=== PATIENT | female | born 1995 | race Caucasian/White ===

== ENCOUNTER 2021-05-30 14:55 | Outpatient (REF) | payer BC, MEDICAID, SELFPAY ==
[2021-05-30 16:32] LABS: MANUAL DIFF FLAG NO
[2021-05-30 16:50] LABS: Basophils Absolute Auto 0.1 X10*3/uL (0.0-0.2); Basophils Percent Auto 0.8 % (0-2); Eosinophils Absolute Auto 0.8 X10*3/uL (0.0-0.4); Eosinophils Percent Auto 9.6 % (0-4); Hematocrit 37.5 % (37-47); Hemoglobin 12.6 g/dl (12.0-16.0); Imm Gran Abs Auto 0.02 X10*3/uL (0.00-0.03); Imm Gran Pct Auto 0.3 % (0.0-0.4); Lymphocytes Absolute Auto 2.1 X10*3/uL (1.2-4.9); Lymphocytes Percent Auto 26.4 % (20-40); Mean Corpuscular HGB Conc 33.6 g/dl (31.0-35.0); Mean Corpuscular Hemoglobin 29.4 pg (27.0-33.0); Mean Corpuscular Volume 87.4 fL (80-98); Monocytes Absolute Auto 0.4 X10*3/uL (0.1-1.2); Monocytes Percent Auto 5.4 % (2-11); Neutrophils Absolute Auto 4.5 X10*3/uL (2.0-8.3); Neutrophils Percent Auto 57.5 % (45-73); Platelet Count 288 X10*3/uL (160-400); Red Blood Count 4.29 X10*6/uL (4.20-5.50); Red Cell Distribution Width 14.3 % (11.0-16.0); White Blood Count 7.9 X10*3/uL (4.8-10.8)
[2021-05-30 17:12] LABS: Alanine Aminotransferase 14 U/L (0-31); Albumin Level 4.5 g/dL (3.5-5.0); Alkaline Phosphatase 52 U/L (39-117); Anion Gap 10 (12-20); Aspartate Amino Transferase 20 U/L (5-31); Bilirubin Total 0.6 mg/dL (0.0-1.0); Blood Urea Nitrogen 9 mg/dL (9-16); C Reactive Protein 0.13 mg/dL (< or = 0.50); Calcium 9.7 mg/dL (8.4-10.2); Carbon Dioxide 28 mmol/L (22-29); Chloride 106 mmol/L (96-108); Estimated Glomerular Filt Rate > 60; Glucose Random 101 mg/dL (60-115); Potassium 3.9 mmol/L (3.3-5.1); Sodium 140 mmol/L (135-145); Total Protein 7.5 g/dL (6.5-8.0)
[2021-05-30 17:33] LABS: TSH reflex Free T4 49.34 uIU/mL (0.32-4.0)
[2021-05-30 18:41] LABS: Free T4 (Free Thyroxine) < 0.40 ng/dL (0.71-1.85)
[2021-06-02 21:07] LABS: IgA 153 mg/dL (47-310); IgG 1203 mg/dL (600-1640); IgM 107 mg/dL (50-300)
[2021-06-05 15:11] LABS: Transglutaminase Ab IgG <1.0 U/mL; Transglutaminase IgA <1.0 U/mL
== END 2021-05-30 14:56 | disposition home or self-care (01) ==
LOC: HO.LAB 14:55
PROVIDERS: PCP Family Medicine; Referring Provider Family Medicine; Visit Provider Internal Medicine Gastroenterology
DX: R19.7 Diarrhea, unspecified (principal); K75.81 Nonalcoholic steatohepatitis (NASH); G89.29 Other chronic pain; R10.33 Periumbilical pain
CPT/HCPCS: 36415; 80053; 82784; 83516; 84439; 84443; 85025; 86003; 86140; 99212

== ENCOUNTER 2021-06-02 15:04 | Outpatient (REF) | payer BC, MEDICAID, SELFPAY ==
[2021-06-03 03:39] LABS: CDiff Gene PCR NEGATIVE (Negative)
[2021-06-06 23:42] LABS: Fecal Fat Qualitative Normal (Normal)
[2021-06-09 22:57] LABS: Calprotectin, Fecal 7 mcg/g
== END 2021-06-02 15:05 | disposition home or self-care (01) ==
LOC: HO.LNP 15:04
PROVIDERS: Visit Provider Internal Medicine Gastroenterology
DX: R10.9 Unspecified abdominal pain (principal); R19.7 Diarrhea, unspecified
CPT/HCPCS: 82705; 83993; 87015; 87045; 87046; 87207; 87329; 87493

== ENCOUNTER 2021-06-21 17:03 | Outpatient (REF) | payer BC, MEDICAID, SELFPAY ==
--- NOTE | ~2021-06-21 | XR_ITS ---
EXAMINATION: XR ABDOMEN KUB CLINICAL INDICATION: Diarrhea COMPARISON: None TECHNIQUE: AP view of the abdomen. FINDINGS: The bowel gas pattern is normal with no evidence of ileus or obstruction. No unusual soft tissue calcifications are noted. The bones are unremarkable. The lung bases are clear. XR/XR KUB IMPRESSION: Normal bowel gas pattern. No abnormal stool burden.
== END 2021-06-21 17:04 | disposition home or self-care (01) ==
LOC: HO.XRAY 17:03
PROVIDERS: PCP Family Medicine; Visit Provider Internal Medicine Gastroenterology
DX: R19.7 Diarrhea, unspecified (principal)
CPT/HCPCS: 74018

== ENCOUNTER → 2021-10-02 08:57 | Outpatient (BNVA) | payer BC, MEDICAID, SELFPAY | PROVIDERS: PCP Family Medicine; Visit Provider Internal Medicine Gastroenterology ==

== ENCOUNTER 2021-11-15 09:11 | Day surgery (SDC) | payer BC, MEDICAID, SELFPAY ==
--- NOTE | 2021-11-14 12:12 | HO.ANESPROP2 ---
Documented by User: Tri Mcgill NP 11/14/21 12:14 HPI - Anesthesia Eval Consult details Narrative: 26yo F for Upper Endoscopy and Colonoscopy ? Chronic steroids for glomerulonephritis Dev delay per H&P PMFSH Active Problems Active Problems: All Active Problems (Updated 05/30/21 @ 15:34 by Sharon Castillo MD) Diarrhea (Acute) Past Medical History Medical History (Updated 11/15/21 @ 10:04 by Thuy De Oliveira, RN) Eosinophilic esophagitis FH: cholecystectomy GERD (gastroesophageal reflux disease) Glomerulonephritis History of Chiari malformation Hx of mitral valve prolapse Family History Family History (Updated 05/30/21 @ 15:07 by YARITZA Welsh) Father HTN (hypertension) Maternal Aunt Thyroid cancer Heart attack Maternal Grandfather Diabetes Liver cyst HTN (hypertension) Surgical History Surgical History Hx of abdominal surgery Hx of cholecystectomy Hx of colonoscopy Hx of esophagogastroduodenoscopy Social History Social History Patient Tobacco Use Status: Never used Tobacco Use of substances other than those prescribed or required for medical reasons: No Are you DNR?: No Advance Directives: No Advance Directives Information Provided: Yes Meds Allergies Allergy/AdvReac Type Severity Reaction Status Date / Time codeine Allergy Unknown unknown Uncoded 10/02/21 08:57 Home Medications Medication Instructions Recorded Confirmed Last Taken Type fluticasone propionate 50 1 inh INHALATION BID 05/30/21 Unknown History mcg/actuation blister powder for inhalation (Flovent Diskus) lidocaine 5 % topical patch 1 patch TOPICAL DAILY PRN 05/30/21 Unknown History lisinopril 2.5 mg tablet 2.5 mg PO DAILY 05/30/21 Unknown History levothyroxine 125 mcg tablet 188 mcg PO DAILY tab 10/02/21 Unknown History furosemide 20 mg tablet 20 mg PO QAM PRN 11/15/21 11/15/21 Unknown History Exam Exam Date and Time: November 14, 2021 1212 Assessment and Plan Assessment Anesthesia Assessment: Chart Reviewed Documented by User: Gretchen Cavanaugh MD 11/15/21 10:26 [facility] Past Medical History Medical History (Updated 11/15/21 @ 10:04 by Thuy De Oliveira, RN) Eosinophilic esophagitis FH: cholecystectomy GERD (gastroesophageal reflux disease) Glomerulonephritis History of Chiari malformation Hx of mitral valve prolapse Family History Family History (Updated 05/30/21 @ 15:07 by YARITZA Welsh) Father HTN (hypertension) Maternal Aunt Thyroid cancer Heart attack Maternal Grandfather Diabetes Liver cyst HTN (hypertension) Family history of problems with anesthesia: No Surgical History Surgical History Hx of abdominal surgery Hx of cholecystectomy Hx of colonoscopy Hx of esophagogastroduodenoscopy History of Problems with Anesthesia: No Social History Social History Patient Tobacco Use Status: Never used Tobacco Use of substances other than those prescribed or required for medical reasons: No Are you DNR?: No Advance Directives: No Advance Directives Information Provided: Yes Meds Allergies Allergy/AdvReac Type Severity Reaction Status Date / Time codeine Allergy Unknown unknown Uncoded 10/02/21 08:57 Home Medications Medication Instructions Recorded Confirmed Last Taken Type fluticasone propionate 50 1 inh INHALATION BID 05/30/21 Unknown History mcg/actuation blister powder for inhalation (Flovent Diskus) lidocaine 5 % topical patch 1 patch TOPICAL DAILY PRN 05/30/21 Unknown History lisinopril 2.5 mg tablet 2.5 mg PO DAILY 05/30/21 Unknown History levothyroxine 125 mcg tablet 188 mcg PO DAILY tab 10/02/21 Unknown History furosemide 20 mg tablet 20 mg PO QAM PRN 11/15/21 11/15/21 Unknown History Exam Airway Mallampati Class: II TM Dist: >3cm Neck ROM: Full Heart: rrr Lungs: cts Assessment and Plan Assessment Anesthesia Assessment: Anesthesia Plan Discussed and Chart Reviewed Final Anesthetic Review Family History of Problems with Anesthesia: No History of Problems with Anesthesia: No NPO: Yes ASA Class: III Final Preanesthetic Review: No Changes in Pt Med Stat, Meds/Allgs Chart Reviewed and Consent Obtained/Reviewed Patient Risk: Intermediate Procedure Risk: Intermediate Anesthetic Plan Anesthetic Plan: MAC: Disposition: Standard PACU
--- NOTE | 2021-11-15 09:41 | MHC.SHP ---
Pre-Procedural Eval Section A Date of Service: 11/15/21 Section B Chief Complaint: GERD, Diarrhea Relevant Family History (Specify if Yes): No Relevant Social History: None Present Medications: see Short Stay Collaborative assessment (glomerulonephritis, developmental delay, hypothyroid) Medical History: Significant History (GERD (gastroesophageal reflux disease) Glomerulonephritis History of Chiari malformation) History of Previous Operations: Relevant previous surgery/procedure and date(s) (surgery for trapped nerves in abdomen) Allergies: Allergies Allergy/AdvReac Type Severity Reaction Status Date / Time codeine Allergy Unknown unknown Uncoded 10/02/21 08:57 Review of Systems Sugical H&P ROS: Negative: Constitution, Cardiovascular, Respiratory, Neurological, Psychiatric, Hem-Onc, Allergic/Immunologic, Gastrointestinal, Genitourinary, Musculoskeletal, Integumentary, Endocrine and Eyes/Ears/Nose/Throat Exam Surgical H&P Exam: Normal: HEENT, Normal: Heart, Normal: Lungs, Normal: Extremities, Normal: Abdomen, Normal: Skin and Normal: Neurological Plan Diagnosis/Plan: Unchanged I have reviewed the history and physical and performed a pertinent physical examination on my patient. No changes have occurred unless specified.
[2021-11-15 09:51] VITALS: BMI 27.5
[2021-11-15 10:05] VITALS: BP 148/99; PULSE 94; RESP 18; TEMP 36.3; O2SAT 98
[2021-11-15] MEDS: Lactated Ringers 1,000 ML 100 ML IVCONT (10:08)
--- NOTE | 2021-11-15 10:21 | P.BOP_ITS ---
Brief Operative Note Date of Service: 11/15/21 Pre-op diagnosis: dysphagia, diarrhea Post-op diagnosis: same Procedure: see op note Surgeon: Sharon Castillo MD Anesthesia: MAC Was an Biostatistics Professor used for this Procedure?: No Estimated blood loss (mL): 0 Condition: stable Disposition: PACU
--- NOTE | 2021-11-15 10:22 | P.OP_ITS ---
Operative Note Operative Note Date of Service: 11/15/21 Narrative: Operative Information Procedure Description: EGD, Colonoscopy Indication: dysphagia, diarrhea Anesthesia: MAC FLEXIBLE TRANSORAL UPPER GASTROINTESTINAL ENDOSCOPY AND COLONOSCOPY PROCEDURE NOTE UPPER ENDOSCOPY Consent: Indications for the procedure and potential complications of bleeding, perforation, reaction to medications and missed diagnosis were discussed with the patient and informed consent was obtained. Instrument: Olympus GIF H 190 J mid size upper endoscope Monitoring: Vital signs and clinical assessment, continuous EKG monitoring, Pulse oximetry, Carbon Dioxide monitoring and blood pressure monitoring were done throughout the procedure. Procedure: The patient was placed in the left lateral decubitis position and pre-procedure medications were administered and a bite block was placed. The endoscope was inserted into the mouth and advanced under direct vision to the third part of duodenum. A careful inspection was made as the upper endoscope was withdrawn including a retroflexed examination of the proximal stomach; Findings and interventions are described below. Findings: Larynx:normal Esophagus: GE junction at 35 cm, diaphragm hiatus at 35 cm, normal mucosa, bx taken from GEJ and random esophagus. LES stretched to 20 mm with balloon and UES to 18 mm, no tears seen Stomach: Normal mucosa. Biopsies were obtained. Grade 2 flap valve on retroflexed examination of the cardia. Duodenum: Mild erythema duodenal bulb, normal descending duodenum, bx taken Intervention: Biopsies as noted above COLONOSCOPY Instrument: Olympus variable stiffness pediatric scope 190L Colonoscopy Monitoring: Vital signs and clinical assessment, continuous EKG monitoring, Pulse oximetry, Carbon Dioxide monitoring and blood pressure monitoring were done throughout the procedure. Colon withdrawal time was 8 minutes. Procedure: The patient was placed in the left lateral decubitis position and pre-procedure medications were administered. After a digital rectal examination of the ano-rectum, the video colonoscope was inserted into the rectum and advanced through the colon to the cecum/TI. The colonoscope was slowly withdrawn in a retrograde panoramic fashion and the colon mucosa was carefully examined including a retroflexed view of the rectum. Findings and interventions are described below. Procedure Difficulty: easy Findings: bx taken from TI and random colon Terminal Ileum-normal Cecum:normal Ascending Colon: normal Transverse Colon -normal Descending Colon:normal Sigmoid Colon: normal Rectum: Retroflexion with small internal hemorrhoids, grade I Anorectum - normal Colon preparation: [place] Bowel Preparation Scale Right colon; 2 Transverse colon: 3 Left colon; 2 (0 = Unprepared colon segment with mucosa not seen due to solid stool that cannot be cleared. 1 = Portion of mucosa of the colon segment seen, but other areas of the colon segment not well seen due to staining, residual stool and/or opaque liquid. 2 = Minor amount of residual staining, small fragments of stool and/or opaque liquid, but mucosa of colon segment seen well. 3 = Entire mucosa of colon segment seen well with no residual staining, small fragments of stool or opaque liquid) Impression and Post Procedure Diagnosis: Endoscopy Findings: mild duodenitis Colonoscopy Findings: internal hemorrhoids Plan: Await Pathology results Repeat Colonoscopy aged 45 or earlier if clinically indicated High fiber diet leaflet avoid straining at stool, epsom salts and sitz bath, anusol supps or cream Above findings were reviewed with the patient and relevant handouts were provided if indicated.
[2021-11-15 11:15] VITALS: BP 123/77; PULSE 93; RESP 16; TEMP 36.4; O2SAT 95
[2021-11-15 11:30] VITALS: BP 133/86; PULSE 91; RESP 16; TEMP 36.4; O2SAT 99
[2021-11-21 19:31] LABS: Lactase 5.3 (15.0-45.5); Maltase 150.6 (100.0-224.4); Palatinase 9.2 (5.0-26.3); Sucrase 41.8 (25.0-69.9)
== END 2021-11-15 12:15 | disposition home or self-care (01) ==
PROVIDERS: PCP Family Medicine; Visit Provider Internal Medicine Gastroenterology
PROC: (CPT 45380; principal; 2021-11-15 10:20)
DX: R19.7 Diarrhea, unspecified (principal); K64.0 First degree hemorrhoids; K21.9 Gastro-esophageal reflux disease without esophagitis; R13.10 Dysphagia, unspecified; K29.80 Duodenitis without bleeding; K44.9 Diaphragmatic hernia without obstruction or gangrene; N05.9 Unspecified nephritic syndrome with unspecified morphologic changes; R62.50 Unspecified lack of expected normal physiological development in childhood; Z87.798 Personal history of other (corrected) congenital malformations; Z98.890 Other specified postprocedural states; Z88.8 Allergy status to other drugs, medicaments and biological substances
CPT/HCPCS: 45380; 43249; 43239; 36415; 82657; 88305; 88342; C1726

== ENCOUNTER → 2021-12-22 10:54 | Outpatient (BNVA) | payer BC, MEDICAID, SELFPAY | PROVIDERS: PCP Family Medicine; Referring Provider Family Medicine; Visit Provider Internal Medicine Gastroenterology | DX: R68.81 Early satiety (principal) ==

== ENCOUNTER → 2022-01-23 07:51 | Outpatient (REF) | payer BC, MEDICAID, SELFPAY ==
--- NOTE | ~2022-01-23 | NM_ITS ---
EXAMINATION: NM RADIONUCLIDE SOLID FOOD GASTRIC EMPTYING 4-HOUR STUDY CLINICAL INFORMATION: Early satiety COMPARISON: None TECHNIQUE: A standard meal consisting of 4 oz of Egg Beaters brand tagged with 931 microcuries Tc-99m Sulfur Colloid, 8 oz water and 2 slices of toast with jelly was administered orally to the patient. Images were obtained using a dual head gamma camera in the anterior and posterior projections over of the stomach immediately post ingestion and at hourly intervals up to 4 hours post ingestion. The anterior and posterior counts at each time interval were averaged using the geometric mean and expressed as percentage of the immediate post ingestion counts. FINDINGS: Imaging obtained over the upper abdomen.: 1 hour 90% (normal 37%-90%) 2 hours 69% (normal 30%-60%) 3 hours 51% 4 hours 26% (normal 0%-10%) NM/NM gastric emptying study IMPRESSION: Delayed emptying as documented above. Findings would be consistent with delayed gastric emptying.
== END ==
LOC: HO.NUCMED 07:51
PROVIDERS: Visit Provider Internal Medicine Gastroenterology
DX: R68.81 Early satiety (principal)
CPT/HCPCS: 78264; A9541; A9560

== ENCOUNTER 2022-05-17 07:24 | Day surgery (SDC) | payer BC, MEDICAID, SELFPAY ==
[2022-05-14 11:24] VITALS: BMI 28.5
--- NOTE | 2022-05-16 12:02 | P.CONAN_ITS ---
Documented by User: Tri Mcgill NP 05/16/22 12:04 HPI - Anesthesia Eval Consult details Narrative: 27yoyo F for Upper Endoscopy Developmental Delay, Mom is legal guardian s/p EGD and [place] 10/2021 with MAC PMFSH Active Problems Active Problems: All Active Problems (Updated 05/14/22 @ 16:02 by Betty Ross, RN) Diarrhea (Acute) Past Medical History Medical History (Updated 05/14/22 @ 16:02 by Betty Ross RN) Chiari I malformation Eosinophilic esophagitis FH: cholecystectomy GERD (gastroesophageal reflux disease) Glomerulonephritis Graves disease Mary's thyroiditis History of Chiari malformation History of seizure Hx of mitral valve prolapse Migraines ADRIANNA (obstructive sleep apnea) Family History Family History Father HTN (hypertension) Maternal Aunt Thyroid cancer Heart attack Maternal Grandfather Diabetes Liver cyst HTN (hypertension) Family history of problems with anesthesia: No Surgical History Surgical History Hx of abdominal surgery Hx of cholecystectomy Hx of colonoscopy Hx of esophagogastroduodenoscopy History of Problems with Anesthesia: No Social History Social History Are you a primary direct care professional to a significant other at home: No Patient Tobacco Use Status: Never used Tobacco Meds Allergies Allergy/AdvReac Type Severity Reaction Status Date / Time rituximab [From Rituxan] Allergy Severe Anaphylaxis Verified 05/14/22 13:05 adhesive tape Allergy Intermediate Hives Verified 05/14/22 11:12 codeine Allergy Intermediate Hives Uncoded 05/14/22 11:12 Home Medications Medication Instructions Recorded Confirmed Last Taken Type fluticasone propionate 50 1 inh inhalation BID 05/30/21 05/14/22 Unknown History mcg/actuation blister powder for inhalation (Flovent Diskus) lidocaine 5 % topical patch 1 patch topical DAILY PRN Pain 05/30/21 05/14/22 Unknown History furosemide 20 mg tablet 20 mg PO QAM PRN swelling 11/15/21 05/14/22 Unknown History levothyroxine 300 mcg tablet 300 mcg PO DAILY 05/14/22 05/14/22 Unknown History lisinopril 10 mg tablet 10 mg PO DAILY 05/14/22 05/14/22 Unknown History sumatriptan succinate 50 mg tablet 2 tab PO Q2H PRN migraine 05/14/22 05/14/22 Unknown History Exam Exam Date and Time: May 16, 2022 1202 Height,Weight and Vital Signs: Height 5 ft Weight 66.224 kg Assessment and Plan Assessment Anesthesia Assessment: Chart Reviewed Final Anesthetic Review Family History of Problems with Anesthesia: No History of Problems with Anesthesia: No Documented by User: Fuentes Amaral MD 05/17/22 16:32 [facility] Past Medical History Medical History (Updated 05/14/22 @ 16:02 by Betty Ross RN) Chiari I malformation Eosinophilic esophagitis FH: cholecystectomy GERD (gastroesophageal reflux disease) Glomerulonephritis Graves disease Mary's thyroiditis History of Chiari malformation History of seizure Hx of mitral valve prolapse Migraines ADRIANNA (obstructive sleep apnea) Family History Family History Father HTN (hypertension) Maternal Aunt Thyroid cancer Heart attack Maternal Grandfather Diabetes Liver cyst HTN (hypertension) Surgical History Surgical History Hx of abdominal surgery Hx of cholecystectomy Hx of colonoscopy Hx of esophagogastroduodenoscopy Social History Social History Are you a primary direct care professional to a significant other at home: No Patient Tobacco Use Status: Never used Tobacco Meds Allergies Allergy/AdvReac Type Severity Reaction Status Date / Time rituximab [From Rituxan] Allergy Severe Anaphylaxis Verified 05/14/22 13:05 adhesive tape Allergy Intermediate Hives Verified 05/14/22 11:12 codeine Allergy Intermediate Hives Uncoded 05/14/22 11:12 Home Medications Medication Instructions Recorded Confirmed Last Taken Type fluticasone propionate 50 1 inh inhalation BID 05/30/21 05/14/22 Unknown History mcg/actuation blister powder for inhalation (Flovent Diskus) lidocaine 5 % topical patch 1 patch topical DAILY PRN Pain 05/30/21 05/14/22 Unknown History furosemide 20 mg tablet 20 mg PO QAM PRN swelling 11/15/21 05/14/22 Unknown History levothyroxine 300 mcg tablet 300 mcg PO DAILY 05/14/22 05/14/22 Unknown History lisinopril 10 mg tablet 10 mg PO DAILY 05/14/22 05/14/22 Unknown History sumatriptan succinate 50 mg tablet 2 tab PO Q2H PRN migraine 05/14/22 05/14/22 Unknown History Exam Airway Mallampati Class: IV (narrow mouth opening ) TM Dist: <=3cm Neck ROM: Full Loose/Missing/Broken Teeth: Yes (Fillings ) Heart: S1,S2 Lungs: b/l breath sounds Assessment and Plan Assessment Anesthesia Assessment: Anesthesia Plan Discussed Final Anesthetic Review NPO: Yes ASA Class: III Final Preanesthetic Review: Meds/Allgs Chart Reviewed, Consent Obtained/Reviewed and Anes Risks/Benef Reviewed Patient Risk: Intermediate Procedure Risk: Intermediate Anesthetic Plan Anesthetic Plan: MAC: Disposition: Standard PACU
--- NOTE | 2022-05-17 06:39 | MHC.SHP ---
Pre-Procedural Eval Section A Date of Service: 05/17/22 Section B Chief Complaint: Early satiety,reflux disease Relevant Family History (Specify if Yes): No Relevant Social History: None Present Medications: see Short Stay Collaborative assessment Medical History: Significant History (Eosinophilic esophagitis FH: cholecystectomy GERD (gastroesophageal reflux disease) Glomerulonephritis History of Chiari malformation Hx of mitral valve prolapse) History of Previous Operations: Relevant previous surgery/procedure and date(s) (Hx of abdominal surgery Hx of cholecystectomy Hx of colonoscopy Hx of esophagogastroduodenoscopy) Allergies: Allergies Allergy/AdvReac Type Severity Reaction Status Date / Time rituximab [From Rituxan] Allergy Severe Anaphylaxis Verified 05/14/22 13:05 adhesive tape Allergy Intermediate Hives Verified 05/14/22 11:12 codeine Allergy Intermediate Hives Uncoded 05/14/22 11:12 Review of Systems Sugical H&P ROS: Negative: Constitution, Cardiovascular, Respiratory, Neurological, Psychiatric, Hem-Onc, Allergic/Immunologic, Gastrointestinal, Genitourinary, Musculoskeletal, Integumentary, Endocrine and Eyes/Ears/Nose/Throat Exam Surgical H&P Exam: Normal: HEENT, Normal: Heart, Normal: Lungs, Normal: Extremities, Normal: Abdomen, Normal: Skin and Normal: Neurological Exam Comment: abnormal facies Plan Diagnosis/Plan: Unchanged I have reviewed the history and physical and performed a pertinent physical examination on my patient. No changes have occurred unless specified.
[2022-05-17 07:45] LABS: UPreg QC Valid YES; Urine Pregnancy NEGATIVE (NEGATIVE)
[2022-05-17 07:48] VITALS: BP 122/90; PULSE 76; RESP 16; TEMP 36.8; O2SAT 98
[2022-05-17] MEDS: Lactated Ringers 1,000 ML 100 ML IVCONT (08:01)
--- NOTE | 2022-05-17 08:36 | W.PM.OPN ---
Operative Note Operative Note Date of Service: 05/17/22 Narrative: Procedure Description: EGD Indication: hx of esophagitis, gastroparesis Anesthesia: MAC FLEXIBLE TRANSORAL UPPER GASTROINTESTINAL ENDOSCOPY UPPER ENDOSCOPY Consent: Indications for the procedure and potential complications of bleeding, perforation, reaction to medications and missed diagnosis were discussed with the patient and informed consent was obtained. Instrument: Olympus GIF H 190 J mid size upper endoscope Monitoring: Vital signs and clinical assessment, continuous EKG monitoring, Pulse oximetry, Carbon Dioxide monitoring and blood pressure monitoring were done throughout the procedure. Procedure: The patient was placed in the left lateral decubitis position and pre-procedure medications were administered and a bite block was placed. The endoscope was inserted into the mouth and advanced under direct vision to the third part of duodenum. A careful inspection was made as the upper endoscope was withdrawn including a retroflexed examination of the proximal stomach; Findings and interventions are described below. Findings: Larynx:normal Esophagus: GE junction at 35 cm, diaphragm hiatus at 35 cm, no varices or esophagitis, bx taken from distal and proximal esophagus in separate jars Stomach: normal mucosa. retained food noted in stomach. Grade 2 flap valve on retroflexed examination of the cardia. The pylorus was v tight, dilated with balloon to 18 mm, no tears seen Duodenum: Normal bulb and descending duodenum, Intervention: Biopsies as noted above, pyloric balloon dilation Impression/Findings: tight pylorus gastroparesis PLAN: cont with PPI for the moment as it is helping, might reduce dose depending on results
[2022-05-17 08:57] VITALS: BP 99/64; PULSE 79; RESP 18; TEMP 36.5; O2SAT 100
[2022-05-17 09:12] VITALS: BP 116/80; PULSE 83; RESP 18; TEMP 36.5; O2SAT 100
== END 2022-05-17 09:37 | disposition home or self-care (01) ==
PROVIDERS: Nurse Practitioner; PCP Family Medicine; Visit Provider Internal Medicine Gastroenterology
PROC: 0DJ08ZZ Inspection of Upper Intestinal Tract, Via Natural or Artificial Opening Endoscopic (ICD-10-PCS; CPT 43235; principal; 2022-05-17 08:30)
DX: K21.9 Gastro-esophageal reflux disease without esophagitis (principal); R68.81 Early satiety; K31.84 Gastroparesis; K31.1 Adult hypertrophic pyloric stenosis; R62.50 Unspecified lack of expected normal physiological development in childhood; K44.9 Diaphragmatic hernia without obstruction or gangrene; G47.33 Obstructive sleep apnea (adult) (pediatric); E05.00 Thyrotoxicosis with diffuse goiter without thyrotoxic crisis or storm; G43.909 Migraine, unspecified, not intractable, without status migrainosus; E06.3 Autoimmune thyroiditis; Z86.69 Personal history of other diseases of the nervous system and sense organs; Z87.798 Personal history of other (corrected) congenital malformations; Z79.899 Other long term (current) drug therapy; Z90.49 Acquired absence of other specified parts of digestive tract; Z98.890 Other specified postprocedural states; Z88.8 Allergy status to other drugs, medicaments and biological substances
CPT/HCPCS: 43245; 43239; 81025; 88305; C1726; J3010

== ENCOUNTER 2022-06-18 11:22 | Outpatient (REF) | payer BC, MEDICAID, SELFPAY | END 2022-06-18 11:23 | disposition home or self-care (01) | LOC: HO.LAB 11:22 | PROVIDERS: PCP Family Medicine; Referring Provider Family Medicine; Visit Provider Internal Medicine Gastroenterology | DX: K21.9 Gastro-esophageal reflux disease without esophagitis (principal) | CPT/HCPCS: 36415; 86003 ==

== ENCOUNTER 2022-11-08 09:31 | Day surgery (SDC) | payer BC, MEDICAID, SELFPAY ==
[2022-09-14 11:39] VITALS: BMI 28.3
--- NOTE | 2022-11-07 10:11 | P.CONAN_ITS ---
Documented by User: Tri Mcgill NP 11/07/22 12:02 HPI - Anesthesia Eval Consult details Narrative: 27yo F for Upper Endoscopy Last EGD 04/2022 with MAC Mom is legal guardian Complicated medical hx. Follows: Cardiology - last seen 10/2022. HTN stable, MVP mild by echo, Palpitations resolved Neuro - Last seen 10/2022. Hyperreflexia, Migraines, Seizures (none in 2+ years), Chiari 1 malform s/p subocciptal decompression Renal - Last seen 10/2022. Membranous GN in remission. BP stable off meds. Creat normalized PMFSH Active Problems Active Problems: All Active Problems (Updated 06/19/22 @ 13:17 by Sharon Castillo MD) Diarrhea (Acute) Eosinophilic esophagitis (Acute) Past Medical History Medical History (Updated 06/19/22 @ 13:17 by Sharon Castillo MD) Chiari I malformation Eosinophilic esophagitis FH: cholecystectomy GERD (gastroesophageal reflux disease) Glomerulonephritis Graves disease Mary's thyroiditis History of Chiari malformation History of seizure Hx of mitral valve prolapse Migraines ADRIANNA (obstructive sleep apnea) Family History Family History Father HTN (hypertension) Maternal Aunt Thyroid cancer Heart attack Maternal Grandfather Diabetes Liver cyst HTN (hypertension) Family history of problems with anesthesia: No Surgical History Surgical History (Updated 09/14/22 @ 11:33 by Jane Yan RN) Hx of abdominal surgery Hx of cholecystectomy Hx of colonoscopy Hx of esophagogastroduodenoscopy History of Problems with Anesthesia: No Social History Social History Are you a primary healthcare administrative assistant to a significant other at home: No Patient Tobacco Use Status: Never used Tobacco Use of substances other than those prescribed or required for medical reasons: No Are you DNR?: No Advance Directives: No Advance Directives Information Provided: Yes Recently lost weight without trying: No Nutrition Risks: No Nutritional Risk Meds Allergies Allergy/AdvReac Type Severity Reaction Status Date / Time rituximab [From Rituxan] Allergy Severe Anaphylaxis Verified 06/18/22 11:47 adhesive tape Allergy Intermediate Hives Verified 06/18/22 11:47 codeine Allergy Intermediate Hives Uncoded 06/18/22 11:47 Home Medications Medication Instructions Recorded Confirmed Last Taken Type fluticasone propionate 50 1 inh inhalation BID 05/30/21 05/14/22 Unknown History mcg/actuation blister powder for inhalation (Flovent Diskus) lidocaine 5 % topical patch 1 patch topical DAILY PRN Pain 05/30/21 05/14/22 Unknown History furosemide 20 mg tablet 20 mg PO QAM PRN swelling 11/15/21 05/14/22 Unknown History lisinopril 10 mg tablet 10 mg PO DAILY 05/14/22 05/14/22 Unknown History sumatriptan succinate 50 mg tablet 2 tab PO Q2H PRN migraine 05/14/22 05/14/22 Unknown History levothyroxine 300 mcg tablet 150 mcg PO DAILY 06/18/22 Unknown History rimegepant 75 mg disintegrating mg PO 06/18/22 Unknown History tablet (Nurtec ODT) Exam Exam Date and Time: November 07, 2022 1011 Height,Weight and Vital Signs: Height 5 ft Weight 65.771 kg Pertinent Lab Results Pertinent Lab Results: From outside facility 09/2022 K 4.0 Na 139 CO2 27 Cl 101 BUN 8 Creat 0.9 Narrative Narrative: ECHO 2021 With contrast Nml LV size and function with EF 60-65% No focal wall abnormalities RV was not well visualized Trace to mild MR with eccentric, posteriorly directed jet. PASP WNL Assessment and Plan Assessment Anesthesia Assessment: Chart Reviewed Final Anesthetic Review Family History of Problems with Anesthesia: No History of Problems with Anesthesia: No Documented by User: Rajani Benítez MD 11/08/22 10:23 [facility] Past Medical History Medical History (Updated 06/19/22 @ 13:17 by Sharon Castillo MD) Chiari I malformation Eosinophilic esophagitis FH: cholecystectomy GERD (gastroesophageal reflux disease) Glomerulonephritis Graves disease Mary's thyroiditis History of Chiari malformation History of seizure Hx of mitral valve prolapse Migraines ADRIANNA (obstructive sleep apnea) Family History Family History Father HTN (hypertension) Maternal Aunt Thyroid cancer Heart attack Maternal Grandfather Diabetes Liver cyst HTN (hypertension) Surgical History Surgical History (Updated 09/14/22 @ 11:33 by Jane Yan RN) Hx of abdominal surgery Hx of cholecystectomy Hx of colonoscopy Hx of esophagogastroduodenoscopy Social History Social History Are you a primary healthcare administrative assistant to a significant other at home: No Patient Tobacco Use Status: Never used Tobacco Use of substances other than those prescribed or required for medical reasons: No Are you DNR?: No Advance Directives: No Advance Directives Information Provided: Yes Recently lost weight without trying: No Nutrition Risks: No Nutritional Risk Meds Allergies Allergy/AdvReac Type Severity Reaction Status Date / Time rituximab [From Rituxan] Allergy Severe Anaphylaxis Verified 06/18/22 11:47 adhesive tape Allergy Intermediate Hives Verified 06/18/22 11:47 codeine Allergy Intermediate Hives Uncoded 06/18/22 11:47 Home Medications Medication Instructions Recorded Confirmed Last Taken Type fluticasone propionate 50 1 inh inhalation BID 05/30/21 05/14/22 Unknown History mcg/actuation blister powder for inhalation (Flovent Diskus) lidocaine 5 % topical patch 1 patch topical DAILY PRN Pain 05/30/21 05/14/22 Unknown History furosemide 20 mg tablet 20 mg PO QAM PRN swelling 11/15/21 05/14/22 Unknown History lisinopril 10 mg tablet 10 mg PO DAILY 05/14/22 05/14/22 Unknown History sumatriptan succinate 50 mg tablet 2 tab PO Q2H PRN migraine 05/14/22 05/14/22 Unknown History levothyroxine 300 mcg tablet 150 mcg PO DAILY 06/18/22 Unknown History rimegepant 75 mg disintegrating mg PO 06/18/22 Unknown History tablet (Nurtec ODT) Exam Airway Mallampati Class: III (small mouth poorlpening) TM Dist: <=3cm Neck ROM: Full Heart: rr Lungs: cta Assessment and Plan Assessment Anesthesia Assessment: Anesthesia Plan Discussed Final Anesthetic Review NPO: Yes ASA Class: III Final Preanesthetic Review: No Changes in Pt Med Stat, Meds/Allgs Chart Reviewed and Consent Obtained/Reviewed Patient Risk: Intermediate Procedure Risk: Low Anesthetic Plan Anesthetic Plan: MAC: Disposition: Standard PACU
[2022-11-08 09:47] VITALS: BMI 27.7
[2022-11-08 09:55] VITALS: BP 127/94; PULSE 104; RESP 16; TEMP 37; O2SAT 100
[2022-11-08 10:01] LABS: UPreg QC Valid YES; Urine Pregnancy NEGATIVE (NEGATIVE)
[2022-11-08] MEDS: Lactated Ringers 1,000 ML 100 ML IVCONT (10:08)
--- NOTE | 2022-11-08 10:18 | P.HPSUR_ITS ---
Pre-Procedural Eval Section A Date of Service: 11/08/22 Section B Chief Complaint: Eosinophilic esophagitis Relevant Family History (Specify if Yes): No Relevant Social History: None Present Medications: see Short Stay Collaborative assessment Medical History: Significant History (Chiari I malformation Eosinophilic esophagitis FH: cholecystectomy GERD (gastroesophageal reflux disease) Glomerulonephritis Graves disease Mary's thyroiditis History of Chiari malformation History of seizure Hx of mitral valve prolapse Migraines ADRIANNA (obstructive sleep apnea)) History of Previous Operations: Relevant previous surgery/procedure and date(s) (Hx of abdominal surgery Hx of cholecystectomy Hx of colonoscopy Hx of esophagogastroduodenoscopy) Allergies: Allergies Allergy/AdvReac Type Severity Reaction Status Date / Time rituximab [From Rituxan] Allergy Severe Anaphylaxis Verified 06/18/22 11:47 adhesive tape Allergy Intermediate Hives Verified 06/18/22 11:47 codeine Allergy Intermediate Hives Uncoded 06/18/22 11:47 Review of Systems Sugical H&P ROS: Negative: Constitution, Cardiovascular, Respiratory, Neurological, Psychiatric, Hem-Onc, Allergic/Immunologic, Gastrointestinal, Genitourinary, Musculoskeletal, Integumentary, Endocrine and Eyes/Ears/ Nose/Throat Exam Surgical H&P Exam: Normal: HEENT, Normal: Heart, Normal: Lungs, Normal: Extremities, Normal: Abdomen, Normal: Skin and Normal: Neurological Plan Diagnosis/Plan: Unchanged I have reviewed the history and physical and performed a pertinent physical examination on my patient. No changes have occurred unless specified. Time Spent With Patient Time: Total time managing care of this patient today ____ minutes.
--- NOTE | 2022-11-08 10:49 | W.PM.OPN ---
Operative Note Operative Note Date of Service: 11/08/22 Narrative: Procedure Description: EGD Indication: dysphagia Anesthesia: MAC FLEXIBLE TRANSORAL UPPER GASTROINTESTINAL ENDOSCOPY UPPER ENDOSCOPY Consent: Indications for the procedure and potential complications of bleeding, perforation, reaction to medications and missed diagnosis were discussed with the patient and informed consent was obtained. Instrument: Olympus GIF H 190 J mid size upper endoscope Monitoring: Vital signs and clinical assessment, continuous EKG monitoring, Pulse oximetry, Carbon Dioxide monitoring and blood pressure monitoring were done throughout the procedure. Procedure: The patient was placed in the left lateral decubitis position and pre-procedure medications were administered and a bite block was placed. The endoscope was inserted into the mouth and advanced under direct vision to the third part of duodenum. A careful inspection was made as the upper endoscope was withdrawn including a retroflexed examination of the proximal stomach; Findings and interventions are described below. Findings: Larynx:normal Esophagus: GE junction at 35? cm, diaphragm hiatus at 35 cm, no varices or esophagitis, bx taken from GEJ, distal and proximal esophagus in separate jars. LES balloon dilated to 18 mm and UES to 15 mm-no tears seen. Mucosa looked featureless. Stomach: normal mucosa. Grade 2 flap valve on retroflexed examination of the cardia. Duodenum: Normal bulb and descending duodenum, Intervention: Biopsies as noted above, balloon dilation Impression/Findings: chronic esophgeal changes from EoE PLAN: cont with PPI, if ongoing EoE maybe consider dupilumab
[2022-11-08 10:58] VITALS: BP 128/77; PULSE 104; RESP 14; TEMP 36.3; O2SAT 97
[2022-11-08 11:13] VITALS: BP 131/83; PULSE 105; RESP 16; TEMP 37.3; O2SAT 99
== END 2022-11-08 11:33 | disposition home or self-care (01) ==
PROVIDERS: Nurse Practitioner; PCP Family Medicine; Visit Provider Internal Medicine Gastroenterology
PROC: 0DJ08ZZ Inspection of Upper Intestinal Tract, Via Natural or Artificial Opening Endoscopic (ICD-10-PCS; CPT 43235; principal; 2022-11-08 11:30)
DX: K20.0 Eosinophilic esophagitis (principal); K44.9 Diaphragmatic hernia without obstruction or gangrene; K21.9 Gastro-esophageal reflux disease without esophagitis; N05.9 Unspecified nephritic syndrome with unspecified morphologic changes; R62.50 Unspecified lack of expected normal physiological development in childhood; I10 Essential (primary) hypertension; G93.5 Compression of brain; G43.909 Migraine, unspecified, not intractable, without status migrainosus; G47.33 Obstructive sleep apnea (adult) (pediatric); R19.7 Diarrhea, unspecified; R56.9 Unspecified convulsions; E05.00 Thyrotoxicosis with diffuse goiter without thyrotoxic crisis or storm; E06.3 Autoimmune thyroiditis; I34.1 Nonrheumatic mitral (valve) prolapse; L23.1 Allergic contact dermatitis due to adhesives; Z79.51 Long term (current) use of inhaled steroids; Z79.899 Other long term (current) drug therapy; Z88.8 Allergy status to other drugs, medicaments and biological substances; Z90.49 Acquired absence of other specified parts of digestive tract
CPT/HCPCS: 43249; 43239; 81025; 88305; C1726; J3010

== ENCOUNTER → 2022-11-19 13:03 | Outpatient (BNVA) | payer BC, MEDICAID, SELFPAY | PROVIDERS: PCP Family Medicine; Visit Provider Internal Medicine Gastroenterology | DX: Z13.89 Encounter for screening for other disorder (principal) ==

== ENCOUNTER 2022-12-06 13:20 | Outpatient (REF) | payer BC, MEDICAID, SELFPAY ==
--- NOTE | ~2022-12-06 | US_ITS ---
EXAMINATION: US COMPLETE ABDOMEN WITH LIVER ELASTOGRAPHY CLINICAL INFORMATION: Other specified diseases of biliary tract. Gastroesophageal reflux disease. Dilated common bile duct on outside imaging. Rule out stones. COMPARISON: Previous CT of the abdomen and pelvis October 2021 TECHNIQUE: Real-time imaging of the abdominal viscera. Noninvasive ultrasound liver fibrosis assessment is performed using Narinder ElastPQ point quantification shear wave elastography (2D-SWE) with a C5-2 MHz transducer. Multiple elastography samples are obtained. FINDINGS: PANCREAS: The visualized pancreatic head and body are normal in appearance. The remainder of the pancreas is obscured from visualization by the overlying bowel gas. ABDOMINAL AORTA: The proximal, middle, and distal aortic segments are normal in caliber. INFERIOR VENA CAVA: Visualized portions are normal. LIVER: Normal. The liver demonstrates normal size, contour and echogenicity. No focal lesion. Question mild intrahepatic biliary duct dilatation. The right lobe measures 13 cm in length. The left lobe measures 8 cm in length. Portal flow is normal/hepatopedal Shear wave liver elastography median stiffness is 1.5 m/s (reference: normal median stiffness is 1.3 m/s or less). IQR/median stiffness to assess sampling precision is 0.07 (reference: good quality data set is IQR/median stiffness of 0.15 or less). GALLBLADDER: Surgically removed. COMMON BILE DUCT: Slightly dilated measuring 0.9 cm in diameter. No common bile duct stone seen. RIGHT KIDNEY: Normal. No hydronephrosis. No renal calculi or focal parenchymal lesions. The kidney measures 9 cm in maximum dimension. LEFT KIDNEY: Normal. No hydronephrosis. No renal calculi or focal parenchymal lesions. The kidney measures 8.5 cm in maximum dimension. SPLEEN: Normal. The spleen measures 10 cm in maximum dimension. FREE FLUID: None. US/US abdomen comp w elastography IMPRESSION: 1. Impression mild intra and extrahepatic biliary duct dilatation. No common bile duct stone seen. Limited visualization of the tail the pancreas. 2. Liver elastography: Adequate liver sampling. In the absence of other known clinical signs, rules out compensated advanced chronic liver disease. REFERENCE: Society of Radiologists in Ultrasound Liver Stiffness Thresholds (2020): LIVER STIFFNESS THRESHOLDS: *Liver Stiffness equal or less than 1.3 m/s: High probability of being normal. *Liver Stiffness less than 1.7 m/s: In the absence of other known clinical signs, rules out compensated advanced chronic liver disease. *Liver Stiffness 1.7-2.1 m/s: Suggestive of compensated advanced chronic liver disease but need further test for confirmation. *Liver Stiffness over 2.1 m/s: Rules in compensated advanced chronic liver disease. *Liver Stiffness over 2.4 m/s: Suggestive of clinically significant portal hypertension. QUALITY OF DATA SET: *IQR/Median value equal or less than 0.15 implies a quality data set. *IQR/Median value over 0.15 implies a poor quality data set. SIGNIFICANT CHANGE FROM PRIOR EXAM: Significant change if liver stiffness measurement is 10% or greater from prior exam. OTHER CONSIDERATIONS: The stage of liver fibrosis may be overestimated in the setting of acute hepatitis, liver inflammation, elevated liver function tests, hepatic vascular congestion, obstructive cholestasis, non-fasting state, and infiltrative diseases such as amyloidosis and lymphoma. In some patients with NAFLD, the liver stiffness thresholds for compensated advanced chronic liver disease may be lower. In causes other than viral hepatitis and NAFLD, liver stiffness thresholds are not well established.
== END 2022-12-06 13:21 | disposition home or self-care (01) ==
LOC: HO.US 13:20
PROVIDERS: PCP Family Medicine; Visit Provider Internal Medicine Gastroenterology
DX: K83.8 Other specified diseases of biliary tract (principal)
CPT/HCPCS: 76705; 76981

== ENCOUNTER 2023-02-28 06:53 | Day surgery (SDC) | payer OTHER, MEDICAID, SELFPAY ==
[2023-02-26 14:26] VITALS: BMI 27.9
--- NOTE | 2023-02-28 06:08 | MHC.SHP ---
Pre-Procedural Eval Section A Date of Service: 02/28/23 Section B Chief Complaint: Gastro-esophageal reflux disease without esophagit Details of Present Illness: soem recurrence of choking, but no major dysphagia, had budesonide slurry for 3 months Relevant Family History (Specify if Yes): No Relevant Social History: None Present Medications: see Short Stay Collaborative assessment Medical History: Significant History (Chiari I malformation Eosinophilic esophagitis FH: cholecystectomy GERD (gastroesophageal reflux disease) Glomerulonephritis Graves disease Mary's thyroiditis History of Chiari malformation History of seizure Hx of mitral valve prolapse Migraines ADRIANNA (obstructive sleep apnea)) History of Previous Operations: Relevant previous surgery/procedure and date(s) (Hx of abdominal surgery Hx of cholecystectomy Hx of colonoscopy Hx of esophagogastroduodenoscopy) Allergies: Allergies Allergy/AdvReac Type Severity Reaction Status Date / Time rituximab [From Rituxan] Allergy Severe Anaphylaxis Verified 11/19/22 13:18 adhesive tape Allergy Intermediate Hives Verified 11/19/22 13:18 codeine Allergy Intermediate Hives Verified 02/26/23 14:27 Review of Systems Sugical H&P ROS: Negative: Constitution, Cardiovascular, Respiratory, Neurological, Psychiatric, Hem-Onc, Allergic/Immunologic, Gastrointestinal, Genitourinary, Musculoskeletal, Integumentary, Endocrine and Eyes/Ears/Nose/Throat Exam Surgical H&P Exam: Normal: HEENT, Normal: Heart, Normal: Lungs, Normal: Extremities, Normal: Abdomen, Normal: Skin and Normal: Neurological Exam Comment: facial dysmorphia Plan Diagnosis/Plan: Unchanged I have reviewed the history and physical and performed a pertinent physical examination on my patient. No changes have occurred unless specified. Time Spent With Patient Time: Total time managing care of this patient today ____ minutes.
[2023-02-28 07:37] VITALS: BP 128/94; PULSE 81; RESP 16; TEMP 36.2; O2SAT 100
[2023-02-28 07:38] LABS: UPreg QC Valid YES; Urine Pregnancy NEGATIVE (NEGATIVE)
[2023-02-28] MEDS: Lactated Ringers 1,000 ML 100 ML IVCONT (07:48)
--- NOTE | 2023-02-28 08:01 | W.PM.OPN ---
Operative Note Operative Note Date of Service: 02/28/23 Narrative: Procedure Description: EGD Indication: GERD, esophagitis Anesthesia: MAC FLEXIBLE TRANSORAL UPPER GASTROINTESTINAL ENDOSCOPY UPPER ENDOSCOPY Consent: Indications for the procedure and potential complications of bleeding, perforation, reaction to medications and missed diagnosis were discussed with the patient and informed consent was obtained. Instrument: Olympus GIF H 190 J mid size upper endoscope Monitoring: Vital signs and clinical assessment, continuous EKG monitoring, Pulse oximetry, Carbon Dioxide monitoring and blood pressure monitoring were done throughout the procedure. Procedure: The patient was placed in the left lateral decubitis position and pre-procedure medications were administered and a bite block was placed. The endoscope was inserted into the mouth and advanced under direct vision to the third part of duodenum. A careful inspection was made as the upper endoscope was withdrawn including a retroflexed examination of the proximal stomach; Findings and interventions are described below. Findings: Larynx:normal Esophagus: GE junction at 35? cm, diaphragm hiatus at 35 cm, no varices or esophagitis, bx taken from GEJ,? distal and proximal esophagus in separate jars. LES balloon dilated to 18 mm and UES to 16 mm-no tears seen.? Mucosa looked featureless as before Stomach: Patchy erythema with retained food particles noted.? Grade 2 flap valve on retroflexed examination of the cardia. The pylorus seemed tight so dilated with balloon to 17 mm. No tears seen Duodenum: Normal bulb and descending duodenum, bx taken Intervention: Biopsies as noted above, balloon dilation Impression/Findings: chronic esophageal changes from EoE gastroparesis gastritis PLAN: resume PPI, if ongoing EoE maybe consider dupilumab as she just finished trial with budesonide follow gastroparesis diet
--- NOTE | 2023-02-28 08:11 | P.CONAN_ITS ---
[facility] Active Problems Active Problems: All Active Problems (Updated 11/19/22 @ 13:36 by Sharon Castillo MD) Diarrhea (Acute) Eosinophilic esophagitis (Acute) Dilated cbd, acquired (Acute) Past Medical History Medical History (Updated 11/19/22 @ 13:36 by Sharon Castillo MD) Chiari I malformation Eosinophilic esophagitis FH: cholecystectomy GERD (gastroesophageal reflux disease) Glomerulonephritis Graves disease Mary's thyroiditis History of Chiari malformation History of seizure Hx of mitral valve prolapse Migraines ADRIANNA (obstructive sleep apnea) Family History Family History Father HTN (hypertension) Maternal Aunt Thyroid cancer Heart attack Maternal Grandfather Diabetes Liver cyst HTN (hypertension) Family history of problems with anesthesia: No Surgical History Surgical History (Updated 02/26/23 @ 14:22 by Jane Yan RN) Hx of abdominal surgery Hx of cholecystectomy Hx of colonoscopy Hx of esophagogastroduodenoscopy History of Problems with Anesthesia: No Social History Social History Are you a primary early breastfeeding care specialist to a significant other at home: No Patient Tobacco Use Status: Never used Tobacco Use of substances other than those prescribed or required for medical reasons: No Are you DNR?: No Advance Directives: No Advance Directives Information Provided: Yes Meds Allergies Allergy/AdvReac Type Severity Reaction Status Date / Time rituximab [From Rituxan] Allergy Severe Anaphylaxis Verified 11/19/22 13:18 adhesive tape Allergy Intermediate Hives Verified 11/19/22 13:18 codeine Allergy Intermediate Hives Verified 02/26/23 14:27 Active Medications: Current Medications Lactated Ringer's (Lr) 1,000 mls @ 100 mls/hr IVCONT .Q10H MARK Last Admin: 02/28/23 07:48 Dose: 100 mls/hr Home Medications Medication Instructions Recorded Confirmed Last Taken Type fluticasone propionate 50 1 inh inhalation BID 05/30/21 05/14/22 Unknown History mcg/actuation blister powder for inhalation (Flovent Diskus) lidocaine 5 % topical patch 1 patch topical DAILY PRN Pain 05/30/21 05/14/22 Unknown History furosemide 20 mg tablet 20 mg PO QAM PRN swelling 11/15/21 05/14/22 Unknown History rimegepant 75 mg disintegrating mg PO 06/18/22 Unknown History tablet (Nurtec ODT) cholecalciferol (vitamin D3) 50 100 mcg PO DAILY 11/19/22 02/26/23 Unknown History mcg (2,000 unit) chewable tablet gabapentin 300 mg capsule 300 mg PO BEDTIME 11/19/22 Unknown History levothyroxine 300 mcg tablet 300 mcg PO DAILY 11/19/22 02/26/23 Unknown History Exam Exam Date and Time: February 28, 2023 0811 Height,Weight and Vital Signs: Height 5 ft Weight 64.864 kg Last Vital Signs Temp 97.1 F 02/28/23 07:37 Pulse 81 02/28/23 07:37 Resp 16 02/28/23 07:37 BP 128/94 H 02/28/23 07:37 Pulse Ox 100 02/28/23 07:37 O2 Del Method Room Air 02/28/23 07:37 Pertinent Lab Results Pertinent Lab Results: Laboratory Tests 02/28/23 07:24 Urine Test NEGATIVE Airway Mallampati Class: III TM Dist: >3cm Neck ROM: Full Assessment and Plan Assessment Anesthesia Assessment: Anesthesia Plan Discussed and Chart Reviewed Final Anesthetic Review Family History of Problems with Anesthesia: No History of Problems with Anesthesia: No NPO: Yes ASA Class: III Final Preanesthetic Review: No Changes in Pt Med Stat, Meds/Allgs Chart Reviewed, Consent Obtained/Reviewed and Anes Risks/Benef Reviewed Patient Risk: Intermediate Procedure Risk: Low Anesthetic Plan Anesthetic Plan: MAC: Disposition: Standard PACU
[2023-02-28 08:43] VITALS: BP 98/66; PULSE 94; RESP 12; TEMP 36.4; O2SAT 98
[2023-02-28 08:58] VITALS: BP 97/64; PULSE 83; RESP 16; O2SAT 97
[2023-02-28 09:13] VITALS: BP 112/81; PULSE 85; RESP 16; TEMP 36.3; O2SAT 97
[2023-02-28 09:25] VITALS: BP 122/83; PULSE 81; RESP 16; TEMP 36.3; O2SAT 99
== END 2023-02-28 09:32 | disposition home or self-care (01) ==
PROVIDERS: Anesthesiology; PCP Family Medicine; Visit Provider Internal Medicine Gastroenterology
PROC: 0DJ08ZZ Inspection of Upper Intestinal Tract, Via Natural or Artificial Opening Endoscopic (ICD-10-PCS; CPT 43235; principal; 2023-02-28 08:30)
DX: K21.9 Gastro-esophageal reflux disease without esophagitis (principal); R09.89 Other specified symptoms and signs involving the circulatory and respiratory systems; K20.0 Eosinophilic esophagitis; K31.84 Gastroparesis; K29.50 Unspecified chronic gastritis without bleeding; K44.9 Diaphragmatic hernia without obstruction or gangrene; G93.5 Compression of brain; N05.9 Unspecified nephritic syndrome with unspecified morphologic changes; E05.00 Thyrotoxicosis with diffuse goiter without thyrotoxic crisis or storm; G47.33 Obstructive sleep apnea (adult) (pediatric); Z79.51 Long term (current) use of inhaled steroids; Z79.899 Other long term (current) drug therapy; Z88.8 Allergy status to other drugs, medicaments and biological substances; Z91.040 Latex allergy status
CPT/HCPCS: 43249; 43245; 43239; 81025; 88305; 88342; C1726

== ENCOUNTER → 2023-02-28 06:53 | Outpatient (BNV) | payer OTHER, MEDICAID, SELFPAY | PROVIDERS: PCP Family Medicine; Visit Provider Internal Medicine Gastroenterology | DX: K21.00 Gastro-esophageal reflux disease with esophagitis, without bleeding (principal); K31.84 Gastroparesis | CPT/HCPCS: 43249 ==

== ENCOUNTER 2023-05-20 14:21 | Outpatient (AMB) | payer OTHER, MEDICAID, SELFPAY ==
--- NOTE | 2023-05-20 14:21 | MHC.OFFVIS ---
Intake Intake Visit Reasons: 6 month follow up Intake Note: Gretchen CC: was vomiting for a week - mon through sat. She still feels like she has to throw up but she has not since saturday. Throat feels tight. She is not having issues swallowing it just feels very tight. President Required: No Allergies rituximab [From Rituxan] Allergy (Severe, Verified 05/20/23 14:21) Anaphylaxis adhesive tape Allergy (Intermediate, Verified 05/20/23 14:21) Hives codeine Allergy (Intermediate, Verified 05/20/23 14:21) Hives HPI 6 month follow up HPI Details 27 yr old f w hx of cholecystectomy, EoE called for f/u RECAP: ?She was c/o food sticking in her? stomach ?she was vomiting every few days with formed food ?not? c/o abdominal pain ?denies constipation or diarrhea, going to bathroom? every day ?she is not taking cyprohepatadine ?she only takes? zofran ODT and it doesn help much ?not tried PPI for? years ?she had been on steroids for 6 months for glomerulonephritis,? got rituximab ?appetite is fair ?throat gould loly when? drinking. she had been prescribed solutab she was having further dysphagia so EGD was repeated with dilation 11/[address] scan at [facility] due to burning thigh pain thought to be due to nerve irritation --slightly dilated CBD was noted she never felt a difference with budesonide slurry, PPI worked way better TESTS: c diff negative TSH is v high, on replacement now stool giardia neg fecal calprotectin neg fecal fat-- neg ENDOSCOPIES: EGD/Colonoscopy: Endoscopy Findings: mild duodenitis Colonoscopy Findings: internal hemorrhoids PATH: active esophagitis --GERD vs EoE? > 50 eos seen EGD: 04/2022- numerous eosinophils distal and proximal in esophagus, some retained food dilated pylorus with 18 mm EGD 10/2022-- ongoing eosinophilic esophagitis and eosinophils at [facility], dilation done IMAGING: GES: 01/2022--- pos 26% at 4 hrs INTERIM: GN is in remission she had choking and propping head of bed helped her she had some nause and vomiting, vomiting has gone now, no issues with swallowing but can feel tight when doing appetite is good no abdominal pain diarrhea not an issue until this week EXAM: GENERAL: The patient is well developed and nontoxic. Downs facies, relaxed Assessments 1. Chronic GERD vs EOe or combination of both 2. diarrhea had been good with rabeprazole, may have viral syndrome but seems like improving, 3. lactose intolerance PLAN: 1/ increase rabeprazole to 20 mg BID 2/ Repeat EGD maybe in 3-6 months and if still xs eos then dupulimab PFSH Medical History (Updated 11/19/22 @ 13:36 by Sharon Castillo MD) Chiari I malformation Graves disease Migraines Mary's thyroiditis ADRIANNA (obstructive sleep apnea) History of seizure Eosinophilic esophagitis Hx of mitral valve prolapse Glomerulonephritis GERD (gastroesophageal reflux disease) History of Chiari malformation FH: cholecystectomy Surgical History (Updated 02/26/23 @ 14:22 by Jane Yan RN) Hx of colonoscopy Hx of esophagogastroduodenoscopy Hx of abdominal surgery Hx of cholecystectomy Family History Father HTN (hypertension) Maternal Aunt Thyroid cancer Heart attack Maternal Grandfather Diabetes Liver cyst HTN (hypertension) Social History Are you a primary healthcare administrative assistant to a significant other at home: No Patient Tobacco Use Status: Never used Tobacco Telehealth Telehealth Location of provider rendering services: practice address Location of patient: address on file Patient Identification confirmed using: Name, : Yes Telehealth method: video Patient verbally consented to treatment: Yes Patient verbally consented to billing insurance company: Yes Patient informed of any privacy concerns related to visit: Yes Minutes spent on Phone/Video with Pt.: 8 Coding Level of Care Code Tele Est Pt Level 3 (43181)
== END 2023-05-20 15:45 | disposition home or self-care (01) ==
LOC: HO.HGI 14:21
PROVIDERS: PCP Family Medicine; Visit Provider Internal Medicine Gastroenterology
DX: K21.9 Gastro-esophageal reflux disease without esophagitis (principal); R19.7 Diarrhea, unspecified; E73.9 Lactose intolerance, unspecified
CPT/HCPCS: 99213

== ENCOUNTER → 2023-05-20 14:21 | Outpatient (BNVA) | payer OTHER, MEDICAID, SELFPAY | PROVIDERS: PCP Family Medicine; Visit Provider Internal Medicine Gastroenterology ==

== ENCOUNTER 2023-08-26 14:14 | Outpatient (AMB) | payer OTHER, MEDICAID, SELFPAY ==
--- NOTE | 2023-08-26 14:15 | A.OFFVIS_ITS ---
Intake Intake Visit Reasons: 3M follow up Intake Note: Gretchen presents as a video call today. CC: Mom states that she is not having any concerns today. Allergies rituximab [From Rituxan] Allergy (Severe, Verified 08/26/23 14:15) Anaphylaxis adhesive tape Allergy (Intermediate, Verified 08/26/23 14:15) Hives codeine Allergy (Intermediate, Verified 08/26/23 14:15) Hives HPI 3M follow up HPI Details 28 yr old f w hx of cholecystectomy, EoE called for f/u RECAP: She was c/o food sticking in her stomach she was vomiting every few days with formed food not c/o abdominal pain denies constipation or diarrhea, going to bathroom every day she is not taking cyprohepatadine she only takes zofran ODT and it doesn help much not tried PPI for years she had been on steroids for 6 months for glomerulonephritis, got rituximab appetite is fair throat gould loly when drinking. she had been prescribed solutab she was having further dysphagia so EGD was repeated with dilation 11/[address] scan at [facility] due to burning thigh pain thought to be due to nerve irritation --slightly dilated CBD was noted she never felt a difference with budesonide slurry, PPI worked way better TESTS: c diff negative TSH is v high, on replacement now stool giardia neg fecal calprotectin neg fecal fat-- neg ENDOSCOPIES: EGD/Colonoscopy: Endoscopy Findings: mild duodenitis Colonoscopy Findings: internal hemorrhoids PATH: active esophagitis --GERD vs EoE > 50 eos seen EGD: 04/2022- numerous eosinophils distal and proximal in esophagus, some retained food dilated pylorus with 18 mm EGD 10/2022-- ongoing eosinophilic esophagitis and eosinophils at [facility], dilation done IMAGING: GES: 01/2022--- pos 26% at 4 hrs INTERIM: GN remains in remission she is also taking rabeprazole and no issues with regurg or dysphagia her main issues is thyroid management no nausea or vomiting appetite is good no abdominal pain Assessments 1. Chronic GERD vs EOe or combination of both, on rabeprazole with good effect 2. dysphagia related to 1/ above 3. lactose intolerance PLAN: 1/ cont rabeprazole to 20 mg BID 2/ Repeat EGD as needed [facility] Medical History Chiari I malformation Graves disease Migraines Mary's thyroiditis ADRIANNA (obstructive sleep apnea) History of seizure Eosinophilic esophagitis Hx of mitral valve prolapse Glomerulonephritis GERD (gastroesophageal reflux disease) History of Chiari malformation FH: cholecystectomy Surgical History Hx of colonoscopy Hx of esophagogastroduodenoscopy Hx of abdominal surgery Hx of cholecystectomy Family History Father HTN (hypertension) Maternal Aunt Thyroid cancer Heart attack Maternal Grandfather Diabetes Liver cyst HTN (hypertension) Social History Are you a primary career technology teacher to a significant other at home: No Patient Tobacco Use Status: Never used Tobacco Assessment & Plan Assessment & Plan (1) Eosinophilic esophagitis: Code(s): K20.0 - Eosinophilic esophagitis Plan: PLAN: 1/ cont rabeprazole to 20 mg BID 2/ Repeat EGD as needed Telehealth Telehealth Location of provider rendering services: practice address Location of patient: address on file Patient Identification confirmed using: Name, : Yes Telehealth method: voice only Patient verbally consented to treatment: Yes Patient verbally consented to billing insurance company: Yes Patient informed of any privacy concerns related to visit: Yes Minutes spent on Phone/Video with Pt.: 8 Coding Level of Care Code Tele Est Pt Level 3 (42769) Diagnoses Eosinophilic esophagitis K20.0
== END 2023-08-26 15:59 | disposition home or self-care (01) ==
LOC: HO.HGI 14:14
PROVIDERS: PCP Family Medicine; Visit Provider Internal Medicine Gastroenterology
DX: K20.0 Eosinophilic esophagitis (principal)
CPT/HCPCS: 99213

== ENCOUNTER → 2023-08-26 14:14 | Outpatient (BNVA) | payer OTHER, MEDICAID, SELFPAY | PROVIDERS: PCP Family Medicine; Visit Provider Internal Medicine Gastroenterology ==

== ENCOUNTER 2024-03-04 09:15 | Day surgery (SDC) | payer OTHER, MEDICAID, SELFPAY ==
--- NOTE | 2024-03-03 11:56 | HO.ANESPROP2 ---
HPI - Anesthesia Eval Consult details Narrative: 29yo F for Upper Endoscopy with botox injections Last EGD 02/2023 with [facility] Mom is legal guardian Complicated medical hx. Follows: Cardiology - last seen 10/2023. HTN stable, MVP mild by echo, Palpitations resolved Neuro - Hyperreflexia, Migraines, Seizures (none in 2+ years), Chiari 1 malform s/p subocciptal decompression Renal - Membranous GN in remission. BP stable off meds. Creat normalized PMFSH Active Problems Active Problems: All Active Problems Dilated cbd, acquired (Acute) Eosinophilic esophagitis (Acute) Diarrhea (Acute) Past Medical History Medical History Chiari I malformation Graves disease Migraines Mary's thyroiditis ADRIANNA (obstructive sleep apnea) History of seizure Eosinophilic esophagitis Hx of mitral valve prolapse Glomerulonephritis GERD (gastroesophageal reflux disease) History of Chiari malformation FH: cholecystectomy Family History Family History Father HTN (hypertension) Maternal Aunt Thyroid cancer Heart attack Maternal Grandfather Diabetes Liver cyst HTN (hypertension) Family history of problems with anesthesia: No Surgical History Surgical History Hx of colonoscopy Hx of esophagogastroduodenoscopy Hx of abdominal surgery Hx of cholecystectomy History of Problems with Anesthesia: No Social History Social History Are you a primary care professional to a significant other at home: No Patient Tobacco Use Status: Never used Tobacco Meds Allergies Allergy/AdvReac Type Severity Reaction Status Date / Time rituximab [From Rituxan] Allergy Severe Anaphylaxis Verified 03/04/24 10:43 adhesive tape Allergy Intermediate Hives Verified 03/04/24 10:43 codeine Allergy Intermediate Hives Verified 03/04/24 10:43 Home Medications ?Medication ?Instructions ?Recorded ?Confirmed ?Last Taken ?Type fluticasone propionate 50 1 inh inhalation BID 05/30/21 03/04/24 Unknown History mcg/actuation blister powder for inhalation (Flovent Diskus) lidocaine 5 % topical patch 1 patch topical DAILY PRN Pain 05/30/21 03/04/24 Unknown History furosemide 20 mg tablet 20 mg PO QAM PRN swelling 11/15/21 03/04/24 Unknown History levothyroxine 300 mcg tablet 225 mcg PO DAILY 11/19/22 03/04/24 Unknown History cholecalciferol (vitamin D3) 1,250 1,250 mcg PO QWEEK 08/26/23 03/04/24 Unknown History mcg (50,000 unit) capsule Exam Narrative Narrative: EKG 04/2023 Ventricular Rate: 73 BPM Atrial Rate: 73 BPM P-R Interval: 192 ms QRS Duration: 82 ms Q-T Interval: 374 ms QTC Calculation(Bazett): 412 ms P Blandon: 54 degrees R Blandon: 65 degrees T Blandon: 66 degrees Normal sinus rhythm Normal ECG Confirmed by BEAN HERNANDEZ MD ([id number]) on 05/13/2023 8:54:26 PM Assessment and Plan Assessment Anesthesia Assessment: Chart Reviewed Final Anesthetic Review Family History of Problems with Anesthesia: No History of Problems with Anesthesia: No
[2024-03-04 10:44] LABS: UPreg QC Valid YES; Urine Pregnancy NEGATIVE (NEGATIVE)
[2024-03-04 10:51] VITALS: BP 125/94; PULSE 84; RESP 18; TEMP 36.2; O2SAT 99; BMI 28.7
--- NOTE | 2024-03-04 10:56 | MHC.SHP ---
Pre-Procedural Eval Section A - 24 Hr Update-Section A only Date of Service: 03/04/24 Section B - Complete if H&P > 30 days Chief Complaint: Eosinophilic esophagitis Relevant Family History (Specify if Yes): No Relevant Social History: None Present Medications: see Short Stay Collaborative assessment Medical History: Significant History (Chiari I malformation Graves disease Migraines Mary's thyroiditis ADRIANNA (obstructive sleep apnea) History of seizure Eosinophilic esophagitis Hx of mitral valve prolapse Glomerulonephritis GERD (gastroesophageal reflux disease) History of Chiari malformation FH: cholecystectomy) History of Previous Operations: Relevant previous surgery/procedure and date(s) (Hx of colonoscopy Hx of esophagogastroduodenoscopy Hx of abdominal surgery Hx of cholecystectomy) Allergies: Allergies Allergy/AdvReac Type Severity Reaction Status Date / Time rituximab [From Rituxan] Allergy Severe Anaphylaxis Verified 03/04/24 10:43 adhesive tape Allergy Intermediate Hives Verified 03/04/24 10:43 codeine Allergy Intermediate Hives Verified 03/04/24 10:43 Review of Systems Sugical H&P ROS: Negative: Constitution, Cardiovascular, Respiratory, Neurological, Psychiatric, Hem-Onc, Allergic/Immunologic, Gastrointestinal, Genitourinary, Musculoskeletal, Integumentary, Endocrine and Eyes/Ears/Nose/Throat Exam Surgical H&P Exam: Normal: HEENT, Normal: Heart, Normal: Lungs, Normal: Extremities, Normal: Abdomen, Normal: Skin and Normal: Neurological Plan Diagnosis/Plan: Unchanged I have reviewed the history and physical and performed a pertinent physical examination on my patient. No changes have occurred unless specified. gastroparesis with satiety and nausea, plan for pyloric dilation and botox also bx of esophagus Time Spent With Patient Time: Total time managing care of this patient today ____ minutes.
[2024-03-04 11:01] LABS: Hematocrit 34.7 % (37.0-47.0); Hemoglobin 12.2 g/dl (12.0-16.0); Mean Corpuscular HGB Conc 35.2 g/dl (31.0-35.0); Mean Corpuscular Volume 88.3 fL (80.0-98.0); Mean Platelet Volume 10.7 fL (9.4-12.3); Platelet Count 242 X10*3/uL (160-400); Red Blood Count 3.93 X10*6/uL (4.20-5.50); Red Cell Distribution Width 14.8 % (11.0-16.0); White Blood Count 7.3 X10*3/uL (4.8-10.8)
[2024-03-04] MEDS: Lactated Ringers 1,000 ML 100 ML IVCONT (11:07)
--- NOTE | 2024-03-04 11:16 | HO.ANESPROP2 ---
[facility] Active Problems Active Problems: All Active Problems Dilated cbd, acquired (Acute) Eosinophilic esophagitis (Acute) Diarrhea (Acute) Past Medical History Medical History Chiari I malformation Graves disease Migraines Mary's thyroiditis ADRIANNA (obstructive sleep apnea) History of seizure Eosinophilic esophagitis Hx of mitral valve prolapse Glomerulonephritis GERD (gastroesophageal reflux disease) History of Chiari malformation FH: cholecystectomy Functional capacity: independent ambulation Patient : No Family History Family History Father HTN (hypertension) Maternal Aunt Thyroid cancer Heart attack Maternal Grandfather Diabetes Liver cyst HTN (hypertension) Family history of problems with anesthesia: No Surgical History Surgical History Hx of colonoscopy Hx of esophagogastroduodenoscopy Hx of abdominal surgery Hx of cholecystectomy History of Problems with Anesthesia: No Social History Social History Are you a primary healthcare consultant to a significant other at home: No Patient Tobacco Use Status: Never used Tobacco Use of substances other than those prescribed or required for medical reasons: No Are you DNR?: No Advance Directives: No Advance Directives Information Provided: Yes Meds Allergies Allergy/AdvReac Type Severity Reaction Status Date / Time rituximab [From Rituxan] Allergy Severe Anaphylaxis Verified 03/04/24 10:43 adhesive tape Allergy Intermediate Hives Verified 03/04/24 10:43 codeine Allergy Intermediate Hives Verified 03/04/24 10:43 Active Medications: Current Medications Lactated Ringer's (Lr) 1,000 mls @ 100 mls/hr IVCONT .Q10H MARK Last Admin: 03/04/24 11:07 Dose: 100 mls/hr Home Medications ?Medication ?Instructions ?Recorded ?Confirmed ?Last Taken ?Type fluticasone propionate 50 1 inh inhalation BID 05/30/21 03/04/24 Unknown History mcg/actuation blister powder for inhalation (Flovent Diskus) lidocaine 5 % topical patch 1 patch topical DAILY PRN Pain 05/30/21 03/04/24 Unknown History furosemide 20 mg tablet 20 mg PO QAM PRN swelling 11/15/21 03/04/24 Unknown History levothyroxine 300 mcg tablet 225 mcg PO DAILY 11/19/22 03/04/24 Unknown History cholecalciferol (vitamin D3) 1,250 1,250 mcg PO QWEEK 08/26/23 03/04/24 Unknown History mcg (50,000 unit) capsule Exam Height,Weight and Vital Signs: Height 5 ft Weight 66.678 kg Last Vital Signs Temp 97.1 F 03/04/24 10:51 Pulse 84 03/04/24 10:51 Resp 18 03/04/24 10:51 BP 125/94 H 03/04/24 10:51 Pulse Ox 99 03/04/24 10:51 O2 Del Method Room Air 03/04/24 10:51 Pertinent Lab Results Pertinent Lab Results: Laboratory Tests 03/04/24 03/04/24 10:30 10:53 WBC 7.3 RBC 3.93 L Hgb 12.2 Hct 34.7 L MCV 88.3 MCH 31.0 MCHC 35.2 H RDW 14.8 Plt Count 242 MPV 10.7 Absolute Nucleated RBC 0.000 Nucleated RBC % (auto) 0.0 Urine Test NEGATIVE Airway Mallampati Class: IV TM Dist: >3cm Neck ROM: Full Heart: RRR Lungs: CTA Assessment and Plan Assessment Anesthesia Assessment: Anesthesia Plan Discussed Final Anesthetic Review Family History of Problems with Anesthesia: No History of Problems with Anesthesia: No NPO: Yes ASA Class: III Final Preanesthetic Review: Meds/Allgs Chart Reviewed and Anes Risks/Benef Reviewed Patient Risk: Intermediate Procedure Risk: Low Anesthetic Plan Anesthetic Plan: MAC: Disposition: Standard PACU
--- NOTE | 2024-03-04 11:23 | W.PM.OPN ---
Operative Note Operative Note Date of Service: 03/04/24 Narrative: Procedure Description: EGD Indication: nausea, esophagitis Anesthesia: MAC FLEXIBLE TRANSORAL UPPER GASTROINTESTINAL ENDOSCOPY UPPER ENDOSCOPY Consent: Indications for the procedure and potential complications of bleeding, perforation, reaction to medications and missed diagnosis were discussed with the patient and informed consent was obtained. Instrument: Olympus GIF H 190 J mid size upper endoscope Monitoring: Vital signs and clinical assessment, continuous EKG monitoring, Pulse oximetry, Carbon Dioxide monitoring and blood pressure monitoring were done throughout the procedure. Procedure: The patient was placed in the left lateral decubitis position and pre-procedure medications were administered and a bite block was placed. The endoscope was inserted into the mouth and advanced under direct vision to the third part of duodenum. A careful inspection was made as the upper endoscope was withdrawn including a retroflexed examination of the proximal stomach; Findings and interventions are described below. Findings: Larynx:normal Esophagus: GE junction at 35? cm, diaphragm hiatus at 35 cm, no varices or esophagitis, bx taken from? distal and proximal esophagus in separate jars. schatzki ring noted Stomach: Normal mucosa? Grade 2 flap valve on retroflexed examination of the cardia. The pylorus seemed tight so dilated with balloon to 19-20 mm. No tears seen -botox 100 units injected around pylorus Duodenum: mild bulbar duodenitis Intervention: Biopsies as noted above, balloon dilation Impression/Findings: schatzki ring mild duodenitis PLAN: cont PPI as is helping her ,
[2024-03-04 11:25] LABS: Anion Gap 8 (12-20); Blood Urea Nitrogen 8 mg/dL (9-16); Calcium 8.4 mg/dL (8.4-10.2); Carbon Dioxide 31 mmol/L (22-29); Chloride 105 mmol/L (96-108); Creatinine Clr Calc Pharmacy 99.1; Estimated Glomerular Filt Rate > 60; Glucose Fasting 112 mg/dL (60-99); Potassium 3.9 mmol/L (3.3-5.1); Sodium 140 mmol/L (135-145)
[2024-03-04 11:34] LABS: HCG Quantitative < 2 mIU/mL
[2024-03-04 12:02] VITALS: BP 126/87; PULSE 96; RESP 16; TEMP 36.6; O2SAT 95
[2024-03-04 12:18] VITALS: BP 136/90; PULSE 88; RESP 18; TEMP 36.1; O2SAT 100
== END 2024-03-04 12:50 | disposition home or self-care (01) ==
PROVIDERS: Anesthesiology; Nurse Practitioner; PCP Family Medicine; Visit Provider Internal Medicine Gastroenterology
PROC: 0DJ08ZZ Inspection of Upper Intestinal Tract, Via Natural or Artificial Opening Endoscopic (ICD-10-PCS; CPT 43235; principal; 2024-03-04 12:10)
DX: K20.0 Eosinophilic esophagitis (principal); R11.0 Nausea; K22.2 Esophageal obstruction; K44.9 Diaphragmatic hernia without obstruction or gangrene; K21.9 Gastro-esophageal reflux disease without esophagitis; K29.80 Duodenitis without bleeding; E73.9 Lactose intolerance, unspecified; E06.3 Autoimmune thyroiditis; N05.9 Unspecified nephritic syndrome with unspecified morphologic changes; G43.909 Migraine, unspecified, not intractable, without status migrainosus; E05.00 Thyrotoxicosis with diffuse goiter without thyrotoxic crisis or storm; G93.5 Compression of brain; Z86.69 Personal history of other diseases of the nervous system and sense organs; Z79.899 Other long term (current) drug therapy; G47.33 Obstructive sleep apnea (adult) (pediatric); Z88.5 Allergy status to narcotic agent; Z88.8 Allergy status to other drugs, medicaments and biological substances; L23.1 Allergic contact dermatitis due to adhesives; Z90.49 Acquired absence of other specified parts of digestive tract; Z98.890 Other specified postprocedural states
CPT/HCPCS: 43245; 43239; 43236; 36415; 80048; 81025; 84702; 85027; 88305; C1726; J0585; J2704

== ENCOUNTER → 2024-03-04 09:15 | Outpatient (BNV) | payer OTHER, MEDICAID, SELFPAY | PROVIDERS: PCP Family Medicine; Visit Provider Internal Medicine Gastroenterology | DX: R11.0 Nausea (principal); K20.90 Esophagitis, unspecified without bleeding; K22.2 Esophageal obstruction; K31.1 Adult hypertrophic pyloric stenosis; K29.80 Duodenitis without bleeding | CPT/HCPCS: 43236; 43239; 43245 ==

== ENCOUNTER 2024-04-17 10:48 | Outpatient (AMB) | payer OTHER, MEDICAID, SELFPAY ==
--- NOTE | 2024-04-17 10:49 | A.OFFVIS_ITS ---
Vital Signs 04/17/24 10:50 Height 5 ft Weight 147 lb 11.355 oz BMI 28.8 BP 122/80 Blood Pressure Location Lt brachial Position Sitting Pulse 93 Intake Visit Reasons: f/u egd Intake Note: Gretchen presents in the office as a follow up EGD. CC: States that she is not having any concerns since her procedure - today she is having some pains in the stomach. She is not having any irregular bowel movements. LUQ pains. Director Financial Services Required: No Allergies rituximab [From Rituxan] Allergy (Severe, Verified 04/17/24 10:52) Anaphylaxis adhesive tape Allergy (Intermediate, Verified 04/17/24 10:52) Hives codeine Allergy (Intermediate, Verified 04/17/24 10:52) Hives HPI HPI f/u egd: Details: 29 yr old f w hx of cholecystectomy, EoE seen for f/u RECAP: She was c/o food sticking in her stomach she was vomiting every few days with formed food not c/o abdominal pain denies constipation or diarrhea, going to bathroom every day she is not taking cyprohepatadine she only takes zofran ODT and it doesn help much not tried PPI for years she had been on steroids for 6 months for glomerulonephritis, got rituximab appetite is fair throat gould loly when drinking. she had been prescribed solutab she was having further dysphagia so EGD was repeated with dilation 11/[address] scan at [facility] due to burning thigh pain thought to be due to nerve irritation --slightly dilated CBD was noted she never felt a difference with budesonide slurry, PPI worked way better TESTS: c diff negative TSH is v high, on replacement now stool giardia neg fecal calprotectin neg fecal fat-- neg ENDOSCOPIES: EGD/Colonoscopy: Endoscopy Findings: mild duodenitis Colonoscopy Findings: internal hemorrhoids PATH: active esophagitis --GERD vs EoE > 50 eos seen EGD: 04/2022- numerous eosinophils distal and proximal in esophagus, some retained food dilated pylorus with 18 mm EGD 10/2022-- ongoing eosinophilic esophagitis and eosinophils at [facility], dilation done EGD: 03/04/24, pyloric dialtion, botox, path--numerous eosinophils IMAGING: GES: 01/2022--- pos 26% at 4 hrs INTERIM: she feels well apart from some focal pain from trigger point injection good appetite not got the dupiexent yet cont with PPI EXAM: GENERAL: The patient is well developed and nontoxic. VITAL SIGNS:see workflow HEENT: Nonicteric sclerae, PERRLA, EOMI. Oropharynx clear. Moist mucous membranes. Conjunctivae appear well perfused. No thyroid mass. CHEST: Chest wall is nontender. HEART: Regular rate and rhythm without murmurs. LUNGS: Clear to auscultation bilaterally. ABDOMEN: Soft, positive bowel sounds, mild focal tenderness at recent inj site, no organomegaly.no flank tenderness SKIN: No rash, no excessive bruising, petechiae, or purpura. NEUROLOGIC: Cranial nerves II-XII intact without motor/sensory deficit. Psych: normal affect Assessments 1. Chronic GERD vs EOe or combination of both, on rabeprazole with good effect but high eos on path 2. dysphagia related to 1/ above--controlled 3. lactose intolerance PLAN: 1/ cont rabeprazole 20 mg 2/ commence dupixent once gets and repeat EGD maybe 6 months or so PFSH Medical History Chiari I malformation Graves disease Migraines Mary's thyroiditis ADRIANNA (obstructive sleep apnea) History of seizure Eosinophilic esophagitis Hx of mitral valve prolapse Glomerulonephritis GERD (gastroesophageal reflux disease) History of Chiari malformation FH: cholecystectomy Surgical History Hx of colonoscopy Hx of esophagogastroduodenoscopy Hx of abdominal surgery Hx of cholecystectomy Family History Father HTN (hypertension) Maternal Aunt Thyroid cancer Heart attack Maternal Grandfather Diabetes Liver cyst HTN (hypertension) Social History Are you a primary certified caregiver to a significant other at home: No Patient Tobacco Use Status: Never used Tobacco Physical Exam Vital Signs: Last Vital Signs Pulse 93 04/17/24 10:50 BP 122/80 04/17/24 10:50 BMI result Body Mass Index 28.8 Assessment & Plan Assessment & Plan (1) Eosinophilic esophagitis: Code(s): K20.0 - Eosinophilic esophagitis Category: Medical Plan: see above Coding Level of Care Code Est Pt Level 3 (54899) Diagnoses Eosinophilic esophagitis K20.0
[2024-04-17 10:50] VITALS: BP 122/80; PULSE 93; BMI 28.8
== END 2024-04-17 11:10 | disposition home or self-care (01) ==
PROVIDERS: PCP Family Medicine; Visit Provider Internal Medicine Gastroenterology
DX: K20.0 Eosinophilic esophagitis (principal)
CPT/HCPCS: 99213

== ENCOUNTER → 2024-04-17 10:48 | Outpatient (BNVA) | payer OTHER, MEDICAID, SELFPAY | PROVIDERS: PCP Family Medicine; Visit Provider Internal Medicine Gastroenterology ==

== ENCOUNTER 2024-05-20 07:25 | Outpatient (RCR) | payer OTHER, MEDICAID, SELFPAY ==
--- OUTSIDE RECORDS SUMMARY | 2024-05-20 07:27 | XMS_ITS | Continuity of Care Document ---
Author Organization [facility] Address [address] [place] [address]- Care Team Providers Care Strong Nitric Operator Name Role Phone Karthik HENLEY, Isaiah Douglas Primary Care Physician [phone] Encounter [facility] [place] Date(s): 08/04/23 - 09/03/23 [facility] [address] [place] [address] Allergies, Adverse Reactions, Alerts Substance Reaction Severity Status codeine 1 Surgical adhesive ta pe itching Active Adhesive Bandage 2 Rash Active riTUXimab 3 Severe Active 1hives 2surgical tape allergy as per family 3developed anaphylaxis with throat closure sensation and facial swelling needed brief epinephrine drip Immunizations Given and Recorded Vaccine Date Status Refusal Reason influenza virus vaccine, inactivated 05/16/23 Give n influenza virus vaccine, inactivated 1 06/03/22 Re corded influenza virus vaccine, inactivated 05/16/20 Fareed rded influenza virus vaccine, inactivated 2 05/20/19 Gi libby influenza virus vaccine, inactivated 3 07/06/18 Re corded influenza virus vaccine, inactivated 09/14/17 Fareed rded influenza virus vaccine, inactivated 09/02/17 Fareed rded influenza virus vaccine, inactivated 4 07/03/16 Re corded influenza virus vaccine, inactivated 5 06/15/14 Re corded influenza virus vaccine, inactivated 6 06/11/13 Re corded influenza virus vaccine, inactivated 7 06/25/12 Re corded influenza virus vaccine, inactivated 8 07/05/11 Re corded influenza virus vaccine, inactivated 9 07/06/10 Re corded tetanus-diphtheria toxoids (Td) 10 08/15/22 Given [id number] bivalent booster vax 07/05/22 Recorded SARS-CoV-2 (COVID-19) mRNA-1273 vaccine 07/12/21 R ecorded SARS-CoV-2 (COVID-19) mRNA BNT-162b2 vac 12/18/20 Recorded SARS-CoV-2 (COVID-19) mRNA BNT-162b2 vac 11/27/20 Recorded Meningococcal Conjugate Vaccine 11 01/25/14 Record ed Human Papillomavirus Vaccine 12 01/25/14 Recorded Human Papillomavirus Vaccine 13 12/29/12 Recorded tetanus/diphtheria/pertussis, acel(Tdap) 14 11/10/08 Recorded Varicella Virus Vaccine 15 11/10/08 Recorded Varicella Virus Vaccine 16 02/16/97 Recorded Poliovirus Vaccine, Inactivated 17 04/25/01 Record ed Poliovirus Vaccine, Inactivated 18 04/25/01 Record ed Poliovirus Vaccine, Inactivated 19 10/11/97 Record ed Poliovirus Vaccine, Inactivated 20 96 Record ed Poliovirus Vaccine, Inactivated 21 96 Record ed diphtheria/tetanus/pertussis, acel(DTaP) 22 04/25/01 Recorded diphtheria/tetanus/pertussis, acel(DTaP) 23 10/11/97 Recorded diphtheria/tetanus/pertussis, acel(DTaP) 24 96 Recorded diphtheria/tetanus/pertussis, acel(DTaP) 25 96 Recorded diphtheria/tetanus/pertussis, acel(DTaP) 26 96 Recorded diphtheria/tetanus/pertussis, acel(DTaP) 27 96 Recorded Measles/Mumps/Rubella Virus Vaccine 28 06/16/97 Re corded Haemophilus B-Hepatitis B Vaccine 29 06/16/97 Fareed rded Haemophilus B-Hepatitis B Vaccine 30 96 Fareed rded Haemophilus B-Hepatitis B Vaccine 31 96 Fareed rded Haemophilus B-Hepatitis B Vaccine 32 96 Fareed rded hepatitis B pediatric vaccine 33 96 Recorded hepatitis B pediatric vaccine 34 96 Recorded hepatitis B pediatric vaccine 35 96 Recorded 1Result Comment: [facility] at [facility] [place] 2Result Comment: [facility]-[id number] 3Location History: [facility] [place] 4Result Comment: [11/26/2016] [facility] 5Result Comment: [11/26/2016] [facility] 6Result Comment: [11/26/2016] [facility] 7Result Comment: [11/26/2016] [facility] 8Result Comment: [11/26/2016] [facility] 9Result Comment: [11/26/2016] [facility] 10Result Comment: [id number] 11Result Comment: [11/26/2016] [facility] 12Result Comment: [11/26/2016] [facility] 13Result Comment: [11/26/2016] [facility] 14Result Comment: [11/26/2016] [facility] 15Result Comment: [11/26/2016] [facility] 16Result Comment: [11/26/2016] [facility] 17Result Comment: [11/26/2016] [facility] 18Result Comment: [11/26/2016] [facility] 19Result Comment: [11/26/2016] [facility] 20Result Comment: [11/26/2016] [facility] 21Result Comment: [11/26/2016] [facility] 22Result Comment: [11/26/2016] [facility] 23Result Comment: [11/26/2016] [facility] 24Result Comment: [11/26/2016] [facility] 25Result Comment: [11/26/2016] [facility] 26Result Comment: [11/26/2016] [facility] 27Result Comment: [11/26/2016] [facility] 28Result Comment: [11/26/2016] [facility] 29Result Comment: [11/26/2016] [facility] 30Result Comment: [11/26/2016] [facility] 31Result Comment: [11/26/2016] [facility] 32Result Comment: [11/26/2016] [facility] 33Result Comment: [11/26/2016] [facility] 34Result Comment: [11/26/2016] [facility] 35Result Comment: [11/26/2016] [facility] Medications Flovent 110 mcg Inhaler HFA 1, puffs, Inhalation, 2 times a day, PRN, throat tightness, Refills 0, Maintenance, 04/05/22 17:19:00 EDT, Inhaler Start Date: 04/05/22 Status: Ordered furosemide 20 mg oral tablet 20 mg, 1, tablet, By Mouth, Daily, PRN, for leg swelling, # 30 tablet, Refills 0, Maintenance, Other, 04/05/22 17:19:00 EDT, Partial fill upon patient request if the prescription is for a schedule IIopioid drug. Start Date: 04/05/22 Status: Ordered levothyroxine 0.025 mg oral tablet 1 tablet = 25 mcg, By Mouth, Daily, Take one tab of 25 mcg plus 200 mcg (2 x 100 mcg tabs) for a total of 225 mcg daily; avoid antacids, calcium, or iron for at least 4 hrs before or 4 hrs after, # 30 tablet, 0 Refills, Maintenance, 09/03/23 12:38:00... Start Date: 09/03/23 Stop Date: 10/03/23 Status: Ordered levothyroxine 0.1 mg oral tablet 2 tablet = 200 mcg, By Mouth, Daily, Take 200 mcg (2 x 100 mcg tabs) plus 25mcg tab for a total of 225 mcg daily; avoid antacids, calcium, or iron for at least 4 hrs before or 4 hrs after, # 60 tablet, 0 Refills, Maintenance, 09/03/23 12:38:00 EST, T... Start Date: 09/03/23 Stop Date: 10/03/23 Status: Ordered lidocaine 4% topical film 1 patch, Topically, 2 times a day, # 6 each, 0 Refills, Maintenance, 09/02/20 7:04:00 EST, Film, Partial fill upon patient request if the prescription is for a schedule II opioid drug. Start Date: 09/02/20 Status: Ordered Lorazepam = 0.5 mg, PRN as needed for anxiety, 0 Refills, Maintenance, 04/05/22 17:20:00 EDT, Partial fill upon patient request if the prescription is for a schedule II opioid drug. Start Date: 04/05/22 Status: Ordered Nurtec ODT 75 mg oral tablet, disintegrating PLACE ONE TABLET BY MOUTH EVERY OTHER DAY Start Date: 04/05/22 Status: Ordered RABEprazole 20 mg oral delayed release tablet 1 tablet = 20 mg, By Mouth, Daily, 0 Refills, Maintenance, 05/16/23 15:08:00 EDT, Partial fill uponpatient request if the prescription is for a schedule II opioid drug. Start Date: 05/16/23 Status: Ordered Vitamin D3 50,000 intl units oral capsule 1 capsule = 1,250 mcg, By Mouth, Every week, when finished please resume 2000 IUs daily, # 8 capsule, 0 Refills, Maintenance, 04/30/23 9:03:00 EDT, Capsule, [facility], Partial fill upon patient request if the prescription is for a sche... Start Date: 04/30/23 Stop Date: 06/25/23 Status: Ordered Problem List Condition Confirmation Course Effective Dates Status Health Status Informant Chiari malformation type I Confirmed Active Developmental delay Confirmed Stable Active Dysmorphic features Confirmed Stable Active EE (eosinophilic esophagitis) Confirmed Active Essential hypertension Confirmed Active Exposure to COVID-19 virus Confirmed Active Genetic disorder Confirmed Active Hypothyroidism Confirmed Active Hypothyroidism Confirmed Active LLQ abdominal pain Confirmed Active Membranous glomerulonephritis Confirmed Active Migraine Confirmed Active Mitral valve anterior leaflet prolapse Confirmed Stable Active Mitral valve prolapse Confirmed Active Nephrotic syndrome Confirmed Active NAFL (nonalcoholic fatty liver) Confirmed Active Noncompliance with medications Confirmed Active Obese class I Confirmed Active Obstructive sleep apnea Confirmed Active Omental infarction Confirmed Active Orthostatic proteinuria Confirmed Active Osteoporosis Confirmed Active Postablative hypothyroidism Confirmed Active Proteinuria Confirmed Active Syringomyelia and syringobulbia 1 Confirmed Active Vitamin D deficiency Confirmed Active 1Thoracic Social History Social History Type Response Smoking Status Never smoker entered on: 10/24/17 Sex Patient Care team information Care Team Personnel Name: Live Leyva MD Position: [facility] Physician -Physician Practices Member Role: Lifetime Consulting Physician Name: Jeanmarie Lopez MD Position: [facility] Renal MD Member Role: Lifetime Consulting Physician Address: Address: [address] [place] [address] [address] [place] [address]- Name: Lashonda Clifford Position: [facility] Outreach Member Role: Lifetime Consulting Physician Name: Tiera Wadsworth RN Position: [facility] RN Member Role: Primary Care Nurse Name: Isaiah Angeles MD Position: [facility] Physician - Primary Care Member Role: PCP Address: Address: [address] [place] [address]- [place] Name: Annalise Lara RN Position: S RN Member Role: Primary Care Nurse Name: Mark Wilkes MD Position: [facility] Renal MD Member Role: Lifetime Consulting Physician Address: Address: [address] [place] [address] [facility] [place] [address]- Name: Bibiana Treviño RN Position: S RN Member Role: Primary Care Nurse Care Team Related Persons Name: MIRA MILLER Address: home [address] [id number] Name: MIRA MILLER Address: [place] Address: [address] [place] [address] Name: PRATEEK MILLER Address: home [address] [place] [address] Name: BELEN MILLER Address: home [address] [place] [address] Name: BELEN MILLER Address: [address] [place] [address]
--- OUTSIDE RECORDS SUMMARY | 2024-05-20 07:28 | XMS_ITS | Continuity of Care Document ---
Author Organization [facility] Ethan lt Address [address] [place] [address]- Care Team Providers Care Architectural Drafter Name Role Phone Karthik HENLEY, Isaiah Douglas Primary Care Physician Encounter [facility] [place] Date(s): 12/07/22 - 01/06/23 [facility] Adult [address] [place] [address]- Allergies, Adverse Reactions, Alerts Substance Reaction Severity Status codeine 1 Surgical adhesive ta pe itching Active Adhesive Bandage 2 Rash Active riTUXimab 3 Severe Active 1hives 2surgical tape allergy as per family 3developed anaphylaxis with throat closure sensation and facial swelling needed brief epinephrine drip Immunizations Given and Recorded Vaccine Date Status Refusal Reason tetanus-diphtheria toxoids (Td) 1 08/15/22 Given [id number] bivalent booster vax 07/05/22 Recorded influenza virus vaccine, inactivated 2 06/03/22 Re corded influenza virus vaccine, inactivated 05/16/20 Fareed rded influenza virus vaccine, inactivated 3 05/20/19 Gi libby influenza virus vaccine, inactivated 4 07/06/18 Re corded influenza virus vaccine, inactivated 09/14/17 Fareed rded influenza virus vaccine, inactivated 09/02/17 Fareed rded influenza virus vaccine, inactivated 5 07/03/16 Re corded influenza virus vaccine, inactivated 6 06/15/14 Re corded influenza virus vaccine, inactivated 7 06/11/13 Re corded influenza virus vaccine, inactivated 8 06/25/12 Re corded influenza virus vaccine, inactivated 9 07/05/11 Re corded influenza virus vaccine, inactivated 10 07/06/10 R ecorded SARS-CoV-2 (COVID-19) mRNA-1273 vaccine 07/12/21 R ecorded [...] hepatitis B pediatric vaccine 35 96 Recorded Not Given Vaccine Date Status Refusal Reason pneumococcal 23-valent vaccine 04/26/19 Not Given Parent Or Guardian Refuses 1Result Comment: [id number] 2Result Comment: [facility] [place] 3Result Comment: [facility]-[id number] 4Location History: [facility] [place] 5Result Comment: [11/26/2016] [facility] 6Result Comment: [11/26/2016] [facility] 7Result Comment: [11/26/2016] [facility] 8Result Comment: [11/26/2016] [facility] 9Result Comment: [11/26/2016] [facility] 10Result Comment: [11/26/2016] [facility] 11Result Comment: [11/26/2016] [facility] 12Result Comment: [11/26/2016] [facility] 13Result Comment: [11/26/2016] [facility] 14Result Comment: [11/26/2016] [facility] 15Result Comment: [11/26/2016] [facility] 16Result Comment: [11/26/2016] [facility] 17Result Comment: [11/26/2016] [facility] 18Result Comment: [11/26/2016] [facility] 19Result Comment: [11/26/2016] [facility] 20Result Comment: [11/26/2016] [facility] 21Result Comment: [11/26/2016] [facility] 22Result Comment: [11/26/2016] [facility] 23Result Comment: [11/26/2016] [facility] 24Result Comment: [11/26/2016] [facility] 25Result Comment: [11/26/2016] [facility] 26Result Comment: [11/26/2016] [facility] 27Result Comment: [11/26/2016] [facility] 28Result Comment: [11/26/2016] [facility] 29Result Comment: [11/26/2016] [facility] 30Result Comment: [11/26/2016] [facility] 31Result Comment: [11/26/2016] [facility] 32Result Comment: [11/26/2016] [facility] 33Result Comment: [11/26/2016] [facility] 34Result Comment: [11/26/2016] [facility] 35Result Comment: [11/26/2016] [facility] Medications cholecalciferol 50 mcg (2000 intl units) oral tablet, chewable 2 tablets, By Mouth, Daily, # 60 tablet, 7 Refills, Maintenance, 09/26/22 11:31:00 EST, [facility], Partial fill upon patient request if the prescription is for a schedule II opioid drug., 153, cm, 08/28/22 13:31:00 EST, Height, 60.8, k... Start Date: 09/26/22 Stop Date: 05/24/23 Status: Ordered dextromethorphan-guaifenesin 10 mg-100 mg/5 mL oral liquid 10 mL, By Mouth, Every 4 hours, PRN for cough, # 240 mL, 0 Refills, Maintenance, 08/28/22 13:27:00 EST, Liquid, [facility], Partial fill upon patient request if the prescription isfor a schedule II opioid drug., 10 mL By Mouth Every 4... Start Date: 08/28/22 Status: Ordered Flovent 110 mcg Inhaler HFA 1, puffs, [...] drug. Start Date: 04/05/22 Status: Ordered levothyroxine 0.112 mg oral tablet 2 tablet = 224 mcg, By Mouth, Daily, Dose increased due to significant fluctuation in thyroid levels. Please repeat labs in 2 weeks., # 60 tablet, 3 Refills, Maintenance, 10/20/22 7:30:00 EST, Tablet, [facility], Partial fill upon patie... Start Date: 10/20/22 Status: Ordered lidocaine 4% topical film 1 patch, Topically, 2 times a day, # 6 each, 0 Refills, Maintenance, 09/02/20 7:04:00 EST, Film, Partial fill upon patient request if the prescription is for a schedule II opioid drug. Start Date: 09/02/20 Status: Ordered Lorazepam PRN as needed for anxiety, 0 Refills, Maintenance, 04/05/22 17:20:00 EDT, Partial fill upon patientrequest if the prescription is for a schedule II opioid drug. Start Date: 04/05/22 Status: Ordered LORazepam 1 mg oral tablet See Instructions, 1 tablet By Mouth 1 hour prior to procedure, # 2 tablet, 0 Refills, Acute 01/14/23 3:52:00 EDT, 01/07/23 3:51:00 EDT, [facility], Partial fill upon patient request if the prescription is for a schedule II opioid drug.,... Start Date: 01/07/23 Stop Date: 01/14/23 Status: Ordered Nurtec ODT 75 mg oral tablet, disintegrating PLACE ONE TABLET BY MOUTH EVERY OTHER DAY Start Date: 04/05/22 Status: Ordered pantoprazole 40 mg oral delayed release tablet 1 tablet = 40 mg, By Mouth, Daily, # 30 tablet, 0 Refills, Maintenance, 04/05/22 17:18:00 EDT, EC Tablet Start Date: 04/05/22 Status: Ordered Problem List Condition Confirmation Course [...] Care team information Care Team Personnel Name: Margaux Vivas RN Position: [facility] RN Member Role: Primary Care Nurse Name: Live Leyva MD Position: [facility] Physician -Physician Practices Member Role: Lifetime Consulting Physician Name: Jeanmarie Lopez MD Position: [facility] Renal MD Member Role: Lifetime Consulting Physician Address: Address: [address] [place] [address], [address] [facility] [place] [address]- [place] Name: Lashonda Clifford Position: [facility] Outreach Member Role: Lifetime Consulting Physician Name: Tiera Wadsworth RN Position: [facility] RN Member Role: Primary Care Nurse Name: Isaiah Angeles MD Position: [facility] Primary Care Physician Member Role: PCP Address: Address: [address] [place] [address]- [place] Name: Annalise Lara RN Position: [facility] RN Member Role: Primary Care Nurse Name: Mark Wilkes MD Position: [facility] Renal MD Member Role: Lifetime Consulting Physician Address: Address: [address] [facility] [place] [address]- [place] Name: Bibiana Treviño RN Position: [facility] RN Member Role: Primary Care Nurse Care Team Related Persons Name: MIRA MILLER Address: [address] [phone] Name: MIRA MILLER Address: [address] [phone] Name: MRIA MILLER Address: [address] [phone] Name: MIRA MILLER Address: [address] [phone] Name: MIRA MILLER Address: [address] [phone] Name: MIRA MILLER Address: [address] [phone] Name: MIRA MILELR Address: [address] [id number] Name: PRATEEK MILLER Address: [address] [address] Name: BELEN MILLER Address: [address] [place] [address] Name: BELEN MILLER Address: [address] [address]
--- OUTSIDE RECORDS SUMMARY | 2024-05-20 07:28 | XMS_ITS | Continuity of Care Document ---
Author Organization [facility] Ethan lt Address [address] [place] [address]- Care Team Providers Care Soda Dialyzer Name Role Phone Karthik HENLEY, Isaiah Douglas Primary Care Physician [phone] Encounter [facility] [place] Date(s): 10/19/22 - 11/18/22 [facility] Adult [address] [place] [address]- Allergies, Adverse Reactions, Alerts Substance Reaction Severity Status codeine 1 Surgical adhesive ta pe itching Active Adhesive Bandage 2 Rash Active riTUXimab 3 Severe Active 1hives 2surgical tape allergy as per family 3developed anaphylaxis with throat closure sensation and facial swelling needed brief epinephrine drip Immunizations Given and Recorded Vaccine Date Status Refusal Reason tetanus-diphtheria toxoids (Td) 1 08/15/22 Given [id number] bivalent booster vax 07/05/22 Recorded influenza virus [...] 07/05/11 Re corded influenza virus vaccine, inactivated 07/06/10 R ecorded SARS-CoV-2 (COVID-19) mRNA-1273 vaccine [...] Given Parent Or Guardian Refuses 1Result Comment: [id number] 2Result Comment: [facility] [place] 3Result Comment: [id number] 4Location History: [facility] [place] 5Result Comment: [11/26/2016] [facility] 6Result Comment: [11/26/2016] [facility] 7Result Comment: [11/26/2016] [facility] 8Result Comment: [11/26/2016] [facility] 9Result Comment: [11/26/2016] [facility] 10Result Comment: [11/26/2016] [facility] 11Result Comment: [11/26/2016] [facility] 12Result Comment: [11/26/2016] [facility] 13Result Comment: [11/26/2016] [facility] 14Result Comment: [11/26/2016] [facility] 15Result Comment: [11/26/2016] [facility] 16Result Comment: [11/26/2016] [facility] 17Result Comment: [11/26/2016] [facility] 18Result Comment: [11/26/2016] [facility] 19Result Comment: [11/26/2016] [facility] 20Result Comment: [11/26/2016] [facility] 21Result Comment: [11/26/2016] [facility] 22Result Comment: [11/26/2016] [facility] 23Result Comment: [11/26/2016] [facility] 24Result Comment: [11/26/2016] [facility] 25Result Comment: [11/26/2016] [facility] 26Result Comment: [11/26/2016] [facility] 27Result Comment: [11/26/2016] [facility] 28Result Comment: [11/26/2016] [facility] 29Result Comment: [11/26/2016] [facility] 30Result Comment: [11/26/2016] [facility] 31Result Comment: [11/26/2016] [facility] 32Result Comment: [11/26/2016] [facility] 33Result Comment: [11/26/2016] [facility] 34Result Comment: [11/26/2016] [facility] 35Result Comment: [11/26/2016] [facility] Medications cholecalciferol 50 mcg (2000 intl [...] drug. Start Date: 04/05/22 Status: Ordered LORazepam 0.5 mg oral tablet See Instructions, 1 tablet By Mouth 1 hour prior to procedure., # 1 tablet, 0 Refills, Acute 12/03/22 16:35:00 EDT, 11/02/22 16:34:00 EDT, [facility], Partial fill upon patient request if the prescription is for a schedule II opioid christopher... Start Date: 11/02/22 Stop Date: 12/03/22 Status: Ordered Nurtec ODT 75 mg oral [...] Team Personnel Name: Margaux Vivas RN Position: [facility] RN Member Role: Primary Care Nurse Name: Live Leyva MD Position: [facility] Physician -Physician Practices Member Role: Lifetime Consulting Physician Name: Jeanmarie Lopez MD Position: [facility] Renal MD Member Role: Lifetime Consulting Physician Address: Address: [address] [place] [address], [address] [facility] [place] [address]- [place] Name: Lashonda Clifford Position: [facility] Outreach Member Role: Lifetime Consulting Physician Name: Tiera Wadsworth RN Position: [facility] RN Member Role: Primary Care Nurse Name: Isaiah Angeles MD Position: [facility] Primary Care Physician Member Role: PCP Address: Address: [address] [place] [address]- [place] Name: Annalise Lara RN Position: [facility] RN Member Role: Primary Care Nurse Name: Mark Wilkes MD Position: [facility] Renal MD Member Role: Lifetime Consulting Physician Address: Address: [address] [facility] [place] [address]- [place] Name: Bibiana Treviño RN Position: [facility] RN Member Role: Primary Care Nurse Care Team Related Persons Name: MIRA MILLER Address: [address] [phone] Name: AKASHMIRA CARTY Address: [address] [phone] Name: AKASHMIRA CARTY Address: [address] [phone] Name: AKASHCLAUDETTE CARTYE Address: [address] [phone] Name: MIRA MILLER Address: [address] [phone] Name: AKASHRICARDOJANETHCLAUDETTEE Address: [address] [phone] Name: AKASHMIRA CARTY Address: [address] [phone] Name: PRATEEK MILLER Address: [address] [address] Name: BELEN MILLER Address: [address] [address] Name: BELEN MILLER Address: [address] [address]
--- OUTSIDE RECORDS SUMMARY | 2024-05-20 07:28 | XMS_ITS | Continuity of Care Document ---
Author Organization [facility] Ethan lt Address [address] [place] [address]- Care Team Providers Care Clinical Lab Scientist Name Role Phone Karthik HENLEY, Isaiah Douglas Primary Care Physician [phone] Encounter [facility] Date(s): 04/03/21 - 05/03/21 [facility] Adult [address] [place] [address]- Allergies, Adverse Reactions, Alerts Substance Reaction Severity Status codeine itching Active Adhesive Bandage Rash Active Immunizations Given and Recorded Vaccine Date Status Refusal Reason SARS-CoV-2 (COVID-19) mRNA BNT-162b2 vac 12/18/20 Recorded SARS-CoV-2 (COVID-19) mRNA BNT-162b2 vac 11/27/20 Recorded influenza virus vaccine, inactivated 1 05/20/19 Gi libby influenza virus vaccine, inactivated 2 07/06/18 Re corded influenza virus vaccine, inactivated 09/02/17 Fareed rded influenza virus vaccine, inactivated 3 07/03/16 Re corded influenza virus vaccine, inactivated 4 06/15/14 Re corded influenza virus vaccine, inactivated 5 06/11/13 Re corded influenza virus vaccine, inactivated 6 06/25/12 Re corded influenza virus vaccine, inactivated 7 07/05/11 Re corded influenza virus vaccine, inactivated 8 07/06/10 Re corded Meningococcal Conjugate Vaccine 9 01/25/14 Recorde d Human Papillomavirus Vaccine 10 01/25/14 Recorded Human Papillomavirus Vaccine 11 12/29/12 Recorded tetanus/diphtheria/pertussis, acel(Tdap) 12 11/10/08 Recorded Varicella Virus Vaccine 13 11/10/08 Recorded Varicella Virus Vaccine 14 02/16/97 Recorded Poliovirus Vaccine, Inactivated 15 04/25/01 Record ed Poliovirus Vaccine, Inactivated 16 04/25/01 Record ed Poliovirus Vaccine, Inactivated 17 10/11/97 Record ed Poliovirus Vaccine, Inactivated 18 96 Record ed Poliovirus Vaccine, Inactivated 19 96 Record ed diphtheria/tetanus/pertussis, acel(DTaP) 20 04/25/01 Recorded diphtheria/tetanus/pertussis, acel(DTaP) 21 10/11/97 Recorded diphtheria/tetanus/pertussis, acel(DTaP) 22 96 Recorded diphtheria/tetanus/pertussis, acel(DTaP) 23 96 Recorded diphtheria/tetanus/pertussis, acel(DTaP) 24 96 Recorded diphtheria/tetanus/pertussis, acel(DTaP) 25 96 Recorded Measles/Mumps/Rubella Virus Vaccine 26 06/16/97 Re corded Haemophilus B-Hepatitis B Vaccine 27 06/16/97 Fareed rded Haemophilus B-Hepatitis B Vaccine 28 96 Fareed rded Haemophilus B-Hepatitis B Vaccine 29 96 Fareed rded Haemophilus B-Hepatitis B Vaccine 30 96 Fareed rded hepatitis B pediatric vaccine 31 96 Recorded hepatitis B pediatric vaccine 32 96 Recorded hepatitis B pediatric vaccine 33 96 Recorded Not Given Vaccine Date Status Refusal Reason pneumococcal 23-valent vaccine 04/26/19 Not Given Parent Or Guardian Refuses 1Result Comment: [id number] 2Location History: [facility] [place] 3Result Comment: [11/26/2016] [facility] 4Result Comment: [11/26/2016] [facility] 5Result Comment: [11/26/2016] [facility] 6Result Comment: [11/26/2016] [facility] 7Result Comment: [11/26/2016] [facility] 8Result Comment: [11/26/2016] [facility] 9Result Comment: [11/26/2016] [facility] 10Result Comment: [11/26/2016] [facility] 11Result Comment: [11/26/2016] [facility] 12Result Comment: [11/26/2016] [facility] 13Result Comment: [11/26/2016] [facility] 14Result Comment: [11/26/2016] [facility] 15Result Comment: [11/26/2016] [facility] 16Result Comment: [11/26/2016] [facility] 17Result Comment: [11/26/2016] [facility] 18Result Comment: [11/26/2016] [facility] 19Result Comment: [11/26/2016] [facility] 20Result Comment: [11/26/2016] [facility] 21Result Comment: [11/26/2016] [facility] 22Result Comment: [11/26/2016] [facility] 23Result Comment: [11/26/2016] [facility] 24Result Comment: [11/26/2016] [facility] 25Result Comment: [11/26/2016] [facility] 26Result Comment: [11/26/2016] [facility] 27Result Comment: [11/26/2016] [facility] 28Result Comment: [11/26/2016] [facility] 29Result Comment: [11/26/2016] [facility] 30Result Comment: [11/26/2016] [facility] 31Result Comment: [11/26/2016] [facility] 32Result Comment: [11/26/2016] [facility] 33Result Comment: [11/26/2016] [facility] Medications levothyroxine 125 mcg (0.125 mg) oral capsule 1 capsule = 125 mcg, By Mouth, Daily, 1 capsule 5 days a week, # 30 capsule, 0 Refills, Maintenance, 02/03/21 9:31:00 EDT, Capsule, Partial fill upon patient request if the prescription is for a schedule II opioid drug. Start Date: 02/03/21 Status: Ordered lidocaine 4% topical film 1 patch, Topically, 2 times a day, # 6 each, 0 Refills, Maintenance, 09/02/20 7:04:00 EST, Film, Partial fill upon patient request if the prescription is for a schedule II opioid drug. Start Date: 09/02/20 Status: Ordered lisinopril 5 mg oral tablet 5 mg, 1, tablet, By Mouth, Daily, # 30 tablet, Refills 0, Tot. Refills 0, Maintenance, 02/03/21 10:00:00 EDT, Do Not Route, Partial fill upon patient request if the prescription is for a schedule II opioid drug. Start Date: 02/03/21 Status: Ordered Problem List Condition Effective Dates Status Health Status Inform ant Chiari malformation type I(Confirmed) Active Developmental delay(Confirmed)(Stable) Active Dysmorphic features(Confirmed)(Stable) Active EE (eosinophilic esophagitis)(Confirmed) Active Essential hypertension(Confirmed) Active Exposure to COVID-19 virus(Confirmed) Active Genetic disorder(Confirmed) Active Hypothyroidism(Confirmed) Active Hypothyroidism(Confirmed) Active LLQ abdominal pain(Confirmed) Active Membranous glomerulonephritis(Confirmed) Active Migraine(Confirmed) Active Mitral valve anterior leafle t prolapse(Confirmed)(Stable) Active Mitral valve prolapse(Confirmed) Active Nephrotic syndrome(Confirmed) Active NAFL (nonalcoholic fatty liver)(Confirmed) Active Noncompliance with medications(Confirmed) Active Obstructive sleep apnea(Confirmed) Active Omental infarction(Confirmed) Active Orthostatic proteinuria(Confirmed) Active Osteoporosis(Confirmed) Active Postablative hypothyroidism(Confirmed) Active Proteinuria(Confirmed) Active Syringomyelia and syringobulbia(Confirmed) 1 Active Vitamin D deficiency(Confirmed) Active 1Thoracic Social History Social History Type Response Smoking Status Never smoker entered on: 10/24/17 Sex
--- OUTSIDE RECORDS SUMMARY | 2024-05-20 07:28 | XMS_ITS | Continuity of Care Document ---
Author Organization [facility] Address [address] [place] [address]- Care Team Providers Care Analysis Manager Name Role Phone Karthik HENLEY, Isaiah Douglas Primary Care Physician Encounter [facility] Date(s): 06/07/21 - 07/07/21 [facility] [address] [place] [address]- Allergies, Adverse Reactions, Alerts Substance Reaction Severity [...] Given Parent Or Guardian Refuses 1Result Comment: [id number] 2Location History: [facility] [place] 3Result Comment: [11/26/2016] [facility] 4Result Comment: [11/26/2016] [facility] 5Result Comment: [11/26/2016] [facility] 6Result Comment: [11/26/2016] [facility] 7Result Comment: [11/26/2016] [facility] 8Result Comment: [11/26/2016] [facility] 9Result Comment: [11/26/2016] [facility] 10Result Comment: [11/26/2016] [facility] 11Result Comment: [11/26/2016] [facility] 12Result Comment: [11/26/2016] [facility] 13Result Comment: [11/26/2016] [facility] 14Result Comment: [11/26/2016] [facility] 15Result Comment: [11/26/2016] [facility] 16Result Comment: [11/26/2016] [facility] 17Result Comment: [11/26/2016] [facility] 18Result Comment: [11/26/2016] [facility] 19Result Comment: [11/26/2016] [facility] 20Result Comment: [11/26/2016] [facility] 21Result Comment: [11/26/2016] [facility] 22Result Comment: [11/26/2016] [facility] 23Result Comment: [11/26/2016] [facility] 24Result Comment: [11/26/2016] [facility] 25Result Comment: [11/26/2016] [facility] 26Result Comment: [11/26/2016] [facility] 27Result Comment: [11/26/2016] [facility] 28Result Comment: [11/26/2016] [facility] 29Result Comment: [11/26/2016] [facility] 30Result Comment: [11/26/2016] [facility] 31Result Comment: [11/26/2016] [facility] 32Result Comment: [11/26/2016] [facility] 33Result Comment: [11/26/2016] [facility] Medications levothyroxine 125 mcg (0.125 mg) oral tablet 2 tablet = 250 mcg, By Mouth, Daily, # 60 tablet, 11 Refills, Maintenance, 07/05/21 6:44:00 EST, Tablet, [facility], Partial fill upon patient request if the prescription is for a schedule II opioid drug., 155, cm, 03/27/21 10:58:00 EDT... Start Date: 07/05/21 Status: Ordered lidocaine 4% topical film 1 [...]
--- OUTSIDE RECORDS SUMMARY | 2024-05-20 07:28 | XMS_ITS | Continuity of Care Document ---
Author Organization [facility] Ethan lt Address [address] [place] [address]- Care Team Providers Care Emergency Detail Driver Name Role Phone Karthik HENLEY, Isaiah Douglas Primary Care Physician [phone] [place] [facility] [place](s): 01/15/23 - 02/14/23 [facility] Adult [address] [place] [address]- Allergies, Adverse Reactions, Alerts Substance Reaction Severity Status codeine 1 Surgical adhesive ta pe itching Active Adhesive Bandage 2 Rash Active riTUXimab 3 Severe Active 1hives 2surgical tape allergy as per family 3developed anaphylaxis with throat closure sensation and facial swelling needed brief epinephrine drip Immunizations Given and Recorded Vaccine Date Status Refusal Reason tetanus-diphtheria toxoids (Td) 1 08/15/22 Given [id number] bivalent booster vax 07/05/22 Recorded influenza virus [...] Given Parent Or Guardian Refuses 1Result Comment: [id number] 2Result Comment: [facility] [place] 3Result Comment: [id number] 4Location History: [facility] [place] 5Result Comment: [11/26/2016] [facility] 6Result Comment: [11/26/2016] [facility] 7Result Comment: [11/26/2016] [facility] 8Result Comment: [11/26/2016] [facility] 9Result Comment: [11/26/2016] [facility] 10Result Comment: [11/26/2016] [facility] 11Result Comment: [11/26/2016] [facility] 12Result Comment: [11/26/2016] [facility] 13Result Comment: [11/26/2016] [facility] 14Result Comment: [11/26/2016] [facility] 15Result Comment: [11/26/2016] [facility] 16Result Comment: [11/26/2016] [facility] 17Result Comment: [11/26/2016] [facility] 18Result Comment: [11/26/2016] [facility] 19Result Comment: [11/26/2016] [facility] 20Result Comment: [11/26/2016] [facility] 21Result Comment: [11/26/2016] [facility] 22Result Comment: [11/26/2016] [facility] 23Result Comment: [11/26/2016] [facility] 24Result Comment: [11/26/2016] [facility] 25Result Comment: [11/26/2016] [facility] 26Result Comment: [11/26/2016] [facility] 27Result Comment: [11/26/2016] [facility] 28Result Comment: [11/26/2016] [facility] 29Result Comment: [11/26/2016] [facility] 30Result Comment: [11/26/2016] [facility] 31Result Comment: [11/26/2016] [facility] 32Result Comment: [11/26/2016] [facility] 33Result Comment: [11/26/2016] [facility] 34Result Comment: [11/26/2016] [facility] 35Result Comment: [11/26/2016] [facility] Medications Budesonide 1 mg, 1mg/2ml, Refills 0, Maintenance, 02/13/23 14:21:00 EDT Start Date: 02/13/23 Status: Ordered cholecalciferol 50 mcg (2000 intl units) oral tablet, chewable 2 tablets, By Mouth, Daily, # 60 tablet, 7 Refills, Maintenance, 09/26/22 11:31:00 EST, [facility], Partial fill upon patient request if the prescription is for a schedule II opioid drug., 153, cm, 08/28/22 13:31:00 EST, Height, 60.8, k... Start Date: 09/26/22 Stop Date: 05/24/23 Status: Ordered Flovent 110 mcg Inhaler HFA [...] drug. Start Date: 09/02/20 Status: Ordered lisinopril 2.5 mg oral tablet 2.5 mg, 1, tablet, By Mouth, Daily, Up to 7.5 mg daily, # 30 tablet, Refills 0, Tot. Refills 0, Maintenance, 02/13/23 14:42:00 EDT, Do Not Route, Partial fill upon patient request if the prescriptionis for a schedule II opioid drug. Start Date: 02/13/23 Status: Ordered Lorazepam PRN as needed for anxiety, 0 Refills, Maintenance, 04/05/22 17:20:00 EDT, Partial fill upon patientrequest if the prescription is for a schedule II opioid drug. Start Date: 04/05/22 Status: Ordered Nurtec ODT 75 mg oral tablet, disintegrating PLACE ONE TABLET BY MOUTH EVERY OTHER DAY Start Date: 04/05/22 Status: Ordered Problem List [...] Confirmed Active Noncompliance with medications Confirmed Active Obstructive sleep apnea Confirmed Active Omental infarction Confirmed Active Orthostatic proteinuria Confirmed Active Osteoporosis Confirmed Active Postablative hypothyroidism Confirmed Active Proteinuria Confirmed Active Syringomyelia and syringobulbia 1 Confirmed Active Vitamin D deficiency Confirmed Active 1Thoracic Social History Social History Type Response Smoking Status Never smoker entered on: 10/24/17 Sex Patient Care team information Care Team Personnel Name: Margaux Vivas RN Position: [facility] RN Member Role: Primary Care Nurse Name: Live Leyva MD Position: [facility] Physician -Physician Practices Member Role: Lifetime Consulting Physician Name: Jeanmarie Lopez MD Position: [facility] Renal MD Member Role: Lifetime Consulting Physician Address: Address: [address] [place] [address], [address] [facility] [place] [address]- Name: Lashonda Clifford Position: [facility] Outreach Member Role: Lifetime Consulting Physician Name: Isaiah Angeles MD Position: [facility] Physician - Primary Care Member Role: PCP Address: Address: [address] [place] [address] Name: Annalise Lara RN Position: S RN Member Role: Primary Care Nurse Name: Mark Wilkes MD Position: S Renal MD Member Role: Lifetime Consulting Physician Address: Address: [address] [place] [address] [facility] [address] Name: Bibiana Treviño RN Position: S RN Member Role: Primary Care Nurse Care Team Related Persons Name: CLAUDETTE MILLERE Address: [place] [id number] Name: MIRA MILLER Address: [place] [phone] Name: ANGELA MIRA Address: [place] [id number] Name: ANGELA MIRA Address: [place] [phone] Name: MIRA MILLER Address: [place] [phone] Name: ANGELAMIRA Address: [place] [phone] Name: ANGELA MIRA Address: [place] [phone] Name: PRATEEK MILLER Address: [address] [address] Name: BELEN MILLER Address: [address] [address] Name: BELEN MILLER Address: [address] [address]
--- OUTSIDE RECORDS SUMMARY | 2024-05-20 07:28 | XMS_ITS | Continuity of Care Document ---
Author Organization [facility] Address [address] [place] [address]- Care Team Providers Care Sales Analytics Manager Name Role Phone Isaiah Angeles MD Primary Care Physician [phone] Encounter [facility] Date(s): 04/10/21 - 05/25/[address] [address] Attending Physician: Isaiah Angeles MD Admitting Physician: Isaiah Angeles MD Referring Physician: Isaiah Angeles MD Allergies, Adverse Reactions, Alerts Substance Reaction Severity [...] Given Parent Or Guardian Refuses 1Result Comment: [facility]-[id number] 2Location History: [facility] 3Result Comment: [11/26/2016] [facility] 4Result Comment: [11/26/2016] [facility] 5Result Comment: [11/26/2016] [facility] 6Result Comment: [11/26/2016] [facility] 7Result Comment: [11/26/2016] [facility] 8Result Comment: [11/26/2016] [facility] 9Result Comment: [11/26/2016] [facility] 10Result Comment: [11/26/2016] [facility] 11Result Comment: [11/26/2016] [facility] 12Result Comment: [11/26/2016] [facility] 13Result Comment: [11/26/2016] [facility] 14Result Comment: [11/26/2016] [facility] 15Result Comment: [11/26/2016] [facility] 16Result Comment: [11/26/2016] [facility] 17Result Comment: [11/26/2016] [facility] 18Result Comment: [11/26/2016] [facility] 19Result Comment: [11/26/2016] [facility] 20Result Comment: [11/26/2016] [facility] 21Result Comment: [11/26/2016] [facility] 22Result Comment: [11/26/2016] [facility] 23Result Comment: [11/26/2016] [facility] 24Result Comment: [11/26/2016] [facility] 25Result Comment: [11/26/2016] [facility] 26Result Comment: [11/26/2016] [facility] 27Result Comment: [11/26/2016] [facility] 28Result Comment: [11/26/2016] [facility] 29Result Comment: [11/26/2016] [facility] 30Result Comment: [11/26/2016] [facility] 31Result Comment: [11/26/2016] [facility] 32Result Comment: [11/26/2016] [facility] 33Result Comment: [11/26/2016] [facility] Medications levothyroxine 125 mcg (0.125 mg) [...]
--- OUTSIDE RECORDS SUMMARY | 2024-05-20 07:28 | XMS_ITS | Continuity of Care Document ---
Author Organization [facility] Address [address] [place] [address]- Care Team Providers Care Semiconductor Technician Name Role Phone Karthik HENLEY, Isaiah Douglas Primary Care Physician [phone] Encounter [facility] Date(s): 11/05/22 - 12/05/22 [facility] [address] [place] [address]- [place] Allergies, Adverse Reactions, Alerts Substance Reaction Severity Status codeine 1 Surgical adhesive ta pe itching Active Adhesive Bandage 2 Rash Active riTUXimab 3 Severe Active 1hives 2surgical tape allergy as per family 3developed anaphylaxis with throat closure sensation and facial swelling needed brief epinephrine drip Immunizations Given and Recorded Vaccine Date Status Refusal Reason tetanus-diphtheria toxoids (Td) 1 08/15/22 Given [id number] bivalent booster vax 07/05/22 Recorded influenza virus [...] Given Parent Or Guardian Refuses 1Result Comment: [id number] 2Result Comment: [facility] [place] 3Result Comment: [facility]-[id number] 4Location History: [facility] [place] 5Result Comment: [11/26/2016] [facility] 6Result Comment: [11/26/2016] [facility] 7Result Comment: [11/26/2016] [facility] 8Result Comment: [11/26/2016] [facility] 9Result Comment: [11/26/2016] [facility] 10Result Comment: [11/26/2016] [facility] 11Result Comment: [11/26/2016] [facility] 12Result Comment: [11/26/2016] [facility] 13Result Comment: [11/26/2016] [facility] 14Result Comment: [11/26/2016] [facility] 15Result Comment: [11/26/2016] [facility] 16Result Comment: [11/26/2016] [facility] 17Result Comment: [11/26/2016] [facility] 18Result Comment: [11/26/2016] [facility] 19Result Comment: [11/26/2016] [facility] 20Result Comment: [11/26/2016] [facility] 21Result Comment: [11/26/2016] [facility] 22Result Comment: [11/26/2016] [facility] 23Result Comment: [11/26/2016] [facility] 24Result Comment: [11/26/2016] [facility] 25Result Comment: [11/26/2016] [facility] 26Result Comment: [11/26/2016] [facility] 27Result Comment: [11/26/2016] [facility] 28Result Comment: [11/26/2016] [facility] 29Result Comment: [11/26/2016] [facility] 30Result Comment: [11/26/2016] [facility] 31Result Comment: [11/26/2016] [facility] 32Result Comment: [11/26/2016] [facility] 33Result Comment: [11/26/2016] [facility] 34Result Comment: [11/26/2016] [facility] 35Result Comment: [11/26/2016] [facility] Medications cholecalciferol 50 mcg (2000 intl [...] Team Personnel Name: Margaux Vivas RN Position: [facility] RN Member Role: Primary Care Nurse Name: Live Leyva MD Position: [facility] Physician -Physician Practices Member Role: Lifetime Consulting Physician Name: Jeanmarie Lopez MD Position: [facility] Renal MD Member Role: Lifetime Consulting Physician Address: Address: [address] [place] [address], [facility] [address] Name: Lashonda Clifford Position: [facility] Outreach Member Role: Lifetime Consulting Physician Name: Tiera Wadsworth RN Position: [facility] RN Member Role: Primary Care Nurse Name: Isaiah Angeles MD Position: [facility] Primary Care Physician Member Role: PCP Address: Address: [address] [place] [address]- [place] Name: Annalise Lara RN Position: S RN Member Role: Primary Care Nurse Name: Mark Wilkes MD Position: S Renal MD Member Role: Lifetime Consulting Physician Address: Address: [address] [place] [address] [facility] [place] [address]- Name: Bibiana Treviño RN Position: S RN Member Role: Primary Care Nurse Care Team Related Persons Name: MIRA MILLER Address: [place] [phone] Name: ANGELA MIRA Address: [place] [phone] Name: ANGELA MIRA Address: [place] [phone] Name: ANGELA MIRA Address: [place] [phone] Name: ANGELAMIRA Address: [place] [phone] Name: MIRA IMLLER Address: [address] [id number] Name: ANGELA MIRA Address: [place] [phone] Name: PRATEEK MILLER Address: [address] [address] Name: BELEN MILLER Address: [address] [address] Name: BELEN MILLER Address: [address] [address]
--- OUTSIDE RECORDS SUMMARY | 2024-05-20 07:28 | XMS_ITS | Continuity of Care Document ---
Author Organization [facility] Ethan lt Address [address] [place] [address]- Care Team Providers Care Blanket Binder Name Role Phone Karthik HENLEY, Isaiah Douglas Primary Care Physician Encounter [facility] Date(s): 01/03/21 - 02/02/21 [facility] Adult [address] [place] [address]- Allergies, Adverse Reactions, Alerts Substance Reaction Severity Status codeine itching Active Adhesive Bandage Rash Active Immunizations Given and Recorded Vaccine Date Status Refusal Reason influenza virus vaccine, inactivated 1 05/20/19 Gi [...] Given Parent Or Guardian Refuses 1Result Comment: [facility]-[id number] 2Location History: [facility] [place] 3Result Comment: [11/26/2016] [facility] 4Result Comment: [11/26/2016] [facility] 5Result Comment: [11/26/2016] [facility] 6Result Comment: [11/26/2016] [facility] 7Result Comment: [11/26/2016] [facility] 8Result Comment: [11/26/2016] [facility] 9Result Comment: [11/26/2016] [facility] 10Result Comment: [11/26/2016] [facility] 11Result Comment: [11/26/2016] [facility] 12Result Comment: [11/26/2016] [facility] 13Result Comment: [11/26/2016] [facility] 14Result Comment: [11/26/2016] [facility] 15Result Comment: [11/26/2016] [facility] 16Result Comment: [11/26/2016] [facility] 17Result Comment: [11/26/2016] [facility] 18Result Comment: [11/26/2016] [facility] 19Result Comment: [11/26/2016] [facility] 20Result Comment: [11/26/2016] [facility] 21Result Comment: [11/26/2016] [facility] 22Result Comment: [11/26/2016] [facility] 23Result Comment: [11/26/2016] [facility] 24Result Comment: [11/26/2016] [facility] 25Result Comment: [11/26/2016] [facility] 26Result Comment: [11/26/2016] [facility] 27Result Comment: [11/26/2016] [facility] 28Result Comment: [11/26/2016] [facility] 29Result Comment: [11/26/2016] [facility] 30Result Comment: [11/26/2016] [facility] 31Result Comment: [11/26/2016] [facility] 32Result Comment: [11/26/2016] [facility] 33Result Comment: [11/26/2016] [facility] Medications lidocaine 4% topical film 1 patch, Topically, 2 times a day, # 6 each, 0 Refills, Maintenance, 09/02/20 7:04:00 EST, Film, Partial fill upon patient request if the prescription is for a schedule II opioid drug. Start Date: 09/02/20 Status: Ordered lisinopril 5 mg oral tablet 5 mg, 1, tablet, By Mouth, 2 times a day, # 60 tablet, Refills 0, Tot. Refills 0, Maintenance, 07/22/20 11:28:00 EST, Do Not Route, Partial fill upon patient request if the prescription is for a schedule II opioid drug. Start Date: 07/22/20 Status: Ordered Vimpat 50 mg oral tablet 1 tablet = 50 mg, By Mouth, 2 times a day, # 60 tablet, 5 Refills, Maintenance, 12/11/18 17:03:21 EDT, Tablet Start Date: 12/11/18 Stop Date: 06/09/19 Status: Ordered Problem List Condition Effective Dates Status Health Status Inform ant Chiari malformation type I(Confirmed) Active Developmental delay(Confirmed)(Stable) Active Dysmorphic features(Confirmed)(Stable) Active EE (eosinophilic esophagitis)(Confirmed) Active Essential hypertension(Confirmed) Active Genetic disorder(Confirmed) Active Hypothyroidism(Confirmed) Active LLQ abdominal pain(Confirmed) Active Migraine(Confirmed) Active Mitral valve anterior leafle [...]
--- OUTSIDE RECORDS SUMMARY | 2024-05-20 07:28 | XMS_ITS | Continuity of Care Document ---
Author Organization [facility] Ethan [facility] Address [address] [place] [address]- Care Team Providers Care Technical Support Director Name Role Phone Karthik HENLEY, Isaiah Douglas Primary Care Physician [place] [facility]01[place]20 - 08/31/20 [facility] Adult [address] [place] [address]- Allergies, Adverse Reactions, Alerts Substance Reaction Severity [...] Given Parent Or Guardian Refuses 1Result Comment: [facility]-[id number] 2Location History: [facility] [place] 3Result Comment: [11/26/2016] [facility] 4Result Comment: [11/26/2016] [facility] 5Result Comment: [11/26/2016] [facility] 6Result Comment: [11/26/2016] [facility] 7Result Comment: [11/26/2016] [facility] 8Result Comment: [11/26/2016] [facility] 9Result Comment: [11/26/2016] [facility] 10Result Comment: [11/26/2016] [facility] 11Result Comment: [11/26/2016] [facility] 12Result Comment: [11/26/2016] [facility] 13Result Comment: [11/26/2016] [facility] 14Result Comment: [11/26/2016] [facility] 15Result Comment: [11/26/2016] [facility] 16Result Comment: [11/26/2016] [facility] 17Result Comment: [11/26/2016] [facility] 18Result Comment: [11/26/2016] [facility] 19Result Comment: [11/26/2016] [facility] 20Result Comment: [11/26/2016] [facility] 21Result Comment: [11/26/2016] [facility] 22Result Comment: [11/26/2016] [facility] 23Result Comment: [11/26/2016] [facility] 24Result Comment: [11/26/2016] [facility] 25Result Comment: [11/26/2016] [facility] 26Result Comment: [11/26/2016] [facility] 27Result Comment: [11/26/2016] [facility] 28Result Comment: [11/26/2016] [facility] 29Result Comment: [11/26/2016] [facility] 30Result Comment: [11/26/2016] [facility] 31Result Comment: [11/26/2016] [facility] 32Result Comment: [11/26/2016] [facility] 33Result Comment: [11/26/2016] [facility] Medications carvedilol 12.5 mg oral tablet 12.5 mg, 1, tablet, By Mouth, 2 times a day, PRN, # 30 tablet, Refills 0, Tot. Refills 0, Maintenance, elevated DBP, 07/23/20 7:22:00 EST, Do Not Route, Partial fill upon patient request if the prescription is for a schedule II opioid drug. Start Date: 07/23/20 Status: Ordered furosemide 20 mg oral tablet 20 mg, 1, tablet, By Mouth, Daily, # 30 tablet, Refills 0, Tot. Refills 0, Maintenance, 10/22/19 13:43:00 EST, Do Not Route Start Date: 10/22/19 Status: Ordered levothyroxine 0.2 mg oral tablet 1 tablet = 200 mcg, By Mouth, Daily, # 90 tablet, 4 Refills, Maintenance, 02/26/20 12:05:00 EDT, Tablet, [facility], 153, cm, 02/26/20 12:03:00 EDT, Height, 62, kg, 01/02/20 11:03:00 EDT, Dry Weight Start Date: 02/26/20 Status: Ordered lisinopril 5 mg oral tablet [...]
--- OUTSIDE RECORDS SUMMARY | 2024-05-20 07:28 | XMS_ITS | Continuity of Care Document ---
Author Organization [facility] Ethan [facility] Address [address] [place] [address]- Care Team Providers Care Performance Improvement Analyst Name Role Phone Karthik HENLEY, Isaiah Douglas Primary Care Physician [place] [facility] [place] 10[place]04[place]21 - 11/03/21 [facility] Adult [address] [place] [address]- Allergies, Adverse Reactions, Alerts Substance Reaction Severity [...] Given Parent Or Guardian Refuses 1Result Comment: [facility]-[id number] 2[facility] 3Result Comment: [11/26/2016] [facility] 4Result Comment: [11/26/2016] [facility] 5Result Comment: [11/26/2016] [facility] 6Result Comment: [11/26/2016] [facility] 7Result Comment: [11/26/2016] [facility] 8Result Comment: [11/26/2016] [facility] 9Result Comment: [11/26/2016] [facility] 10Result Comment: [11/26/2016] [facility] 11Result Comment: [11/26/2016] [facility] 12Result Comment: [11/26/2016] [facility] 13Result Comment: [11/26/2016] [facility] 14Result Comment: [11/26/2016] [facility] 15Result Comment: [11/26/2016] [facility] 16Result Comment: [11/26/2016] [facility] 17Result Comment: [11/26/2016] [facility] 18Result Comment: [11/26/2016] [facility] 19Result Comment: [11/26/2016] [facility] 20Result Comment: [11/26/2016] [facility] 21Result Comment: [11/26/2016] [facility] 22Result Comment: [11/26/2016] [facility] 23Result Comment: [11/26/2016] [facility] 24Result Comment: [11/26/2016] [facility] 25Result Comment: [11/26/2016] [facility] 26Result Comment: [11/26/2016] [facility] 27Result Comment: [11/26/2016] [facility] 28Result Comment: [11/26/2016] [facility] 29Result Comment: [11/26/2016] [facility] 30Result Comment: [11/26/2016] [facility] 31Result Comment: [11/26/2016] [facility] 32Result Comment: [11/26/2016] [facility] 33Result Comment: [11/26/2016] [facility] Medications lidocaine 4% topical film 1 [...]
--- OUTSIDE RECORDS SUMMARY | 2024-05-20 07:28 | XMS_ITS | Continuity of Care Document ---
Author Organization [facility] Address [address] [place] [address]- Care Team Providers Care Flatwork Ironer Name Role Phone Karthik HENLEY, Isaiah Douglas Primary Care Physician Encounter [facility] Date(s): 08/21/21 - 09/30/[address] [id number] Attending Physician: Andrei Womack MD Admitting Physician: Andrei Womack MD Referring Physician: Andrei Womack MD Allergies, Adverse Reactions, Alerts Substance Reaction [...] rded Haemophilus B-Hepatitis B Vaccine 29 96 Fraeed rded Haemophilus B-Hepatitis B Vaccine 30 96 Fareed rded hepatitis B pediatric vaccine 31 96 Recorded hepatitis B pediatric vaccine 32 96 Recorded hepatitis B pediatric vaccine 33 96 Recorded Not Given Vaccine Date Status Refusal Reason pneumococcal 23-valent vaccine 04/26/19 Not Given Parent Or Guardian Refuses 1Result Comment: [facility]-[id number] 2Location History: [facility] [place] 3Result Comment: [11/26/2016] [facility] 4Result Comment: [11/26/2016] [facility] 5Result Comment: [11/26/2016] [facility] 6Result Comment: [11/26/2016] [facility] 7Result Comment: [11/26/2016] [facility] 8Result Comment: [11/26/2016] [facility] 9Result Comment: [11/26/2016] [facility] 10Result Comment: [11/26/2016] [facility] 11Result Comment: [11/26/2016] [facility] 12Result Comment: [11/26/2016] [facility] 13Result Comment: [11/26/2016] [facility] 14Result Comment: [11/26/2016] [facility] 15Result Comment: [11/26/2016] [facility] 16Result Comment: [11/26/2016] [facility] 17Result Comment: [11/26/2016] [facility] 18Result Comment: [11/26/2016] [facility] 19Result Comment: [11/26/2016] [facility] 20Result Comment: [11/26/2016] [facility] 21Result Comment: [11/26/2016] [facility] 22Result Comment: [11/26/2016] [facility] 23Result Comment: [11/26/2016] [facility] 24Result Comment: [11/26/2016] [facility] 25Result Comment: [11/26/2016] [facility] 26Result Comment: [11/26/2016] [facility] 27Result Comment: [11/26/2016] [facility] 28Result Comment: [11/26/2016] [facility] 29Result Comment: [11/26/2016] [facility] 30Result Comment: [11/26/2016] [facility] 31Result Comment: [11/26/2016] [facility] 32Result Comment: [11/26/2016] [facility] 33Result Comment: [11/26/2016] [facility] Medications lidocaine 4% topical film 1 [...]
--- OUTSIDE RECORDS SUMMARY | 2024-05-20 07:28 | XMS_ITS | Continuity of Care Document ---
Author Organization [facility] Ethan [facility] Address [address] [place] [address]- Care Team Providers Care Safe Deposit Attendant Name Role Phone Isaiah Angeles MD Primary Care Physician En[place] [facility] [place] Date(s): 07/22/20 - 07/29/20 [facility] Adult [address] [place] [address]- Attending Physician: Isaiah Angeles MD Allergies, Adverse Reactions, [...] Given Parent Or Guardian Refuses 1Result Comment: [facility]-[id number] 2Location History: [facility] [place] 3Result Comment: [11/26/2016] [facility] 4Result Comment: [11/26/2016] [facility] 5Result Comment: [11/26/2016] [facility] 6Result Comment: [11/26/2016] [facility] 7Result Comment: [11/26/2016] [facility] 8Result Comment: [11/26/2016] [facility] 9Result Comment: [11/26/2016] [facility] 10Result Comment: [11/26/2016] [facility] 11Result Comment: [11/26/2016] [facility] 12Result Comment: [11/26/2016] [facility] 13Result Comment: [11/26/2016] [facility] 14Result Comment: [11/26/2016] [facility] 15Result Comment: [11/26/2016] [facility] 16Result Comment: [11/26/2016] [facility] 17Result Comment: [11/26/2016] [facility] 18Result Comment: [11/26/2016] [facility] 19Result Comment: [11/26/2016] [facility] 20Result Comment: [11/26/2016] [facility] 21Result Comment: [11/26/2016] [facility] 22Result Comment: [11/26/2016] [facility] 23Result Comment: [11/26/2016] [facility] 24Result Comment: [11/26/2016] [facility] 25Result Comment: [11/26/2016] [facility] 26Result Comment: [11/26/2016] [facility] 27Result Comment: [11/26/2016] [facility] 28Result Comment: [11/26/2016] [facility] 29Result Comment: [11/26/2016] [facility] 30Result Comment: [11/26/2016] [facility] 31Result Comment: [11/26/2016] [facility] 32Result Comment: [11/26/2016] [facility] 33Result Comment: [11/26/2016] [facility] Medications carvedilol 12.5 mg oral tablet [...] 1 Active Vitamin D deficiency(Confirmed) Active 1Thoracic Vital Signs Most recent to oldest [Reference Range]: 1 2 3 Height 153 cm (07/22/20 11:23 AM) 153 cm (07/22/20 11:23 AM) 153 cm (07/22/20 11:02 AM) Weight 67.5 kg (07/22/20 11:02 AM) Oxygen Saturation [94-100 %] 95 % (07/22/20 11:02 AM) Pulse Rate [55-90 bpm] 77 bpm (07/22/20 11:02 AM) Body Mass Index [18.5-24.99] 28.84 *H* (07/22/20 11:02 AM) Blood Pressure [90-138/55-84 mm Hg] 135/93mm Hg (07/22/20 11:23 AM) 133/91mm Hg (07/22/20 11:23 AM) 130/78mm Hg (07/22/20 11:02 AM) Temperature [96.8-100.4 DegF] 98.1 DegF (07/22/20 11:02 AM) Blood pressure sites Arm, left (07/22/20 11:23 AM) Arm, right (07/22/20 11:23 AM) Arm, left (07/22/20 11:02 AM) Temperature Route Oral (07/22/20 11:02 AM) Weight Obtained Via Standing scale (07/22/20 11:02 AM) Social History Social History Type Response Smoking Status Never smoker entered on: 10/24/17 Sex
--- OUTSIDE RECORDS SUMMARY | 2024-05-20 07:28 | XMS_ITS | Continuity of Care Document ---
Author Organization [facility] Address [address] [place] [address]- Care Team Providers Care Drophammer Operator Name Role Phone Karthik HENLEY, Isaiah Douglas Primary Care Physician En[place] [facility] [place] Date(s): 02/28/24 - 03/29/24 [facility] [address] [place] [address]- Allergies, Adverse Reactions, Alerts Substance Reaction [...] corded tetanus-diphtheria toxoids (Td) 10 08/15/22 Given [id number] bivalent booster vax 07/05/22 Recorded SARS-CoV-2 (COVID-19) [...] Comment: [facility] [place] 2Result Comment: [facility]-[id number] 3Location History: [facility] [place] 4Result Comment: [11/26/2016] [facility] 5Result Comment: [11/26/2016] [facility] 6Result Comment: [11/26/2016] [facility] 7Result Comment: [11/26/2016] [facility] 8Result Comment: [11/26/2016] [facility] 9Result Comment: [11/26/2016] [facility] 10Result Comment: [id number] 11Result Comment: [11/26/2016] [facility] 12Result Comment: [11/26/2016] [facility] 13Result Comment: [11/26/2016] [facility] 14Result Comment: [11/26/2016] [facility] 15Result Comment: [11/26/2016] [facility] 16Result Comment: [11/26/2016] [facility] 17Result Comment: [11/26/2016] [facility] 18Result Comment: [11/26/2016] [facility] 19Result Comment: [11/26/2016] [facility] 20Result Comment: [11/26/2016] [facility] 21Result Comment: [11/26/2016] [facility] 22Result Comment: [11/26/2016] [facility] 23Result Comment: [11/26/2016] [facility] 24Result Comment: [11/26/2016] [facility] 25Result Comment: [11/26/2016] [facility] 26Result Comment: [11/26/2016] [facility] 27Result Comment: [11/26/2016] [facility] 28Result Comment: [11/26/2016] [facility] 29Result Comment: [11/26/2016] [facility] 30Result Comment: [11/26/2016] [facility] 31Result Comment: [11/26/2016] [facility] 32Result Comment: [11/26/2016] [facility] 33Result Comment: [11/26/2016] [facility] 34Result Comment: [11/26/2016] [facility] 35Result Comment: [11/26/2016] [facility] Medications [...] of 25 mcg plus 200 mcg (2 of the 100 mcg tabs) fora total of 225 mcg 5 days a week. avoid antacids, calcium, or iron for at least 4 hrs before or 4 hrs after, # 30 tablet, 6 Refills, Maintenance, ... Start Date: 01/16/24 Stop Date: 08/13/24 Status: Ordered levothyroxine 0.1 mg oral tablet 2 tablet = 200 mcg, By Mouth, Daily, Take 200 mcg (2 of the 100 mcg tabs) plus 25mcg tab for a total of 225 mcg 5 days a week and 200mcg (2 of the 100mcg tab) 2 days a week avoid antacids, calcium, or iron for at least 4 hrs before or 4 hrs after,... Start Date: 01/16/24 Stop Date: 08/13/24 Status: Ordered lidocaine 4% topical film 1 [...] = 1,250 mcg, By Mouth, Every week, after completed the 12 weeks please start vitamin D 2000 IUs daily, # 12 capsule, 0 Refills, Maintenance, 01/16/24 10:00:00 EDT, Capsule, [facility], Partial fill upon patient request if the... Start Date: 01/16/24 Stop Date: 04/09/24 Status: Ordered Problem List Condition Confirmation Course [...] Team Personnel Name: Live Leyva MD Position: [facility] Physician -Physician Practices Member Role: Lifetime Consulting Physician Name: Jeanmarie Lopez MD Position: [facility] Renal MD Member Role: Lifetime Consulting Physician Address: Address: [address] [place] [address] [address] [place] [address]- Name: Lashonda Clifford Position: [facility] Outreach Member Role: Lifetime Consulting Physician Name: Tiera Wadsworth RN Position: [facility] RN Member Role: Primary Care Nurse Name: John Davila DO Position: [facility] Renal MD Member Role: Lifetime Consulting Physician Address: Address: [address] [facility] [place] [address]- [place] Name: Karthik HENLEY, Isaiah Douglas Position: [facility] Physician - Primary Care Member Role: PCP Address: Address: [address] [place] [address]- [place] Name: Annalise Lara RN Position: [facility] RN Member Role: Primary Care Nurse Name: Mark Wilkes MD Position: [facility] Renal MD Member Role: Lifetime Consulting Physician Address: Address: [address] [place] [address] [facility] [place] [address]- [place] Name: Bibiana Treviño RN Position: [facility] RN Member Role: Primary Care Nurse Care Team Related Persons Name: MIRA MILLER Address: [place] Address: home [address] [place] [address] [place] Name: MIRA MILLER Address: home [address] [id number] Name: PRATEEK MILLER Address: [address] [place] [address] Name: BELEN MILLER Address: [address] [place] [address] Name: BELEN MILLER Address: [address] [place] [address]
--- OUTSIDE RECORDS SUMMARY | 2024-05-20 07:28 | XMS_ITS | Continuity of Care Document ---
Author Organization [facility] Address [address] [place] [address]- Care Team Providers Care Spinner Box Name Role Phone Karthik HENLEY, Isaiah Douglas Primary Care Physician En[place] [facility] Date(s): 06/28/21 - 07/28/21 [facility] Adult [address] [place] [address]- Allergies, Adverse Reactions, Alerts Substance Reaction Severity [...] Refuses 1Result Comment: [facility]-[id number] 2Location History: [facility] [place] 3Result Comment: [11/26/2016] [facility] 4Result Comment: [11/26/2016] [facility] 5Result Comment: [11/26/2016] [facility] 6Result Comment: [11/26/2016] [facility] 7Result Comment: [11/26/2016] [facility] 8Result Comment: [11/26/2016] [facility] 9Result Comment: [11/26/2016] [facility] 10Result Comment: [11/26/2016] [facility] 11Result Comment: [11/26/2016] [facility] 12Result Comment: [11/26/2016] [facility] 13Result Comment: [11/26/2016] [facility] 14Result Comment: [11/26/2016] [facility] 15Result Comment: [11/26/2016] [facility] 16Result Comment: [11/26/2016] [facility] 17Result Comment: [11/26/2016] [facility] 18Result Comment: [11/26/2016] [facility] 19Result Comment: [11/26/2016] [facility] 20Result Comment: [11/26/2016] [facility] 21Result Comment: [11/26/2016] [facility] 22Result Comment: [11/26/2016] [facility] 23Result Comment: [11/26/2016] [facility] 24Result Comment: [11/26/2016] [facility] 25Result Comment: [11/26/2016] [facility] 26Result Comment: [11/26/2016] [facility] 27Result Comment: [11/26/2016] [facility] 28Result Comment: [11/26/2016] [facility] 29Result Comment: [11/26/2016] [facility] 30Result Comment: [11/26/2016] [facility] 31Result Comment: [11/26/2016] [facility] 32Result Comment: [11/26/2016] [facility] 33Result Comment: [11/26/2016] [facility] Medications lidocaine 4% topical film 1 [...]
--- OUTSIDE RECORDS SUMMARY | 2024-05-20 07:28 | XMS_ITS | Continuity of Care Document ---
Author Organization [facility] Address [address] [place] [address]- Care Team Providers Care Hide Or Skin Buffer Name Role Phone Karthik HENLEY, Isaiah Douglas Primary Care Physician [phone] Encounter [facility] [place] Date(s): 05/22/22 - 06/21/22 [facility] [address] [place] [address] Allergies, Adverse Reactions, Alerts Substance Reaction Severity Status codeine 1 Surgical adhesive ta pe itching Active Adhesive Bandage 2 Rash Active riTUXimab 3 Severe Active 1hives 2surgical tape allergy as per family 3developed anaphylaxis with throat closure sensation and facial swelling needed brief epinephrine drip Immunizations Given and Recorded Vaccine Date Status Refusal Reason influenza virus vaccine, inactivated 1 06/03/22 Re [...] virus vaccine, inactivated 9 07/06/10 Re corded SARS-CoV-2 (COVID-19) mRNA-1273 vaccine 07/12/21 R ecorded SARS-CoV-2 (COVID-19) mRNA BNT-162b2 vac 12/18/20 Recorded SARS-CoV-2 (COVID-19) mRNA BNT-162b2 vac 11/27/20 Recorded Meningococcal Conjugate Vaccine 10 01/25/14 Record ed Human Papillomavirus Vaccine 11 01/25/14 Recorded Human Papillomavirus Vaccine 12 12/29/12 Recorded tetanus/diphtheria/pertussis, acel(Tdap) 13 11/10/08 Recorded Varicella Virus Vaccine 14 11/10/08 Recorded Varicella Virus Vaccine 15 02/16/97 Recorded Poliovirus Vaccine, Inactivated 16 04/25/01 Record ed Poliovirus Vaccine, Inactivated 17 04/25/01 Record ed Poliovirus Vaccine, Inactivated 18 10/11/97 Record ed Poliovirus Vaccine, Inactivated 19 96 Record ed Poliovirus Vaccine, Inactivated 20 96 Record ed diphtheria/tetanus/pertussis, acel(DTaP) 21 04/25/01 Recorded diphtheria/tetanus/pertussis, acel(DTaP) 22 10/11/97 Recorded diphtheria/tetanus/pertussis, acel(DTaP) 23 96 Recorded diphtheria/tetanus/pertussis, acel(DTaP) 24 96 Recorded diphtheria/tetanus/pertussis, acel(DTaP) 25 96 Recorded diphtheria/tetanus/pertussis, acel(DTaP) 26 96 Recorded Measles/Mumps/Rubella Virus Vaccine 27 06/16/97 Re corded Haemophilus B-Hepatitis B Vaccine 28 06/16/97 Fareed rded Haemophilus B-Hepatitis B Vaccine 29 96 Fareed rded Haemophilus B-Hepatitis B Vaccine 30 96 Fareed rded Haemophilus B-Hepatitis B Vaccine 31 96 Fareed rded hepatitis B pediatric vaccine 32 96 Recorded hepatitis B pediatric vaccine 33 96 Recorded hepatitis B pediatric vaccine 34 96 Recorded Not Given Vaccine Date Status Refusal Reason pneumococcal 23-valent vaccine 04/26/19 Not Given Parent Or Guardian Refuses 1Result Comment: [facility] [place] 2Result Comment: [facility] [place]-[id number] 3Location History: [facility] [place] 4Result Comment: [11/26/2016] [facility] 5Result Comment: [11/26/2016] [facility] 6Result Comment: [11/26/2016] [facility] 7Result Comment: [11/26/2016] [facility] 8Result Comment: [11/26/2016] [facility] 9Result Comment: [11/26/2016] [facility] 10Result Comment: [11/26/2016] [facility] 11Result Comment: [11/26/2016] [facility] 12Result Comment: [11/26/2016] [facility] 13Result Comment: [11/26/2016] [facility] 14Result Comment: [11/26/2016] [facility] 15Result Comment: [11/26/2016] [facility] 16Result Comment: [11/26/2016] [facility] 17Result Comment: [11/26/2016] [facility] 18Result Comment: [11/26/2016] [facility] 19Result Comment: [11/26/2016] [facility] 20Result Comment: [11/26/2016] [facility] 21Result Comment: [11/26/2016] [facility] 22Result Comment: [11/26/2016] [facility] 23Result Comment: [11/26/2016] [facility] 24Result Comment: [11/26/2016] [facility] 25Result Comment: [11/26/2016] [facility] 26Result Comment: [11/26/2016] [facility] 27Result Comment: [11/26/2016] [facility] 28Result Comment: [11/26/2016] [facility] 29Result Comment: [11/26/2016] [facility] 30Result Comment: [11/26/2016] [facility] 31Result Comment: [11/26/2016] [facility] 32Result Comment: [11/26/2016] [facility] 33Result Comment: [11/26/2016] [facility] 34Result Comment: [11/26/2016] [facility] Medications Flovent 110 mcg Inhaler HFA [...] drug. Start Date: 04/05/22 Status: Ordered levothyroxine 150 mcg (0.15 mg) oral tablet 1 tablet = 150 mcg, By Mouth, Daily, # 90 tablet, 3 Refills, Maintenance, 05/23/22 9:05:00 EDT, Tablet, [facility], this is an intentional change in dosing reflecting poor thyroid function. I am aware this is a big jump and it is intent... Start Date: 05/23/22 Status: Ordered lidocaine 4% topical film 1 patch, Topically, 2 times a day, # 6 each, 0 Refills, Maintenance, 09/02/20 7:04:00 EST, Film, Partial fill upon patient request if the prescription is for a schedule II opioid drug. Start Date: 09/02/20 Status: Ordered lisinopril 5 mg oral tablet 5 mg, 1, tablet, By Mouth, Daily, # 30 tablet, Refills 0, Maintenance, 04/05/22 17:18:00 EDT, Partial fill upon patient request if the prescription is for a schedule II opioid drug. Start Date: 04/05/22 Status: Ordered Lorazepam PRN as needed for [...] on: 10/24/17 Sex Patient Care team information Personnel Name: Isaiah Angeles MD Address: Address: [address] [place] [id number]- [place]
--- OUTSIDE RECORDS SUMMARY | 2024-05-20 07:28 | XMS_ITS | Continuity of Care Document ---
Author Organization [facility] Ethan lt Address [address] [place] [address]- Care Team Providers Care Account Analyst Name Role Phone Karthik HENLEY, Isaiah Douglas Primary Care Physician [phone] [facility] Date(s): 02/07/22 - 03/09/22 [facility] Adult [address] [place] [address]- Allergies, Adverse Reactions, Alerts Substance Reaction Severity Status codeine itching Active Adhesive Bandage Rash Active Immunizations Given and Recorded Vaccine Date Status Refusal Reason SARS-CoV-2 (COVID-19) mRNA-1273 vaccine 07/12/21 R ecorded [...] Given Parent Or Guardian Refuses 1Result Comment: [facility]-[id number] 2Location History: [facility] [place] 3Result Comment: [11/26/2016] [facility] 4Result Comment: [11/26/2016] [facility] 5Result Comment: [11/26/2016] [facility] 6Result Comment: [11/26/2016] [facility] 7Result Comment: [11/26/2016] [facility] 8Result Comment: [11/26/2016] [facility] 9Result Comment: [11/26/2016] [facility] 10Result Comment: [11/26/2016] [facility] 11Result Comment: [11/26/2016] [facility] 12Result Comment: [11/26/2016] [facility] 13Result Comment: [11/26/2016] [facility] 14Result Comment: [11/26/2016] [facility] 15Result Comment: [11/26/2016] [facility] 16Result Comment: [11/26/2016] [facility] 17Result Comment: [11/26/2016] [facility] 18Result Comment: [11/26/2016] [facility] 19Result Comment: [11/26/2016] [facility] 20Result Comment: [11/26/2016] [facility] 21Result Comment: [11/26/2016] [facility] 22Result Comment: [11/26/2016] [facility] 23Result Comment: [11/26/2016] [facility] 24Result Comment: [11/26/2016] [facility] 25Result Comment: [11/26/2016] [facility] 26Result Comment: [11/26/2016] [facility] 27Result Comment: [11/26/2016] [facility] 28Result Comment: [11/26/2016] [facility] 29Result Comment: [11/26/2016] [facility] 30Result Comment: [11/26/2016] [facility] 31Result Comment: [11/26/2016] [facility] 32Result Comment: [11/26/2016] [facility] 33Result Comment: [11/26/2016] [facility] Medications calcium (as carbonate) 500 mg oral tablet, chewable 1 tablet = 500 mg, Chew, Daily, # 150 tablet, 0 Refills, Maintenance, 11/28/21 16:18:00 EDT, Chew Tablet, Partial fill upon patient request if the prescription is for a schedule II opioid drug. Start Date: 11/28/21 Status: Ordered lidocaine 4% topical film 1 [...] opioid drug. Start Date: 02/03/21 Status: Ordered Nature's Bounty Probiotic oral tablet 1 tablet, By Mouth, Daily, 0 Refills, Maintenance, 11/28/21 16:19:00 EDT, Partial fill upon patientrequest if the prescription is for a schedule II opioid drug. Start Date: 11/28/21 Status: Ordered pantoprazole 40 mg oral delayed release tablet 1 tablet = 40 mg, By Mouth, 2 times a day, # 60 tablet, 0 Refills, Maintenance, 11/28/21 16:17:00 EDT, CR Tablet Start Date: 11/28/21 Status: Ordered Xifaxan 550 mg oral tablet 1 tablet = 550 mg, By Mouth, 3 times a day, # 42 tablet, 0 Refills, Maintenance, 11/28/21 16:17:00 EDT, Tablet, Partial fill upon patient request if the prescription is for a schedule II opioid drug. Start Date: 11/28/21 Stop Date: 12/12/21 Status: Ordered Problem List Condition Effective Dates [...]
--- OUTSIDE RECORDS SUMMARY | 2024-05-20 07:28 | XMS_ITS | Continuity of Care Document ---
Author Organization [facility] Ethan lt Address [address] [place] [address]- Care Team Providers Care Electrical And Instrument Engineer Name Role Phone Karthik HENLEY, Isaiah Douglas Primary Care Physician [phone] Encounter [facility] Date(s): 07/21/21 - 08/20/21 [facility] Adult [address] [place] [address]- Allergies, Adverse Reactions, Alerts Substance Reaction Severity [...] Given Parent Or Guardian Refuses 1Result Comment: [facility]-[id number] 2[facility] 3Result Comment: [11/26/2016] [facility] 4Result Comment: [11/26/2016] [facility] 5Result Comment: [11/26/2016] [facility] 6Result Comment: [11/26/2016] [facility] 7Result Comment: [11/26/2016] [facility] 8Result Comment: [11/26/2016] [facility] 9Result Comment: [11/26/2016] [facility] 10Result Comment: [11/26/2016] [facility] 11Result Comment: [11/26/2016] [facility] 12Result Comment: [11/26/2016] [facility] 13Result Comment: [11/26/2016] [facility] 14Result Comment: [11/26/2016] [facility] 15Result Comment: [11/26/2016] [facility] 16Result Comment: [11/26/2016] [facility] 17Result Comment: [11/26/2016] [facility] 18Result Comment: [11/26/2016] [facility] 19Result Comment: [11/26/2016] [facility] 20Result Comment: [11/26/2016] [facility] 21Result Comment: [11/26/2016] [facility] 22Result Comment: [11/26/2016] [facility] 23Result Comment: [11/26/2016] [facility] 24Result Comment: [11/26/2016] [facility] 25Result Comment: [11/26/2016] [facility] 26Result Comment: [11/26/2016] [facility] 27Result Comment: [11/26/2016] [facility] 28Result Comment: [11/26/2016] [facility] 29Result Comment: [11/26/2016] [facility] 30Result Comment: [11/26/2016] [facility] 31Result Comment: [11/26/2016] [facility] 32Result Comment: [11/26/2016] [facility] 33Result Comment: [11/26/2016] [facility] Medications lidocaine 4% topical film 1 [...]
--- OUTSIDE RECORDS SUMMARY | 2024-05-20 07:28 | XMS_ITS | Continuity of Care Document ---
Author Organization [facility] Ethan lt Address [address] [place] [address]- Care Team Providers Care Utility Hand Name Role Phone Karthik HENLEY, Isaiah Douglas Primary Care Physician [place] [facility] 08/29/21 - 09/28/21 [facility] Adult [address] [place] [address]- Allergies, Adverse Reactions, Alerts Substance Reaction Severity [...] Given Parent Or Guardian Refuses 1Result Comment: [facility]-[id number] 2Location History: [facility] [place] 3Result Comment: [11/26/2016] [facility] 4Result Comment: [11/26/2016] [facility] 5Result Comment: [11/26/2016] [facility] 6Result Comment: [11/26/2016] [facility] 7Result Comment: [11/26/2016] [facility] 8Result Comment: [11/26/2016] [facility] 9Result Comment: [11/26/2016] [facility] 10Result Comment: [11/26/2016] [facility] 11Result Comment: [11/26/2016] [facility] 12Result Comment: [11/26/2016] [facility] 13Result Comment: [11/26/2016] [facility] 14Result Comment: [11/26/2016] [facility] 15Result Comment: [11/26/2016] [facility] 16Result Comment: [11/26/2016] [facility] 17Result Comment: [11/26/2016] [facility] 18Result Comment: [11/26/2016] [facility] 19Result Comment: [11/26/2016] [facility] 20Result Comment: [11/26/2016] [facility] 21Result Comment: [11/26/2016] [facility] 22Result Comment: [11/26/2016] [facility] 23Result Comment: [11/26/2016] [facility] 24Result Comment: [11/26/2016] [facility] 25Result Comment: [11/26/2016] [facility] 26Result Comment: [11/26/2016] [facility] 27Result Comment: [11/26/2016] [facility] 28Result Comment: [11/26/2016] [facility] 29Result Comment: [11/26/2016] [facility] 30Result Comment: [11/26/2016] [facility] 31Result Comment: [11/26/2016] [facility] 32Result Comment: [11/26/2016] [facility] 33Result Comment: [11/26/2016] [facility] Medications lidocaine 4% topical film 1 [...]
--- OUTSIDE RECORDS SUMMARY | 2024-05-20 07:28 | XMS_ITS | Continuity of Care Document ---
Author Organization [facility] Address [address] [place] [address]- Care Team Providers Care Ballet Soloist Name Role Phone Karthik HENLEY, Isaiah Douglas Primary Care Physician Encounter [facility] Date(s): 10/17/20 - 11/16/20 [facility] [address] [place] [address]- Allergies, Adverse Reactions, Alerts Substance Reaction Severity [...] Given Parent Or Guardian Refuses 1Result Comment: [facility]-[id number] 2Location History: [facility] [place] 3Result Comment: [11/26/2016] [facility] 4Result Comment: [11/26/2016] [facility] 5Result Comment: [11/26/2016] [facility] 6Result Comment: [11/26/2016] [facility] 7Result Comment: [11/26/2016] [facility] 8Result Comment: [11/26/2016] [facility] 9Result Comment: [11/26/2016] [facility] 10Result Comment: [11/26/2016] [facility] 11Result Comment: [11/26/2016] [facility] 12Result Comment: [11/26/2016] [facility] 13Result Comment: [11/26/2016] [facility] 14Result Comment: [11/26/2016] [facility] 15Result Comment: [11/26/2016] [facility] 16Result Comment: [11/26/2016] [facility] 17Result Comment: [11/26/2016] [facility] 18Result Comment: [11/26/2016] [facility] 19Result Comment: [11/26/2016] [facility] 20Result Comment: [11/26/2016] [facility] 21Result Comment: [11/26/2016] [facility] 22Result Comment: [11/26/2016] [facility] 23Result Comment: [11/26/2016] [facility] 24Result Comment: [11/26/2016] [facility] 25Result Comment: [11/26/2016] [facility] 26Result Comment: [11/26/2016] [facility] 27Result Comment: [11/26/2016] [facility] 28Result Comment: [11/26/2016] [facility] 29Result Comment: [11/26/2016] [facility] 30Result Comment: [11/26/2016] [facility] 31Result Comment: [11/26/2016] [facility] 32Result Comment: [11/26/2016] [facility] 33Result Comment: [11/26/2016] [facility] Medications lidocaine 4% topical film 1 [...] day, # 60 tablet, 5 Refills, Maintenance, 04/25/19 17:03:21 EDT, Tablet Start Date: 12/11/18 Stop [...]
--- OUTSIDE RECORDS SUMMARY | 2024-05-20 07:28 | XMS_ITS | Continuity of Care Document ---
Author Organization [facility] Ethan lt Address [address] [place] [address]- Care Team Providers Care Former Hand Name Role Phone Karthik HENLEY, Isaiah Douglas Primary Care Physician Encounter [facility] Date(s): 01/16/23 - 02/15/23 [facility] Adult [address] [place] [address]- Allergies, Adverse Reactions, Alerts Substance Reaction Severity Status codeine 1 Surgical adhesive ta pe itching Active Adhesive Bandage 2 Rash Active riTUXimab 3 Severe Active 1hives 2surgical tape allergy as per family 3developed anaphylaxis with throat closure sensation and facial swelling needed brief epinephrine drip Immunizations Given and Recorded Vaccine Date Status Refusal Reason tetanus-diphtheria toxoids (Td) 1 08/15/22 Given [id number] bivalent booster vax 07/05/22 Recorded influenza virus [...] Given Parent Or Guardian Refuses 1Result Comment: [id number] 2Result Comment: [facility] [place] 3Result Comment: [facility] [place] [facility]]-[id number] 4Location History: [facility] [place] 5Result Comment: [11/26/2016] [facility] 6Result Comment: [11/26/2016] [facility] 7Result Comment: [11/26/2016] [facility] 8Result Comment: [11/26/2016] [facility] 9Result Comment: [11/26/2016] [facility] 10Result Comment: [11/26/2016] [facility] 11Result Comment: [11/26/2016] [facility] 12Result Comment: [11/26/2016] [facility] 13Result Comment: [11/26/2016] [facility] 14Result Comment: [11/26/2016] [facility] 15Result Comment: [11/26/2016] [facility] 16Result Comment: [11/26/2016] [facility] 17Result Comment: [11/26/2016] [facility] 18Result Comment: [11/26/2016] [facility] 19Result Comment: [11/26/2016] [facility] 20Result Comment: [11/26/2016] [facility] 21Result Comment: [11/26/2016] [facility] 22Result Comment: [11/26/2016] [facility] 23Result Comment: [11/26/2016] [facility] 24Result Comment: [11/26/2016] [facility] 25Result Comment: [11/26/2016] [facility] 26Result Comment: [11/26/2016] [facility] 27Result Comment: [11/26/2016] [facility] 28Result Comment: [11/26/2016] [facility] 29Result Comment: [11/26/2016] [facility] 30Result Comment: [11/26/2016] [facility] 31Result Comment: [11/26/2016] [facility] 32Result Comment: [11/26/2016] [facility] 33Result Comment: [11/26/2016] [facility] 34Result Comment: [11/26/2016] [facility] 35Result Comment: [11/26/2016] [facility] Medications Budesonide 1 mg, 1mg/2ml, Refills [...] Team Personnel Name: Margaux Vivas RN Position: [facility] RN Member Role: Primary Care Nurse Name: Live Leyva MD Position: [facility] Physician -Physician Practices Member Role: Lifetime Consulting Physician Name: Jeanmarie Lopez MD Position: [facility] Renal MD Member Role: Lifetime Consulting Physician Address: Address: [address] [place] [address], [address] [facility] [place] [address]- Name: Lashonda Clifford Position: [facility] Outreach Member Role: Lifetime Consulting Physician Name: Isaiah Angeles MD Position: [facility] Physician - Primary Care Member Role: PCP Address: Address: [address] [place] [address]- Name: Annalise Lara RN Position: S RN Member Role: Primary Care Nurse Name: Mark Wilkes MD Position: S Renal MD Member Role: Lifetime Consulting Physician Address: Address: [address] [place] [address] [facility] [address] Name: Bibiana Treviño RN Position: S RN Member Role: Primary Care Nurse Care Team Related Persons Name: MIRA MILLER Address: [place] [phone] Name: MIRA MILLER Address: [place] [phone] Name: MIRA MILLER Address: [place] [id number] Name: MIRA MILLER Address: [place] [phone] Name: MIRA MILLER Address: [place] [phone] Name: ANGELA MIRA Address: [place] [phone] Name: MIRA MILLER Address: [place] [phone] Name: PRATEEK MILLER Address: [address] [address] Name: BELEN MILLER Address: [address] [address] Name: BELEN MILLER Address: [address] [address]
--- OUTSIDE RECORDS SUMMARY | 2024-05-20 07:28 | XMS_ITS | Continuity of Care Document ---
Author Organization [facility] Address [address] [place] [address]- Care Team Providers Care Automotive Drivability Technician Name Role Phone Karthik HENLEY, Isaiah Douglas Primary Care Physician Encounter [facility] Date(s): 05/13/23 - 06/12/23 [facility] [place] [address] [place] [address]- Allergies, Adverse Reactions, Alerts Substance Reaction Severity [...] corded tetanus-diphtheria toxoids (Td) 10 08/15/22 Given [id number] bivalent booster vax 07/05/22 Recorded SARS-CoV-2 (COVID-19) [...] Comment: [facility] [place] 2Result Comment: [facility]-[id number] 3Location History: [facility] [place] 4Result Comment: [11/26/2016] [facility] 5Result Comment: [11/26/2016] [facility] 6Result Comment: [11/26/2016] [facility] 7Result Comment: [11/26/2016] [facility] 8Result Comment: [11/26/2016] [facility] 9Result Comment: [11/26/2016] [facility] 10Result Comment: [id number] 11Result Comment: [11/26/2016] [facility] 12Result Comment: [11/26/2016] [facility] 13Result Comment: [11/26/2016] [facility] 14Result Comment: [11/26/2016] [facility] 15Result Comment: [11/26/2016] [facility] 16Result Comment: [11/26/2016] [facility] 17Result Comment: [11/26/2016] [facility] 18Result Comment: [11/26/2016] [facility] 19Result Comment: [11/26/2016] [facility] 20Result Comment: [11/26/2016] [facility] 21Result Comment: [11/26/2016] [facility] 22Result Comment: [11/26/2016] [facility] 23Result Comment: [11/26/2016] [facility] 24Result Comment: [11/26/2016] [facility] 25Result Comment: [11/26/2016] [facility] 26Result Comment: [11/26/2016] [facility] 27Result Comment: [11/26/2016] [facility] 28Result Comment: [11/26/2016] [facility] 29Result Comment: [11/26/2016] [facility] 30Result Comment: [11/26/2016] [facility] 31Result Comment: [11/26/2016] [facility] 32Result Comment: [11/26/2016] [facility] 33Result Comment: [11/26/2016] [facility] 34Result Comment: [11/26/2016] [facility] 35Result Comment: [11/26/2016] [facility] Medications Flovent 110 mcg Inhaler HFA [...] drug. Start Date: 04/05/22 Status: Ordered levothyroxine 100 mcg/mL (0.1 mg/mL) oral solution 2 mL = 200 mcg, By Mouth, Daily, to be taken with the 25mcg liquid daily to total 225mcg daily, # 60 mL, 6 Refills, Maintenance, 05/02/23 12:03:00 EDT, [facility], Partial fill upon patient request if the prescription is for a schedule... Start Date: 05/02/23 Status: Ordered levothyroxine 25 mcg (0.025 mg)/mL oral solution 1 mL = 25 mcg, By Mouth, Daily, to be taken with the 200mcg liquid daily to total 225mcg daily, # 30 mL, 6 Refills, Maintenance, 05/02/23 12:01:00 EDT, [facility], Partial fill upon patient request if the prescription is for a schedule... Start Date: 05/02/23 Status: Ordered lidocaine 4% topical film 1 [...] Team Personnel Name: Margaux Vivas RN Position: [facility] RN Member Role: Primary Care Nurse Name: Live Leyva MD Position: [facility] Physician -Physician Practices Member Role: Lifetime Consulting Physician Name: Jeanmarie Lopez MD Position: [facility] Renal MD Member Role: Lifetime Consulting Physician Address: Address: [address] [place] [address], [address] [facility] [address] Name: Lashonda Clifford Position: [facility] Outreach Member Role: Lifetime Consulting Physician Name: Tiera Wadsworth RN Position: [facility] RN Member Role: Primary Care Nurse Name: Isaiah Angeles MD Position: [facility] Physician - Primary Care Member Role: PCP Address: Address: [address] [place] [phone]- [place] Name: Annalise Lara RN Position: S RN Member Role: Primary Care Nurse Name: Mark Wilkes MD Position: [facility] Renal MD Member Role: Lifetime Consulting Physician Address: Address: [address] [place] [address] [facility] [place] [address]- Name: Bibiana Treviño RN Position: [facility] RN Member Role: Primary Care Nurse Care Team Related Persons Name: MIRA MILLER Address: home [address] [place] [phone] Name: MIRA MILLER Address: [place] Address: home [address] [place] [address] Name: PRATEEK MILLER Address: home [address] [place] [address] Name: BELEN MILLER Address: home [address] [place] [address] Name: BELEN MILLER Address: home [address] [place] [address]
--- OUTSIDE RECORDS SUMMARY | 2024-05-20 07:29 | XMS_ITS | Continuity of Care Document ---
Author Organization [facility] Iain Ethan lt Address [address] [place] [address]- Care Team Providers Care Service Crew Leader Name Role Phone Karthik HENLEY, Isaiah Douglas Primary Care Physician [phone] Encounter [facility] Date(s): 07/13/20 - 08/12/20 [facility] Adult [address] [place] [address]- Allergies, Adverse Reactions, Alerts Substance Reaction Severity [...] Given Parent Or Guardian Refuses 1Result Comment: [facility]-[id number] 2Location History: [facility] [place] 3Result Comment: [11/26/2016] [facility] 4Result Comment: [11/26/2016] [facility] 5Result Comment: [11/26/2016] [facility] 6Result Comment: [11/26/2016] [facility] 7Result Comment: [11/26/2016] [facility] 8Result Comment: [11/26/2016] [facility] 9Result Comment: [11/26/2016] [facility] 10Result Comment: [11/26/2016] [facility] 11Result Comment: [11/26/2016] [facility] 12Result Comment: [11/26/2016] [facility] 13Result Comment: [11/26/2016] [facility] 14Result Comment: [11/26/2016] [facility] 15Result Comment: [11/26/2016] [facility] 16Result Comment: [11/26/2016] [facility] 17Result Comment: [11/26/2016] [facility] 18Result Comment: [11/26/2016] [facility] 19Result Comment: [11/26/2016] [facility] 20Result Comment: [11/26/2016] [facility] 21Result Comment: [11/26/2016] [facility] 22Result Comment: [11/26/2016] [facility] 23Result Comment: [11/26/2016] [facility] 24Result Comment: [11/26/2016] [facility] 25Result Comment: [11/26/2016] [facility] 26Result Comment: [11/26/2016] [facility] 27Result Comment: [11/26/2016] [facility] 28Result Comment: [11/26/2016] [facility] 29Result Comment: [11/26/2016] [facility] 30Result Comment: [11/26/2016] [facility] 31Result Comment: [11/26/2016] [facility] 32Result Comment: [11/26/2016] [facility] 33Result Comment: [11/26/2016] [facility] Medications carvedilol 12.5 mg oral tablet [...]
--- OUTSIDE RECORDS SUMMARY | 2024-05-20 07:29 | XMS_ITS | Continuity of Care Document ---
Author Organization [facility] Iain Ethan lt Address [address] [place] [address]- Care Team Providers Care Elementary School Band Director Name Role Phone Karthik HENLEY, Isaiah Douglas Primary Care Physician [phone] [facility] [facility] Date(s): 08/27/22 - 09/26/22 [facility] Adult [address] [place] [address]- Allergies, Adverse Reactions, Alerts Substance Reaction Severity Status codeine 1 Surgical adhesive ta pe itching Active Adhesive Bandage 2 Rash Active riTUXimab 3 Severe Active 1hives 2surgical tape allergy as per family 3developed anaphylaxis with throat closure sensation and facial swelling needed brief epinephrine drip Immunizations Given and Recorded Vaccine Date Status Refusal Reason tetanus-diphtheria toxoids (Td) 1 08/15/22 Given [id number] bivalent booster vax 07/05/22 Recorded influenza virus [...] Given Parent Or Guardian Refuses 1Result Comment: [id number] 2Result Comment: [facility] [place] 3Result Comment: [facility]-[id number] 4Location History: [facility] [place] 5Result Comment: [11/26/2016] [facility] 6Result Comment: [11/26/2016] [facility] 7Result Comment: [11/26/2016] [facility] 8Result Comment: [11/26/2016] [facility] 9Result Comment: [11/26/2016] [facility] 10Result Comment: [11/26/2016] [facility] 11Result Comment: [11/26/2016] [facility] 12Result Comment: [11/26/2016] [facility] 13Result Comment: [11/26/2016] [facility] 14Result Comment: [11/26/2016] [facility] 15Result Comment: [11/26/2016] [facility] 16Result Comment: [11/26/2016] [facility] 17Result Comment: [11/26/2016] [facility] 18Result Comment: [11/26/2016] [facility] 19Result Comment: [11/26/2016] [facility] 20Result Comment: [11/26/2016] [facility] 21Result Comment: [11/26/2016] [facility] 22Result Comment: [11/26/2016] [facility] 23Result Comment: [11/26/2016] [facility] 24Result Comment: [11/26/2016] [facility] 25Result Comment: [11/26/2016] [facility] 26Result Comment: [11/26/2016] [facility] 27Result Comment: [11/26/2016] [facility] 28Result Comment: [11/26/2016] [facility] 29Result Comment: [11/26/2016] [facility] 30Result Comment: [11/26/2016] [facility] 31Result Comment: [11/26/2016] [facility] 32Result Comment: [11/26/2016] [facility] 33Result Comment: [11/26/2016] [facility] 34Result Comment: [11/26/2016] [facility] 35Result Comment: [11/26/2016] [facility] Medications cholecalciferol 50 mcg (2000 intl [...] levothyroxine 150 mcg (0.15 mg) oral tablet See Instructions, 6.5 pills weekly, # 90 each, 3 Refills, Maintenance, 05/23/22 9:05:00 EDT, Tablet, [facility], this is an intentional change in dosing reflecting poor thyroid function. I am aware this is a big jump and it is intention... Start Date: 05/23/22 Status: Ordered lidocaine 4% [...] Team Personnel Name: Margaux Vivas RN Position: [facility] RN Member Role: Primary Care Nurse Name: Live Leyva MD Position: [facility] Physician -Physician Practices Member Role: Lifetime Consulting Physician Name: Jeanmarie Lopez MD Position: [facility] Renal MD Member Role: Lifetime Consulting Physician Address: Address: [address] [place] [address], [address] [facility] [address] Name: Lashonda Clifford Position: [facility] Outreach Member Role: Lifetime Consulting Physician Name: Tiera Wadsworth RN Position: [facility] RN Member Role: Primary Care Nurse Name: Isaiah Angeles MD Position: [facility] Primary Care Physician Member Role: PCP Address: Address: [address] [place] [address]- [place] Name: Annalise Lara RN Position: [facility] RN Member Role: Primary Care Nurse Name: Mark Wilkes MD Position: [facility] Renal MD Member Role: Lifetime Consulting Physician Address: Address: [address] [place] [address] [facility] [place] [address]- Name: Bibiana Treviño RN Position: [facility] RN Member Role: Primary Care Nurse Care Team Related Persons Name: MIRA MILLER Address: [place] [phone] Name: ANGELA MIRA Address: [place] [phone] Name: MIRA MILLER Address: [address] [phone] Name: ANGELA MIRA Address: [address] [phone] Name: ANGELA MIRA Address: [address] [phone] Name: ANGELA MIRA Address: [address] [phone] Name: MIRA MILLER Address: [address] [phone] Name: PRATEEK MILLER Address: [address] [address] Name: BELEN MILLER Address: [address] [address] Name: BELEN MILLER Address: [address] [address]
--- OUTSIDE RECORDS SUMMARY | 2024-05-20 07:29 | XMS_ITS | Continuity of Care Document ---
Author Organization [facility] Ethan lt Address [address] [place] [address]- Care Team Providers Care Prototype Fabricator Name Role Phone Karthik HENLEY, Isaiah Douglas Primary Care Physician Encounter [facility] Date(s): 11/02/22 - 12/02/22 [facility] Adult [address] [place] [address]- Allergies, Adverse Reactions, Alerts Substance Reaction Severity Status codeine 1 Surgical adhesive ta pe itching Active Adhesive Bandage 2 Rash Active riTUXimab 3 Severe Active 1hives 2surgical tape allergy as per family 3developed anaphylaxis with throat closure sensation and facial swelling needed brief epinephrine drip Immunizations Given and Recorded Vaccine Date Status Refusal Reason tetanus-diphtheria toxoids (Td) 1 08/15/22 Given [id number] bivalent booster vax 07/05/22 Recorded influenza virus [...] Given Parent Or Guardian Refuses 1Result Comment: [id number] 2Result Comment: [facility] [place] 3Result Comment: [facility]-[id number] 4Location History: [facility] [place] 5Result Comment: [11/26/2016] [facility] 6Result Comment: [11/26/2016] [facility] 7Result Comment: [11/26/2016] [facility] 8Result Comment: [11/26/2016] [facility] 9Result Comment: [11/26/2016] [facility] 10Result Comment: [11/26/2016] [facility] 11Result Comment: [11/26/2016] [facility] 12Result Comment: [11/26/2016] [facility] 13Result Comment: [11/26/2016] [facility] 14Result Comment: [11/26/2016] [facility] 15Result Comment: [11/26/2016] [facility] 16Result Comment: [11/26/2016] [facility] 17Result Comment: [11/26/2016] [facility] 18Result Comment: [11/26/2016] [facility] 19Result Comment: [11/26/2016] [facility] 20Result Comment: [11/26/2016] [facility] 21Result Comment: [11/26/2016] [facility] 22Result Comment: [11/26/2016] [facility] 23Result Comment: [11/26/2016] [facility] 24Result Comment: [11/26/2016] [facility] 25Result Comment: [11/26/2016] [facility] 26Result Comment: [11/26/2016] [facility] 27Result Comment: [11/26/2016] [facility] 28Result Comment: [11/26/2016] [facility] 29Result Comment: [11/26/2016] [facility] 30Result Comment: [11/26/2016] [facility] 31Result Comment: [11/26/2016] [facility] 32Result Comment: [11/26/2016] [facility] 33Result Comment: [11/26/2016] [facility] 34Result Comment: [11/26/2016] [facility] 35Result Comment: [11/26/2016] [facility] Medications cholecalciferol 50 mcg (2000 intl [...] Team Personnel Name: Margaux Vivas RN Position: [facility] RN Member Role: Primary Care Nurse Name: Live Leyva MD Position: [facility] Physician -Physician Practices Member Role: Lifetime Consulting Physician Name: Jeanmarie Lopez MD Position: [facility] Renal MD Member Role: Lifetime Consulting Physician Address: Address: [address] [place] [address], [facility] [address] [facility] [place] [address]- [place] Name: Lashonda Clifford Position: [facility] Outreach Member Role: Lifetime Consulting Physician Name: Tiera Wadsworth RN Position: [facility] RN Member Role: Primary Care Nurse Name: Isaiah Angeles MD Position: [facility] Primary Care Physician Member Role: PCP Address: Address: [address] [place] [address]- [place] Name: Annalise Lara RN Position: [facility] RN Member Role: Primary Care Nurse Name: Mark Wilkes MD Position: [facility] Renal MD Member Role: Lifetime Consulting Physician Address: Address: [address] [facility] [place] [address]- [place] Name: Bibiana Treviño RN Position: [facility] RN Member Role: Primary Care Nurse Care Team Related Persons Name: MIRA MILLER Address: [address] [id number] Name: MIRA MILLER Address: [address] [phone] Name: MIRA MILLER Address: [address] [phone] Name: MIRA MILLER Address: [address] [phone] Name: MIRA MILLER Address: [address] [phone] Name: MIRA MILLER Address: [address] [phone] Name: MIRA MILLER Address: [address] [phone] Name: PRATEEK MILLER Address: [address] [address] Name: BELEN MILLER Address: [address] [address] Name: BELEN MILLER Address: [address] [address]
--- OUTSIDE RECORDS SUMMARY | 2024-05-20 07:29 | XMS_ITS | Continuity of Care Document ---
Author Organization [facility] Ethan lt Address [address] [place] [address]- Care Team Providers Care Daycare Manager Name Role Phone Karthik HENLEY, Isaiah Douglas Primary Care Physician Encounter [facility] Date(s): 07/24/20 - 08/23/20 [facility] Adult [address] [place] [address]- Allergies, Adverse Reactions, Alerts Substance Reaction Severity [...] Parent Or Guardian Refuses 1Result Comment: [facility]-[id number] 2Location History: [facility] [place] 3Result Comment: [11/26/2016] [facility] 4Result Comment: [11/26/2016] [facility] 5Result Comment: [11/26/2016] [facility] 6Result Comment: [11/26/2016] [facility] 7Result Comment: [11/26/2016] [facility] 8Result Comment: [11/26/2016] [facility] 9Result Comment: [11/26/2016] [facility] 10Result Comment: [11/26/2016] [facility] 11Result Comment: [11/26/2016] [facility] 12Result Comment: [11/26/2016] [facility] 13Result Comment: [11/26/2016] [facility] 14Result Comment: [11/26/2016] [facility] 15Result Comment: [11/26/2016] [facility] 16Result Comment: [11/26/2016] [facility] 17Result Comment: [11/26/2016] [facility] 18Result Comment: [11/26/2016] [facility] 19Result Comment: [11/26/2016] [facility] 20Result Comment: [11/26/2016] [facility] 21Result Comment: [11/26/2016] [facility] 22Result Comment: [11/26/2016] [facility] 23Result Comment: [11/26/2016] [facility] 24Result Comment: [11/26/2016] [facility] 25Result Comment: [11/26/2016] [facility] 26Result Comment: [11/26/2016] [facility] 27Result Comment: [11/26/2016] [facility] 28Result Comment: [11/26/2016] [facility] 29Result Comment: [11/26/2016] [facility] 30Result Comment: [11/26/2016] [facility] 31Result Comment: [11/26/2016] [facility] 32Result Comment: [11/26/2016] [facility] 33Result Comment: [11/26/2016] [facility] Medications carvedilol 12.5 mg oral tablet [...]
--- OUTSIDE RECORDS SUMMARY | 2024-05-20 07:29 | XMS_ITS | Continuity of Care Document ---
Author Organization [facility] Address [address] [place] [address]- Care Team Providers Care Director Nursery School Name Role Phone Karthik HENLEY, Isaiah Douglas Primary Care Physician Encounter [facility] Date(s): 01/25/23 - 02/24/23 [facility] [address] [place] [address] Allergies, Adverse Reactions, Alerts Substance Reaction Severity Status codeine 1 Surgical adhesive ta pe itching Active Adhesive Bandage 2 Rash Active riTUXimab 3 Severe Active 1hives 2surgical tape allergy as per family 3developed anaphylaxis with throat closure sensation and facial swelling needed brief epinephrine drip Immunizations Given and Recorded Vaccine Date Status Refusal Reason tetanus-diphtheria toxoids (Td) 1 08/15/22 Given [id number] bivalent booster vax 07/05/22 Recorded influenza virus [...] Given Parent Or Guardian Refuses 1Result Comment: [id number] 2Result Comment: [facility] [place] 3Result Comment: [facility]-[id number] 4Location History: [facility] [place] 5Result Comment: [11/26/2016] [facility] 6Result Comment: [11/26/2016] [facility] 7Result Comment: [11/26/2016] [facility] 8Result Comment: [11/26/2016] [facility] 9Result Comment: [11/26/2016] [facility] 10Result Comment: [11/26/2016] [facility] 11Result Comment: [11/26/2016] [facility] 12Result Comment: [11/26/2016] [facility] 13Result Comment: [11/26/2016] [facility] 14Result Comment: [11/26/2016] [facility] 15Result Comment: [11/26/2016] [facility] 16Result Comment: [11/26/2016] [facility] 17Result Comment: [11/26/2016] [facility] 18Result Comment: [11/26/2016] [facility] 19Result Comment: [11/26/2016] [facility] 20Result Comment: [11/26/2016] [facility] 21Result Comment: [11/26/2016] [facility] 22Result Comment: [11/26/2016] [facility] 23Result Comment: [11/26/2016] [facility] 24Result Comment: [11/26/2016] [facility] 25Result Comment: [11/26/2016] [facility] 26Result Comment: [11/26/2016] [facility] 27Result Comment: [11/26/2016] [facility] 28Result Comment: [11/26/2016] [facility] 29Result Comment: [11/26/2016] [facility] 30Result Comment: [11/26/2016] [facility] 31Result Comment: [11/26/2016] [facility] 32Result Comment: [11/26/2016] [facility] 33Result Comment: [11/26/2016] [facility] 34Result Comment: [11/26/2016] [facility] 35Result Comment: [11/26/2016] [facility] Medications Budesonide 1 mg, 1mg/2ml, Refills [...] Team Personnel Name: Margaux Vivas RN Position: [facility] RN Member Role: Primary Care Nurse Name: Live Leyva MD Position: [facility] Physician -Physician Practices Member Role: Lifetime Consulting Physician Name: Jeanmarie Lopez MD Position: [facility] Renal MD Member Role: Lifetime Consulting Physician Address: Address: [address] [place] [address], [address] [facility] [place] [address]- Name: Lashonda Clifford Position: [facility] Outreach Member Role: Lifetime Consulting Physician Name: Isaiah Angeles MD Position: [facility] Physician - Primary Care Member Role: PCP Address: Address: [address] [place] [address]- Name: Annalise Lara RN Position: [facility] RN Member Role: Primary Care Nurse Name: Mark Wilkes MD Position: [facility] Ren[facility] MD Member Role: Lifetime Consulting Physician Address: Address: [address] [place] [address] [facility] [address] Name: Bibiana Treviño RN Position: [facility] RN Member Role: Primary Care Nurse Care Team Related Persons Name: MIRA MILLER Address: [place] [phone] Name: MIRA MILLER Address: [place] [phone] Name: MIRA MILLER Address: [place] [phone] Name: MIRA MILLER Address: [place] [phone] Name: MIRA MILLER Address: [place] [phone] Name: ANGELA MIRA Address: [place] [phone] Name: MIRA MILLER Address: [place] [phone] Name: PRATEEK MILLER Address: [address] [address] Name: ANGELA BELEN Address: [address] [address] Name: BELEN MILLER Address: [address] [address]
--- OUTSIDE RECORDS SUMMARY | 2024-05-20 07:29 | XMS_ITS | Continuity of Care Document ---
Author Organization [facility] Address [address] [place] [address]- Care Team Providers Care Nut Culler Name Role Phone Karthik HENLEY, Isaiah Douglas Primary Care Physician Encounter [facility] Date(s): 09/15/19 - 09/25/19 [facility] Adult [address] [place] [address]- [facility] Attending Physician: Admtr, [id number] Admitting Physician: Admtr, Ar8 Referring Physician: Admtr, Ar8 Allergies, Adverse Reactions, Alerts Substance Reaction Severity [...] Refuses 1Result Comment: [facility]-[id number] 2Location History: [facility] [place] 3Result Comment: [11/26/2016] [facility] 4Result Comment: [11/26/2016] [facility] 5Result Comment: [11/26/2016] [facility] 6Result Comment: [11/26/2016] [facility] 7Result Comment: [11/26/2016] [facility] 8Result Comment: [11/26/2016] [facility] 9Result Comment: [11/26/2016] [facility] 10Result Comment: [11/26/2016] [facility] 11Result Comment: [11/26/2016] [facility] 12Result Comment: [11/26/2016] [facility] 13Result Comment: [11/26/2016] [facility] 14Result Comment: [11/26/2016] [facility] 15Result Comment: [11/26/2016] [facility] 16Result Comment: [11/26/2016] [facility] 17Result Comment: [11/26/2016] [facility] 18Result Comment: [11/26/2016] [facility] 19Result Comment: [11/26/2016] [facility] 20Result Comment: [11/26/2016] [facility] 21Result Comment: [11/26/2016] [facility] 22Result Comment: [11/26/2016] [facility] 23Result Comment: [11/26/2016] [facility] 24Result Comment: [11/26/2016] [facility] 25Result Comment: [11/26/2016] [facility] 26Result Comment: [11/26/2016] [facility] 27Result Comment: [11/26/2016] [facility] 28Result Comment: [11/26/2016] [facility] 29Result Comment: [11/26/2016] [facility] 30Result Comment: [11/26/2016] [facility] 31Result Comment: [11/26/2016] [facility] 32Result Comment: [11/26/2016] [facility] 33Result Comment: [11/26/2016] [facility] Medications ferrous sulfate 325 mg oral tablet 1 tablet = 325 mg, By Mouth, Daily, # 30 tablet, 0 Refills, Maintenance, 07/28/19 17:11:38 EST Start Date: 07/28/19 Status: Ordered Flovent HFA 110 mcg/inh inhalation aerosol 2 puffs, Inhalation, 2 times a day, use without spacer, swallowed (not inhaled) for treatment of eosinophilic esophagitis, # 12 Gm, 3 Refills, Maintenance, 05/22/17 13:35:13, Aerosol Start Date: 05/22/17 Status: Ordered Furosemide Daily, 0 Refills, Maintenance, 08/14/19 8:07:00 EST Start Date: 08/14/19 Status: Ordered levothyroxine 0.2 mg oral tablet 1 tablet = 200 mcg, By Mouth, Daily, # 30 tablet, 11 Refills, Maintenance, 09/16/19 21:19:00 EST, Tablet, [facility], 152.4, cm, 09/15/19 15:49:00 EST, Height, 64, kg, 08/20/19 15:49:00 EST, Dry Weight Start Date: 09/16/19 Status: Ordered lisinopril 5 mg oral tablet 10 mg, 2, tablet, By Mouth, Daily, Refills 0, Maintenance, 08/21/19 14:48:00 EST Start Date: 08/21/19 Status: Ordered Percocet-5/325 325 mg-5 mg oral tablet 1, tablet, By Mouth, Every 6 hours, PRN, Refills 0, Tot. Refills 0, Maintenance, as needed for pain, 08/20/19 16:21:00 EST, Tablet, Partial fill upon patient request Start Date: 08/20/19 Status: Ordered PredniSONE = 20 mg, By Mouth, Daily, 0 Refills, Maintenance, 08/20/19 15:30:00 EST Start Date: 08/20/19 Status: Ordered Vimpat 50 mg oral tablet 1 tablet = 50 mg, By Mouth, 2 times a day, # 60 tablet, 5 Refills, Maintenance, 12/11/18 17:03:21 EDT, Tablet Start Date: 12/11/18 Stop Date: 06/09/19 Status: Ordered Zofran 4 mg oral tablet 1 tablet = 4 mg, By Mouth, Every 8 hours, PRN Nausea & Vomiting, # 20 tablet, 0 Refills, Maintenance, 02/24/19 14:38:46 EDT, Tablet Start Date: 02/24/19 Stop Date: 03/03/19 Status: Ordered Problem List Condition Effective Dates Status Health Status Inform ant Chiari malformation type I(Confirmed) Active Developmental delay(Confirmed)(Stable) Active Dysmorphic features(Confirmed)(Stable) Active EE (eosinophilic esophagitis)(Confirmed) Active Genetic disorder(Confirmed) Active Hypothyroidism(Confirmed) Active LLQ [...]
--- OUTSIDE RECORDS SUMMARY | 2024-05-20 07:29 | XMS_ITS | Continuity of Care Document ---
Author Organization [facility] Ethan lt Address [address] [place] [address]- Care Team Providers Care Brand Ambassador Promotional Model Name Role Phone Karthik HENLEY, Isaiah Douglas Primary Care Physician Encounter [facility] Date(s): 01/11/21 - 02/10/21 [facility] Adult [address] [place] [address]- Allergies, Adverse Reactions, Alerts Substance Reaction Severity [...] Given Parent Or Guardian Refuses 1Result Comment: [facility]-[id number] 2Location History: [facility] [place] 3Result Comment: [11/26/2016] [facility] 4Result Comment: [11/26/2016] [facility] 5Result Comment: [11/26/2016] [facility] 6Result Comment: [11/26/2016] [facility] 7Result Comment: [11/26/2016] [facility] 8Result Comment: [11/26/2016] [facility] 9Result Comment: [11/26/2016] [facility] 10Result Comment: [11/26/2016] [facility] 11Result Comment: [11/26/2016] [facility] 12Result Comment: [11/26/2016] [facility] 13Result Comment: [11/26/2016] [facility] 14Result Comment: [11/26/2016] [facility] 15Result Comment: [11/26/2016] [facility] 16Result Comment: [11/26/2016] [facility] 17Result Comment: [11/26/2016] [facility] 18Result Comment: [11/26/2016] [facility] 19Result Comment: [11/26/2016] [facility] 20Result Comment: [11/26/2016] [facility] 21Result Comment: [11/26/2016] [facility] 22Result Comment: [11/26/2016] [facility] 23Result Comment: [11/26/2016] [facility] 24Result Comment: [11/26/2016] [facility] 25Result Comment: [11/26/2016] [facility] 26Result Comment: [11/26/2016] [facility] 27Result Comment: [11/26/2016] [facility] 28Result Comment: [11/26/2016] [facility] 29Result Comment: [11/26/2016] [facility] 30Result Comment: [11/26/2016] [facility] 31Result Comment: [11/26/2016] [facility] 32Result Comment: [11/26/2016] [facility] 33Result Comment: [11/26/2016] [facility] Medications levothyroxine 125 mcg (0.125 mg) [...]
--- OUTSIDE RECORDS SUMMARY | 2024-05-20 07:29 | XMS_ITS | Continuity of Care Document ---
Author Organization [facility] Ethan lt Address [address] [place] [address]- Care Team Providers Care Freight Receiver Name Role Phone Karthik HENLEY, Isaiah Douglas Primary Care Physician Encounter [facility] [place] Date(s): 05/02/21 - 06/01/21 [facility] Adult [address] [place] [address]- Allergies, Adverse Reactions, Alerts Substance Reaction Severity [...] Given Parent Or Guardian Refuses 1Result Comment: [facility]-[id number] 2Location History: [facility] [place] 3Result Comment: [11/26/2016] [facility] 4Result Comment: [11/26/2016] [facility] 5Result Comment: [11/26/2016] [facility] 6Result Comment: [11/26/2016] [facility] 7Result Comment: [11/26/2016] [facility] 8Result Comment: [11/26/2016] [facility] 9Result Comment: [11/26/2016] [facility] 10Result Comment: [11/26/2016] [facility] 11Result Comment: [11/26/2016] [facility] 12Result Comment: [11/26/2016] [facility] 13Result Comment: [11/26/2016] [facility] 14Result Comment: [11/26/2016] [facility] 15Result Comment: [11/26/2016] [facility] 16Result Comment: [11/26/2016] [facility] 17Result Comment: [11/26/2016] [facility] 18Result Comment: [11/26/2016] [facility] 19Result Comment: [11/26/2016] [facility] 20Result Comment: [11/26/2016] [facility] 21Result Comment: [11/26/2016] [facility] 22Result Comment: [11/26/2016] [facility] 23Result Comment: [11/26/2016] [facility] 24Result Comment: [11/26/2016] [facility] 25Result Comment: [11/26/2016] [facility] 26Result Comment: [11/26/2016] [facility] 27Result Comment: [11/26/2016] [facility] 28Result Comment: [11/26/2016] [facility] 29Result Comment: [11/26/2016] [facility] 30Result Comment: [11/26/2016] [facility] 31Result Comment: [11/26/2016] [facility] 32Result Comment: [11/26/2016] [facility] 33Result Comment: [11/26/2016] [facility] Medications levothyroxine 125 mcg (0.125 mg) [...]
--- OUTSIDE RECORDS SUMMARY | 2024-05-20 07:29 | XMS_ITS | Continuity of Care Document ---
Author Organization [facility] Ethan lt Address [address] [place] [address]- Care Team Providers Care Grain Trimmer Name Role Phone Karthik HENLEY, Isaiah Douglas Primary Care Physician [phone] [place] [facility] [place] 09/07/23 [facility] Adult [address] [place] [address]- Allergies, Adverse Reactions, Alerts Substance Reaction Severity [...] corded tetanus-diphtheria toxoids (Td) 10 08/15/22 Given [id number] bivalent booster vax 07/05/22 Recorded SARS-CoV-2 (COVID-19) [...] Comment: [facility] [place] 2Result Comment: [facility]-[id number] 3Location History: [facility] [place] 4Result Comment: [11/26/2016] [facility] 5Result Comment: [11/26/2016] [facility] 6Result Comment: [11/26/2016] [facility] 7Result Comment: [11/26/2016] [facility] 8Result Comment: [11/26/2016] [facility] 9Result Comment: [11/26/2016] [facility] 10Result Comment: [id number] 11Result Comment: [11/26/2016] [facility] 12Result Comment: [11/26/2016] [facility] 13Result Comment: [11/26/2016] [facility] 14Result Comment: [11/26/2016] [facility] 15Result Comment: [11/26/2016] [facility] 16Result Comment: [11/26/2016] [facility] 17Result Comment: [11/26/2016] [facility] 18Result Comment: [11/26/2016] [facility] 19Result Comment: [11/26/2016] [facility] 20Result Comment: [11/26/2016] [facility] 21Result Comment: [11/26/2016] [facility] 22Result Comment: [11/26/2016] [facility] 23Result Comment: [11/26/2016] [facility] 24Result Comment: [11/26/2016] [facility] 25Result Comment: [11/26/2016] [facility] 26Result Comment: [11/26/2016] [facility] 27Result Comment: [11/26/2016] [facility] 28Result Comment: [11/26/2016] [facility] 29Result Comment: [11/26/2016] [facility] 30Result Comment: [11/26/2016] [facility] 31Result Comment: [11/26/2016] [facility] 32Result Comment: [11/26/2016] [facility] 33Result Comment: [11/26/2016] [facility] 34Result Comment: [11/26/2016] [facility] 35Result Comment: [11/26/2016] [facility] Medications [...] Team Personnel Name: Live Leyva MD Position: [facility] Physician -Physician Practices Member Role: Lifetime Consulting Physician Name: Jeanmarie Lopez MD Position: [facility] Renal MD Member Role: Lifetime Consulting Physician Address: Address: [address] [place] [address] [address] [place] [address]- Name: Lashonda Clifford Position: [facility] Outreach Member Role: Lifetime Consulting Physician Name: Tiera Wadsworth RN Position: [facility] RN Member Role: Primary Care Nurse Name: Isaiah Angeles MD Position: [facility] Physician - Primary Care Member Role: PCP Address: Address: [address] [place] [address]- [place] Name: Annalise Lara RN Position: S RN Member Role: Primary Care Nurse Name: Mark Wilkes MD Position: [facility] Renal MD Member Role: Lifetime Consulting Physician Address: Address: [address] [place] [address] [facility] [place] [address]- Name: iBbiana Treviño RN Position: [facility] RN Member Role: Primary Care Nurse Care Team Related Persons Name: MIRA MILLER Address: [place] Address: home [address] [place] [address] [place] Name: MIRA MILLER Address: home [address] [phone] Name: PRATEEK MILLER Address: home [address] [place] [address] Name: BELEN MILLER Address: home [address] [place] [address] Name: BELEN MILLER Address: home [address] [place] [address]
--- OUTSIDE RECORDS SUMMARY | 2024-05-20 07:29 | XMS_ITS | Continuity of Care Document ---
Author Organization [facility] Ethan lt Address [address] [place] [address]- Care Team Providers Care Examination Supervisor Name Role Phone Karthik HENLEY, Isaiah Douglas Primary Care Physician [facility] [place] Date(s): 07/13/20 - 08/12/20 [facility] Adult [address] [place] [address]- Allergies, Adverse Reactions, Alerts Substance Reaction Severity [...] Given Parent Or Guardian Refuses 1Result Comment: [facility]-[id number] 2Location History: [facility] [place] 3Result Comment: [11/26/2016] [facility] 4Result Comment: [11/26/2016] [facility] 5Result Comment: [11/26/2016] [facility] 6Result Comment: [11/26/2016] [facility] 7Result Comment: [11/26/2016] [facility] 8Result Comment: [11/26/2016] [facility] 9Result Comment: [11/26/2016] [facility] 10Result Comment: [11/26/2016] [facility] 11Result Comment: [11/26/2016] [facility] 12Result Comment: [11/26/2016] [facility] 13Result Comment: [11/26/2016] [facility] 14Result Comment: [11/26/2016] [facility] 15Result Comment: [11/26/2016] [facility] 16Result Comment: [11/26/2016] [facility] 17Result Comment: [11/26/2016] [facility] 18Result Comment: [11/26/2016] [facility] 19Result Comment: [11/26/2016] [facility] 20Result Comment: [11/26/2016] [facility] 21Result Comment: [11/26/2016] [facility] 22Result Comment: [11/26/2016] [facility] 23Result Comment: [11/26/2016] [facility] 24Result Comment: [11/26/2016] [facility] 25Result Comment: [11/26/2016] [facility] 26Result Comment: [11/26/2016] [facility] 27Result Comment: [11/26/2016] [facility] 28Result Comment: [11/26/2016] [facility] 29Result Comment: [11/26/2016] [facility] 30Result Comment: [11/26/2016] [facility] 31Result Comment: [11/26/2016] [facility] 32Result Comment: [11/26/2016] [facility] 33Result Comment: [11/26/2016] [facility] Medications carvedilol 12.5 mg oral tablet [...]
--- OUTSIDE RECORDS SUMMARY | 2024-05-20 07:29 | XMS_ITS | Continuity of Care Document ---
Author Organization [facility] Address [address] [place] [address]- Care Team Providers Care Loan Consultant Name Role Phone Karthik HENLEY, Isaiah Douglas Primary Care Physician [phone] Encounter [facility] Date(s): 05/05/20 - 06/04/20 [facility] [address] [place] [address]- [facility] Allergies, Adverse Reactions, Alerts Substance Reaction Severity [...] Given Parent Or Guardian Refuses 1Result Comment: [facility]-[id number] 2Location History: [facility] [place] 3Result Comment: [11/26/2016] [facility] 4Result Comment: [11/26/2016] [facility] 5Result Comment: [11/26/2016] [facility] 6Result Comment: [11/26/2016] [facility] 7Result Comment: [11/26/2016] [facility] 8Result Comment: [11/26/2016] [facility] 9Result Comment: [11/26/2016] [facility] 10Result Comment: [11/26/2016] [facility] 11Result Comment: [11/26/2016] [facility] 12Result Comment: [11/26/2016] [facility] 13Result Comment: [11/26/2016] [facility] 14Result Comment: [11/26/2016] [facility] 15Result Comment: [11/26/2016] [facility] 16Result Comment: [11/26/2016] [facility] 17Result Comment: [11/26/2016] [facility] 18Result Comment: [11/26/2016] [facility] 19Result Comment: [11/26/2016] [facility] 20Result Comment: [11/26/2016] [facility] 21Result Comment: [11/26/2016] [facility] 22Result Comment: [11/26/2016] [facility] 23Result Comment: [11/26/2016] [facility] 24Result Comment: [11/26/2016] [facility] 25Result Comment: [11/26/2016] [facility] 26Result Comment: [11/26/2016] [facility] 27Result Comment: [11/26/2016] [facility] 28Result Comment: [11/26/2016] [facility] 29Result Comment: [11/26/2016] [facility] 30Result Comment: [11/26/2016] [facility] 31Result Comment: [11/26/2016] [facility] 32Result Comment: [11/26/2016] [facility] 33Result Comment: [11/26/2016] [facility] Medications Flovent HFA 110 mcg/inh inhalation aerosol 2 puffs, Inhalation, 2 times a day, use without spacer, swallowed (not inhaled) for treatment of eosinophilic esophagitis, # 12 Gm, 3 Refills, Maintenance, 03/08/20 13:51:00 EDT, Aerosol, [facility], 153, cm, 03/01/20 14:05:00 EDT, Heig... Start Date: 03/08/20 Status: Ordered furosemide 20 mg oral tablet 20 mg, 1, tablet, By Mouth, Daily, # 30 tablet, Refills 0, Tot. Refills 0, Maintenance, 10/22/19 13:43:00 EST, Do Not Route Start Date: 10/22/19 Status: Ordered levothyroxine 0.2 mg oral tablet 1 tablet = 200 mcg, By Mouth, Daily, # 90 tablet, 4 Refills, Maintenance, 02/26/20 12:05:00 EDT, Tablet, [facility], 153, cm, 02/26/20 12:03:00 EDT, Height, 62, kg, 01/02/20 11:03:00 EDT, Dry Weight Start Date: 02/26/20 Status: Ordered lisinopril 20 mg oral tablet 20 mg, 1, tablet, By Mouth, Daily, # 30 tablet, Refills 0, Tot. Refills 0, Maintenance, 05/05/20 7:46:00 EDT, Route to Pharmacy Electronically, [facility], 153, cm, 05/05/20 7:32:00 EDT, Height, 62, kg, 01/02/20 11:03:00 EDT, Dry Weight Start Date: 05/05/20 Status: Ordered Vimpat 50 mg oral tablet [...]
--- OUTSIDE RECORDS SUMMARY | 2024-05-20 07:29 | XMS_ITS | Continuity of Care Document ---
Author Organization [facility] Ethan lt Address [address] [place] [address]- Care Team Providers Care Clothing Presser Name Role Phone Karthik HENLEY, Isaiah Douglas Primary Care Physician [place] [facility] [place] 10/22/22 - 11/21/22 [facility] Adult [address] [place] [address]- Allergies, Adverse Reactions, Alerts Substance Reaction Severity Status codeine 1 Surgical adhesive ta pe itching Active Adhesive Bandage 2 Rash Active riTUXimab 3 Severe Active 1hives 2surgical tape allergy as per family 3developed anaphylaxis with throat closure sensation and facial swelling needed brief epinephrine drip Immunizations Given and Recorded Vaccine Date Status Refusal Reason tetanus-diphtheria toxoids (Td) 1 08/15/22 Given [id number] bivalent booster vax 07/05/22 Recorded influenza virus [...] Given Parent Or Guardian Refuses 1Result Comment: [id number] 2Result Comment: [facility] [place] 3Result Comment: [facility]-[id number] 4Location History: [facility] [place] 5Result Comment: [11/26/2016] [facility] 6Result Comment: [11/26/2016] [facility] 7Result Comment: [11/26/2016] [facility] 8Result Comment: [11/26/2016] [facility] 9Result Comment: [11/26/2016] [facility] 10Result Comment: [11/26/2016] [facility] 11Result Comment: [11/26/2016] [facility] 12Result Comment: [11/26/2016] [facility] 13Result Comment: [11/26/2016] [facility] 14Result Comment: [11/26/2016] [facility] 15Result Comment: [11/26/2016] [facility] 16Result Comment: [11/26/2016] [facility] 17Result Comment: [11/26/2016] [facility] 18Result Comment: [11/26/2016] [facility] 19Result Comment: [11/26/2016] [facility] 20Result Comment: [11/26/2016] [facility] 21Result Comment: [11/26/2016] [facility] 22Result Comment: [11/26/2016] [facility] 23Result Comment: [11/26/2016] [facility] 24Result Comment: [11/26/2016] [facility] 25Result Comment: [11/26/2016] [facility] 26Result Comment: [11/26/2016] [facility] 27Result Comment: [11/26/2016] [facility] 28Result Comment: [11/26/2016] [facility] 29Result Comment: [11/26/2016] [facility] 30Result Comment: [11/26/2016] [facility] 31Result Comment: [11/26/2016] [facility] 32Result Comment: [11/26/2016] [facility] 33Result Comment: [11/26/2016] [facility] 34Result Comment: [11/26/2016] [facility] 35Result Comment: [11/26/2016] [facility] Medications cholecalciferol 50 mcg (2000 intl [...] Care Nurse Name: Live Leyva MD Position: [facility] Physician -Physician Practices Member Role: Lifetime Consulting Physician Name: Jeanmarie Lopez MD Position: [facility] Renal MD Member Role: Lifetime Consulting Physician Address: Address: [address] [place] [address], [address] [facility] [place] [address]- [place] Name: Lashonda Clifford Position: [facility] Outreach Member Role: Lifetime Consulting Physician Name: Tiera Wadsworth RN Position: [facility] RN Member Role: Primary Care Nurse Name: Isaiah Angeles MD Position: [facility] Primary Care Physician Member Role: PCP Address: Address: [address] [place] [address]- [place] Name: Annalise Lara RN Position: [facility] RN Member Role: Primary Care Nurse Name: Mark Wilkes MD Position: [facility] Renal MD Member Role: Lifetime Consulting Physician Address: Address: [address] [facility] [place] [address]- [place] Name: Bibiana Treviño RN Position: [facility] RN Member Role: Primary Care Nurse Care Team Related Persons Name: MIRA MILLER Address: [address] [phone] Name: AKASHMIRA CARTY Address: [address] [phone] Name: AKASHMIRA CARTY Address: [address] [phone] Name: AKASHCLAUDETTE CARTYE Address: [address] [phone] Name: MIRA MILLER Address: [address] [phone] Name: AKASHRICARDOJANETHCLAUDETTEE Address: [address] [phone] Name: AKASHMIRA CARTY Address: [address] [phone] Name: PRATEEK MILLER Address: [address] [address] Name: BELEN MILLER Address: home [address] [place] [phone] Name: BELEN MILLER Address: [address] [address]
--- OUTSIDE RECORDS SUMMARY | 2024-05-20 07:29 | XMS_ITS | Continuity of Care Document ---
Author Organization [facility] Address [address] [place] [address]- Care Team Providers Care Manager Customer Name Role Phone Karthik HENLEY, Isaiah Douglas Primary Care Physician Encounter [facility] [place] Date(s): 06/13/21 - 07/13/21 [facility] [address] [place] [address]- Allergies, Adverse Reactions, Alerts Substance Reaction Severity [...] Given Parent Or Guardian Refuses 1Result Comment: [facility]-[id number] 2Location History: [facility] 3Result Comment: [11/26/2016] [facility] 4Result Comment: [11/26/2016] [facility] 5Result Comment: [11/26/2016] [facility] 6Result Comment: [11/26/2016] [facility] 7Result Comment: [11/26/2016] [facility] 8Result Comment: [11/26/2016] [facility] 9Result Comment: [11/26/2016] [facility] 10Result Comment: [11/26/2016] [facility] 11Result Comment: [11/26/2016] [facility] 12Result Comment: [11/26/2016] [facility] 13Result Comment: [11/26/2016] [facility] 14Result Comment: [11/26/2016] [facility] 15Result Comment: [11/26/2016] [facility] 16Result Comment: [11/26/2016] [facility] 17Result Comment: [11/26/2016] [facility] 18Result Comment: [11/26/2016] [facility] 19Result Comment: [11/26/2016] [facility] 20Result Comment: [11/26/2016] [facility] 21Result Comment: [11/26/2016] [facility] 22Result Comment: [11/26/2016] [facility] 23Result Comment: [11/26/2016] [facility] 24Result Comment: [11/26/2016] [facility] 25Result Comment: [11/26/2016] [facility] 26Result Comment: [11/26/2016] [facility] 27Result Comment: [11/26/2016] [facility] 28Result Comment: [11/26/2016] [facility] 29Result Comment: [11/26/2016] [facility] 30Result Comment: [11/26/2016] [facility] 31Result Comment: [11/26/2016] [facility] 32Result Comment: [11/26/2016] [facility] 33Result Comment: [11/26/2016] [facility] Medications lidocaine 4% topical film 1 [...]
--- OUTSIDE RECORDS SUMMARY | 2024-05-20 07:29 | XMS_ITS | Continuity of Care Document ---
Author Organization [facility] Ethan lt Address [address] [place] [address]- Care Team Providers Care Superintendent Board Mill Name Role Phone Karthik HENLEY, Isaiah Douglas Primary Care Physician [place] [facility] [place]21 [facility] Adult [address] [place] [address]- Allergies, Adverse Reactions, Alerts Substance Reaction Severity [...] Given Parent Or Guardian Refuses 1Result Comment: [facility]-[id number] 2Location History[facility] 3Result Comment: [11/26/2016] [facility] 4Result Comment: [11/26/2016] [facility] 5Result Comment: [11/26/2016] [facility] 6Result Comment: [11/26/2016] [facility] 7Result Comment: [11/26/2016] [facility] 8Result Comment: [11/26/2016] [facility] 9Result Comment: [11/26/2016] [facility] 10Result Comment: [11/26/2016] [facility] 11Result Comment: [11/26/2016] [facility] 12Result Comment: [11/26/2016] [facility] 13Result Comment: [11/26/2016] [facility] 14Result Comment: [11/26/2016] [facility] 15Result Comment: [11/26/2016] [facility] 16Result Comment: [11/26/2016] [facility] 17Result Comment: [11/26/2016] [facility] 18Result Comment: [11/26/2016] [facility] 19Result Comment: [11/26/2016] [facility] 20Result Comment: [11/26/2016] [facility] 21Result Comment: [11/26/2016] [facility] 22Result Comment: [11/26/2016] [facility] 23Result Comment: [11/26/2016] [facility] 24Result Comment: [11/26/2016] [facility] 25Result Comment: [11/26/2016] [facility] 26Result Comment: [11/26/2016] [facility] 27Result Comment: [11/26/2016] [facility] 28Result Comment: [11/26/2016] [facility] 29Result Comment: [11/26/2016] [facility] 30Result Comment: [11/26/2016] [facility] 31Result Comment: [11/26/2016] [facility] 32Result Comment: [11/26/2016] [facility] 33Result Comment: [11/26/2016] [facility] Medications levothyroxine 125 mcg (0.125 mg) [...]
--- OUTSIDE RECORDS SUMMARY | 2024-05-20 07:29 | XMS_ITS | Continuity of Care Document ---
Author Organization [facility] Ethan lt Address [address] [place] [address]- Care Team Providers Care Boat And Plant Utility Supervisor Name Role Phone Karthik HENLEY, Isaiah Douglas Primary Care Physician Encounter [facility] [place] Date(s): 07/24/21 - 08/23/21 [facility] Adult [address] [place] [address]- Allergies, Adverse Reactions, Alerts Substance Reaction Severity [...] Parent Or Guardian Refuses 1Result Comment: [facility]-[id number] 2Location History: [facility] [place] 3Result Comment: [11/26/2016] [facility] 4Result Comment: [11/26/2016] [facility] 5Result Comment: [11/26/2016] [facility] 6Result Comment: [11/26/2016] [facility] 7Result Comment: [11/26/2016] [facility] 8Result Comment: [11/26/2016] [facility] 9Result Comment: [11/26/2016] [facility] 10Result Comment: [11/26/2016] [facility] 11Result Comment: [11/26/2016] [facility] 12Result Comment: [11/26/2016] [facility] 13Result Comment: [11/26/2016] [facility] 14Result Comment: [11/26/2016] [facility] 15Result Comment: [11/26/2016] [facility] 16Result Comment: [11/26/2016] [facility] 17Result Comment: [11/26/2016] [facility] 18Result Comment: [11/26/2016] [facility] 19Result Comment: [11/26/2016] [facility] 20Result Comment: [11/26/2016] [facility] 21Result Comment: [11/26/2016] [facility] 22Result Comment: [11/26/2016] [facility] 23Result Comment: [11/26/2016] [facility] 24Result Comment: [11/26/2016] [facility] 25Result Comment: [11/26/2016] [facility] 26Result Comment: [11/26/2016] [facility] 27Result Comment: [11/26/2016] [facility] 28Result Comment: [11/26/2016] [facility] 29Result Comment: [11/26/2016] [facility] 30Result Comment: [11/26/2016] [facility] 31Result Comment: [11/26/2016] [facility] 32Result Comment: [11/26/2016] [facility] 33Result Comment: [11/26/2016] [facility] Medications lidocaine 4% topical film 1 [...]
--- OUTSIDE RECORDS SUMMARY | 2024-05-20 07:29 | XMS_ITS | Continuity of Care Document ---
Author Organization [facility] Iain Ethan lt Address [address] [place] [address]- Care Team Providers Care Rn Managed Care Name Role Phone Karthik HENLEY, Isaiah Douglas Primary Care Physician [phone] Encounter [facility] Date(s): 03/25/20 - 04/24/20 [facility] Adult [address] [place] [address] Allergies, Adverse Reactions, Alerts Substance Reaction [...] Given Parent Or Guardian Refuses 1Result Comment: [facility]-[id number] 2Location History: [facility] [place] 3Result Comment: [11/26/2016] [facility] 4Result Comment: [11/26/2016] [facility] 5Result Comment: [11/26/2016] [facility] 6Result Comment: [11/26/2016] [facility] 7Result Comment: [11/26/2016] [facility] 8Result Comment: [11/26/2016] [facility] 9Result Comment: [11/26/2016] [facility] 10Result Comment: [11/26/2016] [facility] 11Result Comment: [11/26/2016] [facility] 12Result Comment: [11/26/2016] [facility] 13Result Comment: [11/26/2016] [facility] 14Result Comment: [11/26/2016] [facility] 15Result Comment: [11/26/2016] [facility] 16Result Comment: [11/26/2016] [facility] 17Result Comment: [11/26/2016] [facility] 18Result Comment: [11/26/2016] [facility] 19Result Comment: [11/26/2016] [facility] 20Result Comment: [11/26/2016] [facility] 21Result Comment: [11/26/2016] [facility] 22Result Comment: [11/26/2016] [facility] 23Result Comment: [11/26/2016] [facility] 24Result Comment: [11/26/2016] [facility] 25Result Comment: [11/26/2016] [facility] 26Result Comment: [11/26/2016] [facility] 27Result Comment: [11/26/2016] [facility] 28Result Comment: [11/26/2016] [facility] 29Result Comment: [11/26/2016] [facility] 30Result Comment: [11/26/2016] [facility] 31Result Comment: [11/26/2016] [facility] 32Result Comment: [11/26/2016] [facility] 33Result Comment: [11/26/2016] [facility] Medications acetaminophen-oxyCODONE 325 mg-5 mg oral tablet 1, tablet, By Mouth, Every 6 hours, PRN, # 20 tablet, Refills 0, Tot. Refills 0, Acute, as needed for pain, 04/25/20 22:00:00 EDT, 03/28/20 21:50:00 EDT, Route to Pharmacy Electronically, [id number] Tablet, Partial fill upon patient req... Start Date: 03/28/20 Stop Date: 04/25/20 Status: Ordered Flovent HFA 110 mcg/inh inhalation [...] Weight Start Date: 02/26/20 Status: Ordered lisinopril 2.5 mg oral tablet 2.5 mg, 1, tablet, By Mouth, Daily, # 30 tablet, Refills 0, Tot. Refills 0, Maintenance, 03/01/20 14:30:00 EDT, Do Not Route Start Date: 03/01/20 Status: Ordered Vimpat 50 mg oral tablet [...]
--- OUTSIDE RECORDS SUMMARY | 2024-05-20 07:29 | XMS_ITS | Continuity of Care Document ---
Author Organization [facility] Ethan lt Address [address] [place] [address]- Care Team Providers Care Insulation Nozzleman Name Role Phone Karthik HENLEY, Isaiah Douglas Primary Care Physician [phone] [place] [facility] 11[place]19/21 [facility] Adult [address] [place] [address]- Allergies, Adverse Reactions, Alerts Substance Reaction Severity [...] Refuses 1Result Comment: [facility]-[id number] 2Location History: [facility] [place] 3Result Comment: [11/26/2016] [facility] 4Result Comment: [11/26/2016] [facility] 5Result Comment: [11/26/2016] [facility] 6Result Comment: [11/26/2016] [facility] 7Result Comment: [11/26/2016] [facility] 8Result Comment: [11/26/2016] [facility] 9Result Comment: [11/26/2016] [facility] 10Result Comment: [11/26/2016] [facility] 11Result Comment: [11/26/2016] [facility] 12Result Comment: [11/26/2016] [facility] 13Result Comment: [11/26/2016] [facility] 14Result Comment: [11/26/2016] [facility] 15Result Comment: [11/26/2016] [facility] 16Result Comment: [11/26/2016] [facility] 17Result Comment: [11/26/2016] [facility] 18Result Comment: [11/26/2016] [facility] 19Result Comment: [11/26/2016] [facility] 20Result Comment: [11/26/2016] [facility] 21Result Comment: [11/26/2016] [facility] 22Result Comment: [11/26/2016] [facility] 23Result Comment: [11/26/2016] [facility] 24Result Comment: [11/26/2016] [facility] 25Result Comment: [11/26/2016] [facility] 26Result Comment: [11/26/2016] [facility] 27Result Comment: [11/26/2016] [facility] 28Result Comment: [11/26/2016] [facility] 29Result Comment: [11/26/2016] [facility] 30Result Comment: [11/26/2016] [facility] 31Result Comment: [11/26/2016] [facility] 32Result Comment: [11/26/2016] [facility] 33Result Comment: [11/26/2016] [facility] Medications lidocaine 4% topical film 1 [...]
--- OUTSIDE RECORDS SUMMARY | 2024-05-20 07:29 | XMS_ITS | Continuity of Care Document ---
Author Organization [facility] Address [address] [place] [address]- Care Team Providers Care Underground Mine Superintendent Name Role Phone Karthik HENLEY, Isaiah Douglas Primary Care Physician [place] [facility] 08/06/23 - 09/05/23 [facility] [address] [place] [address]- Allergies, Adverse Reactions, Alerts Substance Reaction Severity Status codeine 1 Surgical adhesive ta pe itching Active riTUXimab 2 Severe Active Adhesive Bandage 3 Rash Active 1hives 2developed anaphylaxis with throat closure sensation and facial swelling needed brief epinephrine drip 3surgical tape allergy as per family Immunizations Given and Recorded Vaccine Date Status [...] corded tetanus-diphtheria toxoids (Td) 10 08/15/22 Given [id number] bivalent booster vax 07/05/22 Recorded SARS-CoV-2 (COVID-19) [...] Comment: [facility] [place] 2Result Comment: [facility]-[id number] 3Location History: [facility] [place] 4Result Comment: [11/26/2016] [facility] 5Result Comment: [11/26/2016] [facility] 6Result Comment: [11/26/2016] [facility] 7Result Comment: [11/26/2016] [facility] 8Result Comment: [11/26/2016] [facility] 9Result Comment: [11/26/2016] [facility] 10Result Comment: [id number] 11Result Comment: [11/26/2016] [facility] 12Result Comment: [11/26/2016] [facility] 13Result Comment: [11/26/2016] [facility] 14Result Comment: [11/26/2016] [facility] 15Result Comment: [11/26/2016] [facility] 16Result Comment: [11/26/2016] [facility] 17Result Comment: [11/26/2016] [facility] 18Result Comment: [11/26/2016] [facility] 19Result Comment: [11/26/2016] [facility] 20Result Comment: [11/26/2016] [facility] 21Result Comment: [11/26/2016] [facility] 22Result Comment: [11/26/2016] [facility] 23Result Comment: [11/26/2016] [facility] 24Result Comment: [11/26/2016] [facility] 25Result Comment: [11/26/2016] [facility] 26Result Comment: [11/26/2016] [facility] 27Result Comment: [11/26/2016] [facility] 28Result Comment: [11/26/2016] [facility] 29Result Comment: [11/26/2016] [facility] 30Result Comment: [11/26/2016] [facility] 31Result Comment: [11/26/2016] [facility] 32Result Comment: [11/26/2016] [facility] 33Result Comment: [11/26/2016] [facility] 34Result Comment: [11/26/2016] [facility] 35Result Comment: [11/26/2016] [facility] Medications [...] Team Personnel Name: Live Leyva MD Position: [facility] Physician -Physician Practices Member Role: Lifetime Consulting Physician Name: Jeanmarie Lopez MD Position: [facility] Renal MD Member Role: Lifetime Consulting Physician Address: Address: [address] [place] [address] [address] [place] [address]- Name: Lashonda Clifford Position: [facility] Outreach Member Role: Lifetime Consulting Physician Name: Tiera Wadsworth RN Position: [facility] RN Member Role: Primary Care Nurse Name: Isaiah Angeles MD Position: [facility] Physician - Primary Care Member Role: PCP Address: Address: [address] [place] [phone]- [place] Name: Annalise Lara RN Position: S RN Member Role: Primary Care Nurse Name: Mark Wilkes MD Position: [facility] Renal MD Member Role: Lifetime Consulting Physician Address: Address: [address] [place] [address] [facility] [place] [address]- Name: Bibiana Treviño RN Position: [facility] RN Member Role: Primary Care Nurse Care Team Related Persons Name: MIRA MILLER Address: [address] Address: home [address] [place] [address] Name: MIRA MILLER Address: home [address] [id number] Name: PRATEEK MILLER Address: home [address] [place] [address] Name: BELEN MILLER Address: home [address] [place] [address] Name: BELEN MILLER Address: home [address] [place] [address]
--- OUTSIDE RECORDS SUMMARY | 2024-05-20 07:29 | XMS_ITS | Continuity of Care Document ---
Author Organization [facility] Ethan lt Address [address] [place] [address]- Care Team Providers Care Cleaner Assistant Name Role Phone Karthik HENLEY, Isaiah Douglas Primary Care Physician [phone] Encounter [facility] Date(s): 08/13/23 - 09/12/23 [facility] [place] Adult [address] [place] [address]- Attending Physician: Segundo Martinez Admitting Physician: AdmSegundo renee Referring Physician: [id number] Allergies, Adverse Reactions, Alerts Substance Reaction Severity [...] corded tetanus-diphtheria toxoids (Td) 10 08/15/22 Given [id number] bivalent booster vax 07/05/22 Recorded SARS-CoV-2 (COVID-19) [...] Comment: [facility] [place] 2Result Comment: [facility]-[id number] 3Location History: [facility] [place] 4Result Comment: [11/26/2016] [facility] 5Result Comment: [11/26/2016] [facility] 6Result Comment: [11/26/2016] [facility] 7Result Comment: [11/26/2016] [facility] 8Result Comment: [11/26/2016] [facility] 9Result Comment: [11/26/2016] [facility] 10Result Comment: [id number] 11Result Comment: [11/26/2016] [facility] 12Result Comment: [11/26/2016] [facility] 13Result Comment: [11/26/2016] [facility] 14Result Comment: [11/26/2016] [facility] 15Result Comment: [11/26/2016] [facility] 16Result Comment: [11/26/2016] [facility] 17Result Comment: [11/26/2016] [facility] 18Result Comment: [11/26/2016] [facility] 19Result Comment: [11/26/2016] [facility] 20Result Comment: [11/26/2016] [facility] 21Result Comment: [11/26/2016] [facility] 22Result Comment: [11/26/2016] [facility] 23Result Comment: [11/26/2016] [facility] 24Result Comment: [11/26/2016] [facility] 25Result Comment: [11/26/2016] [facility] 26Result Comment: [11/26/2016] [facility] 27Result Comment: [11/26/2016] [facility] 28Result Comment: [11/26/2016] [facility] 29Result Comment: [11/26/2016] [facility] 30Result Comment: [11/26/2016] [facility] 31Result Comment: [11/26/2016] [facility] 32Result Comment: [11/26/2016] [facility] 33Result Comment: [11/26/2016] [facility] 34Result Comment: [11/26/2016] [facility] 35Result Comment: [11/26/2016] [facility] Medications Flovent 110 mcg Inhaler HFA [...] Status Never smoker entered on: 10/24/17 Sex EKG study * Event Display: EKG Authored Date: Laboratory * Event Display: Non BH Lab Results Authored Date: * Event Display: Non BH Lab Results Authored Date: * Event Display: Non BH Lab Results Authored Date: * Event Display: Non BH Lab Results Authored Date: * Event Display: Non BH Lab Results Authored Date: * Event Display: Non BH Lab Results Authored Date: Radiology * Event Display: X-Ray Upper Extremity, Non- BH Authored Date: * Event Display: Ultrasound Renal, Non BH Authored Date: * Event Display: Ultrasound Lower Extremity, Non-BH Authored Date: * Event Display: MRI Spine, Non- BH Authored Date: * Event Display: MRI Spine, Non- BH Authored Date: * Event Display: X-Ray Spine, Non- BH Authored Date: * Event Display: X-Ray Ankle/Foot, Non- BH Authored Date: * Event Display: X-Ray Chest, Non- BH Authored Date: * Event Display: X-Ray Ankle/Foot, Non- BH Authored Date: * Event Display: X-Ray Lower Extremity, Non- BH Authored Date: * Event Display: X-Ray Hand/Wrist, Non- BH Authored Date: * Event Display: X-Ray Spine, Non- BH Authored Date: * Event Display: X-Ray Ankle/Foot, Non- BH Authored Date: * Event Display: X-Ray Chest, Non- BH Authored Date: * Event Display: X-Ray Hand/Wrist, Non- BH Authored Date: * Event Display: X-Ray Lower Extremity, Non- BH Authored Date: * Event Display: X-Ray Hand/Wrist, Non- BH Authored Date: Patient Care team information Care Team Personnel Name: Live Leyva MD Position: [facility] Physician -Physician Practices Member Role: Lifetime Consulting Physician Name: Jeanmarie Lopez MD Position: [facility] Renal MD Member Role: Lifetime Consulting Physician Address: Address: [address] [place] [address] [address] [place] [address]- [place] Name: Lashonda Clifford Position: [facility] Outreach Member Role: Lifetime Consulting Physician Name: Tiera Wadsworth RN Position: [facility] RN Member Role: Primary Care Nurse Name: Isaiah Angeles MD Position: [facility] Physician - Primary Care Member Role: PCP Address: Address: [address] [place] [address]- [place] Name: Annalise Lara RN Position: [facility] RN Member Role: Primary Care Nurse Name: Mark Wilkes MD Position: [facility] Renal MD Member Role: Lifetime Consulting Physician Address: Address: [address] [facility] [place] [address]- [place] Name: Bibiana Treviño RN Position: [facility] RN Member Role: Primary Care Nurse Care Team Related Persons Name: MIRA MILLER Address: [address] Address: [address] [place] [address] [place] Name: MIRA MILLER Address: home [address] [phone] Name: PRATEEK MILLER Address: home [address] [place] [address] Name: BELEN MILLER Address: [address] [place] [address] Name: BELEN MILLER Address: home [address] [place] [address]
--- OUTSIDE RECORDS SUMMARY | 2024-05-20 07:30 | XMS_ITS | Continuity of Care Document ---
Author Organization [facility] Iain Ethan lt Address [address] [place] [address]- Care Team Providers Care Set Up Technician Name Role Phone Karthik HENLEY, Isaiah Douglas Primary Care Physician [facility]counter [facility] Date(s): 03/08/20 - 04/07/20 [facility] Adult [address] [place] [address]- [facility] Allergies, Adverse Reactions, Alerts Substance Reaction [...] Guardian Refuses 1Result Comment: [facility]-[id number] 2Location History: [facility] [place] 3Result Comment: [11/26/2016] [facility] 4Result Comment: [11/26/2016] [facility] 5Result Comment: [11/26/2016] [facility] 6Result Comment: [11/26/2016] [facility] 7Result Comment: [11/26/2016] [facility] 8Result Comment: [11/26/2016] [facility] 9Result Comment: [11/26/2016] [facility] 10Result Comment: [11/26/2016] [facility] 11Result Comment: [11/26/2016] [facility] 12Result Comment: [11/26/2016] [facility] 13Result Comment: [11/26/2016] [facility] 14Result Comment: [11/26/2016] [facility] 15Result Comment: [11/26/2016] [facility] 16Result Comment: [11/26/2016] [facility] 17Result Comment: [11/26/2016] [facility] 18Result Comment: [11/26/2016] [facility] 19Result Comment: [11/26/2016] [facility] 20Result Comment: [11/26/2016] [facility] 21Result Comment: [11/26/2016] [facility] 22Result Comment: [11/26/2016] [facility] 23Result Comment: [11/26/2016] [facility] 24Result Comment: [11/26/2016] [facility] 25Result Comment: [11/26/2016] [facility] 26Result Comment: [11/26/2016] [facility] 27Result Comment: [11/26/2016] [facility] 28Result Comment: [11/26/2016] [facility] 29Result Comment: [11/26/2016] [facility] 30Result Comment: [11/26/2016] [facility] 31Result Comment: [11/26/2016] [facility] 32Result Comment: [11/26/2016] [facility] 33Result Comment: [11/26/2016] [facility] Medications acetaminophen-oxyCODONE 325 mg-5 mg oral [...]
--- OUTSIDE RECORDS SUMMARY | 2024-05-20 07:30 | XMS_ITS | Continuity of Care Document ---
Author Organization [facility] Ethan lt Address [address] [place] [address]- Care Team Providers Care Sole Conditioner Name Role Phone Isaiah Angeles MD Primary Care Physician Encounter [facility] Date(s): 04/11/22 - 04/18/22 [facility] Adult [address] [place] [address]- Attending Physician: Isaiah Angeles MD Allergies, Adverse [...] vac 11/27/20 Recorded influenza virus vaccine, inactivated 05/16/20 Fareed rded influenza virus vaccine, inactivated 1 05/20/19 Gi [...] Given Parent Or Guardian Refuses 1Result Comment: [facility]-[id number] 2Location History: [facility] [place] 3Result Comment: [11/26/2016] [facility] 4Result Comment: [11/26/2016] [facility] 5Result Comment: [11/26/2016] [facility] 6Result Comment: [11/26/2016] [facility] 7Result Comment: [11/26/2016] [facility] 8Result Comment: [11/26/2016] [facility] 9Result Comment: [11/26/2016] [facility] 10Result Comment: [11/26/2016] [facility] 11Result Comment: [11/26/2016] [facility] 12Result Comment: [11/26/2016] [facility] 13Result Comment: [11/26/2016] [facility] 14Result Comment: [11/26/2016] [facility] 15Result Comment: [11/26/2016] [facility] 16Result Comment: [11/26/2016] [facility] 17Result Comment: [11/26/2016] [facility] 18Result Comment: [11/26/2016] [facility] 19Result Comment: [11/26/2016] [facility] 20Result Comment: [11/26/2016] [facility] 21Result Comment: [11/26/2016] [facility] 22Result Comment: [11/26/2016] [facility] 23Result Comment: [11/26/2016] [facility] 24Result Comment: [11/26/2016] [facility] 25Result Comment: [11/26/2016] [facility] 26Result Comment: [11/26/2016] [facility] 27Result Comment: [11/26/2016] [facility] 28Result Comment: [11/26/2016] [facility] 29Result Comment: [11/26/2016] [facility] 30Result Comment: [11/26/2016] [facility] 31Result Comment: [11/26/2016] [facility] 32Result Comment: [11/26/2016] [facility] 33Result Comment: [11/26/2016] [facility] Medications Flovent 110 mcg Inhaler HFA [...] tablet = 224 mcg, By Mouth, Daily, # 180 tablet, 3 Refills, Maintenance, 04/18/22 14:18:00 EDT, Tablet, [facility], Partial fill upon patient request if the prescription is for aschedule II opioid drug., 155, cm, 04/11/22 15:29:00 ED... Start Date: 04/18/22 Status: Ordered lidocaine 4% topical film 1 [...] Date: 04/05/22 Status: Ordered Problem List Condition Effective Dates [...] recent to oldest [Reference Range]: 1 2 Height 155 cm (04/11/22 3:29 PM) 155 cm (04/11/22 3:19 PM) Weight 66.6 kg (04/11/22 3:19 PM) Oxygen Saturation [94-100 %] 96 % (04/11/22 3:19 PM) Pulse Rate [55-90 bpm] 86 bpm (04/11/22 3:19 PM) Body Mass Index [18.5-24.99] 27.72 *H* (04/11/22 3:19 PM) Blood Pressure [90-138/55-84 mm Hg] 118/ 85mm Hg (04/11/22 3:29 PM) 134/86mm Hg (04/11/22 3:19 PM) Mode of Delivery (Oxygen) Room air (04/11/22 3:19 PM) Blood pressure sites Arm, left (04/11/22 3:29 PM) Arm, left (04/11/22 3:19 PM) Weight Obtained Via Standing scale (04/11/22 3:19 PM) Social History Social History Type Response Smoking Status Never smoker entered on: 10/24/17 Sex Care Team Personnel Name: Isaiah Angeles MD Address: [address] [place] [id number]
--- OUTSIDE RECORDS SUMMARY | 2024-05-20 07:30 | XMS_ITS | Continuity of Care Document ---
Author Organization [facility] Ethan lt Address [address] [place] [address]- Care Team Providers Care Talent Acquisition Coordinator Name Role Phone Karthik HENLEY, Isaiah Douglas Primary Care Physician [phone] [place] [facility] [place]23 - 02/15/23 [facility] Adult [address] [place] [address]- Allergies, Adverse Reactions, Alerts Substance Reaction Severity Status codeine 1 Surgical adhesive ta pe itching Active Adhesive Bandage 2 Rash Active riTUXimab 3 Severe Active 1hives 2surgical tape allergy as per family 3developed anaphylaxis with throat closure sensation and facial swelling needed brief epinephrine drip Immunizations Given and Recorded Vaccine Date Status Refusal Reason tetanus-diphtheria toxoids (Td) 1 08/15/22 Given [id number] bivalent booster vax 07/05/22 Recorded influenza virus [...] Given Parent Or Guardian Refuses 1Result Comment: [id number] 2Result Comment: [facility] [place] 3Result Comment: [facility]-[id number] 4Location History: [facility] [place] 5Result Comment: [11/26/2016] [facility] 6Result Comment: [11/26/2016] [facility] 7Result Comment: [11/26/2016] [facility] 8Result Comment: [11/26/2016] [facility] 9Result Comment: [11/26/2016] [facility] 10Result Comment: [11/26/2016] [facility] 11Result Comment: [11/26/2016] [facility] 12Result Comment: [11/26/2016] [facility] 13Result Comment: [11/26/2016] [facility] 14Result Comment: [11/26/2016] [facility] 15Result Comment: [11/26/2016] [facility] 16Result Comment: [11/26/2016] [facility] 17Result Comment: [11/26/2016] [facility] 18Result Comment: [11/26/2016] [facility] 19Result Comment: [11/26/2016] [facility] 20Result Comment: [11/26/2016] [facility] 21Result Comment: [11/26/2016] [facility] 22Result Comment: [11/26/2016] [facility] 23Result Comment: [11/26/2016] [facility] 24Result Comment: [11/26/2016] [facility] 25Result Comment: [11/26/2016] [facility] 26Result Comment: [11/26/2016] [facility] 27Result Comment: [11/26/2016] [facility] 28Result Comment: [11/26/2016] [facility] 29Result Comment: [11/26/2016] [facility] 30Result Comment: [11/26/2016] [facility] 31Result Comment: [11/26/2016] [facility] 32Result Comment: [11/26/2016] [facility] 33Result Comment: [11/26/2016] [facility] 34Result Comment: [11/26/2016] [facility] 35Result Comment: [11/26/2016] [facility] Medications Budesonide 1 mg, 1mg/2ml, Refills [...] Team Personnel Name: Margaux Vivas RN Position: [facility] RN Member Role: Primary Care Nurse Name: Live Leyva MD Position: [facility] Physician -Physician Practices Member Role: Lifetime Consulting Physician Name: Jeanmarie Lopez MD Position: [facility] Renal MD Member Role: Lifetime Consulting Physician Address: Address: [address] [place] [address], [address] [facility] [place] [address]- Name: Lashonda Clifford Position: [facility] Outreach Member Role: Lifetime Consulting Physician Name: Isaiah Angeles MD Position: [facility] Physician - Primary Care Member Role: PCP Address: Address: [address] [place] [address]- Name: Annalise Lara RN Position: S RN Member Role: Primary Care Nurse Name: Mark Wilkes MD Position: S Renal MD Member Role: Lifetime Consulting Physician Address: Address: [address] [place] [address] [facility] [address] Name: Bibiana Treviño RN Position: S RN Member Role: Primary Care Nurse Care Team Related Persons Name: MIRA MILLER Address: [place] [phone] Name: MIRA MILLER Address: [place] [phone] Name: MIRA MILLER Address: [place] [phone] Name: MIRA MILLER Address: [place] [phone] Name: MIRA MILLER Address: [place] [phone] Name: ANGELA MIRA Address: [place] [phone] Name: MIRA MILLER Address: [place] [phone] Name: PRATEEK MILLER Address: [address] [address] Name: BELEN MILLER Address: [address] [address] Name: BELEN MILLER Address: [address] [address]
--- OUTSIDE RECORDS SUMMARY | 2024-05-20 07:30 | XMS_ITS | Continuity of Care Document ---
Author Organization [facility] Address [address] [place] [address]- Care Team Providers Care Market Development Executive Name Role Phone Karthik HENLEY, Isaiah Douglas Primary Care Physician [phone] [place] [facility] [place]18/23 [facility] [address] [place] [address] Allergies, Adverse Reactions, Alerts Substance Reaction Severity Status codeine 1 Surgical adhesive ta pe itching Active riTUXimab 2 Severe Active Adhesive Bandage 3 Rash Active 1hives 2developed anaphylaxis with throat closure sensation and facial swelling needed brief epinephrine drip 3surgical tape allergy as per family Immunizations Given and Recorded Vaccine Date Status Refusal Reason tetanus-diphtheria toxoids (Td) 1 08/15/22 Given [id number] bivalent booster vax 07/05/22 Recorded influenza virus [...] rded Haemophilus B-Hepatitis B Vaccine 31 96 Afreed rded Haemophilus B-Hepatitis B Vaccine 32 96 Fareed rded hepatitis B pediatric vaccine 33 96 Recorded hepatitis B pediatric vaccine 34 96 Recorded hepatitis B pediatric vaccine 35 96 Recorded 1Result Comment: [id number] 2Result Comment: [facility] [place] 3Result Comment: [id number] 4Location History: [facility] [place] 5Result Comment: [11/26/2016] [facility] 6Result Comment: [11/26/2016] [facility] 7Result Comment: [11/26/2016] [facility] 8Result Comment: [11/26/2016] [facility] 9Result Comment: [11/26/2016] [facility] 10Result Comment: [11/26/2016] [facility] 11Result Comment: [11/26/2016] [facility] 12Result Comment: [11/26/2016] [facility] 13Result Comment: [11/26/2016] [facility] 14Result Comment: [11/26/2016] [facility] 15Result Comment: [11/26/2016] [facility] 16Result Comment: [11/26/2016] [facility] 17Result Comment: [11/26/2016] [facility] 18Result Comment: [11/26/2016] [facility] 19Result Comment: [11/26/2016] [facility] 20Result Comment: [11/26/2016] [facility] 21Result Comment: [11/26/2016] [facility] 22Result Comment: [11/26/2016] [facility] 23Result Comment: [11/26/2016] [facility] 24Result Comment: [11/26/2016] [facility] 25Result Comment: [11/26/2016] [facility] 26Result Comment: [11/26/2016] [facility] 27Result Comment: [11/26/2016] [facility] 28Result Comment: [11/26/2016] [facility] 29Result Comment: [11/26/2016] [facility] 30Result Comment: [11/26/2016] [facility] 31Result Comment: [11/26/2016] [facility] 32Result Comment: [11/26/2016] [facility] 33Result Comment: [11/26/2016] [facility] 34Result Comment: [11/26/2016] [facility] 35Result Comment: [11/26/2016] [facility] Medications Budesonide 1 mg, 1mg/2ml, Refills 0, Maintenance, 02/13/23 14:21:00 EDT Start Date: 02/13/23 Status: Ordered cholecalciferol 50 mcg (2000 intl units) oral tablet, chewable 2 tablets, By Mouth, Daily, # 60 tablet, 7 Refills, Maintenance, 05/24/23 11:31:00 EDT, [facility], Partial fill upon patient request if the prescription is for a schedule II opioid drug., 152.4, cm, 02/13/23 14:23:00 EDT, Height, 64.55... Start Date: 05/24/23 Stop Date: 01/19/24 Status: Ordered cholecalciferol 50 mcg (2000 intl units) oral tablet, chewable 2 tablets, By Mouth, Daily, for 30 days, # 60 tablet, 7 Refills, Hard Stop 05/24/23 11:31:00 EDT, 09/26/22 11:31:00 EST, [facility], Partial fill upon patient request if the prescription is for a schedule II opioid drug., 153, cm, 08/28... Start Date: 09/26/22 Stop Date: 05/24/23 Status: [...] upon patie... Start Date: 10/20/22 Status: Ordered levothyroxine 100 mcg/mL (0.1 mg/mL) oral solution 2 mL = 200 mcg, By Mouth, Daily, # 60 mL, 6 Refills, Maintenance, 03/11/23 18:12:00 EDT, [facility], Partial fill upon patient request if the prescription is for a schedule II opioid drug., 152.4, cm, 02/13/23 14:23:00 EDT, Height, 64.5... Start Date: 03/11/23 Status: Ordered lidocaine 4% topical film 1 [...] Team Personnel Name: Margaux Vivas RN Position: [facility] RN Member Role: Primary Care Nurse Name: Live Leyva MD Position: [facility] Physician -Physician Practices Member Role: Lifetime Consulting Physician Name: Jeanmarie Lopez MD Position: [facility] Renal MD Member Role: Lifetime Consulting Physician Address: Address: [address] [place] [address], [address] [facility] [place] [address]- Name: Lashonda Clifford Position: [facility] Outreach Member Role: Lifetime Consulting Physician Name: Isaiah Angeles MD Position: [facility] Physician - Primary Care Member Role: PCP Address: Address: [address] [place] [address]- Name: Annalise Lara RN Position: [facility] RN Member Role: Primary Care Nurse Name: Mark Wilkes MD Position: [facility] Renal MD Member Role: Lifetime Consulting Physician Address: Address: [address] [place] [address] [facility] [place] [address]- Name: Bibiana Treviño RN Position: [facility] RN Member Role: Primary Care Nurse Care Team Related Persons Name: MIRA MILLRE Address: [place] Address: [address] [place] [address] [place] Name: ANGELA MIRA Address: home [address] [place] [phone] Name: PRATEEK MILLER Address: [address] [place] [address] Name: BELEN MILLER Address: [address] [place] [address] Name: BELEN MILLER Address: [address] [place] [address]
--- OUTSIDE RECORDS SUMMARY | 2024-05-20 07:30 | XMS_ITS | Continuity of Care Document ---
Author Organization [facility] Ethan lt Address [address] [place] [address]- Care Team Providers Care Nutrition Worker Name Role Phone Karthik HENLEY, Isaiah Douglas Primary Care Physician [place] [facility] [place] 09[place]26/22 [facility] Adult [address] [place] [address]- Allergies, Adverse Reactions, Alerts Substance Reaction Severity Status codeine 1 Surgical adhesive ta pe itching Active Adhesive Bandage 2 Rash Active riTUXimab 3 Severe Active 1hives 2surgical tape allergy as per family 3developed anaphylaxis with throat closure sensation and facial swelling needed brief epinephrine drip Immunizations Given and Recorded Vaccine Date Status Refusal Reason tetanus-diphtheria toxoids (Td) 1 08/15/22 Given [id number] bivalent booster vax 07/05/22 Recorded influenza virus [...] Given Parent Or Guardian Refuses 1Result Comment: [id number] 2Result Comment: [facility] [place] 3Result Comment: [facility]-[id number] 4Location History: [facility] [place] 5Result Comment: [11/26/2016] [facility] 6Result Comment: [11/26/2016] [facility] 7Result Comment: [11/26/2016] [facility] 8Result Comment: [11/26/2016] [facility] 9Result Comment: [11/26/2016] [facility] 10Result Comment: [11/26/2016] [facility] 11Result Comment: [11/26/2016] [facility] 12Result Comment: [11/26/2016] [facility] 13Result Comment: [11/26/2016] [facility] 14Result Comment: [11/26/2016] [facility] 15Result Comment: [11/26/2016] [facility] 16Result Comment: [11/26/2016] [facility] 17Result Comment: [11/26/2016] [facility] 18Result Comment: [11/26/2016] [facility] 19Result Comment: [11/26/2016] [facility] 20Result Comment: [11/26/2016] [facility] 21Result Comment: [11/26/2016] [facility] 22Result Comment: [11/26/2016] [facility] 23Result Comment: [11/26/2016] [facility] 24Result Comment: [11/26/2016] [facility] 25Result Comment: [11/26/2016] [facility] 26Result Comment: [11/26/2016] [facility] 27Result Comment: [11/26/2016] [facility] 28Result Comment: [11/26/2016] [facility] 29Result Comment: [11/26/2016] [facility] 30Result Comment: [11/26/2016] [facility] 31Result Comment: [11/26/2016] [facility] 32Result Comment: [11/26/2016] [facility] 33Result Comment: [11/26/2016] [facility] 34Result Comment: [11/26/2016] [facility] 35Result Comment: [11/26/2016] [facility] Medications cholecalciferol 50 mcg (2000 intl [...] Team Personnel Name: Margaux Vivas RN Position: [facility] RN Member Role: Primary Care Nurse Name: Live Leyva MD Position: [facility] Physician -Physician Practices Member Role: Lifetime Consulting Physician Name: Jeanmarie Lopez MD Position: [facility] Renal MD Member Role: Lifetime Consulting Physician Address: Address: [address] [place] [address], [address] [facility] [address] Name: Lashonda Clifford Position: [facility] Outreach Member Role: Lifetime Consulting Physician Name: Tiera Wadsworth RN Position: [facility] RN Member Role: Primary Care Nurse Name: Isaiah Angeles MD Position: [facility] Primary Care Physician Member Role: PCP Address: Address: [address] [place] [address]- [place] Name: Annalise Lara RN Position: [facility] RN Member Role: Primary Care Nurse Name: Mark Wilkes MD Position: [facility] Renal MD Member Role: Lifetime Consulting Physician Address: Address: [address] [place] [address] [facility] [place] [address]- Name: Bibiana Treviño RN Position: [facility] RN Member Role: Primary Care Nurse Care Team Related Persons Name: MIRA MILLER Address: [place] [phone] Name: ANGELA MIRA Address: [place] [phone] Name: MIRA MILLER Address: [address] [id number] Name: ANGELA MIRA Address: [address] [id number] Name: ANGELA MIRA Address: [address] [phone] Name: ANGELA MIRA Address: [address] [phone] Name: MIRA MILLER Address: [address] [id number] Name: PRATEEK MILLER Address: [address] [address] Name: BELEN MILLER Address: [address] [address] Name: BELEN MILLER Address: [address] [address]
--- OUTSIDE RECORDS SUMMARY | 2024-05-20 07:30 | XMS_ITS | Continuity of Care Document ---
Author Organization [facility] Ethan lt Address [address] [place] [address]- Care Team Providers Care Crating And Moving Estimator Name Role Phone Karthik HENLEY, Isaiah Douglas Primary Care Physician [phone] [place] [facility] [place] 06/[place]/23 [facility] Adult [address] [place] [address]- Allergies, Adverse Reactions, Alerts Substance Reaction Severity [...] corded tetanus-diphtheria toxoids (Td) 10 08/15/22 Given [id number] bivalent booster vax 07/05/22 Recorded SARS-CoV-2 (COVID-19) [...] Comment: [facility] [place] 2Result Comment: [id number] 3Location History: [facility] [place] 4Result Comment: [11/26/2016] [facility] 5Result Comment: [11/26/2016] [facility] 6Result Comment: [11/26/2016] [facility] 7Result Comment: [11/26/2016] [facility] 8Result Comment: [11/26/2016] [facility] 9Result Comment: [11/26/2016] [facility] 10Result Comment: [id number] 11Result Comment: [11/26/2016] [facility] 12Result Comment: [11/26/2016] [facility] 13Result Comment: [11/26/2016] [facility] 14Result Comment: [11/26/2016] [facility] 15Result Comment: [11/26/2016] [facility] 16Result Comment: [11/26/2016] [facility] 17Result Comment: [11/26/2016] [facility] 18Result Comment: [11/26/2016] [facility] 19Result Comment: [11/26/2016] [facility] 20Result Comment: [11/26/2016] [facility] 21Result Comment: [11/26/2016] [facility] 22Result Comment: [11/26/2016] [facility] 23Result Comment: [11/26/2016] [facility] 24Result Comment: [11/26/2016] [facility] 25Result Comment: [11/26/2016] [facility] 26Result Comment: [11/26/2016] [facility] 27Result Comment: [11/26/2016] [facility] 28Result Comment: [11/26/2016] [facility] 29Result Comment: [11/26/2016] [facility] 30Result Comment: [11/26/2016] [facility] 31Result Comment: [11/26/2016] [facility] 32Result Comment: [11/26/2016] [facility] 33Result Comment: [11/26/2016] [facility] 34Result Comment: [11/26/2016] [facility] 35Result Comment: [11/26/2016] [facility] Medications Flovent 110 mcg Inhaler HFA [...] Refills, Maintenance, 05/02/23 12:03:00 EDT, [facility], Partial fill upon patient request if the prescription is for a schedule... Start Date: 05/02/23 Status: Ordered levothyroxine 25 mcg (0.025 mg)/mL oral solution 1 mL = 25 mcg, By Mouth, Daily, to be taken with the 200mcg liquid daily to total 225mcg daily, # 30 mL, 6 Refills, Maintenance, 05/02/23 12:01:00 EDT, [facility], Partial fill upon patient request [...] Team Personnel Name: Margaux Vivas RN Position: [facility] RN Member Role: Primary Care Nurse Name: Live Leyva MD Position: [facility] Physician -Physician Practices Member Role: Lifetime Consulting Physician Name: Jeanmarie Lopez MD Position: [facility] Renal MD Member Role: Lifetime Consulting Physician Address: Address: [address] [place] [address], [address] [facility] [address] Name: Lashonda Clifford Position: [facility] Outreach Member Role: Lifetime Consulting Physician Name: Tiera Wadsworth RN Position: [facility] RN Member Role: Primary Care Nurse Name: Isaiah Angeles MD Position: [facility] Physician - Primary Care Member Role: PCP Address: Address: [address] [place] [address]- [place] Name: Annalise Lara RN Position: [facility] RN Member Role: Primary Care Nurse Name: Mark Wilkes MD Position: [facility] Renal MD Member Role: Lifetime Consulting Physician Address: Address: [address] [place] [address] [facility] [place] [address]- Name: Bibiana Treviño RN Position: [facility] RN Member Role: Primary Care Nurse Care Team Related Persons Name: MIRA MILLER Address: [address] [place] [phone] Name: MIRA MILLER Address: [place] Address: [address] [place] [address] Name: PRATEEK MILLER Address: [address] [place] [address] Name: BELEN MILLER Address: [address] [place] [address] Name: BELEN MILLER Address: [address] [place] [address]
--- OUTSIDE RECORDS SUMMARY | 2024-05-20 07:30 | XMS_ITS | Continuity of Care Document ---
Author Organization [facility] Ethan lt Address [address] [place] [address]- Care Team Providers Care Clock Repairer Name Role Phone Karthik HENLEY, Isaiah Douglas Primary Care Physician En[place] [facility] [place] 10/26/22 - 11/25/22 [facility] Adult [address] [place] [address]- Allergies, Adverse Reactions, Alerts Substance Reaction Severity Status codeine 1 Surgical adhesive ta pe itching Active Adhesive Bandage 2 Rash Active riTUXimab 3 Severe Active 1hives 2surgical tape allergy as per family 3developed anaphylaxis with throat closure sensation and facial swelling needed brief epinephrine drip Immunizations Given and Recorded Vaccine Date Status Refusal Reason tetanus-diphtheria toxoids (Td) 1 08/15/22 Given [id number] bivalent booster vax 07/05/22 Recorded influenza virus [...] Given Parent Or Guardian Refuses 1Result Comment: [id number] 2Result Comment: [facility] [place] 3Result Comment: [id number] 4Location History: [facility] [place] 5Result Comment: [11/26/2016] [facility] 6Result Comment: [11/26/2016] [facility] 7Result Comment: [11/26/2016] [facility] 8Result Comment: [11/26/2016] [facility] 9Result Comment: [11/26/2016] [facility] 10Result Comment: [11/26/2016] [facility] 11Result Comment: [11/26/2016] [facility] 12Result Comment: [11/26/2016] [facility] 13Result Comment: [11/26/2016] [facility] 14Result Comment: [11/26/2016] [facility] 15Result Comment: [11/26/2016] [facility] 16Result Comment: [11/26/2016] [facility] 17Result Comment: [11/26/2016] [facility] 18Result Comment: [11/26/2016] [facility] 19Result Comment: [11/26/2016] [facility] 20Result Comment: [11/26/2016] [facility] 21Result Comment: [11/26/2016] [facility] 22Result Comment: [11/26/2016] [facility] 23Result Comment: [11/26/2016] [facility] 24Result Comment: [11/26/2016] [facility] 25Result Comment: [11/26/2016] [facility] 26Result Comment: [11/26/2016] [facility] 27Result Comment: [11/26/2016] [facility] 28Result Comment: [11/26/2016] [facility] 29Result Comment: [11/26/2016] [facility] 30Result Comment: [11/26/2016] [facility] 31Result Comment: [11/26/2016] [facility] 32Result Comment: [11/26/2016] [facility] 33Result Comment: [11/26/2016] [facility] 34Result Comment: [11/26/2016] [facility] 35Result Comment: [11/26/2016] [facility] Medications cholecalciferol 50 mcg (2000 intl [...] Team Personnel Name: Margaux Vivas RN Position: [facility] RN Member Role: Primary Care Nurse Name: Live Leyva MD Position: [facility] Physician -Physician Practices Member Role: Lifetime Consulting Physician Name: Jeanmarie Lopez MD Position: [facility] Renal MD Member Role: Lifetime Consulting Physician Address: Address: [address] [place] [address], [address] [facility] [place] [address]- [place] Name: Lashonda Clifford Position: [facility] Outreach Member Role: Lifetime Consulting Physician Name: Tiera Wadsworth RN Position: [facility] RN Member Role: Primary Care Nurse Name: Isaiah Angeles MD Position: [facility] Primary Care Physician Member Role: PCP Address: Address: [address] [place] [address]- [place] Name: Annalise Lara RN Position: [facility] RN Member Role: Primary Care Nurse Name: Mark Wilkes MD Position: [facility] Renal MD Member Role: Lifetime Consulting Physician Address: Address: [address] [facility] [place] [address]- [place] Name: Bibiana Treviño RN Position: [facility] RN Member Role: Primary Care Nurse Care Team Related Persons Name: MIRA MILLER Address: [address] [phone] Name: MIRA MILLER Address: [address] [phone] Name: MIRA MILLER Address: [address] [phone] Name: MIRA MILLER Address: [address] [phone] Name: MIRA MILLER Address: [address] [id number] Name: MIRA MILLER Address: [address] [phone] Name: MIRA MILLER Address: [address] [phone] Name: PRATEEK MILLER Address: [address] [address] Name: BELEN MILLER Address: [address] [address] Name: BELEN MILLER Address: [address] [address]
--- OUTSIDE RECORDS SUMMARY | 2024-05-20 07:30 | XMS_ITS | Continuity of Care Document ---
Author Organization [facility] Address [address] [place] [address]- Care Team Providers Care Ash Worker Name Role Phone Karthik HENLEY, Isaiah Douglas Primary Care Physician [place] [facility] [place]/22 [facility] [address] [place] [id number]- Allergies, Adverse Reactions, Alerts Substance Reaction Severity [...] Given Parent Or Guardian Refuses 1Result Comment: [facility]-[id number] 2Location History: [facility] [place] 3Result Comment: [11/26/2016] [facility] 4Result Comment: [11/26/2016] [facility] 5Result Comment: [11/26/2016] [facility] 6Result Comment: [11/26/2016] [facility] 7Result Comment: [11/26/2016] [facility] 8Result Comment: [11/26/2016] [facility] 9Result Comment: [11/26/2016] [facility] 10Result Comment: [11/26/2016] [facility] 11Result Comment: [11/26/2016] [facility] 12Result Comment: [11/26/2016] [facility] 13Result Comment: [11/26/2016] [facility] 14Result Comment: [11/26/2016] [facility] 15Result Comment: [11/26/2016] [facility] 16Result Comment: [11/26/2016] [facility] 17Result Comment: [11/26/2016] [facility] 18Result Comment: [11/26/2016] [facility] 19Result Comment: [11/26/2016] [facility] 20Result Comment: [11/26/2016] [facility] 21Result Comment: [11/26/2016] [facility] 22Result Comment: [11/26/2016] [facility] 23Result Comment: [11/26/2016] [facility] 24Result Comment: [11/26/2016] [facility] 25Result Comment: [11/26/2016] [facility] 26Result Comment: [11/26/2016] [facility] 27Result Comment: [11/26/2016] [facility] 28Result Comment: [11/26/2016] [facility] 29Result Comment: [11/26/2016] [facility] 30Result Comment: [11/26/2016] [facility] 31Result Comment: [11/26/2016] [facility] 32Result Comment: [11/26/2016] [facility] 33Result Comment: [11/26/2016] [facility] Medications Flovent 110 mcg Inhaler HFA [...] levothyroxine 150 mcg (0.15 mg) oral tablet 2 tablet = 300 mcg, By Mouth, Daily, # 60 tablet, 11 Refills, Maintenance, 05/01/22 7:52:00 EDT, Tablet, [facility], this is an intentional change in dosing reflecting poor thyroidfunction. I am aware this is a big jump and it is inten... Start Date: 05/01/22 Status: Ordered lidocaine 4% topical film 1 [...] Team Personnel Name: Isaiah Angeles MD Address: [address] [place] [id number]
--- OUTSIDE RECORDS SUMMARY | 2024-05-20 07:30 | XMS_ITS | Continuity of Care Document ---
Author Organization [facility] lt Address [address] [place] [address]- Care Team Providers Care Product Specialist Name Role Phone Karthik HENLEY, Isaiah Douglas Primary Care Physician [place] [facility] [place] 01/22/23 - 02/21/23 [facility] [address] [place] [address]- Allergies, Adverse Reactions, Alerts Substance Reaction Severity Status codeine 1 Surgical adhesive ta pe itching Active Adhesive Bandage 2 Rash Active riTUXimab 3 Severe Active 1hives 2surgical tape allergy as per family 3developed anaphylaxis with throat closure sensation and facial swelling needed brief epinephrine drip Immunizations Given and Recorded Vaccine Date Status Refusal Reason tetanus-diphtheria toxoids (Td) 1 08/15/22 Given [id number] bivalent booster vax 07/05/22 Recorded influenza virus [...] Given Parent Or Guardian Refuses 1Result Comment: [id number] 2Result Comment: [facility] [place] 3Result Comment: [facility]-[id number] 4Location History: [facility] [place] 5Result Comment: [11/26/2016] [facility] 6Result Comment: [11/26/2016] [facility] 7Result Comment: [11/26/2016] [facility] 8Result Comment: [11/26/2016] [facility] 9Result Comment: [11/26/2016] [facility] 10Result Comment: [11/26/2016] [facility] 11Result Comment: [11/26/2016] [facility] 12Result Comment: [11/26/2016] [facility] 13Result Comment: [11/26/2016] [facility] 14Result Comment: [11/26/2016] [facility] 15Result Comment: [11/26/2016] [facility] 16Result Comment: [11/26/2016] [facility] 17Result Comment: [11/26/2016] [facility] 18Result Comment: [11/26/2016] [facility] 19Result Comment: [11/26/2016] [facility] 20Result Comment: [11/26/2016] [facility] 21Result Comment: [11/26/2016] [facility] 22Result Comment: [11/26/2016] [facility] 23Result Comment: [11/26/2016] [facility] 24Result Comment: [11/26/2016] [facility] 25Result Comment: [11/26/2016] [facility] 26Result Comment: [11/26/2016] [facility] 27Result Comment: [11/26/2016] [facility] 28Result Comment: [11/26/2016] [facility] 29Result Comment: [11/26/2016] [facility] 30Result Comment: [11/26/2016] [facility] 31Result Comment: [11/26/2016] [facility] 32Result Comment: [11/26/2016] [facility] 33Result Comment: [11/26/2016] [facility] 34Result Comment: [11/26/2016] [facility] 35Result Comment: [11/26/2016] [facility] Medications Budesonide 1 mg, 1mg/2ml, Refills [...] Team Personnel Name: Margaux Vivas RN Position: [facility] RN Member Role: Primary Care Nurse Name: Live Leyva MD Position: [facility] Physician -Physician Practices Member Role: Lifetime Consulting Physician Name: Jeanmarie Lopez MD Position: [facility] Renal MD Member Role: Lifetime Consulting Physician Address: Address: [address] [place] [address], [address] [facility] [place] [address]- Name: Lashonda Clifford Position: [facility] Outreach Member Role: Lifetime Consulting Physician Name: Isaiah Angeles MD Position: [facility] Physician - Primary Care Member Role: PCP Address: Address: [address] [place] [address]- Name: Annalise Lara RN Position: S RN Member Role: Primary Care Nurse Name: Mark Wilkes MD Position: S Renal MD Member Role: Lifetime Consulting Physician Address: Address: [address] [place] [address] [facility] [address] Name: Bibiana Treviño RN Position: S RN Member Role: Primary Care Nurse Care Team Related Persons Name: MIRA MILLER Address: [place] [phone] Name: MIRA MILLER Address: [place] [phone] Name: MIRA MILLER Address: [place] [phone] Name: MIRA MILLER Address: [place] [phone] Name: MIRA MILLER Address: [place] [phone] Name: ANGELA MIRA Address: [place] [phone] Name: MIRA MILLER Address: [place] [phone] Name: PRATEEK MILLER Address: [address] [address] Name: BELEN MILLER Address: [address] [address] Name: BELEN MILLER Address: [address] [address]
--- OUTSIDE RECORDS SUMMARY | 2024-05-20 07:30 | XMS_ITS | Continuity of Care Document ---
Author Organization [facility] Address [address] [place] [address]- Care Team Providers Care Bar Turner Name Role Phone Karthik HENLEY, Isaiah Douglas Primary Care Physician Encounter [facility] Date(s): 07/06/21 - 08/05/21 [facility] [place] [address] [place] [address]- Allergies, Adverse Reactions, Alerts Substance Reaction Severity [...] Given Parent Or Guardian Refuses 1Result Comment: [facility]-[id number] 2[facility] 3Result Comment: [11/26/2016] [facility] 4Result Comment: [11/26/2016] [facility] 5Result Comment: [11/26/2016] [facility] 6Result Comment: [11/26/2016] [facility] 7Result Comment: [11/26/2016] [facility] 8Result Comment: [11/26/2016] [facility] 9Result Comment: [11/26/2016] [facility] 10Result Comment: [11/26/2016] [facility] 11Result Comment: [11/26/2016] [facility] 12Result Comment: [11/26/2016] [facility] 13Result Comment: [11/26/2016] [facility] 14Result Comment: [11/26/2016] [facility] 15Result Comment: [11/26/2016] [facility] 16Result Comment: [11/26/2016] [facility] 17Result Comment: [11/26/2016] [facility] 18Result Comment: [11/26/2016] [facility] 19Result Comment: [11/26/2016] [facility] 20Result Comment: [11/26/2016] [facility] 21Result Comment: [11/26/2016] [facility] 22Result Comment: [11/26/2016] [facility] 23Result Comment: [11/26/2016] [facility] 24Result Comment: [11/26/2016] [facility] 25Result Comment: [11/26/2016] [facility] 26Result Comment: [11/26/2016] [facility] 27Result Comment: [11/26/2016] [facility] 28Result Comment: [11/26/2016] [facility] 29Result Comment: [11/26/2016] [facility] 30Result Comment: [11/26/2016] [facility] 31Result Comment: [11/26/2016] [facility] 32Result Comment: [11/26/2016] [facility] 33Result Comment: [11/26/2016] [facility] Medications lidocaine 4% topical film 1 [...]
--- OUTSIDE RECORDS SUMMARY | 2024-05-20 07:30 | XMS_ITS | Continuity of Care Document ---
Author Organization [facility] al Address [address] [place] [address]- Care Team Providers Care Electrical Unit Rebuilder Name Role Phone Karthik HENLEY, Isaiah Douglas Primary Care Physician Encounter [facility] Date(s): 10/18/22 - 10/18/[address] [address]- Discharge Disposition: A-D/C Home Attending Physician: Bonifacio Marcano MD Admitting Physician: Bonifacio Marcano MD Referring Physician: Not on Staff, Referring MD Allergies, Adverse Reactions, Alerts Substance Reaction Severity Status codeine 1 Surgical adhesive ta pe itching Active Adhesive Bandage 2 Rash Active riTUXimab 3 Severe Active 1hives 2surgical tape allergy as per family 3developed anaphylaxis with throat closure sensation and facial swelling needed brief epinephrine drip Immunizations Given and Recorded Vaccine Date Status Refusal Reason tetanus-diphtheria toxoids (Td) 1 08/15/22 Given [id number] bivalent booster vax 07/05/22 Recorded influenza virus [...] Given Parent Or Guardian Refuses 1Result Comment: [id number] 2Result Comment: [facility] [place] 3Result Comment: [facility]-[id number] 4Location History: [facility] [place] 5Result Comment: [11/26/2016] [facility] 6Result Comment: [11/26/2016] [facility] 7Result Comment: [11/26/2016] [facility] 8Result Comment: [11/26/2016] [facility] 9Result Comment: [11/26/2016] [facility] 10Result Comment: [11/26/2016] [facility] 11Result Comment: [11/26/2016] [facility] 12Result Comment: [11/26/2016] [facility] 13Result Comment: [11/26/2016] [facility] 14Result Comment: [11/26/2016] [facility] 15Result Comment: [11/26/2016] [facility] 16Result Comment: [11/26/2016] [facility] 17Result Comment: [11/26/2016] [facility] 18Result Comment: [11/26/2016] [facility] 19Result Comment: [11/26/2016] [facility] 20Result Comment: [11/26/2016] [facility] 21Result Comment: [11/26/2016] [facility] 22Result Comment: [11/26/2016] [facility] 23Result Comment: [11/26/2016] [facility] 24Result Comment: [11/26/2016] [facility] 25Result Comment: [11/26/2016] [facility] 26Result Comment: [11/26/2016] [facility] 27Result Comment: [11/26/2016] [facility] 28Result Comment: [11/26/2016] [facility] 29Result Comment: [11/26/2016] [facility] 30Result Comment: [11/26/2016] [facility] 31Result Comment: [11/26/2016] [facility] 32Result Comment: [11/26/2016] [facility] 33Result Comment: [11/26/2016] [facility] 34Result Comment: [11/26/2016] [facility] 35Result Comment: [11/26/2016] [facility] Medications cholecalciferol 50 mcg (2000 intl [...] EC Tablet Start Date: 04/05/22 Status: Ordered Tylenol 325 mg oral tablet 975 mg, Tablet, By Mouth, Once, STAT, 10/18/22 10:20:00 EST, Stop date 10/18/22 10:20:00 EST Start Date: 10/18/22 Stop Date: 10/18/22 Status: Completed Problem List Condition Confirmation Course Effective Dates [...] Active Vitamin D deficiency Confirmed Active 1Thoracic Results Radiology Reports * Exam Date Time Procedure Performing Provider Status 10/18/22 12:[address] Abdomen and Pelvi s W/O Contrast Ruiz Dillard; [place] (Verified) Notes: (CT Abdomen and Pelvis W/O Contrast) Reason For Exam: Pain RESULT: CT Abdomen and Pelvis W/O Contrast CT Abdomen and Pelvis W/O Contrast Hx of Present Illness: hip, thigh pain, and pain when urinating; Reason: Pain; Clinical Question(s): Calculus; Order Comment: Ordering MD wants to wait for test results prior to scan. F MDF TECHNIQUE: Spiral CT through the abdomen and pelvis without IV contrast formatted in 3 planes. Thisstudy was performed without oral contrast. Weight- based protocol using automatic tube modulation was used to optimize exposure parameters. CT of the pelvis from 03/11/2021 COMPARISON: CT abdomen and pelvis from 03/11/2021 FINDINGS: Equip Maint Eng View Findings, Lines and Tubes: None. Visualized Chest: Minimal atelectasis. No pleural effusion. The heart is normal in size. Trace pericardial fluid. Diaphragm: Normal. Liver: Normal. Gallbladder: Absent consistent with prior cholecystectomy. Bile ducts: Mild dilation of the extrahepatic bile duct measuring 9 mm (coronal image 31), slightlyincreased from 6 mm in 202. No distal obstructing radiodense stone appreciated. Spleen: Normal. Pancreas: Normal. Adrenal glands: Normal. Kidneys and ureters: No hydronephrosis, stones, or noncontrast evidence of suspicious masses. Bladder: Normal. Reproductive organs: Unremarkable. Stomach, small bowel, and large bowel: No abnormal bowel wall thickening or distention. Submucosal fat deposition within the colon most pronounced in the proximal colon and rectum. Appendix: Not seen, but no evidence of appendicitis. Peritoneum and retroperitoneum: No ascites or pneumoperitoneum. No omental or mesenteric lesions. Lymph nodes: No enlarged lymph nodes. Blood vessels: Trace aortic vascular calcifications but no aneurysm. Abdominal and pelvic wall: Small fat-containing umbilical hernia. Bones: No acute abnormality. Unchanged dysplastic appearance of the left proximal femur. Mild left hip osteoarthritis. IMPRESSION: No definite acute abnormality within the abdomen or pelvis. Specifically no evidence of renal or ureteral stone or hydronephrosis. Mild nonspecific dilation of the extrahepatic bile duct measuring 9 mm slightly increased in size from 6 mm in 202. No obstructing radiodense stone appreciated on CT. Please correlate with liver function testing and patient's symptoms. Unchanged dysmorphic appearance of the left hip with associated mild osteoarthritis. WSN: [id number] Ordering Physician: Bonifacio Marcano Dictated By: BadaluArie turner MD Dictated Date/Time: 10/18/22 1:08 pm Reviewed By: Arie Garcia MD Signed By: Arie Garcia MD Signed Date/Time: 10/18/22 1:08 pm Transcribed By: ABAD Transcribed Date/Time: 10/18/22 12:59 pm Vital Signs Most recent to oldest [Reference Range]: 1 2 3 Height 153 cm (10/18/22 9:45 AM) 153 cm (10/18/22 9:42 AM) Weight 70.7 kg (10/18/22 9:45 AM) 70.7 kg (10/18/22 9:42 AM) Oxygen Saturation [94-100 %] 100 % (10/18/22 1:43 PM) 99 % (10/18/22 9:42 AM) Pulse Rate [55-90 bpm] 78 bpm (10/18/22 1:43 PM) 95 bpm *H* (10/18/22 9:42 AM) Body Mass Index [18.5-24.99 kg/m2] 30.2 kg/m2 *>HHI* (10/18/22 9:42 AM) Blood Pressure [90-138/55-84 mm Hg] 133/86mm Hg (10/18/22 1:43 PM) 135/98mm Hg (10/18/22 9:42 AM) Respiratory Rate [16-30 br/min] 16 br/min (10/18/22 1:43 PM) 18 br/min (10/18/22 11:30 AM) 18 br/min (10/18/22 9:42 AM) Temperature [96.8-100.4 DegF] 97.3 DegF (10/18/22 1:43 PM) 98.1 DegF (10/18/22 9:42 AM) Mode of Delivery (Oxygen) Room air (10/18/22 1:43 PM) Room air (10/18/22 9:42 AM) Blood pressure sites Arm, right (10/18/22 9:42 AM) Temperature Route Temporal (10/18/22 1:43 PM) Temporal (10/18/22 9:42 AM) Dry Weight 70.7 kg (10/18/22 9:45 AM) 70.7 kg (10/18/22 9:42 AM) Weight Obtained Via Standing scale (10/18/22 9:42 AM) Dry Weight Obtained Via Standing scale (10/18/22 9:42 AM) Social History Social History Type Response Smoking Status Never smoker entered on: 10/24/17 Sex Note * Bonifacio Marcano MD: PERFORM, SIGN, VERIFY Event Display: Patient Education Handout Authored Date: [id number] * Bonifacio Marcano MD: PERFORM Event Display: Patient Education Leaflets Authored Date: [id number] Dysuria with Uncertain Cause (Adult) ?? [id number] Dysuria with Uncertain Cause (Adult) The urethra is the tube that allows urine to pass out of the body. In a woman, the urethra is the opening above the vagina. In men, the urethra is the opening on the tip of the penis. Dysuria is the feeling of pain or burning in the urethra when passing urine. Dysuria can be caused by anything that irritates or inflames the urethra. An infection or chemical irritation can cause this reaction. A bladder infection is the most common cause of dysuria in adults. A urine test can diagnose this. A bladder infection needs antibiotic treatment. Soaps, lotions, colognes, and feminine hygiene products can cause dysuria. So can?? control jellies, creams, and foams. It will go away 1 to 3 days after discontinuing the use of these irritants. Sexually transmitted infections (STIs), such as chlamydia or gonorrhea, can cause dysuria. Your healthcare provider may take a culture sample. Your provider may start you on antibiotic medicine before the culture test returns. In women who have gone through menopause, dysuria can be from dryness in the lining of the urethra.This can be treated with hormones. Dysuria becomes long- term (chronic) when it lasts for weeks or months. You may need to see??a specialist (urologist)??to diagnose and treat chronic dysuria. Home care These home care tips may help: ??? Don't use any chemicals or products??that you think may be causing your symptoms. ??? If you were given a prescription medicine, take as directed. Take it until it's all used up. ??? If a culturewas taken, don't have??sex until you have been told that it is negative. A negative culture means you don't have an??infection. Then follow your healthcare provider's advice to treat your condition. If a culture was done and it is positive: ??? Both you and your sexual partner may need to be treated. This is true even if your partner has no symptoms. ??? Contact your healthcare provider or go [facility] or the public health department to be looked at and treated. ??? Don't have sex until both you and your partner have finished all antibiotics and your healthcare provider says you are no longer contagious. ??? Learn about and use safe sex practices. The safest sex is with a partner who has tested negative and only has sex with you. Condoms can prevent STIs from spreading, but they aren't a guarantee. ?? Follow-up care Follow up with your healthcare provider, or??as advised. If a culture was taken, you may call as directed for??the results. If you have an STI, follow up with your provider or the public health department for a complete STI screening, including HIV testing. For more information, contact CDC-INFO eq495-062-3570. ?? When to call your healthcare provider Call your healthcare provider right away if??any of these occur: ??? You aren't better??after 3 days of treatment ??? Fever of 100.4??F (38??C) or higher, or as directed by your healthcare provider ??? Back or belly pain that gets worse ??? You can't??urinate because of pain ??? New discharge from the urethra, vagina, or penis ??? Painful sores on the penis ??? Rash or joint pain ??? Painful lumps (lymph nodes) in the groin ??? Testicle pain or swelling of the scrotum ?? Last Reviewed Date: 2022 ?? [id number] [employer]. All rights reserved. This information is not intended as a substitute for professional medical care. Always follow your healthcare professional's instructions. ?? * Jeet HENLEY, Bonifacio Love: PERFORM Event Display: Patient Education Leaflets Authored Date: [id number] Back Pain (Acute or Chronic) ?? [id number] Back Pain (Acute or Chronic) Back pain is one of the most common problems. The good news is that most people feel better in 1 to2 weeks, and most of the rest in 1 to 2 months. Most people can remain active. People who have pain??describe it differently???not??everyone is the same. ??? The pain can be sharp, stabbing, shooting, aching, cramping or burning. ??? Movement, standing,bending, lifting, sitting, or walking may worsen pain. ??? It can be limited to one spot or area, or it can be more generalized. ??? It can spread upwards, to the front, or go down your arms or legs (sciatica). ??? It can cause muscle spasm. Most of the time, mechanical problems with the muscles??or spine cause the pain. Mechanical problems??are usually caused by an injury to the muscles or ligaments. Illness can cause back pain, but it's usually not caused by a serious illness. Mechanical problems include:? Physical activity such as sports, exercise, work, or normal activity ??? Overexertion, lifting,pushing, pulling incorrectly or too aggressively ??? Sudden twisting, bending, or stretching from an accident, or accidental movement ??? Poor posture ??? Stretching or moving wrong, without noticingpain at the time ??? Poor coordination, lack of regular exercise (check with your doctor about this) ??? Spinal disc disease or arthritis ??? Stress Pain can also be related to , or illness such as appendicitis, bladder or kidney infections, kidney stones, and pelvic infections. Acute back pain usually gets better in??1 to 2 weeks. Back pain related to disk disease, arthritis in the spinal joints, or narrowing of the spinal canal (spinal stenosis) can become chronic and lastfor months or years. Unless you had a physical injury such as a car accident or fall, X-rays are usually not needed for the first assessment of back pain. If pain continues and does not respond to medical treatment, you may need X-rays and other tests. Home care Try this home care advice: ??? When in bed, try??to find a position of comfort. A firm mattress is best. Try lying flat on your back with pillows under your knees. You can also try lying on your side with your knees bent up toward your chest and a pillow between your knees. ??? At first, don't try to stretch out the sore spots. If there is a strain, it's not like the good soreness you get after exercising without an injury. In this case, stretching may make it worse. ??? Don't sit for long periods, as in a long car ride or during other??travel. This puts more stress on the lower back than standing or walking. ??? During the first 24 to 72 hours after an acute injury or flare up of chronic back pain, apply an ice pack to the painful area for 20 minutes and then remove it for 20 minutes. Do this over a period of 60 to 90 minutes or several times a day. This will reduce swelling and pain. Wrap the ice pack in a thintowel or plastic to protect your skin. ??? You can start with ice, then switch to heat. Heat (hot shower, hot bath, or heating pad) reduces pain and works well for muscle spasms. Heat can be applied to the painful area for 20 minutes then remove it for 20 minutes. Do this over a period of 60 to 90 minutes or several times a day. Don't sleep on a heating pad. It can lead to skin gould or tissue damage. ??? You can alternate ice and heat therapy. Talk with your doctor about??the best treatment for your back pain. ??? Therapeutic massage can help relax the back muscles without stretching them. ??? Be aware of safe lifting methods. Don't lift anything without stretching first. Medicines Talk to your doctor before using medicine, especially if you have other medical problems or are taking other medicines. ??? You may use [id number] medicine as directed on the bottle to control pain, unless another pain medicine was prescribed. Talk with your healthcare provider before using these medicines if you have chronic conditions such as diabetes, liver or kidney disease, stomach ulcers, or digestive bleeding. Also talk with your provider if you take blood thinners. ??? Be careful if you are given a prescription medicines, narcotics, or medicine for muscle spasms. They can cause drowsiness, affect your coordination, reflexes, and judgment. Don't drive or operate heavy machinery. ?? Follow-up care Follow up with your healthcare provider, or as advised.?? If X-rays were taken, you will be told of any new findings that may affect your care. ?? Call 911 Call 911 if any of the following occur: ??? Trouble breathing ??? Confusion ??? Very drowsy or trouble awakening ??? Fainting or loss of consciousness ??? Rapid or very slow heart rate ??? Loss of bowel or bladder control ?? When to seek medical advice Call your healthcare provider right away if any of these occur:? Pain gets worse or spreads toyour legs ??? Your bowel or bladder control changes ??? Fever ??? Blood in your urine ??? Weakness or numbness in one or both legs ??? Numbness in the groin or genital area ?? Last Reviewed Date: 2021 ?? [id number] [employer]. All rights reserved. This information is not intended as a substitute for professional medical care. Always follow your healthcare professional's instructions. ?? CT Abdomen and Pelvis WO contrast * BHSP[facility]ers[facility] , CIS S: TRANSCRIBE Jose HENLEY, Arie Guzman: VERIFY Event Display: Result: Authored Date: [id number] CT Abdomen and Pelvis W/O Contrast Hx of Present Illness: hip, thigh pain, and pain when urinating; Reason: Pain; Clinical Question(s): Calculus; Order Comment: Ordering MD wants to wait for test results prior to scan. F MDF TECHNIQUE: Spiral CT through the abdomen and pelvis without IV contrast formatted in 3 planes. Thisstudy was performed without oral contrast. Weight- based protocol using automatic tube modulation was used to optimize exposure parameters. CT of the pelvis from 03/11/2021 COMPARISON: CT abdomen and pelvis from 03/11/2021 FINDINGS: Equip Maint Eng View Findings, Lines and Tubes: None. Visualized Chest: Minimal atelectasis. No pleural effusion. The heart is normal in size. Trace pericardial fluid. Diaphragm: Normal. Liver: Normal. Gallbladder: Absent consistent with prior cholecystectomy. Bile ducts: Mild dilation of the extrahepatic bile duct measuring 9 mm (coronal image 31), slightlyincreased from 6 mm in 2021. No distal obstructing radiodense stone appreciated. Spleen: Normal. Pancreas: Normal. Adrenal glands: Normal. Kidneys and ureters: No hydronephrosis, stones, or noncontrast evidence of suspicious masses. Bladder: Normal. Reproductive organs: Unremarkable. Stomach, small bowel, and large bowel: No abnormal bowel wall thickening or distention. Submucosal fat deposition within the colon most pronounced in the proximal colon and rectum. Appendix: Not seen, but no evidence of appendicitis. Peritoneum and retroperitoneum: No ascites or pneumoperitoneum. No omental or mesenteric lesions. Lymph nodes: No enlarged lymph nodes. Blood vessels: Trace aortic vascular calcifications but no aneurysm. Abdominal and pelvic wall: Small fat-containing umbilical hernia. Bones: No acute abnormality. Unchanged dysplastic appearance of the left proximal femur. Mild left hip osteoarthritis. IMPRESSION: No definite acute abnormality within the abdomen or pelvis. Specifically no evidence of renal or ureteral stone or hydronephrosis. Mild nonspecific dilation of the extrahepatic bile duct measuring 9 mm slightly increased in size from 6 mm in 2020. No obstructing radiodense stone appreciated on CT. Please correlate with liver function testing and patient's symptoms. Unchanged dysmorphic appearance of the left hip with associated mild osteoarthritis. WSN: [id number] Ordering Physician: Bonifacio Marcano Dictated By: Arie Garcia MD Dictated Date/Time: 10/18/22 1:08 pm Reviewed By: Arie Garcia MD Signed By: Arie Garcia MD Signed Date/Time: 10/18/22 1:08 pm Transcribed By: ABAD Transcribed Date/Time: 10/18/22 12:59 pm Patient Care team information Care Team Personnel Name: Margaux Vivas RN Position: [facility] RN Member Role: Primary Care Nurse Name: Live Leyva MD Position: [facility] Physician -Physician Practices Member Role: Lifetime Consulting Physician Name: Jeanmarie Lopez MD Position: [facility] Renal MD Member Role: Lifetime Consulting Physician Address: Address: [address] [place] [address], [address] [facility] [address] Name: Lashonda Clifford Position: [facility] Outreach Member Role: Lifetime Consulting Physician Name: Tiera Wadsworth RN Position: [facility] RN Member Role: Primary Care Nurse Name: Isaiah Angeles MD Position: [facility] Primary Care Physician Member Role: PCP Address: Address: [address] [place] [address]- [place] Name: Annalise Lara RN Position: [facility] RN Member Role: Primary Care Nurse Name: Mark Wilkes MD Position: [facility] Renal MD Member Role: Lifetime Consulting Physician Address: Address: [address] [place] [address] [facility] [place] [address]- Name: Kamila WEBB, Bibiana Position: [facility] RN Member Role: Primary Care Nurse Name: Jeet HENLEY, Bonifacio Love Position: [facility] ED Medicine MD Member Role: Admitting Physician Address: Address: [address] [place] [address]- Name: Lars WEBB, Varsha Position: [facility] ED RN W/OE and Tasks Member Role: Patient Care Provider Care Team Related Persons Name: MIRA MILLER Address: [place] [phone] Name: MIRA MILLER Address: [place] [phone] Name: MIRA MILLER Address: [place] [id number] Name: MIRA MILLER Address: [address] [id number] Name: MIRA MILLER Address: [place] [phone] Name: MIRA MILLER Address: [address] [id number] Name: MIRA MILLER Address: [address] [phone] Name: PRATEEK MILLER Address: [address] [address] Name: BELEN MILLER Address: [address] [address] Name: BELEN MILLER Address: [address] [address]
--- OUTSIDE RECORDS SUMMARY | 2024-05-20 07:30 | XMS_ITS | Continuity of Care Document ---
Author Organization [facility] lt Address [address] [place] [address]- Care Team Providers Care Jet Blade Polisher Name Role Phone Karthik HENLEY, Isaiah Douglas Primary Care Physician [place] [facility] [place]/20 [facility] Adult [address] [place] [address]- Allergies, Adverse Reactions, Alerts Substance Reaction Severity [...] Given Parent Or Guardian Refuses 1Result Comment: [facility] [place] 2]-[id number] 2Location History: [facility] [place] 3Result Comment: [11/26/2016] [facility] 4Result Comment: [11/26/2016] [facility] 5Result Comment: [11/26/2016] [facility] 6Result Comment: [11/26/2016] [facility] 7Result Comment: [11/26/2016] [facility] 8Result Comment: [11/26/2016] [facility] 9Result Comment: [11/26/2016] [facility] 10Result Comment: [11/26/2016] [facility] 11Result Comment: [11/26/2016] [facility] 12Result Comment: [11/26/2016] [facility] 13Result Comment: [11/26/2016] [facility] 14Result Comment: [11/26/2016] [facility] 15Result Comment: [11/26/2016] [facility] 16Result Comment: [11/26/2016] [facility] 17Result Comment: [11/26/2016] [facility] 18Result Comment: [11/26/2016] [facility] 19Result Comment: [11/26/2016] [facility] 20Result Comment: [11/26/2016] [facility] 21Result Comment: [11/26/2016] [facility] 22Result Comment: [11/26/2016] [facility] 23Result Comment: [11/26/2016] [facility] 24Result Comment: [11/26/2016] [facility] 25Result Comment: [11/26/2016] [facility] 26Result Comment: [11/26/2016] [facility] 27Result Comment: [11/26/2016] [facility] 28Result Comment: [11/26/2016] [facility] 29Result Comment: [11/26/2016] [facility] 30Result Comment: [11/26/2016] [facility] 31Result Comment: [11/26/2016] [facility] 32Result Comment: [11/26/2016] [facility] 33Result Comment: [11/26/2016] [facility] Medications carvedilol 12.5 mg oral tablet [...]
--- OUTSIDE RECORDS SUMMARY | 2024-05-20 07:30 | XMS_ITS | Continuity of Care Document ---
Author Organization [facility] ter Address [address] [place] [id number]- Care Team Providers Care Pot Runner Name Role Phone Karthik HENLEY, Isaiah Douglas Primary Care Physician Encounter [facility] [place] Date(s): 08/20/19 - 09/22/[address] [address]- [facility] Attending Physician: Ama Gilman MD Admitting Physician: Ama Gilman MD Referring Physician: Ama Gilman MD Allergies, Adverse Reactions, Alerts Substance Reaction [...] Given Parent Or Guardian Refuses 1Result Comment[id number] 2Location History: [facility] [place] 3Result Comment: [11/26/2016] [facility] 4Result Comment: [11/26/2016] [facility] 5Result Comment: [11/26/2016] [facility] 6Result Comment: [...] [facility] 33Result Comment: [11/26/2016] [facility] Medications ferrous sulfate 325 mg oral [...]
--- OUTSIDE RECORDS SUMMARY | 2024-05-20 07:30 | XMS_ITS | Continuity of Care Document ---
Author Organization [facility] Address [address] [place] [address]- Care Team Providers Care Chemistry Teacher Name Role Phone Isaiah Angeles MD Primary Care Physician [place] [facility] [place]/20 - 10/21/20 [facility] [address] [place] [address] Attending Physician: Andrei Womack MD Admitting Physician: Andrei Womack MD Referring Physician: Isaiah Angeles MD Allergies, [...] Parent Or Guardian Refuses 1Result Comment: [facility] [place]-[id number] [facility] 3Result Comment: [11/26/2016] [facility] 4Result Comment: [11/26/2016] [facility] 5Result Comment: [11/26/2016] [facility] 6Result Comment: [11/26/2016] [facility] 7Result Comment: [11/26/2016] [facility] 8Result Comment: [11/26/2016] [facility] 9Result Comment: [11/26/2016] [facility] 10Result Comment: [11/26/2016] [facility] 11Result Comment: [11/26/2016] [facility] 12Result Comment: [11/26/2016] [facility] 13Result Comment: [11/26/2016] [facility] 14Result Comment: [11/26/2016] [facility] 15Result Comment: [11/26/2016] [facility] 16Result Comment: [11/26/2016] [facility] 17Result Comment: [11/26/2016] [facility] 18Result Comment: [11/26/2016] [facility] 19Result Comment: [11/26/2016] [facility] 20Result Comment: [11/26/2016] [facility] 21Result Comment: [11/26/2016] [facility] 22Result Comment: [11/26/2016] [facility] 23Result Comment: [11/26/2016] [facility] 24Result Comment: [11/26/2016] [facility] 25Result Comment: [11/26/2016] [facility] 26Result Comment: [11/26/2016] [facility] 27Result Comment: [11/26/2016] [facility] 28Result Comment: [11/26/2016] [facility] 29Result Comment: [11/26/2016] [facility] 30Result Comment: [11/26/2016] [facility] 31Result Comment: [11/26/2016] [facility] 32Result Comment: [11/26/2016] [facility] 33Result Comment: [11/26/2016] [facility] Medications lidocaine 4% topical film 1 [...]
--- OUTSIDE RECORDS SUMMARY | 2024-05-20 07:30 | XMS_ITS | Continuity of Care Document ---
Author Organization [facility] ter Address [address] [place] [address]- Care Team Providers Care Senior Network Security Architect Name Role Phone Karthik HENLEY, Isaiah Douglas Primary Care Physician [place] [facility] [place] 10/02/[address] [address]- [facility] Attending Physician: Corrine Salgado DO Allergies, Adverse Reactions, Alerts Substance Reaction Severity [...] 1Result Comment: [facility]-[id number] 2Location History: [facility] [place] 3Result Comment: [11/26/2016] [facility] 4Result Comment: [11/26/2016] [facility] 5Result Comment: [11/26/2016] [facility] 6Result Comment: [11/26/2016] [facility] 7Result Comment: [11/26/2016] [facility] 8Result Comment: [11/26/2016] [facility] 9Result Comment: [11/26/2016] [facility] 10Result Comment: [11/26/2016] [facility] 11Result Comment: [11/26/2016] [facility] 12Result Comment: [11/26/2016] [facility] 13Result Comment: [11/26/2016] [facility] 14Result Comment: [11/26/2016] [facility] 15Result Comment: [11/26/2016] [facility] 16Result Comment: [11/26/2016] [facility] 17Result Comment: [11/26/2016] [facility] 18Result Comment: [11/26/2016] [facility] 19Result Comment: [11/26/2016] [facility] 20Result Comment: [11/26/2016] [facility] 21Result Comment: [11/26/2016] [facility] 22Result Comment: [11/26/2016] [facility] 23Result Comment: [11/26/2016] [facility] 24Result Comment: [11/26/2016] [facility] 25Result Comment: [11/26/2016] [facility] 26Result Comment: [11/26/2016] [facility] 27Result Comment: [11/26/2016] [facility] 28Result Comment: [11/26/2016] [facility] 29Result Comment: [11/26/2016] [facility] 30Result Comment: [11/26/2016] [facility] 31Result Comment: [11/26/2016] [facility] 32Result Comment: [11/26/2016] [facility] 33Result Comment: [11/26/2016] [facility] Medications ferrous sulfate 325 mg oral [...]
--- OUTSIDE RECORDS SUMMARY | 2024-05-20 07:30 | XMS_ITS | Continuity of Care Document ---
Author Organization [facility] Address [address] [place] [address]- Care Team Providers Care Study Hall Supervisor Name Role Phone Isaiah Angeles MD Primary Care Physician [phone] [place] [facility] [place](s): 08/13/23 - 08/20/23 [facility] [address] [place] [address]- Encounter Diagnosis Well adult exam(Discharge Diagnosis) - 08/14/23 Speech and language deficits(Discharge Diagnosis) - 08/14/23 Postablative hypothyroidism(Discharge Diagnosis) - 08/14/23 Membranous glomerulonephritis(Discharge Diagnosis) - 08/14/23 Attending Physician: Isaiah Angeles MD Allergies, Adverse Reactions, Alerts Substance Reaction Severity Status riTUXimab 1 Severe Active Adhesive Bandage 2 Rash Active codeine 3 Surgical adhesive ta pe itching Active 1developed anaphylaxis with throat closure sensation and facial swelling needed brief epinephrine drip 2surgical tape allergy as per family 3hives Immunizations Given and Recorded Vaccine Date Status [...] corded tetanus-diphtheria toxoids (Td) 10 08/15/22 Given [id number] bivalent booster vax 07/05/22 Recorded SARS-CoV-2 (COVID-19) [...] Comment: [facility] [place] 2Result Comment: [facility]-[id number] 3Location History: [facility] [place] 4Result Comment: [11/26/2016] [facility] 5Result Comment: [11/26/2016] [facility] 6Result Comment: [11/26/2016] [facility] 7Result Comment: [11/26/2016] [facility] 8Result Comment: [11/26/2016] [facility] 9Result Comment: [11/26/2016] [facility] 10Result Comment: [id number] 11Result Comment: [11/26/2016] [facility] 12Result Comment: [11/26/2016] [facility] 13Result Comment: [11/26/2016] [facility] 14Result Comment: [11/26/2016] [facility] 15Result Comment: [11/26/2016] [facility] 16Result Comment: [11/26/2016] [facility] 17Result Comment: [11/26/2016] [facility] 18Result Comment: [11/26/2016] [facility] 19Result Comment: [11/26/2016] [facility] 20Result Comment: [11/26/2016] [facility] 21Result Comment: [11/26/2016] [facility] 22Result Comment: [11/26/2016] [facility] 23Result Comment: [11/26/2016] [facility] 24Result Comment: [11/26/2016] [facility] 25Result Comment: [11/26/2016] [facility] 26Result Comment: [11/26/2016] [facility] 27Result Comment: [11/26/2016] [facility] 28Result Comment: [11/26/2016] [facility] 29Result Comment: [11/26/2016] [facility] 30Result Comment: [11/26/2016] [facility] 31Result Comment: [11/26/2016] [facility] 32Result Comment: [11/26/2016] [facility] 33Result Comment: [11/26/2016] [facility] 34Result Comment: [11/26/2016] [facility] 35Result Comment: [11/26/2016] [facility] Medications Flovent 110 mcg Inhaler HFA [...] Mouth, Daily, to be taken with the 75mcg liquid daily to total 275mcg daily, # 60 mL, 6 Refills, Maintenance, 07/09/23 16:17:00 EST, [facility], Partial fill upon patient request if the prescription is for a schedule... Start Date: 07/09/23 Status: Ordered levothyroxine 75 mcg (0.075 mg)/mL oral solution 1 mL = 75 mcg, By Mouth, Daily, to be used with the 200mcg dose to total 275 mcg daily, # 30 mL, 6 Refills, Maintenance, 07/09/23 16:16:00 EST, Solution, [facility], Partial fill upon patient request if the prescription is for a schedul... Start Date: 07/09/23 Status: Ordered lidocaine 4% topical film 1 [...] Active Vitamin D deficiency Confirmed Active 1Thoracic Diagnosis Diagnosis Type Effective Dates Health Status Clinical Service Informant Well adult exam Discharge Diagnosis 08/14/23 Speech and language deficits Discharge Diagnosis 08/14/23 Postablative hypothyroidism Discharge Diagnosis 08/14/23 Membranous glomerulonephritis Discharge Diagnosis 08/14/23 Vital Signs Most recent to oldest [Reference Range]: 1 Height 152 cm (08/13/23 3:03 PM) Weight 70.4 kg (08/13/23 3:03 PM) Oxygen Saturation [94-100 %] 100 % (08/13/23 3:03 PM) Pulse Rate [55-90 bpm] 82 bpm (08/13/23 3:03 PM) Body Mass Index [18.5-24.99 kg/m2] 30.47 kg/m2 *>HHI* (08/13/23 3:03 PM) Blood Pressure [90-138/55-84 mm Hg] 129/ 88mm Hg (08/13/23 3:03 PM) Temperature [96.8-100.4 DegF] 98.7 DegF (08/13/23 3:03 PM) Mode of Delivery (Oxygen) Room air (08/13/23 3:03 PM) Blood pressure sites Arm, right (08/13/23 3:03 PM) Temperature Route Oral (08/13/23 3:03 PM) Weight Obtained Via Standing scale (08/13/23 3:03 PM) Social History Social History Type Response Smoking Status Never smoker entered on: 10/24/17 Sex Patient Care team information Care Team Personnel Name: Margaux Vivas RN Position: [facility] RN Member Role: Primary Care Nurse Name: Live Leyva MD Position: [facility] Physician -Physician Practices Member Role: Lifetime Consulting Physician Name: Jeanmarie Lopez MD Position: [facility] Renal MD Member Role: Lifetime Consulting Physician Address: Address: [address] [place], [place] [id number] [facility] [place] [address]- Name: Lashonda Clifford Position: [facility] Outreach Member Role: Lifetime Consulting Physician Name: Tiera Wadsworth RN Position: [facility] RN Member Role: Primary Care Nurse Name: Isaiah Angeles MD Position: [facility] Physician - Primary Care Member Role: PCP Address: Address: [address] [place] [address]- [place] Name: Annalise Lara RN Position: [facility] RN Member Role: Primary Care Nurse Name: Mark Wilkes MD Position: [facility] Renal MD Member Role: Lifetime Consulting Physician Address: Address: [address] [place] [address] [facility] [place] [address]- [place] Name: Bibiana Treviño RN Position: [facility] RN Member Role: Primary Care Nurse Care Team Related Persons Name: MIRA MILLER Address: home [address] [phone] Name: MIRA MILLER Address: [place] Address: home [address] [place] [address] Name: PRATEEK MILLER Address: home [address] [place] [address] Name: BELEN MILLER Address: [place] [address] [place] [address] Name: BELEN MILLER Address: home [address] [place] [address]
--- OUTSIDE RECORDS SUMMARY | 2024-05-20 07:30 | XMS_ITS | Continuity of Care Document ---
Author Organization [facility] Address [address] [place] [address]- Care Team Providers Care Block Captain Name Role Phone Karthik HENLEY, Isaiah Douglas Primary Care Physician [place] [facility] [place](s): 07/26/22 - 08/25/22 [facility] [address] [place] [address]- Allergies, Adverse Reactions, Alerts Substance Reaction Severity Status codeine 1 Surgical adhesive ta pe itching Active Adhesive Bandage 2 Rash Active riTUXimab 3 Severe Active 1hives 2surgical tape allergy as per family 3developed anaphylaxis with throat closure sensation and facial swelling needed brief epinephrine drip Immunizations Given and Recorded Vaccine Date Status Refusal Reason tetanus-diphtheria toxoids (Td) 1 08/15/22 Given [id number] bivalent booster vax 07/05/22 Recorded influenza virus [...] Given Parent Or Guardian Refuses 1Result Comment: [id number] 2Result Comment: [facility] [place] 3Result Comment: [facility]-[id number] 4Location History: [facility] [place] 5Result Comment: [11/26/2016] [facility] 6Result Comment: [11/26/2016] [facility] 7Result Comment: [11/26/2016] [facility] 8Result Comment: [11/26/2016] [facility] 9Result Comment: [11/26/2016] [facility] 10Result Comment: [11/26/2016] [facility] 11Result Comment: [11/26/2016] [facility] 12Result Comment: [11/26/2016] [facility] 13Result Comment: [11/26/2016] [facility] 14Result Comment: [11/26/2016] [facility] 15Result Comment: [11/26/2016] [facility] 16Result Comment: [11/26/2016] [facility] 17Result Comment: [11/26/2016] [facility] 18Result Comment: [11/26/2016] [facility] 19Result Comment: [11/26/2016] [facility] 20Result Comment: [11/26/2016] [facility] 21Result Comment: [11/26/2016] [facility] 22Result Comment: [11/26/2016] [facility] 23Result Comment: [11/26/2016] [facility] 24Result Comment: [11/26/2016] [facility] 25Result Comment: [11/26/2016] [facility] 26Result Comment: [11/26/2016] [facility] 27Result Comment: [11/26/2016] [facility] 28Result Comment: [11/26/2016] [facility] 29Result Comment: [11/26/2016] [facility] 30Result Comment: [11/26/2016] [facility] 31Result Comment: [11/26/2016] [facility] 32Result Comment: [11/26/2016] [facility] 33Result Comment: [11/26/2016] [facility] 34Result Comment: [11/26/2016] [facility] 35Result Comment: [11/26/2016] [facility] Medications Flovent 110 mcg Inhaler HFA [...] EC Tablet Start Date: 04/05/22 Status: Ordered Vitamin D3 50,000 intl units oral capsule 1 capsule = 1,250 mcg, By Mouth, Every week, # 9 capsule, 0 Refills, Maintenance, 07/26/22 12:53:00EST, Capsule, [facility], Partial fill upon patient request if the prescription is for a schedule II opioid drug., 153, cm, 06/19/22 11:... Start Date: 07/26/22 Stop Date: 09/24/22 Status: Ordered Problem List Condition Confirmation Course [...] Name: Margaux Vivas RN Position: [facility] RN Member Role: Primary Care Nurse Name: Live Leyva MD Position: [facility] Physician -Physician Practices Member Role: Lifetime Consulting Physician Name: Jeanmarie Lopez MD Position: [facility] Renal MD Member Role: Lifetime Consulting Physician Address: Address: [address] [place] [address], [address] [facility] [place], [place] [address] Name: Lashonda Clifford Position: [facility] Outreach Member Role: Lifetime Consulting Physician Name: Tiera Wadsworth RN Position: [facility] RN Member Role: Primary Care Nurse Name: Isaiah Angeles MD Position: [facility] Primary Care Physician Member Role: PCP Address: Address: [address] [place] [address]- Name: Annalise Lara RN Position: [facility] RN Member Role: Primary Care Nurse Name: Mark Wilkes MD Position: [facility] Renal MD Member Role: Lifetime Consulting Physician Address: Address: [address] [place] [address] [facility] [place] [address]- Name: Bibiana Treviño RN Position: S RN Member Role: Primary Care Nurse Care Team Related Persons Name: MIRA MILLER Address: [place] [phone] Name: MIRA MILLER Address: [place] [phone] Name: MIRA MILLER Address: [place] [phone] Name: MIRA MILLER Address: [place] [phone] Name: MIRA MILLER Address: [place] [phone] Name: MIRA MILLER Address: [place] [phone] Name: MIRA MILLER Address: [place] [phone] Name: PRATEEK MILLER Address: [address] [address] Name: BELEN MILLER Address: [address] [address] Name: BELEN MILLER Address: [address] [address]
--- OUTSIDE RECORDS SUMMARY | 2024-05-20 07:30 | XMS_ITS | Continuity of Care Document ---
Author Organization [facility] Address [address] [place] [address]- Care Team Providers Care Receiver Bulk System Name Role Phone Karthik HENLEY, Isaiah Douglas Primary Care Physician En[place] [facility] [place] Date(s): 07/13/20 - 08/12/20 [facility] Adult [address] [place] [address]- Allergies, Adverse Reactions, Alerts Substance Reaction Severity [...] rded Haemophilus B-Hepatitis B Vaccine 28 96 Faered rded Haemophilus B-Hepatitis B Vaccine 29 96 Fareed rded Haemophilus B-Hepatitis B Vaccine 30 96 Fareed rded hepatitis B pediatric vaccine 31 96 Recorded hepatitis B pediatric vaccine 32 96 Recorded hepatitis B pediatric vaccine 33 96 Recorded Not Given Vaccine Date Status Refusal Reason pneumococcal 23-valent vaccine 04/26/19 Not Given Parent Or Guardian Refuses 1Result Comment: [facility]-[id number] 2Location History: [facility] [place] 3Result Comment: [11/26/2016] [facility] 4Result Comment: [11/26/2016] [facility] 5Result Comment: [11/26/2016] [facility] 6Result Comment: [11/26/2016] [facility] 7Result Comment: [11/26/2016] [facility] 8Result Comment: [11/26/2016] [facility] 9Result Comment: [11/26/2016] [facility] 10Result Comment: [11/26/2016] [facility] 11Result Comment: [11/26/2016] [facility] 12Result Comment: [11/26/2016] [facility] 13Result Comment: [11/26/2016] [facility] 14Result Comment: [11/26/2016] [facility] 15Result Comment: [11/26/2016] [facility] 16Result Comment: [11/26/2016] [facility] 17Result Comment: [11/26/2016] [facility] 18Result Comment: [11/26/2016] [facility] 19Result Comment: [11/26/2016] [facility] 20Result Comment: [11/26/2016] [facility] 21Result Comment: [11/26/2016] [facility] 22Result Comment: [11/26/2016] [facility] 23Result Comment: [11/26/2016] [facility] 24Result Comment: [11/26/2016] [facility] 25Result Comment: [11/26/2016] [facility] 26Result Comment: [11/26/2016] [facility] 27Result Comment: [11/26/2016] [facility] 28Result Comment: [11/26/2016] [facility] 29Result Comment: [11/26/2016] [facility] 30Result Comment: [11/26/2016] [facility] 31Result Comment: [11/26/2016] [facility] 32Result Comment: [11/26/2016] [facility] 33Result Comment: [11/26/2016] [facility] Medications carvedilol 12.5 mg oral tablet [...]
[2024-05-20 07:31] VITALS: BP 143/98; PULSE 83; RESP 16; TEMP 36.4; O2SAT 100
--- OUTSIDE RECORDS SUMMARY | 2024-05-20 07:31 | XMS_ITS | Continuity of Care Document ---
Author Organization [facility] Address [address] [place] [address]- Care Team Providers Care Elephant Keeper Name Role Phone Isaiah Angeles MD Primary Care Physician Encounter [facility] [place] Date(s): 05/16/23 - 05/23/23 [facility] Adult [address] [place] [address]- Attending Physician: Isaiah Angeles MD Allergies, Adverse [...] corded tetanus-diphtheria toxoids (Td) 10 08/15/22 Given [id number] bivalent booster vax 07/05/22 Recorded SARS-CoV-2 (COVID-19) [...] Comment: [facility] [place] 2Result Comment: [facility]-[id number] 3Location History: [facility] [place] 4Result Comment: [11/26/2016] [facility] 5Result Comment: [11/26/2016] [facility] 6Result Comment: [11/26/2016] [facility] 7Result Comment: [11/26/2016] [facility] 8Result Comment: [11/26/2016] [facility] 9Result Comment: [11/26/2016] [facility] 10Result Comment: [id number] 11Result Comment: [11/26/2016] [facility] 12Result Comment: [11/26/2016] [facility] 13Result Comment: [11/26/2016] [facility] 14Result Comment: [11/26/2016] [facility] 15Result Comment: [11/26/2016] [facility] 16Result Comment: [11/26/2016] [facility] 17Result Comment: [11/26/2016] [facility] 18Result Comment: [11/26/2016] [facility] 19Result Comment: [11/26/2016] [facility] 20Result Comment: [11/26/2016] [facility] 21Result Comment: [11/26/2016] [facility] 22Result Comment: [11/26/2016] [facility] 23Result Comment: [11/26/2016] [facility] 24Result Comment: [11/26/2016] [facility] 25Result Comment: [11/26/2016] [facility] 26Result Comment: [11/26/2016] [facility] 27Result Comment: [11/26/2016] [facility] 28Result Comment: [11/26/2016] [facility] 29Result Comment: [11/26/2016] [facility] 30Result Comment: [11/26/2016] [facility] 31Result Comment: [11/26/2016] [facility] 32Result Comment: [11/26/2016] [facility] 33Result Comment: [11/26/2016] [facility] 34Result Comment: [11/26/2016] [facility] 35Result Comment: [11/26/2016] [facility] Medications Flovent 110 mcg Inhaler HFA [...] Refills, Maintenance, 05/02/23 12:03:00 EDT, [facility], Partial fill upon patient request [...] Active Vitamin D deficiency Confirmed Active 1Thoracic Vital Signs Most recent to oldest [Reference Range]: 1 Height 152 cm (05/16/23 3:06 PM) Weight 68 kg (05/16/23 3:06 PM) Oxygen Saturation [94-100 %] 97 % (05/16/23 3:06 PM) Pulse Rate [55-90 bpm] 72 bpm (05/16/23 3:06 PM) Body Mass Index [18.5-24.99 kg/m2] 29.43 kg/m2 *H* (05/16/23 3:06 PM) Blood Pressure [90-138/55-84 mm Hg] 133/ 82mm Hg (05/16/23 3:06 PM) Mode of Delivery (Oxygen) Room air (05/16/23 3:06 PM) Blood pressure sites Arm, left (05/16/23 3:06 PM) Weight Obtained Via Standing scale (05/16/23 3:06 PM) Social History Social History Type Response [...] Member Role: Lifetime Consulting Physician Address: Address: [address] [place] [address], [facility] [address] [facility] [place] [address]- Name: Lashonda Clifford Position: [facility] Outreach Member Role: Lifetime Consulting Physician Name: Tiera Wadsworth RN Position: [facility] RN Member Role: Primary Care Nurse Name: Isaiah Angeles MD Position: [facility] Physician - Primary Care Member Role: PCP Address: Address: [address] [place] [address]- [place] Name: Annalise Lara RN Position: [facility] RN Member Role: Primary Care Nurse Name: Mark Wilkes MD Position: [facility] Renal MD Member Role: Lifetime Consulting Physician Address: Address: [address] [place] [address] [facility] [place] [address]- Name: Bibiana Treviño RN Position: [facility] RN Member Role: Primary Care Nurse Care Team Related Persons Name: MIRA MILLER Address: [address] [id number] Name: MIRA MILLER Address: [place] Address: [address] [place] [address] [place] Name: PRATEEK MILLER Address: [address] [place] [address] Name: BELEN MILLER Address: [address] [place] [address] Name: BELEN MILLER Address: [address] [place] [address]
--- OUTSIDE RECORDS SUMMARY | 2024-05-20 07:31 | XMS_ITS | Continuity of Care Document ---
Author Organization [facility] Ethan lt Address [address] [place] [address]- Care Team Providers Care Vocational Evaluator Name Role Phone Karthik HENLEY, Isaiah Douglas Primary Care Physician [phone] Encounter [facility] Date(s): 04/03/21 - 05/03/21 [facility] Adult [address] [place] [address]- Allergies, Adverse Reactions, Alerts Substance Reaction Severity [...] Given Parent Or Guardian Refuses 1Result Comment: [facility]-[id number] 2Location History: [facility] [place] 3Result Comment: [11/26/2016] [facility] 4Result Comment: [11/26/2016] [facility] 5Result Comment: [11/26/2016] [facility] 6Result Comment: [11/26/2016] [facility] 7Result Comment: [11/26/2016] [facility] 8Result Comment: [11/26/2016] [facility] 9Result Comment: [11/26/2016] [facility] 10Result Comment: [11/26/2016] [facility] 11Result Comment: [11/26/2016] [facility] 12Result Comment: [11/26/2016] [facility] 13Result Comment: [11/26/2016] [facility] 14Result Comment: [11/26/2016] [facility] 15Result Comment: [11/26/2016] [facility] 16Result Comment: [11/26/2016] [facility] 17Result Comment: [11/26/2016] [facility] 18Result Comment: [11/26/2016] [facility] 19Result Comment: [11/26/2016] [facility] 20Result Comment: [11/26/2016] [facility] 21Result Comment: [11/26/2016] [facility] 22Result Comment: [11/26/2016] [facility] 23Result Comment: [11/26/2016] [facility] 24Result Comment: [11/26/2016] [facility] 25Result Comment: [11/26/2016] [facility] 26Result Comment: [11/26/2016] [facility] 27Result Comment: [11/26/2016] [facility] 28Result Comment: [11/26/2016] [facility] 29Result Comment: [11/26/2016] [facility] 30Result Comment: [11/26/2016] [facility] 31Result Comment: [11/26/2016] [facility] 32Result Comment: [11/26/2016] [facility] 33Result Comment: [11/26/2016] [facility] Medications levothyroxine 125 mcg (0.125 mg) [...]
--- OUTSIDE RECORDS SUMMARY | 2024-05-20 07:31 | XMS_ITS | Continuity of Care Document ---
Author Organization [facility] Ethan lt Address [address] [place] [address]- Care Team Providers Care Soldering Machine Operator Name Role Phone Karthik HENLEY, Isaiah Douglas Primary Care Physician Encounter [facility] [place] Date(s): 07/28/21 - 08/27/21 [facility] Adult [address] [place] [address]- Allergies, Adverse Reactions, Alerts Substance Reaction Severity [...] Parent Or Guardian Refuses 1Result Comment: [facility]-[id number] 2Location History: [facility] [place] 3Result Comment: [11/26/2016] [facility] 4Result Comment: [11/26/2016] [facility] 5Result Comment: [11/26/2016] [facility] 6Result Comment: [11/26/2016] [facility] 7Result Comment: [11/26/2016] [facility] 8Result Comment: [11/26/2016] [facility] 9Result Comment: [11/26/2016] [facility] 10Result Comment: [11/26/2016] [facility] 11Result Comment: [11/26/2016] [facility] 12Result Comment: [11/26/2016] [facility] 13Result Comment: [11/26/2016] [facility] 14Result Comment: [11/26/2016] [facility] 15Result Comment: [11/26/2016] [facility] 16Result Comment: [11/26/2016] [facility] 17Result Comment: [11/26/2016] [facility] 18Result Comment: [11/26/2016] [facility] 19Result Comment: [11/26/2016] [facility] 20Result Comment: [11/26/2016] [facility] 21Result Comment: [11/26/2016] [facility] 22Result Comment: [11/26/2016] [facility] 23Result Comment: [11/26/2016] [facility] 24Result Comment: [11/26/2016] [facility] 25Result Comment: [11/26/2016] [facility] 26Result Comment: [11/26/2016] [facility] 27Result Comment: [11/26/2016] [facility] 28Result Comment: [11/26/2016] [facility] 29Result Comment: [11/26/2016] [facility] 30Result Comment: [11/26/2016] [facility] 31Result Comment: [11/26/2016] [facility] 32Result Comment: [11/26/2016] [facility] 33Result Comment: [11/26/2016] [facility] Medications lidocaine 4% topical film 1 [...]
--- OUTSIDE RECORDS SUMMARY | 2024-05-20 07:31 | XMS_ITS | Continuity of Care Document ---
Author Organization [facility] Ethan lt Address [address] [place] [address]- Care Team Providers Care Motion Picture Projectionist Apprentice Name Role Phone Isaiah Angeles MD Primary Care Physician [phone] Encounter [facility] Date(s): 09/02/20 - 09/09/20 [facility] Adult [address] [place] [address]- Attending Physician: Isaiah Angeles MD Allergies, Adverse [...] Given Parent Or Guardian Refuses 1Result Comment: [facility]-[id number] 2Location History: [facility] [place] 3Result Comment: [11/26/2016] [facility] 4Result Comment: [11/26/2016] [facility] 5Result Comment: [11/26/2016] [facility] 6Result Comment: [11/26/2016] [facility] 7Result Comment: [11/26/2016] [facility] 8Result Comment: [11/26/2016] [facility] 9Result Comment: [11/26/2016] [facility] 10Result Comment: [11/26/2016] [facility] 11Result Comment: [11/26/2016] [facility] 12Result Comment: [11/26/2016] [facility] 13Result Comment: [11/26/2016] [facility] 14Result Comment: [11/26/2016] [facility] 15Result Comment: [11/26/2016] [facility] 16Result Comment: [11/26/2016] [facility] 17Result Comment: [11/26/2016] [facility] 18Result Comment: [11/26/2016] [facility] 19Result Comment: [11/26/2016] [facility] 20Result Comment: [11/26/2016] [facility] 21Result Comment: [11/26/2016] [facility] 22Result Comment: [11/26/2016] [facility] 23Result Comment: [11/26/2016] [facility] 24Result Comment: [11/26/2016] [facility] 25Result Comment: [11/26/2016] [facility] 26Result Comment: [11/26/2016] [facility] 27Result Comment: [11/26/2016] [facility] 28Result Comment: [11/26/2016] [facility] 29Result Comment: [11/26/2016] [facility] 30Result Comment: [11/26/2016] [facility] 31Result Comment: [11/26/2016] [facility] 32Result Comment: [11/26/2016] [facility] 33Result Comment: [11/26/2016] [facility] Medications carvedilol 12.5 mg oral tablet [...] Route Start Date: 10/22/19 Status: Ordered levothyroxine 125 mcg (0.125 mg) oral tablet 2 tablet = 250 mcg, By Mouth, Daily, # 180 tablet, 4 Refills, Maintenance, 09/05/20 7:00:00 EST, Tablet, [facility], Partial fill upon patient request if the prescription is for a schedule II opioid drug., 155, cm, 09/02/20 7:03:00 EST,... Start Date: 09/05/20 Status: Ordered lidocaine 4% topical film 1 [...] recent to oldest [Reference Range]: 1 Height 155 cm (09/02/20 7:03 AM) Social History Social History Type Response Smoking Status Never smoker entered on: 10/24/17 Sex
--- OUTSIDE RECORDS SUMMARY | 2024-05-20 07:31 | XMS_ITS | Continuity of Care Document ---
Author Organization [facility] Address [address] [place] [address]- Care Team Providers Care Api Developer Name Role Phone Karthik HENLEY, Isaiah Douglas Primary Care Physician Encounter [facility] Date(s): 07/26/22 - 08/25/22 [facility] [address] [place] [address] [id number] Allergies, Adverse Reactions, Alerts Substance Reaction Severity Status codeine 1 Surgical adhesive ta pe itching Active Adhesive Bandage 2 Rash Active riTUXimab 3 Severe Active 1hives 2surgical tape allergy as per family 3developed anaphylaxis with throat closure sensation and facial swelling needed brief epinephrine drip Immunizations Given and Recorded Vaccine Date Status Refusal Reason tetanus-diphtheria toxoids (Td) 1 08/15/22 Given [id number] bivalent booster vax 07/05/22 Recorded influenza virus [...] corded Haemophilus B-Hepatitis B Vaccine 29 06/16/97 Farede rded Haemophilus B-Hepatitis B Vaccine 30 96 [...] Given Parent Or Guardian Refuses 1Result Comment: [id number] 2Result Comment: [facility] [place] 3Result Comment: [facility]-[id number] 4Location History: [facility] [place] 5Result Comment: [11/26/2016] [facility] 6Result Comment: [11/26/2016] [facility] 7Result Comment: [11/26/2016] [facility] 8Result Comment: [11/26/2016] [facility] 9Result Comment: [11/26/2016] [facility] 10Result Comment: [11/26/2016] [facility] 11Result Comment: [11/26/2016] [facility] 12Result Comment: [11/26/2016] [facility] 13Result Comment: [11/26/2016] [facility] 14Result Comment: [11/26/2016] [facility] 15Result Comment: [11/26/2016] [facility] 16Result Comment: [11/26/2016] [facility] 17Result Comment: [11/26/2016] [facility] 18Result Comment: [11/26/2016] [facility] 19Result Comment: [11/26/2016] [facility] 20Result Comment: [11/26/2016] [facility] 21Result Comment: [11/26/2016] [facility] 22Result Comment: [11/26/2016] [facility] 23Result Comment: [11/26/2016] [facility] 24Result Comment: [11/26/2016] [facility] 25Result Comment: [11/26/2016] [facility] 26Result Comment: [11/26/2016] [facility] 27Result Comment: [11/26/2016] [facility] 28Result Comment: [11/26/2016] [facility] 29Result Comment: [11/26/2016] [facility] 30Result Comment: [11/26/2016] [facility] 31Result Comment: [11/26/2016] [facility] 32Result Comment: [11/26/2016] [facility] 33Result Comment: [11/26/2016] [facility] 34Result Comment: [11/26/2016] [facility] 35Result Comment: [11/26/2016] [facility] Medications Flovent 110 mcg Inhaler HFA [...] Team Personnel Name: Margaux Vivas RN Position: [facility] RN Member Role: Primary Care Nurse Name: Live Leyva MD Position: [facility] Physician -Physician Practices Member Role: Lifetime Consulting Physician Name: Jeanmarie Lopez MD Position: [facility] Renal MD Member Role: Lifetime Consulting Physician Address: Address: [address] [place] [address], [address] [facility] [place], [place] [address] Name: Lashonda Clifford Position: [facility] Outreach Member Role: Lifetime Consulting Physician Name: Tiera Wadsworth RN Position: [facility] RN Member Role: Primary Care Nurse Name: Isaiah Angeles MD Position: [facility] Primary Care Physician Member Role: PCP Address: Address: [address] [place] [address]- Name: Annalise Lara RN Position: [facility] RN Member Role: Primary Care Nurse Name: Mark Wilkes MD Position: [facility] Renal MD Member Role: Lifetime Consulting Physician Address: Address: [address] [place] [address] [facility] [place] [address]- Name: Bibiana Treviño RN Position: S RN Member Role: Primary Care Nurse Care Team Related Persons Name: MIRA MILLER Address: [place] [phone] Name: MIRA MILLER Address: [place] [phone] Name: MIRA MILLER Address: [place] [phone] Name: MIRA MILLER Address: [place] [phone] Name: MIRA MILLER Address: [place] [phone] Name: MIRA MILLER Address: [place] [phone] Name: MIRA MILLER Address: [place] [phone] Name: PRATEEK MILLER Address: [address] [address] Name: BELEN MILLER Address: [address] [address] Name: BELEN MILLER Address: [address] [address]
--- OUTSIDE RECORDS SUMMARY | 2024-05-20 07:31 | XMS_ITS | Continuity of Care Document ---
Author Organization [facility] Ethan lt Address [address] [place] [address]- Care Team Providers Care Material Damage Appraiser Name Role Phone Karthik HENLEY, Isaiah Douglas Primary Care Physician [phone] Encounter [facility] Date(s): 04/12/22 - 05/12/22 [facility] Adult [address] [place] [address]- Allergies, Adverse Reactions, Alerts Substance Reaction Severity [...] Parent Or Guardian Refuses 1Result Comment: [facility]-[id number] 2Location History: [facility] [place] 3Result Comment: [11/26/2016] [facility] 4Result Comment: [11/26/2016] [facility] 5Result Comment: [11/26/2016] [facility] 6Result Comment: [11/26/2016] [facility] 7Result Comment: [11/26/2016] [facility] 8Result Comment: [11/26/2016] [facility] 9Result Comment: [11/26/2016] [facility] 10Result Comment: [11/26/2016] [facility] 11Result Comment: [11/26/2016] [facility] 12Result Comment: [11/26/2016] [facility] 13Result Comment: [11/26/2016] [facility] 14Result Comment: [11/26/2016] [facility] 15Result Comment: [11/26/2016] [facility] 16Result Comment: [11/26/2016] [facility] 17Result Comment: [11/26/2016] [facility] 18Result Comment: [11/26/2016] [facility] 19Result Comment: [11/26/2016] [facility] 20Result Comment: [11/26/2016] [facility] 21Result Comment: [11/26/2016] [facility] 22Result Comment: [11/26/2016] [facility] 23Result Comment: [11/26/2016] [facility] 24Result Comment: [11/26/2016] [facility] 25Result Comment: [11/26/2016] [facility] 26Result Comment: [11/26/2016] [facility] 27Result Comment: [11/26/2016] [facility] 28Result Comment: [11/26/2016] [facility] 29Result Comment: [11/26/2016] [facility] 30Result Comment: [11/26/2016] [facility] 31Result Comment: [11/26/2016] [facility] 32Result Comment: [11/26/2016] [facility] 33Result Comment: [11/26/2016] [facility] Medications Flovent 110 mcg Inhaler HFA [...] on: 10/24/17 Sex Care Team Personnel Name: Karthik HENLEY, Isaiah Dogulas Address: [address] [place] [id number]
--- OUTSIDE RECORDS SUMMARY | 2024-05-20 07:31 | XMS_ITS | Continuity of Care Document ---
Author Organization [facility] Ethan lt Address [address] [place] [address]- Care Team Providers Care Car Sealer Name Role Phone Karthik HENLEY, Isaiah Douglas Primary Care Physician Encounter [facility] Date(s): 06/20/21 - 07/20/21 [facility] Adult [address] [place] [address]- Allergies, Adverse Reactions, Alerts Substance Reaction Severity [...] Parent Or Guardian Refuses 1Result Comment: [facility]-[id number] 2Location History: [facility] [place] 3Result Comment: [11/26/2016] [facility] 4Result Comment: [11/26/2016] [facility] 5Result Comment: [11/26/2016] [facility] 6Result Comment: [11/26/2016] [facility] 7Result Comment: [11/26/2016] [facility] 8Result Comment: [11/26/2016] [facility] 9Result Comment: [11/26/2016] [facility] 10Result Comment: [11/26/2016] [facility] 11Result Comment: [11/26/2016] [facility] 12Result Comment: [11/26/2016] [facility] 13Result Comment: [11/26/2016] [facility] 14Result Comment: [11/26/2016] [facility] 15Result Comment: [11/26/2016] [facility] 16Result Comment: [11/26/2016] [facility] 17Result Comment: [11/26/2016] [facility] 18Result Comment: [11/26/2016] [facility] 19Result Comment: [11/26/2016] [facility] 20Result Comment: [11/26/2016] [facility] 21Result Comment: [11/26/2016] [facility] 22Result Comment: [11/26/2016] [facility] 23Result Comment: [11/26/2016] [facility] 24Result Comment: [11/26/2016] [facility] 25Result Comment: [11/26/2016] [facility] 26Result Comment: [11/26/2016] [facility] 27Result Comment: [11/26/2016] [facility] 28Result Comment: [11/26/2016] [facility] 29Result Comment: [11/26/2016] [facility] 30Result Comment: [11/26/2016] [facility] 31Result Comment: [11/26/2016] [facility] 32Result Comment: [11/26/2016] [facility] 33Result Comment: [11/26/2016] [facility] Medications lidocaine 4% topical film 1 [...]
--- OUTSIDE RECORDS SUMMARY | 2024-05-20 07:31 | XMS_ITS | Continuity of Care Document ---
Author Organization [facility] Address [address] [place] [address]- Care Team Providers Care Sports Medicine Masseur Name Role Phone Karthik HENLEY, Isaiah Douglas Primary Care Physician [place] [facility] 12/12/23 - 01/11/24 [facility] [address] [place] [address]- Allergies, Adverse Reactions, Alerts Substance Reaction Severity [...] corded tetanus-diphtheria toxoids (Td) 10 08/15/22 Given [id number] bivalent booster vax 07/05/22 Recorded SARS-CoV-2 (COVID-19) [...] Comment: [facility] [place] 2Result Comment: [facility]-[id number] 3Location History: [facility] [place] 4Result Comment: [11/26/2016] [facility] 5Result Comment: [11/26/2016] [facility] 6Result Comment: [11/26/2016] [facility] 7Result Comment: [11/26/2016] [facility] 8Result Comment: [11/26/2016] [facility] 9Result Comment: [11/26/2016] [facility] 10Result Comment: [id number] 11Result Comment: [11/26/2016] [facility] 12Result Comment: [11/26/2016] [facility] 13Result Comment: [11/26/2016] [facility] 14Result Comment: [11/26/2016] [facility] 15Result Comment: [11/26/2016] [facility] 16Result Comment: [11/26/2016] [facility] 17Result Comment: [11/26/2016] [facility] 18Result Comment: [11/26/2016] [facility] 19Result Comment: [11/26/2016] [facility] 20Result Comment: [11/26/2016] [facility] 21Result Comment: [11/26/2016] [facility] 22Result Comment: [11/26/2016] [facility] 23Result Comment: [11/26/2016] [facility] 24Result Comment: [11/26/2016] [facility] 25Result Comment: [11/26/2016] [facility] 26Result Comment: [11/26/2016] [facility] 27Result Comment: [11/26/2016] [facility] 28Result Comment: [11/26/2016] [facility] 29Result Comment: [11/26/2016] [facility] 30Result Comment: [11/26/2016] [facility] 31Result Comment: [11/26/2016] [facility] 32Result Comment: [11/26/2016] [facility] 33Result Comment: [11/26/2016] [facility] 34Result Comment: [11/26/2016] [facility] 35Result Comment: [11/26/2016] [facility] Medications [...] tablet, 6 Refills, Maintenance, ... Start Date: 10/17/23 Stop Date: 05/14/24 Status: Ordered levothyroxine 0.1 mg oral tablet [...] before or 4 hrs after,... Start Date: 10/17/23 Stop Date: 05/14/24 Status: Ordered lidocaine 4% topical film 1 [...] Start Date: 05/16/23 Status: Ordered Vitamin D3 2000 intl units oral tablet 2 tablet, By Mouth, Daily, # 180 tablet, 1 Refills, Maintenance, 12/30/23 18:43:00 EDT, [facility], 152, cm, 10/21/23 13:31:00 EST, Height, 69, kg, 05/11/23 11:35:00 EDT, Dry Weight Start Date: 12/30/23 Status: Ordered Problem List Condition Confirmation Course [...] Team Personnel Name: Live Leyva MD Position: [facility] Physician -Physician Practices Member Role: Lifetime Consulting Physician Name: Jeanmarie Lopez MD Position: [facility] Renal MD Member Role: Lifetime Consulting Physician Address: Address: [address] [place] [address] [address] [facility] [address]- Name: Lashonda Clifford Position: [facility] Outreach Member Role: Lifetime Consulting Physician Name: Tiera Wadswotrh RN Position: [facility] RN Member Role: Primary Care Nurse Name: John Davila DO Position: [facility] Renal MD Member Role: Lifetime Consulting Physician Address: Address: [address] [place] [address] [address] [facility] [place] [place] [address]- [place] Name: Karthik HENLEY, Isaiah Douglas Position: [facility] Physician - Primary Care Member Role: PCP Address: Address: [address] [place] [address]- [place] Name: Annalise Lara RN Position: [facility] RN Member Role: Primary Care Nurse Name: Mark Wilkes MD Position: [facility] Renal MD Member Role: Lifetime Consulting Physician Address: Address: [address] [place] [address] [facility] [place] [address]- [place] Name: Bibiana Treviño RN Position: [facility] RN Member Role: Primary Care Nurse Care Team Related Persons Name: MIRA MILLER Address: home [address] [place] [place] [phone] Name: MIRA MILLER Address: [place] Address: home [address] [place] [address] Name: PRATEEK MILLER Address: [address] [place] [address] Name: BELEN MILLER Address: [address] [place] [address] Name: BELEN MILLER Address: home [address] [place] [address]"
--- OUTSIDE RECORDS SUMMARY | 2024-05-20 07:31 | XMS_ITS | Continuity of Care Document ---
Author Organization [facility] Address [address] [place] [address]- Care Team Providers Care Director Peoplesoft Name Role Phone Karthik HENLEY, Isaiah Douglas Primary Care Physician Encounter [facility] Date(s): 10/21/23 - 11/20/23 [facility] [address] [place] [address]- Attending Physician: Segundo Martinez Admitting Physician: AdmtrSegundo Referring Physician: Admtr Ar8 Allergies, Adverse Reactions, Alerts Substance Reaction [...] corded tetanus-diphtheria toxoids (Td) 10 08/15/22 Given [id number] bivalent booster vax 07/05/22 Recorded SARS-CoV-2 (COVID-19) [...] Comment: [facility] [place] 2Result Comment: [facility]-[id number] 3Location History: [facility] [place] 4Result Comment: [11/26/2016] [facility] 5Result Comment: [11/26/2016] [facility] 6Result Comment: [11/26/2016] [facility] 7Result Comment: [11/26/2016] [facility] 8Result Comment: [11/26/2016] [facility] 9Result Comment: [11/26/2016] [facility] 10Result Comment: [id number] 11Result Comment: [11/26/2016] [facility] 12Result Comment: [11/26/2016] [facility] 13Result Comment: [11/26/2016] [facility] 14Result Comment: [11/26/2016] [facility] 15Result Comment: [11/26/2016] [facility] 16Result Comment: [11/26/2016] [facility] 17Result Comment: [11/26/2016] [facility] 18Result Comment: [11/26/2016] [facility] 19Result Comment: [11/26/2016] [facility] 20Result Comment: [11/26/2016] [facility] 21Result Comment: [11/26/2016] [facility] 22Result Comment: [11/26/2016] [facility] 23Result Comment: [11/26/2016] [facility] 24Result Comment: [11/26/2016] [facility] 25Result Comment: [11/26/2016] [facility] 26Result Comment: [11/26/2016] [facility] 27Result Comment: [11/26/2016] [facility] 28Result Comment: [11/26/2016] [facility] 29Result Comment: [11/26/2016] [facility] 30Result Comment: [11/26/2016] [facility] 31Result Comment: [11/26/2016] [facility] 32Result Comment: [11/26/2016] [facility] 33Result Comment: [11/26/2016] [facility] 34Result Comment: [11/26/2016] [facility] 35Result Comment: [11/26/2016] [facility] Medications Flovent 110 mcg Inhaler HFA [...] Team Personnel Name: Live Leyva MD Position: [facility] Physician -Physician Practices Member Role: Lifetime Consulting Physician Name: Jeanmarie Lopez MD Position: [facility] Renal MD Member Role: Lifetime Consulting Physician Address: Address: [address] [place] [address] [address] [place] [address]- Name: Lashonda Clifford Position: [facility] Outreach Member Role: Lifetime Consulting Physician Name: Tiera Wadsworth RN Position: [facility] RN Member Role: Primary Care Nurse Name: Isaiah Angeles MD Position: [facility] Physician - Primary Care Member Role: PCP Address: Address: [address] [place] [address]- [place] Name: Annalise Lara RN Position: S RN Member Role: Primary Care Nurse Name: Mark Wilkes MD Position: [facility] MD Member Role: Lifetime Consulting Physician Address: Address: [address] [place] [address] [facility] [address]- Name: Bibiana Treviño RN Position: S RN Member Role: Primary Care Nurse Care Team Related Persons Name: MIRA MILLER Address: home [address] [id number] Name: MIRA MILLER Address: [place] Address: home [address] [place] [address] [place] Name: PRATEEK MILLER Address: home [address] [place] [address] Name: BELEN MILLER Address: home [address] [place] [address] Name: BELEN MILLER Address: home [address] [place] [address]
--- OUTSIDE RECORDS SUMMARY | 2024-05-20 07:31 | XMS_ITS | Continuity of Care Document ---
Author Organization [facility] Address [address] [place] [address]- Care Team Providers Care Hand Sprayer Name Role Phone Isaiah Angeles MD Primary Care Physician [facility] [facility] Date(s): 07/21/23 - 11/17/23 [facility] [address] [place] [address]- Attending Physician: Martínez Delaney MD Admitting Physician: Martínez Delaney MD Referring Physician: Isaiah Angeles MD Allergies, [...] Re corded influenza virus vaccine, inactivated 9 11/18/10 Re corded tetanus-diphtheria toxoids (Td) 10 08/15/22 Given [id number] bivalent booster vax 07/05/22 Recorded SARS-CoV-2 (COVID-19) [...] rded Haemophilus B-Hepatitis B Vaccine 32 96 Afreed rded hepatitis B pediatric vaccine 33 96 Recorded hepatitis B pediatric vaccine 34 96 Recorded hepatitis B pediatric vaccine 35 96 Recorded 1Result Comment: [facility] [place] 2Result Comment: [facility]-[id number] 3Location History: [facility] [place] 4Result Comment: [11/26/2016] [facility] 5Result Comment: [11/26/2016] [facility] 6Result Comment: [11/26/2016] [facility] 7Result Comment: [11/26/2016] [facility] 8Result Comment: [11/26/2016] [facility] 9Result Comment: [11/26/2016] [facility] 10Result Comment: [id number] 11Result Comment: [11/26/2016] [facility] 12Result Comment: [11/26/2016] [facility] 13Result Comment: [11/26/2016] [facility] 14Result Comment: [11/26/2016] [facility] 15Result Comment: [11/26/2016] [facility] 16Result Comment: [11/26/2016] [facility] 17Result Comment: [11/26/2016] [facility] 18Result Comment: [11/26/2016] [facility] 19Result Comment: [11/26/2016] [facility] 20Result Comment: [11/26/2016] [facility] 21Result Comment: [11/26/2016] [facility] 22Result Comment: [11/26/2016] [facility] 23Result Comment: [11/26/2016] [facility] 24Result Comment: [11/26/2016] [facility] 25Result Comment: [11/26/2016] [facility] 26Result Comment: [11/26/2016] [facility] 27Result Comment: [11/26/2016] [facility] 28Result Comment: [11/26/2016] [facility] 29Result Comment: [11/26/2016] [facility] 30Result Comment: [11/26/2016] [facility] 31Result Comment: [11/26/2016] [facility] 32Result Comment: [11/26/2016] [facility] 33Result Comment: [11/26/2016] [facility] 34Result Comment: [11/26/2016] [facility] 35Result Comment: [11/26/2016] [facility] Medications Flovent 110 mcg Inhaler HFA [...] Team Personnel Name: Live Leyva MD Position: [facility] Physician -Physician Practices Member Role: Lifetime Consulting Physician Name: Jeanmarie Lopez MD Position: [facility] Renal MD Member Role: Lifetime Consulting Physician Address: Address: [address] [place] [address] [address] [facility] [place] [address]- Name: Lashonda Clifford Position: [facility] Outreach Member Role: Lifetime Consulting Physician Name: Tiera Wadsworth RN Position: [facility] RN Member Role: Primary Care Nurse Name: Karthik HENLEY, Isaiah Douglas Position: [facility] Physician - Primary Care Member Role: PCP Address: Address: [address] [place] [address]- [place] Name: Annalise Lara RN Position: [facility] RN Member Role: Primary Care Nurse Name: Mark Wilkes MD Position: [facility] Renal MD Member Role: Lifetime Consulting Physician Address: Address: [address] [place] [address] [facility] [place] [address]- Name: Bibiana Treviño RN Position: [facility] RN Member Role: Primary Care Nurse Care Team Related Persons Name: MIRA MILLER Address: home [address] [phone] Name: MIRA MILLER Address: [place] Address: [address] [place] [address] Name: PRATEEK MILLER Address: home [address] [place] [address] Name: BELEN MILLER Address: [address] [place] [address] Name: BELEN MILLER Address: home [address] [place] [address]
--- OUTSIDE RECORDS SUMMARY | 2024-05-20 07:31 | XMS_ITS | Continuity of Care Document ---
Author Organization [facility] Ethan lt Address [address] [place] [address]- Care Team Providers Care Tandem Mill Sticker Name Role Phone Karthik HENLEY, Isaiah Douglas Primary Care Physician Encounter [facility] [place] Date(s): 06/05/22 - 07/05/22 [facility] [address] [place] [address]- Allergies, Adverse Reactions, Alerts Substance Reaction Severity [...] Comment: [facility] at [facility] [place] 2Result Comment: [facility]-[id number] 3Location History: [facility] [place] 4Result Comment: [11/26/2016] [facility] 5Result Comment: [11/26/2016] [facility] 6Result Comment: [11/26/2016] [facility] 7Result Comment: [11/26/2016] [facility] 8Result Comment: [11/26/2016] [facility] 9Result Comment: [11/26/2016] [facility] 10Result Comment: [11/26/2016] [facility] 11Result Comment: [11/26/2016] [facility] 12Result Comment: [11/26/2016] [facility] 13Result Comment: [11/26/2016] [facility] 14Result Comment: [11/26/2016] [facility] 15Result Comment: [11/26/2016] [facility] 16Result Comment: [11/26/2016] [facility] 17Result Comment: [11/26/2016] [facility] 18Result Comment: [11/26/2016] [facility] 19Result Comment: [11/26/2016] [facility] 20Result Comment: [11/26/2016] [facility] 21Result Comment: [11/26/2016] [facility] 22Result Comment: [11/26/2016] [facility] 23Result Comment: [11/26/2016] [facility] 24Result Comment: [11/26/2016] [facility] 25Result Comment: [11/26/2016] [facility] 26Result Comment: [11/26/2016] [facility] 27Result Comment: [11/26/2016] [facility] 28Result Comment: [11/26/2016] [facility] 29Result Comment: [11/26/2016] [facility] 30Result Comment: [11/26/2016] [facility] 31Result Comment: [11/26/2016] [facility] 32Result Comment: [11/26/2016] [facility] 33Result Comment: [11/26/2016] [facility] 34Result Comment: [11/26/2016] [facility] Medications Flovent 110 mcg Inhaler HFA [...] Personnel Name: Margaux Vivas RN Position: [facility] RN Member Role: Primary Care Nurse Name: Live Leyva MD Position: [facility] Physician -Physician Practices Member Role: Lifetime Consulting Physician Name: Jeanmarie Lopez MD Position: [facility] Renal MD Member Role: Lifetime Consulting Physician Address: Address: [address] [place] [address], [address] [facility] [place] [address] Name: Lashonda Clifford Position: [facility] Outreach Member Role: Lifetime Consulting Physician Name: Tiera Wadsworth RN Position: [facility] RN Member Role: Primary Care Nurse Name: Isaiah Angeles MD Position: [facility] Primary Care Physician Member Role: PCP Address: Address: [address] [place] [address]- Name: Annalise Lara RN Position: [facility] RN Member Role: Primary Care Nurse Name: Mark Wilkes MD Position: [facility] Renal MD Member Role: Lifetime Consulting Physician Address: Address: [address] [place] [address] [facility] [place] [address]- Name: Bibiana Treviño RN Position: [facility] RN Member Role: Primary Care Nurse Care Team Related Persons Name: MIRA MILLER Address: home [address] [phone] Name: AKASHRICARDOJANETHCLAUDETTEE Address: home [address] [phone] Name: AKASHMIRA CARTY Address: [address] [phone] Name: MIRA MILLER Address: [address] [phone] Name: MIRA MILLER Address: [address] [phone] Name: MIRA MILLER Address: [address] [phone] Name: MIRA MILLER Address: [address] [phone] Name: PRATEEK MILLER Address: [address] [address] Name: BELEN MILLER Address: [address] [address] Name: BELEN MILLER Address: [address] [address]
--- OUTSIDE RECORDS SUMMARY | 2024-05-20 07:31 | XMS_ITS | Continuity of Care Document ---
Author Organization [facility] Address [address] [place] [address]- Care Team Providers Care Call Center Agent Name Role Phone Karthik HENLEY, Isaiah Douglas Primary Care Physician [phone] [place] [facility] [place] 04/17/21 - 05/17/21 [facility] [address] [place] [address]- Allergies, Adverse Reactions, Alerts Substance Reaction Severity [...] Given Parent Or Guardian Refuses 1Result Comment: [facility]-[id number] 2[facility] 3Result Comment: [11/26/2016] [facility] 4Result Comment: [11/26/2016] [facility] 5Result Comment: [11/26/2016] [facility] 6Result Comment: [11/26/2016] [facility] 7Result Comment: [11/26/2016] [facility] 8Result Comment: [11/26/2016] [facility] 9Result Comment: [11/26/2016] [facility] 10Result Comment: [11/26/2016] [facility] 11Result Comment: [11/26/2016] [facility] 12Result Comment: [11/26/2016] [facility] 13Result Comment: [11/26/2016] [facility] 14Result Comment: [11/26/2016] [facility] 15Result Comment: [11/26/2016] [facility] 16Result Comment: [11/26/2016] [facility] 17Result Comment: [11/26/2016] [facility] 18Result Comment: [11/26/2016] [facility] 19Result Comment: [11/26/2016] [facility] 20Result Comment: [11/26/2016] [facility] 21Result Comment: [11/26/2016] [facility] 22Result Comment: [11/26/2016] [facility] 23Result Comment: [11/26/2016] [facility] 24Result Comment: [11/26/2016] [facility] 25Result Comment: [11/26/2016] [facility] 26Result Comment: [11/26/2016] [facility] 27Result Comment: [11/26/2016] [facility] 28Result Comment: [11/26/2016] [facility] 29Result Comment: [11/26/2016] [facility] 30Result Comment: [11/26/2016] [facility] 31Result Comment: [11/26/2016] [facility] 32Result Comment: [11/26/2016] [facility] 33Result Comment: [11/26/2016] [facility] Medications levothyroxine 125 mcg (0.125 mg) [...]
--- OUTSIDE RECORDS SUMMARY | 2024-05-20 07:31 | XMS_ITS | Continuity of Care Document ---
Author Organization [facility] Ethan lt Address [address] [place] [address]- Care Team Providers Care Agricultural Sales Representative Name Role Phone Karthik HENLEY, Isaiah Douglas Primary Care Physician [phone] Encounter [facility] Date(s): 03/11/20 - 04/10/20 [facility] [address] [place] [address]- [facility] Allergies, Adverse Reactions, Alerts Substance Reaction Severity [...] Parent Or Guardian Refuses 1Result Comment: [facility]-[id number] 2Location History: [facility] [place] 3Result Comment: [11/26/2016] [facility] 4Result Comment: [11/26/2016] [facility] 5Result Comment: [11/26/2016] [facility] 6Result Comment: [11/26/2016] [facility] 7Result Comment: [11/26/2016] [facility] 8Result Comment: [11/26/2016] [facility] 9Result Comment: [11/26/2016] [facility] 10Result Comment: [11/26/2016] [facility] 11Result Comment: [11/26/2016] [facility] 12Result Comment: [11/26/2016] [facility] 13Result Comment: [11/26/2016] [facility] 14Result Comment: [11/26/2016] [facility] 15Result Comment: [11/26/2016] [facility] 16Result Comment: [11/26/2016] [facility] 17Result Comment: [11/26/2016] [facility] 18Result Comment: [11/26/2016] [facility] 19Result Comment: [11/26/2016] [facility] 20Result Comment: [11/26/2016] [facility] 21Result Comment: [11/26/2016] [facility] 22Result Comment: [11/26/2016] [facility] 23Result Comment: [11/26/2016] [facility] 24Result Comment: [11/26/2016] [facility] 25Result Comment: [11/26/2016] [facility] 26Result Comment: [11/26/2016] [facility] 27Result Comment: [11/26/2016] [facility] 28Result Comment: [11/26/2016] [facility] 29Result Comment: [11/26/2016] [facility] 30Result Comment: [11/26/2016] [facility] 31Result Comment: [11/26/2016] [facility] 32Result Comment: [11/26/2016] [facility] 33Result Comment: [11/26/2016] [facility] Medications acetaminophen-oxyCODONE 325 mg-5 mg oral [...]
--- OUTSIDE RECORDS SUMMARY | 2024-05-20 07:31 | XMS_ITS | Continuity of Care Document ---
Author Organization [facility] Address [address] [place] [address]- Care Team Providers Care Facilities Maintenance Supervisor Name Role Phone Karthik HENLEY, Isaiah Douglas Primary Care Physician Encounter [facility] Date(s): 05/18/22 - 06/17/22 [facility] [address] [place] [id number] Allergies, Adverse Reactions, Alerts Substance Reaction [...] Comment: [facility] [place] 2Result Comment: [id number] 3Location History: [facility] [place] 4Result Comment: [11/26/2016] [facility] 5Result Comment: [11/26/2016] [facility] 6Result Comment: [11/26/2016] [facility] 7Result Comment: [11/26/2016] [facility] 8Result Comment: [11/26/2016] [facility] 9Result Comment: [11/26/2016] [facility] 10Result Comment: [11/26/2016] [facility] 11Result Comment: [11/26/2016] [facility] 12Result Comment: [11/26/2016] [facility] 13Result Comment: [11/26/2016] [facility] 14Result Comment: [11/26/2016] [facility] 15Result Comment: [11/26/2016] [facility] 16Result Comment: [11/26/2016] [facility] 17Result Comment: [11/26/2016] [facility] 18Result Comment: [11/26/2016] [facility] 19Result Comment: [11/26/2016] [facility] 20Result Comment: [11/26/2016] [facility] 21Result Comment: [11/26/2016] [facility] 22Result Comment: [11/26/2016] [facility] 23Result Comment: [11/26/2016] [facility] 24Result Comment: [11/26/2016] [facility] 25Result Comment: [11/26/2016] [facility] 26Result Comment: [11/26/2016] [facility] 27Result Comment: [11/26/2016] [facility] 28Result Comment: [11/26/2016] [facility] 29Result Comment: [11/26/2016] [facility] 30Result Comment: [11/26/2016] [facility] 31Result Comment: [11/26/2016] [facility] 32Result Comment: [11/26/2016] [facility] 33Result Comment: [11/26/2016] [facility] 34Result Comment: [11/26/2016] [facility] Medications Flovent 110 mcg Inhaler HFA [...] Personnel Name: Isaiah Angeles MD Address: Address: [address] [place] [address]-
--- OUTSIDE RECORDS SUMMARY | 2024-05-20 07:31 | XMS_ITS | Continuity of Care Document ---
Author Organization [facility] Address [address] [place] [address]- Care Team Providers Care Security Sales Manager Name Role Phone Isaiah Angeles MD Primary Care Physician En[place] [facility] [place] Date(s): 09/11/21 - 11/02/21 [facility] [address] [place] [address]- Attending Physician: Andrei Womack MD Admitting Physician: [...] Given Parent Or Guardian Refuses 1Result Comment: [facility]-[id number] 2Location History: [facility] [place] 3Result Comment: [11/26/2016] [facility] 4Result Comment: [11/26/2016] [facility] 5Result Comment: [11/26/2016] [facility] 6Result Comment: [11/26/2016] [facility] 7Result Comment: [11/26/2016] [facility] 8Result Comment: [11/26/2016] [facility] 9Result Comment: [11/26/2016] [facility] 10Result Comment: [11/26/2016] [facility] 11Result Comment: [11/26/2016] [facility] 12Result Comment: [11/26/2016] [facility] 13Result Comment: [11/26/2016] [facility] 14Result Comment: [11/26/2016] [facility] 15Result Comment: [11/26/2016] [facility] 16Result Comment: [11/26/2016] [facility] 17Result Comment: [11/26/2016] [facility] 18Result Comment: [11/26/2016] [facility] 19Result Comment: [11/26/2016] [facility] 20Result Comment: [11/26/2016] [facility] 21Result Comment: [11/26/2016] [facility] 22Result Comment: [11/26/2016] [facility] 23Result Comment: [11/26/2016] [facility] 24Result Comment: [11/26/2016] [facility] 25Result Comment: [11/26/2016] [facility] 26Result Comment: [11/26/2016] [facility] 27Result Comment: [11/26/2016] [facility] 28Result Comment: [11/26/2016] [facility] 29Result Comment: [11/26/2016] [facility] 30Result Comment: [11/26/2016] [facility] 31Result Comment: [11/26/2016] [facility] 32Result Comment: [11/26/2016] [facility] 33Result Comment: [11/26/2016] [facility] Medications lidocaine 4% topical film 1 [...]
--- OUTSIDE RECORDS SUMMARY | 2024-05-20 07:31 | XMS_ITS | Continuity of Care Document ---
Author Organization [facility] Ethan lt Address [address] [place] [address]- Care Team Providers Care Armored Machine Operator Name Role Phone Karthik HENLEY, Isaiah Douglas Primary Care Physician [phone] Encounter [facility] Date(s): 11/12/23 - 12/12/23 [facility] Adult [address] [place] [address]- Allergies, Adverse Reactions, Alerts Substance Reaction Severity Status Adhesive Bandage 1 Rash Active riTUXimab 2 Severe Active codeine 3 Surgical adhesive ta pe itching Active 1surgical tape allergy as per family 2developed anaphylaxis with throat closure sensation and facial swelling needed brief epinephrine drip 3hives Immunizations Given and Recorded Vaccine Date [...] corded tetanus-diphtheria toxoids (Td) 10 08/15/22 Given [id number] bivalent booster vax 07/05/22 Recorded SARS-CoV-2 (COVID-19) [...] Comment: [facility] [place] 2Result Comment: [facility]-[id number] 3Location History: [facility] [place] 4Result Comment: [11/26/2016] [facility] 5Result Comment: [11/26/2016] [facility] 6Result Comment: [11/26/2016] [facility] 7Result Comment: [11/26/2016] [facility] 8Result Comment: [11/26/2016] [facility] 9Result Comment: [11/26/2016] [facility] 10Result Comment: [id number] 11Result Comment: [11/26/2016] [facility] 12Result Comment: [11/26/2016] [facility] 13Result Comment: [11/26/2016] [facility] 14Result Comment: [11/26/2016] [facility] 15Result Comment: [11/26/2016] [facility] 16Result Comment: [11/26/2016] [facility] 17Result Comment: [11/26/2016] [facility] 18Result Comment: [11/26/2016] [facility] 19Result Comment: [11/26/2016] [facility] 20Result Comment: [11/26/2016] [facility] 21Result Comment: [11/26/2016] [facility] 22Result Comment: [11/26/2016] [facility] 23Result Comment: [11/26/2016] [facility] 24Result Comment: [11/26/2016] [facility] 25Result Comment: [11/26/2016] [facility] 26Result Comment: [11/26/2016] [facility] 27Result Comment: [11/26/2016] [facility] 28Result Comment: [11/26/2016] [facility] 29Result Comment: [11/26/2016] [facility] 30Result Comment: [11/26/2016] [facility] 31Result Comment: [11/26/2016] [facility] 32Result Comment: [11/26/2016] [facility] 33Result Comment: [11/26/2016] [facility] 34Result Comment: [11/26/2016] [facility] 35Result Comment: [11/26/2016] [facility] Medications [...] Team Personnel Name: Live Leyva MD Position: [facility] Physician -Physician Practices Member Role: Lifetime Consulting Physician Name: Jeanmarie Lopez MD Position: [facility] Renal MD Member Role: Lifetime Consulting Physician Address: Address: [address] [place] [address] [address] [place] [address]- Name: Lashonda Clifford Position: [facility] Outreach Member Role: Lifetime Consulting Physician Name: Tiera Wadsworth RN Position: [facility] RN Member Role: Primary Care Nurse Name: John Davila DO Position: [facility] Renal MD Member Role: Lifetime Consulting Physician Address: Address: [address] [place] [address] [address] [facility] [place] [address]- [place] Name: Karthik HENLEY, Isaiah Douglas Position: [facility] Physician - Primary Care Member Role: PCP Address: Address: [address] [place] [address]- [place] Name: Annalise Lara RN Position: [facility] RN Member Role: Primary Care Nurse Name: Mark Wilkes MD Position: [facility] Renal MD Member Role: Lifetime Consulting Physician Address: Address: [address] [facility] [place] [address]- [place] Name: Bibiana Treviño RN Position: [facility] RN Member Role: Primary Care Nurse Care Team Related Persons Name: MIRA MILLER Address: [place] Address: home [address] [place] [address] Name: MIRA MILLER Address: home [address] [place] [phone] Name: PRATEEK MILLER Address: home [address] [place] [address] Name: BELEN MILLER Address: home [address] [place] [address] Name: BELEN MILLER Address: home [address] [place] [address]
--- OUTSIDE RECORDS SUMMARY | 2024-05-20 07:31 | XMS_ITS | Continuity of Care Document ---
Author Organization [facility] Address [address] [place] [address]- Care Team Providers Care Crew Car Driver Name Role Phone Karthik HENLEY, Isaiah Douglas Primary Care Physician Encounter [facility] Date(s): 04/06/21 - 05/06/21 [facility] [address] [place] [address]- Allergies, Adverse Reactions, Alerts Substance Reaction Severity [...] Parent Or Guardian Refuses 1Result Comment: [facility]-[id number] 2Location History: [facility] [place] 3Result Comment: [11/26/2016] [facility] 4Result Comment: [11/26/2016] [facility] 5Result Comment: [11/26/2016] [facility] 6Result Comment: [11/26/2016] [facility] 7Result Comment: [11/26/2016] [facility] 8Result Comment: [11/26/2016] [facility] 9Result Comment: [11/26/2016] [facility] 10Result Comment: [11/26/2016] [facility] 11Result Comment: [11/26/2016] [facility] 12Result Comment: [11/26/2016] [facility] 13Result Comment: [11/26/2016] [facility] 14Result Comment: [11/26/2016] [facility] 15Result Comment: [11/26/2016] [facility] 16Result Comment: [11/26/2016] [facility] 17Result Comment: [11/26/2016] [facility] 18Result Comment: [11/26/2016] [facility] 19Result Comment: [11/26/2016] [facility] 20Result Comment: [11/26/2016] [facility] 21Result Comment: [11/26/2016] [facility] 22Result Comment: [11/26/2016] [facility] 23Result Comment: [11/26/2016] [facility] 24Result Comment: [11/26/2016] [facility] 25Result Comment: [11/26/2016] [facility] 26Result Comment: [11/26/2016] [facility] 27Result Comment: [11/26/2016] [facility] 28Result Comment: [11/26/2016] [facility] 29Result Comment: [11/26/2016] [facility] 30Result Comment: [11/26/2016] [facility] 31Result Comment: [11/26/2016] [facility] 32Result Comment: [11/26/2016] [facility] 33Result Comment: [11/26/2016] [facility] Medications levothyroxine 125 mcg (0.125 mg) [...]
--- OUTSIDE RECORDS SUMMARY | 2024-05-20 07:31 | XMS_ITS | Continuity of Care Document ---
Author Organization [facility] Ethan lt Address [address] [place] [address]- Care Team Providers Care Bird Raiser Name Role Phone Isaiah Angeles MD Primary Care Physician Encounter [facility] Date(s): 03/01/20 - 03/08/20 [facility] Adult [address] [place] [address]- [facility] Attending Physician: Isaiah Angeles MD Allergies, Adverse [...] Refuses 1Result Comment: [id number] [facility] 3Result Comment: [11/26/2016] [facility] 4Result Comment: [11/26/2016] [facility] 5Result Comment: [11/26/2016] [facility] 6Result Comment: [11/26/2016] [facility] 7Result Comment: [11/26/2016] [facility] 8Result Comment: [11/26/2016] [facility] 9Result Comment: [11/26/2016] [facility] 10Result Comment: [11/26/2016] [facility] 11Result Comment: [11/26/2016] [facility] 12Result Comment: [11/26/2016] [facility] 13Result Comment: [11/26/2016] [facility] 14Result Comment: [11/26/2016] [facility] 15Result Comment: [11/26/2016] [facility] 16Result Comment: [11/26/2016] [facility] 17Result Comment: [11/26/2016] [facility] 18Result Comment: [11/26/2016] [facility] 19Result Comment: [11/26/2016] [facility] 20Result Comment: [11/26/2016] [facility] 21Result Comment: [11/26/2016] [facility] 22Result Comment: [11/26/2016] [facility] 23Result Comment: [11/26/2016] [facility] 24Result Comment: [11/26/2016] [facility] 25Result Comment: [11/26/2016] [facility] 26Result Comment: [11/26/2016] [facility] 27Result Comment: [11/26/2016] [facility] 28Result Comment: [11/26/2016] [facility] 29Result Comment: [11/26/2016] [facility] 30Result Comment: [11/26/2016] [facility] 31Result Comment: [11/26/2016] [facility] 32Result Comment: [11/26/2016] [facility] 33Result Comment: [11/26/2016] [facility] Medications Flovent HFA 110 mcg/inh inhalation aerosol 2 puffs, Inhalation, 2 times a day, use without spacer, swallowed (not inhaled) for treatment of eosinophilic esophagitis, # 12 Gm, 3 Refills, Maintenance, 03/08/20 13:51:00 EDT, Aerosol, [facility], 153, cm, 03/01/20 14:05:00 EDT, Hefloridalma... Start Date: 03/08/20 Status: Ordered furosemide 20 [...] recent to oldest [Reference Range]: 1 Height 153 cm (03/01/20 2:05 PM) Weight 60.1 kg (03/01/20 2:05 PM) Pulse Rate [55-90 bpm] 64 bpm (03/01/20 2:05 PM) Body Mass Index [18.5-24.99] 25.67 *H* (03/01/20 2:05 PM) Blood Pressure [90-138/55-84 mm Hg] 94/6 2mm Hg (03/01/20 2:05 PM) Respiratory Rate [16-30 br/min] 12 br/mi n *L* (03/01/20 2:05 PM) Temperature [96.8-100.4 DegF] 98.1 DegF (03/01/20 2:05 PM) Blood pressure sites Arm, right (03/01/20 2:05 PM) Temperature Route Oral (03/01/20 2:05 PM) Weight Obtained Via Standing scale (03/01/20 2:05 PM) Social History Social History Type Response Smoking Status Never smoker entered on: 10/24/17 Sex
--- OUTSIDE RECORDS SUMMARY | 2024-05-20 07:31 | XMS_ITS | Continuity of Care Document ---
Author Organization [facility] Ethan lt Address [address] [place] [address]- Care Team Providers Care Desizing Machine Operator Name Role Phone Karthik HENLEY, Isaiah Douglas Primary Care Physician Encounter [facility] Date(s): 04/03/21 - 05/03/21 [facility] Adult [address] [place] [address]- Allergies, Adverse Reactions, Alerts Substance Reaction Severity [...] Guardian Refuses 1Result Comment: [facility]-[id number] 2[facility] 3Result Comment: [11/26/2016] [facility] 4Result Comment: [11/26/2016] [facility] 5Result Comment: [11/26/2016] [facility] 6Result Comment: [11/26/2016] [facility] 7Result Comment: [11/26/2016] [facility] 8Result Comment: [11/26/2016] [facility] 9Result Comment: [11/26/2016] [facility] 10Result Comment: [11/26/2016] [facility] 11Result Comment: [11/26/2016] [facility] 12Result Comment: [11/26/2016] [facility] 13Result Comment: [11/26/2016] [facility] 14Result Comment: [11/26/2016] [facility] 15Result Comment: [11/26/2016] [facility] 16Result Comment: [11/26/2016] [facility] 17Result Comment: [11/26/2016] [facility] 18Result Comment: [11/26/2016] [facility] 19Result Comment: [11/26/2016] [facility] 20Result Comment: [11/26/2016] [facility] 21Result Comment: [11/26/2016] [facility] 22Result Comment: [11/26/2016] [facility] 23Result Comment: [11/26/2016] [facility] 24Result Comment: [11/26/2016] [facility] 25Result Comment: [11/26/2016] [facility] 26Result Comment: [11/26/2016] [facility] 27Result Comment: [11/26/2016] [facility] 28Result Comment: [11/26/2016] [facility] 29Result Comment: [11/26/2016] [facility] 30Result Comment: [11/26/2016] [facility] 31Result Comment: [11/26/2016] [facility] 32Result Comment: [11/26/2016] [facility] 33Result Comment: [11/26/2016] [facility] Medications levothyroxine 125 mcg (0.125 mg) [...]
--- OUTSIDE RECORDS SUMMARY | 2024-05-20 07:31 | XMS_ITS | Continuity of Care Document ---
Author Organization [facility] Address [address] [place] [address]- Care Team Providers Care Hand Or Machine Paster Name Role Phone Karthik HENLEY, Isaiah Douglas Primary Care Physician Encounter [facility] Date(s): 01/24/23 - 02/23/23 [facility] [address] [place] [address] Allergies, Adverse Reactions, Alerts Substance Reaction Severity Status codeine 1 Surgical adhesive ta pe itching Active Adhesive Bandage 2 Rash Active riTUXimab 3 Severe Active 1hives 2surgical tape allergy as per family 3developed anaphylaxis with throat closure sensation and facial swelling needed brief epinephrine drip Immunizations Given and Recorded Vaccine Date Status Refusal Reason tetanus-diphtheria toxoids (Td) 1 08/15/22 Given [id number] bivalent booster vax 07/05/22 Recorded influenza virus [...] Given Parent Or Guardian Refuses 1Result Comment: [id number] 2Result Comment: [facility] [place] 3Result Comment: [facility]-[id number] 4Location History: [facility] [place] 5Result Comment: [11/26/2016] [facility] 6Result Comment: [11/26/2016] [facility] 7Result Comment: [11/26/2016] [facility] 8Result Comment: [11/26/2016] [facility] 9Result Comment: [11/26/2016] [facility] 10Result Comment: [11/26/2016] [facility] 11Result Comment: [11/26/2016] [facility] 12Result Comment: [11/26/2016] [facility] 13Result Comment: [11/26/2016] [facility] 14Result Comment: [11/26/2016] [facility] 15Result Comment: [11/26/2016] [facility] 16Result Comment: [11/26/2016] [facility] 17Result Comment: [11/26/2016] [facility] 18Result Comment: [11/26/2016] [facility] 19Result Comment: [11/26/2016] [facility] 20Result Comment: [11/26/2016] [facility] 21Result Comment: [11/26/2016] [facility] 22Result Comment: [11/26/2016] [facility] 23Result Comment: [11/26/2016] [facility] 24Result Comment: [11/26/2016] [facility] 25Result Comment: [11/26/2016] [facility] 26Result Comment: [11/26/2016] [facility] 27Result Comment: [11/26/2016] [facility] 28Result Comment: [11/26/2016] [facility] 29Result Comment: [11/26/2016] [facility] 30Result Comment: [11/26/2016] [facility] 31Result Comment: [11/26/2016] [facility] 32Result Comment: [11/26/2016] [facility] 33Result Comment: [11/26/2016] [facility] 34Result Comment: [11/26/2016] [facility] 35Result Comment: [11/26/2016] [facility] Medications Budesonide 1 mg, 1mg/2ml, Refills [...] Team Personnel Name: Margaux Vivas RN Position: [facility] RN Member Role: Primary Care Nurse Name: Live Leyva MD Position: [facility] Physician -Physician Practices Member Role: Lifetime Consulting Physician Name: Jeanmarie Lopez MD Position: [facility] Renal MD Member Role: Lifetime Consulting Physician Address: Address: [address] [place] [address], [address] [facility] [place] [address]- Name: Lashonda Clifford Position: [facility] Outreach Member Role: Lifetime Consulting Physician Name: Isaiah Angeles MD Position: [facility] Physician - Primary Care Member Role: PCP Address: Address: [address] [place] [address]- Name: Annalise Lara RN Position: [facility] RN Member Role: Primary Care Nurse Name: Mark Wilkes MD Position: S Renal MD Member Role: Lifetime Consulting Physician Address: Address: [address] [place] [address] [facility] [address] Name: Bibiana Treviño RN Position: S RN Member Role: Primary Care Nurse Care Team Related Persons Name: MIRA MILLER Address: [place] [phone] Name: MIRA MILLER Address: [place] [phone] Name: MIRA MILLER Address: [place] [phone] Name: MIRA MILLER Address: [place] [phone] Name: MIRA MILLER Address: [place] [phone] Name: ANGELA MIRA Address: [place] [phone] Name: MIRA MILLER Address: [place] [phone] Name: PRATEEK MILLER Address: [address] [address] Name: ANGELA BELEN Address: [address] [address] Name: BELEN MILLER Address: [address] [address]
--- OUTSIDE RECORDS SUMMARY | 2024-05-20 07:32 | XMS_ITS | Continuity of Care Document ---
Author Organization [facility] Address [address] [place] [address]- Care Team Providers Care Instructor Business Education Name Role Phone Karthik HENLEY, Isaiah Douglas Primary Care Physician Encounter [facility] Date(s): 09/11/21 - 10/11/21 [facility] [address] [place] [address]- Allergies, Adverse Reactions, Alerts Substance Reaction Severity [...] Given Parent Or Guardian Refuses 1Result Comment: [facility]-[id number] 2Location History: [facility] [place] 3Result Comment: [11/26/2016] [facility] 4Result Comment: [11/26/2016] [facility] 5Result Comment: [11/26/2016] [facility] 6Result Comment: [11/26/2016] [facility] 7Result Comment: [11/26/2016] [facility] 8Result Comment: [11/26/2016] [facility] 9Result Comment: [11/26/2016] [facility] 10Result Comment: [11/26/2016] [facility] 11Result Comment: [11/26/2016] [facility] 12Result Comment: [11/26/2016] [facility] 13Result Comment: [11/26/2016] [facility] 14Result Comment: [11/26/2016] [facility] 15Result Comment: [11/26/2016] [facility] 16Result Comment: [11/26/2016] [facility] 17Result Comment: [11/26/2016] [facility] 18Result Comment: [11/26/2016] [facility] 19Result Comment: [11/26/2016] [facility] 20Result Comment: [11/26/2016] [facility] 21Result Comment: [11/26/2016] [facility] 22Result Comment: [11/26/2016] [facility] 23Result Comment: [11/26/2016] [facility] 24Result Comment: [11/26/2016] [facility] 25Result Comment: [11/26/2016] [facility] 26Result Comment: [11/26/2016] [facility] 27Result Comment: [11/26/2016] [facility] 28Result Comment: [11/26/2016] [facility] 29Result Comment: [11/26/2016] [facility] 30Result Comment: [11/26/2016] [facility] 31Result Comment: [11/26/2016] [facility] 32Result Comment: [11/26/2016] [facility] 33Result Comment: [11/26/2016] [facility] Medications lidocaine 4% topical film 1 [...]
--- OUTSIDE RECORDS SUMMARY | 2024-05-20 07:32 | XMS_ITS | Continuity of Care Document ---
Author Organization [facility] Ethan lt Address [address] [place] [address]- Care Team Providers Care Reverberatory Furnace Supervisor Name Role Phone Karthik HENLEY, Isaiah Douglas Primary Care Physician Encounter [facility] Date(s): 10/25/22 - 11/24/22 [facility] [address] [place] [address]- Allergies, Adverse Reactions, Alerts Substance Reaction Severity Status codeine 1 Surgical adhesive ta pe itching Active Adhesive Bandage 2 Rash Active riTUXimab 3 Severe Active 1hives 2surgical tape allergy as per family 3developed anaphylaxis with throat closure sensation and facial swelling needed brief epinephrine drip Immunizations Given and Recorded Vaccine Date Status Refusal Reason tetanus-diphtheria toxoids (Td) 1 08/15/22 Given [id number] bivalent booster vax 07/05/22 Recorded influenza virus [...] Given Parent Or Guardian Refuses 1Result Comment: [id number] 2Result Comment: [facility] [place] 3Result Comment: [id number] 4Location History: [facility] [place] 5Result Comment: [11/26/2016] [facility] 6Result Comment: [11/26/2016] [facility] 7Result Comment: [11/26/2016] [facility] 8Result Comment: [11/26/2016] [facility] 9Result Comment: [11/26/2016] [facility] 10Result Comment: [11/26/2016] [facility] 11Result Comment: [11/26/2016] [facility] 12Result Comment: [11/26/2016] [facility] 13Result Comment: [11/26/2016] [facility] 14Result Comment: [11/26/2016] [facility] 15Result Comment: [11/26/2016] [facility] 16Result Comment: [11/26/2016] [facility] 17Result Comment: [11/26/2016] [facility] 18Result Comment: [11/26/2016] [facility] 19Result Comment: [11/26/2016] [facility] 20Result Comment: [11/26/2016] [facility] 21Result Comment: [11/26/2016] [facility] 22Result Comment: [11/26/2016] [facility] 23Result Comment: [11/26/2016] [facility] 24Result Comment: [11/26/2016] [facility] 25Result Comment: [11/26/2016] [facility] 26Result Comment: [11/26/2016] [facility] 27Result Comment: [11/26/2016] [facility] 28Result Comment: [11/26/2016] [facility] 29Result Comment: [11/26/2016] [facility] 30Result Comment: [11/26/2016] [facility] 31Result Comment: [11/26/2016] [facility] 32Result Comment: [11/26/2016] [facility] 33Result Comment: [11/26/2016] [facility] 34Result Comment: [11/26/2016] [facility] 35Result Comment: [11/26/2016] [facility] Medications cholecalciferol 50 mcg (2000 intl [...] Team Personnel Name: Margaux Vivas RN Position: [facility] RN Member Role: Primary Care Nurse Name: Live Leyva MD Position: [facility] Physician -Physician Practices Member Role: Lifetime Consulting Physician Name: Jeanmarie Lopez MD Position: [facility] Renal MD Member Role: Lifetime Consulting Physician Address: Address: [address] [place] [address], [address] [facility] [place] [address]- [place] Name: Lashonda Clifford Position: [facility] Outreach Member Role: Lifetime Consulting Physician Name: Tiera Wadsworth RN Position: [facility] RN Member Role: Primary Care Nurse Name: Isaiah Angeles MD Position: [facility] Primary Care Physician Member Role: PCP Address: Address: [address] [place] [address]- [place] Name: Annalise Lara RN Position: [facility] RN Member Role: Primary Care Nurse Name: Mark Wilkes MD Position: [facility] Renal MD Member Role: Lifetime Consulting Physician Address: Address: [address] [facility] [place] [address]- [place] Name: Bibiana Treviño RN Position: [facility] RN Member Role: Primary Care Nurse Care Team Related Persons Name: MIRA MILLER Address: [address] [phone] Name: MIRA MILLER Address: [address] [phone] Name: MIRA MILLER Address: [address] [phone] Name: MIRA MILLER Address: [address] [phone] Name: MIRA MILLER Address: [address] [phone] Name: MIRA MILLER Address: [address] [phone] Name: MIRA MILLER Address: [address] [phone] Name: PRATEEK MILLER Address: [address] [address] Name: BELEN MILLER Address: [address] [address] Name: BELEN MILLER Address: [address] [address]
--- OUTSIDE RECORDS SUMMARY | 2024-05-20 07:32 | XMS_ITS | Continuity of Care Document ---
Author Organization [facility] Address [address] [place] [address]- Care Team Providers Care Razor Grinder Name Role Phone Karthik HENLEY, Isaiah Douglas Primary Care Physician Encounter [facility] Date(s): 10/17/22 - 11/16/22 [facility] [address] [place] [address] Allergies, Adverse Reactions, Alerts Substance Reaction Severity Status codeine 1 Surgical adhesive ta pe itching Active Adhesive Bandage 2 Rash Active riTUXimab 3 Severe Active 1hives 2surgical tape allergy as per family 3developed anaphylaxis with throat closure sensation and facial swelling needed brief epinephrine drip Immunizations Given and Recorded Vaccine Date Status Refusal Reason tetanus-diphtheria toxoids (Td) 1 08/15/22 Given [id number] bivalent booster vax 07/05/22 Recorded influenza virus [...] corded Haemophilus B-Hepatitis B Vaccine 29 06/16/97 Fraeed rded Haemophilus B-Hepatitis B Vaccine 30 [...] Given Parent Or Guardian Refuses 1Result Comment: [id number] 2Result Comment: [facility] [place] 3Result Comment: [facility]-[id number] 4Location History: [facility] [place] 5Result Comment: [11/26/2016] [facility] 6Result Comment: [11/26/2016] [facility] 7Result Comment: [11/26/2016] [facility] 8Result Comment: [11/26/2016] [facility] 9Result Comment: [11/26/2016] [facility] 10Result Comment: [11/26/2016] [facility] 11Result Comment: [11/26/2016] [facility] 12Result Comment: [11/26/2016] [facility] 13Result Comment: [11/26/2016] [facility] 14Result Comment: [11/26/2016] [facility] 15Result Comment: [11/26/2016] [facility] 16Result Comment: [11/26/2016] [facility] 17Result Comment: [11/26/2016] [facility] 18Result Comment: [11/26/2016] [facility] 19Result Comment: [11/26/2016] [facility] 20Result Comment: [11/26/2016] [facility] 21Result Comment: [11/26/2016] [facility] 22Result Comment: [11/26/2016] [facility] 23Result Comment: [11/26/2016] [facility] 24Result Comment: [11/26/2016] [facility] 25Result Comment: [11/26/2016] [facility] 26Result Comment: [11/26/2016] [facility] 27Result Comment: [11/26/2016] [facility] 28Result Comment: [11/26/2016] [facility] 29Result Comment: [11/26/2016] [facility] 30Result Comment: [11/26/2016] [facility] 31Result Comment: [11/26/2016] [facility] 32Result Comment: [11/26/2016] [facility] 33Result Comment: [11/26/2016] [facility] 34Result Comment: [11/26/2016] [facility] 35Result Comment: [11/26/2016] [facility] Medications cholecalciferol 50 mcg (2000 intl [...] Care Nurse Name: Live Leyva MD Position: [facility] Physician -Physician Practices Member Role: Lifetime Consulting Physician Name: Jeanmarie Lopez MD Position: [facility] Renal MD Member Role: Lifetime Consulting Physician Address: Address: [address] [place] [address], [address] [facility] [place] [address]- [place] Name: Lashonda Clifford Position: [facility] Outreach Member Role: Lifetime Consulting Physician Name: Tiera Wadsworth RN Position: [facility] RN Member Role: Primary Care Nurse Name: Isaiah Angeles MD Position: [facility] Primary Care Physician Member Role: PCP Address: Address: [address] [place] [address]- [place] Name: Annalise Lara RN Position: [facility] RN Member Role: Primary Care Nurse Name: Mark Wilkes MD Position: [facility] Renal MD Member Role: Lifetime Consulting Physician Address: Address: [address] [facility] [place] [address]- [place] Name: Bibiana Treviño RN Position: [facility] RN Member Role: Primary Care Nurse Care Team Related Persons Name: AKASHMACHELLE MIRA Address: [address] [phone] Name: MIRA MILLER Address: [address] [phone] Name: MIRA MILLER Address: [address] [id number] Name: MIRA MILLER Address: [address] [phone] Name: MIRA MILLER Address: [address] [phone] Name: MIRA MILLER Address: [address] [phone] Name: MIRA MILLER Address: [address] [phone] Name: PRATEEK MILLER Address: [address] [address] Name: BELEN MILLER Address: home [address] [place] [address] Name: BELEN MILLER Address: [address] [address]
--- OUTSIDE RECORDS SUMMARY | 2024-05-20 07:32 | XMS_ITS | Continuity of Care Document ---
Author Organization [facility] Address [address] [place] [address]- Care Team Providers Care Hogshead Stock Clerk Name Role Phone Karthik HENLEY, Isaiah Douglas Primary Care Physician [phone] Encounter [facility] Date(s): 03/21/21 - 04/20/21 [facility] Adult [address] [place] [address]- Allergies, Adverse Reactions, Alerts Substance Reaction Severity [...] Given Parent Or Guardian Refuses 1Result Comment: [facility]-[id number] 2Location History: [facility] [place] 3Result Comment: [11/26/2016] [facility] 4Result Comment: [11/26/2016] [facility] 5Result Comment: [11/26/2016] [facility] 6Result Comment: [11/26/2016] [facility] 7Result Comment: [11/26/2016] [facility] 8Result Comment: [11/26/2016] [facility] 9Result Comment: [11/26/2016] [facility] 10Result Comment: [11/26/2016] [facility] 11Result Comment: [11/26/2016] [facility] 12Result Comment: [11/26/2016] [facility] 13Result Comment: [11/26/2016] [facility] 14Result Comment: [11/26/2016] [facility] 15Result Comment: [11/26/2016] [facility] 16Result Comment: [11/26/2016] [facility] 17Result Comment: [11/26/2016] [facility] 18Result Comment: [11/26/2016] [facility] 19Result Comment: [11/26/2016] [facility] 20Result Comment: [11/26/2016] [facility] 21Result Comment: [11/26/2016] [facility] 22Result Comment: [11/26/2016] [facility] 23Result Comment: [11/26/2016] [facility] 24Result Comment: [11/26/2016] [facility] 25Result Comment: [11/26/2016] [facility] 26Result Comment: [11/26/2016] [facility] 27Result Comment: [11/26/2016] [facility] 28Result Comment: [11/26/2016] [facility] 29Result Comment: [11/26/2016] [facility] 30Result Comment: [11/26/2016] [facility] 31Result Comment: [11/26/2016] [facility] 32Result Comment: [11/26/2016] [facility] 33Result Comment: [11/26/2016] [facility] Medications levothyroxine 125 mcg (0.125 mg) [...]
--- OUTSIDE RECORDS SUMMARY | 2024-05-20 07:32 | XMS_ITS | Continuity of Care Document ---
Author Organization [facility] Address [address] [place] [address]- Care Team Providers Care Gelatin Dynamite Packing Operator Name Role Phone Karthik HENLEY, Isaiah Douglas Primary Care Physician [phone] [place] [facility] [place] Date(s): 08/13/23 - 09/12/23 [facility] [address] [place] [address] Allergies, Adverse Reactions, Alerts [...] corded tetanus-diphtheria toxoids (Td) 10 08/15/22 Given [id number] bivalent booster vax 07/05/22 Recorded SARS-CoV-2 (COVID-19) [...] Comment: [facility] [place] 2Result Comment: [facility]-[id number] 3Location History: [facility] [place] 4Result Comment: [11/26/2016] [facility] 5Result Comment: [11/26/2016] [facility] 6Result Comment: [11/26/2016] [facility] 7Result Comment: [11/26/2016] [facility] 8Result Comment: [11/26/2016] [facility] 9Result Comment: [11/26/2016] [facility] 10Result Comment: [id number] 11Result Comment: [11/26/2016] [facility] 12Result Comment: [11/26/2016] [facility] 13Result Comment: [11/26/2016] [facility] 14Result Comment: [11/26/2016] [facility] 15Result Comment: [11/26/2016] [facility] 16Result Comment: [11/26/2016] [facility] 17Result Comment: [11/26/2016] [facility] 18Result Comment: [11/26/2016] [facility] 19Result Comment: [11/26/2016] [facility] 20Result Comment: [11/26/2016] [facility] 21Result Comment: [11/26/2016] [facility] 22Result Comment: [11/26/2016] [facility] 23Result Comment: [11/26/2016] [facility] 24Result Comment: [11/26/2016] [facility] 25Result Comment: [11/26/2016] [facility] 26Result Comment: [11/26/2016] [facility] 27Result Comment: [11/26/2016] [facility] 28Result Comment: [11/26/2016] [facility] 29Result Comment: [11/26/2016] [facility] 30Result Comment: [11/26/2016] [facility] 31Result Comment: [11/26/2016] [facility] 32Result Comment: [11/26/2016] [facility] 33Result Comment: [11/26/2016] [facility] 34Result Comment: [11/26/2016] [facility] 35Result Comment: [11/26/2016] [facility] Medications [...] Team Personnel Name: Live Leyva MD Position: [facility] Physician -Physician Practices Member Role: Lifetime Consulting Physician Name: Jeanmarie Lopez MD Position: [facility] Renal MD Member Role: Lifetime Consulting Physician Address: Address: [address] [place] [address] [address] [place] [address]- Name: Lashonda Clifford Position: [facility] Outreach Member Role: Lifetime Consulting Physician Name: Tiera Wadsworth RN Position: [facility] RN Member Role: Primary Care Nurse Name: Isaiah Angeles MD Position: [facility] Physician - Primary Care Member Role: PCP Address: Address: [address] [place] [address]- [place] Name: Annalise Lara RN Position: S RN Member Role: Primary Care Nurse Name: Mark iWlkes MD Position: [facility] Renal MD Member Role: Lifetime Consulting Physician Address: Address: [address] [place] [address] [facility] [place] [address]- Name: Bibiana Treviño RN Position: [facility] RN Member Role: Primary Care Nurse Care Team Related Persons Name: MIRA MILLER Address: [place] Address: [address] [place] [address] Name: MIRA MILLER Address: [address] [place] [id number] Name: PRATEEK MILLER Address: [address] [place] [address] Name: BELEN MILLER Address: [address] [place] [address] Name: BELEN MILLER Address: [address] [place] [address]
--- OUTSIDE RECORDS SUMMARY | 2024-05-20 07:32 | XMS_ITS | Continuity of Care Document ---
Author Organization [facility] Address [address] [place] [address]- Care Team Providers Care Clay Dry Press Helper Name Role Phone Karthik HENLEY, Isaiah Douglas Primary Care Physician [phone] [place] [facility] [place] 12/30/23 - 01/29/24 [facility] [address] [place] [address]- Allergies, Adverse Reactions, Alerts Substance Reaction Severity [...] corded tetanus-diphtheria toxoids (Td) 10 08/15/22 Given [id number] bivalent booster vax 07/05/22 Recorded SARS-CoV-2 (COVID-19) [...] Comment: [facility] [place] 2Result Comment: [facility]-[id number] 3Location History: [facility] [place] 4Result Comment: [11/26/2016] [facility] 5Result Comment: [11/26/2016] [facility] 6Result Comment: [11/26/2016] [facility] 7Result Comment: [11/26/2016] [facility] 8Result Comment: [11/26/2016] [facility] 9Result Comment: [11/26/2016] [facility] 10Result Comment: [id number] 11Result Comment: [11/26/2016] [facility] 12Result Comment: [11/26/2016] [facility] 13Result Comment: [11/26/2016] [facility] 14Result Comment: [11/26/2016] [facility] 15Result Comment: [11/26/2016] [facility] 16Result Comment: [11/26/2016] [facility] 17Result Comment: [11/26/2016] [facility] 18Result Comment: [11/26/2016] [facility] 19Result Comment: [11/26/2016] [facility] 20Result Comment: [11/26/2016] [facility] 21Result Comment: [11/26/2016] [facility] 22Result Comment: [11/26/2016] [facility] 23Result Comment: [11/26/2016] [facility] 24Result Comment: [11/26/2016] [facility] 25Result Comment: [11/26/2016] [facility] 26Result Comment: [11/26/2016] [facility] 27Result Comment: [11/26/2016] [facility] 28Result Comment: [11/26/2016] [facility] 29Result Comment: [11/26/2016] [facility] 30Result Comment: [11/26/2016] [facility] 31Result Comment: [11/26/2016] [facility] 32Result Comment: [11/26/2016] [facility] 33Result Comment: [11/26/2016] [facility] 34Result Comment: [11/26/2016] [facility] 35Result Comment: [11/26/2016] [facility] [...] Team Personnel Name: Live Leyva MD Position: [facility] Physician -Physician Practices Member Role: Lifetime Consulting Physician Name: Jeanmarie Lopez MD Position: [facility] Renal MD Member Role: Lifetime Consulting Physician Address: Address: [address] [place] [address] [address] [place] [address]- Name: Lashonda Clifford Position: [facility] Outreach Member Role: Lifetime Consulting Physician Name: Tiera Wadsworth RN Position: [facility] RN Member Role: Primary Care Nurse Name: John Davila DO Position: [facility] Renal MD Member Role: Lifetime Consulting Physician Address: Address: [address] [facility] [place] [address]- [place] Name: Karthik HENLEY, Isaiah Douglas Position: [facility] Physician - Primary Care Member Role: PCP Address: Address: [address] [place] [address]- [place] Name: Annalise Lara RN Position: [facility] RN Member Role: Primary Care Nurse Name: Mark Wilkes MD Position: [facility] Renal MD Member Role: Lifetime Consulting Physician Address: Address: [address] [place] [address] [facility] [place] [address]- [place] Name: Bibiana Treviño RN Position: [facility] RN Member Role: Primary Care Nurse Care Team Related Persons Name: MIRA MILLER Address: [place] Address: home [address] [place] [address] [place] Name: MIRA MILLER Address: [address] [place] [phone] Name: PRATEEK MILLER Address: [address] [place] [address] Name: BELEN MILLER Address: [address] [place] [address] Name: BELEN MILLER Address: [address] [place] [address]
--- OUTSIDE RECORDS SUMMARY | 2024-05-20 07:32 | XMS_ITS | Continuity of Care Document ---
Author Organization [facility] Ethan lt Address [address] [place] [address]- Care Team Providers Care Caramel Maker Name Role Phone Karthik HENLEY, Isaiah Douglas Primary Care Physician [place] [facility] [place](s): 04/24/22 - 05/01/22 [facility] Adult [address] [place] [address]- Attending Physician: Not on Staff, Attending MD Allergies, Adverse Reactions, Alerts Substance Reaction [...] Given Parent Or Guardian Refuses 1Result Comment: [facility]-[id number] 2Location History: [facility] [place] 3Result Comment: [11/26/2016] [facility] 4Result Comment: [11/26/2016] [facility] 5Result Comment: [11/26/2016] [facility] 6Result Comment: [11/26/2016] [facility] 7Result Comment: [11/26/2016] [facility] 8Result Comment: [11/26/2016] [facility] 9Result Comment: [11/26/2016] [facility] 10Result Comment: [11/26/2016] [facility] 11Result Comment: [11/26/2016] [facility] 12Result Comment: [11/26/2016] [facility] 13Result Comment: [11/26/2016] [facility] 14Result Comment: [11/26/2016] [facility] 15Result Comment: [11/26/2016] [facility] 16Result Comment: [11/26/2016] [facility] 17Result Comment: [11/26/2016] [facility] 18Result Comment: [11/26/2016] [facility] 19Result Comment: [11/26/2016] [facility] 20Result Comment: [11/26/2016] [facility] 21Result Comment: [11/26/2016] [facility] 22Result Comment: [11/26/2016] [facility] 23Result Comment: [11/26/2016] [facility] 24Result Comment: [11/26/2016] [facility] 25Result Comment: [11/26/2016] [facility] 26Result Comment: [11/26/2016] [facility] 27Result Comment: [11/26/2016] [facility] 28Result Comment: [11/26/2016] [facility] 29Result Comment: [11/26/2016] [facility] 30Result Comment: [11/26/2016] [facility] 31Result Comment: [11/26/2016] [facility] 32Result Comment: [11/26/2016] [facility] 33Result Comment: [11/26/2016] [facility] Medications Flovent 110 mcg Inhaler HFA [...] Care Team Personnel Name: Karthik HENLEY, Isaiah Douglas Address: [address] [place] [address] Adult [place], [place] [address]
--- OUTSIDE RECORDS SUMMARY | 2024-05-20 07:32 | XMS_ITS | Continuity of Care Document ---
Author Organization [facility] Ethan lt Address [address] [place] [address]- Care Team Providers Care Heavy Equipment Plumbing Supervisor Name Role Phone Karthik HENLEY, Isaiah Douglas Primary Care Physician Encounter [facility] [place] Date(s): 06/28/21 - 07/28/21 [facility] Adult [address] [place] [address]- Allergies, Adverse Reactions, Alerts Substance Reaction Severity [...] Parent Or Guardian Refuses 1Result Comment: [facility]-[id number] 2Location History: [facility] [place] 3Result Comment: [11/26/2016] [facility] 4Result Comment: [11/26/2016] [facility] 5Result Comment: [11/26/2016] [facility] 6Result Comment: [11/26/2016] [facility] 7Result Comment: [11/26/2016] [facility] 8Result Comment: [11/26/2016] [facility] 9Result Comment: [11/26/2016] [facility] 10Result Comment: [11/26/2016] [facility] 11Result Comment: [11/26/2016] [facility] 12Result Comment: [11/26/2016] [facility] 13Result Comment: [11/26/2016] [facility] 14Result Comment: [11/26/2016] [facility] 15Result Comment: [11/26/2016] [facility] 16Result Comment: [11/26/2016] [facility] 17Result Comment: [11/26/2016] [facility] 18Result Comment: [11/26/2016] [facility] 19Result Comment: [11/26/2016] [facility] 20Result Comment: [11/26/2016] [facility] 21Result Comment: [11/26/2016] [facility] 22Result Comment: [11/26/2016] [facility] 23Result Comment: [11/26/2016] [facility] 24Result Comment: [11/26/2016] [facility] 25Result Comment: [11/26/2016] [facility] 26Result Comment: [11/26/2016] [facility] 27Result Comment: [11/26/2016] [facility] 28Result Comment: [11/26/2016] [facility] 29Result Comment: [11/26/2016] [facility] 30Result Comment: [11/26/2016] [facility] 31Result Comment: [11/26/2016] [facility] 32Result Comment: [11/26/2016] [facility] 33Result Comment: [11/26/2016] [facility] Medications lidocaine 4% topical film 1 [...]
--- OUTSIDE RECORDS SUMMARY | 2024-05-20 07:32 | XMS_ITS | Continuity of Care Document ---
Author Organization [facility] Address [address] [place] [address]- Care Team Providers Care Internal Controls Analyst Name Role Phone Karthik HENLEY, Isaiah Douglas Primary Care Physician [place] [facility] [place]12[place]23 - 08/11/23 [facility] [address] [place] [address]- Allergies, Adverse Reactions, Alerts Substance Reaction Severity [...] corded tetanus-diphtheria toxoids (Td) 10 08/15/22 Given [id number] bivalent booster vax 07/05/22 Recorded SARS-CoV-2 (COVID-19) [...] Comment: [facility] [place] 2Result Comment: [facility]-[id number] 3Location History: [facility] [place] 4Result Comment: [11/26/2016] [facility] 5Result Comment: [11/26/2016] [facility] 6Result Comment: [11/26/2016] [facility] 7Result Comment: [11/26/2016] [facility] 8Result Comment: [11/26/2016] [facility] 9Result Comment: [11/26/2016] [facility] 10Result Comment: [id number] 11Result Comment: [11/26/2016] [facility] 12Result Comment: [11/26/2016] [facility] 13Result Comment: [11/26/2016] [facility] 14Result Comment: [11/26/2016] [facility] 15Result Comment: [11/26/2016] [facility] 16Result Comment: [11/26/2016] [facility] 17Result Comment: [11/26/2016] [facility] 18Result Comment: [11/26/2016] [facility] 19Result Comment: [11/26/2016] [facility] 20Result Comment: [11/26/2016] [facility] 21Result Comment: [11/26/2016] [facility] 22Result Comment: [11/26/2016] [facility] 23Result Comment: [11/26/2016] [facility] 24Result Comment: [11/26/2016] [facility] 25Result Comment: [11/26/2016] [facility] 26Result Comment: [11/26/2016] [facility] 27Result Comment: [11/26/2016] [facility] 28Result Comment: [11/26/2016] [facility] 29Result Comment: [11/26/2016] [facility] 30Result Comment: [11/26/2016] [facility] 31Result Comment: [11/26/2016] [facility] 32Result Comment: [11/26/2016] [facility] 33Result Comment: [11/26/2016] [facility] 34Result Comment: [11/26/2016] [facility] 35Result Comment: [11/26/2016] [facility] Medications Flovent 110 mcg Inhaler HFA [...] Team Personnel Name: Margaux Vivas RN Position: [facility] RN Member Role: Primary Care Nurse Name: Live Leyva MD Position: [facility] Physician -Physician Practices Member Role: Lifetime Consulting Physician Name: Jeanmarie Lopez MD Position: [facility] Renal MD Member Role: Lifetime Consulting Physician Address: Address: [address] [place] [address] [address] [place] [address]- Name: Lashonda Clifford Position: [facility] Outreach Member Role: Lifetime Consulting Physician Name: Tiera Wadsworth RN Position: [facility] RN Member Role: Primary Care Nurse Name: Isaiah Angeles MD Position: [facility] Physician - Primary Care Member Role: PCP Address: Address: [address] [place] [address]- [place] Name: Annalise Lara RN Position: S RN Member Role: Primary Care Nurse Name: Mark Wilkes MD Position: [facility] Renal MD Member Role: Lifetime Consulting Physician Address: Address: [address] [place] [address] [facility] [place] [address]- Name: Bibiana Treviño RN Position: S RN Member Role: Primary Care Nurse Care Team Related Persons Name: MIRA MILLER Address: home [address] [place] [id number] Name: MIRA MILLER Address: [place] Address: [address] [place] [address] [place] Name: PRATEEK MILLER Address: [address] [place] [address] Name: BELEN MILLER Address: [address] [place] [address] Name: BELEN MILLER Address: [address] [place] [address]
--- OUTSIDE RECORDS SUMMARY | 2024-05-20 07:32 | XMS_ITS | Continuity of Care Document ---
Author Organization [facility] Ethan lt Address [address] [place] [address]- Care Team Providers Care Bulldozer Press Operator Name Role Phone Karthik HENLEY, Isaiah Douglas Primary Care Physician Encounter [facility] Date(s): 03/07/21 - 04/06/21 [facility] Adult [address] [place] [address]- Allergies, Adverse Reactions, Alerts Substance Reaction Severity [...] Given Parent Or Guardian Refuses 1Result Comment: [facility]-[id number] 2Location History: [facility] 3Result Comment: [11/26/2016] [facility] 4Result Comment: [11/26/2016] [facility] 5Result Comment: [11/26/2016] [facility] 6Result Comment: [11/26/2016] [facility] 7Result Comment: [11/26/2016] [facility] 8Result Comment: [11/26/2016] [facility] 9Result Comment: [11/26/2016] [facility] 10Result Comment: [11/26/2016] [facility] 11Result Comment: [11/26/2016] [facility] 12Result Comment: [11/26/2016] [facility] 13Result Comment: [11/26/2016] [facility] 14Result Comment: [11/26/2016] [facility] 15Result Comment: [11/26/2016] [facility] 16Result Comment: [11/26/2016] [facility] 17Result Comment: [11/26/2016] [facility] 18Result Comment: [11/26/2016] [facility] 19Result Comment: [11/26/2016] [facility] 20Result Comment: [11/26/2016] [facility] 21Result Comment: [11/26/2016] [facility] 22Result Comment: [11/26/2016] [facility] 23Result Comment: [11/26/2016] [facility] 24Result Comment: [11/26/2016] [facility] 25Result Comment: [11/26/2016] [facility] 26Result Comment: [11/26/2016] [facility] 27Result Comment: [11/26/2016] [facility] 28Result Comment: [11/26/2016] [facility] 29Result Comment: [11/26/2016] [facility] 30Result Comment: [11/26/2016] [facility] 31Result Comment: [11/26/2016] [facility] 32Result Comment: [11/26/2016] [facility] 33Result Comment: [11/26/2016] [facility] Medications levothyroxine 125 mcg (0.125 mg) [...]
--- OUTSIDE RECORDS SUMMARY | 2024-05-20 07:32 | XMS_ITS | Continuity of Care Document ---
Author Organization [facility] Primary [facility] Address [address] [place] [address]- Care Team Providers Care Clin Application Specialist Name Role Phone Karthik HENLEY, Isaiah Douglas Primary Care Physician [phone] Encounter [facility] Date(s): 07/06/21 - 08/05/21 [facility] [place] [address] [place] [address]- Allergies, Adverse Reactions, Alerts Substance Reaction Severity [...] Parent Or Guardian Refuses 1Result Comment: [facility]-[id number] 2Location History: [facility] 3Result Comment: [11/26/2016] [facility] 4Result Comment: [11/26/2016] [facility] 5Result Comment: [11/26/2016] [facility] 6Result Comment: [11/26/2016] [facility] 7Result Comment: [11/26/2016] [facility] 8Result Comment: [11/26/2016] [facility] 9Result Comment: [11/26/2016] [facility] 10Result Comment: [11/26/2016] [facility] 11Result Comment: [11/26/2016] [facility] 12Result Comment: [11/26/2016] [facility] 13Result Comment: [11/26/2016] [facility] 14Result Comment: [11/26/2016] [facility] 15Result Comment: [11/26/2016] [facility] 16Result Comment: [11/26/2016] [facility] 17Result Comment: [11/26/2016] [facility] 18Result Comment: [11/26/2016] [facility] 19Result Comment: [11/26/2016] [facility] 20Result Comment: [11/26/2016] [facility] 21Result Comment: [11/26/2016] [facility] 22Result Comment: [11/26/2016] [facility] 23Result Comment: [11/26/2016] [facility] 24Result Comment: [11/26/2016] [facility] 25Result Comment: [11/26/2016] [facility] 26Result Comment: [11/26/2016] [facility] 27Result Comment: [11/26/2016] [facility] 28Result Comment: [11/26/2016] [facility] 29Result Comment: [11/26/2016] [facility] 30Result Comment: [11/26/2016] [facility] 31Result Comment: [11/26/2016] [facility] 32Result Comment: [11/26/2016] [facility] 33Result Comment: [11/26/2016] [facility] Medications lidocaine 4% topical film 1 [...]
--- OUTSIDE RECORDS SUMMARY | 2024-05-20 07:32 | XMS_ITS | Continuity of Care Document ---
Author Organization [facility] Address [address] [place] [address]- Care Team Providers Care Circular Shear Operator Name Role Phone Karthik HENLEY, Isaiah Douglas Primary Care Physician [phone] En[place] [facility] Date(s): 08/08/23 - 09/07/23 [facility] [address] [place] [address] Allergies, Adverse Reactions, Alerts Substance [...] corded tetanus-diphtheria toxoids (Td) 10 08/15/22 Given [id number] bivalent booster vax 07/05/22 Recorded SARS-CoV-2 (COVID-19) [...] Comment: [facility] [place] 2Result Comment: [facility]-[id number] 3Location History: [facility] [place] 4Result Comment: [11/26/2016] [facility] 5Result Comment: [11/26/2016] [facility] 6Result Comment: [11/26/2016] [facility] 7Result Comment: [11/26/2016] [facility] 8Result Comment: [11/26/2016] [facility] 9Result Comment: [11/26/2016] [facility] 10Result Comment: [id number] 11Result Comment: [11/26/2016] [facility] 12Result Comment: [11/26/2016] [facility] 13Result Comment: [11/26/2016] [facility] 14Result Comment: [11/26/2016] [facility] 15Result Comment: [11/26/2016] [facility] 16Result Comment: [11/26/2016] [facility] 17Result Comment: [11/26/2016] [facility] 18Result Comment: [11/26/2016] [facility] 19Result Comment: [11/26/2016] [facility] 20Result Comment: [11/26/2016] [facility] 21Result Comment: [11/26/2016] [facility] 22Result Comment: [11/26/2016] [facility] 23Result Comment: [11/26/2016] [facility] 24Result Comment: [11/26/2016] [facility] 25Result Comment: [11/26/2016] [facility] 26Result Comment: [11/26/2016] [facility] 27Result Comment: [11/26/2016] [facility] 28Result Comment: [11/26/2016] [facility] 29Result Comment: [11/26/2016] [facility] 30Result Comment: [11/26/2016] [facility] 31Result Comment: [11/26/2016] [facility] 32Result Comment: [11/26/2016] [facility] 33Result Comment: [11/26/2016] [facility] 34Result Comment: [11/26/2016] [facility] 35Result Comment: [11/26/2016] [facility] Medications Flovent 110 mcg Inhaler HFA [...] Member Role: Lifetime Consulting Physician Address: Address: [address] [place] [address] [address] [place] [address]- Name: Lashonda Clifford Position: [facility] Outreach Member Role: Lifetime Consulting Physician Name: Tiera Wadsworth RN Position: [facility] RN Member Role: Primary Care Nurse Name: Isaiah Angeles MD Position: [facility] Physician - Primary Care Member Role: PCP Address: Address: [address] [place] [address]- [place] Name: Annalise Lara RN Position: S RN Member Role: Primary Care Nurse Name: Mark Wilkes MD Position: [facility] Renal MD Member Role: Lifetime Consulting Physician Address: Address: [address] [place] [address] [facility] [place] [address]- Name: Bibiana Trveiño RN Position: S RN Member Role: Primary Care Nurse Care Team Related Persons Name: MIRA MILLER Address: [place] Address: home [address] [place] [address] Name: MIRA MILLER Address: home [address] [place] [phone] Name: PRATEEK MILLER Address: home [address] [place] [address] Name: BELEN MILLER Address: home [address] [place] [address] Name: BELEN MILLER Address: home [address] [place] [address]
--- OUTSIDE RECORDS SUMMARY | 2024-05-20 07:32 | XMS_ITS | Continuity of Care Document ---
Author Organization [facility] Ethan lt Address [address] [place] [address]- Care Team Providers Care Senior Power Plant Operator Name Role Phone Karthik HENLEY, Isaiah Douglas Primary Care Physician Encounter [facility] Date(s): 10/08/23 - 11/07/23 [facility] Adult [address] [place] [address]- Allergies, Adverse Reactions, Alerts Substance Reaction Severity [...] corded tetanus-diphtheria toxoids (Td) 10 08/15/22 Given [id number] bivalent booster vax 07/05/22 Recorded SARS-CoV-2 (COVID-19) [...] Comment: [facility] [place] 2Result Comment: [facility]-[id number] 3Location History: [facility] [place] 4Result Comment: [11/26/2016] [facility] 5Result Comment: [11/26/2016] [facility] 6Result Comment: [11/26/2016] [facility] 7Result Comment: [11/26/2016] [facility] 8Result Comment: [11/26/2016] [facility] 9Result Comment: [11/26/2016] [facility] 10Result Comment: [id number] 11Result Comment: [11/26/2016] [facility] 12Result Comment: [11/26/2016] [facility] 13Result Comment: [11/26/2016] [facility] 14Result Comment: [11/26/2016] [facility] 15Result Comment: [11/26/2016] [facility] 16Result Comment: [11/26/2016] [facility] 17Result Comment: [11/26/2016] [facility] 18Result Comment: [11/26/2016] [facility] 19Result Comment: [11/26/2016] [facility] 20Result Comment: [11/26/2016] [facility] 21Result Comment: [11/26/2016] [facility] 22Result Comment: [11/26/2016] [facility] 23Result Comment: [11/26/2016] [facility] 24Result Comment: [11/26/2016] [facility] 25Result Comment: [11/26/2016] [facility] 26Result Comment: [11/26/2016] [facility] 27Result Comment: [11/26/2016] [facility] 28Result Comment: [11/26/2016] [facility] 29Result Comment: [11/26/2016] [facility] 30Result Comment: [11/26/2016] [facility] 31Result Comment: [11/26/2016] [facility] 32Result Comment: [11/26/2016] [facility] 33Result Comment: [11/26/2016] [facility] 34Result Comment: [11/26/2016] [facility] 35Result Comment: [11/26/2016] [facility] Medications [...] Team Personnel Name: Live Leyva MD Position: [facility] Physician -Physician Practices Member Role: Lifetime Consulting Physician Name: Jeanmarie Lopez MD Position: [facility] Renal MD Member Role: Lifetime Consulting Physician Address: Address: [address] [place] [address] [address] [place] [address]- Name: Lashonda Clifford Position: [facility] Outreach Member Role: Lifetime Consulting Physician Name: Tiera Wadsworth RN Position: [facility] RN Member Role: Primary Care Nurse Name: Isaiah Angeles MD Position: [facility] Physician - Primary Care Member Role: PCP Address: Address: [address] [place] [address]- [place] Name: Annalise Lara RN Position: S RN Member Role: Primary Care Nurse Name: Mark Wilkes MD Position: [facility] Renal MD Member Role: Lifetime Consulting Physician Address: Address: [address] [place] [address] [facility] [place] [address]- Name: Bibiana Treviño RN Position: S RN Member Role: Primary Care Nurse Care Team Related Persons Name: MIRA MILLER Address: [place] Address: home [address] [place] [address] [place] Name: MIRA MILLER Address: home [address] [place] [id number] Name: PRATEEK MILLER Address: home [address] [place] [address] Name: BELEN MILLER Address: home [address] [place] [address] Name: BELEN MILLER Address: home [address] [place] [address]
--- OUTSIDE RECORDS SUMMARY | 2024-05-20 07:32 | XMS_ITS | Continuity of Care Document ---
Author Organization [facility] Ethan lt Address [address] [place] [address]- Care Team Providers Care Pool Finisher Name Role Phone Karthik HENLEY, Isaiah Douglas Primary Care Physician [phone] [place] [facility] Date(s): 08/01/22 - 08/31/22 [facility] Adult [address] [place] [address]- Allergies, Adverse Reactions, Alerts Substance Reaction Severity Status codeine 1 Surgical adhesive ta pe itching Active Adhesive Bandage 2 Rash Active riTUXimab 3 Severe Active 1hives 2surgical tape allergy as per family 3developed anaphylaxis with throat closure sensation and facial swelling needed brief epinephrine drip Immunizations Given and Recorded Vaccine Date Status Refusal Reason tetanus-diphtheria toxoids (Td) 1 08/15/22 Given [id number] bivalent booster vax 07/05/22 Recorded influenza virus [...] Given Parent Or Guardian Refuses 1Result Comment: [id number] 2Result Comment: [facility] [place] 3Result Comment: [facility]-[id number] 4Location History: [facility] [place] 5Result Comment: [11/26/2016] [facility] 6Result Comment: [11/26/2016] [facility] 7Result Comment: [11/26/2016] [facility] 8Result Comment: [11/26/2016] [facility] 9Result Comment: [11/26/2016] [facility] 10Result Comment: [11/26/2016] [facility] 11Result Comment: [11/26/2016] [facility] 12Result Comment: [11/26/2016] [facility] 13Result Comment: [11/26/2016] [facility] 14Result Comment: [11/26/2016] [facility] 15Result Comment: [11/26/2016] [facility] 16Result Comment: [11/26/2016] [facility] 17Result Comment: [11/26/2016] [facility] 18Result Comment: [11/26/2016] [facility] 19Result Comment: [11/26/2016] [facility] 20Result Comment: [11/26/2016] [facility] 21Result Comment: [11/26/2016] [facility] 22Result Comment: [11/26/2016] [facility] 23Result Comment: [11/26/2016] [facility] 24Result Comment: [11/26/2016] [facility] 25Result Comment: [11/26/2016] [facility] 26Result Comment: [11/26/2016] [facility] 27Result Comment: [11/26/2016] [facility] 28Result Comment: [11/26/2016] [facility] 29Result Comment: [11/26/2016] [facility] 30Result Comment: [11/26/2016] [facility] 31Result Comment: [11/26/2016] [facility] 32Result Comment: [11/26/2016] [facility] 33Result Comment: [11/26/2016] [facility] 34Result Comment: [11/26/2016] [facility] 35Result Comment: [11/26/2016] [facility] Medications dextromethorphan-guaifenesin 10 mg-100 mg/5 mL oral liquid [...] Team Personnel Name: Margaux Vivas RN Position: [facility] RN Member Role: Primary Care Nurse Name: Live Leyva MD Position: [facility] Physician -Physician Practices Member Role: Lifetime Consulting Physician Name: Jeanmarie Lopez MD Position: [facility] Renal MD Member Role: Lifetime Consulting Physician Address: Address: [address] [place] [address], [address] [facility] [address] Name: Lashonda Clifford Position: [facility] Outreach Member Role: Lifetime Consulting Physician Name: Tiera Wadsworth RN Position: [facility] RN Member Role: Primary Care Nurse Name: Isaiah Angeles MD Position: [facility] Primary Care Physician Member Role: PCP Address: Address: [address] [place] [address]- [place] Name: Annalise Lara RN Position: [facility] RN Member Role: Primary Care Nurse Name: Mark Wilkes MD Position: [facility] Renal MD Member Role: Lifetime Consulting Physician Address: Address: [address] [place] [address] [facility] [place], [place] [address] Name: Bibiana Treviño RN Position: [facility] RN Member Role: Primary Care Nurse Care Team Related Persons Name: MIRA MILLER Address: [place] [id number] Name: MIRA MILLER Address: [place] [id number] Name: MIRA MILLER Address: [place] [id number] Name: ANGELA MIRA Address: [address] [phone] Name: ANGELA MIRA Address: [place] [id number] Name: ANGELA MIRA Address: [address] [id number] Name: ANGELACLAUDETTEE Address: [place] [id number] Name: PRATEEK MILLER Address: [address] [address] Name: BELEN MILLER Address: [address] [address] Name: BELEN MILLER Address: [address] [address]
--- OUTSIDE RECORDS SUMMARY | 2024-05-20 07:32 | XMS_ITS | Continuity of Care Document ---
Author Organization [facility] Address [address] [place] [address]- Care Team Providers Care Django Developer Name Role Phone Karthik HENLEY, Isaiah Douglas Primary Care Physician En[place] [facility] Date(s): 11/21/22 - 12/21/22 [facility] [address] [place] [id number] Allergies, Adverse Reactions, Alerts Substance Reaction Severity Status codeine 1 Surgical adhesive ta pe itching Active Adhesive Bandage 2 Rash Active riTUXimab 3 Severe Active 1hives 2surgical tape allergy as per family 3developed anaphylaxis with throat closure sensation and facial swelling needed brief epinephrine drip Immunizations Given and Recorded Vaccine Date Status Refusal Reason tetanus-diphtheria toxoids (Td) 1 08/15/22 Given [id number] bivalent booster vax 07/05/22 Recorded influenza virus [...] Given Parent Or Guardian Refuses 1Result Comment: [id number] 2Result Comment: [facility] [place] 3Result Comment: [facility]-[id number] 4Location History: [facility] [place] 5Result Comment: [11/26/2016] [facility] 6Result Comment: [11/26/2016] [facility] 7Result Comment: [11/26/2016] [facility] 8Result Comment: [11/26/2016] [facility] 9Result Comment: [11/26/2016] [facility] 10Result Comment: [11/26/2016] [facility] 11Result Comment: [11/26/2016] [facility] 12Result Comment: [11/26/2016] [facility] 13Result Comment: [11/26/2016] [facility] 14Result Comment: [11/26/2016] [facility] 15Result Comment: [11/26/2016] [facility] 16Result Comment: [11/26/2016] [facility] 17Result Comment: [11/26/2016] [facility] 18Result Comment: [11/26/2016] [facility] 19Result Comment: [11/26/2016] [facility] 20Result Comment: [11/26/2016] [facility] 21Result Comment: [11/26/2016] [facility] 22Result Comment: [11/26/2016] [facility] 23Result Comment: [11/26/2016] [facility] 24Result Comment: [11/26/2016] [facility] 25Result Comment: [11/26/2016] [facility] 26Result Comment: [11/26/2016] [facility] 27Result Comment: [11/26/2016] [facility] 28Result Comment: [11/26/2016] [facility] 29Result Comment: [11/26/2016] [facility] 30Result Comment: [11/26/2016] [facility] 31Result Comment: [11/26/2016] [facility] 32Result Comment: [11/26/2016] [facility] 33Result Comment: [11/26/2016] [facility] 34Result Comment: [11/26/2016] [facility] 35Result Comment: [11/26/2016] [facility] Medications cholecalciferol 50 mcg (2000 intl [...] Role: Lifetime Consulting Physician Address: Address: [address] [place] [address], [address] [facility] [address] Name: Lashonda Clifford Position: [facility] Outreach Member Role: Lifetime Consulting Physician Name: Tiera Wadsworth RN Position: [facility] RN Member Role: Primary Care Nurse Name: Isaiah Angeles MD Position: [facility] Primary Care Physician Member Role: PCP Address: Address: [address] [place] [address]- Name: Annalise Lara RN Position: [facility] RN Member Role: Primary Care Nurse Name: Mark Wilkes MD Position: [facility] Renal MD Member Role: Lifetime Consulting Physician Address: Address: [address] [place] [address] [facility] [place], [place] [address] Name: Bibiana Treviño RN Position: [facility] RN Member Role: Primary Care Nurse Care Team Related Persons Name: CLAUDETTE MILLERE Address: [address] [phone] Name: AKASHMIRA CARTY Address: [place] [phone] Name: ANGELAMIRA Address: [address] [phone] Name: AKASHMIRA CARTY Address: [address] [phone] Name: AKASHMIRA CARTY Address: [address] [id number] Name: ANGELAMIRA Address: [address] [phone] Name: AKASHMIRA CARTY Address: [address] [phone] Name: PRATEEK MILLER Address: [address] [address] Name: BELEN MILLER Address: home [address] [place] [address] Name: BELEN MILLER Address: [address] [address]
--- OUTSIDE RECORDS SUMMARY | 2024-05-20 07:32 | XMS_ITS | Continuity of Care Document ---
Author Organization [facility] Ethan lt Address [address] [place] [address]- Care Team Providers Care Art Department Head Name Role Phone Karthik HENLEY, Isaiah Douglas Primary Care Physician [phone] Encounter [facility] Date(s): 12/22/20 - 01/21/21 [facility] Adult [address] [place] [address]- Allergies, Adverse Reactions, Alerts Substance Reaction Severity [...] Given Parent Or Guardian Refuses 1Result Comment: [facility]-[id number] 2Location History: [facility] [place] 3Result Comment: [11/26/2016] [facility] 4Result Comment: [11/26/2016] [facility] 5Result Comment: [11/26/2016] [facility] 6Result Comment: [11/26/2016] [facility] 7Result Comment: [11/26/2016] [facility] 8Result Comment: [11/26/2016] [facility] 9Result Comment: [11/26/2016] [facility] 10Result Comment: [11/26/2016] [facility] 11Result Comment: [11/26/2016] [facility] 12Result Comment: [11/26/2016] [facility] 13Result Comment: [11/26/2016] [facility] 14Result Comment: [11/26/2016] [facility] 15Result Comment: [11/26/2016] [facility] 16Result Comment: [11/26/2016] [facility] 17Result Comment: [11/26/2016] [facility] 18Result Comment: [11/26/2016] [facility] 19Result Comment: [11/26/2016] [facility] 20Result Comment: [11/26/2016] [facility] 21Result Comment: [11/26/2016] [facility] 22Result Comment: [11/26/2016] [facility] 23Result Comment: [11/26/2016] [facility] 24Result Comment: [11/26/2016] [facility] 25Result Comment: [11/26/2016] [facility] 26Result Comment: [11/26/2016] [facility] 27Result Comment: [11/26/2016] [facility] 28Result Comment: [11/26/2016] [facility] 29Result Comment: [11/26/2016] [facility] 30Result Comment: [11/26/2016] [facility] 31Result Comment: [11/26/2016] [facility] 32Result Comment: [11/26/2016] [facility] 33Result Comment: [11/26/2016] [facility]ations lidocaine 4% topical film 1 [...]
--- OUTSIDE RECORDS SUMMARY | 2024-05-20 07:32 | XMS_ITS | Continuity of Care Document ---
Author Organization [facility] Iain Ethan lt Address [address] [place] [address]- Care Team Providers Care Admitting Counselor Name Role Phone Karthik HENLEY, Isaiah Douglas Primary Care Physician [phone] Encounter [facility] Date(s): 02/29/20 - 03/30/20 [facility] [place] Adult [address] [place] [address]- [facility] Allergies, Adverse Reactions, Alerts Substance Reaction [...] Given Parent Or Guardian Refuses 1Result Comment: [facility]-[id number] 2Location History: [facility] [place] 3Result Comment: [11/26/2016] [facility] 4Result Comment: [11/26/2016] [facility] 5Result Comment: [11/26/2016] [facility] 6Result Comment: [11/26/2016] [facility] 7Result Comment: [11/26/2016] [facility] 8Result Comment: [11/26/2016] [facility] 9Result Comment: [11/26/2016] [facility] 10Result Comment: [11/26/2016] [facility] 11Result Comment: [11/26/2016] [facility] 12Result Comment: [11/26/2016] [facility] 13Result Comment: [11/26/2016] [facility] 14Result Comment: [11/26/2016] [facility] 15Result Comment: [11/26/2016] [facility] 16Result Comment: [11/26/2016] [facility] 17Result Comment: [11/26/2016] [facility] 18Result Comment: [11/26/2016] [facility] 19Result Comment: [11/26/2016] [facility] 20Result Comment: [11/26/2016] [facility] 21Result Comment: [11/26/2016] [facility] 22Result Comment: [11/26/2016] [facility] 23Result Comment: [11/26/2016] [facility] 24Result Comment: [11/26/2016] [facility] 25Result Comment: [11/26/2016] [facility] 26Result Comment: [11/26/2016] [facility] 27Result Comment: [11/26/2016] [facility] 28Result Comment: [11/26/2016] [facility] 29Result Comment: [11/26/2016] [facility] 30Result Comment: [11/26/2016] [facility] 31Result Comment: [11/26/2016] [facility] 32Result Comment: [11/26/2016] [facility] 33Result Comment: [11/26/2016] [facility] Medications acetaminophen-oxyCODONE 325 mg-5 mg oral [...]
--- OUTSIDE RECORDS SUMMARY | 2024-05-20 07:32 | XMS_ITS | Continuity of Care Document ---
Author Organization [facility] Iain Ethan lt Address [address] [place] [address]- Care Team Providers Care Trade Mark Examiner Name Role Phone Karthik HENLEY, Isaiah Douglas Primary Care Physician [facility] Date(s): 08/03/20 - 09/02/20 [facility] Adult [address] [place] [address]- Allergies, Adverse Reactions, Alerts Substance Reaction Severity [...] Guardian Refuses 1Result Comment: [id number] 2Location History: [facility] [place] 3Result Comment: [11/26/2016] [facility] 4Result Comment: [11/26/2016] [facility] 5Result Comment: [11/26/2016] [facility] 6Result Comment: [11/26/2016] [facility] 7Result Comment: [11/26/2016] [facility] 8Result Comment: [11/26/2016] [facility] 9Result Comment: [11/26/2016] [facility] 10Result Comment: [11/26/2016] [facility] 11Result Comment: [11/26/2016] [facility] 12Result Comment: [11/26/2016] [facility] 13Result Comment: [11/26/2016] [facility] 14Result Comment: [11/26/2016] [facility] 15Result Comment: [11/26/2016] [facility] 16Result Comment: [11/26/2016] [facility] 17Result Comment: [11/26/2016] [facility] 18Result Comment: [11/26/2016] [facility] 19Result Comment: [11/26/2016] [facility] 20Result Comment: [11/26/2016] [facility] 21Result Comment: [11/26/2016] [facility] 22Result Comment: [11/26/2016] [facility] 23Result Comment: [11/26/2016] [facility] 24Result Comment: [11/26/2016] [facility] 25Result Comment: [11/26/2016] [facility] 26Result Comment: [11/26/2016] [facility] 27Result Comment: [11/26/2016] [facility] 28Result Comment: [11/26/2016] [facility] 29Result Comment: [11/26/2016] [facility] 30Result Comment: [11/26/2016] [facility] 31Result Comment: [11/26/2016] [facility] 32Result Comment: [11/26/2016] [facility] 33Result Comment: [11/26/2016] [facility] Medications carvedilol 12.5 mg oral tablet [...] Dry Weight Start Date: 02/26/20 Status: Ordered lidocaine 4% topical film 1 [...]
--- OUTSIDE RECORDS SUMMARY | 2024-05-20 07:32 | XMS_ITS | Continuity of Care Document ---
Author Organization [facility] Address [address] [place] [address]- Care Team Providers Care Travertine Installer Name Role Phone Karthik HENLEY, Isaiah Douglas Primary Care Physician Encounter [facility] Date(s): 10/30/22 - 11/29/22 [facility] [address] [place] [address]- Attending Physician: Segundo Martinez Admitting Physician: AdmSegundo renee Referring Physician: AdmtrSegundo Allergies, Adverse Reactions, Alerts Substance Reaction Severity Status codeine 1 Surgical adhesive ta pe itching Active Adhesive Bandage 2 Rash Active riTUXimab 3 Severe Active 1hives 2surgical tape allergy as per family 3developed anaphylaxis with throat closure sensation and facial swelling needed brief epinephrine drip Immunizations Given and Recorded Vaccine Date Status Refusal Reason tetanus-diphtheria toxoids (Td) 1 08/15/22 Given [id number] bivalent booster vax 07/05/22 Recorded influenza virus [...] Given Parent Or Guardian Refuses 1Result Comment: [id number] 2Result Comment: [facility] [place] 3Result Comment: [facility]-[id number] 4Location History: [facility] [place] 5Result Comment: [11/26/2016] [facility] 6Result Comment: [11/26/2016] [facility] 7Result Comment: [11/26/2016] [facility] 8Result Comment: [11/26/2016] [facility] 9Result Comment: [11/26/2016] [facility] 10Result Comment: [11/26/2016] [facility] 11Result Comment: [11/26/2016] [facility] 12Result Comment: [11/26/2016] [facility] 13Result Comment: [11/26/2016] [facility] 14Result Comment: [11/26/2016] [facility] 15Result Comment: [11/26/2016] [facility] 16Result Comment: [11/26/2016] [facility] 17Result Comment: [11/26/2016] [facility] 18Result Comment: [11/26/2016] [facility] 19Result Comment: [11/26/2016] [facility] 20Result Comment: [11/26/2016] [facility] 21Result Comment: [11/26/2016] [facility] 22Result Comment: [11/26/2016] [facility] 23Result Comment: [11/26/2016] [facility] 24Result Comment: [11/26/2016] [facility] 25Result Comment: [11/26/2016] [facility] 26Result Comment: [11/26/2016] [facility] 27Result Comment: [11/26/2016] [facility] 28Result Comment: [11/26/2016] [facility] 29Result Comment: [11/26/2016] [facility] 30Result Comment: [11/26/2016] [facility] 31Result Comment: [11/26/2016] [facility] 32Result Comment: [11/26/2016] [facility] 33Result Comment: [11/26/2016] [facility] 34Result Comment: [11/26/2016] [facility] 35Result Comment: [11/26/2016] [facility] Medications cholecalciferol 50 mcg (2000 intl [...] MD Position: [facility] Physician -Physician Practices Member Role: Lifetime Consulting Physician Name: Jeanmarie Lopez MD Position: [facility] Renal MD Member Role: Lifetime Consulting Physician Address: Address: [address], [address] [place] [address]- [place] Name: Lashonda Clifford Position: [facility] Outreach Member Role: Lifetime Consulting Physician Name: Tiera Wadsworth RN Position: [facility] RN Member Role: Primary Care Nurse Name: Isaiah Anegles MD Position: [facility] Primary Care Physician Member Role: PCP Address: Address: [address] [place] [address]- [place] Name: Annalise Lara RN Position: [facility] RN Member Role: Primary Care Nurse Name: Mark Wilkes MD Position: [facility] Renal MD Member Role: Lifetime Consulting Physician Address: Address: [address] [facility] [place] [address]- [place] Name: Bibiana Treviño RN Position: [facility] RN Member Role: Primary Care Nurse Care Team Related Persons Name: AKASHMACHELLE MIRA Address: [place] [id number] Name: AKASHMIRA CARTY Address: [address] [phone] Name: MIRA MILLER Address: [address] [id number] Name: MIRA MILLER Address: [address] [id number] Name: MRIA MILLER Address: [address] [phone] Name: MIRA MILLER Address: [address] [phone] Name: MIRA MILLER Address: [address] [phone] Name: PRATEEK MILLER Address: [address] [address] Name: BELEN MILLER Address: [address] [address] Name: BELEN MILLER Address: [address] [address]
--- OUTSIDE RECORDS SUMMARY | 2024-05-20 07:33 | XMS_ITS | Continuity of Care Document ---
Author Organization [facility] Ethan lt Address [address] [place] [address]- Care Team Providers Care Work Car Operator Name Role Phone Karthik HENLEY, Isaiah Douglas Primary Care Physician Encounter [facility] Date(s): 08/24/20 - 09/23/20 [facility] Adult [address] [place] [address]- Allergies, Adverse Reactions, Alerts Substance Reaction Severity [...] Given Parent Or Guardian Refuses 1Result Comment: [facility]-[id number] 2Location History: [facility] [place] 3Result Comment: [11/26/2016] [facility] 4Result Comment: [11/26/2016] [facility] 5Result Comment: [11/26/2016] [facility] 6Result Comment: [11/26/2016] [facility] 7Result Comment: [11/26/2016] [facility] 8Result Comment: [11/26/2016] [facility] 9Result Comment: [11/26/2016] [facility] 10Result Comment: [11/26/2016] [facility] 11Result Comment: [11/26/2016] [facility] 12Result Comment: [11/26/2016] [facility] 13Result Comment: [11/26/2016] [facility] 14Result Comment: [11/26/2016] [facility] 15Result Comment: [11/26/2016] [facility] 16Result Comment: [11/26/2016] [facility] 17Result Comment: [11/26/2016] [facility] 18Result Comment: [11/26/2016] [facility] 19Result Comment: [11/26/2016] [facility] 20Result Comment: [11/26/2016] [facility] 21Result Comment: [11/26/2016] [facility] 22Result Comment: [11/26/2016] [facility] 23Result Comment: [11/26/2016] [facility] 24Result Comment: [11/26/2016] [facility] 25Result Comment: [11/26/2016] [facility] 26Result Comment: [11/26/2016] [facility] 27Result Comment: [11/26/2016] [facility] 28Result Comment: [11/26/2016] [facility] 29Result Comment: [11/26/2016] [facility] 30Result Comment: [11/26/2016] [facility] 31Result Comment: [11/26/2016] [facility] 32Result Comment: [11/26/2016] [facility] 33Result Comment: [11/26/2016] [facility] Medications carvedilol 12.5 mg oral tablet 12.5 mg, 1, tablet, By Mouth, 2 times a day, PRN, # 30 tablet, Refills 0, Tot. Refills 0, Maintenance, elevated DBP, 07/23/20 7:22:00 EST, Do Not Route, Partial fill upon patient request if the prescription is for a schedule II opioid drug. Start Date: 07/23/20 Status: Ordered levothyroxine 125 mcg (0.125 mg) [...]
--- OUTSIDE RECORDS SUMMARY | 2024-05-20 07:33 | XMS_ITS | Continuity of Care Document ---
Author Organization [facility] Ethan lt Address [address] [place] [address]- Care Team Providers Care Rn Clinical Quality Name Role Phone Karthik HENLEY, Isaiah Douglas Primary Care Physician Encounter [facility] Date(s): 10/29/22 - 11/28/22 [facility] Adult [address] [place] [address]- Allergies, Adverse Reactions, Alerts Substance Reaction Severity Status codeine 1 Surgical adhesive ta pe itching Active Adhesive Bandage 2 Rash Active riTUXimab 3 Severe Active 1hives 2surgical tape allergy as per family 3developed anaphylaxis with throat closure sensation and facial swelling needed brief epinephrine drip Immunizations Given and Recorded Vaccine Date Status Refusal Reason tetanus-diphtheria toxoids (Td) 1 08/15/22 Given [id number] bivalent booster vax 07/05/22 Recorded influenza virus [...] Given Parent Or Guardian Refuses 1Result Comment: [id number] 2Result Comment: [facility] [place] 3Result Comment: [facility]-[id number] 4Location History: [facility] [place] 5Result Comment: [11/26/2016] [facility] 6Result Comment: [11/26/2016] [facility] 7Result Comment: [11/26/2016] [facility] 8Result Comment: [11/26/2016] [facility] 9Result Comment: [11/26/2016] [facility] 10Result Comment: [11/26/2016] [facility] 11Result Comment: [11/26/2016] [facility] 12Result Comment: [11/26/2016] [facility] 13Result Comment: [11/26/2016] [facility] 14Result Comment: [11/26/2016] [facility] 15Result Comment: [11/26/2016] [facility] 16Result Comment: [11/26/2016] [facility] 17Result Comment: [11/26/2016] [facility] 18Result Comment: [11/26/2016] [facility] 19Result Comment: [11/26/2016] [facility] 20Result Comment: [11/26/2016] [facility] 21Result Comment: [11/26/2016] [facility] 22Result Comment: [11/26/2016] [facility] 23Result Comment: [11/26/2016] [facility] 24Result Comment: [11/26/2016] [facility] 25Result Comment: [11/26/2016] [facility] 26Result Comment: [11/26/2016] [facility] 27Result Comment: [11/26/2016] [facility] 28Result Comment: [11/26/2016] [facility] 29Result Comment: [11/26/2016] [facility] 30Result Comment: [11/26/2016] [facility] 31Result Comment: [11/26/2016] [facility] 32Result Comment: [11/26/2016] [facility] 33Result Comment: [11/26/2016] [facility] 34Result Comment: [11/26/2016] [facility] 35Result Comment: [11/26/2016] [facility] Medications cholecalciferol 50 mcg (2000 intl [...] Team Personnel Name: Margaux Vivas RN Position: [facility] RN Member Role: Primary Care Nurse Name: Live Leyva MD Position: [facility] Physician -Physician Practices Member Role: Lifetime Consulting Physician Name: Jeanmarie Lopez MD Position: [facility] Renal MD Member Role: Lifetime Consulting Physician Address: Address: [address] [place] [address], [facility] [address] [facility] [place] [address]- [place] Name: Lashonda Clifford Position: [facility] Outreach Member Role: Lifetime Consulting Physician Name: Tiera Wadsworth RN Position: [facility] RN Member Role: Primary Care Nurse Name: Isaiah Angeles MD Position: [facility] Primary Care Physician Member Role: PCP Address: Address: [address] [place] [address]- [place] Name: Annalise Lara RN Position: [facility] RN Member Role: Primary Care Nurse Name: Mark Wilkes MD Position: [facility] Renal MD Member Role: Lifetime Consulting Physician Address: Address: [address] [facility] [place] [address]- [place] Name: Bibiana Treviño RN Position: [facility] RN Member Role: Primary Care Nurse Care Team Related Persons Name: MIRA MILLER Address: [address] [phone] Name: MIRA MILLER Address: [address] [phone] Name: MIRA MILLER Address: [address] [phone] Name: MIRA MILLER Address: [address] [phone] Name: MIRA MILLER Address: [address] [phone] Name: MIRA MILLER Address: [address] [phone] Name: MIRA MILLER Address: [address] [phone] Name: PRATEEK MILLER Address: [address] [address] Name: BELEN MILLER Address: [address] [address] Name: BELEN MILLER Address: [address] [address]
--- OUTSIDE RECORDS SUMMARY | 2024-05-20 07:33 | XMS_ITS | Continuity of Care Document ---
Author Organization [facility] Address [address] [place] [address]- Care Team Providers Care Engineer Specialist Name Role Phone Karthik HENLEY, Isaiah Douglas Primary Care Physician [phone] En[place] [facility] Date[place]s): 04/13/22 - 05/13/22 [facility] [address] [place] [address]- Allergies, Adverse Reactions, Alerts Substance Reaction Severity [...] Parent Or Guardian Refuses 1Result Comment: [facility]-[id number] 2Location History: [facility] [place] 3Result Comment: [11/26/2016] [facility] 4Result Comment: [11/26/2016] [facility] 5Result Comment: [11/26/2016] [facility] 6Result Comment: [11/26/2016] [facility] 7Result Comment: [11/26/2016] [facility] 8Result Comment: [11/26/2016] [facility] 9Result Comment: [11/26/2016] [facility] 10Result Comment: [11/26/2016] [facility] 11Result Comment: [11/26/2016] [facility] 12Result Comment: [11/26/2016] [facility] 13Result Comment: [11/26/2016] [facility] 14Result Comment: [11/26/2016] [facility] 15Result Comment: [11/26/2016] [facility] 16Result Comment: [11/26/2016] [facility] 17Result Comment: [11/26/2016] [facility] 18Result Comment: [11/26/2016] [facility] 19Result Comment: [11/26/2016] [facility] 20Result Comment: [11/26/2016] [facility] 21Result Comment: [11/26/2016] [facility] 22Result Comment: [11/26/2016] [facility] 23Result Comment: [11/26/2016] [facility] 24Result Comment: [11/26/2016] [facility] 25Result Comment: [11/26/2016] [facility] 26Result Comment: [11/26/2016] [facility] 27Result Comment: [11/26/2016] [facility] 28Result Comment: [11/26/2016] [facility] 29Result Comment: [11/26/2016] [facility] 30Result Comment: [11/26/2016] [facility] 31Result Comment: [11/26/2016] [facility] 32Result Comment: [11/26/2016] [facility] 33Result Comment: [11/26/2016] [facility] Medications Flovent 110 mcg Inhaler HFA [...] Team Personnel Name: Isaiah Angeles MD Address: [address] [place] [id number]
--- OUTSIDE RECORDS SUMMARY | 2024-05-20 07:33 | XMS_ITS | Continuity of Care Document ---
Author Organization [facility] Address [address] [place] [address]- Care Team Providers Care Rn Prior Authorization Name Role Phone Karthik HENLEY, Isaiah Douglas Primary Care Physician Encounter [facility] Date(s): 09/06/20 - 10/06/20 [facility] [address] [place] [address] Allergies, Adverse Reactions, [...] Refuses 1Result Comment: [facility]-[id number] 2Location History: [facility] [place] 3Result Comment: [11/26/2016] [facility] 4Result Comment: [11/26/2016] [facility] 5Result Comment: [11/26/2016] [facility] 6Result Comment: [11/26/2016] [facility] 7Result Comment: [11/26/2016] [facility] 8Result Comment: [11/26/2016] [facility] 9Result Comment: [11/26/2016] [facility] 10Result Comment: [11/26/2016] [facility] 11Result Comment: [11/26/2016] [facility] 12Result Comment: [11/26/2016] [facility] 13Result Comment: [11/26/2016] [facility] 14Result Comment: [11/26/2016] [facility] 15Result Comment: [11/26/2016] [facility] 16Result Comment: [11/26/2016] [facility] 17Result Comment: [11/26/2016] [facility] 18Result Comment: [11/26/2016] [facility] 19Result Comment: [11/26/2016] [facility] 20Result Comment: [11/26/2016] [facility] 21Result Comment: [11/26/2016] [facility] 22Result Comment: [11/26/2016] [facility] 23Result Comment: [11/26/2016] [facility] 24Result Comment: [11/26/2016] [facility] 25Result Comment: [11/26/2016] [facility] 26Result Comment: [11/26/2016] [facility] 27Result Comment: [11/26/2016] [facility] 28Result Comment: [11/26/2016] [facility] 29Result Comment: [11/26/2016] [facility] 30Result Comment: [11/26/2016] [facility] 31Result Comment: [11/26/2016] [facility] 32Result Comment: [11/26/2016] [facility] 33Result Comment: [11/26/2016] [facility] Medications carvedilol 12.5 mg oral tablet [...]
--- OUTSIDE RECORDS SUMMARY | 2024-05-20 07:33 | XMS_ITS | Continuity of Care Document ---
Author Organization [facility] Ethan lt Address [address] [place] [address]- Care Team Providers Care Accounting Lecturer Name Role Phone Karthik HENLEY, Isaiah Douglas Primary Care Physician Encounter [facility] Date(s): 03/13/21 - 04/12/21 [facility] Adult [address] [place] [address]- Allergies, Adverse Reactions, Alerts Substance Reaction Severity [...] Parent Or Guardian Refuses 1Result Comment: [facility]-[id number] 2Location History: [facility] [place] 3Result Comment: [11/26/2016] [facility] 4Result Comment: [11/26/2016] [facility] 5Result Comment: [11/26/2016] [facility] 6Result Comment: [11/26/2016] [facility] 7Result Comment: [11/26/2016] [facility] 8Result Comment: [11/26/2016] [facility] 9Result Comment: [11/26/2016] [facility] 10Result Comment: [11/26/2016] [facility] 11Result Comment: [11/26/2016] [facility] 12Result Comment: [11/26/2016] [facility] 13Result Comment: [11/26/2016] [facility] 14Result Comment: [11/26/2016] [facility] 15Result Comment: [11/26/2016] [facility] 16Result Comment: [11/26/2016] [facility] 17Result Comment: [11/26/2016] [facility] 18Result Comment: [11/26/2016] [facility] 19Result Comment: [11/26/2016] [facility] 20Result Comment: [11/26/2016] [facility] 21Result Comment: [11/26/2016] [facility] 22Result Comment: [11/26/2016] [facility] 23Result Comment: [11/26/2016] [facility] 24Result Comment: [11/26/2016] [facility] 25Result Comment: [11/26/2016] [facility] 26Result Comment: [11/26/2016] [facility] 27Result Comment: [11/26/2016] [facility] 28Result Comment: [11/26/2016] [facility] 29Result Comment: [11/26/2016] [facility] 30Result Comment: [11/26/2016] [facility] 31Result Comment: [11/26/2016] [facility] 32Result Comment: [11/26/2016] [facility] 33Result Comment: [11/26/2016] [facility] Medications levothyroxine 125 mcg (0.125 mg) [...]
--- OUTSIDE RECORDS SUMMARY | 2024-05-20 07:33 | XMS_ITS | Continuity of Care Document ---
Author Organization [facility] Iain Ethan lt Address [address] [place] [address]- Care Team Providers Care Recycling Worker Name Role Phone Karthik HENLEY, Isaiah Douglas Primary Care Physician Encounter [facility] Date(s): 02/29/20 - 03/30/20 [facility] Adult [address] [place] [address]- [facility] Allergies, Adverse Reactions, Alerts Substance Reaction Severity [...] Or Guardian Refuses 1Result Comment: [facility]-[id number] 2Location History: [facility] [place] 3Result Comment: [11/26/2016] [facility] 4Result Comment: [11/26/2016] [facility] 5Result Comment: [11/26/2016] [facility] 6Result Comment: [11/26/2016] [facility] 7Result Comment: [11/26/2016] [facility] 8Result Comment: [11/26/2016] [facility] 9Result Comment: [11/26/2016] [facility] 10Result Comment: [11/26/2016] [facility] 11Result Comment: [11/26/2016] [facility] 12Result Comment: [11/26/2016] [facility] 13Result Comment: [11/26/2016] [facility] 14Result Comment: [11/26/2016] [facility] 15Result Comment: [11/26/2016] [facility] 16Result Comment: [11/26/2016] [facility] 17Result Comment: [11/26/2016] [facility] 18Result Comment: [11/26/2016] [facility] 19Result Comment: [11/26/2016] [facility] 20Result Comment: [11/26/2016] [facility] 21Result Comment: [11/26/2016] [facility] 22Result Comment: [11/26/2016] [facility] 23Result Comment: [11/26/2016] [facility] 24Result Comment: [11/26/2016] [facility] 25Result Comment: [11/26/2016] [facility] 26Result Comment: [11/26/2016] [facility] 27Result Comment: [11/26/2016] [facility] 28Result Comment: [11/26/2016] [facility] 29Result Comment: [11/26/2016] [facility] 30Result Comment: [11/26/2016] [facility] 31Result Comment: [11/26/2016] [facility] 32Result Comment: [11/26/2016] [facility] 33Result Comment: [11/26/2016] [facility] Medications acetaminophen-oxyCODONE 325 mg-5 mg oral [...]
--- OUTSIDE RECORDS SUMMARY | 2024-05-20 07:33 | XMS_ITS | Continuity of Care Document ---
Author Organization [facility] Ethan lt Address [address] [place] [address]- Care Team Providers Care Retouching Operator Name Role Phone Karthik HENLEY, Isaiah Douglas Primary Care Physician Encounter [facility] Date(s): 07/21/21 - 08/20/21 [facility] Adult [address] [place] [address]- Allergies, Adverse Reactions, Alerts Substance Reaction Severity [...] Guardian Refuses 1Result Comment: [facility]-[id number] 2Location [facility] 3Result Comment: [11/26/2016] [facility] 4Result Comment: [11/26/2016] [facility] 5Result Comment: [11/26/2016] [facility] 6Result Comment: [11/26/2016] [facility] 7Result Comment: [11/26/2016] [facility] 8Result Comment: [11/26/2016] [facility] 9Result Comment: [11/26/2016] [facility] 10Result Comment: [11/26/2016] [facility] 11Result Comment: [11/26/2016] [facility] 12Result Comment: [11/26/2016] [facility] 13Result Comment: [11/26/2016] [facility] 14Result Comment: [11/26/2016] [facility] 15Result Comment: [11/26/2016] [facility] 16Result Comment: [11/26/2016] [facility] 17Result Comment: [11/26/2016] [facility] 18Result Comment: [11/26/2016] [facility] 19Result Comment: [11/26/2016] [facility] 20Result Comment: [11/26/2016] [facility] 21Result Comment: [11/26/2016] [facility] 22Result Comment: [11/26/2016] [facility] 23Result Comment: [11/26/2016] [facility] 24Result Comment: [11/26/2016] [facility] 25Result Comment: [11/26/2016] [facility] 26Result Comment: [11/26/2016] [facility] 27Result Comment: [11/26/2016] [facility] 28Result Comment: [11/26/2016] [facility] 29Result Comment: [11/26/2016] [facility] 30Result Comment: [11/26/2016] [facility] 31Result Comment: [11/26/2016] [facility] 32Result Comment: [11/26/2016] [facility] 33Result Comment: [11/26/2016] [facility] Medications lidocaine 4% topical film 1 [...]
--- OUTSIDE RECORDS SUMMARY | 2024-05-20 07:33 | XMS_ITS | Continuity of Care Document ---
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 3developed anaphylaxis with throat closure sensation and facial swelling needed brief epinephrine drip Immunizations Given and Recorded Vaccine Date Status Refusal Reason tetanus-diphtheria toxoids (Td) 1 08/15/22 Given [id number] bivalent booster vax 07/05/22 Recorded influenza virus [...] Given Parent Or Guardian Refuses 1Result Comment: [id number] 2Result Comment: [facility] [place] 3Result Comment: [facility]-[id number] 4Location History: [facility] [place] 5Result Comment: [11/26/2016] [facility] 6Result Comment: [11/26/2016] [facility] 7Result Comment: [11/26/2016] [facility] 8Result Comment: [11/26/2016] [facility] 9Result Comment: [11/26/2016] [facility] 10Result Comment: [11/26/2016] [facility] 11Result Comment: [11/26/2016] [facility] 12Result Comment: [11/26/2016] [facility] 13Result Comment: [11/26/2016] [facility] 14Result Comment: [11/26/2016] [facility] 15Result Comment: [11/26/2016] [facility] 16Result Comment: [11/26/2016] [facility] 17Result Comment: [11/26/2016] [facility] 18Result Comment: [11/26/2016] [facility] 19Result Comment: [11/26/2016] [facility] 20Result Comment: [11/26/2016] [facility] 21Result Comment: [11/26/2016] [facility] 22Result Comment: [11/26/2016] [facility] 23Result Comment: [11/26/2016] [facility] 24Result Comment: [11/26/2016] [facility] 25Result Comment: [11/26/2016] [facility] 26Result Comment: [11/26/2016] [facility] 27Result Comment: [11/26/2016] [facility] 28Result Comment: [11/26/2016] [facility] 29Result Comment: [11/26/2016] [facility] 30Result Comment: [11/26/2016] [facility] 31Result Comment: [11/26/2016] [facility] 32Result Comment: [11/26/2016] [facility] 33Result Comment: [11/26/2016] [facility] 34Result Comment: [11/26/2016] [facility] 35Result Comment: [11/26/2016] [facility] Medications cholecalciferol 50 mcg (2000 intl [...] Team Personnel Name: Margaux Vivas RN Position: [facility] RN Member Role: Primary Care Nurse Name: Live Leyva MD Position: [facility] Physician -Physician Practices Member Role: Lifetime Consulting Physician Name: Jeanmarie Lopez MD Position: [facility] Renal MD Member Role: Lifetime Consulting Physician Address: Address: [address] [place] [address], [address] [facility] [address] Name: Lashonda Clifford Position: [facility] Outreach Member Role: Lifetime Consulting Physician Name: Tiera Wadsworth RN Position: [facility] RN Member Role: Primary Care Nurse Name: Karthik HENLEY, Isaiah Douglas Position: [facility] Primary Care Physician Member Role: PCP Address: Address: [address] [place] [address]- Name: Annalise Lara RN Position: [facility] RN Member Role: Primary Care Nurse Name: Mark Wilkes MD Position: [facility] Renal MD Member Role: Lifetime Consulting Physician Address: Address: [address] [place] [address] [facility] [place] [address]- Name: Bibiana Treviño RN Position: [facility] RN Member Role: Primary Care Nurse Care Team Related Persons Name: MIRA MILLER Address: [place] [id number] Name: ANGELA MIRA Address: [place] [phone] Name: MIRA MILLER Address: [address] [phone] Name: AKASHMIRA CARTY Address: [address] [phone] Name: MIRA MILLER Address: [address] [phone] Name: ANGELA MIRA Address: [address] [phone] Name: MIRA MILLER Address: [address] [phone] Name: PRATEEK MILLER Address: [address] [address] Name: BELEN MILLER Address: home [address] [place] [address] Name: BELEN MILLER Address: home [address] [place] [address]
--- OUTSIDE RECORDS SUMMARY | 2024-05-20 07:33 | XMS_ITS | Continuity of Care Document ---
Author Organization [facility] Address [address] [place] [address]- Care Team Providers Care Master Rigger Name Role Phone Karthik HENLEY, Isaiah Douglas Primary Care Physician Encounter [facility] Date(s): 08/21/19 - 08/31/19 [facility] [address] [place] [address]- [facility] Attending Physician: Segundo Martinez Admitting Physician: AdmSegundo [...] Given Parent Or Guardian Refuses 1Result Comment: [facility]-[id number] 2Location History: [facility] [place] 3Result Comment: [11/26/2016] [facility] 4Result Comment: [11/26/2016] [facility] 5Result Comment: [11/26/2016] [facility] 6Result Comment: [11/26/2016] [facility] 7Result Comment: [11/26/2016] [facility] 8Result Comment: [11/26/2016] [facility] 9Result Comment: [11/26/2016] [facility] 10Result Comment: [11/26/2016] [facility] 11Result Comment: [11/26/2016] [facility] 12Result Comment: [11/26/2016] [facility] 13Result Comment: [11/26/2016] [facility] 14Result Comment: [11/26/2016] [facility] 15Result Comment: [11/26/2016] [facility] 16Result Comment: [11/26/2016] [facility] 17Result Comment: [11/26/2016] [facility] 18Result Comment: [11/26/2016] [facility] 19Result Comment: [11/26/2016] [facility] 20Result Comment: [11/26/2016] [facility] 21Result Comment: [11/26/2016] [facility] 22Result Comment: [11/26/2016] [facility] 23Result Comment: [11/26/2016] [facility] 24Result Comment: [11/26/2016] [facility] 25Result Comment: [11/26/2016] [facility] 26Result Comment: [11/26/2016] [facility] 27Result Comment: [11/26/2016] [facility] 28Result Comment: [11/26/2016] [facility] 29Result Comment: [11/26/2016] [facility] 30Result Comment: [11/26/2016] [facility] 31Result Comment: [11/26/2016] [facility] 32Result Comment: [11/26/2016] [facility] 33Result Comment: [11/26/2016] [facility] Medications ferrous sulfate 325 mg oral [...] EST Start Date: 08/14/19 Status: Ordered levothyroxine 150 mcg (0.15 mg) oral tablet 1 tablet = 150 mcg, By Mouth, Daily, # 30 tablet, 11 Refills, Maintenance, 07/21/19 5:38:39 EST, Tablet Start Date: 07/21/19 Status: Ordered lisinopril 5 mg oral tablet [...]
--- OUTSIDE RECORDS SUMMARY | 2024-05-20 07:33 | XMS_ITS | Continuity of Care Document ---
Author Organization [facility] Iain Ethan lt Address [address] [place] [address]- Care Team Providers Care Health Sanitarian Name Role Phone Karthik HENLEY, Isaiah Douglas Primary Care Physician Encounter [facility] Date(s): 08/03/20 - 09/02/20 [facility] Adult [address] [place] [address]- Allergies, Adverse Reactions, Alerts Substance Reaction Severity [...] Given Parent Or Guardian Refuses 1Result Comment: [facility]-[id number] 2Location History: [facility] [place] 3Result Comment: [11/26/2016] [facility] 4Result Comment: [11/26/2016] [facility] 5Result Comment: [11/26/2016] [facility] 6Result Comment: [11/26/2016] [facility] 7Result Comment: [11/26/2016] [facility] 8Result Comment: [11/26/2016] [facility] 9Result Comment: [11/26/2016] [facility] 10Result Comment: [11/26/2016] [facility] 11Result Comment: [11/26/2016] [facility] 12Result Comment: [11/26/2016] [facility] 13Result Comment: [11/26/2016] [facility] 14Result Comment: [11/26/2016] [facility] 15Result Comment: [11/26/2016] [facility] 16Result Comment: [11/26/2016] [facility] 17Result Comment: [11/26/2016] [facility] 18Result Comment: [11/26/2016] [facility] 19Result Comment: [11/26/2016] [facility] 20Result Comment: [11/26/2016] [facility] 21Result Comment: [11/26/2016] [facility] 22Result Comment: [11/26/2016] [facility] 23Result Comment: [11/26/2016] [facility] 24Result Comment: [11/26/2016] [facility] 25Result Comment: [11/26/2016] [facility] 26Result Comment: [11/26/2016] [facility] 27Result Comment: [11/26/2016] [facility] 28Result Comment: [11/26/2016] [facility] 29Result Comment: [11/26/2016] [facility] 30Result Comment: [11/26/2016] [facility] 31Result Comment: [11/26/2016] [facility] 32Result Comment: [11/26/2016] [facility] 33Result Comment: [11/26/2016] [facility] Medications carvedilol 12.5 mg oral tablet [...]
--- OUTSIDE RECORDS SUMMARY | 2024-05-20 07:33 | XMS_ITS | Continuity of Care Document ---
Author Organization [facility] Address [address] [place] [address]- Care Team Providers Care Cast Iron Drain Pipe Layer Name Role Phone Karthik HENLEY, Isaiah Douglas Primary Care Physician [phone] Encounter [facility] Date(s): 01/11/23 - 02/10/23 [facility] [address] [place] [id number] Allergies, Adverse Reactions, Alerts Substance Reaction Severity Status codeine 1 Surgical adhesive ta pe itching Active Adhesive Bandage 2 Rash Active riTUXimab 3 Severe Active 1hives 2surgical tape allergy as per family 3developed anaphylaxis with throat closure sensation and facial swelling needed brief epinephrine drip Immunizations Given and Recorded Vaccine Date Status Refusal Reason tetanus-diphtheria toxoids (Td) 1 08/15/22 Given [id number] bivalent booster vax 07/05/22 Recorded influenza virus [...] Given Parent Or Guardian Refuses 1Result Comment: [id number] 2Result Comment: [facility] [place] 3Result Comment: [facility]-[id number] 4Location History: [facility] [place] 5Result Comment: [11/26/2016] [facility] 6Result Comment: [11/26/2016] [facility] 7Result Comment: [11/26/2016] [facility] 8Result Comment: [11/26/2016] [facility] 9Result Comment: [11/26/2016] [facility] 10Result Comment: [11/26/2016] [facility] 11Result Comment: [11/26/2016] [facility] 12Result Comment: [11/26/2016] [facility] 13Result Comment: [11/26/2016] [facility] 14Result Comment: [11/26/2016] [facility] 15Result Comment: [11/26/2016] [facility] 16Result Comment: [11/26/2016] [facility] 17Result Comment: [11/26/2016] [facility] 18Result Comment: [11/26/2016] [facility] 19Result Comment: [11/26/2016] [facility] 20Result Comment: [11/26/2016] [facility] 21Result Comment: [11/26/2016] [facility] 22Result Comment: [11/26/2016] [facility] 23Result Comment: [11/26/2016] [facility] 24Result Comment: [11/26/2016] [facility] 25Result Comment: [11/26/2016] [facility] 26Result Comment: [11/26/2016] [facility] 27Result Comment: [11/26/2016] [facility] 28Result Comment: [11/26/2016] [facility] 29Result Comment: [11/26/2016] [facility] 30Result Comment: [11/26/2016] [facility] 31Result Comment: [11/26/2016] [facility] 32Result Comment: [11/26/2016] [facility] 33Result Comment: [11/26/2016] [facility] 34Result Comment: [11/26/2016] [facility] 35Result Comment: [11/26/2016] [facility] Medications cholecalciferol 50 mcg (2000 intl [...] Role: Lifetime Consulting Physician Address: Address: [address] [place] [address], [facility] [address] [facility] [place], [place] [address] Name: Lashonda Clifford Position: [facility] Outreach Member Role: Lifetime Consulting Physician Name: Isaiah Angeles MD Position: [facility] Physician - Primary Care Member Role: PCP Address: Address: [address] [place] [id number] Name: Annalise Lara RN Position: [facility] RN Member Role: Primary Care Nurse Name: Mark Wilkes MD Position: [facility] Renal MD Member Role: Lifetime Consulting Physician Address: Address: [address] [place] [address] [facility] [place], [place] [address] Name: Bibiana Treviño RN Position: [facility] RN Member Role: Primary Care Nurse Care Team Related Persons Name: MIRA MILLER Address: home [address] [place] [address] Name: MIRA MILLER Address: home [address] [place] [address] Name: MIRA MILLER Address: [address] [phone] Name: MIRA MILLER Address: [address], [phone] Name: MIRA MILLER Address: [address] [id number] Name: MIRA MILLER Address: [address], [id number] Name: MIRA MILLER Address: [address] [id number] Name: PRATEEK MILLER Address: [address] [address] Name: BELEN MILLER Address: [address] [address] Name: BELEN MILLER Address: [address] [address]
--- OUTSIDE RECORDS SUMMARY | 2024-05-20 07:33 | XMS_ITS | Continuity of Care Document ---
Author Organization [facility] Address [address] [place] [address]- Care Team Providers Care Water Resources Engineer Name Role Phone Karthik HENLEY, Isaiah Douglas Primary Care Physician Encounter [facility] Date(s): 04/29/23 - 05/29/23 [facility] [address] [place] [id number] Allergies, Adverse Reactions, Alerts Substance Reaction [...] corded tetanus-diphtheria toxoids (Td) 10 08/15/22 Given [id number] bivalent booster vax 07/05/22 Recorded SARS-CoV-2 (COVID-19) [...] Comment: [facility] [place] 2Result Comment: [facility] 3]-[id number] 3Location History: [facility] [place] 4Result Comment: [11/26/2016] [facility] 5Result Comment: [11/26/2016] [facility] 6Result Comment: [11/26/2016] [facility] 7Result Comment: [11/26/2016] [facility] 8Result Comment: [11/26/2016] [facility] 9Result Comment: [11/26/2016] [facility] 10Result Comment: [id number] 11Result Comment: [11/26/2016] [facility] 12Result Comment: [11/26/2016] [facility] 13Result Comment: [11/26/2016] [facility] 14Result Comment: [11/26/2016] [facility] 15Result Comment: [11/26/2016] [facility] 16Result Comment: [11/26/2016] [facility] 17Result Comment: [11/26/2016] [facility] 18Result Comment: [11/26/2016] [facility] 19Result Comment: [11/26/2016] [facility] 20Result Comment: [11/26/2016] [facility] 21Result Comment: [11/26/2016] [facility] 22Result Comment: [11/26/2016] [facility] 23Result Comment: [11/26/2016] [facility] 24Result Comment: [11/26/2016] [facility] 25Result Comment: [11/26/2016] [facility] 26Result Comment: [11/26/2016] [facility] 27Result Comment: [11/26/2016] [facility] 28Result Comment: [11/26/2016] [facility] 29Result Comment: [11/26/2016] [facility] 30Result Comment: [11/26/2016] [facility] 31Result Comment: [11/26/2016] [facility] 32Result Comment: [11/26/2016] [facility] 33Result Comment: [11/26/2016] [facility] 34Result Comment: [11/26/2016] [facility] 35Result Comment: [11/26/2016] [facility] Medications Flovent 110 mcg Inhaler HFA [...] Refills, Maintenance, 05/02/23 12:03:00 EDT, [facility], Partial fill upon patient request if the prescription is for a schedule... Start Date: 05/02/23 Status: Ordered levothyroxine 25 mcg (0.025 mg)/mL oral solution 1 mL = 25 mcg, By Mouth, Daily, to be taken with the 200mcg liquid daily to total 225mcg daily, # 30 mL, 6 Refills, Maintenance, 05/02/23 12:01:00 EDT, [facility], Partial fill upon patient request [...] Role: Lifetime Consulting Physician Address: Address: [address] [place] [address], [address] [facility] [address] Name: Lashonda Clifford Position: [facility] Outreach Member Role: Lifetime Consulting Physician Name: Tiera Wadsworth RN Position: [facility] RN Member Role: Primary Care Nurse Name: Isaiah Angeles MD Position: [facility] Physician - Primary Care Member Role: PCP Address: Address: [address] [place] [address]- [place] Name: Annalise Lara RN Position: [facility] RN Member Role: Primary Care Nurse Name: Mark Wilkes MD Position: [facility] Renal MD Member Role: Lifetime Consulting Physician Address: Address: [address] [place] [address] [facility] [place] [address]- Name: Bibiana Treviño RN Position: [facility] RN Member Role: Primary Care Nurse Care Team Related Persons Name: MIRA MILLER Address: [place] Address: home [address] [place] [address] Name: MIRA MILLER Address: home [address] [place] [phone] Name: PRATEEK MILLER Address: [address] [place] [address] Name: BELEN MILLER Address: home [address] [place] [address] Name: BELEN MILLER Address: home [address] [place] [address]
--- OUTSIDE RECORDS SUMMARY | 2024-05-20 07:33 | XMS_ITS | Continuity of Care Document ---
Author Organization [facility] Ethan lt Address [address] [place] [address]- Care Team Providers Care Automatic Cigar Wrapper Tender Name Role Phone Karthik HENLEY, Isaiah Douglas Primary Care Physician Encounter [facility] Date(s): 10/26/22 - 11/25/22 [facility] Adult [address] [place] [address]- Allergies, Adverse Reactions, Alerts Substance Reaction Severity Status codeine 1 Surgical adhesive ta pe itching Active Adhesive Bandage 2 Rash Active riTUXimab 3 Severe Active 1hives 2surgical tape allergy as per family 3developed anaphylaxis with throat closure sensation and facial swelling needed brief epinephrine drip Immunizations Given and Recorded Vaccine Date Status Refusal Reason tetanus-diphtheria toxoids (Td) 1 08/15/22 Given [id number] bivalent booster vax 07/05/22 Recorded influenza virus [...] Given Parent Or Guardian Refuses 1Result Comment: [id number] 2Result Comment: [facility] [place] 3Result Comment: [facility]-[id number] 4Location History: [facility] [place] 5Result Comment: [11/26/2016] [facility] 6Result Comment: [11/26/2016] [facility] 7Result Comment: [11/26/2016] [facility] 8Result Comment: [11/26/2016] [facility] 9Result Comment: [11/26/2016] [facility] 10Result Comment: [11/26/2016] [facility] 11Result Comment: [11/26/2016] [facility] 12Result Comment: [11/26/2016] [facility] 13Result Comment: [11/26/2016] [facility] 14Result Comment: [11/26/2016] [facility] 15Result Comment: [11/26/2016] [facility] 16Result Comment: [11/26/2016] [facility] 17Result Comment: [11/26/2016] [facility] 18Result Comment: [11/26/2016] [facility] 19Result Comment: [11/26/2016] [facility] 20Result Comment: [11/26/2016] [facility] 21Result Comment: [11/26/2016] [facility] 22Result Comment: [11/26/2016] [facility] 23Result Comment: [11/26/2016] [facility] 24Result Comment: [11/26/2016] [facility] 25Result Comment: [11/26/2016] [facility] 26Result Comment: [11/26/2016] [facility] 27Result Comment: [11/26/2016] [facility] 28Result Comment: [11/26/2016] [facility] 29Result Comment: [11/26/2016] [facility] 30Result Comment: [11/26/2016] [facility] 31Result Comment: [11/26/2016] [facility] 32Result Comment: [11/26/2016] [facility] 33Result Comment: [11/26/2016] [facility] 34Result Comment: [11/26/2016] [facility] 35Result Comment: [11/26/2016] [facility] Medications cholecalciferol 50 mcg (2000 intl [...] Team Personnel Name: Margaux Vivas RN Position: [facility] RN Member Role: Primary Care Nurse Name: Live Leyva MD Position: [facility] Physician -Physician Practices Member Role: Lifetime Consulting Physician Name: Jeanmarie Lopez MD Position: [facility] Renal MD Member Role: Lifetime Consulting Physician Address: Address: [address] [place] [address], [facility] [address] [facility] [place] [address]- [place] Name: Lashonda Clifford Position: [facility] Outreach Member Role: Lifetime Consulting Physician Name: Tiera Wadsworth RN Position: [facility] RN Member Role: Primary Care Nurse Name: Isaiah Angeles MD Position: [facility] Primary Care Physician Member Role: PCP Address: Address: [address] [place] [address]- [place] Name: Annalise Lara RN Position: [facility] RN Member Role: Primary Care Nurse Name: Mark Wilkes MD Position: [facility] Renal MD Member Role: Lifetime Consulting Physician Address: Address: [address] [facility] [place] [address]- [place] Name: Bibiana Treviño RN Position: [facility] RN Member Role: Primary Care Nurse Care Team Related Persons Name: MIRA MILLER Address: [address] [id number] Name: MIRA MILLER Address: [address] [id number] Name: MIRA MILLER Address: [address] [phone] Name: MIRA MILLER Address: [address] [id number] Name: MIRA MILLER Address: [address] [id number] Name: MIRA MILLER Address: [address] [id number] Name: MIRA MILLER Address: [address] [id number] Name: PRATEEK MILLER Address: [address] [address] Name: BELEN MILLER Address: [address] [address] Name: BELEN MILLER Address: [address] [address]
--- OUTSIDE RECORDS SUMMARY | 2024-05-20 07:33 | XMS_ITS | Continuity of Care Document ---
Author Organization [facility] Ethan lt Address [address] [place] [address]- Care Team Providers Care Cooking Show Host Name Role Phone Karthik HENLEY, Isaiah Douglas Primary Care Physician Encounter [facility] Date(s): 10/19/20 - 11/18/20 [facility] Adult [address] [place] [address]- Allergies, Adverse Reactions, Alerts Substance Reaction Severity [...] 1Result Comment: [facility]-[id number] 2Location History: [facility] [place] 3Result Comment: [11/26/2016] [facility] 4Result Comment: [...] Peds 33Result Comment: [11/26/2016] [facility] Medications lidocaine 4% topical film 1 [...]
--- OUTSIDE RECORDS SUMMARY | 2024-05-20 07:33 | XMS_ITS | Continuity of Care Document ---
Author Organization [facility] Ethan lt Address [address] [place] [address]- Care Team Providers Care Black Powder Glazing Operator Name Role Phone Karthik HENLEY, Isaiah Douglas Primary Care Physician [phone] Encounter [facility] Date(s): 07/25/21 - 08/24/21 [facility] Adult [address] [place] [address]- Allergies, Adverse Reactions, Alerts Substance Reaction Severity [...] Given Parent Or Guardian Refuses 1Result Comment: [facility]-[id number] 2[facility] 3Result Comment: [11/26/2016] [facility] 4Result Comment: [11/26/2016] [facility] 5Result Comment: [11/26/2016] [facility] 6Result Comment: [11/26/2016] [facility] 7Result Comment: [11/26/2016] [facility] 8Result Comment: [11/26/2016] [facility] 9Result Comment: [11/26/2016] [facility] 10Result Comment: [11/26/2016] [facility] 11Result Comment: [11/26/2016] [facility] 12Result Comment: [11/26/2016] [facility] 13Result Comment: [11/26/2016] [facility] 14Result Comment: [11/26/2016] [facility] 15Result Comment: [11/26/2016] [facility] 16Result Comment: [11/26/2016] [facility] 17Result Comment: [11/26/2016] [facility] 18Result Comment: [11/26/2016] [facility] 19Result Comment: [11/26/2016] [facility] 20Result Comment: [11/26/2016] [facility] 21Result Comment: [11/26/2016] [facility] 22Result Comment: [11/26/2016] [facility] 23Result Comment: [11/26/2016] [facility] 24Result Comment: [11/26/2016] [facility] 25Result Comment: [11/26/2016] [facility] 26Result Comment: [11/26/2016] [facility] 27Result Comment: [11/26/2016] [facility] 28Result Comment: [11/26/2016] [facility] 29Result Comment: [11/26/2016] [facility] 30Result Comment: [11/26/2016] [facility] 31Result Comment: [11/26/2016] [facility] 32Result Comment: [11/26/2016] [facility] 33Result Comment: [11/26/2016] [facility] Medications lidocaine 4% topical film 1 [...]
--- OUTSIDE RECORDS SUMMARY | 2024-05-20 07:33 | XMS_ITS | Continuity of Care Document ---
Author Organization [facility] Ethan lt Address [address] [place] [address]- Care Team Providers Care Continuous Churn Buttermaker Name Role Phone Karthik HENLEY, Isaiah Douglas Primary Care Physician [facility] [facility] Date[place] 03/14/21 - 04/13/21 [facility] Adult [address] [place] [address]- Allergies, Adverse Reactions, Alerts Substance Reaction Severity [...] Parent Or Guardian Refuses 1Result Comment: [facility]-[id number] 2Location History: [facility] [place] 3Result Comment: [11/26/2016] [facility] 4Result Comment: [11/26/2016] [facility] 5Result Comment: [11/26/2016] [facility] 6Result Comment: [11/26/2016] [facility] 7Result Comment: [11/26/2016] [facility] 8Result Comment: [11/26/2016] [facility] 9Result Comment: [11/26/2016] [facility] 10Result Comment: [11/26/2016] [facility] 11Result Comment: [11/26/2016] [facility] 12Result Comment: [11/26/2016] [facility] 13Result Comment: [11/26/2016] [facility] 14Result Comment: [11/26/2016] [facility] 15Result Comment: [11/26/2016] [facility] 16Result Comment: [11/26/2016] [facility] 17Result Comment: [11/26/2016] [facility] 18Result Comment: [11/26/2016] [facility] 19Result Comment: [11/26/2016] [facility] 20Result Comment: [11/26/2016] [facility] 21Result Comment: [11/26/2016] [facility] 22Result Comment: [11/26/2016] [facility] 23Result Comment: [11/26/2016] [facility] 24Result Comment: [11/26/2016] [facility] 25Result Comment: [11/26/2016] [facility] 26Result Comment: [11/26/2016] [facility] 27Result Comment: [11/26/2016] [facility] 28Result Comment: [11/26/2016] [facility] 29Result Comment: [11/26/2016] [facility] 30Result Comment: [11/26/2016] [facility] 31Result Comment: [11/26/2016] [facility] 32Result Comment: [11/26/2016] [facility] 33Result Comment: [11/26/2016] [facility] Medications levothyroxine 125 mcg (0.125 mg) [...]
--- OUTSIDE RECORDS SUMMARY | 2024-05-20 07:33 | XMS_ITS | Continuity of Care Document ---
Author Organization [facility] Ethan lt Address [address] [place] [address]- Care Team Providers Care U.S. Revenue Officer Name Role Phone Karthik HENLEY, Isaiah Douglas Primary Care Physician Encounter [facility] Date(s): 06/27/21 - 07/27/21 [facility] Adult [address] [place] [address]- Allergies, Adverse Reactions, Alerts Substance Reaction Severity [...] Guardian Refuses 1Result Comment: [facility]-[id number] 2Location History: [facility] [place] 3Result Comment: [11/26/2016] [facility] 4Result Comment: [11/26/2016] [facility] 5Result Comment: [11/26/2016] [facility] 6Result Comment: [11/26/2016] [facility] 7Result Comment: [11/26/2016] [facility] 8Result Comment: [11/26/2016] [facility] 9Result Comment: [11/26/2016] [facility] 10Result Comment: [11/26/2016] [facility] 11Result Comment: [11/26/2016] [facility] 12Result Comment: [11/26/2016] [facility] 13Result Comment: [11/26/2016] [facility] 14Result Comment: [11/26/2016] [facility] 15Result Comment: [11/26/2016] [facility] 16Result Comment: [11/26/2016] [facility] 17Result Comment: [11/26/2016] [facility] 18Result Comment: [11/26/2016] [facility] 19Result Comment: [11/26/2016] [facility] 20Result Comment: [11/26/2016] [facility] 21Result Comment: [11/26/2016] [facility] 22Result Comment: [11/26/2016] [facility] 23Result Comment: [11/26/2016] [facility] 24Result Comment: [11/26/2016] [facility] 25Result Comment: [11/26/2016] [facility] 26Result Comment: [11/26/2016] [facility] 27Result Comment: [11/26/2016] [facility] 28Result Comment: [11/26/2016] [facility] 29Result Comment: [11/26/2016] [facility] 30Result Comment: [11/26/2016] [facility] 31Result Comment: [11/26/2016] [facility] 32Result Comment: [11/26/2016] [facility] 33Result Comment: [11/26/2016] [facility] Medications lidocaine 4% topical film 1 [...]
--- OUTSIDE RECORDS SUMMARY | 2024-05-20 07:33 | XMS_ITS | Continuity of Care Document ---
Author Organization [facility] Address [address] [place] [address]- Care Team Providers Care Manufacturing Plant Controller Name Role Phone Karthik HENLEY, Isaiah Douglas Primary Care Physician Encounter [facility] Date(s): 11/07/20 - 12/07/20 [facility] [address] [place] [address] Allergies, Adverse Reactions, Alerts Substance Reaction [...] Parent Or Guardian Refuses 1Result Comment: [facility]-[id number] 2Location History: [facility] [place] 3Result Comment: [11/26/2016] [facility] 4Result Comment: [11/26/2016] [facility] 5Result Comment: [11/26/2016] [facility] 6Result Comment: [11/26/2016] [facility] 7Result Comment: [11/26/2016] [facility] 8Result Comment: [11/26/2016] [facility] 9Result Comment: [11/26/2016] [facility] 10Result Comment: [11/26/2016] [facility] 11Result Comment: [11/26/2016] [facility] 12Result Comment: [11/26/2016] [facility] 13Result Comment: [11/26/2016] [facility] 14Result Comment: [11/26/2016] [facility] 15Result Comment: [11/26/2016] [facility] 16Result Comment: [11/26/2016] [facility] 17Result Comment: [11/26/2016] [facility] 18Result Comment: [11/26/2016] [facility] 19Result Comment: [11/26/2016] [facility] 20Result Comment: [11/26/2016] [facility] 21Result Comment: [11/26/2016] [facility] 22Result Comment: [11/26/2016] [facility] 23Result Comment: [11/26/2016] [facility] 24Result Comment: [11/26/2016] [facility] 25Result Comment: [11/26/2016] [facility] 26Result Comment: [11/26/2016] [facility] 27Result Comment: [11/26/2016] [facility] 28Result Comment: [11/26/2016] [facility] 29Result Comment: [11/26/2016] [facility] 30Result Comment: [11/26/2016] [facility] 31Result Comment: [11/26/2016] [facility] 32Result Comment: [11/26/2016] [facility] 33Result Comment: [11/26/2016] [facility]ations lidocaine 4% topical film 1 [...]
--- OUTSIDE RECORDS SUMMARY | 2024-05-20 07:33 | XMS_ITS | Continuity of Care Document ---
Author Organization [facility] Ethan lt Address [address] [place] [address]- Care Team Providers Care Window Assembler Name Role Phone Karthik HENLEY, Isaiah Douglas Primary Care Physician [place] [facility] Date(s): 09/04/23 - 10/04/23 [facility] Adult [address] [place] [address]- Allergies, Adverse Reactions, Alerts Substance Reaction Severity [...] corded tetanus-diphtheria toxoids (Td) 10 08/15/22 Given [id number] bivalent booster vax 07/05/22 Recorded SARS-CoV-2 (COVID-19) [...] Comment: [facility] [place] 2Result Comment: [facility]-[id number] 3Location History: [facility] [place] 4Result Comment: [11/26/2016] [facility] 5Result Comment: [11/26/2016] [facility] 6Result Comment: [11/26/2016] [facility] 7Result Comment: [11/26/2016] [facility] 8Result Comment: [11/26/2016] [facility] 9Result Comment: [11/26/2016] [facility] 10Result Comment: [id number] 11Result Comment: [11/26/2016] [facility] 12Result Comment: [11/26/2016] [facility] 13Result Comment: [11/26/2016] [facility] 14Result Comment: [11/26/2016] [facility] 15Result Comment: [11/26/2016] [facility] 16Result Comment: [11/26/2016] [facility] 17Result Comment: [11/26/2016] [facility] 18Result Comment: [11/26/2016] [facility] 19Result Comment: [11/26/2016] [facility] 20Result Comment: [11/26/2016] [facility] 21Result Comment: [11/26/2016] [facility] 22Result Comment: [11/26/2016] [facility] 23Result Comment: [11/26/2016] [facility] 24Result Comment: [11/26/2016] [facility] 25Result Comment: [11/26/2016] [facility] 26Result Comment: [11/26/2016] [facility] 27Result Comment: [11/26/2016] [facility] 28Result Comment: [11/26/2016] [facility] 29Result Comment: [11/26/2016] [facility] 30Result Comment: [11/26/2016] [facility] 31Result Comment: [11/26/2016] [facility] 32Result Comment: [11/26/2016] [facility] 33Result Comment: [11/26/2016] [facility] 34Result Comment: [11/26/2016] [facility] 35Result Comment: [11/26/2016] [facility] Medications Flovent 110 mcg Inhaler HFA [...] Team Personnel Name: Live Leyva MD Position: [facility] Physician -Physician Practices Member Role: Lifetime Consulting Physician Name: Jeanmarie Lopez MD Position: [facility] Renal MD Member Role: Lifetime Consulting Physician Address: Address: [address] [place] [address] [address] [place] [address]- Name: Lashonda Clifford Position: [facility] Outreach Member Role: Lifetime Consulting Physician Name: Tiera Wadsworth RN Position: [facility] RN Member Role: Primary Care Nurse Name: Isaiah Angeles MD Position: [facility] Physician - Primary Care Member Role: PCP Address: Address: [address] [place] [address]- [place] Name: Annalise Lara RN Position: [facility] RN Member Role: Primary Care Nurse Name: Mark Wilkes MD Position: [facility] Renal MD Member Role: Lifetime Consulting Physician Address: Address: [address] [place] [address] [facility] [place] [address]- Name: Bibiana Treviño RN Position: [facility] RN Member Role: Primary Care Nurse Care Team Related Persons Name: MIRA MILLER Address: [place] Address: [address] [place] [address] Name: MIRA MILLER Address: home [address] [place] [id number] Name: PRATEEK MILLER Address: [address] [place] [address] Name: BELEN MILLER Address: [address] [place] [address] Name: BELEN MILLER Address: [address] [place] [address]
--- OUTSIDE RECORDS SUMMARY | 2024-05-20 07:34 | XMS_ITS | Continuity of Care Document ---
Author Organization [facility] Address [address] [place] [address]- Care Team Providers Care Janitor Cleaner Name Role Phone Karthik HENLEY, Isaiah Douglas Primary Care Physician Encounter [facility] Date(s): 11/13/21 - 12/13/21 [facility] [address] [place] [address]- Allergies, Adverse Reactions, Alerts Substance Reaction Severity [...] Or Guardian Refuses 1Result Comment: [facility]-[id number] 2Location History: [facility] [place] 3Result Comment: [11/26/2016] [facility] 4Result Comment: [11/26/2016] [facility] 5Result Comment: [11/26/2016] [facility] 6Result Comment: [11/26/2016] [facility] 7Result Comment: [11/26/2016] [facility] 8Result Comment: [11/26/2016] [facility] 9Result Comment: [11/26/2016] [facility] 10Result Comment: [11/26/2016] [facility] 11Result Comment: [11/26/2016] [facility] 12Result Comment: [11/26/2016] [facility] 13Result Comment: [11/26/2016] [facility] 14Result Comment: [11/26/2016] [facility] 15Result Comment: [11/26/2016] [facility] 16Result Comment: [11/26/2016] [facility] 17Result Comment: [11/26/2016] [facility] 18Result Comment: [11/26/2016] [facility] 19Result Comment: [11/26/2016] [facility] 20Result Comment: [11/26/2016] [facility] 21Result Comment: [11/26/2016] [facility] 22Result Comment: [11/26/2016] [facility] 23Result Comment: [11/26/2016] [facility] 24Result Comment: [11/26/2016] [facility] 25Result Comment: [11/26/2016] [facility] 26Result Comment: [11/26/2016] [facility] 27Result Comment: [11/26/2016] [facility] 28Result Comment: [11/26/2016] [facility] 29Result Comment: [11/26/2016] [facility] 30Result Comment: [11/26/2016] [facility] 31Result Comment: [11/26/2016] [facility] 32Result Comment: [11/26/2016] [facility] 33Result Comment: [11/26/2016] [facility] Medications calcium (as carbonate) 500 mg [...]
--- OUTSIDE RECORDS SUMMARY | 2024-05-20 07:34 | XMS_ITS | Continuity of Care Document ---
Author Organization [facility] Address [address] [place] [address]- Care Team Providers Care Mulcher Operator Name Role Phone Karthik HENLEY, Isaiah Douglas Primary Care Physician [facility] Date[facility]): 10/[facility]/22 - 11/29/22 [facility] [address] [place] [address]- Encounter Diagnosis Essential hypertension(Discharge Diagnosis) - 10/29/22 Mitral valve prolapse(Discharge Diagnosis) - 10/29/22 Palpitations(Discharge Diagnosis) - 10/29/22 Attending Physician: Eusebio MOON, Robert Kumar Admitting Physician: Robert Kaplan NP Referring Physician: Isaiah Angeles MD Allergies, Adverse [...] Reason tetanus-diphtheria toxoids (Td) 1 08/15/22 Given [id number] bivalent booster vax 07/05/22 Recorded influenza virus [...] Given Parent Or Guardian Refuses 1Result Comment: [id number] 2Result Comment: [facility] [place] 3Result Comment: [facility]-[id number] 4Location History: [facility] [place] 5Result Comment: [11/26/2016] [facility] 6Result Comment: [11/26/2016] [facility] 7Result Comment: [11/26/2016] [facility] 8Result Comment: [11/26/2016] [facility] 9Result Comment: [11/26/2016] [facility] 10Result Comment: [11/26/2016] [facility] 11Result Comment: [11/26/2016] [facility] 12Result Comment: [11/26/2016] [facility] 13Result Comment: [11/26/2016] [facility] 14Result Comment: [11/26/2016] [facility] 15Result Comment: [11/26/2016] [facility] 16Result Comment: [11/26/2016] [facility] 17Result Comment: [11/26/2016] [facility] 18Result Comment: [11/26/2016] [facility] 19Result Comment: [11/26/2016] [facility] 20Result Comment: [11/26/2016] [facility] 21Result Comment: [11/26/2016] [facility] 22Result Comment: [11/26/2016] [facility] 23Result Comment: [11/26/2016] [facility] 24Result Comment: [11/26/2016] [facility] 25Result Comment: [11/26/2016] [facility] 26Result Comment: [11/26/2016] [facility] 27Result Comment: [11/26/2016] [facility] 28Result Comment: [11/26/2016] [facility] 29Result Comment: [11/26/2016] [facility] 30Result Comment: [11/26/2016] [facility] 31Result Comment: [11/26/2016] [facility] 32Result Comment: [11/26/2016] [facility] 33Result Comment: [11/26/2016] [facility] 34Result Comment: [11/26/2016] [facility] 35Result Comment: [11/26/2016] [facility] Medications cholecalciferol 50 mcg (2000 intl [...] Effective Dates Health Status Clinical Service Informant Essential hypertension Discharge Diagnosis 10/29/22 Mitral valve prolapse Discharge Diagnosis 10/29/22 Palpitations Discharge Diagnosis 10/29/22 Social History Social History Type Response Smoking Status Never smoker entered on: 10/24/17 Sex Cardiology Outpatient Note * Eusebio MOON, Robert Kumar: PERFORM, MODIFY Event Display: Cardiology Note Office Authored Date: [id number] Patient: ??BONIFACIO MILLER ? Age:??27 Years?Sex:??Female?:??1995?? 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 Apparently the patient had a seizure about two years ago and witnessed tohave a grand mal seizure while in the car and placed on anti-seizure medications.Patient continued to have intermittent episodes of presumed syncope that occurred once every several months. ??Furtherneurologic work-up was somewhat discouraging that it was related to seizures. ??It was felt that perhaps was related to blood pressure phenomena. The patient has had longstanding arterial hypertension. ??She is followed by Dr. Gilman of nephrology.?30 loop recorder did not show any evidence for tachycardia. ??She did have a repeat echocardiogram recently which showed just trace to mild mitral regurgitation. ??She did get the fatty for poor windows and her LV function is normal. At last visit patient was getting apparently infrequent palpitations but no acute intervention or testing warranted. ?? Last ECHO 09/2021 Demonstrated Summary ??Due to suboptimal visual quality, Lumason contrast was used to enhance this ??study. ??Normal left ventricular size and function with ejection fraction of 60-65%. ??No focal wall motion abnormalities. ??The right ventricle was not well visualized. ??There is trace to mild mitral regurgitation with an eccentric, posteriorly ??directed jet. ??The pulmonary artery systolic pressure estimation is within normal limits. ?Comparison ??Comparison is made to the study of November 01, 2017. ??There is no significant change. ? Since then patient presents today via telehealth with her mother. Per patients mother patient denies any acute related complaints with her heart. Patient denies any SOB, CP, palpitations, AMA, PND, or Orthopnea. Patient recently evaluated in the ED for generalized body discomfort and CT abdomen was unremarkable and apparently according the mother an MRI is pending. Also patient has pending urology follow up as well for her urinary symptoms. Patient states she luna snot had to take her Lasix any time recently and no longer gets AMA. Patient is also happy to state her palpitations has resolvedcompletely at this time. Patient also had an ED admission back in June of 2022 for dizziness which was thought to be related to dehydration and hypotension and was subsequently taken off Lisinopril. Review of Systems CONSTITUTIONAL:?No weight loss, fever, chills, weakness or fatigue. CARDIOVASCULAR:?No chest pain, chest pressure or chest discomfort. No palpitations or edema. RESPIRATORY:?No shortness of breath, cough or sputum. GASTROINTESTINAL:?No anorexia, nausea, vomiting or diarrhea. No abdominal pain or blood. GENITOURINARY:??+Dysuria, no??frequency, or urgency. NEUROLOGICAL:?No headache, dizziness, syncope, paralysis, ataxia, numbness or tingling in the extremities. MUSCKULOSKELETAL: Generalized body pain Physical Exam Vitals & Measurements Weight lb/oz: 155 lb 14 oz Deferred due to telehealth Assessment/Plan 1.??Essential hypertension Normotensive at home per patients records Continue Coreg PRN, however has not needed recently Had hypotensive episode with Lisinopril and was discontinued, follows MD Gilman as well 2.??Mitral valve prolapse ECHO without any acute changes, next 2024 per MD Womack No acute symptoms at this time Follow up with any worsening symptoms 3.??Palpitations Resolved at this time per patient Follow up annually with MD Womack Total Time Spent I have??spent 10-15??minutes via??telehealth Medical Decision Making MODERATE - chronic illness w/ exac, progression, or AE of Tx, 2+ stable chronic illnesses, 1 new prob w/ ? 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 Developmental delay Dysmorphic features EE (eosinophilic esophagitis) Essential hypertension Exposure to COVID-19 virus Genetic disorder Hypothyroidism Hypothyroidism LLQ abdominal pain Membranous glomerulonephritis Migraine Mitral valve anterior leaflet prolapse Mitral valve prolapse NAFL (nonalcoholic fatty liver) Nephrotic syndrome Noncompliance with medications Obese class I Obstructive sleep apnea Omental infarction Orthostatic proteinuria Osteoporosis Postablative hypothyroidism Proteinuria Syringomyelia and syringobulbia Vitamin D deficiency Historical Hyperthyroidism Localization-related epilepsy Procedure/Surgical History Upper GI endoscopy: 08/15/17 Laparoscopic cholecystectomy and liver biopsy: 03/23/14 Thyroid gland ablation - irradiation Chiari malformation 2000 [facility] Multiple dental surgeries Home Medications cholecalciferol 50 mcg (2000 intl units) oral tablet, chewable, 2 tablets, By Mouth, Daily, 7 refills dextromethorphan-guaifenesin 10 mg-100 mg/5 mL oral liquid, 10 mL, By Mouth, Every 4 hours, PRN,?Not taking Flovent 110 mcg Inhaler HFA, 1 puffs, Inhalation, 2 times a day, PRN, throat tightness furosemide 20 mg oral tablet, 20 mg= 1 tablet, By Mouth, Daily, PRN, for leg swelling,?Not taking levothyroxine 0.112 mg oral tablet, 224 mcg= 2 tablet, By Mouth, Daily, 3 refills, Dose increased due to significant fluctuation in thyroid levels. Please repeat labs in 2 weeks. lidocaine 4% topical film, 1 patch, Topically, 2 times a day Lorazepam, PRN Nurtec ODT 75 mg oral tablet, disintegrating, PLACE ONE TABLET BY MOUTH EVERY OTHER DAY pantoprazole 40 mg oral delayed release tablet, 40 mg= 1 tablet, By Mouth, Daily Lab Results Cardiology Labs WBC: 7.9 k/mm3 (10/18/22) RBC: 4.53 m/mm3 (10/18/22) Hgb: 14 Gm/dL (10/18/22) Hct: 40.1 % (10/18/22) MCV: 88.5 femtoliters (10/18/22) MCH: 30.9 pg (10/18/22) MCHC: 34.9 g/dL (10/18/22) Platelet Count: 257 k/mm3 (10/18/22) RDW-SD: 46.6 femtoliters (10/18/22) Nucleated RBC (Automated): 0 #/100 WBC'S (10/18/22) Abs. Neut: 4.2 k/mm3 (10/18/22) Abs. Lymph: 2.3 k/mm3 (10/18/22) Abs. [place]: 0.4 k/mm3 (10/18/22) Abs. Eo:??0.8 k/mm3??High (10/18/22) Abs. Baso: 0.1 k/mm3 (10/18/22) Neut %: 53.2 % (10/18/22) [place] %: 5.6 % (10/18/22) Eos %:??10.4 %??High (10/18/22) Baso %: 1.3 % (10/18/22) Imm Gran: 0.5 % (10/18/22) Abs. Imm Gran: 0 k/mm3 (10/18/22) Sodium: 139 mmol/L (10/18/22) Potassium: 4.3 mmol/L (10/18/22) Chloride: 100 mmol/L (10/18/22) Bicarbonate Level: 26 mmol/L (10/18/22) Glucose Level:??106 mg/dL??High (10/18/22) BUN: 7 mg/dL (10/18/22) Creatinine-Blood: 0.9 mg/dL (10/18/22) Calcium: 9.3 mg/dL (10/18/22) Protein, Total: 7.1 Gm/dL (10/18/22) Albumin: 4.2 Gm/dL (10/18/22) Alkaline Phosphatase: 53 units/L (10/18/22) AST (SGOT): 28 units/L (10/18/22) ALT (SGPT): 18 units/L (10/18/22) Bilirubin, Total: 1.1 mg/dL (10/18/22) Troponin T Quant: <0.01 (06/19/22) Nt-Probnp: 61 pg/mL (06/19/22) TSH:??87.8 uIU/mL??High (10/16/22) Free T4:??<0.10??Low (10/16/22) Diagnostic Impression ECG ECG 12-Lead ?? 08:46:08 Please click on pdf link to open report ?? Signed By: Willian Cortez MD ?? ECG 12-Lead ?? 08:46:08 Ventricular Rate: 98 BPM Atrial Rate: 98 BPM P-R Interval: 136 ms QRS Duration: 90 ms Q-T Interval: 344 ms QTC Calculation(Bazett): 439 ms P Alliance: 37 degrees R Alliance: 45 degrees T Alliance: 22 degrees Normal sinus rhythm Normal ECG When compared with ECG of 23-SEP-2020 13:37, No significant change was found Confirmed by NETTE CORTEZ MD ([id number]) on 06/19/2022 7:52:09 PM ?? [place]: NETTE CORTEZ MD ?? Signed By: Willian Cortez MD Echo Echocardiogram - Complete ?? 15:21:01 Summary Due to suboptimal visual quality, Lumason contrast was used to enhance this study. Normal left ventricular size and function with ejection fraction of 60-65%. No focal wall motion abnormalities. The right ventricle was not well visualized. There is trace to mild mitral regurgitation with an eccentric, posteriorly directed jet. The pulmonary artery systolic pressure estimation is within normal limits. ?? Comparison Comparison is made to the study of November 01, 2017. There is no significant change. ?? Signature ?? Signed By: Willian Cortez MD Patient Care team information Care Team Personnel Name: Margaux Vivas RN Position: [facility] RN Member Role: Primary Care Nurse Name: Live Leyva MD Position: [facility] Physician -Physician Practices Member Role: Lifetime Consulting Physician Name: Jeanmarie Lopez MD Position: [facility] Renal MD Member Role: Lifetime Consulting Physician Address: Address: [address], [address] [facility] [place] [address]- [place] Name: Lashonda Clifford Position: [facility] Outreach Member Role: Lifetime Consulting Physician Name: Tiera Wadsworth RN Position: [facility] RN Member Role: Primary Care Nurse Name: Isaiah Angeles MD Position: [facility] Primary Care Physician Member Role: PCP Address: Address: [address] [place] [address]- [place] Name: Annalise Lara RN Position: [facility] RN Member Role: Primary Care Nurse Name: Mark Wilkes MD Position: [facility] Renal MD Member Role: Lifetime Consulting Physician Address: Address: [address] [facility] [place] [address]- Name: Bibiana Treviño RN Position: [facility] RN Member Role: Primary Care Nurse Care Team Related Persons Name: AKASHMIRA CARTY Address: [address] [phone] Name: MIRA MILLER Address: [address] [phone] Name: MIRA MILLER Address: [address] [phone] Name: MIRA MILLER Address: [address] [phone] Name: MIRA MILLER Address: [address] [phone] Name: MIRA MILLER Address: [address] [phone] Name: MIRA MILLER Address: [address] [phone] Name: PRATEEK MILLER Address: [address] [address] Name: BELEN MILLER Address: [address] [address] Name: BELEN MILLER Address: [address] [address]
--- OUTSIDE RECORDS SUMMARY | 2024-05-20 07:34 | XMS_ITS | Continuity of Care Document ---
Author Organization [facility] Address [address] [place] [address]- Care Team Providers Care Motor And Generator Assembler Name Role Phone Karthik HENLEY, Isaiah Douglas Primary Care Physician [facility] Date[facility]s): 03/28/20 - 04/27/20 [facility] [place] Adult [address] [place] [address]- [facility] Allergies, Adverse Reactions, Alerts Substance [...] 1Result Comment: [facility]-[id number] 2Location History: [facility] [place] 3Result Comment: [11/26/2016] [facility] 4Result Comment: [11/26/2016] [facility] 5Result Comment: [11/26/2016] [facility] 6Result Comment: [11/26/2016] [facility] 7Result Comment: [11/26/2016] [facility] 8Result Comment: [11/26/2016] [facility] 9Result Comment: [11/26/2016] [facility] 10Result Comment: [11/26/2016] [facility] 11Result Comment: [11/26/2016] [facility] 12Result Comment: [11/26/2016] [facility] 13Result Comment: [11/26/2016] [facility] 14Result Comment: [11/26/2016] [facility] 15Result Comment: [11/26/2016] [facility] 16Result Comment: [11/26/2016] [facility] 17Result Comment: [11/26/2016] [facility] 18Result Comment: [11/26/2016] [facility] 19Result Comment: [11/26/2016] [facility] 20Result Comment: [11/26/2016] [facility] 21Result Comment: [11/26/2016] [facility] 22Result Comment: [11/26/2016] [facility] 23Result Comment: [11/26/2016] [facility] 24Result Comment: [11/26/2016] [facility] 25Result Comment: [11/26/2016] [facility] 26Result Comment: [11/26/2016] [facility] 27Result Comment: [11/26/2016] [facility] 28Result Comment: [11/26/2016] [facility] 29Result Comment: [11/26/2016] [facility] 30Result Comment: [11/26/2016] [facility] 31Result Comment: [11/26/2016] [facility] 32Result Comment: [11/26/2016] [facility] 33Result Comment: [11/26/2016] [facility] Medications Flovent HFA 110 mcg/inh inhalation [...]
--- OUTSIDE RECORDS SUMMARY | 2024-05-20 07:34 | XMS_ITS | Continuity of Care Document ---
Author Organization [facility] Address [address] [place] [address]- Care Team Providers Care Necktie Stitcher Name Role Phone Karthik HENLEY, Isaiah Douglas Primary Care Physician [place] [facility] [place] - 08/29/22 [facility] Adult [address] [place] [address]- Allergies, Adverse Reactions, Alerts Substance Reaction Severity Status codeine 1 Surgical adhesive ta pe itching Active Adhesive Bandage 2 Rash Active riTUXimab 3 Severe Active 1hives 2surgical tape allergy as per family 3developed anaphylaxis with throat closure sensation and facial swelling needed brief epinephrine drip Immunizations Given and Recorded Vaccine Date Status Refusal Reason tetanus-diphtheria toxoids (Td) 1 08/15/22 Given [id number] bivalent booster vax 07/05/22 Recorded influenza virus [...] Given Parent Or Guardian Refuses 1Result Comment: [id number] 2Result Comment: [facility] [place] 3Result Comment: [facility]-[id number] 4Location History: [facility] [place] 5Result Comment: [11/26/2016] [facility] 6Result Comment: [11/26/2016] [facility] 7Result Comment: [11/26/2016] [facility] 8Result Comment: [11/26/2016] [facility] 9Result Comment: [11/26/2016] [facility] 10Result Comment: [11/26/2016] [facility] 11Result Comment: [11/26/2016] [facility] 12Result Comment: [11/26/2016] [facility] 13Result Comment: [11/26/2016] [facility] 14Result Comment: [11/26/2016] [facility] 15Result Comment: [11/26/2016] [facility] 16Result Comment: [11/26/2016] [facility] 17Result Comment: [11/26/2016] [facility] 18Result Comment: [11/26/2016] [facility] 19Result Comment: [11/26/2016] [facility] 20Result Comment: [11/26/2016] [facility] 21Result Comment: [11/26/2016] [facility] 22Result Comment: [11/26/2016] [facility] 23Result Comment: [11/26/2016] [facility] 24Result Comment: [11/26/2016] [facility] 25Result Comment: [11/26/2016] [facility] 26Result Comment: [11/26/2016] [facility] 27Result Comment: [11/26/2016] [facility] 28Result Comment: [11/26/2016] [facility] 29Result Comment: [11/26/2016] [facility] 30Result Comment: [11/26/2016] [facility] 31Result Comment: [11/26/2016] [facility] 32Result Comment: [11/26/2016] [facility] 33Result Comment: [11/26/2016] [facility] 34Result Comment: [11/26/2016] [facility] 35Result Comment: [11/26/2016] [facility] Medications dextromethorphan-guaifenesin 10 mg-100 mg/5 mL [...] Personnel Name: Margaux Vivas RN Position: [facility] RN Member Role: Primary Care Nurse Name: Live Leyva MD Position: [facility] Physician -Physician Practices Member Role: Lifetime Consulting Physician Name: Jeanmarie Lopez MD Position: [facility] Renal MD Member Role: Lifetime Consulting Physician Address: Address: [address] [place] [address], [address] [facility] [address] Name: Lashonda Clifford Position: [facility] Outreach Member Role: Lifetime Consulting Physician Name: Tiera Wadsworth RN Position: [facility] RN Member Role: Primary Care Nurse Name: Isaiah Angeles MD Position: [facility] Primary Care Physician Member Role: PCP Address: Address: [address] [place] [address]- [place] Name: Annalise Lara RN Position: [facility] RN Member Role: Primary Care Nurse Name: Mark Wilkes MD Position: [facility] Renal MD Member Role: Lifetime Consulting Physician Address: Address: [address] [place] [address] [facility] [place], [place] [address] Name: Bibiana Treviño RN Position: [facility] RN Member Role: Primary Care Nurse Care Team Related Persons Name: MIRA MILLER Address: [place] [phone] Name: MIRA MILLER Address: [place] [phone] Name: MIRA MILLER Address: [place] [phone] Name: ANGELA MIRA Address: [address] [phone] Name: ANGELA MIRA Address: [place] [phone] Name: ANGELA MIRA Address: [address] [phone] Name: ANGELACLAUDETTEE Address: [place] [phone] Name: PRATEEK MILLER Address: [address] [address] Name: BELEN MILLER Address: [address] [address] Name: BELEN MILLER Address: [address] [address]
--- OUTSIDE RECORDS SUMMARY | 2024-05-20 07:34 | XMS_ITS | Continuity of Care Document ---
Author Organization [facility] Address [address] [place] [address]- Care Team Providers Care Doll Maker Name Role Phone Karthik HENLEY, Isaiah Douglas Primary Care Physician [phone] Encounter [facility] Date(s): 12/26/21 - 01/25/22 [facility] [address] [place] [address]- Allergies, Adverse Reactions, Alerts Substance Reaction Severity [...] Refuses 1Result Comment: [facility]-[id number] 2Location History: [facility] [place] 3Result Comment: [11/26/2016] [facility] 4Result Comment: [11/26/2016] [facility] 5Result Comment: [11/26/2016] [facility] 6Result Comment: [11/26/2016] [facility] 7Result Comment: [11/26/2016] [facility] 8Result Comment: [11/26/2016] [facility] 9Result Comment: [11/26/2016] [facility] 10Result Comment: [11/26/2016] [facility] 11Result Comment: [11/26/2016] [facility] 12Result Comment: [11/26/2016] [facility] 13Result Comment: [11/26/2016] [facility] 14Result Comment: [11/26/2016] [facility] 15Result Comment: [11/26/2016] [facility] 16Result Comment: [11/26/2016] [facility] 17Result Comment: [11/26/2016] [facility] 18Result Comment: [11/26/2016] [facility] 19Result Comment: [11/26/2016] [facility] 20Result Comment: [11/26/2016] [facility] 21Result Comment: [11/26/2016] [facility] 22Result Comment: [11/26/2016] [facility] 23Result Comment: [11/26/2016] [facility] 24Result Comment: [11/26/2016] [facility] 25Result Comment: [11/26/2016] [facility] 26Result Comment: [11/26/2016] [facility] 27Result Comment: [11/26/2016] [facility] 28Result Comment: [11/26/2016] [facility] 29Result Comment: [11/26/2016] [facility] 30Result Comment: [11/26/2016] [facility] 31Result Comment: [11/26/2016] [facility] 32Result Comment: [11/26/2016] [facility] 33Result Comment: [11/26/2016] [facility] Medications calcium (as carbonate) 500 mg [...]
--- OUTSIDE RECORDS SUMMARY | 2024-05-20 07:34 | XMS_ITS | Continuity of Care Document ---
Author Organization [facility] Address [address] [place] [address]- Care Team Providers Care Agriculture Mechanic Name Role Phone Karthik HENLEY, Isaiah Douglas Primary Care Physician En[place] [facility] [place](s): 10/10/22 - 11/09/22 [facility] [address] [place] [id number] Allergies, Adverse Reactions, [...] Reason tetanus-diphtheria toxoids (Td) 1 08/15/22 Given [id number] bivalent booster vax 07/05/22 Recorded influenza virus [...] Given Parent Or Guardian Refuses 1Result Comment: [id number] 2Result Comment: [facility] [place] 3Result Comment: [facility]-[id number] 4Location History: [facility] [place] 5Result Comment: [11/26/2016] [facility] 6Result Comment: [11/26/2016] [facility] 7Result Comment: [11/26/2016] [facility] 8Result Comment: [11/26/2016] [facility] 9Result Comment: [11/26/2016] [facility] 10Result Comment: [11/26/2016] [facility] 11Result Comment: [11/26/2016] [facility] 12Result Comment: [11/26/2016] [facility] 13Result Comment: [11/26/2016] [facility] 14Result Comment: [11/26/2016] [facility] 15Result Comment: [11/26/2016] [facility] 16Result Comment: [11/26/2016] [facility] 17Result Comment: [11/26/2016] [facility] 18Result Comment: [11/26/2016] [facility] 19Result Comment: [11/26/2016] [facility] 20Result Comment: [11/26/2016] [facility] 21Result Comment: [11/26/2016] [facility] 22Result Comment: [11/26/2016] [facility] 23Result Comment: [11/26/2016] [facility] 24Result Comment: [11/26/2016] [facility] 25Result Comment: [11/26/2016] [facility] 26Result Comment: [11/26/2016] [facility] 27Result Comment: [11/26/2016] [facility] 28Result Comment: [11/26/2016] [facility] 29Result Comment: [11/26/2016] [facility] 30Result Comment: [11/26/2016] [facility] 31Result Comment: [11/26/2016] [facility] 32Result Comment: [11/26/2016] [facility] 33Result Comment: [11/26/2016] [facility] 34Result Comment: [11/26/2016] [facility] 35Result Comment: [11/26/2016] [facility] Medications cholecalciferol 50 mcg (2000 intl [...] Team Personnel Name: Margaux Vivas RN Position: [facility] RN Member Role: Primary Care Nurse Name: Live Leyva MD Position: [facility] Physician -Physician Practices Member Role: Lifetime Consulting Physician Name: Jeanmarie Lopez MD Position: [facility] Renal MD Member Role: Lifetime Consulting Physician Address: Address: [address] [place] [address], [address] [facility] [place] [address]- [place] Name: Lashonda Clifford Position: [facility] Outreach Member Role: Lifetime Consulting Physician Name: Tiera Wadsworth RN Position: [facility] RN Member Role: Primary Care Nurse Name: Isaiah Angeles MD Position: [facility] Primary Care Physician Member Role: PCP Address: Address: [address] [place] [address]- [place] Name: Annalise Lara RN Position: [facility] RN Member Role: Primary Care Nurse Name: Mark Wilkes MD Position: [facility] Renal MD Member Role: Lifetime Consulting Physician Address: Address: [address] [facility] [place] [address]- [place] Name: Bibiana Treviño RN Position: [facility] RN Member Role: Primary Care Nurse Care Team Related Persons Name: MIRA MILLER Address: [address] [id number] Name: MIRA MILLER Address: [address] [id number] Name: MIRA MILLER Address: [address] [phone] Name: MIRA MILLER Address: [address] [id number] Name: MIRA MILLER Address: [address] [phone] Name: MIRA MILLER Address: [address] [id number] Name: MIRA MILLER Address: [address] [id number] Name: PRATEEK MILLER Address: [address] [address] Name: BELEN MILLER Address: [address] [address] Name: BELEN MILLER Address: [address] [address]
--- OUTSIDE RECORDS SUMMARY | 2024-05-20 07:34 | XMS_ITS | Continuity of Care Document ---
Author Organization [facility] Ethan lt Address [address] [place] [address]- Care Team Providers Care Replenishment Merchandising Associate Name Role Phone Karthik HENLEY, Isaiah Douglas Primary Care Physician [place] [facility] [place]21 [facility] Adult [address] [place] [address]- Allergies, Adverse Reactions, Alerts Substance Reaction Severity [...] 1Result Comment: [facility]-[id number] 2Location History: [facility] [place] 3Result Comment: [11/26/2016] [facility] 4Result Comment: [11/26/2016] [facility] 5Result Comment: [11/26/2016] [facility] 6Result Comment: [11/26/2016] [facility] 7Result Comment: [11/26/2016] [facility] 8Result Comment: [11/26/2016] [facility] 9Result Comment: [11/26/2016] [facility] 10Result Comment: [11/26/2016] [facility] 11Result Comment: [11/26/2016] [facility] 12Result Comment: [11/26/2016] [facility] 13Result Comment: [11/26/2016] [facility] 14Result Comment: [11/26/2016] [facility] 15Result Comment: [11/26/2016] [facility] 16Result Comment: [11/26/2016] [facility] 17Result Comment: [11/26/2016] [facility] 18Result Comment: [11/26/2016] [facility] 19Result Comment: [11/26/2016] [facility] 20Result Comment: [11/26/2016] [facility] 21Result Comment: [11/26/2016] [facility] 22Result Comment: [11/26/2016] [facility] 23Result Comment: [11/26/2016] [facility] 24Result Comment: [11/26/2016] [facility] 25Result Comment: [11/26/2016] [facility] 26Result Comment: [11/26/2016] [facility] 27Result Comment: [11/26/2016] [facility] 28Result Comment: [11/26/2016] [facility] 29Result Comment: [11/26/2016] [facility] 30Result Comment: [11/26/2016] [facility] 31Result Comment: [11/26/2016] [facility] 32Result Comment: [11/26/2016] [facility] 33Result Comment: [11/26/2016] [facility] Medications lidocaine 4% topical film 1 [...]
--- OUTSIDE RECORDS SUMMARY | 2024-05-20 07:34 | XMS_ITS | Continuity of Care Document ---
Author Organization [facility] Address [address] [place] [address]- Care Team Providers Care Interior Design Teacher Name Role Phone Karthik HENLEY, Isaiah R Primary Care Physician Encounter [facility] Date(s): 08/20/19 - 08/21/[address] [address]- [facility] Discharge Disposition: A-D/C Home Attending Physician: Alex Kevin MD Admitting Physician: All HENLEY, Davey P Referring Physician: Not on Staff, Referring MD [...] 1Result Comment: [facility]-[id number] 2Location History: [facility] [place] 3Result Comment: [11/26/2016] [facility] 4Result Comment: [11/26/2016] [facility] 5Result Comment: [11/26/2016] [facility] 6Result Comment: [11/26/2016] [facility] 7Result Comment: [11/26/2016] [facility] 8Result Comment: [11/26/2016] [facility] 9Result Comment: [11/26/2016] [facility] 10Result Comment: [11/26/2016] [facility] 11Result Comment: [11/26/2016] [facility] 12Result Comment: [11/26/2016] [facility] 13Result Comment: [11/26/2016] [facility] 14Result Comment: [11/26/2016] [facility] 15Result Comment: [11/26/2016] [facility] 16Result Comment: [11/26/2016] [facility] 17Result Comment: [11/26/2016] [facility] 18Result Comment: [11/26/2016] [facility] 19Result Comment: [11/26/2016] [facility] 20Result Comment: [11/26/2016] [facility] 21Result Comment: [11/26/2016] [facility] 22Result Comment: [11/26/2016] [facility] 23Result Comment: [11/26/2016] [facility] 24Result Comment: [11/26/2016] [facility] 25Result Comment: [11/26/2016] [facility] 26Result Comment: [11/26/2016] [facility] 27Result Comment: [11/26/2016] [facility] 28Result Comment: [11/26/2016] [facility] 29Result Comment: [11/26/2016] [facility] 30Result Comment: [11/26/2016] [facility] 31Result Comment: [11/26/2016] [facility] 32Result Comment: [11/26/2016] [facility] 33Result Comment: [11/26/2016] [facility] Medications ferrous sulfate 325 mg oral [...] oldest [Reference Range]: 1 2 3 Height 152.4 cm (08/21/19 12:22 PM) 152.4 cm (08/21/19 7:54 AM) 152.4 cm (08/21/19 4:22 AM) Weight 64 kg (08/20/19 3:16 PM) Oxygen Saturation [94-100 %] 98 % (08/21/19 12:22 PM) 100 % (08/21/19 7:54 AM) 95 % (08/21/19 4:22 AM) Pulse Rate [55-90 bpm] 106 bpm *H* (08/21/19 12:22 PM) 76 bpm (08/21/19 7:54 AM) 89 bpm (08/21/19 4:22 AM) Body Mass Index [18.5-24.99] 27.56 *H* (08/20/19 3:16 PM) Blood Pressure [90-138/55-84 mm Hg] 130/96mm Hg (08/21/19 12:22 PM) 124/83mm Hg (08/21/19 8:49 AM) 117/67mm Hg (08/21/19 7:54 AM) Respiratory Rate [16-30 br/min] 18 br/min (08/21/19 12:22 PM) 18 br/min (08/21/19 7:54 AM) 18 br/min (08/21/19 4:22 AM) Temperature [96.8-100.4 DegF] 98.5 DegF (08/21/19 12:22 PM) 97.7 DegF (08/21/19 7:54 AM) 98.1 DegF (08/21/19 4:22 AM) Mode of Delivery (Oxygen) Room air (08/21/19 12:22 PM) Room air (08/21/19 7:54 AM) Room air (08/21/19 4:22 AM) Blood pressure sites Arm, left (08/21/19 12:22 PM) Arm, left (08/21/19 7:54 AM) Arm, right (08/21/19 4:22 AM) Temperature Route Oral (08/21/19 12:22 PM) Oral (08/21/19 7:54 AM) Oral (08/21/19 4:22 AM) Dry Weight 64 kg (08/20/19 3:16 PM) Social History Social History Type Response Smoking Status Never smoker entered on: 10/24/17 Sex
--- OUTSIDE RECORDS SUMMARY | 2024-05-20 07:34 | XMS_ITS | Continuity of Care Document ---
Author Organization [facility] Ethan lt Address [address] [place] [address]- Care Team Providers Care Mammographer Name Role Phone Karthik HENLEY, Isaiah Douglas Primary Care Physician [phone] Encounter [facility] Date(s): 02/24/21 - 03/26/21 [facility] Adult [address] [place] [address]- Allergies, Adverse Reactions, Alerts Substance Reaction Severity [...] Refuses 1Result Comment: [facility]-[id number] 2[facility] 3Result Comment: [11/26/2016] [facility] 4Result Comment: [11/26/2016] [facility] 5Result Comment: [11/26/2016] [facility] 6Result Comment: [11/26/2016] [facility] 7Result Comment: [11/26/2016] [facility] 8Result Comment: [11/26/2016] [facility] 9Result Comment: [11/26/2016] [facility] 10Result Comment: [11/26/2016] [facility] 11Result Comment: [11/26/2016] [facility] 12Result Comment: [11/26/2016] [facility] 13Result Comment: [11/26/2016] [facility] 14Result Comment: [11/26/2016] [facility] 15Result Comment: [11/26/2016] [facility] 16Result Comment: [11/26/2016] [facility] 17Result Comment: [11/26/2016] [facility] 18Result Comment: [11/26/2016] [facility] 19Result Comment: [11/26/2016] [facility] 20Result Comment: [11/26/2016] [facility] 21Result Comment: [11/26/2016] [facility] 22Result Comment: [11/26/2016] [facility] 23Result Comment: [11/26/2016] [facility] 24Result Comment: [11/26/2016] [facility] 25Result Comment: [11/26/2016] [facility] 26Result Comment: [11/26/2016] [facility] 27Result Comment: [11/26/2016] [facility] 28Result Comment: [11/26/2016] [facility] 29Result Comment: [11/26/2016] [facility] 30Result Comment: [11/26/2016] [facility] 31Result Comment: [11/26/2016] [facility] 32Result Comment: [11/26/2016] [facility] 33Result Comment: [11/26/2016] [facility] Medications levothyroxine 125 mcg (0.125 mg) [...] opioid drug. Start Date: 02/03/21 Status: Ordered SUMAtriptan 25 mg oral tablet 1 tablet = 25 mg, By Mouth, Daily, PRN for migraine headache, may repeat dose after 2 hours up to amaximum of 2, # 9 tablet, 0 Refills, Acute 03/27/21 13:45:00 EDT, 02/24/21 13:44:00 EDT, Tablet, [facility], Partial fill upon patient r... Start Date: 02/24/21 Stop Date: 03/27/21 Status: Ordered Problem List Condition Effective Dates [...]
--- OUTSIDE RECORDS SUMMARY | 2024-05-20 07:34 | XMS_ITS | Continuity of Care Document ---
Author Organization [facility] Ethan lt Address [address] [place] [address]- Care Team Providers Care Technical Instructor Course Developer Name Role Phone Karthik HENLEY, Isaiah Douglas Primary Care Physician Encounter [facility] Date(s): 08/15/23 - 09/14/23 [facility] Adult [address] [place] [address]- Allergies, Adverse Reactions, Alerts Substance Reaction Severity [...] corded tetanus-diphtheria toxoids (Td) 10 08/15/22 Given [id number] bivalent booster vax 07/05/22 Recorded SARS-CoV-2 (COVID-19) [...] Comment: [facility] [place] 2Result Comment: [facility]-[id number] 3Location History: [facility] [place] 4Result Comment: [11/26/2016] [facility] 5Result Comment: [11/26/2016] [facility] 6Result Comment: [11/26/2016] [facility] 7Result Comment: [11/26/2016] [facility] 8Result Comment: [11/26/2016] [facility] 9Result Comment: [11/26/2016] [facility] 10Result Comment: [id number] 11Result Comment: [11/26/2016] [facility] 12Result Comment: [11/26/2016] [facility] 13Result Comment: [11/26/2016] [facility] 14Result Comment: [11/26/2016] [facility] 15Result Comment: [11/26/2016] [facility] 16Result Comment: [11/26/2016] [facility] 17Result Comment: [11/26/2016] [facility] 18Result Comment: [11/26/2016] [facility] 19Result Comment: [11/26/2016] [facility] 20Result Comment: [11/26/2016] [facility] 21Result Comment: [11/26/2016] [facility] 22Result Comment: [11/26/2016] [facility] 23Result Comment: [11/26/2016] [facility] 24Result Comment: [11/26/2016] [facility] 25Result Comment: [11/26/2016] [facility] 26Result Comment: [11/26/2016] [facility] 27Result Comment: [11/26/2016] [facility] 28Result Comment: [11/26/2016] [facility] 29Result Comment: [11/26/2016] [facility] 30Result Comment: [11/26/2016] [facility] 31Result Comment: [11/26/2016] [facility] 32Result Comment: [11/26/2016] [facility] 33Result Comment: [11/26/2016] [facility] 34Result Comment: [11/26/2016] [facility] 35Result Comment: [11/26/2016] [facility] Medications [...] Care team information Care Team Personnel Name: Lvie Leyva MD Position: [facility] Physician -Physician Practices Member Role: Lifetime Consulting Physician Name: Jeanmarie Lopez MD Position: [facility] Renal MD Member Role: Lifetime Consulting Physician Address: Address: [address] [place] [address] [address] [place] [address]- Name: Lashonda Clifford Position: [facility] Outreach Member Role: Lifetime Consulting Physician Name: Tiera Wadsworth RN Position: [facility] RN Member Role: Primary Care Nurse Name: Isaiah Angeles MD Position: [facility] Physician - Primary Care Member Role: PCP Address: Address: [address] [place] [address]- [place] Name: Annalise Lara RN Position: S RN Member Role: Primary Care Nurse Name: Mark Wilkes MD Position: [facility] Renal MD Member Role: Lifetime Consulting Physician Address: Address: [address] [place] [address] [facility] [place] [address]- Name: Bibiana Treviño RN Position: [facility] RN Member Role: Primary Care Nurse Care Team Related Persons Name: MIRA MILLER Address: home [address] [id number] Name: MIRA MILLER Address: [place] Address: home [address] [place] [address] Name: PRATEEK MILLER Address: home [address] [place] [address] Name: BELEN MILLER Address: home [address] [place] [address] Name: BELEN MILLER Address: home [address] [place] [address]
--- OUTSIDE RECORDS SUMMARY | 2024-05-20 07:34 | XMS_ITS | Continuity of Care Document ---
Author Organization [facility] Ethan lt Address [address] [place] [address]- Care Team Providers Care Storage Worker Name Role Phone Isaiah Angeles MD Primary Care Physician Encounter [facility] Date(s): 08/15/22 - 08/22/22 [facility] Adult [address] [place] [address]- Attending Physician: Isaiah Angeles MD Allergies, Adverse [...] Reason tetanus-diphtheria toxoids (Td) 1 08/15/22 Given [id number] bivalent booster vax 07/05/22 Recorded influenza virus [...] Given Parent Or Guardian Refuses 1Result Comment: [id number] 2Result Comment: [facility] [place] 3Result Comment: [facility]-[id number] 4Location History: [facility] [place] 5Result Comment: [11/26/2016] [facility] 6Result Comment: [11/26/2016] [facility] 7Result Comment: [11/26/2016] [facility] 8Result Comment: [11/26/2016] [facility] 9Result Comment: [11/26/2016] [facility] 10Result Comment: [11/26/2016] [facility] 11Result Comment: [11/26/2016] [facility] 12Result Comment: [11/26/2016] [facility] 13Result Comment: [11/26/2016] [facility] 14Result Comment: [11/26/2016] [facility] 15Result Comment: [11/26/2016] [facility] 16Result Comment: [11/26/2016] [facility] 17Result Comment: [11/26/2016] [facility] 18Result Comment: [11/26/2016] [facility] 19Result Comment: [11/26/2016] [facility] 20Result Comment: [11/26/2016] [facility] 21Result Comment: [11/26/2016] [facility] 22Result Comment: [11/26/2016] [facility] 23Result Comment: [11/26/2016] [facility] 24Result Comment: [11/26/2016] [facility] 25Result Comment: [11/26/2016] [facility] 26Result Comment: [11/26/2016] [facility] 27Result Comment: [11/26/2016] [facility] 28Result Comment: [11/26/2016] [facility] 29Result Comment: [11/26/2016] [facility] 30Result Comment: [11/26/2016] [facility] 31Result Comment: [11/26/2016] [facility] 32Result Comment: [11/26/2016] [facility] 33Result Comment: [11/26/2016] [facility] 34Result Comment: [11/26/2016] [facility] 35Result Comment: [11/26/2016] [facility] Medications Flovent 110 mcg Inhaler HFA [...] oldest [Reference Range]: 1 Height 153 cm (08/15/22 3:31 PM) Weight 65.4 kg (08/15/22 3:31 PM) Oxygen Saturation [94-100 %] 98 % (08/15/22 3:31 PM) Pulse Rate [55-90 bpm] 84 bpm (08/15/22 3:31 PM) Body Mass Index [18.5-24.99 kg/m2] 27.94 kg/m2 *H* (08/15/22 3:31 PM) Blood Pressure [90-138/55-84 mm Hg] 111/ 76mm Hg (08/15/22 3:31 PM) Mode of Delivery (Oxygen) Room air (08/15/22 3:31 PM) Blood pressure sites Arm, left (08/15/22 3:31 PM) Weight Obtained Via Standing scale (08/15/22 3:31 PM) Social History Social History Type Response Smoking Status Never smoker entered on: 10/24/17 Sex Note * Romi Alan: PERFORM, SIGN, VERIFY Event Display: Patient Education/Instruction Authored Date: [id number] [facility] *BMP So Iain Riost Clinical Summary Name BONIFACIO MILLER Age 27 Years 1995 PCP Karthik HENLEY, [id number] Visit Date 08/15/2022 15:07:00 Additional Instructions: Scheduled Appointments?? Future Appointments ?No Future Appointments Scheduled Follow-Up Instructions ?? Diagnosis Medications: Please continue your medications until treatment is completed or stopped by your provider. Discuss any questions related to medications with your provider. Medications to Continue with No Changes These medications were not printed or sent to your pharmacy Cholecalciferol (Vitamin D3 50,000 intl units oral capsule) 1 capsule Oral every week for 60 Days. Refills: 0. Next Dose: Fluticasone (Flovent 110 mcg Inhaler HFA) 1 puff(s) Inhalation twice a day as needed Other. throat tightness. Next Dose: Furosemide (furosemide 20 mg oral tablet) 1 tab(s) Oral Daily as needed Other. for leg swelling. Next Dose: Levothyroxine (levothyroxine 150 mcg (0.15 mg) oral tablet) 6.5 pills weekly. Refills: 3. Next Dose: Lidocaine Topical (lidocaine 4% topical film) 1 patch(es) Topically twice a day. Next Dose: Lorazepam as needed as needed for anxiety. Next Dose: Pantoprazole (pantoprazole 40 mg oral delayed release tablet) 1 tab(s) Oral Daily. Next Dose: rimegepant (Nurtec ODT 75 mg oral tablet, disintegrating) PLACE ONE TABLET BY MOUTH EVERY OTHER DAY. Next Dose: No Longer Take the Following Medications Lisinopril (lisinopril 5 mg oral tablet) 1 tab(s) Oral Daily. Allergy Info:?? riTUXimab; Adhesive Bandage; codeine Medications Given This Visit Future Orders ?No future orders Vital Signs Height 153 cm Weight 65.4 kg BMI 27.94 kg/m2 Blood Pressure 111 mm Hg/76 mm Hg Temperature Pulse Rate 84 bpm Respiratory Rate 02 Sat Mode of Delivery 98 %/Room air You can now view a summary of your hospital visit from the comfort of your home through a free online portal called [email or web address]. [email or web address] is a website that allows you to securely view your medical information including discharge summary, medications and follow-up visits. ??You can alsosend a secure electronic message to your doctor???s office to request appointments, renew medications or just ask a question. You can enroll at [email or web address] or register during your next office visit. Disclaimer:?? The information provided is of a general nature and is intended to be used in conjunction with the recommendations and advice of your health care practitioner. ??Every effort has been made to ensure that the information provided is accurate and complete at the time it is provided to you however, as your needs change, or, as new ??information becomes available, different or additional instructions may be required. If you have questions, please consult with your primary care provider or pharmacist, as appropriate. ??This information is not intended to serve as substitution for assessment and evaluation by a qualified health care provider. If you do not have a primary care provider, you may find a [facility] provider by calling [facility] [employer] Link at [phone]. For information about the plan of care including goals and instructions for your diagnosis, please see the patient education orders section of this document. Patient Education Materials?? The content of this educational material or handout may have been modified, supplemented, or adapted from its original content and format to support your individualized medical care. Patient Care team information Care Team Personnel Name: Margaux Vivas RN Position: [facility] RN Member Role: Primary Care Nurse Name: Live Leyva MD Position: [facility] Physician -Physician Practices Member Role: Lifetime Consulting Physician Name: Jeanmarie Lopez MD Position: [facility] Renal MD Member Role: Lifetime Consulting Physician Address: Address: [address] [place] [address], [address] [facility] [place], [place] [address] Name: Lashonda Clifford Position: [facility] Outreach Member Role: Lifetime Consulting Physician Name: Tiera Wadsworth RN Position: [facility] RN Member Role: Primary Care Nurse Name: Isaiah Angeles MD Position: [facility] Primary Care Physician Member Role: PCP Address: Address: [address] [place] [address]- Name: Annalise Lara RN Position: [facility] RN Member Role: Primary Care Nurse Name: Mark Wilkes MD Position: [facility] Renal MD Member Role: Lifetime Consulting Physician Address: Address: [address] [place] [address] [facility] [place], [place] [address] Name: Bibiana Treviño RN Position: [facility] RN Member Role: Primary Care Nurse Care Team Related Persons Name: MIRA MILLER Address: home [address] [phone] Name: MIRA MILLER Address: home [address] [facility] [id number] Name: MIRA MILLER Address: home [address] [id number] Name: MIRA MILLER Address: home [address] [facility] [place] [place] [id number] Name: MIRA MILLER Address: home [address] [facility] [id number] Name: MIRA MILLER Address: home [address] [phone] Name: MIRA MILLER Address: home [address] [facility] [id number] Name: PRATEEK MILLER Address: [address] [address] Name: BELEN MILLER Address: home [address] [place] [address] Name: BELEN MILLER Address: home [address] [place] [address]
--- OUTSIDE RECORDS SUMMARY | 2024-05-20 07:34 | XMS_ITS | Continuity of Care Document ---
Author Organization [facility] Address [address] [place] [address]- Care Team Providers Care Water/Wastewater Project Engineer Name Role Phone Isaiah Angeles MD Primary Care Physician Encounter [facility] Date(s): 10/02/19 - 10/02/[address] [address]- [facility] Attending Physician: Isaiah Angeles MD Allergies, Adverse [...] Guardian Refuses 1Result Comment: [facility]-[id number] 2Location History: [facility] [place] 3Result Comment: [11/26/2016] [facility] 4Result Comment: [11/26/2016] [facility] 5Result Comment: [11/26/2016] [facility] 6Result Comment: [11/26/2016] [facility] 7Result Comment: [11/26/2016] [facility] 8Result Comment: [11/26/2016] [facility] 9Result Comment: [11/26/2016] [facility] 10Result Comment: [11/26/2016] [facility] 11Result Comment: [11/26/2016] [facility] 12Result Comment: [11/26/2016] [facility] 13Result Comment: [11/26/2016] [facility] 14Result Comment: [11/26/2016] [facility] 15Result Comment: [11/26/2016] [facility] 16Result Comment: [11/26/2016] [facility] 17Result Comment: [11/26/2016] [facility] 18Result Comment: [11/26/2016] [facility] 19Result Comment: [11/26/2016] [facility] 20Result Comment: [11/26/2016] [facility] 21Result Comment: [11/26/2016] [facility] 22Result Comment: [11/26/2016] [facility] 23Result Comment: [11/26/2016] [facility] 24Result Comment: [11/26/2016] [facility] 25Result Comment: [11/26/2016] [facility] 26Result Comment: [11/26/2016] [facility] 27Result Comment: [11/26/2016] [facility] 28Result Comment: [11/26/2016] [facility] 29Result Comment: [11/26/2016] [facility] 30Result Comment: [11/26/2016] [facility] 31Result Comment: [11/26/2016] [facility] 32Result Comment: [11/26/2016] [facility] 33Result Comment: [11/26/2016] [facility] Medications ferrous sulfate 325 mg oral [...]
--- OUTSIDE RECORDS SUMMARY | 2024-05-20 07:34 | XMS_ITS | Continuity of Care Document ---
Author Organization [facility] Ethan lt Address [address] [place] [address]- Care Team Providers Care Turn Sewer Name Role Phone Karthik HENLEY, Isaiah Douglas Primary Care Physician Encounter [facility] Date(s): 08/18/20 - 09/17/20 [facility] Adult [address] [place] [address]- Allergies, Adverse Reactions, Alerts Substance Reaction Severity [...] Or Guardian Refuses 1Result Comment: [facility]-[id number] 2Location History: [facility] [place] 3Result Comment: [11/26/2016] [facility] 4Result Comment: [11/26/2016] [facility] 5Result Comment: [11/26/2016] [facility] 6Result Comment: [11/26/2016] [facility] 7Result Comment: [11/26/2016] [facility] 8Result Comment: [11/26/2016] [facility] 9Result Comment: [11/26/2016] [facility] 10Result Comment: [11/26/2016] [facility] 11Result Comment: [11/26/2016] [facility] 12Result Comment: [11/26/2016] [facility] 13Result Comment: [11/26/2016] [facility] 14Result Comment: [11/26/2016] [facility] 15Result Comment: [11/26/2016] [facility] 16Result Comment: [11/26/2016] [facility] 17Result Comment: [11/26/2016] [facility] 18Result Comment: [11/26/2016] [facility] 19Result Comment: [11/26/2016] [facility] 20Result Comment: [11/26/2016] [facility] 21Result Comment: [11/26/2016] [facility] 22Result Comment: [11/26/2016] [facility] 23Result Comment: [11/26/2016] [facility] 24Result Comment: [11/26/2016] [facility] 25Result Comment: [11/26/2016] [facility] 26Result Comment: [11/26/2016] [facility] 27Result Comment: [11/26/2016] [facility] 28Result Comment: [11/26/2016] [facility] 29Result Comment: [11/26/2016] [facility] 30Result Comment: [11/26/2016] [facility] 31Result Comment: [11/26/2016] [facility] 32Result Comment: [11/26/2016] [facility] 33Result Comment: [11/26/2016] [facility] Medications carvedilol 12.5 mg oral tablet [...]
--- OUTSIDE RECORDS SUMMARY | 2024-05-20 07:34 | XMS_ITS | Continuity of Care Document ---
Author Organization [facility] Address [address] [place] [address]- Care Team Providers Care Diesel Scoop Operator Name Role Phone Karthik HENLEY, Isaiah Douglas Primary Care Physician Encounter [facility] Date(s): 09/13/21 - 10/13/21 [facility] [address] [place] [address]- [place] Allergies, Adverse Reactions, Alerts Substance Reaction [...] Guardian Refuses 1Result Comment: [facility]-[id number] 2Location History: [facility] [place] 3Result Comment: [11/26/2016] [facility] 4Result Comment: [11/26/2016] [facility] 5Result Comment: [11/26/2016] [facility] 6Result Comment: [11/26/2016] [facility] 7Result Comment: [11/26/2016] [facility] 8Result Comment: [11/26/2016] [facility] 9Result Comment: [11/26/2016] [facility] 10Result Comment: [11/26/2016] [facility] 11Result Comment: [11/26/2016] [facility] 12Result Comment: [11/26/2016] [facility] 13Result Comment: [11/26/2016] [facility] 14Result Comment: [11/26/2016] [facility] 15Result Comment: [11/26/2016] [facility] 16Result Comment: [11/26/2016] [facility] 17Result Comment: [11/26/2016] [facility] 18Result Comment: [11/26/2016] [facility] 19Result Comment: [11/26/2016] [facility] 20Result Comment: [11/26/2016] [facility] 21Result Comment: [11/26/2016] [facility] 22Result Comment: [11/26/2016] [facility] 23Result Comment: [11/26/2016] [facility] 24Result Comment: [11/26/2016] [facility] 25Result Comment: [11/26/2016] [facility] 26Result Comment: [11/26/2016] [facility] 27Result Comment: [11/26/2016] [facility] 28Result Comment: [11/26/2016] [facility] 29Result Comment: [11/26/2016] [facility] 30Result Comment: [11/26/2016] [facility] 31Result Comment: [11/26/2016] [facility] 32Result Comment: [11/26/2016] [facility] 33Result Comment: [11/26/2016] [facility] Medications lidocaine 4% topical film 1 [...]
--- OUTSIDE RECORDS SUMMARY | 2024-05-20 07:34 | XMS_ITS | Continuity of Care Document ---
Author Organization [facility] Ethan lt Address [address] [place] [address]- Care Team Providers Care Graphics Production Specialist Name Role Phone Isaiah Angeles MD Primary Care Physician [phone] Encounter [facility] Date(s): 03/27/21 - 04/03/21 [facility] Adult [address] [place] [address]- Attending Physician: Isaiah Angeles MD Allergies, Adverse [...] Guardian Refuses 1Result Comment: [facility]-[id number] 2Location History: [facility] [place] 3Result Comment: [11/26/2016] [facility] 4Result Comment: [11/26/2016] [facility] 5Result Comment: [11/26/2016] [facility] 6Result Comment: [11/26/2016] [facility] 7Result Comment: [11/26/2016] [facility] 8Result Comment: [11/26/2016] [facility] 9Result Comment: [11/26/2016] [facility] 10Result Comment: [11/26/2016] [facility] 11Result Comment: [11/26/2016] [facility] 12Result Comment: [11/26/2016] [facility] 13Result Comment: [11/26/2016] [facility] 14Result Comment: [11/26/2016] [facility] 15Result Comment: [11/26/2016] [facility] 16Result Comment: [11/26/2016] [facility] 17Result Comment: [11/26/2016] [facility] 18Result Comment: [11/26/2016] [facility] 19Result Comment: [11/26/2016] [facility] 20Result Comment: [11/26/2016] [facility] 21Result Comment: [11/26/2016] [facility] 22Result Comment: [11/26/2016] [facility] 23Result Comment: [11/26/2016] [facility] 24Result Comment: [11/26/2016] [facility] 25Result Comment: [11/26/2016] [facility] 26Result Comment: [11/26/2016] [facility] 27Result Comment: [11/26/2016] [facility] 28Result Comment: [11/26/2016] [facility] 29Result Comment: [11/26/2016] [facility] 30Result Comment: [11/26/2016] [facility] 31Result Comment: [11/26/2016] [facility] 32Result Comment: [11/26/2016] [facility] 33Result Comment: [11/26/2016] [facility] Medications levothyroxine 125 mcg (0.125 mg) [...] oldest [Reference Range]: 1 Height 155 cm (03/27/21 10:58 AM) Weight 67.8 kg (03/27/21 10:58 AM) Oxygen Saturation [94-100 %] 95 % (03/27/21 10:58 AM) Pulse Rate [55-90 bpm] 61 bpm (03/27/21 10:58 AM) Body Mass Index [18.5-24.99] 28.22 *H* (03/27/21 10:58 AM) Blood Pressure [90-138/55-84 mm Hg] 122/ 84mm Hg (03/27/21 10:58 AM) Temperature [96.8-100.4 DegF] 98.2 DegF (03/27/21 10:58 AM) Mode of Delivery (Oxygen) Room air (03/27/21 10:58 AM) Blood pressure sites Arm, right (03/27/21 10:58 AM) Temperature Route Oral (03/27/21 10:58 AM) Weight Obtained Via Standing scale (03/27/21 10:58 AM) Social History Social History Type Response Smoking Status Never smoker entered on: 10/24/17 Sex
--- OUTSIDE RECORDS SUMMARY | 2024-05-20 07:34 | XMS_ITS | Continuity of Care Document ---
Author Organization [facility] Ethan lt Address [address] [place] [address]- Care Team Providers Care Director River Restoration Name Role Phone Karthik HENLEY, Isaiah Douglas Primary Care Physician [place] [facility] [place] 02/01/22 - 03/03/22 [facility] Adult [address] [place] [address]- Allergies, Adverse Reactions, Alerts Substance Reaction Severity [...] Given Parent Or Guardian Refuses 1Result Comment: [facility]-[id number] 2Location History: [facility] [place] 3Result Comment: [11/26/2016] [facility] 4Result Comment: [11/26/2016] [facility] 5Result Comment: [11/26/2016] [facility] 6Result Comment: [11/26/2016] [facility] 7Result Comment: [11/26/2016] [facility] 8Result Comment: [11/26/2016] [facility] 9Result Comment: [11/26/2016] [facility] 10Result Comment: [11/26/2016] [facility] 11Result Comment: [11/26/2016] [facility] 12Result Comment: [11/26/2016] [facility] 13Result Comment: [11/26/2016] [facility] 14Result Comment: [11/26/2016] [facility] 15Result Comment: [11/26/2016] [facility] 16Result Comment: [11/26/2016] [facility] 17Result Comment: [11/26/2016] [facility] 18Result Comment: [11/26/2016] [facility] 19Result Comment: [11/26/2016] [facility] 20Result Comment: [11/26/2016] [facility] 21Result Comment: [11/26/2016] [facility] 22Result Comment: [11/26/2016] [facility] 23Result Comment: [11/26/2016] [facility] 24Result Comment: [11/26/2016] [facility] 25Result Comment: [11/26/2016] [facility] 26Result Comment: [11/26/2016] [facility] 27Result Comment: [11/26/2016] [facility] 28Result Comment: [11/26/2016] [facility] 29Result Comment: [11/26/2016] [facility] 30Result Comment: [11/26/2016] [facility] 31Result Comment: [11/26/2016] [facility] 32Result Comment: [11/26/2016] [facility] 33Result Comment: [11/26/2016] [facility] Medications calcium (as carbonate) 500 mg [...]
--- OUTSIDE RECORDS SUMMARY | 2024-05-20 07:34 | XMS_ITS | Continuity of Care Document ---
Author Organization [facility] Address [address] [place] [address]- Care Team Providers Care Cdl Company Flatbed Driver Name Role Phone Karthik HENLEY, Isaiah Douglas Primary Care Physician [place] [facility] [place] 02/14/23 - 03/16/23 [facility] [address] [place] [id number] Allergies, Adverse Reactions, Alerts Substance Reaction Severity Status Adhesive Bandage 1 Rash Active riTUXimab 2 Severe Active codeine 3 Surgical adhesive ta pe itching Active 1surgical tape allergy as per family 2developed anaphylaxis with throat closure sensation and facial swelling needed brief epinephrine drip 3hives Immunizations Given and Recorded Vaccine Date Status Refusal Reason tetanus-diphtheria toxoids (Td) 1 08/15/22 Given [id number] bivalent booster vax 07/05/22 Recorded influenza virus [...] Given Parent Or Guardian Refuses 1Result Comment: [id number] 2Result Comment: [facility] [place] 3Result Comment: [facility]-[id number] 4Location History: [facility] [place] 5Result Comment: [11/26/2016] [facility] 6Result Comment: [11/26/2016] [facility] 7Result Comment: [11/26/2016] [facility] 8Result Comment: [11/26/2016] [facility] 9Result Comment: [11/26/2016] [facility] 10Result Comment: [11/26/2016] [facility] 11Result Comment: [11/26/2016] [facility] 12Result Comment: [11/26/2016] [facility] 13Result Comment: [11/26/2016] [facility] 14Result Comment: [11/26/2016] [facility] 15Result Comment: [11/26/2016] [facility] 16Result Comment: [11/26/2016] [facility] 17Result Comment: [11/26/2016] [facility] 18Result Comment: [11/26/2016] [facility] 19Result Comment: [11/26/2016] [facility] 20Result Comment: [11/26/2016] [facility] 21Result Comment: [11/26/2016] [facility] 22Result Comment: [11/26/2016] [facility] 23Result Comment: [11/26/2016] [facility] 24Result Comment: [11/26/2016] [facility] 25Result Comment: [11/26/2016] [facility] 26Result Comment: [11/26/2016] [facility] 27Result Comment: [11/26/2016] [facility] 28Result Comment: [11/26/2016] [facility] 29Result Comment: [11/26/2016] [facility] 30Result Comment: [11/26/2016] [facility] 31Result Comment: [11/26/2016] [facility] 32Result Comment: [11/26/2016] [facility] 33Result Comment: [11/26/2016] [facility] 34Result Comment: [11/26/2016] [facility] 35Result Comment: [11/26/2016] [facility] Medications Budesonide 1 mg, 1mg/2ml, Refills [...] team information Care Team Personnel Name: Margaux Vvias RN Position: [facility] RN Member Role: Primary Care Nurse Name: Live Leyva MD Position: [facility] Physician -Physician Practices Member Role: Lifetime Consulting Physician Name: Jeanmarie Lopez MD Position: [facility] Renal MD Member Role: Lifetime Consulting Physician Address: Address: [address] [facility], [address] [facility] [place] [address]- Name: Lashonda Clifford Position: [facility] Outreach Member Role: Lifetime Consulting Physician Name: Isaiah Angeles MD Position: [facility] Physician - Primary Care Member Role: PCP Address: Address: [address] [place] [address]- Name: Annalise Lara RN Position: [facility] RN Member Role: Primary Care Nurse Name: Mark Wilkes MD Position: [facility] Renal MD Member Role: Lifetime Consulting Physician Address: Address: [address] [facility] [place] [address]- Name: Bibiana Treviño RN Position: [facility] RN Member Role: Primary Care Nurse Care Team Related Persons Name: CLAUDETTE MILLERE Address: [place] [id number] Name: MIRA MILLER Address: [address] [phone] Name: AKASHMIRA CARTY Address: [address] [phone] Name: AKASHMIRA CARTY Address: [address] [phone] Name: MIRA MILLER Address: [address] [id number] Name: AKASHMIRA CARTY Address: [address] [phone] Name: MIRA MILLER Address: [address] [phone] Name: PRATEEK MILLER Address: [address] [address] Name: BELEN MILLER Address: [address] [address] Name: BELEN MILLER Address: [address] [address]
--- OUTSIDE RECORDS SUMMARY | 2024-05-20 07:34 | XMS_ITS | Continuity of Care Document ---
Author Organization [facility] Address [address] [place] [address]- Care Team Providers Care Manager Portable Name Role Phone Karthik HENLEY, Isaiah Douglas Primary Care Physician Encounter [facility] Date(s): 01/18/23 - 02/17/23 [facility] [address] [place], [place] [address] Attending Physician: Segundo Martinez Admitting Physician: Segundo Martinez Referring Physician: AdmSegundo renee Allergies, Adverse Reactions, Alerts Substance Reaction Severity Status codeine 1 Surgical adhesive ta pe itching Active Adhesive Bandage 2 Rash Active riTUXimab 3 Severe Active 1hives 2surgical tape allergy as per family 3developed anaphylaxis with throat closure sensation and facial swelling needed brief epinephrine drip Immunizations Given and Recorded Vaccine Date Status Refusal Reason tetanus-diphtheria toxoids (Td) 1 08/15/22 Given [id number] bivalent booster vax 07/05/22 Recorded influenza virus [...] Given Parent Or Guardian Refuses 1Result Comment: [id number] 2Result Comment: [facility] [place] 3Result Comment: [facility]-[id number] 4[facility] 5Result Comment: [11/26/2016] [facility] 6Result Comment: [11/26/2016] [facility] 7Result Comment: [11/26/2016] [facility] 8Result Comment: [11/26/2016] [facility] 9Result Comment: [11/26/2016] [facility] 10Result Comment: [11/26/2016] [facility] 11Result Comment: [11/26/2016] [facility] 12Result Comment: [11/26/2016] [facility] 13Result Comment: [11/26/2016] [facility] 14Result Comment: [11/26/2016] [facility] 15Result Comment: [11/26/2016] [facility] 16Result Comment: [11/26/2016] [facility] 17Result Comment: [11/26/2016] [facility] 18Result Comment: [11/26/2016] [facility] 19Result Comment: [11/26/2016] [facility] 20Result Comment: [11/26/2016] [facility] 21Result Comment: [11/26/2016] [facility] 22Result Comment: [11/26/2016] [facility] 23Result Comment: [11/26/2016] [facility] 24Result Comment: [11/26/2016] [facility] 25Result Comment: [11/26/2016] [facility] 26Result Comment: [11/26/2016] [facility] 27Result Comment: [11/26/2016] [facility] 28Result Comment: [11/26/2016] [facility] 29Result Comment: [11/26/2016] [facility] 30Result Comment: [11/26/2016] [facility] 31Result Comment: [11/26/2016] [facility] 32Result Comment: [11/26/2016] [facility] 33Result Comment: [11/26/2016] [facility] 34Result Comment: [11/26/2016] [facility] 35Result Comment: [11/26/2016] [facility] Medications Budesonide 1 mg, 1mg/2ml, Refills [...] Role: Lifetime Consulting Physician Address: Address: [address] [place] [address], [address] [facility] [address] Name: Lashonda Clifford Position: [facility] Outreach Member Role: Lifetime Consulting Physician Name: Isaiah Angeles MD Position: [facility] Physician - Primary Care Member Role: PCP Address: Address: [address] [place] [address]- Name: Annalise Lara RN Position: S RN Member Role: Primary Care Nurse Name: Mark Wilkes MD Position: S Renal MD Member Role: Lifetime Consulting Physician Address: Address: [address] [place] [address] [facility] [place] [address]- Name: Bibiana Treviño RN Position: S RN Member Role: Primary Care Nurse Care Team Related Persons Name: MIRA MILLER Address: [place] [phone] Name: AKASHMIRA CARTY Address: [place] [phone] Name: MIRA MILLER Address: [place] [id number] Name: AKASHMIRA CARTY Address: [address] [phone] Name: MIRA MILLER Address: [place] [phone] Name: MIRA MILLER Address: [address] [phone] Name: AKASHMIRA CARTY Address: [address] [phone] Name: PRATEEK MILLER Address: [address] [address] Name: BELEN MILLER Address: [address] [address] Name: BELEN MILLER Address: [address] [address]
--- OUTSIDE RECORDS SUMMARY | 2024-05-20 07:34 | XMS_ITS | Continuity of Care Document ---
Author Organization [facility] Ethan lt Address [address] [place] [address]- Care Team Providers Care Flight Test Shop Mechanic Name Role Phone Karthik HENLEY, Isaiah Douglas Primary Care Physician [phone] Encounter [facility] Date(s): 02/02/21 - 03/04/21 [facility] Adult [address] [place] [address]- Allergies, Adverse Reactions, Alerts Substance Reaction Severity [...] Comment: [facility]-[id number] 2Location History: [facility] [place] 3Result Comment: [11/26/2016] [facility] 4Result Comment: [11/26/2016] [facility] 5Result Comment: [11/26/2016] [facility] 6Result Comment: [11/26/2016] [facility] 7Result Comment: [11/26/2016] [facility] 8Result Comment: [11/26/2016] [facility] 9Result Comment: [11/26/2016] [facility] 10Result Comment: [11/26/2016] [facility] 11Result Comment: [11/26/2016] [facility] 12Result Comment: [...] [facility] 33Result Comment: [11/26/2016] [facility] Medications levothyroxine 125 mcg (0.125 mg) [...]
--- OUTSIDE RECORDS SUMMARY | 2024-05-20 07:34 | XMS_ITS | Continuity of Care Document ---
Author Organization [facility] Ethan lt Address [address] [place] [address]- Care Team Providers Care Oracle Forms Developer Name Role Phone Karthik HENLEY, Isaiah Douglas Primary Care Physician [place] [facility] Date[place]s): 07/24/21 - 08/23/21 [facility] Adult [address] [place] [address]- Allergies, Adverse Reactions, Alerts Substance Reaction Severity [...] Guardian Refuses 1Result Comment: [facility]-[id number] 2Location History: [facility] [place] 3Result Comment: [11/26/2016] [facility] 4Result Comment: [11/26/2016] [facility] 5Result Comment: [11/26/2016] [facility] 6Result Comment: [11/26/2016] [facility] 7Result Comment: [11/26/2016] [facility] 8Result Comment: [11/26/2016] [facility] 9Result Comment: [11/26/2016] [facility] 10Result Comment: [11/26/2016] [facility] 11Result Comment: [11/26/2016] [facility] 12Result Comment: [11/26/2016] [facility] 13Result Comment: [11/26/2016] [facility] 14Result Comment: [11/26/2016] [facility] 15Result Comment: [11/26/2016] [facility] 16Result Comment: [11/26/2016] [facility] 17Result Comment: [11/26/2016] [facility] 18Result Comment: [11/26/2016] [facility] 19Result Comment: [11/26/2016] [facility] 20Result Comment: [11/26/2016] [facility] 21Result Comment: [11/26/2016] [facility] 22Result Comment: [11/26/2016] [facility] 23Result Comment: [11/26/2016] [facility] 24Result Comment: [11/26/2016] [facility] 25Result Comment: [11/26/2016] [facility] 26Result Comment: [11/26/2016] [facility] 27Result Comment: [11/26/2016] [facility] 28Result Comment: [11/26/2016] [facility] 29Result Comment: [11/26/2016] [facility] 30Result Comment: [11/26/2016] [facility] 31Result Comment: [11/26/2016] [facility] 32Result Comment: [11/26/2016] [facility] 33Result Comment: [11/26/2016] [facility] Medications lidocaine 4% topical film 1 [...]
--- OUTSIDE RECORDS SUMMARY | 2024-05-20 07:35 | XMS_ITS | Continuity of Care Document ---
Author Organization [facility] Address [address] [place] [address]- Care Team Providers Care Magento Web Developer Name Role Phone Karthik HENLEY, Isaiah Douglas Primary Care Physician Encounter [facility] Date(s): 04/18/22 - 05/18/22 [facility] [address] [place] [address]- Allergies, Adverse Reactions, Alerts Substance Reaction Severity [...] Or Guardian Refuses 1Result Comment: [facility]-[id number] 2Location History: [facility] [place] 3Result Comment: [11/26/2016] [facility] 4Result Comment: [11/26/2016] [facility] 5Result Comment: [11/26/2016] [facility] 6Result Comment: [11/26/2016] [facility] 7Result Comment: [11/26/2016] [facility] 8Result Comment: [11/26/2016] [facility] 9Result Comment: [11/26/2016] [facility] 10Result Comment: [11/26/2016] [facility] 11Result Comment: [11/26/2016] [facility] 12Result Comment: [11/26/2016] [facility] 13Result Comment: [11/26/2016] [facility] 14Result Comment: [11/26/2016] [facility] 15Result Comment: [11/26/2016] [facility] 16Result Comment: [11/26/2016] [facility] 17Result Comment: [11/26/2016] [facility] 18Result Comment: [11/26/2016] [facility] 19Result Comment: [11/26/2016] [facility] 20Result Comment: [11/26/2016] [facility] 21Result Comment: [11/26/2016] [facility] 22Result Comment: [11/26/2016] [facility] 23Result Comment: [11/26/2016] [facility] 24Result Comment: [11/26/2016] [facility] 25Result Comment: [11/26/2016] [facility] 26Result Comment: [11/26/2016] [facility] 27Result Comment: [11/26/2016] [facility] 28Result Comment: [11/26/2016] [facility] 29Result Comment: [11/26/2016] [facility] 30Result Comment: [11/26/2016] [facility] 31Result Comment: [11/26/2016] [facility] 32Result Comment: [11/26/2016] [facility] 33Result Comment: [11/26/2016] [facility] Medications Flovent 110 mcg Inhaler HFA [...] Sex Patient Care team information Personnel Name: Karthik HENLEY, Isaiah Douglas Address: Address: [address] [place] [address]
--- OUTSIDE RECORDS SUMMARY | 2024-05-20 07:35 | XMS_ITS | Continuity of Care Document ---
Author Organization [facility] Address [address] [place] [address]- Care Team Providers Care Religion Teacher Name Role Phone Karthik HENLEY, Isaiah Douglas Primary Care Physician [phone] [facility] Date(s): 05/07/22 - 06/06/22 [facility] [address] [place] [address] Allergies, Adverse Reactions, Alerts Substance [...] Comment: [facility] [place] 2Result Comment: [facility]-[id number] 3Location History: [facility] [place] 4Result Comment: [11/26/2016] [facility] 5Result Comment: [11/26/2016] [facility] 6Result Comment: [11/26/2016] [facility] 7Result Comment: [11/26/2016] [facility] 8Result Comment: [11/26/2016] [facility] 9Result Comment: [11/26/2016] [facility] 10Result Comment: [11/26/2016] [facility] 11Result Comment: [11/26/2016] [facility] 12Result Comment: [11/26/2016] [facility] 13Result Comment: [11/26/2016] [facility] 14Result Comment: [11/26/2016] [facility] 15Result Comment: [11/26/2016] [facility] 16Result Comment: [11/26/2016] [facility] 17Result Comment: [11/26/2016] [facility] 18Result Comment: [11/26/2016] [facility] 19Result Comment: [11/26/2016] [facility] 20Result Comment: [11/26/2016] [facility] 21Result Comment: [11/26/2016] [facility] 22Result Comment: [11/26/2016] [facility] 23Result Comment: [11/26/2016] [facility] 24Result Comment: [11/26/2016] [facility] 25Result Comment: [11/26/2016] [facility] 26Result Comment: [11/26/2016] [facility] 27Result Comment: [11/26/2016] [facility] 28Result Comment: [11/26/2016] [facility] 29Result Comment: [11/26/2016] [facility] 30Result Comment: [11/26/2016] [facility] 31Result Comment: [11/26/2016] [facility] 32Result Comment: [11/26/2016] [facility] 33Result Comment: [11/26/2016] [facility] 34Result Comment: [11/26/2016] [facility] Medications Flovent 110 mcg Inhaler HFA [...] Personnel Name: Isaiah Angeles MD Address: Address: [address] [place] [address]-
--- OUTSIDE RECORDS SUMMARY | 2024-05-20 07:35 | XMS_ITS | Continuity of Care Document ---
Author Organization [facility] Ethan lt Address [address] [place] [address]- Care Team Providers Care Freelance Interpreter/Translator Name Role Phone Karthik HENLEY, Isaiah Douglas Primary Care Physician Encounter [facility] Date(s): 05/24/20 - 06/23/20 [facility] Adult [address] [place] [address]- Allergies, Adverse Reactions, Alerts Substance Reaction Severity [...] Given Parent Or Guardian Refuses 1Result Comment: [facility]-[id number] 2Location History: [facility] [place] 3Result Comment: [11/26/2016] [facility] 4Result Comment: [11/26/2016] [facility] 5Result Comment: [11/26/2016] [facility] 6Result Comment: [11/26/2016] [facility] 7Result Comment: [11/26/2016] [facility] 8Result Comment: [11/26/2016] [facility] 9Result Comment: [11/26/2016] [facility] 10Result Comment: [11/26/2016] [facility] 11Result Comment: [11/26/2016] [facility] 12Result Comment: [11/26/2016] [facility] 13Result Comment: [11/26/2016] [facility] 14Result Comment: [11/26/2016] [facility] 15Result Comment: [11/26/2016] [facility] 16Result Comment: [11/26/2016] [facility] 17Result Comment: [11/26/2016] [facility] 18Result Comment: [11/26/2016] [facility] 19Result Comment: [11/26/2016] [facility] 20Result Comment: [11/26/2016] [facility] 21Result Comment: [11/26/2016] [facility] 22Result Comment: [11/26/2016] [facility] 23Result Comment: [11/26/2016] [facility] 24Result Comment: [11/26/2016] [facility] 25Result Comment: [11/26/2016] [facility] 26Result Comment: [11/26/2016] [facility] 27Result Comment: [11/26/2016] [facility] 28Result Comment: [11/26/2016] [facility] 29Result Comment: [11/26/2016] [facility] 30Result Comment: [11/26/2016] [facility] 31Result Comment: [11/26/2016] [facility] 32Result Comment: [11/26/2016] [facility] 33Result Comment: [11/26/2016] [facility] Medications Flovent HFA 110 mcg/inh inhalation [...] 4 Refills, Maintenance, 02/26/20 12:05:00 EDT, Tablet, [facility], 153, cm, 02/26/20 12:03:00 EDT, Height, 62, kg, 01/02/20 11:03:00 EDT, Dry Weight Start Date: 02/26/20 Status: Ordered lisinopril 20 mg oral tablet 20 mg, 1, tablet, By Mouth, Daily, # 30 tablet, Refills 0, Tot. Refills 0, Maintenance, 05/05/20 7:46:00 EDT, Route to Pharmacy Electronically, [facility], 153, cm, 05/05/20 7:32:00 EDT, [...]
--- OUTSIDE RECORDS SUMMARY | 2024-05-20 07:35 | XMS_ITS | Continuity of Care Document ---
Author Organization [facility] Ethan lt Address [address] [place] [address]- Care Team Providers Care Heel Sorter Name Role Phone Karthik HENLEY, Isaiah Douglas Primary Care Physician [phone] Encounter [facility] Date(s): 10/11/21 - 11/10/21 [facility] Adult [address] [place] [address]- Allergies, Adverse Reactions, Alerts Substance Reaction Severity [...] Parent Or Guardian Refuses 1Result Comment: [facility]-[id number] 2[facility] 3Result Comment: [11/26/2016] [facility] 4Result Comment: [11/26/2016] [facility] 5Result Comment: [11/26/2016] [facility] 6Result Comment: [11/26/2016] [facility] 7Result Comment: [11/26/2016] [facility] 8Result Comment: [11/26/2016] [facility] 9Result Comment: [11/26/2016] [facility] 10Result Comment: [11/26/2016] [facility] 11Result Comment: [11/26/2016] [facility] 12Result Comment: [11/26/2016] [facility] 13Result Comment: [11/26/2016] [facility] 14Result Comment: [11/26/2016] [facility] 15Result Comment: [11/26/2016] [facility] 16Result Comment: [11/26/2016] [facility] 17Result Comment: [11/26/2016] [facility] 18Result Comment: [11/26/2016] [facility] 19Result Comment: [11/26/2016] [facility] 20Result Comment: [11/26/2016] [facility] 21Result Comment: [11/26/2016] [facility] 22Result Comment: [11/26/2016] [facility] 23Result Comment: [11/26/2016] [facility] 24Result Comment: [11/26/2016] [facility] 25Result Comment: [11/26/2016] [facility] 26Result Comment: [11/26/2016] [facility] 27Result Comment: [11/26/2016] [facility] 28Result Comment: [11/26/2016] [facility] 29Result Comment: [11/26/2016] [facility] 30Result Comment: [11/26/2016] [facility] 31Result Comment: [11/26/2016] [facility] 32Result Comment: [11/26/2016] [facility] 33Result Comment: [11/26/2016] [facility] Medications lidocaine 4% topical film 1 [...]
--- OUTSIDE RECORDS SUMMARY | 2024-05-20 07:35 | XMS_ITS | Continuity of Care Document ---
Author Organization [facility] Address [address] [place] [address]- Care Team Providers Care Travel Rn Name Role Phone Karthik HENLEY, Isaiah Douglas Primary Care Physician [place] [facility] [place] 04/08/24 - 05/08/24 [facility] [address] [place] [address] Allergies, Adverse Reactions, Alerts Substance Reaction Severity [...] corded tetanus-diphtheria toxoids (Td) 10 08/15/22 Given [id number] bivalent booster vax 07/05/22 Recorded SARS-CoV-2 (COVID-19) [...] Comment: [facility] [place] 2Result Comment: [facility]-[id number] 3Location History: [facility] [place] 4Result Comment: [11/26/2016] [facility] 5Result Comment: [11/26/2016] [facility] 6Result Comment: [11/26/2016] [facility] 7Result Comment: [11/26/2016] [facility] 8Result Comment: [11/26/2016] [facility] 9Result Comment: [11/26/2016] [facility] 10Result Comment: [id number] 11Result Comment: [11/26/2016] [facility] 12Result [...] Peds 33Result Comment: [11/26/2016] [facility] 34Result Comment: [11/26/2016] [facility] 35Result Comment: [11/26/2016] [facility] Medications [...] Team Personnel Name: Live Leyva MD Position: [facility] Physician -Physician Practices Member Role: Lifetime Consulting Physician Name: Jeanmarie Lopez MD Position: [facility] Renal MD Member Role: Lifetime Consulting Physician Address: Address: [address] [place] [address] [address] [place] [address]- Name: Lashonda Clifford Position: [facility] Outreach Member Role: Lifetime Consulting Physician Name: Tiera Wadsworth RN Position: [facility] RN Member Role: Primary Care Nurse Name: John Daivla DO Position: [facility] Renal MD Member Role: Lifetime Consulting Physician Address: Address: [address] [facility] [place] [address]- [place] Name: Karthik HENLEY, Isaiah Douglas Position: [facility] Physician - Primary Care Member Role: PCP Address: Address: [address] [place] [address]- [place] Name: Annalise Lara RN Position: [facility] RN Member Role: Primary Care Nurse Name: Mark Wilkes MD Position: [facility] Renal MD Member Role: Lifetime Consulting Physician Address: Address: [address] [place] [address] [facility] [place] [address]- [place] Name: Bibiana Treviño RN Position: [facility] RN Member Role: Primary Care Nurse Care Team Related Persons Name: MIRA MILLER Address: [place] Address: home [address] [place] [address] [place] Name: MIRA MILLER Address: home [address] [place] [id number] Name: PRATEEK MILLER Address: home [address] [place] [address] Name: BELEN MILLER Address: home [address] [place] [address] Name: BELEN MILLER Address: home [address] [place] [address]
--- OUTSIDE RECORDS SUMMARY | 2024-05-20 07:35 | XMS_ITS | Continuity of Care Document ---
Author Organization [facility] Iain Ethan lt Address [address] [place] [address]- Care Team Providers Care Armor Reconnaissance Specialist Name Role Phone Karthik HENLEY, Isaiah Douglas Primary Care Physician [phone] Encounter [facility] Date(s): 05/10/20 - 06/09/20 [facility] Adult [address] [place] [address]- [facility] Allergies, Adverse Reactions, Alerts Substance Reaction Severity [...] Parent Or Guardian Refuses 1Result Comment: [facility] 3]-[id number] 2Location History: [facility] [place] 3Result Comment: [11/26/2016] [facility] 4Result Comment: [11/26/2016] [facility] 5Result Comment: [11/26/2016] [facility] 6Result Comment: [11/26/2016] [facility] 7Result Comment: [11/26/2016] [facility] 8Result Comment: [11/26/2016] [facility] 9Result Comment: [11/26/2016] [facility] 10Result Comment: [11/26/2016] [facility] 11Result Comment: [11/26/2016] [facility] 12Result Comment: [11/26/2016] [facility] 13Result Comment: [11/26/2016] [facility] 14Result Comment: [11/26/2016] [facility] 15Result Comment: [11/26/2016] [facility] 16Result Comment: [11/26/2016] [facility] 17Result Comment: [11/26/2016] [facility] 18Result Comment: [11/26/2016] [facility] 19Result Comment: [11/26/2016] [facility] 20Result Comment: [11/26/2016] [facility] 21Result Comment: [11/26/2016] [facility] 22Result Comment: [11/26/2016] [facility] 23Result Comment: [11/26/2016] [facility] 24Result Comment: [11/26/2016] [facility] 25Result Comment: [11/26/2016] [facility] 26Result Comment: [11/26/2016] [facility] 27Result Comment: [11/26/2016] [facility] 28Result Comment: [11/26/2016] [facility] 29Result Comment: [11/26/2016] [facility] 30Result Comment: [11/26/2016] [facility] 31Result Comment: [11/26/2016] [facility] 32Result Comment: [11/26/2016] [facility] 33Result Comment: [11/26/2016] [facility] Medications Flovent HFA 110 mcg/inh inhalation [...] 4 Refills, Maintenance, 02/26/20 12:05:00 EDT, Tablet, [facility], 153, cm, 02/26/20 12:03:00 EDT, Height, 62, kg, 01/02/20 11:03:00 EDT, Dry Weight Start Date: 02/26/20 Status: Ordered lisinopril 20 mg oral tablet 20 mg, 1, tablet, By Mouth, Daily, # 30 tablet, Refills 0, Tot. Refills 0, Maintenance, 05/05/20 7:46:00 EDT, Route to Pharmacy Electronically, [facility], 153, cm, 05/05/20 7:32:00 EDT, [...]
--- OUTSIDE RECORDS SUMMARY | 2024-05-20 07:35 | XMS_ITS | Continuity of Care Document ---
Author Organization [facility] Address [address] [place] [address]- Care Team Providers Care Zigzag Appliquer Name Role Phone Karthik HENLEY, Isaiah Douglas Primary Care Physician [phone] Encounter [facility] Date(s): 01/03/23 - 02/02/23 [facility] [address] [place] [address] Allergies, Adverse Reactions, Alerts Substance Reaction Severity Status codeine 1 Surgical adhesive ta pe itching Active Adhesive Bandage 2 Rash Active riTUXimab 3 Severe Active 1hives 2surgical tape allergy as per family 3developed anaphylaxis with throat closure sensation and facial swelling needed brief epinephrine drip Immunizations Given and Recorded Vaccine Date Status Refusal Reason tetanus-diphtheria toxoids (Td) 1 08/15/22 Given [id number] bivalent booster vax 07/05/22 Recorded influenza virus [...] Given Parent Or Guardian Refuses 1Result Comment: [id number] 2Result Comment: [facility] [place] 3Result Comment: [facility]-[id number] 4Location History: [facility] [place] 5Result Comment: [11/26/2016] [facility] 6Result Comment: [11/26/2016] [facility] 7Result Comment: [11/26/2016] [facility] 8Result Comment: [11/26/2016] [facility] 9Result Comment: [11/26/2016] [facility] 10Result Comment: [11/26/2016] [facility] 11Result Comment: [11/26/2016] [facility] 12Result Comment: [11/26/2016] [facility] 13Result Comment: [11/26/2016] [facility] 14Result Comment: [11/26/2016] [facility] 15Result Comment: [11/26/2016] [facility] 16Result Comment: [11/26/2016] [facility] 17Result Comment: [11/26/2016] [facility] 18Result Comment: [11/26/2016] [facility] 19Result Comment: [11/26/2016] [facility] 20Result Comment: [11/26/2016] [facility] 21Result Comment: [11/26/2016] [facility] 22Result Comment: [11/26/2016] [facility] 23Result Comment: [11/26/2016] [facility] 24Result Comment: [11/26/2016] [facility] 25Result Comment: [11/26/2016] [facility] 26Result Comment: [11/26/2016] [facility] 27Result Comment: [11/26/2016] [facility] 28Result Comment: [11/26/2016] [facility] 29Result Comment: [11/26/2016] [facility] 30Result Comment: [11/26/2016] [facility] 31Result Comment: [11/26/2016] [facility] 32Result Comment: [11/26/2016] [facility] 33Result Comment: [11/26/2016] [facility] 34Result Comment: [11/26/2016] [facility] 35Result Comment: [11/26/2016] [facility] Medications cholecalciferol 50 mcg (2000 intl [...] Personnel Name: Margaux Vivas RN Position: [facility] RN Member Role: Primary Care Nurse Name: Live Leyva MD Position: [facility] Physician -Physician Practices Member Role: Lifetime Consulting Physician Name: Jeanmarie Lopez MD Position: [facility] Renal MD Member Role: Lifetime Consulting Physician Address: Address: [address] [place] [address], [facility] [[email or web address]] [address] [facility] [place], [place] [address] Name: Lashonda Clifford Position: [facility] Outreach Member Role: Lifetime Consulting Physician Name: Isaiah Angeles MD Position: [facility] Physician - Primary Care Member Role: PCP Address: Address: [address] [place] [address]- Name: Annalise Lara RN Position: [facility] RN Member Role: Primary Care Nurse Name: Mark Wilkes MD Position: [facility] Renal MD Member Role: Lifetime Consulting Physician Address: Address: [address] [place] [address] [facility] [place] [address]- Name: Bibiana Treviño RN Position: [facility] RN Member Role: Primary Care Nurse Care Team Related Persons Name: MIRA MILLER Address: home [address] [place] [phone] Name: MIRA MILLER Address: home [address] [phone] Name: MIRA MILLER Address: [address] [phone] Name: MIRA MILLER Address: [address] [phone] Name: MIRA MILLER Address: [address] [phone] Name: MIRA MILLER Address: [address] [phone] Name: MIRA MILLER Address: [address] [phone] Name: PRATEEK MILLER Address: [address] [address] Name: BELEN MILLER Address: [address] [address] Name: BELEN MILLER Address: [address] [address]
--- OUTSIDE RECORDS SUMMARY | 2024-05-20 07:35 | XMS_ITS | Continuity of Care Document ---
Author Organization [facility] Address [address] [place] [address]- Care Team Providers Care Poultry Processing Supervisor Name Role Phone Karthik HENLEY, Isaiah Douglas Primary Care Physician En[facility] Date(s): 04/27/21 - 05/27/21 [facility] Adult [address] [place] [address]- Allergies, Adverse Reactions, Alerts Substance Reaction Severity [...] Guardian Refuses 1Result Comment: [facility]-[id number] 2Location [facility] 3Result Comment: [11/26/2016] [facility] 4Result Comment: [11/26/2016] [facility] 5Result Comment: [11/26/2016] [facility] 6Result Comment: [11/26/2016] [facility] 7Result Comment: [11/26/2016] [facility] 8Result Comment: [11/26/2016] [facility] 9Result Comment: [11/26/2016] [facility] 10Result Comment: [11/26/2016] [facility] 11Result Comment: [11/26/2016] [facility] 12Result Comment: [11/26/2016] [facility] 13Result Comment: [11/26/2016] [facility] 14Result Comment: [11/26/2016] [facility] 15Result Comment: [11/26/2016] [facility] 16Result Comment: [11/26/2016] [facility] 17Result Comment: [11/26/2016] [facility] 18Result Comment: [11/26/2016] [facility] 19Result Comment: [11/26/2016] [facility] 20Result Comment: [11/26/2016] [facility] 21Result Comment: [11/26/2016] [facility] 22Result Comment: [11/26/2016] [facility] 23Result Comment: [11/26/2016] [facility] 24Result Comment: [11/26/2016] [facility] 25Result Comment: [11/26/2016] [facility] 26Result Comment: [11/26/2016] [facility] 27Result Comment: [11/26/2016] [facility] 28Result Comment: [11/26/2016] [facility] 29Result Comment: [11/26/2016] [facility] 30Result Comment: [11/26/2016] [facility] 31Result Comment: [11/26/2016] [facility] 32Result Comment: [11/26/2016] [facility] 33Result Comment: [11/26/2016] [facility] Medications levothyroxine 125 mcg (0.125 mg) [...]
--- OUTSIDE RECORDS SUMMARY | 2024-05-20 07:35 | XMS_ITS | Continuity of Care Document ---
Author Organization [facility] Address [address] [place] [address]- Care Team Providers Care Litigation Support Analyst Name Role Phone Isaiah Angeles MD Primary Care Physician Encounter [facility] Date(s): 05/05/20 - 05/12/20 [facility] Adult [address] [place] [address]- [facility] Attending Physician: Isaiah Angeles MD [...] Parent Or Guardian Refuses 1Result Comment: [facility]-[id number] 2Location History: [facility] [place] 3Result Comment: [11/26/2016] [facility] 4Result Comment: [11/26/2016] [facility] 5Result Comment: [11/26/2016] [facility] 6Result Comment: [11/26/2016] [facility] 7Result Comment: [11/26/2016] [facility] 8Result Comment: [11/26/2016] [facility] 9Result Comment: [11/26/2016] [facility] 10Result Comment: [11/26/2016] [facility] 11Result Comment: [11/26/2016] [facility] 12Result Comment: [11/26/2016] [facility] 13Result Comment: [11/26/2016] [facility] 14Result Comment: [11/26/2016] [facility] 15Result Comment: [11/26/2016] [facility] 16Result Comment: [11/26/2016] [facility] 17Result Comment: [11/26/2016] [facility] 18Result Comment: [11/26/2016] [facility] 19Result Comment: [11/26/2016] [facility] 20Result Comment: [11/26/2016] [facility] 21Result Comment: [11/26/2016] [facility] 22Result Comment: [11/26/2016] [facility] 23Result Comment: [11/26/2016] [facility] 24Result Comment: [11/26/2016] [facility] 25Result Comment: [11/26/2016] [facility] 26Result Comment: [11/26/2016] [facility] 27Result Comment: [11/26/2016] [facility] 28Result Comment: [11/26/2016] [facility] 29Result Comment: [11/26/2016] [facility] 30Result Comment: [11/26/2016] [facility] 31Result Comment: [11/26/2016] [facility] 32Result Comment: [11/26/2016] [facility] 33Result Comment: [11/26/2016] [facility] Medications Flovent HFA 110 mcg/inh inhalation [...] 4 Refills, Maintenance, 02/26/20 12:05:00 EDT, Tablet, [facility], 153, cm, 02/26/20 12:03:00 EDT, Height, 62, kg, 01/02/20 11:03:00 EDT, Dry Weight Start Date: 02/26/20 Status: Ordered lisinopril 20 mg oral tablet 20 mg, 1, tablet, By Mouth, Daily, # 30 tablet, Refills 0, Tot. Refills 0, Maintenance, 05/05/20 7:46:00 EDT, Route to Pharmacy Electronically, [facility], 153, cm, 05/05/20 7:32:00 EDT, [...] oldest [Reference Range]: 1 Height 153 cm (05/05/20 7:32 AM) Weight 63.2 kg (05/05/20 7:32 AM) Oxygen Saturation [94-100 %] 99 % (05/05/20 7:32 AM) Pulse Rate [55-90 bpm] 100 bpm *H* (05/05/20 7:32 AM) Body Mass Index [18.5-24.99] 27 *H* (05/05/20 7:32 AM) Blood Pressure [90-138/55-84 mm Hg] 110/ 70mm Hg (05/05/20 7:32 AM) Temperature [96.8-100.4 DegF] 97.8 DegF (05/05/20 7:32 AM) Blood pressure sites Arm, right (05/05/20 7:32 AM) Temperature Route Temporal (05/05/20 7:32 AM) Weight Obtained Via Standing scale (05/05/20 7:32 AM) Social History Social History Type Response Smoking Status Never smoker entered on: 10/24/17 Sex
--- OUTSIDE RECORDS SUMMARY | 2024-05-20 07:35 | XMS_ITS | Continuity of Care Document ---
Author Organization [facility] Ethan [facility] Address [address] [place] [address]- Care Team Providers Care Tunnel Form Placing Supervisor Name Role Phone Karthik HENLEY, Isaiah Douglas Primary Care Physician [phone] Encounter [facility] Date(s): 05/01/21 - 05/31/21 [facility] Adult [address] [place] [address]- Allergies, Adverse Reactions, Alerts Substance Reaction Severity [...] Refuses 1Result Comment: [facility]-[id number] 2Location History: [facility] [place] 3Result Comment: [11/26/2016] [facility] 4Result Comment: [11/26/2016] [facility] 5Result Comment: [11/26/2016] [facility] 6Result Comment: [11/26/2016] [facility] 7Result Comment: [11/26/2016] [facility] 8Result Comment: [11/26/2016] [facility] 9Result Comment: [11/26/2016] [facility] 10Result Comment: [11/26/2016] [facility] 11Result Comment: [11/26/2016] [facility] 12Result Comment: [11/26/2016] [facility] 13Result Comment: [11/26/2016] [facility] 14Result Comment: [11/26/2016] [facility] 15Result Comment: [11/26/2016] [facility] 16Result Comment: [11/26/2016] [facility] 17Result Comment: [11/26/2016] [facility] 18Result Comment: [11/26/2016] [facility] 19Result Comment: [11/26/2016] [facility] 20Result Comment: [11/26/2016] [facility] 21Result Comment: [11/26/2016] [facility] 22Result Comment: [11/26/2016] [facility] 23Result Comment: [11/26/2016] [facility] 24Result Comment: [11/26/2016] [facility] 25Result Comment: [11/26/2016] [facility] 26Result Comment: [11/26/2016] [facility] 27Result Comment: [11/26/2016] [facility] 28Result Comment: [11/26/2016] [facility] 29Result Comment: [11/26/2016] [facility] 30Result Comment: [11/26/2016] [facility] 31Result Comment: [11/26/2016] [facility] 32Result Comment: [11/26/2016] [facility] 33Result Comment: [11/26/2016] [facility] Medications levothyroxine 125 mcg (0.125 mg) [...]
--- OUTSIDE RECORDS SUMMARY | 2024-05-20 07:35 | XMS_ITS | Continuity of Care Document ---
Author Organization [facility] Address [address] [place] [address]- Care Team Providers Care Field Recruiter Name Role Phone Isaiah Angeles MD Primary Care Physician Encounter [facility] Date(s): 08/28/22 - 09/04/22 [facility] Adult [address] [place] [address]- Encounter Diagnosis Cough(Discharge Diagnosis) - 08/28/22 Attending Physician: Gabriela Campos NP Referring Physician: Isaiah Anegles MD Allergies, Adverse Reactions, Alerts Substance Reaction Severity Status codeine 1 Surgical adhesive ta pe itching Active Adhesive Bandage 2 Rash Active riTUXimab 3 Severe Active 1hives 2surgical tape allergy as per family 3developed anaphylaxis with throat closure sensation and facial swelling needed brief epinephrine drip Immunizations Given and Recorded Vaccine Date Status Refusal Reason tetanus-diphtheria toxoids (Td) 1 08/15/22 Given [id number] bivalent booster vax 07/05/22 Recorded influenza virus [...] Given Parent Or Guardian Refuses 1Result Comment: [id number] 2Result Comment: [facility] [place] 3Result Comment: [facility]-[id number] 4Location History: [facility] [place] 5Result Comment: [11/26/2016] [facility] 6Result Comment: [11/26/2016] [facility] 7Result Comment: [11/26/2016] [facility] 8Result Comment: [11/26/2016] [facility] 9Result Comment: [11/26/2016] [facility] 10Result Comment: [11/26/2016] [facility] 11Result Comment: [11/26/2016] [facility] 12Result Comment: [11/26/2016] [facility] 13Result Comment: [11/26/2016] [facility] 14Result Comment: [11/26/2016] [facility] 15Result Comment: [11/26/2016] [facility] 16Result Comment: [11/26/2016] [facility] 17Result Comment: [11/26/2016] [facility] 18Result Comment: [11/26/2016] [facility] 19Result Comment: [11/26/2016] [facility] 20Result Comment: [11/26/2016] [facility] 21Result Comment: [11/26/2016] [facility] 22Result Comment: [11/26/2016] [facility] 23Result Comment: [11/26/2016] [facility] 24Result Comment: [11/26/2016] [facility] 25Result Comment: [11/26/2016] [facility] 26Result Comment: [11/26/2016] [facility] 27Result Comment: [11/26/2016] [facility] 28Result Comment: [11/26/2016] [facility] 29Result Comment: [11/26/2016] [facility] 30Result Comment: [11/26/2016] [facility] 31Result Comment: [11/26/2016] [facility] 32Result Comment: [11/26/2016] [facility] 33Result Comment: [11/26/2016] [facility] 34Result Comment: [11/26/2016] [facility] 35Result Comment: [11/26/2016] [facility] Medications dextromethorphan-guaifenesin 10 mg-100 mg/5 mL [...] Diagnosis Diagnosis Type Effective Dates Health Status Clini travis Service Informant Cough Discharge Diagnosis 08/28/22 Vital Signs Most recent to oldest [Reference Range]: 1 Height 153 cm (08/28/22 1:31 PM) Social History Social History Type Response Smoking Status Never smoker entered on: 10/24/17 Sex Patient Care team information Care Team Personnel Name: Margaux Vivas RN Position: [facility] RN Member Role: Primary Care Nurse Name: Live Leyva MD Position: [facility] Physician -Physician Practices Member Role: Lifetime Consulting Physician Name: Jeanmarie Lopez MD Position: [facility] Renal MD Member Role: Lifetime Consulting Physician Address: Address: [address], [address] [facility] [place] [address]- [place] Name: Lashonda Clifford Position: [facility] Outreach Member Role: Lifetime Consulting Physician Name: Ermelinda WEBB, Tiera Position: [facility] RN Member Role: Primary Care Nurse Name: Karthik HENLEY, Isaiah Douglas Position: [facility] Primary Care Physician Member Role: PCP Address: Address: [address] [place] [address]- [place] Name: Marco WEBB, Annalise Position: [facility] RN Member Role: Primary Care Nurse Name: Chung HENLEY, Mark Position: [facility] Renal MD Member Role: Lifetime Consulting Physician Address: Address: [address] [facility] [place] [address]- [place] Name: Bibiana Treviño RN Position: [facility] RN Member Role: Primary Care Nurse Care Team Related Persons Name: MIRA MILLER Address: [place] [phone] Name: MIRA MILLER Address: home [address] [place] [phone] Name: MIRA MILLER Address: home [address] [place] [phone] Name: MIRA MILLER Address: [address] [phone] Name: MIRA MILLER Address: [address] [phone] Name: MIRA MILLER Address: [address] [phone] Name: MIRA MILLER Address: home [address] [place] [phone] Name: PRATEEK MILLER Address: [address] [address] Name: BELEN MILLER Address: [address] [address] Name: BELEN MILLER Address: home [address] [place] [address]
--- OUTSIDE RECORDS SUMMARY | 2024-05-20 07:35 | XMS_ITS | Continuity of Care Document ---
Author Organization [facility] Endocr[facility]olo gy and Diabetes Address [address] [place] [address]- Care Team Providers Care Retail Gift Card Merchandising Name Role Phone Karthik HENLEY, Isaiah Douglas Primary Care Physician Encounter [facility] Date(s): 07/27/20 - 08/26/20 [facility] Diabetes [address] [place] [address]- Allergies, Adverse Reactions, Alerts Substance Reaction Severity [...] corded Haemophilus B-Hepatitis B Vaccine 27 06/16/97 Fraeed rded Haemophilus B-Hepatitis B Vaccine 28 96 [...] Guardian Refuses 1Result Comment: [id number] 2Location History: [facility] [place] 3Result Comment: [11/26/2016] [facility] 4Result Comment: [11/26/2016] [facility] 5Result Comment: [11/26/2016] [facility] 6Result Comment: [11/26/2016] [facility] 7Result Comment: [11/26/2016] [facility] 8Result Comment: [11/26/2016] [facility] 9Result Comment: [11/26/2016] [facility] 10Result Comment: [11/26/2016] [facility] 11Result Comment: [11/26/2016] [facility] 12Result Comment: [11/26/2016] [facility] 13Result Comment: [11/26/2016] [facility] 14Result Comment: [11/26/2016] [facility] 15Result Comment: [11/26/2016] [facility] 16Result Comment: [11/26/2016] [facility] 17Result Comment: [11/26/2016] [facility] 18Result Comment: [11/26/2016] [facility] 19Result Comment: [11/26/2016] [facility] 20Result Comment: [11/26/2016] [facility] 21Result Comment: [11/26/2016] [facility] 22Result Comment: [11/26/2016] [facility] 23Result Comment: [11/26/2016] [facility] 24Result Comment: [11/26/2016] [facility] 25Result Comment: [11/26/2016] [facility] 26Result Comment: [11/26/2016] [facility] 27Result Comment: [11/26/2016] [facility] 28Result Comment: [11/26/2016] [facility] 29Result Comment: [11/26/2016] [facility] 30Result Comment: [11/26/2016] [facility] 31Result Comment: [11/26/2016] [facility] 32Result Comment: [11/26/2016] [facility] 33Result Comment: [11/26/2016] [facility] Medications carvedilol 12.5 mg oral tablet [...]
--- OUTSIDE RECORDS SUMMARY | 2024-05-20 07:35 | XMS_ITS | Continuity of Care Document ---
Author Organization [facility] Ethan [facility] Address [address] [place] [address]- Care Team Providers Care Hide Examiner Name Role Phone Karthik HENLEY, Isaiah Douglas Primary Care Physician [phone] Encounter [facility] Date(s): 03/17/21 - 04/16/21 [facility] Adult [address] [place] [address]- Allergies, Adverse Reactions, Alerts Substance Reaction Severity [...] Or Guardian Refuses 1Result Comment: [facility]-[id number] 2Location History[facility] 3Result Comment: [11/26/2016] [facility] 4Result Comment: [11/26/2016] [facility] 5Result Comment: [11/26/2016] [facility] 6Result Comment: [11/26/2016] [facility] 7Result Comment: [11/26/2016] [facility] 8Result Comment: [11/26/2016] [facility] 9Result Comment: [11/26/2016] [facility] 10Result Comment: [11/26/2016] [facility] 11Result Comment: [11/26/2016] [facility] 12Result Comment: [11/26/2016] [facility] 13Result Comment: [11/26/2016] [facility] 14Result Comment: [11/26/2016] [facility] 15Result Comment: [11/26/2016] [facility] 16Result Comment: [11/26/2016] [facility] 17Result Comment: [11/26/2016] [facility] 18Result Comment: [11/26/2016] [facility] 19Result Comment: [11/26/2016] [facility] 20Result Comment: [11/26/2016] [facility] 21Result Comment: [11/26/2016] [facility] 22Result Comment: [11/26/2016] [facility] 23Result Comment: [11/26/2016] [facility] 24Result Comment: [11/26/2016] [facility] 25Result Comment: [11/26/2016] [facility] 26Result Comment: [11/26/2016] [facility] 27Result Comment: [11/26/2016] [facility] 28Result Comment: [11/26/2016] [facility] 29Result Comment: [11/26/2016] [facility] 30Result Comment: [11/26/2016] [facility] 31Result Comment: [11/26/2016] [facility] 32Result Comment: [11/26/2016] [facility] 33Result Comment: [11/26/2016] [facility] Medications levothyroxine 125 mcg (0.125 mg) [...]
--- OUTSIDE RECORDS SUMMARY | 2024-05-20 07:35 | XMS_ITS | Continuity of Care Document ---
Author Organization [facility] Address [address] [place] [address]- Care Team Providers Care Coal Handling Supervisor Name Role Phone Karthik HENLEY, Isaiah Douglas Primary Care Physician [phone] Encounter [facility] Date(s): 03/14/21 - 04/13/21 [facility] Adult [address] [place] [address]- Allergies, Adverse Reactions, Alerts Substance Reaction Severity [...] Guardian Refuses 1Result Comment: [facility]-[id number] 2Location History[facility] 3Result Comment: [11/26/2016] [facility] 4Result Comment: [11/26/2016] [facility] 5Result Comment: [11/26/2016] [facility] 6Result Comment: [11/26/2016] [facility] 7Result Comment: [11/26/2016] [facility] 8Result Comment: [11/26/2016] [facility] 9Result Comment: [11/26/2016] [facility] 10Result Comment: [11/26/2016] [facility] 11Result Comment: [11/26/2016] [facility] 12Result Comment: [11/26/2016] [facility] 13Result Comment: [11/26/2016] [facility] 14Result Comment: [11/26/2016] [facility] 15Result Comment: [11/26/2016] [facility] 16Result Comment: [11/26/2016] [facility] 17Result Comment: [11/26/2016] [facility] 18Result Comment: [11/26/2016] [facility] 19Result Comment: [11/26/2016] [facility] 20Result Comment: [11/26/2016] [facility] 21Result Comment: [11/26/2016] [facility] 22Result Comment: [11/26/2016] [facility] 23Result Comment: [11/26/2016] [facility] 24Result Comment: [11/26/2016] [facility] 25Result Comment: [11/26/2016] [facility] 26Result Comment: [11/26/2016] [facility] 27Result Comment: [11/26/2016] [facility] 28Result Comment: [11/26/2016] [facility] 29Result Comment: [11/26/2016] [facility] 30Result Comment: [11/26/2016] [facility] 31Result Comment: [11/26/2016] [facility] 32Result Comment: [11/26/2016] [facility] 33Result Comment: [11/26/2016] [facility] Medications levothyroxine 125 mcg (0.125 mg) [...]
--- OUTSIDE RECORDS SUMMARY | 2024-05-20 07:35 | XMS_ITS | Continuity of Care Document ---
Author Organization [facility] Ethan lt Address [address] [place] [address]- Care Team Providers Care Turn Laster Name Role Phone Karthik HENLEY, Isaiah Douglas Primary Care Physician [phone] Encounter [facility] Date(s): 03/22/21 - 04/21/21 [facility] Adult [address] [place] [address]- Allergies, Adverse Reactions, Alerts Substance Reaction Severity [...] Or Guardian Refuses 1Result Comment: [facility]-[id number] 2Location History: [facility] [place] 3Result Comment: [11/26/2016] [facility] 4Result Comment: [11/26/2016] [facility] 5Result Comment: [11/26/2016] [facility] 6Result Comment: [11/26/2016] [facility] 7Result Comment: [11/26/2016] [facility] 8Result Comment: [11/26/2016] [facility] 9Result Comment: [11/26/2016] [facility] 10Result Comment: [11/26/2016] [facility] 11Result Comment: [11/26/2016] [facility] 12Result Comment: [11/26/2016] [facility] 13Result Comment: [11/26/2016] [facility] 14Result Comment: [11/26/2016] [facility] 15Result Comment: [11/26/2016] [facility] 16Result Comment: [11/26/2016] [facility] 17Result Comment: [11/26/2016] [facility] 18Result Comment: [11/26/2016] [facility] 19Result Comment: [11/26/2016] [facility] 20Result Comment: [11/26/2016] [facility] 21Result Comment: [11/26/2016] [facility] 22Result Comment: [11/26/2016] [facility] 23Result Comment: [11/26/2016] [facility] 24Result Comment: [11/26/2016] [facility] 25Result Comment: [11/26/2016] [facility] 26Result Comment: [11/26/2016] [facility] 27Result Comment: [11/26/2016] [facility] 28Result Comment: [11/26/2016] [facility] 29Result Comment: [11/26/2016] [facility] 30Result Comment: [11/26/2016] [facility] 31Result Comment: [11/26/2016] [facility] 32Result Comment: [11/26/2016] [facility] 33Result Comment: [11/26/2016] [facility] Medications levothyroxine 125 mcg (0.125 mg) [...]
--- OUTSIDE RECORDS SUMMARY | 2024-05-20 07:35 | XMS_ITS | Continuity of Care Document ---
Author Organization [facility] Iain Ethan lt Address [address] [place] [address]- Care Team Providers Care Standards Engineer Name Role Phone Karthik HENLEY, Isaiah Douglas Primary Care Physician Encounter [facility] Date(s): 10/10/21 - 11/09/21 [facility] Adult [address] [place] [address]- Allergies, Adverse Reactions, Alerts Substance Reaction Severity [...] Or Guardian Refuses 1Result Comment: [facility]-[id number] 2Location History[facility] [facility] 3Result Comment: [11/26/2016] [facility] 4Result Comment: [11/26/2016] [facility] 5Result Comment: [11/26/2016] [facility] 6Result Comment: [11/26/2016] [facility] 7Result Comment: [11/26/2016] [facility] 8Result Comment: [11/26/2016] [facility] 9Result Comment: [11/26/2016] [facility] 10Result Comment: [11/26/2016] [facility] 11Result Comment: [11/26/2016] [facility] 12Result Comment: [11/26/2016] [facility] 13Result Comment: [11/26/2016] [facility] 14Result Comment: [11/26/2016] [facility] 15Result Comment: [11/26/2016] [facility] 16Result Comment: [11/26/2016] [facility] 17Result Comment: [11/26/2016] [facility] 18Result Comment: [11/26/2016] [facility] 19Result Comment: [11/26/2016] [facility] 20Result Comment: [11/26/2016] [facility] 21Result Comment: [11/26/2016] [facility] 22Result Comment: [11/26/2016] [facility] 23Result Comment: [11/26/2016] [facility] 24Result Comment: [11/26/2016] [facility] 25Result Comment: [11/26/2016] [facility] 26Result Comment: [11/26/2016] [facility] 27Result Comment: [11/26/2016] [facility] 28Result Comment: [11/26/2016] [facility] 29Result Comment: [11/26/2016] [facility] 30Result Comment: [11/26/2016] [facility] 31Result Comment: [11/26/2016] [facility] 32Result Comment: [11/26/2016] [facility] 33Result Comment: [11/26/2016] [facility]ations lidocaine 4% topical film 1 [...]
--- OUTSIDE RECORDS SUMMARY | 2024-05-20 07:35 | XMS_ITS | Continuity of Care Document ---
Author Organization [facility] Ethan lt Address [address] [place] [address]- Care Team Providers Care Lyric Writer Name Role Phone Isaiah Angeles MD Primary Care Physician Encounter [facility] Date(s): 04/04/21 - 04/11/21 [facility] Adult [address] [place] [address]- Attending Physician: Isaiah Angeles MD Allergies, Adverse [...] Parent Or Guardian Refuses 1Result Comment: [facility]-[id number] 2Location History: [facility] [place] 3Result Comment: [11/26/2016] [facility] 4Result Comment: [11/26/2016] [facility] 5Result Comment: [11/26/2016] [facility] 6Result Comment: [11/26/2016] [facility] 7Result Comment: [11/26/2016] [facility] 8Result Comment: [11/26/2016] [facility] 9Result Comment: [11/26/2016] [facility] 10Result Comment: [11/26/2016] [facility] 11Result Comment: [11/26/2016] [facility] 12Result Comment: [11/26/2016] [facility] 13Result Comment: [11/26/2016] [facility] 14Result Comment: [11/26/2016] [facility] 15Result Comment: [11/26/2016] [facility] 16Result Comment: [11/26/2016] [facility] 17Result Comment: [11/26/2016] [facility] 18Result Comment: [11/26/2016] [facility] 19Result Comment: [11/26/2016] [facility] 20Result Comment: [11/26/2016] [facility] 21Result Comment: [11/26/2016] [facility] 22Result Comment: [11/26/2016] [facility] 23Result Comment: [11/26/2016] [facility] 24Result Comment: [11/26/2016] [facility] 25Result Comment: [11/26/2016] [facility] 26Result Comment: [11/26/2016] [facility] 27Result Comment: [11/26/2016] [facility] 28Result Comment: [11/26/2016] [facility] 29Result Comment: [11/26/2016] [facility] 30Result Comment: [11/26/2016] [facility] 31Result Comment: [11/26/2016] [facility] 32Result Comment: [11/26/2016] [facility] 33Result Comment: [11/26/2016] [facility] Medications levothyroxine 125 mcg (0.125 mg) [...]
--- OUTSIDE RECORDS SUMMARY | 2024-05-20 07:35 | XMS_ITS | Continuity of Care Document ---
Author Organization [facility] Address [address] [place] [address]- Care Team Providers Care Transfer Worker Name Role Phone Karthik HENLEY, Isaiah Douglas Primary Care Physician [phone] En[place] [facility] Date(s): 03/06/22 - 04/05/22 [facility] [address] [place] [address]- Allergies, Adverse Reactions, Alerts Substance Reaction Severity [...] Guardian Refuses 1Result Comment: [id number] 2Location History: [facility] [place] 3Result Comment: [11/26/2016] [facility] 4Result Comment: [11/26/2016] [facility] 5Result Comment: [11/26/2016] [facility] 6Result Comment: [11/26/2016] [facility] 7Result Comment: [11/26/2016] [facility] 8Result Comment: [11/26/2016] [facility] 9Result Comment: [11/26/2016] [facility] 10Result Comment: [11/26/2016] [facility] 11Result Comment: [11/26/2016] [facility] 12Result Comment: [11/26/2016] [facility] 13Result Comment: [11/26/2016] [facility] 14Result Comment: [11/26/2016] [facility] 15Result Comment: [11/26/2016] [facility] 16Result Comment: [11/26/2016] [facility] 17Result Comment: [11/26/2016] [facility] 18Result Comment: [11/26/2016] [facility] 19Result Comment: [11/26/2016] [facility] 20Result Comment: [11/26/2016] [facility] 21Result Comment: [11/26/2016] [facility] 22Result Comment: [11/26/2016] [facility] 23Result Comment: [11/26/2016] [facility] 24Result Comment: [11/26/2016] [facility] 25Result Comment: [11/26/2016] [facility] 26Result Comment: [11/26/2016] [facility] 27Result Comment: [11/26/2016] [facility] 28Result Comment: [11/26/2016] [facility] 29Result Comment: [11/26/2016] [facility] 30Result Comment: [11/26/2016] [facility] 31Result Comment: [11/26/2016] [facility] 32Result Comment: [11/26/2016] [facility] 33Result Comment: [11/26/2016] [facility] Medications calcium (as carbonate) 500 mg [...]
--- OUTSIDE RECORDS SUMMARY | 2024-05-20 07:35 | XMS_ITS | Continuity of Care Document ---
Author Organization [facility] Iain Ethan lt Address [address] [place] [address]- Care Team Providers Care Iron Cutter Name Role Phone Karthik HENLEY, Isaiah Douglas Primary Care Physician Encounter [facility] Date(s): 08/26/20 - 09/25/20 [facility] Adult [address] [place] [address]- Allergies, Adverse Reactions, Alerts Substance Reaction Severity [...] Guardian Refuses 1Result Comment: [facility]-[id number] 2Location History: [facility] [place] 3Result Comment: [11/26/2016] [facility] 4Result Comment: [11/26/2016] [facility] 5Result Comment: [11/26/2016] [facility] 6Result Comment: [11/26/2016] [facility] 7Result Comment: [11/26/2016] [facility] 8Result Comment: [11/26/2016] [facility] 9Result Comment: [11/26/2016] [facility] 10Result Comment: [11/26/2016] [facility] 11Result Comment: [11/26/2016] [facility] 12Result Comment: [11/26/2016] [facility] 13Result Comment: [11/26/2016] [facility] 14Result Comment: [11/26/2016] [facility] 15Result Comment: [11/26/2016] [facility] 16Result Comment: [11/26/2016] [facility] 17Result Comment: [11/26/2016] [facility] 18Result Comment: [11/26/2016] [facility] 19Result Comment: [11/26/2016] [facility] 20Result Comment: [11/26/2016] [facility] 21Result Comment: [11/26/2016] [facility] 22Result Comment: [11/26/2016] [facility] 23Result Comment: [11/26/2016] [facility] 24Result Comment: [11/26/2016] [facility] 25Result Comment: [11/26/2016] [facility] 26Result Comment: [11/26/2016] [facility] 27Result Comment: [11/26/2016] [facility] 28Result Comment: [11/26/2016] [facility] 29Result Comment: [11/26/2016] [facility] 30Result Comment: [11/26/2016] [facility] 31Result Comment: [11/26/2016] [facility] 32Result Comment: [11/26/2016] [facility] 33Result Comment: [11/26/2016] [facility] Medications carvedilol 12.5 mg oral tablet [...]
--- OUTSIDE RECORDS SUMMARY | 2024-05-20 07:35 | XMS_ITS | Continuity of Care Document ---
Author Organization [facility] Iain Ethan lt Address [address] [place] [address]- Care Team Providers Care Teaching Dietitian Name Role Phone Karthik HENLEY, Isaiah Douglas Primary Care Physician En[place] [facility] [place] Date(s): 08/29/21 - 09/28/21 [facility] Adult [address] [place] [address]- Allergies, Adverse Reactions, Alerts Substance Reaction Severity [...] Parent Or Guardian Refuses 1Result Comment: [facility]-[id number] 2Location History: [facility] [place] 3Result Comment: [11/26/2016] [facility] 4Result Comment: [11/26/2016] [facility] 5Result Comment: [11/26/2016] [facility] 6Result Comment: [11/26/2016] [facility] 7Result Comment: [11/26/2016] [facility] 8Result Comment: [11/26/2016] [facility] 9Result Comment: [11/26/2016] [facility] 10Result Comment: [11/26/2016] [facility] 11Result Comment: [11/26/2016] [facility] 12Result Comment: [11/26/2016] [facility] 13Result Comment: [11/26/2016] [facility] 14Result Comment: [11/26/2016] [facility] 15Result Comment: [11/26/2016] [facility] 16Result Comment: [11/26/2016] [facility] 17Result Comment: [11/26/2016] [facility] 18Result Comment: [11/26/2016] [facility] 19Result Comment: [11/26/2016] [facility] 20Result Comment: [11/26/2016] [facility] 21Result Comment: [11/26/2016] [facility] 22Result Comment: [11/26/2016] [facility] 23Result Comment: [11/26/2016] [facility] 24Result Comment: [11/26/2016] [facility] 25Result Comment: [11/26/2016] [facility] 26Result Comment: [11/26/2016] [facility] 27Result Comment: [11/26/2016] [facility] 28Result Comment: [11/26/2016] [facility] 29Result Comment: [11/26/2016] [facility] 30Result Comment: [11/26/2016] [facility] 31Result Comment: [11/26/2016] [facility] 32Result Comment: [11/26/2016] [facility] 33Result Comment: [11/26/2016] [facility] Medications lidocaine 4% topical film 1 [...]
--- OUTSIDE RECORDS SUMMARY | 2024-05-20 07:36 | XMS_ITS | Continuity of Care Document ---
Author Organization [facility] Ethan lt Address [address] [place] [address]- Care Team Providers Care Marketing Project Coordinator Name Role Phone Karthik HENLEY, Isaiah Douglas Primary Care Physician Encounter [facility] Date(s): 01/03/23 - 02/02/23 [facility] Adult [address] [place] [address]- Allergies, Adverse Reactions, Alerts Substance Reaction Severity Status codeine 1 Surgical adhesive ta pe itching Active Adhesive Bandage 2 Rash Active riTUXimab 3 Severe Active 1hives 2surgical tape allergy as per family 3developed anaphylaxis with throat closure sensation and facial swelling needed brief epinephrine drip Immunizations Given and Recorded Vaccine Date Status Refusal Reason tetanus-diphtheria toxoids (Td) 1 08/15/22 Given [id number] bivalent booster vax 07/05/22 Recorded influenza virus [...] Given Parent Or Guardian Refuses 1Result Comment: [id number] 2Result Comment: [facility] [place] 3Result Comment: [facility]-[id number] 4Location History: [facility] [place] 5Result Comment: [11/26/2016] [facility] 6Result Comment: [11/26/2016] [facility] 7Result Comment: [11/26/2016] [facility] 8Result Comment: [11/26/2016] [facility] 9Result Comment: [11/26/2016] [facility] 10Result Comment: [11/26/2016] [facility] 11Result Comment: [11/26/2016] [facility] 12Result Comment: [11/26/2016] [facility] 13Result Comment: [11/26/2016] [facility] 14Result Comment: [11/26/2016] [facility] 15Result Comment: [11/26/2016] [facility] 16Result Comment: [11/26/2016] [facility] 17Result Comment: [11/26/2016] [facility] 18Result Comment: [11/26/2016] [facility] 19Result Comment: [11/26/2016] [facility] 20Result Comment: [11/26/2016] [facility] 21Result Comment: [11/26/2016] [facility] 22Result Comment: [11/26/2016] [facility] 23Result Comment: [11/26/2016] [facility] 24Result Comment: [11/26/2016] [facility] 25Result Comment: [11/26/2016] [facility] 26Result Comment: [11/26/2016] [facility] 27Result Comment: [11/26/2016] [facility] 28Result Comment: [11/26/2016] [facility] 29Result Comment: [11/26/2016] [facility] 30Result Comment: [11/26/2016] [facility] 31Result Comment: [11/26/2016] [facility] 32Result Comment: [11/26/2016] [facility] 33Result Comment: [11/26/2016] [facility] 34Result Comment: [11/26/2016] [facility] 35Result Comment: [11/26/2016] [facility] Medications cholecalciferol 50 mcg (2000 intl [...] Team Personnel Name: Margaux Vivas RN Position: [facility] RN Member Role: Primary Care Nurse Name: Live Leyva MD Position: [facility] Physician -Physician Practices Member Role: Lifetime Consulting Physician Name: Jeanmarie Lopez MD Position: [facility] Renal MD Member Role: Lifetime Consulting Physician Address: Address: [address] [place] [address], [facility] [address] [facility] [place], [place] [address] Name: Lashonda Clifford Position: [facility] Outreach Member Role: Lifetime Consulting Physician Name: Isaiah Angeles MD Position: [facility] Physician - Primary Care Member Role: PCP Address: Address: [address] [place] [address]- Name: Annalise Lara RN Position: [facility] RN Member Role: Primary Care Nurse Name: Mark Wilkes MD Position: [facility] Renal MD Member Role: Lifetime Consulting Physician Address: Address: [address] [place] [address] [facility] [place] [address]- Name: Bibiana Treviño RN Position: [facility] RN Member Role: Primary Care Nurse Care Team Related Persons Name: MIRA MILLER Address: home [address] [phone] Name: AKASHRICARDOJANETHMIRA Address: home [address] [phone] Name: MIRA MILLER Address: [address] [phone] Name: MIRA MILLER Address: [address] [id number] Name: MIRA MILLER Address: [address] [id number] Name: MIRA MILLER Address: [address] [id number] Name: MIRA MILLER Address: [address] [id number] Name: PRATEEK MILLER Address: [address] [address] Name: BELEN MILLER Address: [address] [address] Name: BELEN MILLER Address: [address] [address]
--- OUTSIDE RECORDS SUMMARY | 2024-05-20 07:36 | XMS_ITS | Continuity of Care Document ---
Author Organization [facility] Iain Ethan lt Address [address] [place] [address]- Care Team Providers Care Air Pollution Specialist Name Role Phone Karthik HENLEY, Isaiah Douglas Primary Care Physician [place] [facility] [place] Date(s): 10/17/20 - 11/16/20 [facility] Adult [address] [place] [address]- Allergies, Adverse Reactions, Alerts Substance Reaction Severity [...] Or Guardian Refuses 1Result Comment: [facility]-[id number] 2Location History: [facility] [place] 3Result Comment: [11/26/2016] [facility] 4Result Comment: [11/26/2016] [facility] 5Result Comment: [11/26/2016] [facility] 6Result Comment: [11/26/2016] [facility] 7Result Comment: [11/26/2016] [facility] 8Result Comment: [11/26/2016] [facility] 9Result Comment: [11/26/2016] [facility] 10Result Comment: [11/26/2016] [facility] 11Result Comment: [11/26/2016] [facility] 12Result Comment: [11/26/2016] [facility] 13Result Comment: [11/26/2016] [facility] 14Result Comment: [11/26/2016] [facility] 15Result Comment: [11/26/2016] [facility] 16Result Comment: [11/26/2016] [facility] 17Result Comment: [11/26/2016] [facility] 18Result Comment: [11/26/2016] [facility] 19Result Comment: [11/26/2016] [facility] 20Result Comment: [11/26/2016] [facility] 21Result Comment: [11/26/2016] [facility] 22Result Comment: [11/26/2016] [facility] 23Result Comment: [11/26/2016] [facility] 24Result Comment: [11/26/2016] [facility] 25Result Comment: [11/26/2016] [facility] 26Result Comment: [11/26/2016] [facility] 27Result Comment: [11/26/2016] [facility] 28Result Comment: [11/26/2016] [facility] 29Result Comment: [11/26/2016] [facility] 30Result Comment: [11/26/2016] [facility] 31Result Comment: [11/26/2016] [facility] 32Result Comment: [11/26/2016] [facility] 33Result Comment: [11/26/2016] [facility] Medications lidocaine 4% topical film 1 [...]
--- OUTSIDE RECORDS SUMMARY | 2024-05-20 07:36 | XMS_ITS | Continuity of Care Document ---
Author Organization [facility] ter Address [address] [place] [address]- Care Team Providers Care Improvement Manager Name Role Phone Karthik HENLEY, Isaiah Douglas Primary Care Physician En[place] [facility] [place] Date(s): 10/02/19 - 10/02/[address] [address]- [facility] Attending Physician: Ama Gilman MD Allergies, Adverse Reactions, [...] Given Parent Or Guardian Refuses 1Result Comment: [facility]-[id number] 2Location History: [facility] [place] 3Result Comment: [11/26/2016] [facility] 4Result Comment: [11/26/2016] [facility] 5Result Comment: [11/26/2016] [facility] 6Result Comment: [11/26/2016] [facility] 7Result Comment: [11/26/2016] [facility] 8Result Comment: [11/26/2016] [facility] 9Result Comment: [11/26/2016] [facility] 10Result Comment: [11/26/2016] [facility] 11Result Comment: [11/26/2016] [facility] 12Result Comment: [11/26/2016] [facility] 13Result Comment: [11/26/2016] [facility] 14Result Comment: [11/26/2016] [facility] 15Result Comment: [11/26/2016] [facility] 16Result Comment: [11/26/2016] [facility] 17Result Comment: [11/26/2016] [facility] 18Result Comment: [11/26/2016] [facility] 19Result Comment: [11/26/2016] [facility] 20Result Comment: [11/26/2016] [facility] 21Result Comment: [11/26/2016] [facility] 22Result Comment: [11/26/2016] [facility] 23Result Comment: [11/26/2016] [facility] 24Result Comment: [11/26/2016] [facility] 25Result Comment: [11/26/2016] [facility] 26Result Comment: [11/26/2016] [facility] 27Result Comment: [11/26/2016] [facility] 28Result Comment: [11/26/2016] [facility] 29Result Comment: [11/26/2016] [facility] 30Result Comment: [11/26/2016] [facility] 31Result Comment: [11/26/2016] [facility] 32Result Comment: [11/26/2016] [facility] 33Result Comment: [11/26/2016] [facility] Medications ferrous sulfate 325 mg oral [...] 1 Active Vitamin D deficiency(Confirmed) Active 1Thoracic Results Orders for Microbiology Reports Name Date Urine Culture (URINE CULTURE) 10/02/19 Microbiology Reports TEST:Urine Culture STATUS:Unauthenticated BODY SITE: SOURCE:URINE COLLECTED DATE/TIME:10/02/19 7:07 AM Urine Culture SPECIMEN DESCRIPTION : URINE SPECIAL REQUESTS : NONE Reflexed from [id number] REPORT STATUS : PRELIMINARY REPORT Social History Social History Type Response Smoking Status Never smoker entered on: 10/24/17 Sex
--- OUTSIDE RECORDS SUMMARY | 2024-05-20 07:36 | XMS_ITS | Continuity of Care Document ---
Author Organization [facility] Address [address] [place] [address]- Care Team Providers Care Bridge Inspector Name Role Phone Karthik HENLEY, Isaiah Douglas Primary Care Physician [place] [facility] [place] - 03/16/23 [facility] [address] [place] [address] Allergies, Adverse Reactions, Alerts Substance Reaction Severity Status codeine 1 Surgical adhesive ta pe itching Active Adhesive Bandage 2 Rash Active riTUXimab 3 Severe Active 1hives 2surgical tape allergy as per family 3developed anaphylaxis with throat closure sensation and facial swelling needed brief epinephrine drip Immunizations Given and Recorded Vaccine Date Status Refusal Reason tetanus-diphtheria toxoids (Td) 1 08/15/22 Given [id number] bivalent booster vax 07/05/22 Recorded influenza virus [...] Given Parent Or Guardian Refuses 1Result Comment: [id number] 2Result Comment: [facility] [place] 3Result Comment: [facility]-[id number] 4Location History: [facility] [place] 5Result Comment: [11/26/2016] [facility] 6Result Comment: [11/26/2016] [facility] 7Result Comment: [11/26/2016] [facility] 8Result Comment: [11/26/2016] [facility] 9Result Comment: [11/26/2016] [facility] 10Result Comment: [11/26/2016] [facility] 11Result Comment: [11/26/2016] [facility] 12Result Comment: [11/26/2016] [facility] 13Result Comment: [11/26/2016] [facility] 14Result Comment: [11/26/2016] [facility] 15Result Comment: [11/26/2016] [facility] 16Result Comment: [11/26/2016] [facility] 17Result Comment: [11/26/2016] [facility] 18Result Comment: [11/26/2016] [facility] 19Result Comment: [11/26/2016] [facility] 20Result Comment: [11/26/2016] [facility] 21Result Comment: [11/26/2016] [facility] 22Result Comment: [11/26/2016] [facility] 23Result Comment: [11/26/2016] [facility] 24Result Comment: [11/26/2016] [facility] 25Result Comment: [11/26/2016] [facility] 26Result Comment: [11/26/2016] [facility] 27Result Comment: [11/26/2016] [facility] 28Result Comment: [11/26/2016] [facility] 29Result Comment: [11/26/2016] [facility] 30Result Comment: [11/26/2016] [facility] 31Result Comment: [11/26/2016] [facility] 32Result Comment: [11/26/2016] [facility] 33Result Comment: [11/26/2016] [facility] 34Result Comment: [11/26/2016] [facility] 35Result Comment: [11/26/2016] [facility] Medications Budesonide 1 mg, 1mg/2ml, Refills [...] Team Personnel Name: Margaux Vivas RN Position: [facility] RN Member Role: Primary Care Nurse Name: Live Leyva MD Position: [facility] Physician -Physician Practices Member Role: Lifetime Consulting Physician Name: Jeanmarie Lopez MD Position: [facility] Renal MD Member Role: Lifetime Consulting Physician Address: Address: [address] [facility], [address] [place] [address]- Name: Lashonda Clifford Position: [facility] Outreach Member Role: Lifetime Consulting Physician Name: Isaiah Angeles MD Position: [facility] Physician - Primary Care Member Role: PCP Address: Address: [address] [place] [address]- Name: Annalise Lara RN Position: [facility] RN Member Role: Primary Care Nurse Name: Mark Wilkes MD Position: [facility] Renal MD Member Role: Lifetime Consulting Physician Address: Address: [address] [facility] [place] [address]- Name: Bibiana Treviño RN Position: [facility] RN Member Role: Primary Care Nurse Care Team Related Persons Name: CLAUDETTE MILLERE Address: [place] [phone] Name: MIRA MILLER Address: [address] [phone] Name: AKASHMIRA CARTY Address: [address] [phone] Name: AKASHMIRA CARTY Address: [address] [phone] Name: MIRA MILLER Address: [address] [phone] Name: AKASHMIRA CARTY Address: [address] [id number] Name: MIRA MILLER Address: [address] [id number] Name: PRATEEK MILLER Address: [address] [address] Name: BELEN MILLER Address: [address] [address] Name: BELEN MILLER Address: [address] [address]
--- OUTSIDE RECORDS SUMMARY | 2024-05-20 07:36 | XMS_ITS | Continuity of Care Document ---
Author Organization [facility] Address [address] [place] [address]- Care Team Providers Care Repair Tech Name Role Phone Karthik HENLEY, Isaiah Douglas Primary Care Physician [place] [facility] [place]23 - 02/14/23 [facility] Adult [address] [place] [address]- Allergies, Adverse Reactions, Alerts Substance Reaction Severity Status codeine 1 Surgical adhesive ta pe itching Active Adhesive Bandage 2 Rash Active riTUXimab 3 Severe Active 1hives 2surgical tape allergy as per family 3developed anaphylaxis with throat closure sensation and facial swelling needed brief epinephrine drip Immunizations Given and Recorded Vaccine Date Status Refusal Reason tetanus-diphtheria toxoids (Td) 1 08/15/22 Given [id number] bivalent booster vax 07/05/22 Recorded influenza virus [...] Given Parent Or Guardian Refuses 1Result Comment: [id number] 2Result Comment: [facility] [place] 3Result Comment: [facility]-[id number] 4Location History: [facility] [place] 5Result Comment: [11/26/2016] [facility] 6Result Comment: [11/26/2016] [facility] 7Result Comment: [11/26/2016] [facility] 8Result Comment: [11/26/2016] [facility] 9Result Comment: [11/26/2016] [facility] 10Result Comment: [11/26/2016] [facility] 11Result Comment: [11/26/2016] [facility] 12Result Comment: [11/26/2016] [facility] 13Result Comment: [11/26/2016] [facility] 14Result Comment: [11/26/2016] [facility] 15Result Comment: [11/26/2016] [facility] 16Result Comment: [11/26/2016] [facility] 17Result Comment: [11/26/2016] [facility] 18Result Comment: [11/26/2016] [facility] 19Result Comment: [11/26/2016] [facility] 20Result Comment: [11/26/2016] [facility] 21Result Comment: [11/26/2016] [facility] 22Result Comment: [11/26/2016] [facility] 23Result Comment: [11/26/2016] [facility] 24Result Comment: [11/26/2016] [facility] 25Result Comment: [11/26/2016] [facility] 26Result Comment: [11/26/2016] [facility] 27Result Comment: [11/26/2016] [facility] 28Result Comment: [11/26/2016] [facility] 29Result Comment: [11/26/2016] [facility] 30Result Comment: [11/26/2016] [facility] 31Result Comment: [11/26/2016] [facility] 32Result Comment: [11/26/2016] [facility] 33Result Comment: [11/26/2016] [facility] 34Result Comment: [11/26/2016] [facility] 35Result Comment: [11/26/2016] [facility] Medications Budesonide 1 mg, 1mg/2ml, Refills [...] Member Role: Lifetime Consulting Physician Address: Address: [address] [place] [address], [address] [facility] [place] [address]- Name: Lashonda Clifford Position: [facility] Outreach Member Role: Lifetime Consulting Physician Name: Isaiah Angeles MD Position: [facility] Physician - Primary Care Member Role: PCP Address: Address: [address] [place] [address]- Name: Annalise Lara RN Position: S RN Member Role: Primary Care Nurse Name: Mark Wilkes MD Position: S Renal MD Member Role: Lifetime Consulting Physician Address: Address: [address] [place] [address] [facility] [address] Name: Bibiana Treviño RN Position: S RN Member Role: Primary Care Nurse Care Team Related Persons Name: MIRA MILLER Address: [place] [phone] Name: MIRA MILLER Address: [place] [phone] Name: MIRA MILLER Address: [place] [phone] Name: MIRA MILLER Address: [place] [phone] Name: MIRA MILLER Address: [place] [phone] Name: ANGELA MIRA Address: [place] [phone] Name: MIRA MILLER Address: [place] [phone] Name: PRATEEK MILLER Address: [address] [address] Name: BELEN MILLER Address: [address] [address] Name: BELEN MILLER Address: [address] [address]
--- OUTSIDE RECORDS SUMMARY | 2024-05-20 07:36 | XMS_ITS | Continuity of Care Document ---
Author Organization [facility] Address [address] [facility] [place] [address]- Care Team Providers Care Data Integrity Analyst Name Role Phone Karthik HENLEY, Isaiah Douglas Primary Care Physician Encounter 08/23/20 - 08/30/20 [facility] [address], [address] [place] [address]- Attending Physician: Ama Gilman MD Admitting Physician: [...] Parent Or Guardian Refuses 1Result Comment: [facility]-[id number] 2Location History: [facility] [place] 3Result Comment: [11/26/2016] [facility] 4Result Comment: [11/26/2016] [facility] 5Result Comment: [11/26/2016] [facility] 6Result Comment: [11/26/2016] [facility] 7Result Comment: [11/26/2016] [facility] 8Result Comment: [11/26/2016] [facility] 9Result Comment: [11/26/2016] [facility] 10Result Comment: [11/26/2016] [facility] 11Result Comment: [11/26/2016] [facility] 12Result Comment: [11/26/2016] [facility] 13Result Comment: [11/26/2016] [facility] 14Result Comment: [11/26/2016] [facility] 15Result Comment: [11/26/2016] [facility] 16Result Comment: [11/26/2016] [facility] 17Result Comment: [11/26/2016] [facility] 18Result Comment: [11/26/2016] [facility] 19Result Comment: [11/26/2016] [facility] 20Result Comment: [11/26/2016] [facility] 21Result Comment: [11/26/2016] [facility] 22Result Comment: [11/26/2016] [facility] 23Result Comment: [11/26/2016] [facility] 24Result Comment: [11/26/2016] [facility] 25Result Comment: [11/26/2016] [facility] 26Result Comment: [11/26/2016] [facility] 27Result Comment: [11/26/2016] [facility] 28Result Comment: [11/26/2016] [facility] 29Result Comment: [11/26/2016] [facility] 30Result Comment: [11/26/2016] [facility] 31Result Comment: [11/26/2016] [facility] 32Result Comment: [11/26/2016] [facility] 33Result Comment: [11/26/2016] [facility] Medications carvedilol 12.5 mg oral tablet [...]
--- OUTSIDE RECORDS SUMMARY | 2024-05-20 07:36 | XMS_ITS | Continuity of Care Document ---
Author Organization [facility] ter Address [address] [place] [address]- Care Team Providers Care Inspector Returned Materials Name Role Phone Karthik HENLEY, Isaiah Douglas Primary Care Physician [phone] [place] [facility] [place](s[place] 09/02/19 - 09/09/[address] [address] [facility] Attending Physician: Ama Gilman MD Allergies, Adverse [...] Given Parent Or Guardian Refuses 1Result Comment: [facility]-[id number] 2Location History: [facility] [place] 3Result Comment: [11/26/2016] [facility] 4Result Comment: [11/26/2016] [facility] 5Result Comment: [11/26/2016] [facility] 6Result Comment: [11/26/2016] [facility] 7Result Comment: [11/26/2016] [facility] 8Result Comment: [11/26/2016] [facility] 9Result Comment: [11/26/2016] [facility] 10Result Comment: [11/26/2016] [facility] 11Result Comment: [11/26/2016] [facility] 12Result Comment: [11/26/2016] [facility] 13Result Comment: [11/26/2016] [facility] 14Result Comment: [11/26/2016] [facility] 15Result Comment: [11/26/2016] [facility] 16Result Comment: [11/26/2016] [facility] 17Result Comment: [11/26/2016] [facility] 18Result Comment: [11/26/2016] [facility] 19Result Comment: [11/26/2016] [facility] 20Result Comment: [11/26/2016] [facility] 21Result Comment: [11/26/2016] [facility] 22Result Comment: [11/26/2016] [facility] 23Result Comment: [11/26/2016] [facility] 24Result Comment: [11/26/2016] [facility] 25Result Comment: [11/26/2016] [facility] 26Result Comment: [11/26/2016] [facility] 27Result Comment: [11/26/2016] [facility] 28Result Comment: [11/26/2016] [facility] 29Result Comment: [11/26/2016] [facility] 30Result Comment: [11/26/2016] [facility] 31Result Comment: [11/26/2016] [facility] 32Result Comment: [11/26/2016] [facility] 33Result Comment: [11/26/2016] [facility] Medications ferrous sulfate 325 mg oral [...]
--- OUTSIDE RECORDS SUMMARY | 2024-05-20 07:36 | XMS_ITS | Continuity of Care Document ---
Author Organization [facility] Address [address] [place] [address]- Care Team Providers Care Maturity Checker Name Role Phone Karthik HENLEY, Isaiah Douglas Primary Care Physician Encounter [facility] Date(s): 03/08/20 - 04/07/20 [facility] [place] Adult [address] [place] [address]- [facility] Allergies, Adverse Reactions, Alerts Substance Reaction Severity Status codeine itching Active Adhesive Bandage Rash Active Immunizations Given and Recorded Vaccine Date Status Refusal Reason influenza virus vaccine, inactivated 1 05/20/19 Gi lbiby influenza virus vaccine, inactivated 2 07/06/18 Re [...] Refuses 1Result Comment: [facility]-[id number] 2Location History: [facility] [place] 3Result Comment: [11/26/2016] [facility] 4Result Comment: [11/26/2016] [facility] 5Result Comment: [11/26/2016] [facility] 6Result Comment: [11/26/2016] [facility] 7Result Comment: [11/26/2016] [facility] 8Result Comment: [11/26/2016] [facility] 9Result Comment: [11/26/2016] [facility] 10Result Comment: [11/26/2016] [facility] 11Result Comment: [11/26/2016] [facility] 12Result Comment: [11/26/2016] [facility] 13Result Comment: [11/26/2016] [facility] 14Result Comment: [11/26/2016] [facility] 15Result Comment: [11/26/2016] [facility] 16Result Comment: [11/26/2016] [facility] 17Result Comment: [11/26/2016] [facility] 18Result Comment: [11/26/2016] [facility] 19Result Comment: [11/26/2016] [facility] 20Result Comment: [11/26/2016] [facility] 21Result Comment: [11/26/2016] [facility] 22Result Comment: [11/26/2016] [facility] 23Result Comment: [11/26/2016] [facility] 24Result Comment: [11/26/2016] [facility] 25Result Comment: [11/26/2016] [facility] 26Result Comment: [11/26/2016] [facility] 27Result Comment: [11/26/2016] [facility] 28Result Comment: [11/26/2016] [facility] 29Result Comment: [11/26/2016] [facility] 30Result Comment: [11/26/2016] [facility] 31Result Comment: [11/26/2016] [facility] 32Result Comment: [11/26/2016] [facility] 33Result Comment: [11/26/2016] [facility] Medications acetaminophen-oxyCODONE 325 mg-5 mg oral [...]
--- OUTSIDE RECORDS SUMMARY | 2024-05-20 07:36 | XMS_ITS | Continuity of Care Document ---
Author Organization [facility] Address [address] [place] [address]- Care Team Providers Care Government Services Professional Name Role Phone Karthik HENLEY, Isaiah Douglas Primary Care Physician [phone] Encounter [facility] Date(s): 04/07/24 - 05/07/24 [facility] [address] [place] [address]- Allergies, Adverse Reactions, Alerts Substance Reaction Severity [...] corded tetanus-diphtheria toxoids (Td) 10 08/15/22 Given [id number] bivalent booster vax 07/05/22 Recorded SARS-CoV-2 (COVID-19) [...] Comment: [facility] [place] 2Result Comment: [facility]-[id number] 3Location History: [facility] [place] 4Result Comment: [11/26/2016] [facility] 5Result Comment: [11/26/2016] [facility] 6Result Comment: [11/26/2016] [facility] 7Result Comment: [11/26/2016] [facility] 8Result Comment: [11/26/2016] [facility] 9Result Comment: [11/26/2016] [facility] 10Result Comment: [id number] 11Result Comment: [11/26/2016] [facility] 12Result Comment: [11/26/2016] [facility] 13Result Comment: [11/26/2016] [facility] 14Result Comment: [11/26/2016] [facility] 15Result Comment: [11/26/2016] [facility] 16Result Comment: [11/26/2016] [facility] 17Result Comment: [11/26/2016] [facility] 18Result Comment: [11/26/2016] [facility] 19Result Comment: [11/26/2016] [facility] 20Result Comment: [11/26/2016] [facility] 21Result Comment: [11/26/2016] [facility] 22Result Comment: [11/26/2016] [facility] 23Result Comment: [11/26/2016] [facility] 24Result Comment: [11/26/2016] [facility] 25Result Comment: [11/26/2016] [facility] 26Result Comment: [11/26/2016] [facility] 27Result Comment: [11/26/2016] [facility] 28Result Comment: [11/26/2016] [facility] 29Result Comment: [11/26/2016] [facility] 30Result Comment: [11/26/2016] [facility] 31Result Comment: [11/26/2016] [facility] 32Result Comment: [11/26/2016] [facility] 33Result Comment: [11/26/2016] [facility] 34Result Comment: [11/26/2016] [facility] 35Result Comment: [11/26/2016] [facility] Medications [...] Team Personnel Name: Live Leyva MD Position: [facility] Physician -Physician Practices Member Role: Lifetime Consulting Physician Name: Jeanmarie Lopez MD Position: [facility] Renal MD Member Role: Lifetime Consulting Physician Address: Address: [address] [place] [address] [address] [place] [address]- Name: Lashonda Clifford Position: [facility] Outreach Member Role: Lifetime Consulting Physician Name: Tiera Wadsworth RN Position: [facility] RN Member Role: Primary Care Nurse Name: John Daivla DO Position: [facility] Renal MD Member Role: Lifetime Consulting Physician Address: Address: [address] [facility] [place] [address]- [place] Name: Krathik HENLEY, Isaiah Douglas Position: [facility] Physician - Primary Care Member Role: PCP Address: Address: [address] [place] [address]- [place] Name: Annalise Laar RN Position: [facility] RN Member Role: Primary Care Nurse Name: Mark Wilkes MD Position: [facility] Renal MD Member Role: Lifetime Consulting Physician Address: Address: [address] [place] [address] [facility] [place] [address]- [place] Name: Bibiana Treviño RN Position: [facility] RN Member Role: Primary Care Nurse Care Team Related Persons Name: MIRA MILLER Address: [place] Address: home [address] [place] [address] [place] Name: MIRA MILLER Address: home [address] [place] [id number] Name: PRATEEK MILELR Address: home [address] [place] [address] Name: BELEN MILLER Address: home [address] [place] [address] Name: BELEN MILLER Address: home [address] [place] [address]
--- OUTSIDE RECORDS SUMMARY | 2024-05-20 07:36 | XMS_ITS | Continuity of Care Document ---
Author Organization [facility] Address [address] [place] [address]- Care Team Providers Care Programmer Analyst Name Role Phone Karthik HENLEY, Isaiah Douglas Primary Care Physician [place] [facility] [place] 12[place]20 - 01/21/21 [facility] [address] [place] [address]- Allergies, Adverse Reactions, Alerts Substance Reaction Severity [...] Refuses 1Result Comment: [id number] 2Location History: [facility] [place] 3Result Comment: [11/26/2016] [facility] 4Result Comment: [11/26/2016] [facility] 5Result Comment: [11/26/2016] [facility] 6Result Comment: [11/26/2016] [facility] 7Result Comment: [11/26/2016] [facility] 8Result Comment: [11/26/2016] [facility] 9Result Comment: [11/26/2016] [facility] 10Result Comment: [11/26/2016] [facility] 11Result Comment: [11/26/2016] [facility] 12Result Comment: [11/26/2016] [facility] 13Result Comment: [11/26/2016] [facility] 14Result Comment: [11/26/2016] [facility] 15Result Comment: [11/26/2016] [facility] 16Result Comment: [11/26/2016] [facility] 17Result Comment: [11/26/2016] [facility] 18Result Comment: [11/26/2016] [facility] 19Result Comment: [11/26/2016] [facility] 20Result Comment: [11/26/2016] [facility] 21Result Comment: [11/26/2016] [facility] 22Result Comment: [11/26/2016] [facility] 23Result Comment: [11/26/2016] [facility] 24Result Comment: [11/26/2016] [facility] 25Result Comment: [11/26/2016] [facility] 26Result Comment: [11/26/2016] [facility] 27Result Comment: [11/26/2016] [facility] 28Result Comment: [11/26/2016] [facility] 29Result Comment: [11/26/2016] [facility] 30Result Comment: [11/26/2016] [facility] 31Result Comment: [11/26/2016] [facility] 32Result Comment: [11/26/2016] [facility] 33Result Comment: [11/26/2016] [facility] Medications lidocaine 4% topical film 1 [...]
--- OUTSIDE RECORDS SUMMARY | 2024-05-20 07:36 | XMS_ITS | Continuity of Care Document ---
Author Organization [facility] Address [address] [place] [address]- Care Team Providers Care Outside Machinist Name Role Phone Karthik HENLEY, Isaiah Douglas Primary Care Physician [phone] Encounter [facility] Date(s): 11/29/20 - 12/29/20 [facility] [address] [place] [address] Allergies, Adverse Reactions, Alerts Substance Reaction Severity [...] 1Result Comment: [id number] 2Location History: [facility] [place] 3Result Comment: [11/26/2016] [facility] 4Result Comment: [11/26/2016] [facility] 5Result Comment: [11/26/2016] [facility] 6Result Comment: [11/26/2016] [facility] 7Result Comment: [11/26/2016] [facility] 8Result Comment: [11/26/2016] [facility] 9Result Comment: [11/26/2016] [facility] 10Result Comment: [11/26/2016] [facility] 11Result Comment: [11/26/2016] [facility] 12Result Comment: [11/26/2016] [facility] 13Result Comment: [11/26/2016] [facility] 14Result Comment: [11/26/2016] [facility] 15Result Comment: [11/26/2016] [facility] 16Result Comment: [11/26/2016] [facility] 17Result Comment: [11/26/2016] [facility] 18Result Comment: [11/26/2016] [facility] 19Result Comment: [11/26/2016] [facility] 20Result Comment: [11/26/2016] [facility] 21Result Comment: [11/26/2016] [facility] 22Result Comment: [11/26/2016] [facility] 23Result Comment: [11/26/2016] [facility] 24Result Comment: [11/26/2016] [facility] 25Result Comment: [11/26/2016] [facility] 26Result Comment: [11/26/2016] [facility] 27Result Comment: [11/26/2016] [facility] 28Result Comment: [11/26/2016] [facility] 29Result Comment: [11/26/2016] [facility] 30Result Comment: [11/26/2016] [facility] 31Result Comment: [11/26/2016] [facility] 32Result Comment: [11/26/2016] [facility] 33Result Comment: [11/26/2016] [facility] lidocaine 4% topical film 1 [...]
--- OUTSIDE RECORDS SUMMARY | 2024-05-20 07:36 | XMS_ITS | Continuity of Care Document ---
Author Organization [facility]ain Ethan lt Address [address] [place] [address]- Care Team Providers Care Court Bailiff Or Sheriff Name Role Phone Karthik HENLEY, Isaiah Douglas Primary Care Physician [facility] Date[facility] 03[facility]28[facility]20 - 04/27/20 [facility] [place] Adult [address] [place] [address]- [facility] Allergies, Adverse Reactions, Alerts Substance [...] Refuses 1Result Comment: [facility]-[id number] 2Location History: [facility] 3Result Comment: [11/26/2016] [facility] 4Result Comment: [11/26/2016] [facility] 5Result Comment: [11/26/2016] [facility] 6Result Comment: [11/26/2016] [facility] 7Result Comment: [11/26/2016] [facility] 8Result Comment: [11/26/2016] [facility] 9Result Comment: [11/26/2016] [facility] 10Result Comment: [11/26/2016] [facility] 11Result Comment: [11/26/2016] [facility] 12Result Comment: [11/26/2016] [facility] 13Result Comment: [11/26/2016] [facility] 14Result Comment: [11/26/2016] [facility] 15Result Comment: [11/26/2016] [facility] 16Result Comment: [11/26/2016] [facility] 17Result Comment: [11/26/2016] [facility] 18Result Comment: [11/26/2016] [facility] 19Result Comment: [11/26/2016] [facility] 20Result Comment: [11/26/2016] [facility] 21Result Comment: [11/26/2016] [facility] 22Result Comment: [11/26/2016] [facility] 23Result Comment: [11/26/2016] [facility] 24Result Comment: [11/26/2016] [facility] 25Result Comment: [11/26/2016] [facility] 26Result Comment: [11/26/2016] [facility] 27Result Comment: [11/26/2016] [facility] 28Result Comment: [11/26/2016] [facility] 29Result Comment: [11/26/2016] [facility] 30Result Comment: [11/26/2016] [facility] 31Result Comment: [11/26/2016] [facility] 32Result Comment: [11/26/2016] [facility] 33Result Comment: [11/26/2016] [facility] Medications Flovent HFA 110 mcg/inh inhalation [...]
--- OUTSIDE RECORDS SUMMARY | 2024-05-20 07:36 | XMS_ITS | Continuity of Care Document ---
Author Organization [facility] Address [address] [place] [id number]- Care Team Providers Care Epic Ambulatory Specialists Name Role Phone Karthik HENLEY, Isaiah Douglas Primary Care Physician [phone] [facility] Date(s): 09/06/20 - 10/06/20 [facility] [address] [place] [id number] Allergies, Adverse Reactions, Alerts [...] Refuses 1Result Comment: [facility]-[id number] 2Location History: [facility] [place] 3Result Comment: [11/26/2016] [facility] 4Result Comment: [11/26/2016] [facility] 5Result Comment: [11/26/2016] [facility] 6Result Comment: [11/26/2016] [facility] 7Result Comment: [11/26/2016] [facility] 8Result Comment: [11/26/2016] [facility] 9Result Comment: [11/26/2016] [facility] 10Result Comment: [11/26/2016] [facility] 11Result Comment: [11/26/2016] [facility] 12Result Comment: [11/26/2016] [facility] 13Result Comment: [11/26/2016] [facility] 14Result Comment: [11/26/2016] [facility] 15Result Comment: [11/26/2016] [facility] 16Result Comment: [11/26/2016] [facility] 17Result Comment: [11/26/2016] [facility] 18Result Comment: [11/26/2016] [facility] 19Result Comment: [11/26/2016] [facility] 20Result Comment: [11/26/2016] [facility] 21Result Comment: [11/26/2016] [facility] 22Result Comment: [11/26/2016] [facility] 23Result Comment: [11/26/2016] [facility] 24Result Comment: [11/26/2016] [facility] 25Result Comment: [11/26/2016] [facility] 26Result Comment: [11/26/2016] [facility] 27Result Comment: [11/26/2016] [facility] 28Result Comment: [11/26/2016] [facility] 29Result Comment: [11/26/2016] [facility] 30Result Comment: [11/26/2016] [facility] 31Result Comment: [11/26/2016] [facility] 32Result Comment: [11/26/2016] [facility] 33Result Comment: [11/26/2016] [facility] Medications carvedilol 12.5 mg oral tablet [...]
--- OUTSIDE RECORDS SUMMARY | 2024-05-20 07:36 | XMS_ITS | Continuity of Care Document ---
Author Organization [facility] Iain Ethan lt Address [address] [place] [address]- Care Team Providers Care Licensed Architect Name Role Phone Karthik HENLEY, Isaiah Douglas Primary Care Physician [facility] Date[facility]s): 09/06/20 - 10/06/20 [facility] Adult [address] [place] [address]- Allergies, Adverse Reactions, Alerts Substance Reaction Severity [...] Refuses 1Result Comment: [facility]-[id number] 2Location History: [facility] 3Result Comment: [11/26/2016] [facility] 4Result Comment: [11/26/2016] [facility] 5Result Comment: [11/26/2016] [facility] 6Result Comment: [11/26/2016] [facility] 7Result Comment: [11/26/2016] [facility] 8Result Comment: [11/26/2016] [facility] 9Result Comment: [11/26/2016] [facility] 10Result Comment: [11/26/2016] [facility] 11Result Comment: [11/26/2016] [facility] 12Result Comment: [11/26/2016] [facility] 13Result Comment: [11/26/2016] [facility] 14Result Comment: [11/26/2016] [facility] 15Result Comment: [11/26/2016] [facility] 16Result Comment: [11/26/2016] [facility] 17Result Comment: [11/26/2016] [facility] 18Result Comment: [11/26/2016] [facility] 19Result Comment: [11/26/2016] [facility] 20Result Comment: [11/26/2016] [facility] 21Result Comment: [11/26/2016] [facility] 22Result Comment: [11/26/2016] [facility] 23Result Comment: [11/26/2016] [facility] 24Result Comment: [11/26/2016] [facility] 25Result Comment: [11/26/2016] [facility] 26Result Comment: [11/26/2016] [facility] 27Result Comment: [11/26/2016] [facility] 28Result Comment: [11/26/2016] [facility] 29Result Comment: [11/26/2016] [facility] 30Result Comment: [11/26/2016] [facility] 31Result Comment: [11/26/2016] [facility] 32Result Comment: [11/26/2016] [facility] 33Result Comment: [11/26/2016] [facility] Medications carvedilol 12.5 mg oral tablet [...]
--- OUTSIDE RECORDS SUMMARY | 2024-05-20 07:36 | XMS_ITS | Continuity of Care Document ---
Author Organization [facility] Address [address] [place] [address]- Care Team Providers Care Receptionist Airline Lounge Name Role Phone Karthik HENLEY, Isaiah Douglas Primary Care Physician [facility] Date(s): 05/02/22 - 06/01/22 [facility] [address] [place] [address]- Allergies, Adverse Reactions, Alerts Substance Reaction Severity [...] Parent Or Guardian Refuses 1Result Comment: [facility]-[id number] 2Location History: [facility] 3Result Comment: [11/26/2016] [facility] 4Result Comment: [11/26/2016] [facility] 5Result Comment: [11/26/2016] [facility] 6Result Comment: [11/26/2016] [facility] 7Result Comment: [11/26/2016] [facility] 8Result Comment: [11/26/2016] [facility] 9Result Comment: [11/26/2016] [facility] 10Result Comment: [11/26/2016] [facility] 11Result Comment: [11/26/2016] [facility] 12Result Comment: [11/26/2016] [facility] 13Result Comment: [11/26/2016] [facility] 14Result Comment: [11/26/2016] [facility] 15Result Comment: [11/26/2016] [facility] 16Result Comment: [11/26/2016] [facility] 17Result Comment: [11/26/2016] [facility] 18Result Comment: [11/26/2016] [facility] 19Result Comment: [11/26/2016] [facility] 20Result Comment: [11/26/2016] [facility] 21Result Comment: [11/26/2016] [facility] 22Result Comment: [11/26/2016] [facility] 23Result Comment: [11/26/2016] [facility] 24Result Comment: [11/26/2016] [facility] 25Result Comment: [11/26/2016] [facility] 26Result Comment: [11/26/2016] [facility] 27Result Comment: [11/26/2016] [facility] 28Result Comment: [11/26/2016] [facility] 29Result Comment: [11/26/2016] [facility] 30Result Comment: [11/26/2016] [facility] 31Result Comment: [11/26/2016] [facility] 32Result Comment: [11/26/2016] [facility] 33Result Comment: [11/26/2016] [facility] Medications Flovent 110 mcg Inhaler HFA [...] Name: Karthik HENLEY, Isaiah Douglas Address: Address: [address] [place] [id number]
--- OUTSIDE RECORDS SUMMARY | 2024-05-20 07:36 | XMS_ITS | Continuity of Care Document ---
Author Organization [facility] Ethan lt Address [address] [place] [address]- Care Team Providers Care Gas Dispenser Name Role Phone Karthik HENLEY, Isaiah Douglas Primary Care Physician Encounter [facility] Date(s): 12/08/21 - 01/07/22 [facility] Adult [address] [place] [address]- Allergies, Adverse Reactions, Alerts Substance Reaction Severity [...] [facility]-[id number] 2Location History: [facility] 3Result Comment: [11/26/2016] [facility] 4Result Comment: [11/26/2016] [facility] 5Result Comment: [11/26/2016] [facility] 6Result Comment: [11/26/2016] [facility] 7Result Comment: [11/26/2016] [facility] 8Result Comment: [11/26/2016] [facility] 9Result Comment: [11/26/2016] [facility] 10Result Comment: [11/26/2016] [facility] 11Result Comment: [11/26/2016] [facility] 12Result Comment: [11/26/2016] [facility] 13Result Comment: [11/26/2016] [facility] 14Result Comment: [11/26/2016] [facility] 15Result Comment: [11/26/2016] [facility] 16Result Comment: [11/26/2016] [facility] 17Result Comment: [11/26/2016] [facility] 18Result Comment: [11/26/2016] [facility] 19Result Comment: [11/26/2016] [facility] 20Result Comment: [11/26/2016] [facility] 21Result Comment: [11/26/2016] [facility] 22Result Comment: [11/26/2016] [facility] 23Result Comment: [11/26/2016] [facility] 24Result Comment: [11/26/2016] [facility] 25Result Comment: [11/26/2016] [facility] 26Result Comment: [11/26/2016] [facility] 27Result Comment: [11/26/2016] [facility] 28Result Comment: [11/26/2016] [facility] 29Result Comment: [11/26/2016] [facility] 30Result Comment: [11/26/2016] [facility] 31Result Comment: [11/26/2016] [facility] 32Result Comment: [11/26/2016] [facility] 33Result Comment: [11/26/2016] [facility] Medications calcium (as carbonate) 500 mg [...]
--- OUTSIDE RECORDS SUMMARY | 2024-05-20 07:36 | XMS_ITS | Continuity of Care Document ---
Author Organization [facility] Ethan lt Address [address] [place] [address]- Care Team Providers Care Road Sign Installer Name Role Phone Isaiah Angeles MD Primary Care Physician Encounter [facility] Date(s): 11/28/21 - 12/05/21 [facility] Adult [address] [place] [address]- Attending Physician: Isaiah Angeles MD Allergies, Adverse [...] Given Parent Or Guardian Refuses 1Result Comment: [facility]-[id number] 2Location History: [facility] 3Result Comment: [11/26/2016] [facility] 4Result Comment: [11/26/2016] [facility] 5Result Comment: [11/26/2016] [facility] 6Result Comment: [11/26/2016] [facility] 7Result Comment: [11/26/2016] [facility] 8Result Comment: [11/26/2016] [facility] 9Result Comment: [11/26/2016] [facility] 10Result Comment: [11/26/2016] [facility] 11Result Comment: [11/26/2016] [facility] 12Result Comment: [11/26/2016] [facility] 13Result Comment: [11/26/2016] [facility] 14Result Comment: [11/26/2016] [facility] 15Result Comment: [11/26/2016] [facility] 16Result Comment: [11/26/2016] [facility] 17Result Comment: [11/26/2016] [facility] 18Result Comment: [11/26/2016] [facility] 19Result Comment: [11/26/2016] [facility] 20Result Comment: [11/26/2016] [facility] 21Result Comment: [11/26/2016] [facility] 22Result Comment: [11/26/2016] [facility] 23Result Comment: [11/26/2016] [facility] 24Result Comment: [11/26/2016] [facility] 25Result Comment: [11/26/2016] [facility] 26Result Comment: [11/26/2016] [facility] 27Result Comment: [11/26/2016] [facility] 28Result Comment: [11/26/2016] [facility] 29Result Comment: [11/26/2016] [facility] 30Result Comment: [11/26/2016] [facility] 31Result Comment: [11/26/2016] [facility] 32Result Comment: [11/26/2016] [facility] 33Result Comment: [11/26/2016] [facility] Medications calcium (as carbonate) 500 mg [...] oldest [Reference Range]: 1 Height 155 cm (11/28/21 4:02 PM) Weight 66.6 kg (11/28/21 4:02 PM) Oxygen Saturation [94-100 %] 100 % (11/28/21 4:02 PM) Pulse Rate [55-90 bpm] 95 bpm *H* (11/28/21 4:02 PM) Body Mass Index [18.5-24.99] 27.72 *H* (11/28/21 4:02 PM) Blood Pressure [90-138/55-84 mm Hg] 108/ 69mm Hg (11/28/21 4:02 PM) Temperature [96.8-100.4 DegF] 98.6 DegF (11/28/21 4:02 PM) Mode of Delivery (Oxygen) Room air (11/28/21 4:02 PM) Blood pressure sites Arm, right (11/28/21 4:02 PM) Temperature Route Oral (11/28/21 4:02 PM) Weight Obtained Via Standing scale (11/28/21 4:02 PM) Social History Social History Type Response Smoking Status Never smoker entered on: 10/24/17 Sex
--- OUTSIDE RECORDS SUMMARY | 2024-05-20 07:36 | XMS_ITS | Continuity of Care Document ---
Author Organization [facility] Iain Ethan lt Address [address] [place] [address]- Care Team Providers Care Motors And Generators Inspector Name Role Phone Karthik HENLEY, Isaiah Douglas Primary Care Physician [facility] Date(s): 05/05/20 - 06/04/20 [facility] Adult [address] [place] [address]- [facility] Allergies, Adverse Reactions, Alerts Substance Reaction [...] Given Parent Or Guardian Refuses 1Result Comment: [facility]-[id number] 2Location History: [facility] 3Result Comment: [11/26/2016] [facility] 4Result Comment: [11/26/2016] [facility] 5Result Comment: [11/26/2016] [facility] 6Result Comment: [11/26/2016] [facility] 7Result Comment: [11/26/2016] [facility] 8Result Comment: [11/26/2016] [facility] 9Result Comment: [11/26/2016] [facility] 10Result Comment: [11/26/2016] [facility] 11Result Comment: [11/26/2016] [facility] 12Result Comment: [11/26/2016] [facility] 13Result Comment: [11/26/2016] [facility] 14Result Comment: [11/26/2016] [facility] 15Result Comment: [11/26/2016] [facility] 16Result Comment: [11/26/2016] [facility] 17Result Comment: [11/26/2016] [facility] 18Result Comment: [11/26/2016] [facility] 19Result Comment: [11/26/2016] [facility] 20Result Comment: [11/26/2016] [facility] 21Result Comment: [11/26/2016] [facility] 22Result Comment: [11/26/2016] [facility] 23Result Comment: [11/26/2016] [facility] 24Result Comment: [11/26/2016] [facility] 25Result Comment: [11/26/2016] [facility] 26Result Comment: [11/26/2016] [facility] 27Result Comment: [11/26/2016] [facility] 28Result Comment: [11/26/2016] [facility] 29Result Comment: [11/26/2016] [facility] 30Result Comment: [11/26/2016] [facility] 31Result Comment: [11/26/2016] [facility] 32Result Comment: [11/26/2016] [facility] 33Result Comment: [11/26/2016] [facility] Medications Flovent HFA 110 mcg/inh inhalation [...] 4 Refills, Maintenance, 02/26/20 12:05:00 EDT, Tablet, [facility], 153, cm, 02/26/20 12:03:00 EDT, Height, 62, kg, 01/02/20 11:03:00 EDT, Dry Weight Start Date: 02/26/20 Status: Ordered lisinopril 20 mg oral tablet 20 mg, 1, tablet, By Mouth, Daily, # 30 tablet, Refills 0, Tot. Refills 0, Maintenance, 05/05/20 7:46:00 EDT, Route to Pharmacy Electronically, [facility], 153, cm, 05/05/20 7:32:00 EDT, [...]
--- OUTSIDE RECORDS SUMMARY | 2024-05-20 07:36 | XMS_ITS | Continuity of Care Document ---
Author Organization [facility] ter Address [address] [place] [address]- Care Team Providers Care Incident Response Consultant Name Role Phone Karthik HENLEY, Isaiah Douglas Primary Care Physician Encounter [facility] Date(s): 10/10/22 - 02/16/[address] [address] Attending Physician: Alice Alonso DDS Admitting Physician: Alice Alonso DDS Allergies, Adverse Reactions, Alerts Substance Reaction Severity Status codeine 1 Surgical adhesive ta pe itching Active Adhesive Bandage 2 Rash Active riTUXimab 3 Severe Active 1hives 2surgical tape allergy as per family 3developed anaphylaxis with throat closure sensation and facial swelling needed brief epinephrine drip Immunizations Given and Recorded Vaccine Date Status Refusal Reason tetanus-diphtheria toxoids (Td) 1 08/15/22 Given [id number] bivalent booster vax 07/05/22 Recorded influenza virus [...] Given Parent Or Guardian Refuses 1Result Comment: [id number] 2Result Comment: [facility] [place] 3Result Comment: [facility]-[id number] 4Location History: [facility] [place] 5Result Comment: [11/26/2016] [facility] 6Result Comment: [11/26/2016] [facility] 7Result Comment: [11/26/2016] [facility] 8Result Comment: [11/26/2016] [facility] 9Result Comment: [11/26/2016] [facility] 10Result Comment: [11/26/2016] [facility] 11Result Comment: [11/26/2016] [facility] 12Result Comment: [11/26/2016] [facility] 13Result Comment: [11/26/2016] [facility] 14Result Comment: [11/26/2016] [facility] 15Result Comment: [11/26/2016] [facility] 16Result Comment: [11/26/2016] [facility] 17Result Comment: [11/26/2016] [facility] 18Result Comment: [11/26/2016] [facility] 19Result Comment: [11/26/2016] [facility] 20Result Comment: [11/26/2016] [facility] 21Result Comment: [11/26/2016] [facility] 22Result Comment: [11/26/2016] [facility] 23Result Comment: [11/26/2016] [facility] 24Result Comment: [11/26/2016] [facility] 25Result Comment: [11/26/2016] [facility] 26Result Comment: [11/26/2016] [facility] 27Result Comment: [11/26/2016] [facility] 28Result Comment: [11/26/2016] [facility] 29Result Comment: [11/26/2016] [facility] 30Result Comment: [11/26/2016] [facility] 31Result Comment: [11/26/2016] [facility] 32Result Comment: [11/26/2016] [facility] 33Result Comment: [11/26/2016] [facility] 34Result Comment: [11/26/2016] [facility] 35Result Comment: [11/26/2016] [facility] Medications Budesonide 1 mg, 1mg/2ml, Refills [...] recent to oldest [Reference Range]: 1 Height 152.40 cm (01/11/23 9:45 AM) Weight 64.55 kg (01/11/23 9:45 AM) Body Mass Index [18.5-24.99 kg/m2] 27.79 kg/m2 *H* (01/11/23 9:45 AM) Dry Weight 64.55 kg (01/11/23 9:45 AM) Weight Obtained Via Patient/family state d (01/11/23 9:45 AM) Dry Weight Obtained Via Patient/family s tated (01/11/23 9:45 AM) Social History Social History Type Response Smoking Status Never smoker entered on: 10/24/17 Sex Patient Care team information Care Team Personnel Name: Margaux Vivas RN Position: [facility] RN Member Role: Primary Care Nurse Name: Live Leyva MD Position: [facility] Physician -Physician Practices Member Role: Lifetime Consulting Physician Name: Jeanmarie Lopez MD Position: [facility] Renal MD Member Role: Lifetime Consulting Physician Address: Address: [address] [place] [address], [address] [facility] [place] [address]- Name: Lashonda Clifford Position: [facility] Outreach Member Role: Lifetime Consulting Physician Name: Isaiah Agneles MD Position: [facility] Physician - Primary Care Member Role: PCP Address: Address: [address] [place] [address]- [place] Name: Annalise Lara RN Position: [facility] RN Member Role: Primary Care Nurse Name: Mark Wilkes MD Position: [facility] Renal MD Member Role: Lifetime Consulting Physician Address: Address: [address] [place] [address] [facility] [place] [address]- Name: Bibiana Treviño RN Position: [facility] RN Member Role: Primary Care Nurse Care Team Related Persons Name: MIRA MILLER Address: [address] [id number] Name: RYANMIRA FOWLER Address: [address] [id number] Name: ANGELA MIRA Address: [address] [id number] Name: ANGELACLAUDETTEE Address: [address] [id number] Name: AKASHMIRA CARTY Address: [address] [id number] Name: ANGELACLAUDETTEE Address: [address] [id number] Name: AKASHMIRA CARTY Address: [address] [phone] Name: PRATEEK MILLER Address: [address] [address] Name: BELEN MILLER Address: [address] [address] Name: BELEN MILLER Address: [address] [address]
--- OUTSIDE RECORDS SUMMARY | 2024-05-20 07:36 | XMS_ITS | Continuity of Care Document ---
Author Organization [facility] [place] Ethan lt Address [address] [place] [address]- Care Team Providers Care Lock Setter Name Role Phone Karthik HENLEY, Isaiah Douglas Primary Care Physician [phone] Encounter [facility] Date(s): 01/04/23 - 02/03/23 [facility] [place] Adult [address] [place] [address]- Allergies, Adverse Reactions, Alerts Substance Reaction Severity Status codeine 1 Surgical adhesive ta pe itching Active Adhesive Bandage 2 Rash Active riTUXimab 3 Severe Active 1hives 2surgical tape allergy as per family 3developed anaphylaxis with throat closure sensation and facial swelling needed brief epinephrine drip Immunizations Given and Recorded Vaccine Date Status Refusal Reason tetanus-diphtheria toxoids (Td) 1 08/15/22 Given [id number] bivalent booster vax 07/05/22 Recorded influenza virus [...] Given Parent Or Guardian Refuses 1Result Comment: [id number] 2Result Comment: [facility] [place] 3Result Comment: [facility]-[id number] 4Location History: [facility] [place] 5Result Comment: [11/26/2016] [facility] 6Result Comment: [11/26/2016] [facility] 7Result Comment: [11/26/2016] [facility] 8Result Comment: [11/26/2016] [facility] 9Result Comment: [11/26/2016] [facility] 10Result Comment: [11/26/2016] [facility] 11Result Comment: [11/26/2016] [facility] 12Result Comment: [11/26/2016] [facility] 13Result Comment: [11/26/2016] [facility] 14Result Comment: [11/26/2016] [facility] 15Result Comment: [11/26/2016] [facility] 16Result Comment: [11/26/2016] [facility] 17Result Comment: [11/26/2016] [facility] 18Result Comment: [11/26/2016] [facility] 19Result Comment: [11/26/2016] [facility] 20Result Comment: [11/26/2016] [facility] 21Result Comment: [11/26/2016] [facility] 22Result Comment: [11/26/2016] [facility] 23Result Comment: [11/26/2016] [facility] 24Result Comment: [11/26/2016] [facility] 25Result Comment: [11/26/2016] [facility] 26Result Comment: [11/26/2016] [facility] 27Result Comment: [11/26/2016] [facility] 28Result Comment: [11/26/2016] [facility] 29Result Comment: [11/26/2016] [facility] 30Result Comment: [11/26/2016] [facility] 31Result Comment: [11/26/2016] [facility] 32Result Comment: [11/26/2016] [facility] 33Result Comment: [11/26/2016] [facility] 34Result Comment: [11/26/2016] [facility] 35Result Comment: [11/26/2016] [facility] Medications cholecalciferol 50 mcg (2000 intl [...] Team Personnel Name: Margaux Vivas RN [facility] RN Member Role: Primary Care Nurse Name: Live Leyva MD Position: [facility] Physician -Physician Practices Member Role: Lifetime Consulting Physician Name: Jeanmarie Lopez MD Position: [facility] Renal MD Member Role: Lifetime Consulting Physician Address: Address: [address] [place] [address], [facility] [address] [facility] [place], [place] [address] Name: Lashonda Clifford Position[facility] Outreach Member Role: Lifetime Consulting Physician Name: Isaiah Angeles MD Position[facility] Physician - Primary Care Member Role: PCP Address: Address: [address] [place] [address]- Name: Annalise Lara RN Position[facility] RN Member Role: Primary Care Nurse Name: Mark Wilkes MD Position: [facility] Renal MD Member Role: Lifetime Consulting Physician Address: Address: [address] [place] [address] [facility] [place] [address]- Name: Bibiana Treviño RN Position[facility] RN Member Role: Primary Care Nurse Care Team Related Persons Name: MIRA MILLER Address: home [address] [id number] Name: AKASHRICARDOJANETHMIRA Address: home [address] [phone] Name: MIRA MILLER Address: [address] [id number] Name: MIRA MILLER Address: [address] [id number] Name: MIRA MILLER Address: [address] [id number] Name: MIRA MILLER Address: [address] [id number] Name: MIRA MILLER Address: [address] [id number] Name: PRATEEK MILLER Address: [address] [address] Name: BELEN MILLER Address: [address] [address] Name: BELEN MILLER Address: [address] [address]
--- OUTSIDE RECORDS SUMMARY | 2024-05-20 07:37 | XMS_ITS | Continuity of Care Document ---
Author Organization [facility] Ethan lt Address [address] [place] [address]- Care Team Providers Care Casino Shift Manager Name Role Phone Karthik HENLEY, Isaiah Douglas Primary Care Physician Encounter [facility] Date(s): 11/14/23 - 12/14/23 [facility] Adult [address] [place] [address]- Allergies, Adverse Reactions, Alerts Substance Reaction Severity [...] corded tetanus-diphtheria toxoids (Td) 10 08/15/22 Given [id number] bivalent booster vax 07/05/22 Recorded SARS-CoV-2 (COVID-19) [...] Comment: [facility] [place] 2Result Comment: [facility]-[id number] 3Location History: [facility] [place] 4Result Comment: [11/26/2016] [facility] 5Result Comment: [11/26/2016] [facility] 6Result Comment: [11/26/2016] [facility] 7Result Comment: [11/26/2016] [facility] 8Result Comment: [11/26/2016] [facility] 9Result Comment: [11/26/2016] [facility] 10Result Comment: [id number] 11Result Comment: [11/26/2016] [facility] 12Result Comment: [11/26/2016] [facility] 13Result Comment: [11/26/2016] [facility] 14Result Comment: [11/26/2016] [facility] 15Result Comment: [11/26/2016] [facility] 16Result Comment: [11/26/2016] [facility] 17Result Comment: [11/26/2016] [facility] 18Result Comment: [11/26/2016] [facility] 19Result Comment: [11/26/2016] [facility] 20Result Comment: [11/26/2016] [facility] 21Result Comment: [11/26/2016] [facility] 22Result Comment: [11/26/2016] [facility] 23Result Comment: [11/26/2016] [facility] 24Result Comment: [11/26/2016] [facility] 25Result Comment: [11/26/2016] [facility] 26Result Comment: [11/26/2016] [facility] 27Result Comment: [11/26/2016] [facility] 28Result Comment: [11/26/2016] [facility] 29Result Comment: [11/26/2016] [facility] 30Result Comment: [11/26/2016] [facility] 31Result Comment: [11/26/2016] [facility] 32Result Comment: [11/26/2016] [facility] 33Result Comment: [11/26/2016] [facility] 34Result Comment: [11/26/2016] [facility] 35Result Comment: [11/26/2016] [facility] Medications [...] Member Role: Lifetime Consulting Physician Address: Address: [address] [place] [address] [address] [place] [address]- Name: Lashonda Clifford Position: [facility] Outreach Member Role: Lifetime Consulting Physician Name: Tiera Wadsworth RN Position: [facility] RN Member Role: Primary Care Nurse Name: John Davila DO Position: [facility] Renal MD Member Role: Lifetime Consulting Physician Address: Address: [address] [place] [address] [address] [facility] [place] [address]- [place] Name: Karthik HENLEY, Isaiah Douglas Position: [facility] Physician - Primary Care Member Role: PCP Address: Address: [address] [place] [address]- [place] Name: Annalise Lara RN Position: [facility] RN Member Role: Primary Care Nurse Name: Mark Wilkes MD Position: [facility] Renal MD Member Role: Lifetime Consulting Physician Address: Address: [address] [facility] [place] [address]- [place] Name: Bibiana Treviño RN Position: [facility] RN Member Role: Primary Care Nurse Care Team Related Persons Name: MIRA MILLER Address: [place] Address: home [address] [place] [address] Name: MIRA MILLER Address: home [address] [phone] Name: PRATEEK MILLER Address: home [address] [place] [address] Name: BELEN MILLER Address: [address] [place] [address] Name: BELEN MILLER Address: home [address] [place] [address]
--- OUTSIDE RECORDS SUMMARY | 2024-05-20 07:37 | XMS_ITS | Continuity of Care Document ---
Author Organization [facility] Ethan lt Address [address] [place] [address]- Care Team Providers Care Electronic Security Specialist Name Role Phone Karthik HENLEY, Isaiah Douglas Primary Care Physician Encounter [facility] Date(s): 01/11/23 - 02/10/23 [facility] Adult [address] [place] [address]- Allergies, Adverse Reactions, Alerts Substance Reaction Severity Status codeine 1 Surgical adhesive ta pe itching Active riTUXimab 2 Severe Active Adhesive Bandage 3 Rash Active 1hives 2developed anaphylaxis with throat closure sensation and facial swelling needed brief epinephrine drip 3surgical tape allergy as per family Immunizations Given and Recorded Vaccine Date Status Refusal Reason tetanus-diphtheria toxoids (Td) 1 08/15/22 Given [id number] bivalent booster vax 07/05/22 Recorded influenza virus [...] Given Parent Or Guardian Refuses 1Result Comment: [id number] 2Result Comment: [facility] [place] 3Result Comment: [facility]-[id number] 4Location History: [facility] [place] 5Result Comment: [11/26/2016] [facility] 6Result Comment: [11/26/2016] [facility] 7Result Comment: [11/26/2016] [facility] 8Result Comment: [11/26/2016] [facility] 9Result Comment: [11/26/2016] [facility] 10Result Comment: [11/26/2016] [facility] 11Result Comment: [11/26/2016] [facility] 12Result Comment: [11/26/2016] [facility] 13Result Comment: [11/26/2016] [facility] 14Result Comment: [11/26/2016] [facility] 15Result Comment: [11/26/2016] [facility] 16Result Comment: [11/26/2016] [facility] 17Result Comment: [11/26/2016] [facility] 18Result Comment: [11/26/2016] [facility] 19Result Comment: [11/26/2016] [facility] 20Result Comment: [11/26/2016] [facility] 21Result Comment: [11/26/2016] [facility] 22Result Comment: [11/26/2016] [facility] 23Result Comment: [11/26/2016] [facility] 24Result Comment: [11/26/2016] [facility] 25Result Comment: [11/26/2016] [facility] 26Result Comment: [11/26/2016] [facility] 27Result Comment: [11/26/2016] [facility] 28Result Comment: [11/26/2016] [facility] 29Result Comment: [11/26/2016] [facility] 30Result Comment: [11/26/2016] [facility] 31Result Comment: [11/26/2016] [facility] 32Result Comment: [11/26/2016] [facility] 33Result Comment: [11/26/2016] [facility] 34Result Comment: [11/26/2016] [facility] 35Result Comment: [11/26/2016] [facility] Medications cholecalciferol 50 mcg (2000 intl [...] Role: Lifetime Consulting Physician Address: Address: [address] [place] [address], [facility] [address] [facility] [place], [place] [address] Name: Lashonda Clifford Position: [facility] Outreach Member Role: Lifetime Consulting Physician Name: Isaiah Angeles MD Position: [facility] Physician - Primary Care Member Role: PCP Address: Address: [address] [place] [address]- Name: Annalise Lara RN Position: [facility] RN Member Role: Primary Care Nurse Name: Mark Wilkes MD Position: [facility] Renal MD Member Role: Lifetime Consulting Physician Address: Address: [address] [place] [address] [facility] [place] [address]- Name: Bibiana Treviño RN Position: [facility] RN Member Role: Primary Care Nurse Care Team Related Persons Name: MIRA MILLER Address: home [address] [address] Name: MIRA MILLER Address: [address] [address] Name: MIRA MILLER Address: [address] [phone] Name: MIRA MILLER Address: [address], [phone] Name: AKASHRICARDOJANETHMIRA Address: [address] [phone] Name: MIRA MILLER Address: [address], [phone] Name: MIRA MILLER Address: [address] [phone] Name: PRATEEK MILLER Address: [address] [address] Name: BELEN MILLER Address: [address] [address] Name: BELEN MILLER Address: [address] [address]
--- OUTSIDE RECORDS SUMMARY | 2024-05-20 07:37 | XMS_ITS | Continuity of Care Document ---
Author Organization [facility] Ethan lt Address [address] [place] [address]- Care Team Providers Care Nurse Staff Community Health Name Role Phone Karthik HENLEY, Isaiah Douglas Primary Care Physician Encounter [facility] Date(s): 07/19/20 - 08/18/20 [facility] Adult [address] [place] [address]- Allergies, Adverse Reactions, Alerts Substance Reaction Severity [...] Or Guardian Refuses 1Result Comment: [facility]-[id number] 2Location History: [facility] [place] 3Result Comment: [11/26/2016] [facility] 4Result Comment: [11/26/2016] [facility] 5Result Comment: [11/26/2016] [facility] 6Result Comment: [11/26/2016] [facility] 7Result Comment: [11/26/2016] [facility] 8Result Comment: [11/26/2016] [facility] 9Result Comment: [11/26/2016] [facility] 10Result Comment: [11/26/2016] [facility] 11Result Comment: [11/26/2016] [facility] 12Result Comment: [11/26/2016] [facility] 13Result Comment: [11/26/2016] [facility] 14Result Comment: [11/26/2016] [facility] 15Result Comment: [11/26/2016] [facility] 16Result Comment: [11/26/2016] [facility] 17Result Comment: [11/26/2016] [facility] 18Result Comment: [11/26/2016] [facility] 19Result Comment: [11/26/2016] [facility] 20Result Comment: [11/26/2016] [facility] 21Result Comment: [11/26/2016] [facility] 22Result Comment: [11/26/2016] [facility] 23Result Comment: [11/26/2016] [facility] 24Result Comment: [11/26/2016] [facility] 25Result Comment: [11/26/2016] [facility] 26Result Comment: [11/26/2016] [facility] 27Result Comment: [11/26/2016] [facility] 28Result Comment: [11/26/2016] [facility] 29Result Comment: [11/26/2016] [facility] 30Result Comment: [11/26/2016] [facility] 31Result Comment: [11/26/2016] [facility] 32Result Comment: [11/26/2016] [facility] 33Result Comment: [11/26/2016] [facility] Medications carvedilol 12.5 mg oral tablet [...]
--- OUTSIDE RECORDS SUMMARY | 2024-05-20 07:37 | XMS_ITS | Continuity of Care Document ---
Author Organization [facility] Address [address] [place] [address]- Care Team Providers Care Vice Chairman Name Role Phone Karthik HENLEY, Isaiah Douglas Primary Care Physician Encounter [facility] Date(s): 01/12/21 - 02/11/21 [facility] [address] [place] [address] Allergies, Adverse Reactions, Alerts Substance [...] Refuses 1Result Comment: [facility]-[id number] 2Location History: [facility] [place] 3Result Comment: [11/26/2016] [facility] 4Result Comment: [11/26/2016] [facility] 5Result Comment: [11/26/2016] [facility] 6Result Comment: [11/26/2016] [facility] 7Result Comment: [11/26/2016] [facility] 8Result Comment: [11/26/2016] [facility] 9Result Comment: [11/26/2016] [facility] 10Result Comment: [11/26/2016] [facility] 11Result Comment: [11/26/2016] [facility] 12Result Comment: [11/26/2016] [facility] 13Result Comment: [11/26/2016] [facility] 14Result Comment: [11/26/2016] [facility] 15Result Comment: [11/26/2016] [facility] 16Result Comment: [11/26/2016] [facility] 17Result Comment: [11/26/2016] [facility] 18Result Comment: [11/26/2016] [facility] 19Result Comment: [11/26/2016] [facility] 20Result Comment: [11/26/2016] [facility] 21Result Comment: [11/26/2016] [facility] 22Result Comment: [11/26/2016] [facility] 23Result Comment: [11/26/2016] [facility] 24Result Comment: [11/26/2016] [facility] 25Result Comment: [11/26/2016] [facility] 26Result Comment: [11/26/2016] [facility] 27Result Comment: [11/26/2016] [facility] 28Result Comment: [11/26/2016] [facility] 29Result Comment: [11/26/2016] [facility] 30Result Comment: [11/26/2016] [facility] 31Result Comment: [11/26/2016] [facility] 32Result Comment: [11/26/2016] [facility] 33Result Comment: [11/26/2016] [facility] Medications levothyroxine 125 mcg (0.125 mg) [...]
--- OUTSIDE RECORDS SUMMARY | 2024-05-20 07:37 | XMS_ITS | Continuity of Care Document ---
Author Organization [facility] Ethan lt Address [address] [place] [address]- Care Team Providers Care Slinger Sequins Name Role Phone Karthik HENLEY, Isaiah Douglas Primary Care Physician [phone] Encounter [facility] Date(s): 03/09/21 - 04/08/21 [facility] Adult [address] [place] [address]- Allergies, Adverse Reactions, Alerts Substance Reaction Severity [...] Refuses 1Result Comment: [facility]-[id number] 2Location History[facility] 3Result Comment: [11/26/2016] [facility] 4Result Comment: [11/26/2016] [facility] 5Result Comment: [11/26/2016] [facility] 6Result Comment: [11/26/2016] [facility] 7Result Comment: [11/26/2016] [facility] 8Result Comment: [11/26/2016] [facility] 9Result Comment: [11/26/2016] [facility] 10Result Comment: [11/26/2016] [facility] 11Result Comment: [11/26/2016] [facility] 12Result Comment: [11/26/2016] [facility] 13Result Comment: [11/26/2016] [facility] 14Result Comment: [11/26/2016] [facility] 15Result Comment: [11/26/2016] [facility] 16Result Comment: [11/26/2016] [facility] 17Result Comment: [11/26/2016] [facility] 18Result Comment: [11/26/2016] [facility] 19Result Comment: [11/26/2016] [facility] 20Result Comment: [11/26/2016] [facility] 21Result Comment: [11/26/2016] [facility] 22Result Comment: [11/26/2016] [facility] 23Result Comment: [11/26/2016] [facility] 24Result Comment: [11/26/2016] [facility] 25Result Comment: [11/26/2016] [facility] 26Result Comment: [11/26/2016] [facility] 27Result Comment: [11/26/2016] [facility] 28Result Comment: [11/26/2016] [facility] 29Result Comment: [11/26/2016] [facility] 30Result Comment: [11/26/2016] [facility] 31Result Comment: [11/26/2016] [facility] 32Result Comment: [11/26/2016] [facility] 33Result Comment: [11/26/2016] [facility] Medications levothyroxine 125 mcg (0.125 mg) [...]
--- OUTSIDE RECORDS SUMMARY | 2024-05-20 07:37 | XMS_ITS | Continuity of Care Document ---
Author Organization [facility] Address [address] [place] [address]- Care Team Providers Care Community Health Nursing Director Name Role Phone Karthik HENLEY, Isaiah Douglas Primary Care Physician Encounter [facility] Date(s): 10/23/19 - 12/12/[address] [address]- [facility] Attending Physician: Ama Gilman MD Admitting Physician: [...] Or Guardian Refuses 1Result Comment: [facility]-[id number] 2[facility] History[facility] 3Result Comment: [11/26/2016] [facility] 4Result Comment: [11/26/2016] [facility] 5Result Comment: [11/26/2016] [facility] 6Result Comment: [11/26/2016] [facility] 7Result Comment: [11/26/2016] [facility] 8Result Comment: [11/26/2016] [facility] 9Result Comment: [11/26/2016] [facility] 10Result Comment: [11/26/2016] [facility] 11Result Comment: [11/26/2016] [facility] 12Result Comment: [11/26/2016] [facility] 13Result Comment: [11/26/2016] [facility] 14Result Comment: [11/26/2016] [facility] 15Result Comment: [11/26/2016] [facility] 16Result Comment: [11/26/2016] [facility] 17Result Comment: [11/26/2016] [facility] 18Result Comment: [11/26/2016] [facility] 19Result Comment: [11/26/2016] [facility] 20Result Comment: [11/26/2016] [facility] 21Result Comment: [11/26/2016] [facility] 22Result Comment: [11/26/2016] [facility] 23Result Comment: [11/26/2016] [facility] 24Result Comment: [11/26/2016] [facility] 25Result Comment: [11/26/2016] [facility] 26Result Comment: [11/26/2016] [facility] 27Result Comment: [11/26/2016] [facility] 28Result Comment: [11/26/2016] [facility] 29Result Comment: [11/26/2016] [facility] 30Result Comment: [11/26/2016] [facility] 31Result Comment: [11/26/2016] [facility] 32Result Comment: [11/26/2016] [facility] 33Result Comment: [11/26/2016] [facility] Medications acetaminophen 325 mg oral tablet 650 mg, 2, tablet, By Mouth, Every 4 hours, PRN, may take 1 tablet not to exceed 4000 mg/day, # 50 tablet, Refills 1, Tot. Refills 1, Acute 12/17/19 13:02:00 EDT, as needed for pain, 11/16/19 13:00:00 EDT, Route to Pharmacy Electronically, [facility] Start Date: 11/16/19 Stop Date: 12/17/19 Status: Ordered ferrous sulfate 325 mg oral tablet 1 tablet = 325 mg, By Mouth, Daily, # 30 tablet, 0 Refills, Maintenance, 07/28/19 17:11:38 EST Start Date: 07/28/19 Status: Ordered Flovent HFA 110 mcg/inh inhalation aerosol 2 puffs, Inhalation, 2 times a day, use without spacer, swallowed (not inhaled) for treatment of eosinophilic esophagitis, # 12 Gm, 3 Refills, Maintenance, 10/27/19 17:03:00 EDT, Aerosol, [facility], 152.4, cm, 10/22/19 13:23:00 EST, He... Start Date: 10/27/19 Status: Ordered furosemide 20 mg oral tablet 20 mg, 1, tablet, By Mouth, Daily, # 30 tablet, Refills 0, Tot. Refills 0, Maintenance, 10/22/19 13:43:00 EST, Do Not Route Start Date: 10/22/19 Status: Ordered gabapentin 300 mg oral capsule 300 mg, 1, capsule, By Mouth, Daily, Refills 0, Maintenance, 10/22/19 13:27:00 EST Start Date: 10/22/19 Status: Ordered levothyroxine 125 mcg (0.125 mg) oral tablet 2 tablet = 250 mcg, By Mouth, Daily, # 180 tablet, 4 Refills, Maintenance, 11/17/19 11:59:00 EDT, Tablet, [facility], 152.4, cm, 10/22/19 13:23:00 EST, Height, 64, kg, 08/20/19 15:49:00 EST, Dry Weight Start Date: 11/17/19 Status: Ordered lisinopril 10 mg oral tablet 10 mg, 1, tablet, By Mouth, Daily, # 30 tablet, Refills 0, Tot. Refills 0, Maintenance, 10/22/19 13:42:00 EST, Do Not Route Start Date: 10/22/19 Status: Ordered PredniSONE = 15 mg, By Mouth, Daily, 0 Refills, Maintenance, [...]
--- OUTSIDE RECORDS SUMMARY | 2024-05-20 07:37 | XMS_ITS | Continuity of Care Document ---
Author Organization [facility] Address [address] [place] [address]- Care Team Providers Care Harmonica Maker Name Role Phone Karthik HENLEY, Isaiah Douglas Primary Care Physician Encounter [facility] Date(s): 03/12/23 - 04/11/23 [facility] [address] [place] [address] Allergies, Adverse Reactions, Alerts Substance Reaction Severity Status codeine 1 Surgical adhesive ta pe itching Active Adhesive Bandage 2 Rash Active riTUXimab 3 Severe Active 1hives 2surgical tape allergy as per family 3developed anaphylaxis with throat closure sensation and facial swelling needed brief epinephrine drip Immunizations Given and Recorded Vaccine Date Status Refusal Reason tetanus-diphtheria toxoids (Td) 1 08/15/22 Given [id number] bivalent booster vax 07/05/22 Recorded influenza virus [...] pediatric vaccine 35 96 Recorded 1Result Comment: [id number] 2Result Comment: [facility] [place] 3Result Comment: [facility]-[id number] 4Location History: [facility] [place] 5Result Comment: [11/26/2016] [facility] 6Result Comment: [11/26/2016] [facility] 7Result Comment: [11/26/2016] [facility] 8Result Comment: [11/26/2016] [facility] 9Result Comment: [11/26/2016] [facility] 10Result Comment: [11/26/2016] [facility] 11Result Comment: [11/26/2016] [facility] 12Result Comment: [11/26/2016] [facility] 13Result Comment: [11/26/2016] [facility] 14Result Comment: [11/26/2016] [facility] 15Result Comment: [11/26/2016] [facility] 16Result Comment: [11/26/2016] [facility] 17Result Comment: [11/26/2016] [facility] 18Result Comment: [11/26/2016] [facility] 19Result Comment: [11/26/2016] [facility] 20Result Comment: [11/26/2016] [facility] 21Result Comment: [11/26/2016] [facility] 22Result Comment: [11/26/2016] [facility] 23Result Comment: [11/26/2016] [facility] 24Result Comment: [11/26/2016] [facility] 25Result Comment: [11/26/2016] [facility] 26Result Comment: [11/26/2016] [facility] 27Result Comment: [11/26/2016] [facility] 28Result Comment: [11/26/2016] [facility] 29Result Comment: [11/26/2016] [facility] 30Result Comment: [11/26/2016] [facility] 31Result Comment: [11/26/2016] [facility] 32Result Comment: [11/26/2016] [facility] 33Result Comment: [11/26/2016] [facility] 34Result Comment: [11/26/2016] [facility] 35Result Comment: [11/26/2016] [facility] Medications Budesonide 1 mg, 1mg/2ml, Refills [...] Team Personnel Name: Margaux Vivas RN Position: [facility] RN Member Role: Primary Care Nurse Name: Live Leyva MD Position: [facility] Physician -Physician Practices Member Role: Lifetime Consulting Physician Name: Jeanmarie Lopez MD Position: [facility] Renal MD Member Role: Lifetime Consulting Physician Address: Address: [address] [place] [address], [address] [facility] [place] [address]- Name: Lashonda Clifford Position: [facility] Outreach Member Role: Lifetime Consulting Physician Name: Isaiah Angeles MD Position: [facility] Physician - Primary Care Member Role: PCP Address: Address: [address] [place] [address]- Name: Annalise Lara RN Position: [facility] RN Member Role: Primary Care Nurse Name: Mark Wilkes MD Position: [facility] Renal MD Member Role: Lifetime Consulting Physician Address: Address: [address] [place] [address] [facility] [place] [address]- Name: Bibiana Treviño RN Position: [facility] RN Member Role: Primary Care Nurse Care Team Related Persons Name: MIRA MILLER Address: [place] Address: home [address] [place] [address] [place] Name: ANGELA MIRA Address: home [address] [id number] Name: PRATEEK MILLER Address: [address] [place] [address] Name: BELEN MILLER Address: [address] [place] [address] Name: BELEN MILLER Address: home [address] [place] [address]
--- OUTSIDE RECORDS SUMMARY | 2024-05-20 07:37 | XMS_ITS | Continuity of Care Document ---
Author Organization [facility] Ethan lt Address [address] [place] [address]- Care Team Providers Care Wire Weaver Cloth Name Role Phone Karthik HENLEY, Isaiah Douglas Primary Care Physician [place] [facility] [place] 08/09/23 - 09/08/23 [facility] Adult [address] [place] [address]- Allergies, Adverse Reactions, Alerts Substance Reaction Severity [...] corded tetanus-diphtheria toxoids (Td) 10 08/15/22 Given [id number] bivalent booster vax 07/05/22 Recorded SARS-CoV-2 (COVID-19) [...] Comment: [facility] [place] 2Result Comment: [facility]-[id number] 3Location History: [facility] [place] 4Result Comment: [11/26/2016] [facility] 5Result Comment: [11/26/2016] [facility] 6Result Comment: [11/26/2016] [facility] 7Result Comment: [11/26/2016] [facility] 8Result Comment: [11/26/2016] [facility] 9Result Comment: [11/26/2016] [facility] 10Result Comment: [id number] 11Result Comment: [11/26/2016] [facility] 12Result Comment: [11/26/2016] [facility] 13Result Comment: [11/26/2016] [facility] 14Result Comment: [11/26/2016] [facility] 15Result Comment: [11/26/2016] [facility] 16Result Comment: [11/26/2016] [facility] 17Result Comment: [11/26/2016] [facility] 18Result Comment: [11/26/2016] [facility] 19Result Comment: [11/26/2016] [facility] 20Result Comment: [11/26/2016] [facility] 21Result Comment: [11/26/2016] [facility] 22Result Comment: [11/26/2016] [facility] 23Result Comment: [11/26/2016] [facility] 24Result Comment: [11/26/2016] [facility] 25Result Comment: [11/26/2016] [facility] 26Result Comment: [11/26/2016] [facility] 27Result Comment: [11/26/2016] [facility] 28Result Comment: [11/26/2016] [facility] 29Result Comment: [11/26/2016] [facility] 30Result Comment: [11/26/2016] [facility] 31Result Comment: [11/26/2016] [facility] 32Result Comment: [11/26/2016] [facility] 33Result Comment: [11/26/2016] [facility] 34Result Comment: [11/26/2016] [facility] 35Result Comment: [11/26/2016] [facility] Medications [...] Team Personnel Name: Live Leyva MD Position: [facility] Physician -Physician Practices Member Role: Lifetime Consulting Physician Name: Jeanmarie Lopez MD Position: [facility] Renal MD Member Role: Lifetime Consulting Physician Address: Address: [address] [place] [address] [address] [place] [address]- Name: Lashonda Clifford Position: [facility] Outreach Member Role: Lifetime Consulting Physician Name: Tiera Wadsworth RN Position: [facility] RN Member Role: Primary Care Nurse Name: Isaiah Angeles MD Position: [facility] Physician - Primary Care Member Role: PCP Address: Address: [address] [place] [id number]- [place] Name: Annalise Lara RN Position: S RN Member Role: Primary Care Nurse Name: Mark Wilkes MD Position: [facility] Renal MD Member Role: Lifetime Consulting Physician Address: Address: [address] [place] [address] [facility] [place] [address]- Name: Bibiana Treviño RN Position: [facility] RN Member Role: Primary Care Nurse Care Team Related Persons Name: MIRA MILLER Address: [place] Address: home [address] [place] [address] [place] Name: MIRA MILLER Address: home [address] [id number] Name: PRATEEK MILLER Address: [address] [place] [address] Name: BELEN MILLER Address: [address] [place] [address] Name: BELEN MILLER Address: home [address] [place] [address]
--- OUTSIDE RECORDS SUMMARY | 2024-05-20 07:37 | XMS_ITS | Continuity of Care Document ---
Author Organization [facility] Ethan lt Address [address] [place] [address]- Care Team Providers Care Operating Room Surgical Technologist Name Role Phone Karthik HENLEY, Isaiah Douglas Primary Care Physician Encounter [facility] Date(s): 02/07/22 - 03/09/22 [facility] Adult [address] [place] [address]- Allergies, Adverse Reactions, Alerts Substance Reaction Severity [...] Guardian Refuses 1Result Comment: [facility]-[id number] 2Location History: [facility] [place] 3Result Comment: [11/26/2016] [facility] 4Result Comment: [11/26/2016] [facility] 5Result Comment: [11/26/2016] [facility] 6Result Comment: [11/26/2016] [facility] 7Result Comment: [11/26/2016] [facility] 8Result Comment: [11/26/2016] [facility] 9Result Comment: [11/26/2016] [facility] 10Result Comment: [11/26/2016] [facility] 11Result Comment: [11/26/2016] [facility] 12Result Comment: [11/26/2016] [facility] 13Result Comment: [11/26/2016] [facility] 14Result Comment: [11/26/2016] [facility] 15Result Comment: [11/26/2016] [facility] 16Result Comment: [11/26/2016] [facility] 17Result Comment: [11/26/2016] [facility] 18Result Comment: [11/26/2016] [facility] 19Result Comment: [11/26/2016] [facility] 20Result Comment: [11/26/2016] [facility] 21Result Comment: [11/26/2016] [facility] 22Result Comment: [11/26/2016] [facility] 23Result Comment: [11/26/2016] [facility] 24Result Comment: [11/26/2016] [facility] 25Result Comment: [11/26/2016] [facility] 26Result Comment: [11/26/2016] [facility] 27Result Comment: [11/26/2016] [facility] 28Result Comment: [11/26/2016] [facility] 29Result Comment: [11/26/2016] [facility] 30Result Comment: [11/26/2016] [facility] 31Result Comment: [11/26/2016] [facility] 32Result Comment: [11/26/2016] [facility] 33Result Comment: [11/26/2016] [facility] Medications calcium (as carbonate) 500 mg [...]
--- OUTSIDE RECORDS SUMMARY | 2024-05-20 07:37 | XMS_ITS | Continuity of Care Document ---
Author Organization [facility] Ethan lt Address [address] [place] [address]- Care Team Providers Care Supervisor Loading Name Role Phone Karthik HENLEY, Isaiah Douglas Primary Care Physician [phone] [place] [facility] [place] Date(s): 01/22/22 - 02/21/22 [facility] Adult [address] [place] [address]- Allergies, Adverse Reactions, Alerts Substance Reaction Severity [...] 1Result Comment: [facility]-[id number] 2Location History: [facility] [place] 3Result Comment: [11/26/2016] [facility] 4Result Comment: [11/26/2016] [facility] 5Result Comment: [11/26/2016] [facility] 6Result Comment: [11/26/2016] [facility] 7Result Comment: [11/26/2016] [facility] 8Result Comment: [11/26/2016] [facility] 9Result Comment: [11/26/2016] [facility] 10Result Comment: [11/26/2016] [facility] 11Result Comment: [11/26/2016] [facility] 12Result Comment: [11/26/2016] [facility] 13Result Comment: [11/26/2016] [facility] 14Result Comment: [11/26/2016] [facility] 15Result Comment: [11/26/2016] [facility] 16Result Comment: [11/26/2016] [facility] 17Result Comment: [11/26/2016] [facility] 18Result Comment: [11/26/2016] [facility] 19Result Comment: [11/26/2016] [facility] 20Result Comment: [11/26/2016] [facility] 21Result Comment: [11/26/2016] [facility] 22Result Comment: [11/26/2016] [facility] 23Result Comment: [11/26/2016] [facility] 24Result Comment: [11/26/2016] [facility] 25Result Comment: [11/26/2016] [facility] 26Result Comment: [11/26/2016] [facility] 27Result Comment: [11/26/2016] [facility] 28Result Comment: [11/26/2016] [facility] 29Result Comment: [11/26/2016] [facility] 30Result Comment: [11/26/2016] [facility] 31Result Comment: [11/26/2016] [facility] 32Result Comment: [11/26/2016] [facility] 33Result Comment: [11/26/2016] [facility] Medications calcium (as carbonate) 500 mg [...]
--- OUTSIDE RECORDS SUMMARY | 2024-05-20 07:37 | XMS_ITS | Continuity of Care Document ---
Author Organization [facility] Ethan lt Address [address] [place] [address]- Care Team Providers Care Director Of Litigation Name Role Phone Karthik HENLEY, Isaiah Douglas Primary Care Physician [phone] Encounter [facility] Date(s): 07/21/21 - 08/20/21 [facility] Adult [address] [place] [address]- Allergies, Adverse Reactions, Alerts Substance Reaction Severity [...] Given Parent Or Guardian Refuses 1Result Comment: [facility]-[id number] 2[facility] 3Result Comment: [11/26/2016] [facility] 4Result Comment: [11/26/2016] [facility] 5Result Comment: [11/26/2016] [facility] 6Result Comment: [11/26/2016] [facility] 7Result Comment: [11/26/2016] [facility] 8Result Comment: [11/26/2016] [facility] 9Result Comment: [11/26/2016] [facility] 10Result Comment: [11/26/2016] [facility] 11Result Comment: [11/26/2016] [facility] 12Result Comment: [11/26/2016] [facility] 13Result Comment: [11/26/2016] [facility] 14Result Comment: [11/26/2016] [facility] 15Result Comment: [11/26/2016] [facility] 16Result Comment: [11/26/2016] [facility] 17Result Comment: [11/26/2016] [facility] 18Result Comment: [11/26/2016] [facility] 19Result Comment: [11/26/2016] [facility] 20Result Comment: [11/26/2016] [facility] 21Result Comment: [11/26/2016] [facility] 22Result Comment: [11/26/2016] [facility] 23Result Comment: [11/26/2016] [facility] 24Result Comment: [11/26/2016] [facility] 25Result Comment: [11/26/2016] [facility] 26Result Comment: [11/26/2016] [facility] 27Result Comment: [11/26/2016] [facility] 28Result Comment: [11/26/2016] [facility] 29Result Comment: [11/26/2016] [facility] 30Result Comment: [11/26/2016] [facility] 31Result Comment: [11/26/2016] [facility] 32Result Comment: [11/26/2016] [facility] 33Result Comment: [11/26/2016] [facility] Medications lidocaine 4% topical film 1 [...]
--- OUTSIDE RECORDS SUMMARY | 2024-05-20 07:37 | XMS_ITS | Continuity of Care Document ---
Author Organization [facility] ter Address [address] [place] [address]- Care Team Providers Care Php Magento Developer Name Role Phone Karthik HENLEY, Isaiah Douglas Primary Care Physician Encounter [facility] Date(s): 12/21/19 - 12/22/[address] [address]- [facility] Discharge Disposition: A-D/C Home Attending Physician: Lou Colon MD Admitting Physician: Pawel Calhoun DO Referring Physician: Not on Staff, Referring MD [...] Or Guardian Refuses 1Result Comment: [facility]-[id number] 2Location History: [facility] [place] 3Result Comment: [11/26/2016] [facility] 4Result Comment: [11/26/2016] [facility] 5Result Comment: [11/26/2016] [facility] 6Result Comment: [11/26/2016] [facility] 7Result Comment: [11/26/2016] [facility] 8Result Comment: [11/26/2016] [facility] 9Result Comment: [11/26/2016] [facility] 10Result Comment: [11/26/2016] [facility] 11Result Comment: [11/26/2016] [facility] 12Result Comment: [11/26/2016] [facility] 13Result Comment: [11/26/2016] [facility] 14Result Comment: [11/26/2016] [facility] 15Result Comment: [11/26/2016] [facility] 16Result Comment: [11/26/2016] [facility] 17Result Comment: [11/26/2016] [facility] 18Result Comment: [11/26/2016] [facility] 19Result Comment: [11/26/2016] [facility] 20Result Comment: [11/26/2016] [facility] 21Result Comment: [11/26/2016] [facility] 22Result Comment: [11/26/2016] [facility] 23Result Comment: [11/26/2016] [facility] 24Result Comment: [11/26/2016] [facility] 25Result Comment: [11/26/2016] [facility] 26Result Comment: [11/26/2016] [facility] 27Result Comment: [11/26/2016] [facility] 28Result Comment: [11/26/2016] [facility] 29Result Comment: [11/26/2016] [facility] 30Result Comment: [11/26/2016] [facility] 31Result Comment: [11/26/2016] [facility] 32Result Comment: [11/26/2016] [facility] 33Result Comment: [11/26/2016] [facility] Medications amLODIPine 5 mg oral tablet 5 mg, 1, tablet, By Mouth, Daily, # 30 tablet, Refills 0, Tot. Refills 0, Maintenance, 12/22/19 11:12:00 EDT, Route to Pharmacy Electronically, [id number], 153, cm, 12/22/19 8:04:00 EDT, Height, 65.3, kg, 12/21/19 20:11:00 EDT, Dry Weight Start Date: 12/22/19 Status: Ordered carvedilol 12.5 mg oral tablet 25 mg, 2, tablet, By Mouth, 2 times a day, Refills 0, Maintenance, 12/22/19 11:12:00 EDT Start Date: 12/22/19 Status: Ordered Flovent HFA 110 mcg/inh inhalation [...] Route Start Date: 10/22/19 Status: Ordered levothyroxine 0.3 mg oral tablet 1 tablet = 300 mcg, By Mouth, Daily, # 30 tablet, 0 Refills, Maintenance, 12/22/19 11:39:00 EDT, Tablet Start Date: 12/22/19 Status: Ordered levothyroxine 0.3 mg oral tablet 1 tablet = 300 mcg, By Mouth, Daily, # 90 tablet, 4 Refills, Maintenance, 12/22/19 11:34:00 EDT, Tablet, [facility], 153, cm, 12/22/19 8:04:00 EDT, Height, 65.3, kg, 12/21/19 20:11:00 EDT, Dry Weight Start Date: 12/22/19 Status: Ordered lisinopril 10 mg oral tablet 40 mg, 4, tablet, By Mouth, Daily, Refills 0, Maintenance, 12/22/19 11:12:00 EDT Start Date: 12/22/19 Status: Ordered Vimpat 50 mg oral tablet [...] Range]: 1 2 3 Height 153 cm (12/22/19 8:04 AM) 153 cm (12/22/19 4:03 AM) 153 cm (12/22/19 12:09 AM) Weight 65.3 kg (12/21/19 8:11 PM) Oxygen Saturation [94-100 %] 97 % (12/22/19 8:04 AM) 99 % (12/22/19 4:03 AM) 99 % (12/22/19 12:09 AM) Pulse Rate [55-90 bpm] 77 bpm (12/22/19 8:23 AM) 77 bpm (12/22/19 8:04 AM) 79 bpm (12/22/19 4:03 AM) Body Mass Index [18.5-24.99] 27.9 *H* (12/21/19 8:11 PM) Blood Pressure [90-138/55-84 mm Hg] 128/96mm Hg (12/22/19 8:23 AM) 128/96mm Hg (12/22/19 8:23 AM) 128/96mm Hg (12/22/19 8:23 AM) Respiratory Rate [16-30 br/min] 20 br/min (12/22/19 8:04 AM) 20 br/min (12/22/19 4:03 AM) 20 br/min (12/22/19 12:09 AM) Temperature [96.8-100.4 DegF] 98.4 DegF (12/22/19 8:04 AM) 97.7 DegF (12/22/19 4:03 AM) 98.4 DegF (12/22/19 12:09 AM) Mode of Delivery (Oxygen) Room air (12/22/19 8:04 AM) Room air (12/22/19 4:03 AM) Room air (12/22/19 12:09 AM) Blood pressure sites Arm, right (12/22/19 8:04 AM) Arm, left (12/22/19 4:03 AM) Arm, left (12/22/19 12:09 AM) Temperature Route Oral (12/22/19 8:04 AM) Oral (12/22/19 4:03 AM) Oral (12/22/19 12:09 AM) Dry Weight 65.3 kg (12/21/19 8:11 PM) Social History Social History Type Response Smoking Status Never smoker entered on: 10/24/17 Sex
--- OUTSIDE RECORDS SUMMARY | 2024-05-20 07:37 | XMS_ITS | Continuity of Care Document ---
Author Organization [facility] Address [address] [place] [address]- Care Team Providers Care Supervisor Telephone Answering Service Name Role Phone Karthik HENLEY, Isaiah Douglas Primary Care Physician Encounter [facility] Date(s): 04/18/21 - 05/18/21 [facility] [address] [place] [address]- Allergies, Adverse Reactions, Alerts Substance Reaction Severity [...] Guardian Refuses 1Result Comment: [facility]-[id number] 2Location History: [facility] 3Result Comment: [11/26/2016] [facility] 4Result Comment: [11/26/2016] [facility] 5Result Comment: [11/26/2016] [facility] 6Result Comment: [11/26/2016] [facility] 7Result Comment: [11/26/2016] [facility] 8Result Comment: [11/26/2016] [facility] 9Result Comment: [11/26/2016] [facility] 10Result Comment: [11/26/2016] [facility] 11Result Comment: [11/26/2016] [facility] 12Result Comment: [11/26/2016] [facility] 13Result Comment: [11/26/2016] [facility] 14Result Comment: [11/26/2016] [facility] 15Result Comment: [11/26/2016] [facility] 16Result Comment: [11/26/2016] [facility] 17Result Comment: [11/26/2016] [facility] 18Result Comment: [11/26/2016] [facility] 19Result Comment: [11/26/2016] [facility] 20Result Comment: [11/26/2016] [facility] 21Result Comment: [11/26/2016] [facility] 22Result Comment: [11/26/2016] [facility] 23Result Comment: [11/26/2016] [facility] 24Result Comment: [11/26/2016] [facility] 25Result Comment: [11/26/2016] [facility] 26Result Comment: [11/26/2016] [facility] 27Result Comment: [11/26/2016] [facility] 28Result Comment: [11/26/2016] [facility] 29Result Comment: [11/26/2016] [facility] 30Result Comment: [11/26/2016] [facility] 31Result Comment: [11/26/2016] [facility] 32Result Comment: [11/26/2016] [facility] 33Result Comment: [11/26/2016] [facility] Medications levothyroxine 125 mcg (0.125 mg) [...]
--- OUTSIDE RECORDS SUMMARY | 2024-05-20 07:37 | XMS_ITS | Continuity of Care Document ---
Author Organization [facility] Ethan lt Address [address] [place] [address]- Care Team Providers Care Drosser Name Role Phone Karthik HENLEY, Isaiah Douglas Primary Care Physician [place] [facility] [place] 11[place]02/22 [facility] Adult [address] [place] [address]- Allergies, Adverse Reactions, Alerts Substance Reaction Severity Status codeine 1 Surgical adhesive ta pe itching Active Adhesive Bandage 2 Rash Active riTUXimab 3 Severe Active 1hives 2surgical tape allergy as per family 3developed anaphylaxis with throat closure sensation and facial swelling needed brief epinephrine drip Immunizations Given and Recorded Vaccine Date Status Refusal Reason tetanus-diphtheria toxoids (Td) 1 08/15/22 Given [id number] bivalent booster vax 07/05/22 Recorded influenza virus vaccine, inactivated 2 06/03/22 Re corded influenza virus vaccine, inactivated 05/16/20 Fareed rded influenza virus vaccine, inactivated 3 05/20/19 Gi lbiby influenza virus vaccine, inactivated 4 07/06/18 Re [...] Given Parent Or Guardian Refuses 1Result Comment: [id number] 2Result Comment: [facility] [place] 3Result Comment: [facility]-[id number] 4Location History: [facility] [place] 5Result Comment: [11/26/2016] [facility] 6Result Comment: [11/26/2016] [facility] 7Result Comment: [11/26/2016] [facility] 8Result Comment: [11/26/2016] [facility] 9Result Comment: [11/26/2016] [facility] 10Result Comment: [11/26/2016] [facility] 11Result Comment: [11/26/2016] [facility] 12Result Comment: [11/26/2016] [facility] 13Result Comment: [11/26/2016] [facility] 14Result Comment: [11/26/2016] [facility] 15Result Comment: [11/26/2016] [facility] 16Result Comment: [11/26/2016] [facility] 17Result Comment: [11/26/2016] [facility] 18Result Comment: [11/26/2016] [facility] 19Result Comment: [11/26/2016] [facility] 20Result Comment: [11/26/2016] [facility] 21Result Comment: [11/26/2016] [facility] 22Result Comment: [11/26/2016] [facility] 23Result Comment: [11/26/2016] [facility] 24Result Comment: [11/26/2016] [facility] 25Result Comment: [11/26/2016] [facility] 26Result Comment: [11/26/2016] [facility] 27Result Comment: [11/26/2016] [facility] 28Result Comment: [11/26/2016] [facility] 29Result Comment: [11/26/2016] [facility] 30Result Comment: [11/26/2016] [facility] 31Result Comment: [11/26/2016] [facility] 32Result Comment: [11/26/2016] [facility] 33Result Comment: [11/26/2016] [facility] 34Result Comment: [11/26/2016] [facility] 35Result Comment: [11/26/2016] [facility] Medications cholecalciferol 50 mcg (2000 intl [...] Role: Lifetime Consulting Physician Address: Address: [address] [place] [address], [address] [facility] [place] [address]- [place] Name: Lashonda Clifford Position: [facility] Outreach Member Role: Lifetime Consulting Physician Name: Tiera Wadsworth RN Position: [facility] RN Member Role: Primary Care Nurse Name: Isaiah Angeles MD Position: [facility] Primary Care Physician Member Role: PCP Address: Address: [address] [place] [address]- [place] Name: Annalise Lara RN Position: [facility] RN Member Role: Primary Care Nurse Name: Mark Wilkes MD Position: [facility] Renal MD Member Role: Lifetime Consulting Physician Address: Address: [address] [facility] [place] [address]- [place] Name: Bibiana Treviño RN Position: [facility] RN Member Role: Primary Care Nurse Care Team Related Persons Name: MIRA MILLER Address: [address] [phone] Name: MIRA MILLER Address: [address] [phone] Name: MIRA MILLER Address: [address] [phone] Name: MIRA MILLER Address: [address] [phone] Name: MIRA MILLER Address: [address] [phone] Name: MIRA MILLER Address: [address] [phone] Name: MIRA MILLER Address: [address] [id number] Name: PRATEEK MILLER Address: [address] [address] Name: BELEN MILLER Address: [address] [address] Name: BELEN MILLER Address: [address] [address]
--- OUTSIDE RECORDS SUMMARY | 2024-05-20 07:37 | XMS_ITS | Continuity of Care Document ---
Author Organization [facility] Ethan lt Address [address] [place] [address]- Care Team Providers Care Irrigation Worker Name Role Phone Karthik HENLEY, Isaiah Douglas Primary Care Physician [phone] Encounter [facility] Date(s): 07/19/22 - 08/18/22 [facility] Adult [address] [place] [address]- Allergies, Adverse Reactions, Alerts Substance Reaction Severity Status codeine 1 Surgical adhesive ta pe itching Active Adhesive Bandage 2 Rash Active riTUXimab 3 Severe Active 1hives 2surgical tape allergy as per family 3developed anaphylaxis with throat closure sensation and facial swelling needed brief epinephrine drip Immunizations Given and Recorded Vaccine Date Status Refusal Reason tetanus-diphtheria toxoids (Td) 1 08/15/22 Given [id number] bivalent booster vax 07/05/22 Recorded influenza virus [...] Given Parent Or Guardian Refuses 1Result Comment: [id number] 2Result Comment: [facility] [place] 3Result Comment: [facility]-[id number] 4Location History: [facility] [place] 5Result Comment: [11/26/2016] [facility] 6Result Comment: [11/26/2016] [facility] 7Result Comment: [11/26/2016] [facility] 8Result Comment: [11/26/2016] [facility] 9Result Comment: [11/26/2016] [facility] 10Result Comment: [11/26/2016] [facility] 11Result Comment: [11/26/2016] [facility] 12Result Comment: [11/26/2016] [facility] 13Result Comment: [11/26/2016] [facility] 14Result Comment: [11/26/2016] [facility] 15Result Comment: [11/26/2016] [facility] 16Result Comment: [11/26/2016] [facility] 17Result Comment: [11/26/2016] [facility] 18Result Comment: [11/26/2016] [facility] 19Result Comment: [11/26/2016] [facility] 20Result Comment: [11/26/2016] [facility] 21Result Comment: [11/26/2016] [facility] 22Result Comment: [11/26/2016] [facility] 23Result Comment: [11/26/2016] [facility] 24Result Comment: [11/26/2016] [facility] 25Result Comment: [11/26/2016] [facility] 26Result Comment: [11/26/2016] [facility] 27Result Comment: [11/26/2016] [facility] 28Result Comment: [11/26/2016] [facility] 29Result Comment: [11/26/2016] [facility] 30Result Comment: [11/26/2016] [facility] 31Result Comment: [11/26/2016] [facility] 32Result Comment: [11/26/2016] [facility] 33Result Comment: [11/26/2016] [facility] 34Result Comment: [11/26/2016] [facility] 35Result Comment: [11/26/2016] [facility] Medications Flovent 110 mcg Inhaler HFA [...] Team Personnel Name: Margaux Vivas RN Position: [facility] RN Member Role: Primary Care Nurse Name: Live Leyva MD Position: [facility] Physician -Physician Practices Member Role: Lifetime Consulting Physician Name: Jeanmarie Lopez MD Position: [facility] Renal MD Member Role: Lifetime Consulting Physician Address: Address: [address] [place] [address], [address] [facility] [place], [place] [address] Name: Lashonda Clifford Position: [facility] Outreach Member Role: Lifetime Consulting Physician Name: Tiera Wadsworth RN Position: [facility] RN Member Role: Primary Care Nurse Name: Isaiah Angeles MD Position: [facility] Primary Care Physician Member Role: PCP Address: Address: [address] [place] [address]- Name: Annalise Lara RN Position: [facility] RN Member Role: Primary Care Nurse Name: Mark Wilkes MD Position: [facility] Renal MD Member Role: Lifetime Consulting Physician Address: Address: [address] [place] [address] [facility] [place] [address]- Name: Bibiana Treviño RN Position: S RN Member Role: Primary Care Nurse Care Team Related Persons Name: MIRA MILLER Address: [place] [phone] Name: MIRA MILLER Address: [place] [phone] Name: MIRA MILLER Address: [place] [phone] Name: MIRA MILLER Address: [place] [phone] Name: MIRA MILLER Address: [place] [phone] Name: MIRA MILLER Address: [place] [phone] Name: MIRA MILLER Address: [place] [phone] Name: PRATEEK MILLER Address: [address] [address] Name: BELEN MILLER Address: [address] [address] Name: BELEN MILLER Address: [address] [address]
--- OUTSIDE RECORDS SUMMARY | 2024-05-20 07:37 | XMS_ITS | Continuity of Care Document ---
Author Organization [facility] Ethan lt Address [address] [place] [address]- Care Team Providers Care Er Physician Name Role Phone Karthik HENLEY, Isaiah Douglas Primary Care Physician Encounter [facility] [place] Date(s): 10/28/23 - 11/27/23 [facility] Adult [address] [place] [address]- Allergies, Adverse Reactions, Alerts Substance Reaction Severity [...] corded tetanus-diphtheria toxoids (Td) 10 08/15/22 Given [id number] bivalent booster vax 07/05/22 Recorded SARS-CoV-2 (COVID-19) [...] Comment: [facility] [place] 2Result Comment: [facility]-[id number] 3Location History: [facility] [place] 4Result Comment: [11/26/2016] [facility] 5Result Comment: [11/26/2016] [facility] 6Result Comment: [11/26/2016] [facility] 7Result Comment: [11/26/2016] [facility] 8Result Comment: [11/26/2016] [facility] 9Result Comment: [11/26/2016] [facility] 10Result Comment: [id number] 11Result Comment: [11/26/2016] [facility] 12Result Comment: [11/26/2016] [facility] 13Result Comment: [11/26/2016] [facility] 14Result Comment: [11/26/2016] [facility] 15Result Comment: [11/26/2016] [facility] 16Result Comment: [11/26/2016] [facility] 17Result Comment: [11/26/2016] [facility] 18Result Comment: [11/26/2016] [facility] 19Result Comment: [11/26/2016] [facility] 20Result Comment: [11/26/2016] [facility] 21Result Comment: [11/26/2016] [facility] 22Result Comment: [11/26/2016] [facility] 23Result Comment: [11/26/2016] [facility] 24Result Comment: [11/26/2016] [facility] 25Result Comment: [11/26/2016] [facility] 26Result Comment: [11/26/2016] [facility] 27Result Comment: [11/26/2016] [facility] 28Result Comment: [11/26/2016] [facility] 29Result Comment: [11/26/2016] [facility] 30Result Comment: [11/26/2016] [facility] 31Result Comment: [11/26/2016] [facility] 32Result Comment: [11/26/2016] [facility] 33Result Comment: [11/26/2016] [facility] 34Result Comment: [11/26/2016] [facility] 35Result Comment: [11/26/2016] [facility] Medications [...] Team Personnel Name: Live Leyva MD Position: [facility] Physician -Physician Practices Member Role: Lifetime Consulting Physician Name: Jeanmarie Lopez MD Position: [facility] Renal MD Member Role: Lifetime Consulting Physician Address: Address: [address] [place] [address] [address] [place] [address]- Name: Lashonda Clifford Position: [facility] Outreach Member Role: Lifetime Consulting Physician Name: Tiera Wadsworth RN Position: [facility] RN Member Role: Primary Care Nurse Name: Isaiah Angeles MD Position: [facility] Physician - Primary Care Member Role: PCP Address: Address: [address] [place] [address]- [place] Name: Annalise Lara RN Position: S RN Member Role: Primary Care Nurse Name: Mark Wilkes MD Position: [facility] Renal MD Member Role: Lifetime Consulting Physician Address: Address: [address] [place] [address] [facility] [place] [address]- Name: Bibiana Treviño RN Position: S RN Member Role: Primary Care Nurse Care Team Related Persons Name: MIRA MILLER Address: home [address] [place] [phone] Name: MIRA MILLER Address: [place] Address: [address] [place] [address] [place] Name: PRATEEK MILLER Address: [address] [place] [address] Name: BELEN MILLER Address: [address] [place] [address] Name: BELEN MILLER Address: [address] [place] [address]
--- OUTSIDE RECORDS SUMMARY | 2024-05-20 07:37 | XMS_ITS | Continuity of Care Document ---
Author Organization [facility] Address [address] [place] [address]- Care Team Providers Care Ammonia Distiller Name Role Phone Karthik HENLEY, Isaiah Douglas Primary Care Physician [place] [facility] [place] Date(s): 01/04/23 - 02/03/23 [facility] [address] [place] [address] Allergies, Adverse Reactions, Alerts Substance Reaction Severity Status codeine 1 Surgical adhesive ta pe itching Active Adhesive Bandage 2 Rash Active riTUXimab 3 Severe Active 1hives 2surgical tape allergy as per family 3developed anaphylaxis with throat closure sensation and facial swelling needed brief epinephrine drip Immunizations Given and Recorded Vaccine Date Status Refusal Reason tetanus-diphtheria toxoids (Td) 1 08/15/22 Given [id number] bivalent booster vax 07/05/22 Recorded influenza virus [...] Given Parent Or Guardian Refuses 1Result Comment: [id number] 2Result Comment: [facility] [place] 3Result Comment: [facility]-[id number] 4Location History: [facility] [place] 5Result Comment: [11/26/2016] [facility] 6Result Comment: [11/26/2016] [facility] 7Result Comment: [11/26/2016] [facility] 8Result Comment: [11/26/2016] [facility] 9Result Comment: [11/26/2016] [facility] 10Result Comment: [11/26/2016] [facility] 11Result Comment: [11/26/2016] [facility] 12Result Comment: [11/26/2016] [facility] 13Result Comment: [11/26/2016] [facility] 14Result Comment: [11/26/2016] [facility] 15Result Comment: [11/26/2016] [facility] 16Result Comment: [11/26/2016] [facility] 17Result Comment: [11/26/2016] [facility] 18Result Comment: [11/26/2016] [facility] 19Result Comment: [11/26/2016] [facility] 20Result Comment: [11/26/2016] [facility] 21Result Comment: [11/26/2016] [facility] 22Result Comment: [11/26/2016] [facility] 23Result Comment: [11/26/2016] [facility] 24Result Comment: [11/26/2016] [facility] 25Result Comment: [11/26/2016] [facility] 26Result Comment: [11/26/2016] [facility] 27Result Comment: [11/26/2016] [facility] 28Result Comment: [11/26/2016] [facility] 29Result Comment: [11/26/2016] [facility] 30Result Comment: [11/26/2016] [facility] 31Result Comment: [11/26/2016] [facility] 32Result Comment: [11/26/2016] [facility] 33Result Comment: [11/26/2016] [facility] 34Result Comment: [11/26/2016] [facility] 35Result Comment: [11/26/2016] [facility] Medications cholecalciferol 50 mcg (2000 intl [...] Name: Margaux Vivas RN Position: [facility] RN Member Role: Primary Care Nurse Name: Live Leyva MD Position: [facility] Physician -Physician Practices Member Role: Lifetime Consulting Physician Name: Jeanmarie Lopez MD Position: [facility] Renal MD Member Role: Lifetime Consulting Physician Address: Address: [address] [place] [address], [facility] [address] [facility] [place], [place] [address] Name: Lashonda Clifford Position: [facility] Outreach Member Role: Lifetime Consulting Physician Name: Isaiah Angeles MD Position: [facility] Physician - Primary Care Member Role: PCP Address: Address: [address] [place] [address]- Name: Annalise Lara RN Position: [facility] RN Member Role: Primary Care Nurse Name: Mark Wilkes MD Position: [facility] Renal MD Member Role: Lifetime Consulting Physician Address: Address: [address] [place] [address] [facility] [place] [address]- Name: Bibiana Treviño RN Position: [facility] RN Member Role: Primary Care Nurse Care Team Related Persons Name: MIRA MILLER Address: home [address] [place] [address] Name: MIRA MILLER Address: home [address] [place] [address] Name: MIRA MILLER Address: [address] [phone] Name: MIRA MILLER Address: [address] [phone] Name: MIRA MILLER Address: [address] [phone] Name: MIRA MILLER Address: [address] [phone] Name: MIRA MILLER Address: [address] [phone] Name: PRATEEK MILLER Address: [address] [address] Name: BELEN MILLER Address: [address] [address] Name: BELEN MILLER Address: [address] [address]
--- OUTSIDE RECORDS SUMMARY | 2024-05-20 07:37 | XMS_ITS | Continuity of Care Document ---
Author Organization [facility] Ethan lt Address [address] [place] [address]- Care Team Providers Care Nail Puller Name Role Phone Karthik HENLEY, Isaiah Douglas Primary Care Physician [phone] Encounter [facility] Date(s): 08/22/20 - 09/21/20 [facility] Adult [address] [place] [address]- Allergies, Adverse Reactions, Alerts Substance Reaction Severity [...] Refuses 1Result Comment: [id number] 2Location History: [facility] [place] 3Result Comment: [11/26/2016] [facility] 4Result Comment: [11/26/2016] [facility] 5Result Comment: [11/26/2016] [facility] 6Result Comment: [11/26/2016] [facility] 7Result Comment: [11/26/2016] [facility] 8Result Comment: [11/26/2016] [facility] 9Result Comment: [11/26/2016] [facility] 10Result Comment: [11/26/2016] [facility] 11Result Comment: [11/26/2016] [facility] 12Result Comment: [11/26/2016] [facility] 13Result Comment: [11/26/2016] [facility] 14Result Comment: [11/26/2016] [facility] 15Result Comment: [11/26/2016] [facility] 16Result Comment: [11/26/2016] [facility] 17Result Comment: [11/26/2016] [facility] 18Result Comment: [11/26/2016] [facility] 19Result Comment: [11/26/2016] [facility] 20Result Comment: [11/26/2016] [facility] 21Result Comment: [11/26/2016] [facility] 22Result Comment: [11/26/2016] [facility] 23Result Comment: [11/26/2016] [facility] 24Result Comment: [11/26/2016] [facility] 25Result Comment: [11/26/2016] [facility] 26Result Comment: [11/26/2016] [facility] 27Result Comment: [11/26/2016] [facility] 28Result Comment: [11/26/2016] [facility] 29Result Comment: [11/26/2016] [facility] 30Result Comment: [11/26/2016] [facility] 31Result Comment: [11/26/2016] [facility] 32Result Comment: [11/26/2016] [facility] 33Result Comment: [11/26/2016] [facility] Medications carvedilol 12.5 mg oral tablet [...]
--- OUTSIDE RECORDS SUMMARY | 2024-05-20 07:37 | XMS_ITS | Continuity of Care Document ---
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 Hypothyroidism(Discharge Diagnosis) - 07/28/19 Iron deficiency anemia(Discharge Diagnosis) - 07/28/19 Heavy menses(Discharge Diagnosis) - 07/28/19 Seizure disorder(Discharge Diagnosis) - 07/28/19 Genetic disorder(Discharge Diagnosis) - 07/28/19 Attending Physician: Isaiah Angeles MD Allergies, Adverse [...] Guardian Refuses 1Result Comment: [facility]-[id number] 2Location History: [facility] [place] 3Result Comment: [11/26/2016] [facility] 4Result Comment: [11/26/2016] [facility] 5Result Comment: [11/26/2016] [facility] 6Result Comment: [11/26/2016] [facility] 7Result Comment: [11/26/2016] [facility] 8Result Comment: [11/26/2016] [facility] 9Result Comment: [11/26/2016] [facility] 10Result Comment: [11/26/2016] [facility] 11Result Comment: [11/26/2016] [facility] 12Result Comment: [11/26/2016] [facility] 13Result Comment: [11/26/2016] [facility] 14Result Comment: [11/26/2016] [facility] 15Result Comment: [11/26/2016] [facility] 16Result Comment: [11/26/2016] [facility] 17Result Comment: [11/26/2016] [facility] 18Result Comment: [11/26/2016] [facility] 19Result Comment: [11/26/2016] [facility] 20Result Comment: [11/26/2016] [facility] 21Result Comment: [11/26/2016] [facility] 22Result Comment: [11/26/2016] [facility] 23Result Comment: [11/26/2016] [facility] 24Result Comment: [11/26/2016] [facility] 25Result Comment: [11/26/2016] [facility] 26Result Comment: [11/26/2016] [facility] 27Result Comment: [11/26/2016] [facility] 28Result Comment: [11/26/2016] [facility] 29Result Comment: [11/26/2016] [facility] 30Result Comment: [11/26/2016] [facility] 31Result Comment: [11/26/2016] [facility] 32Result Comment: [11/26/2016] [facility] 33Result Comment: [11/26/2016] [facility] Medications ferrous sulfate 325 mg oral [...] 13:35:13, Aerosol Start Date: 05/22/17 Status: Ordered levothyroxine 150 mcg (0.15 mg) oral tablet 1 tablet = 150 mcg, By Mouth, Daily, # 30 tablet, 11 Refills, Maintenance, 07/21/19 5:38:39 EST, Tablet Start Date: 07/21/19 Status: Ordered lisinopril 2.5 mg oral tablet 2.5 mg, 1, tablet, By Mouth, Daily, # 30 tablet, Refills 0, Tot. Refills 0, Maintenance, 07/28/19 17:10:56 EST, Do Not Route Start Date: 07/28/19 Status: Ordered Lo Loestrin Fe oral tablet 1 tablet, By Mouth, Daily, # 30 tablet, 0 Refills, Maintenance, 07/28/19 17:10:22 EST Start Date: 07/28/19 Status: Ordered Vimpat 50 mg oral tablet [...] t prolapse(Confirmed)(Stable) Active Mitral valve prolapse(Confirmed) Active NAFL (nonalcoholic fatty liver)(Confirmed) Active Noncompliance with medications(Confirmed) Active Obstructive sleep apnea(Confirmed) Active Omental infarction(Confirmed) Active Orthostatic proteinuria(Confirmed) Active Osteoporosis(Confirmed) Active Postablative hypothyroidism(Confirmed) Active Proteinuria(Confirmed) Active Syringomyelia and syringobulbia(Confirmed) 1 Active Vitamin D deficiency(Confirmed) Active 1Thoracic Diagnosis Diagnosis Type Effective Dates Health Status Clinical Service Informant Membranous glomerulonephritis Discharge Diagnosis 07/28/19 Hypothyroidism Discharge Diagnosis 07/28/19 Iron deficiency anemia Discharge Diagnosis 07/28/19 Heavy menses Discharge Diagnosis 07/28/19 Seizure disorder Discharge Diagnosis 07/28/19 Genetic disorder Discharge Diagnosis 07/28/19 Vital Signs Most recent to oldest [Reference Range]: 1 Height 152 cm (07/28/19 3:01 PM) Weight 65.7 kg (07/28/19 3:01 PM) Oxygen Saturation [94-100 %] 99 % (07/28/19 3:01 PM) Pulse Rate [55-90 bpm] 108 bpm *H* (07/28/19 3:01 PM) Body Mass Index [18.5-24.99] 28.44 *H* (07/28/19 3:01 PM) Blood Pressure [90-138/55-84 mm Hg] 118/ 80mm Hg (07/28/19 3:01 PM) Mode of Delivery (Oxygen) Room air (07/28/19 3:01 PM) Blood pressure sites Arm, left (07/28/19 3:01 PM) Weight Obtained Via Standing scale (07/28/19 3:01 PM) Social History Social History Type Response Smoking Status Never smoker entered on: 10/24/17 Sex
--- OUTSIDE RECORDS SUMMARY | 2024-05-20 07:38 | XMS_ITS | Continuity of Care Document ---
Author Organization [facility] Address [address] [place] [address]- Care Team Providers Care Aquatics Assistant Department Head Name Role Phone Karthik HENLEY, Isaiah Douglas Primary Care Physician Encounter [facility] Date(s): 11/14/21 - 12/14/21 [facility] [address] [place] [address]- Allergies, Adverse Reactions, Alerts Substance Reaction Severity [...] Parent Or Guardian Refuses 1Result Comment: [facility]-[id number] 2Location History: [facility] [place] 3Result Comment: [11/26/2016] [facility] 4Result Comment: [11/26/2016] [facility] 5Result Comment: [11/26/2016] [facility] 6Result Comment: [11/26/2016] [facility] 7Result Comment: [11/26/2016] [facility] 8Result Comment: [11/26/2016] [facility] 9Result Comment: [11/26/2016] [facility] 10Result Comment: [11/26/2016] [facility] 11Result Comment: [11/26/2016] [facility] 12Result Comment: [11/26/2016] [facility] 13Result Comment: [11/26/2016] [facility] 14Result Comment: [11/26/2016] [facility] 15Result Comment: [11/26/2016] [facility] 16Result Comment: [11/26/2016] [facility] 17Result Comment: [11/26/2016] [facility] 18Result Comment: [11/26/2016] [facility] 19Result Comment: [11/26/2016] [facility] 20Result Comment: [11/26/2016] [facility] 21Result Comment: [11/26/2016] [facility] 22Result Comment: [11/26/2016] [facility] 23Result Comment: [11/26/2016] [facility] 24Result Comment: [11/26/2016] [facility] 25Result Comment: [11/26/2016] [facility] 26Result Comment: [11/26/2016] [facility] 27Result Comment: [11/26/2016] [facility] 28Result Comment: [11/26/2016] [facility] 29Result Comment: [11/26/2016] [facility] 30Result Comment: [11/26/2016] [facility] 31Result Comment: [11/26/2016] [facility] 32Result Comment: [11/26/2016] [facility] 33Result Comment: [11/26/2016] [facility] Medications calcium (as carbonate) 500 mg [...]
--- OUTSIDE RECORDS SUMMARY | 2024-05-20 07:38 | XMS_ITS | Continuity of Care Document ---
Author Organization [facility] Address [address] [place] [address]- Care Team Providers Care Aerial Sprayer Name Role Phone Isaiah Angeles MD Primary Care Physician Encounter [facility] Date(s): 01/03/23 - 02/17/23 [facility] [address] [place] [address], [place] [address] Attending Physician: Isaiah Angeles MD Admitting Physician: Isaiah Angeles MD Referring Physician: Alice Alonso DDS Allergies, Adverse Reactions, [...] Reason tetanus-diphtheria toxoids (Td) 1 08/15/22 Given [id number] bivalent booster vax 07/05/22 Recorded influenza virus [...] Given Parent Or Guardian Refuses 1Result Comment: [id number] 2Result Comment: [facility] [place] 3Result Comment: [id number] 4Location History: [facility] [place] 5Result Comment: [11/26/2016] [facility] 6Result Comment: [11/26/2016] [facility] 7Result Comment: [11/26/2016] [facility] 8Result Comment: [11/26/2016] [facility] 9Result Comment: [11/26/2016] [facility] 10Result Comment: [11/26/2016] [facility] 11Result Comment: [11/26/2016] [facility] 12Result Comment: [11/26/2016] [facility] 13Result Comment: [11/26/2016] [facility] 14Result Comment: [11/26/2016] [facility] 15Result Comment: [11/26/2016] [facility] 16Result Comment: [11/26/2016] [facility] 17Result Comment: [11/26/2016] [facility] 18Result Comment: [11/26/2016] [facility] 19Result Comment: [11/26/2016] [facility] 20Result Comment: [11/26/2016] [facility] 21Result Comment: [11/26/2016] [facility] 22Result Comment: [11/26/2016] [facility] 23Result Comment: [11/26/2016] [facility] 24Result Comment: [11/26/2016] [facility] 25Result Comment: [11/26/2016] [facility] 26Result Comment: [11/26/2016] [facility] 27Result Comment: [11/26/2016] [facility] 28Result Comment: [11/26/2016] [facility] 29Result Comment: [11/26/2016] [facility] 30Result Comment: [11/26/2016] [facility] 31Result Comment: [11/26/2016] [facility] 32Result Comment: [11/26/2016] [facility] 33Result Comment: [11/26/2016] [facility] 34Result Comment: [11/26/2016] [facility] 35Result Comment: [11/26/2016] [facility] Medications Budesonide 1 mg, 1mg/2ml, Refills [...] Team Personnel Name: Margaux Vivas RN Position: [facility] RN Member Role: Primary Care Nurse Name: Live Leyva MD Position: [facility] Physician -Physician Practices Member Role: Lifetime Consulting Physician Name: Jeanmarie Lopez MD Position: [facility] Renal MD Member Role: Lifetime Consulting Physician Address: Address: [address] [place] [address], [address] [facility] [address] Name: Lashonda Clifford Position: [facility] Outreach Member Role: Lifetime Consulting Physician Name: Isaiah Angeles MD Position: [facility] Physician - Primary Care Member Role: PCP Address: Address: [address] [place] [phone]- [place] Name: Annalise Lara RN Position: S RN Member Role: Primary Care Nurse Name: Mark Wilkes MD Position: [facility] Renal MD Member Role: Lifetime Consulting Physician Address: Address: [address] [place] [address] [facility] [place], [place] [address] Name: Bibiana Treviño RN Position: [facility] RN Member Role: Primary Care Nurse Care Team Related Persons Name: MIRA MILLER Address: [address] [phone] Name: MIRA MILLER Address: [place] [phone] Name: MIRA MILLER Address: [address] [id number] Name: ANGELA MIRA Address: [address] [phone] Name: MIRA MILLER Address: [place] [phone] Name: MIRA MILLER Address: [address] [phone] Name: MIRA MILLER Address: [place] [phone] Name: PRATEEK MILLER Address: [address] [address] Name: BELEN MILLER Address: home [address] [place] [address] Name: BELEN MILLER Address: [address] [address]
--- OUTSIDE RECORDS SUMMARY | 2024-05-20 07:38 | XMS_ITS | Continuity of Care Document ---
Author Organization [facility] Address [address] [place] [address]- Care Team Providers Care Data Analytics Specialist Name Role Phone Karthik HENLEY, Isaiha Douglas Primary Care Physician [phone] [place] Date[place]s): 08/22/21 - 09/21/21 [facility] Adult [address] [place] [address]- Allergies, Adverse Reactions, Alerts Substance Reaction Severity [...] Given Parent Or Guardian Refuses 1Result Comment: [facility]-[id number] 2Location History: [facility] [place] 3Result Comment: [11/26/2016] [facility] 4Result Comment: [11/26/2016] [facility] 5Result Comment: [11/26/2016] [facility] 6Result Comment: [11/26/2016] [facility] 7Result Comment: [11/26/2016] [facility] 8Result Comment: [11/26/2016] [facility] 9Result Comment: [11/26/2016] [facility] 10Result Comment: [11/26/2016] [facility] 11Result Comment: [11/26/2016] [facility] 12Result Comment: [11/26/2016] [facility] 13Result Comment: [11/26/2016] [facility] 14Result Comment: [11/26/2016] [facility] 15Result Comment: [11/26/2016] [facility] 16Result Comment: [11/26/2016] [facility] 17Result Comment: [11/26/2016] [facility] 18Result Comment: [11/26/2016] [facility] 19Result Comment: [11/26/2016] [facility] 20Result Comment: [11/26/2016] [facility] 21Result Comment: [11/26/2016] [facility] 22Result Comment: [11/26/2016] [facility] 23Result Comment: [11/26/2016] [facility] 24Result Comment: [11/26/2016] [facility] 25Result Comment: [11/26/2016] [facility] 26Result Comment: [11/26/2016] [facility] 27Result Comment: [11/26/2016] [facility] 28Result Comment: [11/26/2016] [facility] 29Result Comment: [11/26/2016] [facility] 30Result Comment: [11/26/2016] [facility] 31Result Comment: [11/26/2016] [facility] 32Result Comment: [11/26/2016] [facility] 33Result Comment: [11/26/2016] [facility] Medications lidocaine 4% topical film 1 [...]
--- OUTSIDE RECORDS SUMMARY | 2024-05-20 07:38 | XMS_ITS | Continuity of Care Document ---
Author Organization [facility] Address [address] [place] [address]- Care Team Providers Care Edger Tailer Name Role Phone Karthik HENLEY, Isaiah Douglas Primary Care Physician Encounter [facility] Date(s): 10/10/21 - 11/09/21 [facility] Adult [address] [place] [address]- Allergies, Adverse Reactions, Alerts Substance Reaction Severity [...] Given Parent Or Guardian Refuses 1Result Comment: [facility]-[id number] 2Location History: [facility] [place] 3Result Comment: [11/26/2016] [facility] 4Result Comment: [11/26/2016] [facility] 5Result Comment: [11/26/2016] [facility] 6Result Comment: [11/26/2016] [facility] 7Result Comment: [11/26/2016] [facility] 8Result Comment: [11/26/2016] [facility] 9Result Comment: [11/26/2016] [facility] 10Result Comment: [11/26/2016] [facility] 11Result Comment: [11/26/2016] [facility] 12Result Comment: [11/26/2016] [facility] 13Result Comment: [11/26/2016] [facility] 14Result Comment: [11/26/2016] [facility] 15Result Comment: [11/26/2016] [facility] 16Result Comment: [11/26/2016] [facility] 17Result Comment: [11/26/2016] [facility] 18Result Comment: [11/26/2016] [facility] 19Result Comment: [11/26/2016] [facility] 20Result Comment: [11/26/2016] [facility] 21Result Comment: [11/26/2016] [facility] 22Result Comment: [11/26/2016] [facility] 23Result Comment: [11/26/2016] [facility] 24Result Comment: [11/26/2016] [facility] 25Result Comment: [11/26/2016] [facility] 26Result Comment: [11/26/2016] [facility] 27Result Comment: [11/26/2016] [facility] 28Result Comment: [11/26/2016] [facility] 29Result Comment: [11/26/2016] [facility] 30Result Comment: [11/26/2016] [facility] 31Result Comment: [11/26/2016] [facility] 32Result Comment: [11/26/2016] [facility] 33Result Comment: [11/26/2016] [facility] Medications lidocaine 4% topical film 1 [...]
--- OUTSIDE RECORDS SUMMARY | 2024-05-20 07:38 | XMS_ITS | Continuity of Care Document ---
Author Organization [facility] Address [address] [place] [address]- Care Team Providers Care Income Tax Advisor Name Role Phone Karthik HENLEY, Isaiah Douglas Primary Care Physician Encounter [facility] Date(s): 05/23/22 - 06/22/22 [facility] [address] [place] [id number] Allergies, Adverse Reactions, Alerts Substance Reaction [...] Comment: [facility] [place] 2Result Comment: [facility]-[id number] 3Location History: [facility] [place] 4Result Comment: [11/26/2016] [facility] 5Result Comment: [11/26/2016] [facility] 6Result Comment: [11/26/2016] [facility] 7Result Comment: [11/26/2016] [facility] 8Result Comment: [11/26/2016] [facility] 9Result Comment: [11/26/2016] [facility] 10Result Comment: [11/26/2016] [facility] 11Result Comment: [11/26/2016] [facility] 12Result Comment: [11/26/2016] [facility] 13Result Comment: [11/26/2016] [facility] 14Result Comment: [11/26/2016] [facility] 15Result Comment: [11/26/2016] [facility] 16Result Comment: [11/26/2016] [facility] 17Result Comment: [11/26/2016] [facility] 18Result Comment: [11/26/2016] [facility] 19Result Comment: [11/26/2016] [facility] 20Result Comment: [11/26/2016] [facility] 21Result Comment: [11/26/2016] [facility] 22Result Comment: [11/26/2016] [facility] 23Result Comment: [11/26/2016] [facility] 24Result Comment: [11/26/2016] [facility] 25Result Comment: [11/26/2016] [facility] 26Result Comment: [11/26/2016] [facility] 27Result Comment: [11/26/2016] [facility] 28Result Comment: [11/26/2016] [facility] 29Result Comment: [11/26/2016] [facility] 30Result Comment: [11/26/2016] [facility] 31Result Comment: [11/26/2016] [facility] 32Result Comment: [11/26/2016] [facility] 33Result Comment: [11/26/2016] [facility] 34Result Comment: [11/26/2016] [facility] Medications Flovent 110 mcg Inhaler HFA [...] Personnel Name: Isaiah Angeles MD Address: Address: [address] [place] [address]- [place]
--- OUTSIDE RECORDS SUMMARY | 2024-05-20 07:38 | XMS_ITS | Continuity of Care Document ---
Author Organization [facility] Address [address] [place] [address]- Care Team Providers Care Legal Counsel Name Role Phone Karthik HENLEY, Isaiah Douglas Primary Care Physician [phone] Encounter [facility] Date(s): 03/10/20 - 04/09/20 [facility] Adult [address] [place] [address]- [facility] Allergies, Adverse Reactions, Alerts Substance Reaction Severity [...] Parent Or Guardian Refuses 1Result Comment: [facility]-[id number] 2Location History: [facility] [place] 3Result Comment: [11/26/2016] [facility] 4Result Comment: [11/26/2016] [facility] 5Result Comment: [11/26/2016] [facility] 6Result Comment: [11/26/2016] [facility] 7Result Comment: [11/26/2016] [facility] 8Result Comment: [11/26/2016] [facility] 9Result Comment: [11/26/2016] [facility] 10Result Comment: [11/26/2016] [facility] 11Result Comment: [11/26/2016] [facility] 12Result Comment: [11/26/2016] [facility] 13Result Comment: [11/26/2016] [facility] 14Result Comment: [11/26/2016] [facility] 15Result Comment: [11/26/2016] [facility] 16Result Comment: [11/26/2016] [facility] 17Result Comment: [11/26/2016] [facility] 18Result Comment: [11/26/2016] [facility] 19Result Comment: [11/26/2016] [facility] 20Result Comment: [11/26/2016] [facility] 21Result Comment: [11/26/2016] [facility] 22Result Comment: [11/26/2016] [facility] 23Result Comment: [11/26/2016] [facility] 24Result Comment: [11/26/2016] [facility] 25Result Comment: [11/26/2016] [facility] 26Result Comment: [11/26/2016] [facility] 27Result Comment: [11/26/2016] [facility] 28Result Comment: [11/26/2016] [facility] 29Result Comment: [11/26/2016] [facility] 30Result Comment: [11/26/2016] [facility] 31Result Comment: [11/26/2016] [facility] 32Result Comment: [11/26/2016] [facility] 33Result Comment: [11/26/2016] [facility] Medications acetaminophen-oxyCODONE 325 mg-5 mg oral [...]
--- OUTSIDE RECORDS SUMMARY | 2024-05-20 07:38 | XMS_ITS | Continuity of Care Document ---
Author Organization [facility] Address [address] [place] [address]- Care Team Providers Care Menagerie Superintendent Name Role Phone Karthik HENLEY, Isaiah Douglas Primary Care Physician En[facility] Date(s): 07/09/23 - 08/08/23 [facility] [address] [place] [id number] Allergies, Adverse Reactions, Alerts Substance [...] corded tetanus-diphtheria toxoids (Td) 10 08/15/22 Given [id number] bivalent booster vax 07/05/22 Recorded SARS-CoV-2 (COVID-19) [...] Comment: [facility] [place] 2Result Comment: [facility]-[id number] 3Location History: [facility] [place] 4Result Comment: [11/26/2016] [facility] 5Result Comment: [11/26/2016] [facility] 6Result Comment: [11/26/2016] [facility] 7Result Comment: [11/26/2016] [facility] 8Result Comment: [11/26/2016] [facility] 9Result Comment: [11/26/2016] [facility] 10Result Comment: [id number] 11Result Comment: [11/26/2016] [facility] 12Result Comment: [11/26/2016] [facility] 13Result Comment: [11/26/2016] [facility] 14Result Comment: [11/26/2016] [facility] 15Result Comment: [11/26/2016] [facility] 16Result Comment: [11/26/2016] [facility] 17Result Comment: [11/26/2016] [facility] 18Result Comment: [11/26/2016] [facility] 19Result Comment: [11/26/2016] [facility] 20Result Comment: [11/26/2016] [facility] 21Result Comment: [11/26/2016] [facility] 22Result Comment: [11/26/2016] [facility] 23Result Comment: [11/26/2016] [facility] 24Result Comment: [11/26/2016] [facility] 25Result Comment: [11/26/2016] [facility] 26Result Comment: [11/26/2016] [facility] 27Result Comment: [11/26/2016] [facility] 28Result Comment: [11/26/2016] [facility] 29Result Comment: [11/26/2016] [facility] 30Result Comment: [11/26/2016] [facility] 31Result Comment: [11/26/2016] [facility] 32Result Comment: [11/26/2016] [facility] 33Result Comment: [11/26/2016] [facility] 34Result Comment: [11/26/2016] [facility] 35Result Comment: [11/26/2016] [facility] Medications Flovent 110 mcg Inhaler HFA [...] Team Personnel Name: Margaux Vivas RN Position: [facility] RN Member Role: Primary Care Nurse Name: Live Leyva MD Position: [facility] Physician -Physician Practices Member Role: Lifetime Consulting Physician Name: Jeanmarie Lopez MD Position: [facility] Renal MD Member Role: Lifetime Consulting Physician Address: Address: [address] [place] [address] [address] [place] [address]- Name: Lashonda Clifford Position: [facility] Outreach Member Role: Lifetime Consulting Physician Name: Tiera Wadsworth RN Position: [facility] RN Member Role: Primary Care Nurse Name: Isaiah Angeles MD Position: [facility] Physician - Primary Care Member Role: PCP Address: Address: [address] [place] [phone]- [place] Name: Annalise Lara RN Position: S RN Member Role: Primary Care Nurse Name: Mark Wilkes MD Position: [facility] Renal MD Member Role: Lifetime Consulting Physician Address: Address: [address] [place] [address] [facility] [place] [address]- [place] Name: Bibiana Treviño RN Position: S RN Member Role: Primary Care Nurse Care Team Related Persons Name: MIRA MILLER Address: home [address] [place] [phone] Name: MIRA MILLER Address: [place] Address: home [address] [place] [address] [place] Name: PRATEEK MILLER Address: home [address] [place] [address] Name: BELEN MILLER Address: home [address] [place] [address] Name: BELEN MILLER Address: home [address] [place] [address]
--- OUTSIDE RECORDS SUMMARY | 2024-05-20 07:38 | XMS_ITS | Continuity of Care Document ---
Author Organization [facility] I[facility] Address [address] [place] [address]- Care Team Providers Care Assistant Librarian Name Role Phone Karthik HENLEY, Isaiah Douglas Primary Care Physician Encounter [facility] Date(s): 05/27/20 - 06/26/20 [facility] Adult [address] [place] [address]- Allergies, Adverse Reactions, Alerts Substance Reaction Severity [...] Parent Or Guardian Refuses 1Result Comment: [facility]-[id number] 2Location History: [facility] [place] 3Result Comment: [11/26/2016] [facility] 4Result Comment: [11/26/2016] [facility] 5Result Comment: [11/26/2016] [facility] 6Result Comment: [11/26/2016] [facility] 7Result Comment: [11/26/2016] [facility] 8Result Comment: [11/26/2016] [facility] 9Result Comment: [11/26/2016] [facility] 10Result Comment: [11/26/2016] [facility] 11Result Comment: [11/26/2016] [facility] 12Result Comment: [11/26/2016] [facility] 13Result Comment: [11/26/2016] [facility] 14Result Comment: [11/26/2016] [facility] 15Result Comment: [11/26/2016] [facility] 16Result Comment: [11/26/2016] [facility] 17Result Comment: [11/26/2016] [facility] 18Result Comment: [11/26/2016] [facility] 19Result Comment: [11/26/2016] [facility] 20Result Comment: [11/26/2016] [facility] 21Result Comment: [11/26/2016] [facility] 22Result Comment: [11/26/2016] [facility] 23Result Comment: [11/26/2016] [facility] 24Result Comment: [11/26/2016] [facility] 25Result Comment: [11/26/2016] [facility] 26Result Comment: [11/26/2016] [facility] 27Result Comment: [11/26/2016] [facility] 28Result Comment: [11/26/2016] [facility] 29Result Comment: [11/26/2016] [facility] 30Result Comment: [11/26/2016] [facility] 31Result Comment: [11/26/2016] [facility] 32Result Comment: [11/26/2016] [facility] 33Result Comment: [11/26/2016] [facility] Medications Flovent HFA 110 mcg/inh inhalation [...] 4 Refills, Maintenance, 02/26/20 12:05:00 EDT, Tablet, [facility], 153, cm, 02/26/20 12:03:00 EDT, Height, 62, kg, 01/02/20 11:03:00 EDT, Dry Weight Start Date: 02/26/20 Status: Ordered lisinopril 20 mg oral tablet 20 mg, 1, tablet, By Mouth, Daily, # 30 tablet, Refills 0, Tot. Refills 0, Maintenance, 05/05/20 7:46:00 EDT, Route to Pharmacy Electronically, [facility], 153, cm, 05/05/20 7:32:00 EDT, [...]
--- OUTSIDE RECORDS SUMMARY | 2024-05-20 07:38 | XMS_ITS | Continuity of Care Document ---
Author Organization [facility] Ethan lt Address [address] [place] [address]- Care Team Providers Care Exceptional Children Teacher Name Role Phone Isaiah Angeles MD Primary Care Physician Encounter [facility] Date(s): 02/03/21 - 02/10/21 [facility] Adult [address] [place] [address]- Attending Physician: Isaiah Angeles MD Allergies, Adverse [...] Given Parent Or Guardian Refuses 1Result Comment: [facility]-[id number] 2Location History: [facility] [place] 3Result Comment: [11/26/2016] [facility] 4Result Comment: [11/26/2016] [facility] 5Result Comment: [11/26/2016] [facility] 6Result Comment: [11/26/2016] [facility] 7Result Comment: [11/26/2016] [facility] 8Result Comment: [11/26/2016] [facility] 9Result Comment: [11/26/2016] [facility] 10Result Comment: [11/26/2016] [facility] 11Result Comment: [11/26/2016] [facility] 12Result Comment: [11/26/2016] [facility] 13Result Comment: [11/26/2016] [facility] 14Result Comment: [11/26/2016] [facility] 15Result Comment: [11/26/2016] [facility] 16Result Comment: [11/26/2016] [facility] 17Result Comment: [11/26/2016] [facility] 18Result Comment: [11/26/2016] [facility] 19Result Comment: [11/26/2016] [facility] 20Result Comment: [11/26/2016] [facility] 21Result Comment: [11/26/2016] [facility] 22Result Comment: [11/26/2016] [facility] 23Result Comment: [11/26/2016] [facility] 24Result Comment: [11/26/2016] [facility] 25Result Comment: [11/26/2016] [facility] 26Result Comment: [11/26/2016] [facility] 27Result Comment: [11/26/2016] [facility] 28Result Comment: [11/26/2016] [facility] 29Result Comment: [11/26/2016] [facility] 30Result Comment: [11/26/2016] [facility] 31Result Comment: [11/26/2016] [facility] 32Result Comment: [11/26/2016] [facility] 33Result Comment: [11/26/2016] [facility] Medications levothyroxine 125 mcg (0.125 mg) [...] oldest [Reference Range]: 1 Height 155 cm (02/03/21 9:26 AM) Weight 67.8 kg (02/03/21 9:26 AM) Oxygen Saturation [94-100 %] 98 % (02/03/21 9:26 AM) Pulse Rate [55-90 bpm] 96 bpm *H* (02/03/21 9:26 AM) Body Mass Index [18.5-24.99] 28.22 *H* (02/03/21 9:26 AM) Blood Pressure [90-138/55-84 mm Hg] 110/ 70mm Hg (02/03/21 9:26 AM) Temperature [96.8-100.4 DegF] 97.8 DegF (02/03/21 9:26 AM) Mode of Delivery (Oxygen) Room air (02/03/21 9:26 AM) Blood pressure sites Arm, right (02/03/21 9:26 AM) Temperature Route Oral (02/03/21 9:26 AM) Weight Obtained Via Standing scale (02/03/21 9:26 AM) Social History Social History Type Response Smoking Status Never smoker entered on: 10/24/17 Sex
--- OUTSIDE RECORDS SUMMARY | 2024-05-20 07:38 | XMS_ITS | Continuity of Care Document ---
Author Organization [facility] Address [address] [place] [address]- Care Team Providers Care Commercial Tire Service Technician Name Role Phone Karthik HENLEY, Isaiah Douglas Primary Care Physician [phone] Encounter [facility] [place] Date(s): 05/24/22 - 06/23/22 [facility] [address] [place] [id number] Attending Physician: Segundo Martinez Admitting Physician: Segundo Martinez Referring Physician: AdmtrSegundo Allergies, Adverse Reactions, Alerts [...] Comment: [facility] [place] 2Result Comment: [facility]-[id number] 3Location History: [facility] [place] 4Result Comment: [11/26/2016] [facility] 5Result Comment: [11/26/2016] [facility] 6Result Comment: [11/26/2016] [facility] 7Result Comment: [11/26/2016] [facility] 8Result Comment: [11/26/2016] [facility] 9Result Comment: [11/26/2016] [facility] 10Result Comment: [11/26/2016] [facility] 11Result Comment: [11/26/2016] [facility] 12Result Comment: [11/26/2016] [facility] 13Result Comment: [11/26/2016] [facility] 14Result Comment: [11/26/2016] [facility] 15Result Comment: [11/26/2016] [facility] 16Result Comment: [11/26/2016] [facility] 17Result Comment: [11/26/2016] [facility] 18Result Comment: [11/26/2016] [facility] 19Result Comment: [11/26/2016] [facility] 20Result Comment: [11/26/2016] [facility] 21Result Comment: [11/26/2016] [facility] 22Result Comment: [11/26/2016] [facility] 23Result Comment: [11/26/2016] [facility] 24Result Comment: [11/26/2016] [facility] 25Result Comment: [11/26/2016] [facility] 26Result Comment: [11/26/2016] [facility] 27Result Comment: [11/26/2016] [facility] 28Result Comment: [11/26/2016] [facility] 29Result Comment: [11/26/2016] [facility] 30Result Comment: [11/26/2016] [facility] 31Result Comment: [11/26/2016] [facility] 32Result Comment: [11/26/2016] [facility] 33Result Comment: [11/26/2016] [facility] 34Result Comment: [11/26/2016] [facility] Medications Flovent 110 mcg Inhaler HFA [...] Name: Karthik HENLEY, Isaiah Douglas Address: Address: [address] [place] [id number]
--- OUTSIDE RECORDS SUMMARY | 2024-05-20 07:38 | XMS_ITS | Continuity of Care Document ---
Author Organization [facility] Address [address] [place] [address]- Care Team Providers Care Pro Shop Attendant Name Role Phone Karthik HENLEY, Isaiah Douglas Primary Care Physician Encounter [facility] [place] Date(s): 03/22/21 - 04/21/21 [facility] [address] [place] [address]- [place] Allergies, Adverse Reactions, Alerts Substance Reaction [...] Refuses 1Result Comment: [facility]-[id number] [facility] 3Result Comment: [11/26/2016] [facility] 4Result Comment: [11/26/2016] [facility] 5Result Comment: [11/26/2016] [facility] 6Result Comment: [11/26/2016] [facility] 7Result Comment: [11/26/2016] [facility] 8Result Comment: [11/26/2016] [facility] 9Result Comment: [11/26/2016] [facility] 10Result Comment: [11/26/2016] [facility] 11Result Comment: [11/26/2016] [facility] 12Result Comment: [11/26/2016] [facility] 13Result Comment: [11/26/2016] [facility] 14Result Comment: [11/26/2016] [facility] 15Result Comment: [11/26/2016] [facility] 16Result Comment: [11/26/2016] [facility] 17Result Comment: [11/26/2016] [facility] 18Result Comment: [11/26/2016] [facility] 19Result Comment: [11/26/2016] [facility] 20Result Comment: [11/26/2016] [facility] 21Result Comment: [11/26/2016] [facility] 22Result Comment: [11/26/2016] [facility] 23Result Comment: [11/26/2016] [facility] 24Result Comment: [11/26/2016] [facility] 25Result Comment: [11/26/2016] [facility] 26Result Comment: [11/26/2016] [facility] 27Result Comment: [11/26/2016] [facility] 28Result Comment: [11/26/2016] [facility] 29Result Comment: [11/26/2016] [facility] 30Result Comment: [11/26/2016] [facility] 31Result Comment: [11/26/2016] [facility] 32Result Comment: [11/26/2016] [facility] 33Result Comment: [11/26/2016] [facility] Medications levothyroxine 125 mcg (0.125 mg) [...]
--- OUTSIDE RECORDS SUMMARY | 2024-05-20 07:38 | XMS_ITS | Continuity of Care Document ---
Author Organization [facility] Address [address] [place] [address]- Care Team Providers Care Director Of Research And Development Name Role Phone Karthik HENLEY, Isaiah Douglas Primary Care Physician Encounter [facility] [place] [facility] [place] [id number] Date(s): 11/01/21 - 12/01/21 [facility] [address] [place] [address]- Attending Physician: Segundo Martinez Admitting Physician: AdmtrSegundo Referring Physician: Admtr, Ar8 Allergies, Adverse Reactions, [...] Or Guardian Refuses 1Result Comment: [facility]-[id number] 2Location History: [facility] [place] 3Result Comment: [11/26/2016] [facility] 4Result Comment: [11/26/2016] [facility] 5Result Comment: [11/26/2016] [facility] 6Result Comment: [11/26/2016] [facility] 7Result Comment: [11/26/2016] [facility] 8Result Comment: [11/26/2016] [facility] 9Result Comment: [11/26/2016] [facility] 10Result Comment: [11/26/2016] [facility] 11Result Comment: [11/26/2016] [facility] 12Result Comment: [11/26/2016] [facility] 13Result Comment: [11/26/2016] [facility] 14Result Comment: [11/26/2016] [facility] 15Result Comment: [11/26/2016] [facility] 16Result Comment: [11/26/2016] [facility] 17Result Comment: [11/26/2016] [facility] 18Result Comment: [11/26/2016] [facility] 19Result Comment: [11/26/2016] [facility] 20Result Comment: [11/26/2016] [facility] 21Result Comment: [11/26/2016] [facility] 22Result Comment: [11/26/2016] [facility] 23Result Comment: [11/26/2016] [facility] 24Result Comment: [11/26/2016] [facility] 25Result Comment: [11/26/2016] [facility] 26Result Comment: [11/26/2016] [facility] 27Result Comment: [11/26/2016] [facility] 28Result Comment: [11/26/2016] [facility] 29Result Comment: [11/26/2016] [facility] 30Result Comment: [11/26/2016] [facility] 31Result Comment: [11/26/2016] [facility] 32Result Comment: [11/26/2016] [facility] 33Result Comment: [11/26/2016] [facility] Medications calcium (as carbonate) 500 mg [...]
--- OUTSIDE RECORDS SUMMARY | 2024-05-20 07:38 | XMS_ITS | Continuity of Care Document ---
Author Organization [facility] Address [address] [place] [address]- Care Team Providers Care Scaffold Setter Name Role Phone Isaiah Angeles MD Primary Care Physician [phone] [place] [facility] [place] 10/07/20 - 10/14/20 [facility] Adult [address] [place] [address]- Attending Physician: Isaiah Angeles MD Allergies, Adverse [...] Guardian Refuses 1Result Comment: [facility]-[id number] 2Location History: [facility] [place] 3Result Comment: [11/26/2016] [facility] 4Result Comment: [11/26/2016] [facility] 5Result Comment: [11/26/2016] [facility] 6Result Comment: [11/26/2016] [facility] 7Result Comment: [11/26/2016] [facility] 8Result Comment: [11/26/2016] [facility] 9Result Comment: [11/26/2016] [facility] 10Result Comment: [11/26/2016] [facility] 11Result Comment: [11/26/2016] [facility] 12Result Comment: [11/26/2016] [facility] 13Result Comment: [11/26/2016] [facility] 14Result Comment: [11/26/2016] [facility] 15Result Comment: [11/26/2016] [facility] 16Result Comment: [11/26/2016] [facility] 17Result Comment: [11/26/2016] [facility] 18Result Comment: [11/26/2016] [facility] 19Result Comment: [11/26/2016] [facility] 20Result Comment: [11/26/2016] [facility] 21Result Comment: [11/26/2016] [facility] 22Result Comment: [11/26/2016] [facility] 23Result Comment: [11/26/2016] [facility] 24Result Comment: [11/26/2016] [facility] 25Result Comment: [11/26/2016] [facility] 26Result Comment: [11/26/2016] [facility] 27Result Comment: [11/26/2016] [facility] 28Result Comment: [11/26/2016] [facility] 29Result Comment: [11/26/2016] [facility] 30Result Comment: [11/26/2016] [facility] 31Result Comment: [11/26/2016] [facility] 32Result Comment: [11/26/2016] [facility] 33Result Comment: [11/26/2016] [facility] Medications lidocaine 4% topical film 1 [...]
--- OUTSIDE RECORDS SUMMARY | 2024-05-20 07:38 | XMS_ITS | Continuity of Care Document ---
Author Organization [facility] Address [address] [place] [address]- Care Team Providers Care Magnetizer Name Role Phone Isaiah Angeles MD Primary Care Physician [phone] Encounter [facility] [place] Date(s): 12/02/20 - 12/09/20 [facility] Adult [address] [place] [address]- Attending Physician: Isaiah Angeles MD Allergies, Adverse [...] Refuses 1Result Comment: [facility]-[id number] 2Location History: [facility] [place] 3Result Comment: [11/26/2016] [facility] 4Result Comment: [11/26/2016] [facility] 5Result Comment: [11/26/2016] [facility] 6Result Comment: [11/26/2016] [facility] 7Result Comment: [11/26/2016] [facility] 8Result Comment: [11/26/2016] [facility] 9Result Comment: [11/26/2016] [facility] 10Result Comment: [11/26/2016] [facility] 11Result Comment: [11/26/2016] [facility] 12Result Comment: [11/26/2016] [facility] 13Result Comment: [11/26/2016] [facility] 14Result Comment: [11/26/2016] [facility] 15Result Comment: [11/26/2016] [facility] 16Result Comment: [11/26/2016] [facility] 17Result Comment: [11/26/2016] [facility] 18Result Comment: [11/26/2016] [facility] 19Result Comment: [11/26/2016] [facility] 20Result Comment: [11/26/2016] [facility] 21Result Comment: [11/26/2016] [facility] 22Result Comment: [11/26/2016] [facility] 23Result Comment: [11/26/2016] [facility] 24Result Comment: [11/26/2016] [facility] 25Result Comment: [11/26/2016] [facility] 26Result Comment: [11/26/2016] [facility] 27Result Comment: [11/26/2016] [facility] 28Result Comment: [11/26/2016] [facility] 29Result Comment: [11/26/2016] [facility] 30Result Comment: [11/26/2016] [facility] 31Result Comment: [11/26/2016] [facility] 32Result Comment: [11/26/2016] [facility] 33Result Comment: [11/26/2016] [facility] Medications lidocaine 4% topical film 1 [...]
--- OUTSIDE RECORDS SUMMARY | 2024-05-20 07:38 | XMS_ITS | Continuity of Care Document ---
Author Organization [facility] Address [address] [place] [address]- Care Team Providers Care Railroad Worker Name Role Phone Karthik HENLEY, Isaiah Douglas Primary Care Physician Encounter [facility] Date(s): 02/26/20 - 03/27/20 [facility] [address] [place] [address]- [facility] Attending Physician: Segundo Martinez Admitting Physician: [...] Parent Or Guardian Refuses 1Result Comment: [facility]-[id number] 2Location History: [facility] [place] 3Result Comment: [11/26/2016] [facility] 4Result Comment: [11/26/2016] [facility] 5Result Comment: [11/26/2016] [facility] 6Result Comment: [11/26/2016] [facility] 7Result Comment: [11/26/2016] [facility] 8Result Comment: [11/26/2016] [facility] 9Result Comment: [11/26/2016] [facility] 10Result Comment: [11/26/2016] [facility] 11Result Comment: [11/26/2016] [facility] 12Result Comment: [11/26/2016] [facility] 13Result Comment: [11/26/2016] [facility] 14Result Comment: [11/26/2016] [facility] 15Result Comment: [11/26/2016] [facility] 16Result Comment: [11/26/2016] [facility] 17Result Comment: [11/26/2016] [facility] 18Result Comment: [11/26/2016] [facility] 19Result Comment: [11/26/2016] [facility] 20Result Comment: [11/26/2016] [facility] 21Result Comment: [11/26/2016] [facility] 22Result Comment: [11/26/2016] [facility] 23Result Comment: [11/26/2016] [facility] 24Result Comment: [11/26/2016] [facility] 25Result Comment: [11/26/2016] [facility] 26Result Comment: [11/26/2016] [facility] 27Result Comment: [11/26/2016] [facility] 28Result Comment: [11/26/2016] [facility] 29Result Comment: [11/26/2016] [facility] 30Result Comment: [11/26/2016] [facility] 31Result Comment: [11/26/2016] [facility] 32Result Comment: [11/26/2016] [facility] 33Result Comment: [11/26/2016] [facility] Medications Flovent HFA 110 mcg/inh inhalation [...]
--- OUTSIDE RECORDS SUMMARY | 2024-05-20 07:38 | XMS_ITS | Continuity of Care Document ---
Author Organization [facility] Address [address] [place] [address]- Care Team Providers Care Manager Custom Name Role Phone Karthik HENLEY, Isaiah Douglas Primary Care Physician Encounter [facility] Date(s): 10/17/23 - 11/16/23 [facility] [address] [place] [address]- [place] Allergies, Adverse Reactions, Alerts Substance Reaction [...] corded tetanus-diphtheria toxoids (Td) 10 08/15/22 Given [id number] bivalent booster vax 07/05/22 Recorded SARS-CoV-2 (COVID-19) [...] Comment: [facility] [place] 2Result Comment: [facility]-[id number] 3Location History: [facility] [place] 4Result Comment: [11/26/2016] [facility] 5Result Comment: [11/26/2016] [facility] 6Result Comment: [11/26/2016] [facility] 7Result Comment: [11/26/2016] [facility] 8Result Comment: [11/26/2016] [facility] 9Result Comment: [11/26/2016] [facility] 10Result Comment: [id number] 11Result Comment: [11/26/2016] [facility] 12Result Comment: [11/26/2016] [facility] 13Result Comment: [11/26/2016] [facility] 14Result Comment: [11/26/2016] [facility] 15Result Comment: [11/26/2016] [facility] 16Result Comment: [11/26/2016] [facility] 17Result Comment: [11/26/2016] [facility] 18Result Comment: [11/26/2016] [facility] 19Result Comment: [11/26/2016] [facility] 20Result Comment: [11/26/2016] [facility] 21Result Comment: [11/26/2016] [facility] 22Result Comment: [11/26/2016] [facility] 23Result Comment: [11/26/2016] [facility] 24Result Comment: [11/26/2016] [facility] 25Result Comment: [11/26/2016] [facility] 26Result Comment: [11/26/2016] [facility] 27Result Comment: [11/26/2016] [facility] 28Result Comment: [11/26/2016] [facility] 29Result Comment: [11/26/2016] [facility] 30Result Comment: [11/26/2016] [facility] 31Result Comment: [11/26/2016] [facility] 32Result Comment: [11/26/2016] [facility] 33Result Comment: [11/26/2016] [facility] 34Result Comment: [11/26/2016] [facility] 35Result Comment: [11/26/2016] [facility] Medications Flovent 110 mcg Inhaler HFA [...] Team Personnel Name: Live Leyva MD Position: [facility] Physician -Physician Practices Member Role: Lifetime Consulting Physician Name: Jeanmarie Lopez MD Position: [facility] Renal MD Member Role: Lifetime Consulting Physician Address: Address: [address] [place] [address] [address] [place] [address]- [place] Name: Lashonda Clifford Position: [facility] Outreach Member Role: Lifetime Consulting Physician Name: Tiera Wadsworth RN Position: [facility] RN Member Role: Primary Care Nurse Name: Isaiah Angeles MD Position: [facility] Physician - Primary Care Member Role: PCP Address: Address: [address] [place] [address]- [place] Name: Annalise Lara RN Position: S RN Member Role: Primary Care Nurse Name: Mark Wilkes MD Position: [facility] Renal MD Member Role: Lifetime Consulting Physician Address: Address: [address] [place] [address] [facility] [place] [address]- Name: Bibiana Treviño RN Position: S RN Member Role: Primary Care Nurse Care Team Related Persons Name: MIRA MILLER Address: home [address] [id number] Name: MIRA MILLER Address: [place] Address: home [address] [place] [address] Name: PRATEEK MILLER Address: home [address] [place] [address] Name: BELEN MILLER Address: home [address] [place] [address] Name: BELEN MILLER Address: [place] [address] [place] [address]
--- OUTSIDE RECORDS SUMMARY | 2024-05-20 07:38 | XMS_ITS | Continuity of Care Document ---
Author Organization [facility] Address [address] [place] [address]- Care Team Providers Care Team Lead Name Role Phone Karthik HENLEY, Isaiah Douglas Primary Care Physician [phone] Encounter [facility] Date(s): 02/28/22 - 03/30/22 [facility] Adult [address] [place] [address]- Allergies, Adverse Reactions, Alerts Substance Reaction Severity [...] Comment: [facility][NOTE 3]-[id number] 2Location History: [facility] [place] 3Result Comment: [11/26/2016] [facility] 4Result Comment: [11/26/2016] [facility] 5Result Comment: [11/26/2016] [facility] 6Result Comment: [11/26/2016] [facility] 7Result Comment: [11/26/2016] [facility] 8Result Comment: [11/26/2016] [facility] 9Result Comment: [11/26/2016] [facility] 10Result Comment: [11/26/2016] [facility] 11Result Comment: [11/26/2016] [facility] 12Result Comment: [11/26/2016] [facility] 13Result Comment: [11/26/2016] [facility] 14Result Comment: [11/26/2016] [facility] 15Result Comment: [11/26/2016] [facility] 16Result Comment: [11/26/2016] [facility] 17Result Comment: [11/26/2016] [facility] 18Result Comment: [11/26/2016] [facility] 19Result Comment: [11/26/2016] [facility] 20Result Comment: [11/26/2016] [facility] 21Result Comment: [11/26/2016] [facility] 22Result Comment: [11/26/2016] [facility] 23Result Comment: [11/26/2016] [facility] 24Result Comment: [11/26/2016] [facility] 25Result Comment: [11/26/2016] [facility] 26Result Comment: [11/26/2016] [facility] 27Result Comment: [11/26/2016] [facility] 28Result Comment: [11/26/2016] [facility] 29Result Comment: [11/26/2016] [facility] 30Result Comment: [11/26/2016] [facility] 31Result Comment: [11/26/2016] [facility] 32Result Comment: [11/26/2016] [facility] 33Result Comment: [11/26/2016] [facility] Medications calcium (as carbonate) 500 mg [...]
--- OUTSIDE RECORDS SUMMARY | 2024-05-20 07:38 | XMS_ITS | Continuity of Care Document ---
Author Organization [facility] Address [address] [place] [address]- Care Team Providers Care Archeology Professor Name Role Phone Karthik HENLEY, Isaiah Douglas Primary Care Physician [phone] Encounter [facility] Date(s): 10/02/23 - 11/01/23 [facility] Adult [address] [place] [address]- Attending Physician: Admthelma, Segundo Admitting Physician: AdmtrSegundo Referring Physician: Admtr, Ar8 [...] corded tetanus-diphtheria toxoids (Td) 10 08/15/22 Given [id number] bivalent booster vax 07/05/22 Recorded SARS-CoV-2 (COVID-19) [...] Comment: [facility] [place] 2Result Comment: [facility]-[id number] 3Location History: [facility] [place] 4Result Comment: [11/26/2016] [facility] 5Result Comment: [11/26/2016] [facility] 6Result Comment: [11/26/2016] [facility] 7Result Comment: [11/26/2016] [facility] 8Result Comment: [11/26/2016] [facility] 9Result Comment: [11/26/2016] [facility] 10Result Comment: [id number] 11Result Comment: [11/26/2016] [facility] 12Result Comment: [11/26/2016] [facility] 13Result Comment: [11/26/2016] [facility] 14Result Comment: [11/26/2016] [facility] 15Result Comment: [11/26/2016] [facility] 16Result Comment: [11/26/2016] [facility] 17Result Comment: [11/26/2016] [facility] 18Result Comment: [11/26/2016] [facility] 19Result Comment: [11/26/2016] [facility] 20Result Comment: [11/26/2016] [facility] 21Result Comment: [11/26/2016] [facility] 22Result Comment: [11/26/2016] [facility] 23Result Comment: [11/26/2016] [facility] 24Result Comment: [11/26/2016] [facility] 25Result Comment: [11/26/2016] [facility] 26Result Comment: [11/26/2016] [facility] 27Result Comment: [11/26/2016] [facility] 28Result Comment: [11/26/2016] [facility] 29Result Comment: [11/26/2016] [facility] 30Result Comment: [11/26/2016] [facility] 31Result Comment: [11/26/2016] [facility] 32Result Comment: [11/26/2016] [facility] 33Result Comment: [11/26/2016] [facility] 34Result Comment: [11/26/2016] [facility] 35Result Comment: [11/26/2016] [facility] Flovent 110 mcg Inhaler HFA [...] tablet By Mouth 1 hour prior to procedure. May repeat x 1 prn anxiety, # 2 tablet, 0 Refills, Acute 11/06/23 12:07:00 EDT, 10/08/23 12:06:00 EST, [id number], Partial fill upon patient request if the prescription is f... Start Date: 10/08/23 Stop Date: 11/06/23 Status: Ordered Nurtec ODT 75 mg oral [...] * Event Display: X-Ray Lower Extremity, Non- Authored Date: * Event Display: X-Ray Hand/Wrist, Non- Authored Date: Patient Care team information Care Team Personnel Name: Live Leyva MD Position: [facility] Physician -Physician Practices Member Role: Lifetime Consulting Physician Name: Jeanmarie Lopez MD Position: [facility] Renal MD Member Role: Lifetime Consulting Physician Address: Address: [address] [place] [address] [address] [place] [address]- [place] Name: Lashonda Clifford Position: [facility] Outreach Member Role: Lifetime Consulting Physician Name: Tiera Wadsworth RN Position: [facility] RN Member Role: Primary Care Nurse Name: Isaiah Angeles MD Position: [facility] Physician - Primary Care Member Role: PCP Address: Address: [address] [place] [phone]- [place] Name: Annalise Lara RN Position: [facility] RN Member Role: Primary Care Nurse Name: Mark Wilkes MD Position: [facility] Renal MD Member Role: Lifetime Consulting Physician Address: Address: [address] [place] [address] [facility] [place] [address]- [place] Name: Bibiana Treviño RN Position: [facility] RN Member Role: Primary Care Nurse Care Team Related Persons Name: AKASHRICARDOJANETH MIRA Address: [place] Address: [address] [place] [address] [place] Name: MIRA MILLER Address: [address] [id number] Name: PRATEEK MILLER Address: [address] [place] [address] Name: BELEN MILLER Address: [address] [place] [address] Name: BELEN MILLER Address: [address] [place] [address]
--- OUTSIDE RECORDS SUMMARY | 2024-05-20 07:38 | XMS_ITS | Continuity of Care Document ---
Author Organization [facility] [place] Ethan lt Address [address] [place] [address]- Care Team Providers Care Broadcast Producer Name Role Phone Karthik HENLEY, Isaiah Douglas Primary Care Physician [phone] Encounter [facility] Date(s): 10/11/22 - 11/10/22 [facility] [place] Adult [address] [place] [address]- Attending Physician: Segundo Martinez Admitting Physician: AdmSegundo [...] Reason tetanus-diphtheria toxoids (Td) 1 08/15/22 Given [id number] bivalent booster vax 07/05/22 Recorded influenza virus [...] Given Parent Or Guardian Refuses 1Result Comment: [id number] 2Result Comment: [facility] [place] 3Result Comment: [facility]-[id number] 4Location History: [facility] [place] 5Result Comment: [11/26/2016] [facility] 6Result Comment: [11/26/2016] [facility] 7Result Comment: [11/26/2016] [facility] 8Result Comment: [11/26/2016] [facility] 9Result Comment: [11/26/2016] [facility] 10Result Comment: [11/26/2016] [facility] 11Result Comment: [11/26/2016] [facility] 12Result Comment: [11/26/2016] [facility] 13Result Comment: [11/26/2016] [facility] 14Result Comment: [11/26/2016] [facility] 15Result Comment: [11/26/2016] [facility] 16Result Comment: [11/26/2016] [facility] 17Result Comment: [11/26/2016] [facility] 18Result Comment: [11/26/2016] [facility] 19Result Comment: [11/26/2016] [facility] 20Result Comment: [11/26/2016] [facility] 21Result Comment: [11/26/2016] [facility] 22Result Comment: [11/26/2016] [facility] 23Result Comment: [11/26/2016] [facility] 24Result Comment: [11/26/2016] [facility] 25Result Comment: [11/26/2016] [facility] 26Result Comment: [11/26/2016] [facility] 27Result Comment: [11/26/2016] [facility] 28Result Comment: [11/26/2016] [facility] 29Result Comment: [11/26/2016] [facility] 30Result Comment: [11/26/2016] [facility] 31Result Comment: [11/26/2016] [facility] 32Result Comment: [11/26/2016] [facility] 33Result Comment: [11/26/2016] [facility] 34Result Comment: [11/26/2016] [facility] 35Result Comment: [11/26/2016] [facility] Medications cholecalciferol 50 mcg (2000 intl [...] study * Event Display: EKG Authored Date: Note * Event Display: Non BH Lab Results Authored Date: * Event Display: Non BH Lab Results Authored Date: * Event Display: Non BH Lab Results Authored Date: * Event Display: Non BH Lab Results Authored Date: * Event Display: Non BH Lab Results Authored Date: * Event Display: Non BH Lab Results Authored Date: * Event Display: X-Ray Upper Extremity, Non- [...] Team Personnel Name: Margaux Vivas RN Position: [facility] RN Member Role: Primary Care Nurse Name: Live Leyva MD Position: [facility] Physician -Physician Practices Member Role: Lifetime Consulting Physician Name: Jeanmarie Lopez MD Position: [facility] Renal MD Member Role: Lifetime Consulting Physician Address: Address: [address] [place] [address], [address] [facility] [place] [address]- Name: Lashonda Clifford Position: [facility] Outreach Member Role: Lifetime Consulting Physician Name: Tiera Wadsworth RN Position: [facility] RN Member Role: Primary Care Nurse Name: Isaiah Angeles MD Position: [facility] Primary Care Physician Member Role: PCP Address: Address: [address] [place] [address]- Name: Annalise Lara RN Position: [facility] RN Member Role: Primary Care Nurse Name: Makr Wilkes MD Position: [facility] Renal MD Member Role: Lifetime Consulting Physician Address: Address: [address] [place] [address] [facility] [place] [address]- Name: Bibiana Treviño RN Position: [facility] RN Member Role: Primary Care Nurse Care Team Related Persons Name: MIRA MILLER Address: home [address] [facility] [id number] Name: AKASHMIRA CARTY Address: home [address] [facility] [id number] Name: AKASHMIRA CARTY Address: home [address] [facility] [id number] Name: AKASHCLAUDETTE CARTYE Address: home [address] [facility] [id number] Name: AKASHMIRA CARTY Address: home [address] [facility] [id number] Name: AKASHRICARDOJANETHMIRA Address: home [address] [facility] [phone] Name: AKASHMIRA CARTY Address: [place] [address] [facility] [phone] Name: PRATEEK MILLER Address: home [address] [place] [address] Name: BELEN MILLER Address: [place] [address] [place] [address] Name: BELEN MILLER Address: [place] [address] [place] [address]
--- OUTSIDE RECORDS SUMMARY | 2024-05-20 07:38 | XMS_ITS | Continuity of Care Document ---
Author Organization [facility] [place] Ethan lt Address [address] [place] [address]- Care Team Providers Care Grinder Set Up Operator Internal Name Role Phone Karthik HENLEY, Isaiah Douglas Primary Care Physician [phone] Encounter [facility] Date(s): 04/18/21 - 05/18/21 [facility] Adult [address] [place] [address]- Allergies, Adverse Reactions, Alerts Substance Reaction Severity [...] Given Parent Or Guardian Refuses 1Result Comment: [facility]-[id number] 2Location History[facility] 3Result Comment: [11/26/2016] [facility] 4Result Comment: [11/26/2016] [facility] 5Result Comment: [11/26/2016] [facility] 6Result Comment: [11/26/2016] [facility] 7Result Comment: [11/26/2016] [facility] 8Result Comment: [11/26/2016] [facility] 9Result Comment: [11/26/2016] [facility] 10Result Comment: [11/26/2016] [facility] 11Result Comment: [11/26/2016] [facility] 12Result Comment: [11/26/2016] [facility] 13Result Comment: [11/26/2016] [facility] 14Result Comment: [11/26/2016] [facility] 15Result Comment: [11/26/2016] [facility] 16Result Comment: [11/26/2016] [facility] 17Result Comment: [11/26/2016] [facility] 18Result Comment: [11/26/2016] [facility] 19Result Comment: [11/26/2016] [facility] 20Result Comment: [11/26/2016] [facility] 21Result Comment: [11/26/2016] [facility] 22Result Comment: [11/26/2016] [facility] 23Result Comment: [11/26/2016] [facility] 24Result Comment: [11/26/2016] [facility] 25Result Comment: [11/26/2016] [facility] 26Result Comment: [11/26/2016] [facility] 27Result Comment: [11/26/2016] [facility] 28Result Comment: [11/26/2016] [facility] 29Result Comment: [11/26/2016] [facility] 30Result Comment: [11/26/2016] [facility] 31Result Comment: [11/26/2016] [facility] 32Result Comment: [11/26/2016] [facility] 33Result Comment: [11/26/2016] [facility] Medications levothyroxine 125 mcg (0.125 mg) [...]
--- OUTSIDE RECORDS SUMMARY | 2024-05-20 07:39 | XMS_ITS | Continuity of Care Document ---
Author Organization [facility] Address [address] [place] [address]- Care Team Providers Care Molecular Biology Director Name Role Phone Karthik HENLEY, Isaiah Douglas Primary Care Physician [phone] Encounter [facility] Date(s): 10/17/22 - 11/16/22 [facility] [address] [place] [address] Allergies, Adverse Reactions, Alerts Substance Reaction Severity Status codeine 1 Surgical adhesive ta pe itching Active Adhesive Bandage 2 Rash Active riTUXimab 3 Severe Active 1hives 2surgical tape allergy as per family 3developed anaphylaxis with throat closure sensation and facial swelling needed brief epinephrine drip Immunizations Given and Recorded Vaccine Date Status Refusal Reason tetanus-diphtheria toxoids (Td) 1 08/15/22 Given [id number] bivalent booster vax 07/05/22 Recorded influenza virus vaccine, inactivated 2 06/03/22 Re corded influenza virus vaccine, inactivated 05/16/20 Fareed rded influenza virus vaccine, inactivated 3 05/20/19 Gi libby influenza virus vaccine, inactivated 4 07/06/18 Re corded influenza virus vaccine, inactivated 09/14/17 Fraeed rded influenza virus vaccine, inactivated 09/02/17 Fareed [...] Given Parent Or Guardian Refuses 1Result Comment: [id number] 2Result Comment: [facility] [place] 3Result Comment: [facility]-[id number] 4Location History: [facility] [place] 5Result Comment: [11/26/2016] [facility] 6Result Comment: [11/26/2016] [facility] 7Result Comment: [11/26/2016] [facility] 8Result Comment: [11/26/2016] [facility] 9Result Comment: [11/26/2016] [facility] 10Result Comment: [11/26/2016] [facility] 11Result Comment: [11/26/2016] [facility] 12Result Comment: [11/26/2016] [facility] 13Result Comment: [11/26/2016] [facility] 14Result Comment: [11/26/2016] [facility] 15Result Comment: [11/26/2016] [facility] 16Result Comment: [11/26/2016] [facility] 17Result Comment: [11/26/2016] [facility] 18Result Comment: [11/26/2016] [facility] 19Result Comment: [11/26/2016] [facility] 20Result Comment: [11/26/2016] [facility] 21Result Comment: [11/26/2016] [facility] 22Result Comment: [11/26/2016] [facility] 23Result Comment: [11/26/2016] [facility] 24Result Comment: [11/26/2016] [facility] 25Result Comment: [11/26/2016] [facility] 26Result Comment: [11/26/2016] [facility] 27Result Comment: [11/26/2016] [facility] 28Result Comment: [11/26/2016] [facility] 29Result Comment: [11/26/2016] [facility] 30Result Comment: [11/26/2016] [facility] 31Result Comment: [11/26/2016] [facility] 32Result Comment: [11/26/2016] [facility] 33Result Comment: [11/26/2016] [facility] 34Result Comment: [11/26/2016] [facility] 35Result Comment: [11/26/2016] [facility] Medications cholecalciferol 50 mcg (2000 intl [...] Care Nurse Name: Live Leyva MD Position: [facility] Physician -Physician Practices Member Role: Lifetime Consulting Physician Name: Jeanmarie Lopez MD Position: [facility] Renal MD Member Role: Lifetime Consulting Physician Address: Address: [address] [place] [address], [address] [facility] [place] [address]- [place] Name: Lashonda Clifford Position: [facility] Outreach Member Role: Lifetime Consulting Physician Name: Tiera Wadsworth RN Position: [facility] RN Member Role: Primary Care Nurse Name: Isaiah Angeles MD Position: [facility] Primary Care Physician Member Role: PCP Address: Address: [address] [place] [address]- [place] Name: Annalise Lara RN Position: [facility] RN Member Role: Primary Care Nurse Name: Mark Wilkes MD Position: [facility] Renal MD Member Role: Lifetime Consulting Physician Address: Address: [address] [facility] [place] [address]- [place] Name: Bibiana Treviño RN Position: [facility] RN Member Role: Primary Care Nurse Care Team Related Persons Name: ANGELA MIRA Address: [address] [phone] Name: AKASHMIRA CARTY Address: [address] [phone] Name: MIRA MILLER Address: [address] [phone] Name: MIRA MILLER Address: [address] [phone] Name: MIRA MILLER Address: [address] [phone] Name: AKASHMIRA CARTY Address: [address] [id number] Name: MIRA MILLER Address: [address] [phone] Name: PRATEEK MILLER Address: [address] [address] Name: BELEN MILLER Address: [address] [address] Name: BELEN MILLER Address: [address] [address]
--- OUTSIDE RECORDS SUMMARY | 2024-05-20 07:39 | XMS_ITS | Continuity of Care Document ---
Author Organization [facility] Address [address] [place] [address]- Care Team Providers Care Professor Of Political Science Name Role Phone Karthik HENLEY, Isaiah Douglas Primary Care Physician [facility] Date(s): 07/10/21 - 08/09/21 [facility] [place] [address] [place] [address]- Allergies, Adverse Reactions, Alerts Substance Reaction Severity [...] Parent Or Guardian Refuses 1Result Comment: [facility]-[id number] 2Location History: [facility] [place] 3Result Comment: [11/26/2016] [facility] 4Result Comment: [11/26/2016] [facility] 5Result Comment: [11/26/2016] [facility] 6Result Comment: [11/26/2016] [facility] 7Result Comment: [11/26/2016] [facility] 8Result Comment: [11/26/2016] [facility] 9Result Comment: [11/26/2016] [facility] 10Result Comment: [11/26/2016] [facility] 11Result Comment: [11/26/2016] [facility] 12Result Comment: [11/26/2016] [facility] 13Result Comment: [11/26/2016] [facility] 14Result Comment: [11/26/2016] [facility] 15Result Comment: [11/26/2016] [facility] 16Result Comment: [11/26/2016] [facility] 17Result Comment: [11/26/2016] [facility] 18Result Comment: [11/26/2016] [facility] 19Result Comment: [11/26/2016] [facility] 20Result Comment: [11/26/2016] [facility] 21Result Comment: [11/26/2016] [facility] 22Result Comment: [11/26/2016] [facility] 23Result Comment: [11/26/2016] [facility] 24Result Comment: [11/26/2016] [facility] 25Result Comment: [11/26/2016] [facility] 26Result Comment: [11/26/2016] [facility] 27Result Comment: [11/26/2016] [facility] 28Result Comment: [11/26/2016] [facility] 29Result Comment: [11/26/2016] [facility] 30Result Comment: [11/26/2016] [facility] 31Result Comment: [11/26/2016] [facility] 32Result Comment: [11/26/2016] [facility] 33Result Comment: [11/26/2016] [facility] Medications lidocaine 4% topical film 1 [...]
--- OUTSIDE RECORDS SUMMARY | 2024-05-20 07:39 | XMS_ITS | Continuity of Care Document ---
Author Organization [facility] Address [address] [place] [address]- Care Team Providers Care Child Care Counselor Name Role Phone Isaiah Angeles MD Primary Care Physician Encounter [facility] Date(s): 12/01/19 - 03/30/20 [facility] [address] [place] [address]- [facility] Attending Physician: Jas Sloan MD Admitting Physician: Jas Sloan MD Referring Physician: Isaiah Angeles MD Allergies, [...] Parent Or Guardian Refuses 1Result Comment: [facility]-[id number] 2Location History: [facility] [place] 3Result Comment: [11/26/2016] [facility] 4Result Comment: [11/26/2016] [facility] 5Result Comment: [11/26/2016] [facility] 6Result Comment: [11/26/2016] [facility] 7Result Comment: [11/26/2016] [facility] 8Result Comment: [11/26/2016] [facility] 9Result Comment: [11/26/2016] [facility] 10Result Comment: [11/26/2016] [facility] 11Result Comment: [11/26/2016] [facility] 12Result Comment: [11/26/2016] [facility] 13Result Comment: [11/26/2016] [facility] 14Result Comment: [11/26/2016] [facility] 15Result Comment: [11/26/2016] [facility] 16Result Comment: [11/26/2016] [facility] 17Result Comment: [11/26/2016] [facility] 18Result Comment: [11/26/2016] [facility] 19Result Comment: [11/26/2016] [facility] 20Result Comment: [11/26/2016] [facility] 21Result Comment: [11/26/2016] [facility] 22Result Comment: [11/26/2016] [facility] 23Result Comment: [11/26/2016] [facility] 24Result Comment: [11/26/2016] [facility] 25Result Comment: [11/26/2016] [facility] 26Result Comment: [11/26/2016] [facility] 27Result Comment: [11/26/2016] [facility] 28Result Comment: [11/26/2016] [facility] 29Result Comment: [11/26/2016] [facility] 30Result Comment: [11/26/2016] [facility] 31Result Comment: [11/26/2016] [facility] 32Result Comment: [11/26/2016] [facility] 33Result Comment: [11/26/2016] [facility] Medications acetaminophen-oxyCODONE 325 mg-5 mg oral [...]
--- OUTSIDE RECORDS SUMMARY | 2024-05-20 07:39 | XMS_ITS | Continuity of Care Document ---
Author Organization [facility] Ethan lt Address [address] [place] [address]- Care Team Providers Care Nail Expert Name Role Phone Karthik HENLEY, Isaiah Douglas Primary Care Physician Encounter [facility] Date(s): 03/07/21 - 04/06/21 [facility] Adult [address] [place] [address]- Allergies, Adverse Reactions, Alerts Substance Reaction Severity [...] Given Parent Or Guardian Refuses 1Result Comment: [id number] 2Location History: [facility] [place] 3Result Comment: [11/26/2016] [facility] 4Result Comment: [11/26/2016] [facility] 5Result Comment: [11/26/2016] [facility] 6Result Comment: [11/26/2016] [facility] 7Result Comment: [11/26/2016] [facility] 8Result Comment: [11/26/2016] [facility] 9Result Comment: [11/26/2016] [facility] 10Result Comment: [11/26/2016] [facility] 11Result Comment: [11/26/2016] [facility] 12Result Comment: [11/26/2016] [facility] 13Result Comment: [11/26/2016] [facility] 14Result Comment: [11/26/2016] [facility] 15Result Comment: [11/26/2016] [facility] 16Result Comment: [11/26/2016] [facility] 17Result Comment: [11/26/2016] [facility] 18Result Comment: [11/26/2016] [facility] 19Result Comment: [11/26/2016] [facility] 20Result Comment: [11/26/2016] [facility] 21Result Comment: [11/26/2016] [facility] 22Result Comment: [11/26/2016] [facility] 23Result Comment: [11/26/2016] [facility] 24Result Comment: [11/26/2016] [facility] 25Result Comment: [11/26/2016] [facility] 26Result Comment: [11/26/2016] [facility] 27Result Comment: [11/26/2016] [facility] 28Result Comment: [11/26/2016] [facility] 29Result Comment: [11/26/2016] [facility] 30Result Comment: [11/26/2016] [facility] 31Result Comment: [11/26/2016] [facility] 32Result Comment: [11/26/2016] [facility] 33Result Comment: [11/26/2016] [facility] Medications levothyroxine 125 mcg (0.125 mg) [...]
--- OUTSIDE RECORDS SUMMARY | 2024-05-20 07:39 | XMS_ITS | Continuity of Care Document ---
Author Organization [facility] Ethan lt Address [address] [place] [address]- Care Team Providers Care Station Chief Name Role Phone Karthik HENLEY, Isaiah Douglas Primary Care Physician Encounter [facility] Date(s): 05/16/23 - 06/15/23 [facility] Adult [address] [place] [address]- Attending Physician: Admthelma, Segundo Admitting Physician: AdmtrSegundo [...] corded tetanus-diphtheria toxoids (Td) 10 08/15/22 Given [id number] bivalent booster vax 07/05/22 Recorded SARS-CoV-2 (COVID-19) [...] Comment: [facility] [place] 2Result Comment: [facility]-[id number] 3Location History: [facility] [place] 4Result Comment: [11/26/2016] [facility] 5Result Comment: [11/26/2016] [facility] 6Result Comment: [11/26/2016] [facility] 7Result Comment: [11/26/2016] [facility] 8Result Comment: [11/26/2016] [facility] 9Result Comment: [11/26/2016] [facility] 10Result Comment: [id number] 11Result Comment: [11/26/2016] [facility] 12Result Comment: [11/26/2016] [facility] 13Result Comment: [11/26/2016] [facility] 14Result Comment: [11/26/2016] [facility] 15Result Comment: [11/26/2016] [facility] 16Result Comment: [11/26/2016] [facility] 17Result Comment: [11/26/2016] [facility] 18Result Comment: [11/26/2016] [facility] 19Result Comment: [11/26/2016] [facility] 20Result Comment: [11/26/2016] [facility] 21Result Comment: [11/26/2016] [facility] 22Result Comment: [11/26/2016] [facility] 23Result Comment: [11/26/2016] [facility] 24Result Comment: [11/26/2016] [facility] 25Result Comment: [11/26/2016] [facility] 26Result Comment: [11/26/2016] [facility] 27Result Comment: [11/26/2016] [facility] 28Result Comment: [11/26/2016] [facility] 29Result Comment: [11/26/2016] [facility] 30Result Comment: [11/26/2016] [facility] 31Result Comment: [11/26/2016] [facility] 32Result Comment: [11/26/2016] [facility] 33Result Comment: [11/26/2016] [facility] 34Result Comment: [11/26/2016] [facility] 35Result Comment: [11/26/2016] [facility] Medications Flovent 110 mcg Inhaler HFA [...] mL, 6 Refills, Maintenance, 05/02/23 12:03:00 EDT, [facility], Partial fill upon patient request if the prescription is for a schedule... Start Date: 05/02/23 Status: Ordered levothyroxine 25 mcg (0.025 mg)/mL oral solution 1 mL = 25 mcg, By Mouth, Daily, to be taken with the 200mcg liquid daily to total 225mcg daily, # 30 mL, 6 Refills, Maintenance, 05/02/23 12:01:00 EDT, [facility], Partial fill upon patient request [...] Team Personnel Name: Margaux Vivas RN Position: [facility] RN Member Role: Primary Care Nurse Name: Live Leyva MD Position: [facility] Physician -Physician Practices Member Role: Lifetime Consulting Physician Name: Jeanmarie Lopez MD Position: [facility] Renal MD Member Role: Lifetime Consulting Physician Address: Address: [address] [facility], [address] [facility] [place] [address]- [place] Name: Lashonda Clifford Position: [facility] Outreach Member Role: Lifetime Consulting Physician Name: Ermelinda WEBB, Tiera Position: [facility] RN Member Role: Primary Care Nurse Name: Karthik HENLEY, Isaiah Douglas Position: [facility] Physician - Primary Care Member Role: PCP Address: Address: [address] [place] [address]- [place] Name: Annalise Lara RN Position: [facility] RN Member Role: Primary Care Nurse Name: Mark Wilkes MD Position: [facility] Renal MD Member Role: Lifetime Consulting Physician Address: Address: [address] [facility] [place] [address]- [place] Name: Bibiana Treviño RN Position: [facility] RN Member Role: Primary Care Nurse Care Team Related Persons Name: MIRA MILLER Address: home [address] [place] [phone] Name: MIRA MILLER Address: [place] Address: home [address] [place] [address] [place] Name: PRATEEK MILLER Address: home [address] [place] [address] Name: BELEN MILLER Address: home [address] [place] [address] Name: BELEN MILLER Address: home [address] [place] [address]
--- OUTSIDE RECORDS SUMMARY | 2024-05-20 07:39 | XMS_ITS | Continuity of Care Document ---
Author Organization [facility] Address [address] [place] [address]- Care Team Providers Care Substation Wireman Name Role Phone Karthik HENLEY, Isaiah Douglas Primary Care Physician Encounter [facility] [place] Date(s): 07/19/23 - 08/18/23 [facility] [address] [place] [address]- Allergies, Adverse Reactions, Alerts Substance Reaction Severity [...] corded tetanus-diphtheria toxoids (Td) 10 08/15/22 Given [id number] bivalent booster vax 07/05/22 Recorded SARS-CoV-2 (COVID-19) [...] Comment: [facility] [place] 2Result Comment: [facility]-[id number] 3Location History: [facility] [place] 4Result Comment: [11/26/2016] [facility] 5Result Comment: [11/26/2016] [facility] 6Result Comment: [11/26/2016] [facility] 7Result Comment: [11/26/2016] [facility] 8Result Comment: [11/26/2016] [facility] 9Result Comment: [11/26/2016] [facility] 10Result Comment: [id number] 11Result Comment: [11/26/2016] [facility] 12Result Comment: [11/26/2016] [facility] 13Result Comment: [11/26/2016] [facility] 14Result Comment: [11/26/2016] [facility] 15Result Comment: [11/26/2016] [facility] 16Result Comment: [11/26/2016] [facility] 17Result Comment: [11/26/2016] [facility] 18Result Comment: [11/26/2016] [facility] 19Result Comment: [11/26/2016] [facility] 20Result Comment: [11/26/2016] [facility] 21Result Comment: [11/26/2016] [facility] 22Result Comment: [11/26/2016] [facility] 23Result Comment: [11/26/2016] [facility] 24Result Comment: [11/26/2016] [facility] 25Result Comment: [11/26/2016] [facility] 26Result Comment: [11/26/2016] [facility] 27Result Comment: [11/26/2016] [facility] 28Result Comment: [11/26/2016] [facility] 29Result Comment: [11/26/2016] [facility] 30Result Comment: [11/26/2016] [facility] 31Result Comment: [11/26/2016] [facility] 32Result Comment: [11/26/2016] [facility] 33Result Comment: [11/26/2016] [facility] 34Result Comment: [11/26/2016] [facility] 35Result Comment: [11/26/2016] [facility] Medications Flovent 110 mcg Inhaler HFA [...] Name: Margaux Vivas RN Position: [facility] RN Member Role: Primary Care Nurse Name: Live Leyva MD Position: [facility] Physician -Physician Practices Member Role: Lifetime Consulting Physician Name: Jeanmarie Lopez MD Position: [facility] Renal MD Member Role: Lifetime Consulting Physician Address: Address: [address] [place] [address] [address] [place] [address]- Name: Lashonda Clifford Position: [facility] Outreach Member Role: Lifetime Consulting Physician Name: Tiera Wadsworth RN Position: [facility] RN Member Role: Primary Care Nurse Name: Isaiah Angeles MD Position: [facility] Physician - Primary Care Member Role: PCP Address: Address: [address] [place] [address]- [place] Name: Annalise Lara RN Position: S RN Member Role: Primary Care Nurse Name: Mark Wilkes MD Position: [facility] Renal MD Member Role: Lifetime Consulting Physician Address: Address: [address] [place] [address] [facility] [place] [address]- Name: Bibiana Treviño RN Position: [facility] RN Member Role: Primary Care Nurse Care Team Related Persons Name: MIRA MILLER Address: home [address] [id number] Name: MIRA MILLER Address: [place] Address: home [address] [place] [address] Name: PRATEEK MILLER Address: home [address] [place] [address] Name: BELEN MILLER Address: home [address] [place] [address] Name: BELEN MILLER Address: home [address] [place] [address]
--- OUTSIDE RECORDS SUMMARY | 2024-05-20 07:39 | XMS_ITS | Continuity of Care Document ---
Author Organization [facility] Address [address] [place] [address]- Care Team Providers Care Iron Assorter Name Role Phone Karthik HENLEY, Isaiah Douglas Primary Care Physician [place] [facility] [place] 01/07/[place] - 02/06/23 [facility] [address] [place] [address]- Allergies, Adverse Reactions, Alerts Substance Reaction Severity Status codeine 1 Surgical adhesive ta pe itching Active Adhesive Bandage 2 Rash Active riTUXimab 3 Severe Active 1hives 2surgical tape allergy as per family 3developed anaphylaxis with throat closure sensation and facial swelling needed brief epinephrine drip Immunizations Given and Recorded Vaccine Date Status Refusal Reason tetanus-diphtheria toxoids (Td) 1 08/15/22 Given [id number] bivalent booster vax 07/05/22 Recorded influenza virus [...] Given Parent Or Guardian Refuses 1Result Comment: [id number] 2Result Comment: [facility] [place] 3Result Comment: [facility]-[id number] 4Location History: [facility] [place] 5Result Comment: [11/26/2016] [facility] 6Result Comment: [11/26/2016] [facility] 7Result Comment: [11/26/2016] [facility] 8Result Comment: [11/26/2016] [facility] 9Result Comment: [11/26/2016] [facility] 10Result Comment: [11/26/2016] [facility] 11Result Comment: [11/26/2016] [facility] 12Result Comment: [11/26/2016] [facility] 13Result Comment: [11/26/2016] [facility] 14Result Comment: [11/26/2016] [facility] 15Result Comment: [11/26/2016] [facility] 16Result Comment: [11/26/2016] [facility] 17Result Comment: [11/26/2016] [facility] 18Result Comment: [11/26/2016] [facility] 19Result Comment: [11/26/2016] [facility] 20Result Comment: [11/26/2016] [facility] 21Result Comment: [11/26/2016] [facility] 22Result Comment: [11/26/2016] [facility] 23Result Comment: [11/26/2016] [facility] 24Result Comment: [11/26/2016] [facility] 25Result Comment: [11/26/2016] [facility] 26Result Comment: [11/26/2016] [facility] 27Result Comment: [11/26/2016] [facility] 28Result Comment: [11/26/2016] [facility] 29Result Comment: [11/26/2016] [facility] 30Result Comment: [11/26/2016] [facility] 31Result Comment: [11/26/2016] [facility] 32Result Comment: [11/26/2016] [facility] 33Result Comment: [11/26/2016] [facility] 34Result Comment: [11/26/2016] [facility] 35Result Comment: [11/26/2016] [facility] Medications cholecalciferol 50 mcg (2000 intl [...] Role: Lifetime Consulting Physician Address: Address: [address] [place] [address], [facility] [address] [facility] [place], [place] [address] Name: Lashonda Clifford Position: [facility] Outreach Member Role: Lifetime Consulting Physician Name: Isaiah Angeles MD Position: [facility] Physician - Primary Care Member Role: PCP Address: Address: [address] [place] [address]- Name: Annalise Lara RN Position: [facility] RN Member Role: Primary Care Nurse Name: Mark Wilkes MD Position: [facility] Renal MD Member Role: Lifetime Consulting Physician Address: Address: [address] [place] [address] [facility] [place] [address]- Name: Bibiana Treviño RN Position: [facility] RN Member Role: Primary Care Nurse Care Team Related Persons Name: MIRA MILLER Address: home [address] [phone] Name: AKASHRICARDOJANETHMIRA Address: home [address] [phone] Name: MIRA MILLER Address: [address] [phone] Name: MIRA MILLER Address: [address] [phone] Name: MIRA MILLER Address: [address] [phone] Name: MIRA MILLER Address: [address] [phone] Name: MIRA MILLER Address: [address] [phone] Name: PRATEEK MILLER Address: [address] [address] Name: BELEN MILLER Address: [address] [address] Name: BELEN MILLER Address: [address] [address]
--- OUTSIDE RECORDS SUMMARY | 2024-05-20 07:39 | XMS_ITS | Continuity of Care Document ---
Author Organization [facility] Address [address] [place] [address]- Care Team Providers Care Box Lidder Name Role Phone Karthik HENLEY, Isaiah Douglas Primary Care Physician Encounter [facility] [place] Date(s): 11/06/22 - 12/06/22 [facility] Adult [address] [place] [address]- Allergies, Adverse Reactions, Alerts Substance Reaction Severity Status codeine 1 Surgical adhesive ta pe itching Active Adhesive Bandage 2 Rash Active riTUXimab 3 Severe Active 1hives 2surgical tape allergy as per family 3developed anaphylaxis with throat closure sensation and facial swelling needed brief epinephrine drip Immunizations Given and Recorded Vaccine Date Status Refusal Reason tetanus-diphtheria toxoids (Td) 1 08/15/22 Given [id number] bivalent booster vax 07/05/22 Recorded influenza virus [...] Given Parent Or Guardian Refuses 1Result Comment: [id number] 2Result Comment: [facility] [place] 3Result Comment: [facility]-[id number] 4Location History: [facility] [place] 5Result Comment: [11/26/2016] [facility] 6Result Comment: [11/26/2016] [facility] 7Result Comment: [11/26/2016] [facility] 8Result Comment: [11/26/2016] [facility] 9Result Comment: [11/26/2016] [facility] 10Result Comment: [11/26/2016] [facility] 11Result Comment: [11/26/2016] [facility] 12Result Comment: [11/26/2016] [facility] 13Result Comment: [11/26/2016] [facility] 14Result Comment: [11/26/2016] [facility] 15Result Comment: [11/26/2016] [facility] 16Result Comment: [11/26/2016] [facility] 17Result Comment: [11/26/2016] [facility] 18Result Comment: [11/26/2016] [facility] 19Result Comment: [11/26/2016] [facility] 20Result Comment: [11/26/2016] [facility] 21Result Comment: [11/26/2016] [facility] 22Result Comment: [11/26/2016] [facility] 23Result Comment: [11/26/2016] [facility] 24Result Comment: [11/26/2016] [facility] 25Result Comment: [11/26/2016] [facility] 26Result Comment: [11/26/2016] [facility] 27Result Comment: [11/26/2016] [facility] 28Result Comment: [11/26/2016] [facility] 29Result Comment: [11/26/2016] [facility] 30Result Comment: [11/26/2016] [facility] 31Result Comment: [11/26/2016] [facility] 32Result Comment: [11/26/2016] [facility] 33Result Comment: [11/26/2016] [facility] 34Result Comment: [11/26/2016] [facility] 35Result Comment: [11/26/2016] [facility] Medications cholecalciferol 50 mcg (2000 intl [...] Role: Lifetime Consulting Physician Address: Address: [address] [place] [address], [address] [facility] [address] Name: Lashonda Clifford Position: [facility] Outreach Member Role: Lifetime Consulting Physician Name: Tiera Wadsworth RN Position: [facility] RN Member Role: Primary Care Nurse Name: Isaiah Angeles MD Position: [facility] Primary Care Physician Member Role: PCP Address: Address: [address] [place] [address]- [place] Name: Annalise Lara RN Position: [facility] RN Member Role: Primary Care Nurse Name: Mark Wilkes MD Position: [facility] Renal MD Member Role: Lifetime Consulting Physician Address: Address: [address] [place] [address] [facility] [place] [address]- Name: Bibiana Treviño RN Position: [facility] RN Member Role: Primary Care Nurse Care Team Related Persons Name: MIRA MILLER Address: [place] [address] [phone] Name: MIRA MILLER Address: [address] [phone] Name: MIRA MILLER Address: [address] [phone] Name: ANGELA MIRA Address: [address] [phone] Name: MIRA MILLER Address: [address] [phone] Name: MIRA MILLER Address: [address] [phone] Name: MIRA MILLER Address: [address] [phone] Name: CARYL MILLERA Address: [address] [address] Name: BELEN MILLER Address: [address] [address] Name: BELEN MILLER Address: [address] [address]
--- OUTSIDE RECORDS SUMMARY | 2024-05-20 07:39 | XMS_ITS | Continuity of Care Document ---
Author Organization [facility] Primary [facility] [place] Address [address] [place] [address]- Care Team Providers Care Screw Machine Operator Name Role Phone Karthik HENLEY, Isaiah Douglas Primary Care Physician [phone] Encounter [facility] Date(s): 11/13/21 - 12/13/21 [facility] [place] [address] [place] [address]- Allergies, Adverse Reactions, Alerts Substance Reaction Severity [...] Guardian Refuses 1Result Comment: [facility]-[id number] 2Location History: [facility] [place] 3Result Comment: [11/26/2016] [facility] 4Result Comment: [11/26/2016] [facility] 5Result Comment: [11/26/2016] [facility] 6Result Comment: [11/26/2016] [facility] 7Result Comment: [11/26/2016] [facility] 8Result Comment: [11/26/2016] [facility] 9Result Comment: [11/26/2016] [facility] 10Result Comment: [11/26/2016] [facility] 11Result Comment: [11/26/2016] [facility] 12Result Comment: [11/26/2016] [facility] 13Result Comment: [11/26/2016] [facility] 14Result Comment: [11/26/2016] [facility] 15Result Comment: [11/26/2016] [facility] 16Result Comment: [11/26/2016] [facility] 17Result Comment: [11/26/2016] [facility] 18Result Comment: [11/26/2016] [facility] 19Result Comment: [11/26/2016] [facility] 20Result Comment: [11/26/2016] [facility] 21Result Comment: [11/26/2016] [facility] 22Result Comment: [11/26/2016] [facility] 23Result Comment: [11/26/2016] [facility] 24Result Comment: [11/26/2016] [facility] 25Result Comment: [11/26/2016] [facility] 26Result Comment: [11/26/2016] [facility] 27Result Comment: [11/26/2016] [facility] 28Result Comment: [11/26/2016] [facility] 29Result Comment: [11/26/2016] [facility] 30Result Comment: [11/26/2016] [facility] 31Result Comment: [11/26/2016] [facility] 32Result Comment: [11/26/2016] [facility] 33Result Comment: [11/26/2016] [facility] Medications calcium (as carbonate) 500 mg [...]
--- OUTSIDE RECORDS SUMMARY | 2024-05-20 07:39 | XMS_ITS | Continuity of Care Document ---
Author Organization [facility] Address [address] [place] [address]- Care Team Providers Care Technical Clerk Name Role Phone Karthik HENLEY, Isaiah Douglas Primary Care Physician Encounter [facility] [place] Date(s): 12/30/23 - 01/29/24 [facility] [address] [place] [address]- Allergies, Adverse Reactions, Alerts Substance Reaction Severity [...] corded tetanus-diphtheria toxoids (Td) 10 08/15/22 Given [id number] bivalent booster vax 07/05/22 Recorded SARS-CoV-2 (COVID-19) [...] Comment: [facility] [place] 2Result Comment: [id number] 3Location History: [facility] [place] 4Result Comment: [11/26/2016] [facility] 5Result Comment: [11/26/2016] [facility] 6Result Comment: [11/26/2016] [facility] 7Result Comment: [11/26/2016] [facility] 8Result Comment: [11/26/2016] [facility] 9Result Comment: [11/26/2016] [facility] 10Result Comment: [id number] 11Result Comment: [11/26/2016] [facility] 12Result Comment: [11/26/2016] [facility] 13Result Comment: [11/26/2016] [facility] 14Result Comment: [11/26/2016] [facility] 15Result Comment: [11/26/2016] [facility] 16Result Comment: [11/26/2016] [facility] 17Result Comment: [11/26/2016] [facility] 18Result Comment: [11/26/2016] [facility] 19Result Comment: [11/26/2016] [facility] 20Result Comment: [11/26/2016] [facility] 21Result Comment: [11/26/2016] [facility] 22Result Comment: [11/26/2016] [facility] 23Result Comment: [11/26/2016] [facility] 24Result Comment: [11/26/2016] [facility] 25Result Comment: [11/26/2016] [facility] 26Result Comment: [11/26/2016] [facility] 27Result Comment: [11/26/2016] [facility] 28Result Comment: [11/26/2016] [facility] 29Result Comment: [11/26/2016] [facility] 30Result Comment: [11/26/2016] [facility] 31Result Comment: [11/26/2016] [facility] 32Result Comment: [11/26/2016] [facility] 33Result Comment: [11/26/2016] [facility] 34Result Comment: [11/26/2016] [facility] 35Result Comment: [11/26/2016] [facility] Medications [...] Member Role: Lifetime Consulting Physician Address: Address: [address] [place] [address] [address] [facility] [address]- Name: Lashonda Clifford Position: [facility] Outreach Member Role: Lifetime Consulting Physician Name: Tiera Wadsworth RN Position: [facility] RN Member Role: Primary Care Nurse Name: John Davila DO Position: [facility] Renal MD Member Role: Lifetime Consulting Physician Address: Address: [address] [place] [address] [address] [facility] [place] [address]- [place] Name: Karthik HENLEY, Isaaih Douglas Position: [facility] Physician - Primary Care Member Role: PCP Address: Address: [address] [place] [address]- [place] Name: Annalise Lara RN Position: [facility] RN Member Role: Primary Care Nurse Name: Mark Wilkes MD Position: [facility] Renal MD Member Role: Lifetime Consulting Physician Address: Address: [address] [place] [address] [facility] [place] [address]- [place] Name: Bibiana Treviño RN Position: [facility] RN Member Role: Primary Care Nurse Care Team Related Persons Name: MIRA MILLER Address: home [address] [phone] Name: MIRA MILLER Address: [place] Address: [address] [place] [address] Name: PRATEEK MILLER Address: [address] [place] [address] Name: BELEN MILLER Address: [address] [place] [address] Name: BELEN MILLER Address: [address] [place] [address]
--- OUTSIDE RECORDS SUMMARY | 2024-05-20 07:39 | XMS_ITS | Continuity of Care Document ---
Author Organization [facility] Address [address] [place] [address]- Care Team Providers Care Belt Weaver Name Role Phone Karthik HENLEY, Isaiah Douglas Primary Care Physician [place] [facility] [place] 09/21/22 [facility] Adult [address] [place] [address]- Allergies, Adverse Reactions, Alerts Substance Reaction Severity Status codeine 1 Surgical adhesive ta pe itching Active Adhesive Bandage 2 Rash Active riTUXimab 3 Severe Active 1hives 2surgical tape allergy as per family 3developed anaphylaxis with throat closure sensation and facial swelling needed brief epinephrine drip Immunizations Given and Recorded Vaccine Date Status Refusal Reason tetanus-diphtheria toxoids (Td) 1 08/15/22 Given [id number] bivalent booster vax 07/05/22 Recorded influenza virus [...] Given Parent Or Guardian Refuses 1Result Comment: [id number] 2Result Comment: [facility] [place] 3Result Comment: [facility]-[id number] 4Location History: [facility] [place] 5Result Comment: [11/26/2016] [facility] 6Result Comment: [11/26/2016] [facility] 7Result Comment: [11/26/2016] [facility] 8Result Comment: [11/26/2016] [facility] 9Result Comment: [11/26/2016] [facility] 10Result Comment: [11/26/2016] [facility] 11Result Comment: [11/26/2016] [facility] 12Result Comment: [11/26/2016] [facility] 13Result Comment: [11/26/2016] [facility] 14Result Comment: [11/26/2016] [facility] 15Result Comment: [11/26/2016] [facility] 16Result Comment: [11/26/2016] [facility] 17Result Comment: [11/26/2016] [facility] 18Result Comment: [11/26/2016] [facility] 19Result Comment: [11/26/2016] [facility] 20Result Comment: [11/26/2016] [facility] 21Result Comment: [11/26/2016] [facility] 22Result Comment: [11/26/2016] [facility] 23Result Comment: [11/26/2016] [facility] 24Result Comment: [11/26/2016] [facility] 25Result Comment: [11/26/2016] [facility] 26Result Comment: [11/26/2016] [facility] 27Result Comment: [11/26/2016] [facility] 28Result Comment: [11/26/2016] [facility] 29Result Comment: [11/26/2016] [facility] 30Result Comment: [11/26/2016] [facility] 31Result Comment: [11/26/2016] [facility] 32Result Comment: [11/26/2016] [facility] 33Result Comment: [11/26/2016] [facility] 34Result Comment: [11/26/2016] [facility] 35Result Comment: [11/26/2016] [facility] Medications dextromethorphan-guaifenesin 10 mg-100 mg/5 mL [...] Team Personnel Name: Margaux Vivas RN Position: [facility] RN Member Role: Primary Care Nurse Name: Live Leyva MD Position: [facility] Physician -Physician Practices Member Role: Lifetime Consulting Physician Name: Jeanmarie Lopez MD Position: [facility] Renal MD Member Role: Lifetime Consulting Physician Address: Address: [address] [place] [address], [address] [facility] [address] Name: Lashonda Clifford Position: [facility] Outreach Member Role: Lifetime Consulting Physician Name: Tiera Wadsworth RN Position: [facility] RN Member Role: Primary Care Nurse Name: Isaiah Angeles MD Position: [facility] Primary Care Physician Member Role: PCP Address: Address: [address] [place] [address]- [place] Name: Annalise Lara RN Position: [facility] RN Member Role: Primary Care Nurse Name: Mark Wilkes MD Position: [facility] Renal MD Member Role: Lifetime Consulting Physician Address: Address: [address] [place] [address] [facility] [place], [place] [address] Name: Bibiana Treviño RN Position: [facility] RN Member Role: Primary Care Nurse Care Team Related Persons Name: MIRA MILLER Address: [place] [phone] Name: MIRA MILLER Address: [place] [phone] Name: MIRA MILLER Address: [place] [phone] Name: ANGELA MIRA Address: [address] [phone] Name: ANGELA MIRA Address: [place] [phone] Name: ANGELA MIRA Address: [address] [phone] Name: ANGELACLAUDETTEE Address: [place] [phone] Name: PRATEEK MILLER Address: [address] [address] Name: BELEN MILLER Address: [address] [address] Name: BELEN MILLER Address: [address] [address]
--- OUTSIDE RECORDS SUMMARY | 2024-05-20 07:39 | XMS_ITS | Continuity of Care Document ---
Author Organization [facility] Ethan lt Address [address] [place] [address]- Care Team Providers Care Reproductive Healthcare Assistant Name Role Phone Karthik HENLEY, Isaiah Douglas Primary Care Physician Encounter [facility] Date(s): 06/27/21 - 07/27/21 [facility] Adult [address] [place] [address]- Allergies, Adverse Reactions, Alerts Substance Reaction Severity [...] Guardian Refuses 1Result Comment: [facility]-[id number] 2Location History: [facility] [place] 3Result Comment: [11/26/2016] [facility] 4Result Comment: [11/26/2016] [facility] 5Result Comment: [11/26/2016] [facility] 6Result Comment: [11/26/2016] [facility] 7Result Comment: [11/26/2016] [facility] 8Result Comment: [11/26/2016] [facility] 9Result Comment: [11/26/2016] [facility] 10Result Comment: [11/26/2016] [facility] 11Result Comment: [11/26/2016] [facility] 12Result Comment: [11/26/2016] [facility] 13Result Comment: [11/26/2016] [facility] 14Result Comment: [11/26/2016] [facility] 15Result Comment: [11/26/2016] [facility] 16Result Comment: [11/26/2016] [facility] 17Result Comment: [11/26/2016] [facility] 18Result Comment: [11/26/2016] [facility] 19Result Comment: [11/26/2016] [facility] 20Result Comment: [11/26/2016] [facility] 21Result Comment: [11/26/2016] [facility] 22Result Comment: [11/26/2016] [facility] 23Result Comment: [11/26/2016] [facility] 24Result Comment: [11/26/2016] [facility] 25Result Comment: [11/26/2016] [facility] 26Result Comment: [11/26/2016] [facility] 27Result Comment: [11/26/2016] [facility] 28Result Comment: [11/26/2016] [facility] 29Result Comment: [11/26/2016] [facility] 30Result Comment: [11/26/2016] [facility] 31Result Comment: [11/26/2016] [facility] 32Result Comment: [11/26/2016] [facility] 33Result Comment: [11/26/2016] [facility] Medications lidocaine 4% topical film 1 [...]
--- OUTSIDE RECORDS SUMMARY | 2024-05-20 07:39 | XMS_ITS | Continuity of Care Document ---
Author Organization [facility] Ethan lt Address [address] [place] [address]- Care Team Providers Care Director Workforce Management Name Role Phone Karthik HENLEY, Isaiah Douglas Primary Care Physician [phone] Encounter [facility] Date(s): 04/05/20 - 05/05/20 [facility] Adult [address] [place] [address]- [facility] Allergies, Adverse Reactions, Alerts Substance [...] 1Result Comment: [facility]-[id number] 2Location History: [facility] [place] 3Result Comment: [11/26/2016] [facility] 4Result Comment: [11/26/2016] [facility] 5Result Comment: [11/26/2016] [facility] 6Result Comment: [11/26/2016] [facility] 7Result Comment: [11/26/2016] [facility] 8Result Comment: [11/26/2016] [facility] 9Result Comment: [11/26/2016] [facility] 10Result Comment: [11/26/2016] [facility] 11Result Comment: [11/26/2016] [facility] 12Result Comment: [11/26/2016] [facility] 13Result Comment: [11/26/2016] [facility] 14Result Comment: [11/26/2016] [facility] 15Result Comment: [11/26/2016] [facility] 16Result Comment: [11/26/2016] [facility] 17Result Comment: [11/26/2016] [facility] 18Result Comment: [11/26/2016] [facility] 19Result Comment: [11/26/2016] [facility] 20Result Comment: [11/26/2016] [facility] 21Result Comment: [11/26/2016] [facility] 22Result Comment: [11/26/2016] [facility] 23Result Comment: [11/26/2016] [facility] 24Result Comment: [11/26/2016] [facility] 25Result Comment: [11/26/2016] [facility] 26Result Comment: [11/26/2016] [facility] 27Result Comment: [11/26/2016] [facility] 28Result Comment: [11/26/2016] [facility] 29Result Comment: [11/26/2016] [facility] 30Result Comment: [11/26/2016] [facility] 31Result Comment: [11/26/2016] [facility] 32Result Comment: [11/26/2016] [facility] 33Result Comment: [11/26/2016] [facility] Medications Flovent HFA 110 mcg/inh inhalation [...] 4 Refills, Maintenance, 02/26/20 12:05:00 EDT, Tablet, [facility], 153, cm, 02/26/20 12:03:00 EDT, Height, 62, kg, 01/02/20 11:03:00 EDT, Dry Weight Start Date: 02/26/20 Status: Ordered lisinopril 20 mg oral tablet 20 mg, 1, tablet, By Mouth, Daily, # 30 tablet, Refills 0, Tot. Refills 0, Maintenance, 05/05/20 7:46:00 EDT, Route to Pharmacy Electronically, [facility], 153, cm, 05/05/20 7:32:00 EDT, [...]
--- OUTSIDE RECORDS SUMMARY | 2024-05-20 07:39 | XMS_ITS | Continuity of Care Document ---
Author Organization [facility] Ethan lt Address [address] [place] [address]- Care Team Providers Care Watch Repair Technician Name Role Phone Karthik HENLEY, Isaiah Douglas Primary Care Physician En[facility] Date(s): 10/11/22 - 11/10/22 [facility] Adult [address] [place] [address]- Allergies, Adverse Reactions, Alerts Substance Reaction Severity Status codeine 1 Surgical adhesive ta pe itching Active Adhesive Bandage 2 Rash Active riTUXimab 3 Severe Active 1hives 2surgical tape allergy as per family 3developed anaphylaxis with throat closure sensation and facial swelling needed brief epinephrine drip Immunizations Given and Recorded Vaccine Date Status Refusal Reason tetanus-diphtheria toxoids (Td) 1 08/15/22 Given [id number] bivalent booster vax 07/05/22 Recorded influenza virus [...] Given Parent Or Guardian Refuses 1Result Comment: [id number] 2Result Comment: [facility] [place] 3Result Comment: [facility]-[id number] 4Location History: [facility] [place] 5Result Comment: [11/26/2016] [facility] 6Result Comment: [11/26/2016] [facility] 7Result Comment: [11/26/2016] [facility] 8Result Comment: [11/26/2016] [facility] 9Result Comment: [11/26/2016] [facility] 10Result Comment: [11/26/2016] [facility] 11Result Comment: [11/26/2016] [facility] 12Result Comment: [11/26/2016] [facility] 13Result Comment: [11/26/2016] [facility] 14Result Comment: [11/26/2016] [facility] 15Result Comment: [11/26/2016] [facility] 16Result Comment: [11/26/2016] [facility] 17Result Comment: [11/26/2016] [facility] 18Result Comment: [11/26/2016] [facility] 19Result Comment: [11/26/2016] [facility] 20Result Comment: [11/26/2016] [facility] 21Result Comment: [11/26/2016] [facility] 22Result Comment: [11/26/2016] [facility] 23Result Comment: [11/26/2016] [facility] 24Result Comment: [11/26/2016] [facility] 25Result Comment: [11/26/2016] [facility] 26Result Comment: [11/26/2016] [facility] 27Result Comment: [11/26/2016] [facility] 28Result Comment: [11/26/2016] [facility] 29Result Comment: [11/26/2016] [facility] 30Result Comment: [11/26/2016] [facility] 31Result Comment: [11/26/2016] [facility] 32Result Comment: [11/26/2016] [facility] 33Result Comment: [11/26/2016] [facility] 34Result Comment: [11/26/2016] [facility] 35Result Comment: [11/26/2016] [facility] Medications cholecalciferol 50 mcg (2000 intl [...] Role: Lifetime Consulting Physician Address: Address: [address] [place] [address], [facility] [address] [place] [address]- [place] Name: Lashonda Clifford Position: [facility] Outreach Member Role: Lifetime Consulting Physician Name: Tiera Wadsworth RN Position: [facility] RN Member Role: Primary Care Nurse Name: Isaiah Angeles MD Position: [facility] Primary Care Physician Member Role: PCP Address: Address: [address] [place] [phone]- [place] Name: Annalise Lara RN Position: [facility] RN Member Role: Primary Care Nurse Name: Mark Wilkes MD Position: [facility] Renal MD Member Role: Lifetime Consulting Physician Address: Address: [address] [facility] [place] [address]- [place] Name: Bibiana Treviño RN Position: [facility] RN Member Role: Primary Care Nurse Care Team Related Persons Name: MIRA MILLER Address: [address] [phone] Name: MIRA MILLER Address: [address] [id number] Name: MIRA MILLER Address: [address] [phone] Name: MIRA MILLER Address: [address] [phone] Name: MIRA MILLER Address: [address] [id number] Name: MIRA MILLER Address: [address] [phone] Name: MIRA MILLER Address: [address] [phone] Name: PRATEEK MILLER Address: [address] [address] Name: BELEN MILLER Address: [address] [address] Name: BELEN MILLER Address: [address] [address]
--- OUTSIDE RECORDS SUMMARY | 2024-05-20 07:39 | XMS_ITS | Continuity of Care Document ---
Author Organization [facility] Address [address] [place] [address]- Care Team Providers Care Wrist Liner Name Role Phone Isaiah Angeles MD Primary Care Physician Encounter [facility] Date(s): 11/12/19 - 03/11/20 [facility] [address] [place] [address]- [facility] Attending Physician: Corrine Salgado DO Admitting Physician: Corrine Salgado DO Referring Physician: Isaiah Angeles MD Allergies, Adverse [...] Parent Or Guardian Refuses 1Result Comment: [facility]-[id number] 2Location History: [facility] [place] 3Result Comment: [11/26/2016] [facility] 4Result Comment: [11/26/2016] [facility] 5Result Comment: [11/26/2016] [facility] 6Result Comment: [11/26/2016] [facility] 7Result Comment: [11/26/2016] [facility] 8Result Comment: [11/26/2016] [facility] 9Result Comment: [11/26/2016] [facility] 10Result Comment: [11/26/2016] [facility] 11Result Comment: [11/26/2016] [facility] 12Result Comment: [11/26/2016] [facility] 13Result Comment: [11/26/2016] [facility] 14Result Comment: [11/26/2016] [facility] 15Result Comment: [11/26/2016] [facility] 16Result Comment: [11/26/2016] [facility] 17Result Comment: [11/26/2016] [facility] 18Result Comment: [11/26/2016] [facility] 19Result Comment: [11/26/2016] [facility] 20Result Comment: [11/26/2016] [facility] 21Result Comment: [11/26/2016] [facility] 22Result Comment: [11/26/2016] [facility] 23Result Comment: [11/26/2016] [facility] 24Result Comment: [11/26/2016] [facility] 25Result Comment: [11/26/2016] [facility] 26Result Comment: [11/26/2016] [facility] 27Result Comment: [11/26/2016] [facility] 28Result Comment: [11/26/2016] [facility] 29Result Comment: [11/26/2016] [facility] 30Result Comment: [11/26/2016] [facility] 31Result Comment: [11/26/2016] [facility] 32Result Comment: [11/26/2016] [facility] 33Result Comment: [11/26/2016] [facility] Medications Flovent HFA 110 mcg/inh inhalation aerosol 2 puffs, Inhalation, 2 times a day, use without spacer, swallowed (not inhaled) for treatment of eosinophilic esophagitis, # 12 Gm, 3 Refills, Maintenance, 03/08/20 13:51:00 EDT, Aerosol, [facility], 153, cm, 03/01/20 14:05:00 EDT, Chela... Start Date: 03/08/20 Status: Ordered furosemide 20 [...]
--- OUTSIDE RECORDS SUMMARY | 2024-05-20 07:39 | XMS_ITS | Continuity of Care Document ---
Author Organization [facility] Ethan lt Address [address] [place] [address]- Care Team Providers Care Machine Coil Assembler Name Role Phone Karthik HENLEY, Isaiah Douglas Primary Care Physician En[facility] Date(s): 08/31/21 - 09/30/21 [facility] Adult [address] [place] [address]- Allergies, Adverse Reactions, Alerts Substance Reaction Severity [...] Guardian Refuses 1Result Comment: [facility]-[id number] 2Location History: [facility] [place] 3Result Comment: [11/26/2016] [facility] 4Result Comment: [11/26/2016] [facility] 5Result Comment: [11/26/2016] [facility] 6Result Comment: [11/26/2016] [facility] 7Result Comment: [11/26/2016] [facility] 8Result Comment: [11/26/2016] [facility] 9Result Comment: [11/26/2016] [facility] 10Result Comment: [11/26/2016] [facility] 11Result Comment: [11/26/2016] [facility] 12Result Comment: [11/26/2016] [facility] 13Result Comment: [11/26/2016] [facility] 14Result Comment: [11/26/2016] [facility] 15Result Comment: [11/26/2016] [facility] 16Result Comment: [11/26/2016] [facility] 17Result Comment: [11/26/2016] [facility] 18Result Comment: [11/26/2016] [facility] 19Result Comment: [11/26/2016] [facility] 20Result Comment: [11/26/2016] [facility] 21Result Comment: [11/26/2016] [facility] 22Result Comment: [11/26/2016] [facility] 23Result Comment: [11/26/2016] [facility] 24Result Comment: [11/26/2016] [facility] 25Result Comment: [11/26/2016] [facility] 26Result Comment: [11/26/2016] [facility] 27Result Comment: [11/26/2016] [facility] 28Result Comment: [11/26/2016] [facility] 29Result Comment: [11/26/2016] [facility] 30Result Comment: [11/26/2016] [facility] 31Result Comment: [11/26/2016] [facility] 32Result Comment: [11/26/2016] [facility] 33Result Comment: [11/26/2016] [facility]ations lidocaine 4% topical film 1 [...]
--- OUTSIDE RECORDS SUMMARY | 2024-05-20 07:39 | XMS_ITS | Continuity of Care Document ---
Author Organization [facility] Address [address] [place] [address]- Care Team Providers Care Securities Trader Name Role Phone Karthik HENLEY, Isaiah Douglas Primary Care Physician Encounter [facility] Date(s): 04/19/22 - 05/19/22 [facility] [address] [place] [address]- Allergies, Adverse Reactions, Alerts Substance Reaction Severity [...] Given Parent Or Guardian Refuses 1Result Comment: [facility]-[id number] 2Location History: [facility] [place] 3Result Comment: [11/26/2016] [facility] 4Result Comment: [11/26/2016] [facility] 5Result Comment: [11/26/2016] [facility] 6Result Comment: [11/26/2016] [facility] 7Result Comment: [11/26/2016] [facility] 8Result Comment: [11/26/2016] [facility] 9Result Comment: [11/26/2016] [facility] 10Result Comment: [11/26/2016] [facility] 11Result Comment: [11/26/2016] [facility] 12Result Comment: [11/26/2016] [facility] 13Result Comment: [11/26/2016] [facility] 14Result Comment: [11/26/2016] [facility] 15Result Comment: [11/26/2016] [facility] 16Result Comment: [11/26/2016] [facility] 17Result Comment: [11/26/2016] [facility] 18Result Comment: [11/26/2016] [facility] 19Result Comment: [11/26/2016] [facility] 20Result Comment: [11/26/2016] [facility] 21Result Comment: [11/26/2016] [facility] 22Result Comment: [11/26/2016] [facility] 23Result Comment: [11/26/2016] [facility] 24Result Comment: [11/26/2016] [facility] 25Result Comment: [11/26/2016] [facility] 26Result Comment: [11/26/2016] [facility] 27Result Comment: [11/26/2016] [facility] 28Result Comment: [11/26/2016] [facility] 29Result Comment: [11/26/2016] [facility] 30Result Comment: [11/26/2016] [facility] 31Result Comment: [11/26/2016] [facility] 32Result Comment: [11/26/2016] [facility] 33Result Comment: [11/26/2016] [facility] Flovent 110 mcg Inhaler HFA [...] Name: Karthik HENLEY, Isaiah Douglas Address: Address: [address] [place] [id number]
--- OUTSIDE RECORDS SUMMARY | 2024-05-20 07:39 | XMS_ITS | Continuity of Care Document ---
Author Organization [facility] Ethan lt Address [address] [place] [address]- Care Team Providers Care Rn Circulating Name Role Phone Karthik HENLEY, Isaiah Douglas Primary Care Physician Encounter [facility] Date(s): 02/24/21 - 03/26/21 [facility] Adult [address] [place] [address]- Allergies, Adverse Reactions, Alerts Substance Reaction Severity [...] Guardian Refuses 1Result Comment: [facility]-[id number] 2Location History: [facility] [place] 3Result Comment: [11/26/2016] [facility] 4Result Comment: [11/26/2016] [facility] 5Result Comment: [11/26/2016] [facility] 6Result Comment: [11/26/2016] [facility] 7Result Comment: [11/26/2016] [facility] 8Result Comment: [11/26/2016] [facility] 9Result Comment: [11/26/2016] [facility] 10Result Comment: [11/26/2016] [facility] 11Result Comment: [11/26/2016] [facility] 12Result Comment: [11/26/2016] [facility] 13Result Comment: [11/26/2016] [facility] 14Result Comment: [11/26/2016] [facility] 15Result Comment: [11/26/2016] [facility] 16Result Comment: [11/26/2016] [facility] 17Result Comment: [11/26/2016] [facility] 18Result Comment: [11/26/2016] [facility] 19Result Comment: [11/26/2016] [facility] 20Result Comment: [11/26/2016] [facility] 21Result Comment: [11/26/2016] [facility] 22Result Comment: [11/26/2016] [facility] 23Result Comment: [11/26/2016] [facility] 24Result Comment: [11/26/2016] [facility] 25Result Comment: [11/26/2016] [facility] 26Result Comment: [11/26/2016] [facility] 27Result Comment: [11/26/2016] [facility] 28Result Comment: [11/26/2016] [facility] 29Result Comment: [11/26/2016] [facility] 30Result Comment: [11/26/2016] [facility] 31Result Comment: [11/26/2016] [facility] 32Result Comment: [11/26/2016] [facility] 33Result Comment: [11/26/2016] [facility]ations levothyroxine 125 mcg (0.125 mg) [...]
--- OUTSIDE RECORDS SUMMARY | 2024-05-20 07:39 | XMS_ITS | Continuity of Care Document ---
Author Organization [facility] Address [address] [place] [address]- Care Team Providers Care Validation Scientist Name Role Phone Karthik HENLEY, Isaiah Douglas Primary Care Physician [phone] Encounter [facility] Date(s): 11/07/20 - 12/07/20 [facility] [address] [place] [address] Allergies, Adverse Reactions, Alerts Substance [...] [facility]-[id number] 2Location History: [facility] [place] 3Result Comment: [11/26/2016] [facility] 4Result Comment: [11/26/2016] [facility] 5Result Comment: [11/26/2016] [facility] 6Result Comment: [11/26/2016] [facility] 7Result Comment: [11/26/2016] [facility] 8Result Comment: [11/26/2016] [facility] 9Result Comment: [11/26/2016] [facility] 10Result Comment: [11/26/2016] [facility] 11Result Comment: [11/26/2016] [facility] 12Result Comment: [11/26/2016] [facility] 13Result Comment: [11/26/2016] [facility] 14Result Comment: [11/26/2016] [facility] 15Result Comment: [11/26/2016] [facility] 16Result Comment: [11/26/2016] [facility] 17Result Comment: [11/26/2016] [facility] 18Result Comment: [11/26/2016] [facility] 19Result Comment: [11/26/2016] [facility] 20Result Comment: [11/26/2016] [facility] 21Result Comment: [11/26/2016] [facility] 22Result Comment: [11/26/2016] [facility] 23Result Comment: [11/26/2016] [facility] 24Result Comment: [11/26/2016] [facility] 25Result Comment: [11/26/2016] [facility] 26Result Comment: [11/26/2016] [facility] 27Result Comment: [11/26/2016] [facility] 28Result Comment: [11/26/2016] [facility] 29Result Comment: [11/26/2016] [facility] 30Result Comment: [11/26/2016] [facility] 31Result Comment: [11/26/2016] [facility] 32Result Comment: [11/26/2016] [facility] 33Result Comment: [11/26/2016] [facility] Medications lidocaine 4% topical film 1 [...]
--- OUTSIDE RECORDS SUMMARY | 2024-05-20 07:40 | XMS_ITS | Continuity of Care Document ---
Author Organization [facility] Address [address] [place] [address]- Care Team Providers Care Race Engine Builder Name Role Phone Isaiah Angeles MD Primary Care Physician Encounter [facility] Date(s): 06/19/22 - 06/19/[address] [address]- Discharge Disposition: A-D/C Home Attending Physician: Shabbir Hopson MD Admitting Physician: Shabbir Hopson MD Referring Physician: Not on Staff, Referring [...] Comment: [facility] [place] 2Result Comment: [facility]-[id number] 3Location History: [facility] [place] 4Result Comment: [11/26/2016] [facility] 5Result Comment: [11/26/2016] [facility] 6Result Comment: [11/26/2016] [facility] 7Result Comment: [11/26/2016] [facility] 8Result Comment: [11/26/2016] [facility] 9Result Comment: [11/26/2016] [facility] 10Result Comment: [11/26/2016] [facility] 11Result Comment: [11/26/2016] [facility] 12Result Comment: [11/26/2016] [facility] 13Result Comment: [11/26/2016] [facility] 14Result Comment: [11/26/2016] [facility] 15Result Comment: [11/26/2016] [facility] 16Result Comment: [11/26/2016] [facility] 17Result Comment: [11/26/2016] [facility] 18Result Comment: [11/26/2016] [facility] 19Result Comment: [11/26/2016] [facility] 20Result Comment: [11/26/2016] [facility] 21Result Comment: [11/26/2016] [facility] 22Result Comment: [11/26/2016] [facility] 23Result Comment: [11/26/2016] [facility] 24Result Comment: [11/26/2016] [facility] 25Result Comment: [11/26/2016] [facility] 26Result Comment: [11/26/2016] [facility] 27Result Comment: [11/26/2016] [facility] 28Result Comment: [11/26/2016] [facility] 29Result Comment: [11/26/2016] [facility] 30Result Comment: [11/26/2016] [facility] 31Result Comment: [11/26/2016] [facility] 32Result Comment: [11/26/2016] [facility] 33Result Comment: [11/26/2016] [facility] 34Result Comment: [11/26/2016] [facility] Flovent 110 mcg Inhaler HFA 1, [...] Range]: 1 2 3 Height 153 cm (06/19/22 11:31 AM) 153 cm (06/19/22 10:39 AM) 153 cm (06/19/22 9:22 AM) Weight 60.8 kg (06/19/22 9:22 AM) 60.8 kg (06/19/22 8:28 AM) 60.8 kg (06/19/22 8:24 AM) Oxygen Saturation [94-100 %] 100 % (06/19/22 11:31 AM) 100 % (06/19/22 10:39 AM) 100 % (06/19/22 8:59 AM) Pulse Rate [55-90 bpm] 88 bpm (06/19/22 11:31 AM) 94 bpm *H* (06/19/22 10:39 AM) 87 bpm (06/19/22 8:59 AM) Body Mass Index [18.5-24.99 kg/m2] 25.97 kg/m2 *H* (06/19/22 9:22 AM) 25.97 kg/m2 *H* (06/19/22 8:24 AM) Blood Pressure [90-138/55-84 mm Hg] 127/88mm Hg (06/19/22 11:31 AM) 120/89mm Hg (06/19/22 10:39 AM) 104/57mm Hg (06/19/22 8:59 AM) Respiratory Rate [16-30 br/min] 22 br/min (06/19/22 11:31 AM) 25 br/min (06/19/22 10:39 AM) 22 br/min (06/19/22 8:59 AM) Temperature [96.8-100.4 DegF] 97.8 DegF (06/19/22 8:59 AM) 97.9 DegF (06/19/22 8:24 AM) Liters per Minute 0 L/min (06/19/22 11:31 AM) 0 L/min (06/19/22 10:39 AM) 0 L/min (06/19/22 8:59 AM) Mode of Delivery (Oxygen) Room air (06/19/22 11:31 AM) Room air (06/19/22 10:39 AM) Room air (06/19/22 8:59 AM) Blood pressure sites Arm, right (06/19/22 11:31 AM) Arm, right (06/19/22 10:39 AM) Arm, right (06/19/22 8:59 AM) Temperature Route Oral (06/19/22 8:59 AM) Temporal (06/19/22 8:24 AM) Dry Weight 60.8 kg (06/19/22 9:22 AM) 60.8 kg (06/19/22 8:28 AM) 60.8 kg (06/19/22 8:24 AM) Weight Obtained Via Standing scale (06/19/22 8:24 AM) Dry Weight Obtained Via Standing scale (06/19/22 8:24 AM) Social History Social History Type Response Smoking Status Never smoker entered on: 10/24/17 Sex Patient Care team information Personnel Name: Isaiah Angeles MD Address: Address: [address] [place] [id number]
--- OUTSIDE RECORDS SUMMARY | 2024-05-20 07:40 | XMS_ITS | Continuity of Care Document ---
Author Organization [facility] Address [address] [place] [address]- Care Team Providers Care Inpatient Auditor Name Role Phone Karthik HENLEY, Isaiah Douglas Primary Care Physician Encounter [facility] Date(s): 03/27/24 - 04/26/[address] [address]- Allergies, Adverse Reactions, Alerts Substance Reaction Severity [...] corded tetanus-diphtheria toxoids (Td) 10 08/15/22 Given [id number] bivalent booster vax 07/05/22 Recorded SARS-CoV-2 (COVID-19) [...] Comment: [facility] [place] 2Result Comment: [facility]-[id number] 3Location History: [facility] [place] 4Result Comment: [11/26/2016] [facility] 5Result Comment: [11/26/2016] [facility] 6Result Comment: [11/26/2016] [facility] 7Result Comment: [11/26/2016] [facility] 8Result Comment: [11/26/2016] [facility] 9Result Comment: [11/26/2016] [facility] 10Result Comment: [id number] 11Result Comment: [11/26/2016] [facility] 12Result Comment: [11/26/2016] [facility] 13Result Comment: [11/26/2016] [facility] 14Result Comment: [11/26/2016] [facility] 15Result Comment: [11/26/2016] [facility] 16Result Comment: [11/26/2016] [facility] 17Result Comment: [11/26/2016] [facility] 18Result Comment: [11/26/2016] [facility] 19Result Comment: [11/26/2016] [facility] 20Result Comment: [11/26/2016] [facility] 21Result Comment: [11/26/2016] [facility] 22Result Comment: [11/26/2016] [facility] 23Result Comment: [11/26/2016] [facility] 24Result Comment: [11/26/2016] [facility] 25Result Comment: [11/26/2016] [facility] 26Result Comment: [11/26/2016] [facility] 27Result Comment: [11/26/2016] [facility] 28Result Comment: [11/26/2016] [facility] 29Result Comment: [11/26/2016] [facility] 30Result Comment: [11/26/2016] [facility] 31Result Comment: [11/26/2016] [facility] 32Result Comment: [11/26/2016] [facility] 33Result Comment: [11/26/2016] [facility] 34Result Comment: [11/26/2016] [facility] 35Result Comment: [11/26/2016] [facility] Medications [...] Personnel Name: Live Leyva MD Position: [facility] Physician -Physician Practices Member Role: Lifetime Consulting Physician Name: Jeanmarie Lopez MD Position: [facility] Renal MD Member Role: Lifetime Consulting Physician Address: Address: [address] [place] [address] [address] [facility] [address]- Name: Lashonda Clifford Position: [facility] Outreach Member Role: Lifetime Consulting Physician Name: Tiera Wadsworth RN Position: [facility] RN Member Role: Primary Care Nurse Name: John Davila DO Position: [facility] Renal MD Member Role: Lifetime Consulting Physician Address: Address: [address] [facility] [place] [address]- [place] Name: Karthik HENLEY, Isaiah Douglas Position: [facility] Physician - Primary Care Member Role: PCP Address: Address: [address] [place] [address]- [place] Name: Annalise Lara RN Position: S RN Member Role: Primary Care Nurse Name: Mark Wilkes MD Position: [facility] Renal MD Member Role: Lifetime Consulting Physician Address: Address: [address] [place] [address] [facility] [place] [address]- [place] Name: Bibiana Treviño RN Position: [facility] RN Member Role: Primary Care Nurse Care Team Related Persons Name: MIRA MILLER Address: home [address] [id number] Name: MIRA MILLER Address: [place] Address: [address] [place] [address] Name: PRATEEK MILLER Address: home [address] [place] [address] Name: BELEN MILLER Address: [address] [place] [address] Name: BELEN MILLER Address: home [address] [place] [address]
--- OUTSIDE RECORDS SUMMARY | 2024-05-20 07:40 | XMS_ITS | Continuity of Care Document ---
Author Organization [facility] Ethan lt Address [address] [place] [address]- Care Team Providers Care Auto Bench Mechanic Name Role Phone Karthik HENLEY, Isaiah Douglas Primary Care Physician Encounter [facility] Date(s): 05/14/23 - 06/13/23 [facility] Adult [address] [place] [address]- Allergies, Adverse Reactions, Alerts Substance Reaction Severity [...] corded tetanus-diphtheria toxoids (Td) 10 08/15/22 Given [id number] bivalent booster vax 07/05/22 Recorded SARS-CoV-2 (COVID-19) [...] Comment: [facility] [place] 2Result Comment: [facility]-[id number] 3Location History: [facility] [place] 4Result Comment: [11/26/2016] [facility] 5Result Comment: [11/26/2016] [facility] 6Result Comment: [11/26/2016] [facility] 7Result Comment: [11/26/2016] [facility] 8Result Comment: [11/26/2016] [facility] 9Result Comment: [11/26/2016] [facility] 10Result Comment: [id number] 11Result Comment: [11/26/2016] [facility] 12Result Comment: [...] [facility] 33Result Comment: [11/26/2016] [facility] 34Result Comment: [11/26/2016] [facility] 35Result Comment: [11/26/2016] [facility] Medications [...] Refills, Maintenance, 05/02/23 12:03:00 EDT, [facility], Partial fill upon patient request [...] Team Personnel Name: Margaux Vivas RN Position: [facility] RN Member Role: Primary Care Nurse Name: Live Leyva MD Position: [facility] Physician -Physician Practices Member Role: Lifetime Consulting Physician Name: Jeanmarie Lopez MD Position: [facility] Renal MD Member Role: Lifetime Consulting Physician Address: Address: [address] [place] [address], [address] [facility] [address] Name: Lashonda Clifford Position: [facility] Outreach Member Role: Lifetime Consulting Physician Name: Tiera Wadsworth RN Position: [facility] RN Member Role: Primary Care Nurse Name: Isaiah Angeles MD Position: [facility] Physician - Primary Care Member Role: PCP Address: Address: [address] [place] [phone]- [place] Name: Annalise Lara RN Position: [facility] RN Member Role: Primary Care Nurse Name: Mark Wilkes MD Position: [facility] Renal MD Member Role: Lifetime Consulting Physician Address: Address: [address] [place] [address] [facility] [place] [address]- Name: Bibiana Treviño RN Position: [facility] RN Member Role: Primary Care Nurse Care Team Related Persons Name: MIRA MILLER Address: [place] Address: home [address] [place] [address] Name: MIRA MILLER Address: home [address] [address] Name: PRATEEK MILLER Address: [address] [place] [address] Name: BELEN MILLER Address: [address] [place] [address] Name: BELEN MILLER Address: home [address] [place] [address]
--- OUTSIDE RECORDS SUMMARY | 2024-05-20 07:40 | XMS_ITS | Continuity of Care Document ---
Author Organization [facility] Address [address] [place] [address]- Care Team Providers Care Political Reporter Name Role Phone Karthik HENLEY, Isaiah Douglas Primary Care Physician [phone] Encounter [facility] Date(s): 05/11/23 - 05/11/[address] [address]- Discharge Disposition: A-D/C Home Attending Physician: Myke Linares MD Admitting Physician: Myke Linares MD Referring Physician: Not on Staff, Referring [...] Reason tetanus-diphtheria toxoids (Td) 1 08/15/22 Given [id number] bivalent booster vax 07/05/22 Recorded influenza virus [...] pediatric vaccine 35 96 Recorded 1Result Comment: [id number] 2Result Comment: [facility] [place] 3Result Comment: [facility]-[id number] 4Location History: [facility] [place] 5Result Comment: [11/26/2016] [facility] 6Result Comment: [11/26/2016] [facility] 7Result Comment: [11/26/2016] [facility] 8Result Comment: [11/26/2016] [facility] 9Result Comment: [11/26/2016] [facility] 10Result Comment: [11/26/2016] [facility] 11Result Comment: [11/26/2016] [facility] 12Result Comment: [11/26/2016] [facility] 13Result Comment: [11/26/2016] [facility] 14Result Comment: [11/26/2016] [facility] 15Result Comment: [11/26/2016] [facility] 16Result Comment: [11/26/2016] [facility] 17Result Comment: [11/26/2016] [facility] 18Result Comment: [11/26/2016] [facility] 19Result Comment: [11/26/2016] [facility] 20Result Comment: [11/26/2016] [facility] 21Result Comment: [11/26/2016] [facility] 22Result Comment: [11/26/2016] [facility] 23Result Comment: [11/26/2016] [facility] 24Result Comment: [11/26/2016] [facility] 25Result Comment: [11/26/2016] [facility] 26Result Comment: [11/26/2016] [facility] 27Result Comment: [11/26/2016] [facility] 28Result Comment: [11/26/2016] [facility] 29Result Comment: [11/26/2016] [facility] 30Result Comment: [11/26/2016] [facility] 31Result Comment: [11/26/2016] [facility] 32Result Comment: [11/26/2016] [facility] 33Result Comment: [11/26/2016] [facility] 34Result Comment: [11/26/2016] [facility] 35Result Comment: [11/26/2016] [facility] Medications Budesonide 1 mg, 1mg/2ml, Refills 0, Maintenance, 02/13/23 14:21:00 EDT Start Date: 02/13/23 Status: Ordered cholecalciferol 50 mcg (2000 intl units) oral tablet, chewable 2 tablets, By Mouth, Daily, # 60 tablet, 7 Refills, Maintenance, 05/24/23 11:31:00 EDT, [facility], Partial fill upon patient request [...] 11:31:00 EDT, 09/26/22 11:31:00 EST, [facility], Partial fill upon patient request [...] drug. Start Date: 02/13/23 Status: Ordered Lorazepam = 0.5 mg, PRN as needed for anxiety, 0 Refills, Maintenance, 04/05/22 17:20:00 EDT, Partial fill upon patient request if the prescription is for a schedule II opioid drug. Start Date: 04/05/22 Status: Ordered Nurtec ODT 75 mg oral tablet, disintegrating PLACE ONE TABLET BY MOUTH EVERY OTHER DAY Start Date: 04/05/22 Status: Ordered Vitamin D3 [...] Exam Date Time Procedure Performing Provider Status 05/11/23 10:52 AM Chest Single Frontal View Nathalie Newton; Auth (Verified) Notes: (Chest Single Frontal View) Reason For Exam: Shortness of Breath RESULT: Chest Single Frontal View Chest Single Frontal View Hx of Present Illness: Worsening SOB CP with activity. Cardiac Hx; COMPARISON: Earlier today FINDINGS: LINES AND TUBES: None. LUNGS AND PLEURA: Clear lungs. Normal pulmonary vascularity. No pleural effusion. No pneumothorax. HEART, MEDIASTINUM AND VINAY: Heart is normal in size. Normal mediastinal and hilar contour. BONES AND SOFT TISSUES: Normal. IMPRESSION: Normal. WSN: [id number] Ordering Physician: Myke Linares Dictated By: Blair Mccallum MD Dictated Date/Time: 05/11/23 10:56 a Reviewed By: Blair Mccallum MD Signed By: Blair Mccallum MD Signed Date/Time: 05/11/23 10:56 am Transcribed By: ABAD Transcribed Date/Time: 05/11/23 10:55 am * Exam Date Time Procedure Performing Provider Status 05/11/23 10:03 AM Chest 2 Views Frontal and Lat Nathalie Delgado; Auth (Verified) Notes: (Chest 2 Views Frontal and Lat) Reason For Exam: Chest Pain;Other: RESULT: Chest 2 Views Frontal and Lat Chest 2 Views Frontal and Lat Hx of Present Illness: Worsening SOB CP with activity. Cardiac Hx; Reason: Other:; Chest Pain; Clinical Question(s): Other: COMPARISON: None. FINDINGS: LINES AND TUBES: None. LUNGS AND PLEURA: There is overpenetration of the PA view on the right. A right apical pneumothorax cannot be excluded although this is likely artifactual. I recommend repeat PA view of the chest. The lungs are otherwise clear. No pleural effusion. HEART, MEDIASTINUM AND VINAY: Heart is normal in size. Normal mediastinal and hilar contour. BONES AND SOFT TISSUES: No acute abnormality. IMPRESSION: Overpenetration of the right lung, and a small right apical pneumothorax cannot be excluded. I recommend a repeat PA view of the chest. An actionable message ([place]) has been communicated via the [employer] system on 05/11/2023 10:09 AM, Message ID [id number]. WSN: [id number] Ordering Physician: Blessing Fernandes Dictated By: Marlene Galloway MD Dictated Date/Time: 05/11/23 10:09 a Reviewed By: Marlene Galloway MD Signed By: Marlene Galloway MD Signed Date/Time: 05/11/23 10:09 am Transcribed By: ABAD Transcribed Date/Time: 05/11/23 10:07 am Vital Signs Most recent to oldest [Reference Range]: 1 2 3 Height 152 cm (05/11/23 11:35 AM) 152 cm (05/11/23 10:40 AM) 152 cm (05/11/23 8:21 AM) Weight 69 kg (05/11/23 11:35 AM) 69 kg (05/11/23 10:40 AM) 69 kg (05/11/23 8:21 AM) Oxygen Saturation [94-100 %] 100 % (05/11/23 11:35 AM) 100 % (05/11/23 10:40 AM) 100 % (05/11/23 8:21 AM) Pulse Rate [55-90 bpm] 88 bpm (05/11/23 11:35 AM) 89 bpm (05/11/23 10:40 AM) 90 bpm (05/11/23 8:21 AM) Body Mass Index [18.5-24.99 kg/m2] 29.86 kg/m2 *H* (05/11/23 11:35 AM) 29.86 kg/m2 *H* (05/11/23 10:40 AM) Blood Pressure [90-138/55-84 mm Hg] 119/86mm Hg (05/11/23 11:35 AM) 131/91mm Hg (05/11/23 10:40 AM) 126/94mm Hg (05/11/23 8:21 AM) Respiratory Rate [16-30 br/min] 18 br/min (05/11/23 11:35 AM) 14 br/min *L* (05/11/23 10:40 AM) 20 br/min (05/11/23 8:21 AM) Temperature [96.8-100.4 DegF] 98.9 DegF (05/11/23 10:40 AM) 98.0 DegF (05/11/23 8:21 AM) Mode of Delivery (Oxygen) Room air (05/11/23 11:35 AM) Room air (05/11/23 10:40 AM) Room air (05/11/23 8:21 AM) Blood pressure sites Arm, left (05/11/23 11:35 AM) Arm, right (05/11/23 8:21 AM) Temperature Route Oral (05/11/23 10:40 AM) Temporal (05/11/23 8:21 AM) Dry Weight 69 kg (05/11/23 11:35 AM) 69 kg (05/11/23 10:40 AM) 69 kg (05/11/23 8:21 AM) Social History Social History Type Response Smoking Status Never smoker entered on: 10/24/17 Sex Note * Myke Linares MD: PERFORM, SIGN, VERIFY Event Display: Patient Education Handout Authored Date: [id number] * Myke Linares MD: PERFORM Event Display: Patient Education Leaflets Authored Date: [id number] Pleurisy (Pleuritis) ?? [id number] Pleurisy (Pleuritis) You have pleurisy. This means the lining around your lungs and chest is inflamed or irritated. Thisusually happens when you have a buildup of fluid between the layers of the pleura. The pleura linesthe lungs and the inside of your chest. This lining helps you breathe easier. Pleurisy is most often caused by a viral or bacterial infection such as tuberculosis or pneumonia. It can be caused by other conditions. It usually lasts up to 14 days depending on the cause. Pleurisy may cause sharp pain with deep breathing, coughing, sneezing, or movement. You can have shortness of breath. You may be given antiviral medicines if a virus is causing the pleurisy. For a bacterial infection,you will be given antibiotics. Your healthcare provider may prescribe other types of medicine to help treat pleurisy. Take your medicines as prescribed. Home care The following tips will help you care for your condition at home: ??? Rest at home for the first 2 to 3 days if symptoms are severe. Don't let yourself get too tiredwhen you resume activity. Ask your healthcare provider when you can go back to normal activities. ??? Don't smoke. Stay away from secondhand smoke. ??? Your healthcare provider will tell you which ove [id number] medicines to use to control pain. Talk with your provider before using other pain medicines if you have chronic liver or kidney disease or have ever had a stomach ulcer or digestive bleeding. Also talk to your provider if you are taking medicine to prevent blood clots. Never give aspirin to anyone younger than 18 who is ill with a viral infection or fever. It may cause severe liver or brain damage, or even . ?? Follow-up care Follow up with your healthcare provider, or as advised. ?? When to seek medical advice Call your healthcare provider right away if any of these occur: ??? Fever of 100.4??F (38??C) or higher , or as directed by your healthcare provider ??? Coughing up lots of colored sputum (mucus) or light, blood-tinged sputum ??? Redness, pain, or swelling of the leg ??? New symptoms develop ?? Call 911 Call 911 if any of these occur: ??? Increasing shortness of breath ??? Increasing chest pain, or pain that spreads to the neck, arm, or back ??? Coughing up blood ??? Confusion or dizziness ??? Lips or skin looks blue, purple or muñoz in color ?? Last Reviewed Date: 2022 ?? [id number] [employer]. All rights reserved. This information is not intended as a substitute for professional medical care. Always follow your healthcare professional's instructions. ?? Patient Care team information Care Team Personnel Name: Margaux Vivas RN Position: [facility] RN Member Role: Primary Care Nurse Name: Live Leyva MD Position: [facility] Physician -Physician Practices Member Role: Lifetime Consulting Physician Name: Jeanmarie Lopez MD Position: [facility] Renal MD Member Role: Lifetime Consulting Physician Address: Address: [address] [place] [address], [address] [facility] [place] [address]- [place] Name: Lashonda Clifford Position: [facility] Outreach Member Role: Lifetime Consulting Physician Name: Isaiah Angeles MD Position: [facility] Physician - Primary Care Member Role: PCP Address: Address: [address] [place] [address]- [place] Name: Annalise Lara RN Position: [facility] RN Member Role: Primary Care Nurse Name: Mark Wilkes MD Position: [facility] Renal MD Member Role: Lifetime Consulting Physician Address: Address: [address] [place] [address] [facility] [place] [address]- [place] Name: Bibiana Treviño RN Position: [facility] RN Member Role: Primary Care Nurse Name: Lincoln Alexandre RN Position: [facility] ED RN W/OE and Tasks Member Role: Patient Care Provider Name: Garima Hough Position: [facility] ED OA Member Role: Patient Care Provider Name: Myke Linares MD Position: [facility] ED Medicine MD Member Role: Admitting Physician Address: Address: [address] [place] [address]- [place] Care Team Related Persons Name: MIRA MILLER Address: home [address] [id number] Name: MIRA MILLER Address: [employer] Address: home [address] [place] [address] [place] Name: RYANJANETHPRATEEK Address: home [address] [place] [address] Name: ANGELA BELEN Address: [address] [place] [address] Name: AKASHRICARDOJANETH BELEN Address: [address] [place] [address]
--- OUTSIDE RECORDS SUMMARY | 2024-05-20 07:40 | XMS_ITS | Continuity of Care Document ---
Author Organization [facility] Ethan lt Address [address] [place] [address]- Care Team Providers Care Communication Equipment Mechanic Name Role Phone Karthik HENLEY, Isaiah Douglas Primary Care Physician Encounter [facility] Date(s): 04/30/23 - 05/30/23 [facility] Adult [address] [place] [address]- Allergies, Adverse Reactions, Alerts Substance Reaction Severity [...] corded tetanus-diphtheria toxoids (Td) 10 08/15/22 Given [id number] bivalent booster vax 07/05/22 Recorded SARS-CoV-2 (COVID-19) [...] Comment: [facility] [place] 2Result Comment: [facility]-[id number] 3Location History: [facility] [place] 4Result Comment: [11/26/2016] [facility] 5Result Comment: [11/26/2016] [facility] 6Result Comment: [11/26/2016] [facility] 7Result Comment: [11/26/2016] [facility] 8Result Comment: [11/26/2016] [facility] 9Result Comment: [11/26/2016] [facility] 10Result Comment: [id number] 11Result Comment: [11/26/2016] [facility] 12Result Comment: [11/26/2016] [facility] 13Result Comment: [11/26/2016] [facility] 14Result Comment: [11/26/2016] [facility] 15Result Comment: [11/26/2016] [facility] 16Result Comment: [11/26/2016] [facility] 17Result Comment: [11/26/2016] [facility] 18Result Comment: [11/26/2016] [facility] 19Result Comment: [11/26/2016] [facility] 20Result Comment: [11/26/2016] [facility] 21Result Comment: [11/26/2016] [facility] 22Result Comment: [11/26/2016] [facility] 23Result Comment: [11/26/2016] [facility] 24Result Comment: [11/26/2016] [facility] 25Result Comment: [11/26/2016] [facility] 26Result Comment: [11/26/2016] [facility] 27Result Comment: [11/26/2016] [facility] 28Result Comment: [11/26/2016] [facility] 29Result Comment: [11/26/2016] [facility] 30Result Comment: [11/26/2016] [facility] 31Result Comment: [11/26/2016] [facility] 32Result Comment: [11/26/2016] [facility] 33Result Comment: [11/26/2016] [facility] 34Result Comment: [11/26/2016] [facility] 35Result Comment: [11/26/2016] [facility] Medications Flovent 110 mcg Inhaler HFA [...] Refills, Maintenance, 05/02/23 12:03:00 EDT, [facility], Partial fill upon patient request if the prescription is for a schedule... Start Date: 05/02/23 Status: Ordered levothyroxine 25 mcg (0.025 mg)/mL oral solution 1 mL = 25 mcg, By Mouth, Daily, to be taken with the 200mcg liquid daily to total 225mcg daily, # 30 mL, 6 Refills, Maintenance, 05/02/23 12:01:00 EDT, [facility], Partial fill upon patient request [...] Team Personnel Name: Margaux Vivas RN Position: [facility] RN Member Role: Primary Care Nurse Name: Live Leyva MD Position: [facility] Physician -Physician Practices Member Role: Lifetime Consulting Physician Name: Jeanmarie Lopez MD Position: [facility] Renal MD Member Role: Lifetime Consulting Physician Address: Address: [address] [place] [address], [address] [facility] [address] Name: Lashonda Clifford Position: [facility] Outreach Member Role: Lifetime Consulting Physician Name: Tiera Wadsworth RN Position: [facility] RN Member Role: Primary Care Nurse Name: Isaiah Angeles MD Position: [facility] Physician - Primary Care Member Role: PCP Address: Address: [address] [place] [address]- [place] Name: Annalise Lara RN Position: [facility] RN Member Role: Primary Care Nurse Name: Mark Wilkes MD Position: [facility] Renal MD Member Role: Lifetime Consulting Physician Address: Address: [address] [place] [address] [facility] [place] [address]- Name: Bibiana Treviño RN Position: [facility] RN Member Role: Primary Care Nurse Care Team Related Persons Name: MIRA MILLER Address: [address] [id number] Name: MIRA MILLER Address: [employer] Address: [address] [place] [address] Name: PRATEEK MILLER Address: [address] [place] [address] Name: BELEN MILLER Address: [address] [place] [address] Name: BELEN MILLER Address: [address] [place] [address]
--- OUTSIDE RECORDS SUMMARY | 2024-05-20 07:40 | XMS_ITS | Continuity of Care Document ---
Author Organization [facility] Ethan lt Address [address] [place] [address]- Care Team Providers Care Business Risk Analyst Name Role Phone Karthik HENLEY, Isaiah [place] Primary Care Physician [phone] [place] [facility] [place] 02/22/23 [facility] Adult [address] [place] [address]- Allergies, Adverse Reactions, Alerts Substance Reaction Severity Status Adhesive Bandage 1 Rash Active riTUXimab 2 Severe Active codeine 3 Surgical adhesive ta pe itching Active 1surgical tape allergy as per family 2developed anaphylaxis with throat closure sensation and facial swelling needed brief epinephrine drip 3hives Immunizations Given and Recorded Vaccine Date Status Refusal Reason tetanus-diphtheria toxoids (Td) 1 08/15/22 Given [id number] bivalent booster vax 07/05/22 Recorded influenza virus [...] Given Parent Or Guardian Refuses 1Result Comment: [id number] 2Result Comment: [facility] [place] 3Result Comment: [facility]-[id number] 4Location History: [facility] [place] 5Result Comment: [11/26/2016] [facility] 6Result Comment: [11/26/2016] [facility] 7Result Comment: [11/26/2016] [facility] 8Result Comment: [11/26/2016] [facility] 9Result Comment: [11/26/2016] [facility] 10Result Comment: [11/26/2016] [facility] 11Result Comment: [11/26/2016] [facility] 12Result Comment: [11/26/2016] [facility] 13Result Comment: [11/26/2016] [facility] 14Result Comment: [11/26/2016] [facility] 15Result Comment: [11/26/2016] [facility] 16Result Comment: [11/26/2016] [facility] 17Result Comment: [11/26/2016] [facility] 18Result Comment: [11/26/2016] [facility] 19Result Comment: [11/26/2016] [facility] 20Result Comment: [11/26/2016] [facility] 21Result Comment: [11/26/2016] [facility] 22Result Comment: [11/26/2016] [facility] 23Result Comment: [11/26/2016] [facility] 24Result Comment: [11/26/2016] [facility] 25Result Comment: [11/26/2016] [facility] 26Result Comment: [11/26/2016] [facility] 27Result Comment: [11/26/2016] [facility] 28Result Comment: [11/26/2016] [facility] 29Result Comment: [11/26/2016] [facility] 30Result Comment: [11/26/2016] [facility] 31Result Comment: [11/26/2016] [facility] 32Result Comment: [11/26/2016] [facility] 33Result Comment: [11/26/2016] [facility] 34Result Comment: [11/26/2016] [facility] 35Result Comment: [11/26/2016] [facility] Medications Budesonide 1 mg, 1mg/2ml, Refills [...] Team Personnel Name: Margaux Vivas RN Position: [facility] RN Member Role: Primary Care Nurse Name: Live Leyva MD Position: [facility] Physician -Physician Practices Member Role: Lifetime Consulting Physician Name: Jeanmarie Lopez MD Position: [facility] Renal MD Member Role: Lifetime Consulting Physician Address: Address: [address] [place] [address], [address] [facility] [place] [address]- Name: Lashonda Clifford Position: [facility] Outreach Member Role: Lifetime Consulting Physician Name: Isaiah Angeles MD Position: [facility] Physician - Primary Care Member Role: PCP Address: Address: [address] [place] [address] Name: Annalise Lara RN Position: S RN Member Role: Primary Care Nurse Name: Mark Wilkes MD Position: S Renal MD Member Role: Lifetime Consulting Physician Address: Address: [address] [place] [address] [facility] [address] Name: Bibiana Treviño RN Position: S RN Member Role: Primary Care Nurse Care Team Related Persons Name: CLAUDETTE MILLERE Address: [place] [phone] Name: MIRA MILLER Address: [place] [phone] Name: ANGELA MIRA Address: [place] [phone] Name: ANGELA MIRA Address: [place] [phone] Name: MIRA MILLER Address: [place] [id number] Name: ANGELAMIRA Address: [place] [phone] Name: ANGELA MIRA Address: [place] [phone] Name: PRATEEK MILLER Address: [address] [address] Name: BELEN MILLER Address: [address] [address] Name: BELEN MILLER Address: [address] [address]
--- OUTSIDE RECORDS SUMMARY | 2024-05-20 07:40 | XMS_ITS | Continuity of Care Document ---
Author Organization [facility] Ethan lt Address [address] [place] [address]- Care Team Providers Care Safety Attendant Name Role Phone Karthik HENLEY, Isaiah [place] Primary Care Physician [place] [facility] [place] 08/18/20 [facility] Adult [address] [place] [address]- Allergies, Adverse Reactions, Alerts Substance Reaction Severity [...] 1Result Comment: [facility]-[id number] 2Location History: [facility] [place] 3Result Comment: [11/26/2016] [facility] 4Result Comment: [11/26/2016] [facility] 5Result Comment: [11/26/2016] [facility] 6Result Comment: [11/26/2016] [facility] 7Result Comment: [11/26/2016] [facility] 8Result Comment: [11/26/2016] [facility] 9Result Comment: [11/26/2016] [facility] 10Result Comment: [11/26/2016] [facility] 11Result Comment: [11/26/2016] [facility] 12Result Comment: [11/26/2016] [facility] 13Result Comment: [11/26/2016] [facility] 14Result Comment: [11/26/2016] [facility] 15Result Comment: [11/26/2016] [facility] 16Result Comment: [11/26/2016] [facility] 17Result Comment: [11/26/2016] [facility] 18Result Comment: [11/26/2016] [facility] 19Result Comment: [11/26/2016] [facility] 20Result Comment: [11/26/2016] [facility] 21Result Comment: [11/26/2016] [facility] 22Result Comment: [11/26/2016] [facility] 23Result Comment: [11/26/2016] [facility] 24Result Comment: [11/26/2016] [facility] 25Result Comment: [11/26/2016] [facility] 26Result Comment: [11/26/2016] [facility] 27Result Comment: [11/26/2016] [facility] 28Result Comment: [11/26/2016] [facility] 29Result Comment: [11/26/2016] [facility] 30Result Comment: [11/26/2016] [facility] 31Result Comment: [11/26/2016] [facility] 32Result Comment: [11/26/2016] [facility] 33Result Comment: [11/26/2016] [facility] Medications carvedilol 12.5 mg oral tablet [...]
--- OUTSIDE RECORDS SUMMARY | 2024-05-20 07:40 | XMS_ITS | Continuity of Care Document ---
Author Organization [facility] Address [address] [place] [address]- Care Team Providers Care Garbage Truck Helper Name Role Phone Karthik HENLEY, Isaiah [place] Primary Care Physician [place] [facility] [place] Date(s): 03/27/21 - 04/26/21 [facility] [address] [place] [address]- Allergies, Adverse Reactions, Alerts Substance Reaction Severity [...] [facility]-[id number] 2Location History[facility] 3Result Comment: [11/26/2016] [facility] 4Result Comment: [11/26/2016] [facility] 5Result Comment: [11/26/2016] [facility] 6Result Comment: [11/26/2016] [facility] 7Result Comment: [11/26/2016] [facility] 8Result Comment: [11/26/2016] [facility] 9Result Comment: [11/26/2016] [facility] 10Result Comment: [11/26/2016] [facility] 11Result Comment: [11/26/2016] [facility] 12Result Comment: [11/26/2016] [facility] 13Result Comment: [11/26/2016] [facility] 14Result Comment: [11/26/2016] [facility] 15Result Comment: [11/26/2016] [facility] 16Result Comment: [11/26/2016] [facility] 17Result Comment: [11/26/2016] [facility] 18Result Comment: [11/26/2016] [facility] 19Result Comment: [11/26/2016] [facility] 20Result Comment: [11/26/2016] [facility] 21Result Comment: [11/26/2016] [facility] 22Result Comment: [11/26/2016] [facility] 23Result Comment: [11/26/2016] [facility] 24Result Comment: [11/26/2016] [facility] 25Result Comment: [11/26/2016] [facility] 26Result Comment: [11/26/2016] [facility] 27Result Comment: [11/26/2016] [facility] 28Result Comment: [11/26/2016] [facility] 29Result Comment: [11/26/2016] [facility] 30Result Comment: [11/26/2016] [facility] 31Result Comment: [11/26/2016] [facility] 32Result Comment: [11/26/2016] [facility] 33Result Comment: [11/26/2016] [facility] Medications levothyroxine 125 mcg (0.125 mg) [...]
--- OUTSIDE RECORDS SUMMARY | 2024-05-20 07:40 | XMS_ITS | Continuity of Care Document ---
Author Organization [facility] Address [address] [place] [address]- Care Team Providers Care Clerk Specialist Name Role Phone Karthik HENLEY, Isaiah [place] Primary Care Physician [place] [facility] [place] 12/12/23 - 01/11/24 [facility] [address] [place] [id number] Allergies, Adverse Reactions, Alerts Substance Reaction [...] corded tetanus-diphtheria toxoids (Td) 10 08/15/22 Given [id number] bivalent booster vax 07/05/22 Recorded SARS-CoV-2 (COVID-19) [...] Comment: [facility] [place] 2Result Comment: [facility]-[id number] 3Location History: [facility] [place] 4Result Comment: [11/26/2016] [facility] 5Result Comment: [11/26/2016] [facility] 6Result Comment: [11/26/2016] [facility] 7Result Comment: [11/26/2016] [facility] 8Result Comment: [11/26/2016] [facility] 9Result Comment: [11/26/2016] [facility] 10Result Comment: [id number] 11Result Comment: [11/26/2016] [facility] 12Result Comment: [11/26/2016] [facility] 13Result Comment: [11/26/2016] [facility] 14Result Comment: [11/26/2016] [facility] 15Result Comment: [11/26/2016] [facility] 16Result Comment: [11/26/2016] [facility] 17Result Comment: [11/26/2016] [facility] 18Result Comment: [11/26/2016] [facility] 19Result Comment: [11/26/2016] [facility] 20Result Comment: [11/26/2016] [facility] 21Result Comment: [11/26/2016] [facility] 22Result Comment: [11/26/2016] [facility] 23Result Comment: [11/26/2016] [facility] 24Result Comment: [11/26/2016] [facility] 25Result Comment: [11/26/2016] [facility] 26Result Comment: [11/26/2016] [facility] 27Result Comment: [11/26/2016] [facility] 28Result Comment: [11/26/2016] [facility] 29Result Comment: [11/26/2016] [facility] 30Result Comment: [11/26/2016] [facility] 31Result Comment: [11/26/2016] [facility] 32Result Comment: [11/26/2016] [facility] 33Result Comment: [11/26/2016] [facility] 34Result Comment: [11/26/2016] [facility] 35Result Comment: [11/26/2016] [facility] Medications [...] Team Personnel Name: Live Leyva MD Position: [facility] Physician -Physician Practices Member Role: Lifetime Consulting Physician Name: Jeanmarie Lopez MD Position: [facility] Renal MD Member Role: Lifetime Consulting Physician Address: Address: [address] [place] [address] [address] [place] [address]- Name: Lashonda Clifford Position: [facility] Outreach Member Role: Lifetime Consulting Physician Name: Tiera Wadsworth RN Position: [facility] RN Member Role: Primary Care Nurse Name: John Davila DO Position: [facility] Renal MD Member Role: Lifetime Consulting Physician Address: Address: [address] [place] [address] [address] [facility] [place] [address]- [place] Name: Karthik HENLEY, Isaiah [place] Position: [facility] Physician - Primary Care Member Role: PCP Address: Address: [address] [place] [address]- [place] Name: Annalise Lara RN Position: [facility] RN Member Role: Primary Care Nurse Name: Mark Wilkes MD Position: [facility] Renal MD Member Role: Lifetime Consulting Physician Address: Address: [address] [place] [address] [facility] [place] [address]- [place] Name: Bibiana Treviño RN Position: [facility] RN Member Role: Primary Care Nurse Care Team Related Persons Name: MIRA MILLER Address: home [address] [place] [phone] Name: MIRA MILLER Address: [place] Address: [address] [place] [address] Name: PRATEEK MILLER Address: home [address] [place] [address] Name: BELEN MILLER Address: [address] [place] [address] Name: BELEN MILLER Address: home [address] [place] [address]
--- OUTSIDE RECORDS SUMMARY | 2024-05-20 07:40 | XMS_ITS | Continuity of Care Document ---
Author Organization [facility] Address [address] [place] [address]- Care Team Providers Care Green Building Architect Name Role Phone Karthik HENLEY, Isaiah [place] Primary Care Physician [phone] [place] [facility] [place] 02/14/23 - 03/16/23 [facility] [address] [place] [address] Allergies, Adverse Reactions, Alerts Substance Reaction Severity Status codeine 1 Surgical adhesive ta pe itching Active Adhesive Bandage 2 Rash Active riTUXimab 3 Severe Active 1hives 2surgical tape allergy as per family 3developed anaphylaxis with throat closure sensation and facial swelling needed brief epinephrine drip Immunizations Given and Recorded Vaccine Date Status Refusal Reason tetanus-diphtheria toxoids (Td) 1 08/15/22 Given [id number] bivalent booster vax 07/05/22 Recorded influenza virus [...] Given Parent Or Guardian Refuses 1Result Comment: [id number] 2Result Comment: [facility] [place] 3Result Comment: [facility]-[id number] 4Location History: [facility] [place] 5Result Comment: [11/26/2016] [facility] 6Result Comment: [11/26/2016] [facility] 7Result Comment: [11/26/2016] [facility] 8Result Comment: [11/26/2016] [facility] 9Result Comment: [11/26/2016] [facility] 10Result Comment: [11/26/2016] [facility] 11Result Comment: [11/26/2016] [facility] 12Result Comment: [11/26/2016] [facility] 13Result Comment: [11/26/2016] [facility] 14Result Comment: [11/26/2016] [facility] 15Result Comment: [11/26/2016] [facility] 16Result Comment: [11/26/2016] [facility] 17Result Comment: [11/26/2016] [facility] 18Result Comment: [11/26/2016] [facility] 19Result Comment: [11/26/2016] [facility] 20Result Comment: [11/26/2016] [facility] 21Result Comment: [11/26/2016] [facility] 22Result Comment: [11/26/2016] [facility] 23Result Comment: [11/26/2016] [facility] 24Result Comment: [11/26/2016] [facility] 25Result Comment: [11/26/2016] [facility] 26Result Comment: [11/26/2016] [facility] 27Result Comment: [11/26/2016] [facility] 28Result Comment: [11/26/2016] [facility] 29Result Comment: [11/26/2016] [facility] 30Result Comment: [11/26/2016] [facility] 31Result Comment: [11/26/2016] [facility] 32Result Comment: [11/26/2016] [facility] 33Result Comment: [11/26/2016] [facility] 34Result Comment: [11/26/2016] [facility] 35Result Comment: [11/26/2016] [facility]ations Budesonide 1 mg, 1mg/2ml, Refills [...] Personnel Name: Margaux Vivas RN Position: [facility] RN Member Role: Primary Care Nurse Name: Live Leyva MD Position: [facility] Physician -Physician Practices Member Role: Lifetime Consulting Physician Name: Jeanmarie Lopez MD Position: [facility] Renal MD Member Role: Lifetime Consulting Physician Address: Address: [address] [facility], [address] [facility] [place] [address]- Name: Lashonda [place] Position: [facility] Outreach Member Role: Lifetime Consulting Physician Name: Isaiah [place] MD Position: [facility] Physician - Primary Care Member Role: PCP Address: Address: [address] [place] [address]- Name: Annalise Lara RN Position: [facility] RN Member Role: Primary Care Nurse Name: Mark Wilkes MD Position: [facility] Renal MD Member Role: Lifetime Consulting Physician Address: Address: [address] [facility] [place] [address]- Name: Bibiana Treviño RN Position: [facility] RN Member Role: Primary Care Nurse Care Team Related Persons Name: CLAUDETTE MILLERE Address: [place] [phone] Name: MIRA MILLER Address: [address] [phone] Name: AKASHMIRA CARTY Address: [address] [phone] Name: AKASHMIRA CARTY Address: [address] [phone] Name: MIRA MILLER Address: [address] [phone] Name: MIRA MILLER Address: [address] [phone] Name: MIRA MILLER Address: [address] [phone] Name: PRATEEK MILLER Address: [address] [address] Name: BELEN MILLER Address: home [address] [place] [address] Name: BELEN MILLER Address: [address] [address]
--- OUTSIDE RECORDS SUMMARY | 2024-05-20 07:40 | XMS_ITS | Continuity of Care Document ---
Author Organization [facility] Address [address] [place] [address]- Care Team Providers Care Technical Training Instructor Name Role Phone Karthik HENLEY, Isaiah [place] Primary Care Physician [phone] Encounter [facility] Date(s): 08/20/19 - 09/20/19 [facility] [address] [place] [address] Attending Physician: Ama Gilman MD Admitting Physician: [...] 1Result Comment: [facility]-[id number] 2Location History: [facility] [place] 3Result Comment: [11/26/2016] [facility] 4Result Comment: [11/26/2016] [facility] 5Result Comment: [11/26/2016] [facility] 6Result Comment: [11/26/2016] [facility] 7Result Comment: [11/26/2016] [facility] 8Result Comment: [11/26/2016] [facility] 9Result Comment: [11/26/2016] [facility] 10Result Comment: [11/26/2016] [facility] 11Result Comment: [11/26/2016] [facility] 12Result Comment: [11/26/2016] [facility] 13Result Comment: [11/26/2016] [facility] 14Result Comment: [11/26/2016] [facility] 15Result Comment: [11/26/2016] [facility] 16Result Comment: [11/26/2016] [facility] 17Result Comment: [11/26/2016] [facility] 18Result Comment: [11/26/2016] [facility] 19Result Comment: [11/26/2016] [facility] 20Result Comment: [11/26/2016] [facility] 21Result Comment: [11/26/2016] [facility] 22Result Comment: [11/26/2016] [facility] 23Result Comment: [11/26/2016] [facility] 24Result Comment: [11/26/2016] [facility] 25Result Comment: [11/26/2016] [facility] 26Result Comment: [11/26/2016] [facility] 27Result Comment: [11/26/2016] [facility] 28Result Comment: [11/26/2016] [facility] 29Result Comment: [11/26/2016] [facility] 30Result Comment: [11/26/2016] [facility] 31Result Comment: [11/26/2016] [facility] 32Result Comment: [11/26/2016] [facility] 33Result Comment: [11/26/2016] [facility] Medications ferrous sulfate 325 mg oral [...]
--- OUTSIDE RECORDS SUMMARY | 2024-05-20 07:40 | XMS_ITS | Continuity of Care Document ---
Author Organization [facility] Ethan lt Address [address] [place] [address]- Care Team Providers Care Computer Technology Trainer Name Role Phone Karthik HENLEY, Isaiah [place] Primary Care Physician [place] [facility] [place] 02/01/22 - 03/03/22 [facility] Adult [address] [place] [address]- Allergies, Adverse Reactions, Alerts Substance Reaction Severity [...] 1Result Comment: [id number] 2Location History: [facility] [place] 3Result Comment: [11/26/2016] [facility] 4Result Comment: [11/26/2016] [facility] 5Result Comment: [11/26/2016] [facility] 6Result Comment: [11/26/2016] [facility] 7Result Comment: [11/26/2016] [facility] 8Result Comment: [11/26/2016] [facility] 9Result Comment: [11/26/2016] [facility] 10Result Comment: [11/26/2016] [facility] 11Result Comment: [11/26/2016] [facility] 12Result Comment: [11/26/2016] [facility] 13Result Comment: [11/26/2016] [facility] 14Result Comment: [11/26/2016] [facility] 15Result Comment: [11/26/2016] [facility] 16Result Comment: [11/26/2016] [facility] 17Result Comment: [11/26/2016] [facility] 18Result Comment: [11/26/2016] [facility] 19Result Comment: [11/26/2016] [facility] 20Result Comment: [11/26/2016] [facility] 21Result Comment: [11/26/2016] [facility] 22Result Comment: [11/26/2016] [facility] 23Result Comment: [11/26/2016] [facility] 24Result Comment: [11/26/2016] [facility] 25Result Comment: [11/26/2016] [facility] 26Result Comment: [11/26/2016] [facility] 27Result Comment: [11/26/2016] [facility] 28Result Comment: [11/26/2016] [facility] 29Result Comment: [11/26/2016] [facility] 30Result Comment: [11/26/2016] [facility] 31Result Comment: [11/26/2016] [facility] 32Result Comment: [11/26/2016] [facility] 33Result Comment: [11/26/2016] [facility]ations calcium (as carbonate) 500 mg [...]
--- OUTSIDE RECORDS SUMMARY | 2024-05-20 07:40 | XMS_ITS | Continuity of Care Document ---
Author Organization [facility] Ethan lt Address [address] [place] [address]- Care Team Providers Care Fashion Director Name Role Phone Karthik HENLEY, Isaiah Douglas Primary Care Physician Encounter [facility] Date(s): 01/15/23 - 02/14/23 [facility] Adult [address] [place] [address]- Allergies, Adverse Reactions, Alerts Substance Reaction Severity Status codeine 1 Surgical adhesive ta pe itching Active Adhesive Bandage 2 Rash Active riTUXimab 3 Severe Active 1hives 2surgical tape allergy as per family 3developed anaphylaxis with throat closure sensation and facial swelling needed brief epinephrine drip Immunizations Given and Recorded Vaccine Date Status Refusal Reason tetanus-diphtheria toxoids (Td) 1 08/15/22 Given [id number] bivalent booster vax 07/05/22 Recorded influenza virus [...] Given Parent Or Guardian Refuses 1Result Comment: [id number] 2Result Comment: [facility] [place] 3Result Comment: [facility]-[id number] 4Location History: [facility] [place] 5Result Comment: [11/26/2016] [facility] 6Result Comment: [11/26/2016] [facility] 7Result Comment: [11/26/2016] [facility] 8Result Comment: [11/26/2016] [facility] 9Result Comment: [11/26/2016] [facility] 10Result Comment: [11/26/2016] [facility] 11Result Comment: [11/26/2016] [facility] 12Result Comment: [11/26/2016] [facility] 13Result Comment: [11/26/2016] [facility] 14Result Comment: [11/26/2016] [facility] 15Result Comment: [11/26/2016] [facility] 16Result Comment: [11/26/2016] [facility] 17Result Comment: [11/26/2016] [facility] 18Result Comment: [11/26/2016] [facility] 19Result Comment: [11/26/2016] [facility] 20Result Comment: [11/26/2016] [facility] 21Result Comment: [11/26/2016] [facility] 22Result Comment: [11/26/2016] [facility] 23Result Comment: [11/26/2016] [facility] 24Result Comment: [11/26/2016] [facility] 25Result Comment: [11/26/2016] [facility] 26Result Comment: [11/26/2016] [facility] 27Result Comment: [11/26/2016] [facility] 28Result Comment: [11/26/2016] [facility] 29Result Comment: [11/26/2016] [facility] 30Result Comment: [11/26/2016] [facility] 31Result Comment: [11/26/2016] [facility] 32Result Comment: [11/26/2016] [facility] 33Result Comment: [11/26/2016] [facility] 34Result Comment: [11/26/2016] [facility] 35Result Comment: [11/26/2016] [facility] Medications Budesonide 1 mg, 1mg/2ml, Refills [...] Team Personnel Name: Margaux Vivas RN Position: [facility] RN Member Role: Primary Care Nurse Name: Live Leyva MD Position: [facility] Physician -Physician Practices Member Role: Lifetime Consulting Physician Name: Jeanmarie Lopez MD Position: [facility] Renal MD Member Role: Lifetime Consulting Physician Address: Address: [address] [place] [address], [address] [facility] [place] [address]- Name: Lashonda Clifford Position: [facility] Outreach Member Role: Lifetime Consulting Physician Name: Isaiah Angeles MD Position: [facility] Physician - Primary Care Member Role: PCP Address: Address: [address] [place] [address]- Name: Annalise Lara RN Position: S RN Member Role: Primary Care Nurse Name: Mark Wilkes MD Position: S Renal MD Member Role: Lifetime Consulting Physician Address: Address: [address] [place] [address] [facility] [address] Name: Bibiana Treviño RN Position: S RN Member Role: Primary Care Nurse Care Team Related Persons Name: MIRA MILLER Address: [place] [phone] Name: MIRA MILLER Address: [place] [phone] Name: MIRA MILLER Address: [place] [phone] Name: MIRA MILLER Address: [place] [phone] Name: MIRA MILLER Address: [place] [phone] Name: ANGELA MIRA Address: [place] [phone] Name: MIRA MILLER Address: [place] [phone] Name: PRATEEK MILLER Address: [address] [address] Name: BELEN MILLER Address: [address] [address] Name: BELEN MILLER Address: [address] [address]
--- OUTSIDE RECORDS SUMMARY | 2024-05-20 07:40 | XMS_ITS | Continuity of Care Document ---
Author Organization [facility] Address [address] [place] [address]- Care Team Providers Care Outside Salesman Name Role Phone Karthik HENLEY, Isaiah Douglas Primary Care Physician Encounter [facility] Date(s): 05/29/23 - 06/28/23 [facility] [address] [place] [address]- Attending Physician: Segundo Martinez Admitting Physician: Segundo [...] corded tetanus-diphtheria toxoids (Td) 10 08/15/22 Given [id number] bivalent booster vax 07/05/22 Recorded SARS-CoV-2 (COVID-19) [...] Comment: [facility] [place] 2Result Comment: [id number] 3Location History: [facility] [place] 4Result Comment: [11/26/2016] [facility] 5Result Comment: [11/26/2016] [facility] 6Result Comment: [11/26/2016] [facility] 7Result Comment: [11/26/2016] [facility] 8Result Comment: [11/26/2016] [facility] 9Result Comment: [11/26/2016] [facility] 10Result Comment: [id number] 11Result Comment: [11/26/2016] [facility] 12Result Comment: [11/26/2016] [facility] 13Result Comment: [11/26/2016] [facility] 14Result Comment: [11/26/2016] [facility] 15Result Comment: [11/26/2016] [facility] 16Result Comment: [11/26/2016] [facility] 17Result Comment: [11/26/2016] [facility] 18Result Comment: [11/26/2016] [facility] 19Result Comment: [11/26/2016] [facility] 20Result Comment: [11/26/2016] [facility] 21Result Comment: [11/26/2016] [facility] 22Result Comment: [11/26/2016] [facility] 23Result Comment: [11/26/2016] [facility] 24Result Comment: [11/26/2016] [facility] 25Result Comment: [11/26/2016] [facility] 26Result Comment: [11/26/2016] [facility] 27Result Comment: [11/26/2016] [facility] 28Result Comment: [11/26/2016] [facility] 29Result Comment: [11/26/2016] [facility] 30Result Comment: [11/26/2016] [facility] 31Result Comment: [11/26/2016] [facility] 32Result Comment: [11/26/2016] [facility] 33Result Comment: [11/26/2016] [facility] 34Result Comment: [11/26/2016] [facility] 35Result Comment: [11/26/2016] [facility] Medications Flovent 110 mcg Inhaler HFA [...] Refills, Maintenance, 05/02/23 12:03:00 EDT, [facility], Partial fill upon patient request [...] Team Personnel Name: Margaux Vivas RN Position: [facility] RN Member Role: Primary Care Nurse Name: Live Leyva MD Position: [facility] Physician -Physician Practices Member Role: Lifetime Consulting Physician Name: Jeanmarie Lopez MD Position: [facility] Renal MD Member Role: Lifetime Consulting Physician Address: Address: [address] [place] [address] [address] [place] [address]- Name: Lashonda Clifford Position: [facility] Outreach Member Role: Lifetime Consulting Physician Name: Tiera Wadsworth RN Position: [facility] RN Member Role: Primary Care Nurse Name: Karthik HENLEY, Isaiah Douglas Position: [facility] Physician - Primary Care Member Role: PCP Address: Address: [address] [place] [address]- [place] Name: Annalise Lara RN Position: [facility] RN Member Role: Primary Care Nurse Name: Mark Wilkes MD Position: [facility] Renal MD Member Role: Lifetime Consulting Physician Address: Address: [address] [place] [address] [facility] [place] [address]- Name: Bibiana Treviño RN Position: [facility] RN Member Role: Primary Care Nurse Care Team Related Persons Name: MIRA MILLER Address: home [address] [place] [phone] Name: MIRA MILLER Address: [place] Address: home [address] [place] [address] Name: PRATEEK MILLER Address: home [address] [place] [address] Name: BELEN MILLER Address: home [address] [place] [address] Name: BELEN MILLER Address: home [address] [place] [address]
--- OUTSIDE RECORDS SUMMARY | 2024-05-20 07:40 | XMS_ITS | Continuity of Care Document ---
Author Organization [facility] Address [address] [place] [address]- Care Team Providers Care Extension Service Specialist In Charge Name Role Phone Karthik HENLEY, Isaiah Douglas Primary Care Physician [phone] Encounter [facility] Date(s): 03/28/21 - 04/27/21 [facility] [address] [place] [address]- Allergies, Adverse Reactions, Alerts Substance Reaction Severity [...] Guardian Refuses 1Result Comment: [id number] 2Location History: [facility] [place] 3Result Comment: [11/26/2016] [facility] 4Result Comment: [11/26/2016] [facility] 5Result Comment: [11/26/2016] [facility] 6Result Comment: [11/26/2016] [facility] 7Result Comment: [11/26/2016] [facility] 8Result Comment: [11/26/2016] [facility] 9Result Comment: [11/26/2016] [facility] 10Result Comment: [11/26/2016] [facility] 11Result Comment: [11/26/2016] [facility] 12Result Comment: [...] [facility] 33Result Comment: [11/26/2016] [facility] Medications levothyroxine 125 mcg (0.125 mg) [...]
--- OUTSIDE RECORDS SUMMARY | 2024-05-20 07:40 | XMS_ITS | Continuity of Care Document ---
Author Organization [facility] Address [address] [place] [address]- Care Team Providers Care Can Carrier Name Role Phone Karthik HENLEY, Isaiah Douglas Primary Care Physician Encounter [facility] Date(s): 05/06/20 - 06/05/20 [facility] [address] [place] [address]- [facility] Allergies, Adverse Reactions, Alerts Substance [...] Guardian Refuses 1Result Comment: [facility]-[id number] 2Location History: [facility] [place] 3Result Comment: [11/26/2016] [facility] 4Result Comment: [11/26/2016] [facility] 5Result Comment: [11/26/2016] [facility] 6Result Comment: [11/26/2016] [facility] 7Result Comment: [11/26/2016] [facility] 8Result Comment: [11/26/2016] [facility] 9Result Comment: [11/26/2016] [facility] 10Result Comment: [11/26/2016] [facility] 11Result Comment: [11/26/2016] [facility] 12Result Comment: [11/26/2016] [facility] 13Result Comment: [11/26/2016] [facility] 14Result Comment: [11/26/2016] [facility] 15Result Comment: [11/26/2016] [facility] 16Result Comment: [11/26/2016] [facility] 17Result Comment: [11/26/2016] [facility] 18Result Comment: [11/26/2016] [facility] 19Result Comment: [11/26/2016] [facility] 20Result Comment: [11/26/2016] [facility] 21Result Comment: [11/26/2016] [facility] 22Result Comment: [11/26/2016] [facility] 23Result Comment: [11/26/2016] [facility] 24Result Comment: [11/26/2016] [facility] 25Result Comment: [11/26/2016] [facility] 26Result Comment: [11/26/2016] [facility] 27Result Comment: [11/26/2016] [facility] 28Result Comment: [11/26/2016] [facility] 29Result Comment: [11/26/2016] [facility] 30Result Comment: [11/26/2016] [facility] 31Result Comment: [11/26/2016] [facility] 32Result Comment: [11/26/2016] [facility] 33Result Comment: [11/26/2016] [facility] Medications Flovent HFA 110 mcg/inh inhalation [...] 4 Refills, Maintenance, 02/26/20 12:05:00 EDT, Tablet, [facility], 153, cm, 02/26/20 12:03:00 EDT, Height, 62, kg, 01/02/20 11:03:00 EDT, Dry Weight Start Date: 02/26/20 Status: Ordered lisinopril 20 mg oral tablet 20 mg, 1, tablet, By Mouth, Daily, # 30 tablet, Refills 0, Tot. Refills 0, Maintenance, 05/05/20 7:46:00 EDT, Route to Pharmacy Electronically, [facility], 153, cm, 05/05/20 7:32:00 EDT, [...]
--- OUTSIDE RECORDS SUMMARY | 2024-05-20 07:40 | XMS_ITS | Continuity of Care Document ---
Author Organization [facility] Ethan lt Address [address] [place] [address]- Care Team Providers Care Packer Dried Beef Name Role Phone Karthik HENLEY, Isaiah Douglas Primary Care Physician [place] [facility] 09[place]13[place]21 - 10/13/21 [facility] Adult [address] [place] [address]- Allergies, Adverse Reactions, Alerts Substance Reaction Severity [...] Given Parent Or Guardian Refuses 1Result Comment: [facility]-[id number] 2Location History: [facility] [place] 3Result Comment: [11/26/2016] [facility] 4Result Comment: [11/26/2016] [facility] 5Result Comment: [11/26/2016] [facility] 6Result Comment: [11/26/2016] [facility] 7Result Comment: [11/26/2016] [facility] 8Result Comment: [11/26/2016] [facility] 9Result Comment: [11/26/2016] [facility] 10Result Comment: [11/26/2016] [facility] 11Result Comment: [11/26/2016] [facility] 12Result Comment: [11/26/2016] [facility] 13Result Comment: [11/26/2016] [facility] 14Result Comment: [11/26/2016] [facility] 15Result Comment: [11/26/2016] [facility] 16Result Comment: [11/26/2016] [facility] 17Result Comment: [11/26/2016] [facility] 18Result Comment: [11/26/2016] [facility] 19Result Comment: [11/26/2016] [facility] 20Result Comment: [11/26/2016] [facility] 21Result Comment: [11/26/2016] [facility] 22Result Comment: [11/26/2016] [facility] 23Result Comment: [11/26/2016] [facility] 24Result Comment: [11/26/2016] [facility] 25Result Comment: [11/26/2016] [facility] 26Result Comment: [11/26/2016] [facility] 27Result Comment: [11/26/2016] [facility] 28Result Comment: [11/26/2016] [facility] 29Result Comment: [11/26/2016] [facility] 30Result Comment: [11/26/2016] [facility] 31Result Comment: [11/26/2016] [facility] 32Result Comment: [11/26/2016] [facility] 33Result Comment: [11/26/2016] [facility] Medications lidocaine 4% topical film 1 [...]
--- OUTSIDE RECORDS SUMMARY | 2024-05-20 07:40 | XMS_ITS | Continuity of Care Document ---
Author Organization [facility] Ethan lt Address [address] [place] [address]- Care Team Providers Care Fingernail Former Name Role Phone Karthik HENLEY, Isaiah Douglas Primary Care Physician Encounter [facility] Date(s): 03/06/23 - 04/05/23 [facility] Adult [address] [place] [address]- Allergies, Adverse Reactions, Alerts Substance Reaction Severity Status codeine 1 Surgical adhesive ta pe itching Active riTUXimab 2 Severe Active Adhesive Bandage 3 Rash Active 1hives 2developed anaphylaxis with throat closure sensation and facial swelling needed brief epinephrine drip 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 4Location History: [facility] [place] 5Result Comment: [11/26/2016] [facility] 6Result Comment: [11/26/2016] [facility] 7Result Comment: [11/26/2016] [facility] 8Result Comment: [11/26/2016] [facility] 9Result Comment: [11/26/2016] [facility] 10Result Comment: [11/26/2016] [facility] 11Result Comment: [11/26/2016] [facility] 12Result Comment: [11/26/2016] [facility] 13Result Comment: [11/26/2016] [facility] 14Result Comment: [11/26/2016] [facility] 15Result Comment: [11/26/2016] [facility] 16Result Comment: [11/26/2016] [facility] 17Result Comment: [11/26/2016] [facility] 18Result Comment: [11/26/2016] [facility] 19Result Comment: [11/26/2016] [facility] 20Result Comment: [11/26/2016] [facility] 21Result Comment: [11/26/2016] [facility] 22Result Comment: [11/26/2016] [facility] 23Result Comment: [11/26/2016] [facility] 24Result Comment: [11/26/2016] [facility] 25Result Comment: [11/26/2016] [facility] 26Result Comment: [11/26/2016] [facility] 27Result Comment: [11/26/2016] [facility] 28Result Comment: [11/26/2016] [facility] 29Result Comment: [11/26/2016] [facility] 30Result Comment: [11/26/2016] [facility] 31Result Comment: [11/26/2016] [facility] 32Result Comment: [11/26/2016] [facility] 33Result Comment: [11/26/2016] [facility] 34Result Comment: [11/26/2016] [facility] 35Result Comment: [11/26/2016] [facility] Medications Budesonide 1 mg, 1mg/2ml, Refills [...] Role: Lifetime Consulting Physician Address: Address: [address] [place] [address], [address] [facility] [place] [address]- Name: Lashonda Clifford Position: [facility] Outreach Member Role: Lifetime Consulting Physician Name: Isaiah Angeles MD Position: [facility] Physician - Primary Care Member Role: PCP Address: Address: [address] [place] [id number]- [place] Name: Annalise Lara RN Position: [facility] RN Member Role: Primary Care Nurse Name: Mark Wilkes MD Position: [facility] Renal MD Member Role: Lifetime Consulting Physician Address: Address: [address] [facility] [place] [address]- Name: Bibiana Treviño RN Position: [facility] RN Member Role: Primary Care Nurse Care Team Related Persons Name: MIRA MILLER Address: [place] Address: [address] [place] [address] [place] Name: MIRA MILLER Address: [address] [place] [phone] Name: PRATEEK MILLER Address: [address] [place] [address] Name: BELEN MILLER Address: [address] [place] [address] Name: BELEN MILLER Address: [address] [place] [address]
--- OUTSIDE RECORDS SUMMARY | 2024-05-20 07:41 | XMS_ITS | Continuity of Care Document ---
Author Organization [facility] Ethan lt Address [address] [place] [address]- Care Team Providers Care Dynamotor Repairer Name Role Phone Karthik HENLEY, Isaiah Douglas Primary Care Physician [place] [facility] - 11/08/21 [facility] Adult [address] [place] [address]- Allergies, Adverse Reactions, Alerts Substance Reaction Severity [...] [facility]-[id number] 2Location History: [facility] [place] 3Result Comment: [11/26/2016] [facility] 4Result Comment: [11/26/2016] [facility] 5Result Comment: [11/26/2016] [facility] 6Result Comment: [11/26/2016] [facility] 7Result Comment: [11/26/2016] [facility] 8Result Comment: [11/26/2016] [facility] 9Result Comment: [11/26/2016] [facility] 10Result Comment: [11/26/2016] [facility] 11Result Comment: [11/26/2016] [facility] 12Result Comment: [11/26/2016] [facility] 13Result Comment: [11/26/2016] [facility] 14Result Comment: [11/26/2016] [facility] 15Result Comment: [11/26/2016] [facility] 16Result Comment: [11/26/2016] [facility] 17Result Comment: [11/26/2016] [facility] 18Result Comment: [11/26/2016] [facility] 19Result Comment: [11/26/2016] [facility] 20Result Comment: [11/26/2016] [facility] 21Result Comment: [11/26/2016] [facility] 22Result Comment: [11/26/2016] [facility] 23Result Comment: [11/26/2016] [facility] 24Result Comment: [11/26/2016] [facility] 25Result Comment: [11/26/2016] [facility] 26Result Comment: [11/26/2016] [facility] 27Result Comment: [11/26/2016] [facility] 28Result Comment: [11/26/2016] [facility] 29Result Comment: [11/26/2016] [facility] 30Result Comment: [11/26/2016] [facility] 31Result Comment: [11/26/2016] [facility] 32Result Comment: [11/26/2016] [facility] 33Result Comment: [11/26/2016] [facility] Medications lidocaine 4% topical film 1 [...]
--- OUTSIDE RECORDS SUMMARY | 2024-05-20 07:41 | XMS_ITS | Continuity of Care Document ---
Author Organization [facility] Ethan lt Address [address] [place] [address]- Care Team Providers Care Bed Spring Maker Name Role Phone Karthik HENLEY, Isaiah Douglas Primary Care Physician Encounter [facility] Date(s): 03/14/21 - 04/13/21 [facility] [address] [place] [address]- Allergies, Adverse Reactions, Alerts Substance Reaction Severity [...] Given Parent Or Guardian Refuses [id number] 3Result Comment: [11/26/2016] [facility] 4Result Comment: [11/26/2016] [facility] 5Result Comment: [11/26/2016] [facility] 6Result Comment: [11/26/2016] [facility] 7Result Comment: [11/26/2016] [facility] 8Result Comment: [11/26/2016] [facility] 9Result Comment: [11/26/2016] [facility] 10Result Comment: [11/26/2016] [facility] 11Result Comment: [11/26/2016] [facility] 12Result Comment: [11/26/2016] [facility] 13Result Comment: [11/26/2016] [facility] 14Result Comment: [11/26/2016] [facility] 15Result Comment: [11/26/2016] [facility] 16Result Comment: [11/26/2016] [facility] 17Result Comment: [11/26/2016] [facility] 18Result Comment: [11/26/2016] [facility] 19Result Comment: [11/26/2016] [facility] 20Result Comment: [11/26/2016] [facility] 21Result Comment: [11/26/2016] [facility] 22Result Comment: [11/26/2016] [facility] 23Result Comment: [11/26/2016] [facility] 24Result Comment: [11/26/2016] [facility] 25Result Comment: [11/26/2016] [facility] 26Result Comment: [11/26/2016] [facility] 27Result Comment: [11/26/2016] [facility] 28Result Comment: [11/26/2016] [facility] 29Result Comment: [11/26/2016] [facility] 30Result Comment: [11/26/2016] [facility] 31Result Comment: [11/26/2016] [facility] 32Result Comment: [11/26/2016] [facility] 33Result Comment: [11/26/2016] [facility] Medications levothyroxine 125 mcg (0.125 mg) [...]
--- OUTSIDE RECORDS SUMMARY | 2024-05-20 07:41 | XMS_ITS | Continuity of Care Document ---
Author Organization [facility] Address [address] [place] [address]- Care Team Providers Care Turn Laster Name Role Phone Karthik HENLEY, Isaiah Douglas Primary Care Physician Encounter [facility] Date(s): 07/27/22 - 08/26/22 [facility] [address] [place] [address] Allergies, Adverse Reactions, Alerts Substance Reaction Severity Status codeine 1 Surgical adhesive ta pe itching Active Adhesive Bandage 2 Rash Active riTUXimab 3 Severe Active 1hives 2surgical tape allergy as per family 3developed anaphylaxis with throat closure sensation and facial swelling needed brief epinephrine drip Immunizations Given and Recorded Vaccine Date Status Refusal Reason tetanus-diphtheria toxoids (Td) 1 08/15/22 Given [id number] bivalent booster vax 07/05/22 Recorded influenza virus [...] Given Parent Or Guardian Refuses 1Result Comment: [id number] 2Result Comment: [facility] [place] 3Result Comment: [facility]-[id number] 4Location History: [facility] [place] 5Result Comment: [11/26/2016] [facility] 6Result Comment: [11/26/2016] [facility] 7Result Comment: [11/26/2016] [facility] 8Result Comment: [11/26/2016] [facility] 9Result Comment: [11/26/2016] [facility] 10Result Comment: [11/26/2016] [facility] 11Result Comment: [11/26/2016] [facility] 12Result Comment: [11/26/2016] [facility] 13Result Comment: [11/26/2016] [facility] 14Result Comment: [11/26/2016] [facility] 15Result Comment: [11/26/2016] [facility] 16Result Comment: [11/26/2016] [facility] 17Result Comment: [11/26/2016] [facility] 18Result Comment: [11/26/2016] [facility] 19Result Comment: [11/26/2016] [facility] 20Result Comment: [11/26/2016] [facility] 21Result Comment: [11/26/2016] [facility] 22Result Comment: [11/26/2016] [facility] 23Result Comment: [11/26/2016] [facility] 24Result Comment: [11/26/2016] [facility] 25Result Comment: [11/26/2016] [facility] 26Result Comment: [11/26/2016] [facility] 27Result Comment: [11/26/2016] [facility] 28Result Comment: [11/26/2016] [facility] 29Result Comment: [11/26/2016] [facility] 30Result Comment: [11/26/2016] [facility] 31Result Comment: [11/26/2016] [facility] 32Result Comment: [11/26/2016] [facility] 33Result Comment: [11/26/2016] [facility] 34Result Comment: [11/26/2016] [facility] 35Result Comment: [11/26/2016] [facility] Medications Flovent 110 mcg Inhaler HFA [...] Team Personnel Name: Margaux Vivas RN Position: [facility] RN Member Role: Primary Care Nurse Name: Live Leyva MD Position: [facility] Physician -Physician Practices Member Role: Lifetime Consulting Physician Name: Jeanmarie Lopez MD Position: [facility] Renal MD Member Role: Lifetime Consulting Physician Address: Address: [address] [place] [address], [address] [facility] [place] [place] [address] [[email or web address]] Name: Lashonda Clifford Position: [facility] Outreach Member Role: Lifetime Consulting Physician Name: Tiera Wadsworth RN Position: [facility] RN Member Role: Primary Care Nurse Name: Isaiah Angeles MD Position: [facility] Primary Care Physician Member Role: PCP Address: Address: [address] [place] [address]- Name: Annalise Lara RN Position: [facility] RN Member Role: Primary Care Nurse Name: Mark Wilkes MD Position: [facility] Renal MD Member Role: Lifetime Consulting Physician Address: Address: [address] [place] [address] [facility] [place] [address]- Name: Bibiana Treviño RN Position: S RN Member Role: Primary Care Nurse Care Team Related Persons Name: MIRA MILLER Address: [place] [phone] Name: MIRA MILLER Address: [place] [phone] Name: MIRA MILLER Address: [place] [id number] Name: MIRA MILLER Address: [place] [id number] Name: MIRA MILLER Address: [place] [phone] Name: MIRA MILLER Address: [place] [address] Name: MIRA MILLER Address: [place] [phone] Name: PRATEEK MILLER Address: [address] [address] Name: BELEN MILLER Address: [address] [address] Name: BELEN MILLER Address: [address] [address]
--- OUTSIDE RECORDS SUMMARY | 2024-05-20 07:41 | XMS_ITS | Continuity of Care Document ---
Author Organization [facility] Address [address] [place] [address]- Care Team Providers Care Manager Style Name Role Phone Karthik HENLEY, Isaiah Douglas Primary Care Physician Encounter [facility] Date(s): 12/26/21 - 01/25/22 [facility] [place] [address] [place] [address]- Allergies, Adverse Reactions, Alerts Substance Reaction Severity [...] Parent Or Guardian Refuses 1Result Comment: [id number] 2Location History: [facility] [place] 3Result Comment: [11/26/2016] [facility] 4Result Comment: [11/26/2016] [facility] 5Result Comment: [11/26/2016] [facility] 6Result Comment: [...] [facility] 33Result Comment: [11/26/2016] [facility] Medications calcium (as carbonate) 500 mg [...]
--- OUTSIDE RECORDS SUMMARY | 2024-05-20 07:41 | XMS_ITS | Continuity of Care Document ---
Author Organization [facility] Address [address] [place] [address]- Care Team Providers Care Stone Layer Name Role Phone Karthik HENLEY, Isaiah Douglas Primary Care Physician Encounter [facility] Date(s): 08/28/22 - 09/27/22 [facility] Adult [address] [place] [address]- Attending Physician: Segundo Martinez Admitting Physician: AdmSegundo [...] Reason tetanus-diphtheria toxoids (Td) 1 08/15/22 Given [id number] bivalent booster vax 07/05/22 Recorded influenza virus [...] Given Parent Or Guardian Refuses 1Result Comment: [id number] 2Result Comment: [facility] [place] 3Result Comment: [facility]-[id number] 4Location History: [facility] [place] 5Result Comment: [11/26/2016] [facility] 6Result Comment: [11/26/2016] [facility] 7Result Comment: [11/26/2016] [facility] 8Result Comment: [11/26/2016] [facility] 9Result Comment: [11/26/2016] [facility] 10Result Comment: [11/26/2016] [facility] 11Result Comment: [11/26/2016] [facility] 12Result Comment: [11/26/2016] [facility] 13Result Comment: [11/26/2016] [facility] 14Result Comment: [11/26/2016] [facility] 15Result Comment: [11/26/2016] [facility] 16Result Comment: [11/26/2016] [facility] 17Result Comment: [11/26/2016] [facility] 18Result Comment: [11/26/2016] [facility] 19Result Comment: [11/26/2016] [facility] 20Result Comment: [11/26/2016] [facility] 21Result Comment: [11/26/2016] [facility] 22Result Comment: [11/26/2016] [facility] 23Result Comment: [11/26/2016] [facility] 24Result Comment: [11/26/2016] [facility] 25Result Comment: [11/26/2016] [facility] 26Result Comment: [11/26/2016] [facility] 27Result Comment: [11/26/2016] [facility] 28Result Comment: [11/26/2016] [facility] 29Result Comment: [11/26/2016] [facility] 30Result Comment: [11/26/2016] [facility] 31Result Comment: [11/26/2016] [facility] 32Result Comment: [11/26/2016] [facility] 33Result Comment: [11/26/2016] [facility] 34Result Comment: [11/26/2016] [facility] 35Result Comment: [11/26/2016] [facility] Medications cholecalciferol 50 mcg (2000 intl [...] Team Personnel Name: Margaux Vivas RN Position: [facility] RN Member Role: Primary Care Nurse Name: Live Leyva MD Position: [facility] Physician -Physician Practices Member Role: Lifetime Consulting Physician Name: Jeanmarie Lopez MD Position: [facility] Renal MD Member Role: Lifetime Consulting Physician Address: Address: [address] [facility], [address] [facility] [place] [address]- [place] Name: Lashonda Clifford Position: [facility] Outreach Member Role: Lifetime Consulting Physician Name: Tiera Wadsworth RN Position: [facility] RN Member Role: Primary Care Nurse Name: Isaiah Angeles MD Position: [facility] Primary Care Physician Member Role: PCP Address: Address: [address] [place] [address]- [place] Name: Annalise Lara RN Position: [facility] RN Member Role: Primary Care Nurse Name: Mark Wilkes MD Position: [facility] Renal MD Member Role: Lifetime Consulting Physician Address: Address: [address] [facility] [place] [address]- [place] Name: Bibiana Treviño RN Position: [facility] RN Member Role: Primary Care Nurse Care Team Related Persons Name: MIRA MILLER Address: [place] [phone] Name: MIRA MILLER Address: [address] [phone] Name: MIRA MILLER Address: [address] [phone] Name: MIRA MILLER Address: [address] [phone] Name: MIRA MILLER Address: [address] [phone] Name: MIRA MILLER Address: [address] [phone] Name: MIRA MILLER Address: [address] [phone] Name: PRATEEK MILLER Address: [address] [address] Name: BELEN MILLER Address: [address] [address] Name: BELEN MILLER Address: home [address] [place] [address]
--- OUTSIDE RECORDS SUMMARY | 2024-05-20 07:41 | XMS_ITS | Continuity of Care Document ---
Author Organization [facility] Address [address] [place] [address]- Care Team Providers Care Band Log Mill And Carriage Operator Name Role Phone Karthik HENLEY, Isaiah Douglas Primary Care Physician [phone] Encounter [facility] Date(s): 03/08/23 - 04/07/23 [facility] [address] [place] [address]- Allergies, Adverse Reactions, Alerts Substance Reaction Severity Status codeine 1 Surgical adhesive ta pe itching Active riTUXimab 2 Severe Active Adhesive Bandage 3 Rash Active 1hives 2developed anaphylaxis with throat closure sensation and facial swelling needed brief epinephrine drip 3surgical tape allergy as per family Immunizations Given and Recorded Vaccine Date Status Refusal Reason tetanus-diphtheria toxoids (Td) 1 08/15/22 Given [id number] bivalent booster vax 07/05/22 Recorded influenza virus [...] pediatric vaccine 35 96 Recorded 1Result Comment: [id number] 2Result Comment: [facility] [place] 3Result Comment: [facility]-[id number] 4Location History: [facility] [place] 5Result Comment: [11/26/2016] [facility] 6Result Comment: [11/26/2016] [facility] 7Result Comment: [11/26/2016] [facility] 8Result Comment: [11/26/2016] [facility] 9Result Comment: [11/26/2016] [facility] 10Result Comment: [11/26/2016] [facility] 11Result Comment: [11/26/2016] [facility] 12Result Comment: [11/26/2016] [facility] 13Result Comment: [11/26/2016] [facility] 14Result Comment: [11/26/2016] [facility] 15Result Comment: [11/26/2016] [facility] 16Result Comment: [11/26/2016] [facility] 17Result Comment: [11/26/2016] [facility] 18Result Comment: [11/26/2016] [facility] 19Result Comment: [11/26/2016] [facility] 20Result Comment: [11/26/2016] [facility] 21Result Comment: [11/26/2016] [facility] 22Result Comment: [11/26/2016] [facility] 23Result Comment: [11/26/2016] [facility] 24Result Comment: [11/26/2016] [facility] 25Result Comment: [11/26/2016] [facility] 26Result Comment: [11/26/2016] [facility] 27Result Comment: [11/26/2016] [facility] 28Result Comment: [11/26/2016] [facility] 29Result Comment: [11/26/2016] [facility] 30Result Comment: [11/26/2016] [facility] 31Result Comment: [11/26/2016] [facility] 32Result Comment: [11/26/2016] [facility] 33Result Comment: [11/26/2016] [facility] 34Result Comment: [11/26/2016] [facility] 35Result Comment: [11/26/2016] [facility] Medications Budesonide 1 mg, 1mg/2ml, Refills [...] Member Role: Lifetime Consulting Physician Address: Address: [address] [place] [address], [address] [facility] [place] [address]- [place] Name: Lashonda Clifford Position: [facility] Outreach Member Role: Lifetime Consulting Physician Name: Karthik HENLEY, Isaiah Douglas Position: [facility] Physician - Primary Care Member Role: PCP Address: Address: [address] [place] [address]- [place] Name: Annalise Lara RN Position: [facility] RN Member Role: Primary Care Nurse Name: Mark Wilkes MD Position: [facility] Renal MD Member Role: Lifetime Consulting Physician Address: Address: [address] [place] [address] [facility] [place] [address]- Name: Kamila WEBB, Bibiana Position: [facility] RN Member Role: Primary Care Nurse Care Team Related Persons Name: MIRA MILLER Address: [place] Address: home [address] [place] [address] [place] Name: MIRA MILLER Address: home [address] [place] [phone] Name: PRATEEK MILLER Address: home [address] [place] [address] Name: BELEN MILLER Address: home [address] [place] [address] Name: BELEN MILLER Address: home [address] [place] [address]
--- OUTSIDE RECORDS SUMMARY | 2024-05-20 07:41 | XMS_ITS | Continuity of Care Document ---
Author Organization [facility] Address [address] [place] [address]- Care Team Providers Care Shoe Puller Name Role Phone Karthik HENLEY, Isaiah Douglas Primary Care Physician En[place] [facility] Date(s): 11/18/23 - 12/18/23 [facility] Adult [address] [place] [address]- Allergies, Adverse Reactions, Alerts Substance Reaction Severity [...] corded tetanus-diphtheria toxoids (Td) 10 08/15/22 Given [id number] bivalent booster vax 07/05/22 Recorded SARS-CoV-2 (COVID-19) [...] Comment: [facility] [place] 2Result Comment: [id number] 3Location History: [facility] [place] 4Result Comment: [11/26/2016] [facility] 5Result Comment: [11/26/2016] [facility] 6Result Comment: [11/26/2016] [facility] 7Result Comment: [11/26/2016] [facility] 8Result Comment: [11/26/2016] [facility] 9Result Comment: [11/26/2016] [facility] 10Result Comment: [id number] 11Result Comment: [11/26/2016] [facility] 12Result Comment: [11/26/2016] [facility] 13Result Comment: [11/26/2016] [facility] 14Result Comment: [11/26/2016] [facility] 15Result Comment: [11/26/2016] [facility] 16Result Comment: [11/26/2016] [facility] 17Result Comment: [11/26/2016] [facility] 18Result Comment: [11/26/2016] [facility] 19Result Comment: [11/26/2016] [facility] 20Result Comment: [11/26/2016] [facility] 21Result Comment: [11/26/2016] [facility] 22Result Comment: [11/26/2016] [facility] 23Result Comment: [11/26/2016] [facility] 24Result Comment: [11/26/2016] [facility] 25Result Comment: [11/26/2016] [facility] 26Result Comment: [11/26/2016] [facility] 27Result Comment: [11/26/2016] [facility] 28Result Comment: [11/26/2016] [facility] 29Result Comment: [11/26/2016] [facility] 30Result Comment: [11/26/2016] [facility] 31Result Comment: [11/26/2016] [facility] 32Result Comment: [11/26/2016] [facility] 33Result Comment: [11/26/2016] [facility] 34Result Comment: [11/26/2016] [facility] 35Result Comment: [11/26/2016] [facility] Medications [...] Team Personnel Name: Live Leyva MD Position: [facility] Physician -Physician Practices Member Role: Lifetime Consulting Physician Name: Jeanmarie Lopez MD Position: [facility] Renal MD Member Role: Lifetime Consulting Physician Address: Address: [address] [place] [address] [address] [place] [address]- Name: Lashonda Clifofrd Position: [facility] Outreach Member Role: Lifetime Consulting Physician Name: Tiera Wadsworth RN Position: [facility] RN Member Role: Primary Care Nurse Name: John Davila DO Position: [facility] Renal MD Member Role: Lifetime Consulting Physician Address: Address: [address] [place] [address] [address] [facility] [place] [address]- [place] Name: Karthik HENLEY, Isaiah Douglas Position: [facility] Physician - Primary Care Member Role: PCP Address: Address: [address] [place] [address]- [place] Name: Annalise Lara RN Position: [facility] RN Member Role: Primary Care Nurse Name: Mark Wilkes MD Position: [facility] Renal MD Member Role: Lifetime Consulting Physician Address: Address: [address] [facility] [place] [address]- [place] Name: Bibiana Treviño RN Position: [facility] RN Member Role: Primary Care Nurse Care Team Related Persons Name: MIRA MILLER Address: [place] Address: home [address] [place] [address] Name: MIRA MILLER Address: home [address] [place] [phone] Name: PRATEEK MILLER Address: home [address] [place] [address] Name: BELEN MILLER Address: [address] [place] [address] Name: BELEN MILLER Address: home [address] [place] [address]
--- OUTSIDE RECORDS SUMMARY | 2024-05-20 07:41 | XMS_ITS | Continuity of Care Document ---
Author Organization [facility] Address [address] [place] [address]- Care Team Providers Care Community Development Coordinator Name Role Phone Karthik HENLEY, Isaiah Douglas Primary Care Physician [place] [facility] Date(s): 07/05/21 - 08/04/21 [facility] [address] [place] [address]- Allergies, Adverse Reactions, Alerts Substance Reaction Severity [...] Guardian Refuses 1Result Comment: [facility]-[id number] 2Location History: [facility] [place] 3Result Comment: [11/26/2016] [facility] 4Result Comment: [11/26/2016] [facility] 5Result Comment: [11/26/2016] [facility] 6Result Comment: [11/26/2016] [facility] 7Result Comment: [11/26/2016] [facility] 8Result Comment: [11/26/2016] [facility] 9Result Comment: [11/26/2016] [facility] 10Result Comment: [11/26/2016] [facility] 11Result Comment: [11/26/2016] [facility] 12Result Comment: [11/26/2016] [facility] 13Result Comment: [11/26/2016] [facility] 14Result Comment: [11/26/2016] [facility] 15Result Comment: [11/26/2016] [facility] 16Result Comment: [11/26/2016] [facility] 17Result Comment: [11/26/2016] [facility] 18Result Comment: [11/26/2016] [facility] 19Result Comment: [11/26/2016] [facility] 20Result Comment: [11/26/2016] [facility] 21Result Comment: [11/26/2016] [facility] 22Result Comment: [11/26/2016] [facility] 23Result Comment: [11/26/2016] [facility] 24Result Comment: [11/26/2016] [facility] 25Result Comment: [11/26/2016] [facility] 26Result Comment: [11/26/2016] [facility] 27Result Comment: [11/26/2016] [facility] 28Result Comment: [11/26/2016] [facility] 29Result Comment: [11/26/2016] [facility] 30Result Comment: [11/26/2016] [facility] 31Result Comment: [11/26/2016] [facility] 32Result Comment: [11/26/2016] [facility] 33Result Comment: [11/26/2016] [facility]ations lidocaine 4% topical film 1 [...]
--- OUTSIDE RECORDS SUMMARY | 2024-05-20 07:41 | XMS_ITS | Continuity of Care Document ---
Author Organization [facility] Address [address] [place] [address]- Care Team Providers Care Taker Off Name Role Phone Karthik HENLEY, Isaiah Douglas Primary Care Physician En[place] [facility] [place] Date(s): 03/15/21 - 03/22/21 [facility] Adult [address] [place] [address]- Encounter Diagnosis RLQ abdominal pain(Discharge Diagnosis) - 03/15/21 Attending Physician: Not on Staff, Attending MD [...] Guardian Refuses 1Result Comment: [facility]-[id number] 2Location History: [facility] [place] 3Result Comment: [11/26/2016] [facility] 4Result Comment: [11/26/2016] [facility] 5Result Comment: [11/26/2016] [facility] 6Result Comment: [11/26/2016] [facility] 7Result Comment: [11/26/2016] [facility] 8Result Comment: [11/26/2016] [facility] 9Result Comment: [11/26/2016] [facility] 10Result Comment: [11/26/2016] [facility] 11Result Comment: [11/26/2016] [facility] 12Result Comment: [11/26/2016] [facility] 13Result Comment: [11/26/2016] [facility] 14Result Comment: [11/26/2016] [facility] 15Result Comment: [11/26/2016] [facility] 16Result Comment: [11/26/2016] [facility] 17Result Comment: [11/26/2016] [facility] 18Result Comment: [11/26/2016] [facility] 19Result Comment: [11/26/2016] [facility] 20Result Comment: [11/26/2016] [facility] 21Result Comment: [11/26/2016] [facility] 22Result Comment: [11/26/2016] [facility] 23Result Comment: [11/26/2016] [facility] 24Result Comment: [11/26/2016] [facility] 25Result Comment: [11/26/2016] [facility] 26Result Comment: [11/26/2016] [facility] 27Result Comment: [11/26/2016] [facility] 28Result Comment: [11/26/2016] [facility] 29Result Comment: [11/26/2016] [facility] 30Result Comment: [11/26/2016] [facility] 31Result Comment: [11/26/2016] [facility] 32Result Comment: [11/26/2016] [facility] 33Result Comment: [11/26/2016] [facility] Medications levothyroxine 125 mcg (0.125 mg) [...] Diagnosis Diagnosis Type Effective Dates Health Status Cl inical Service Informant RLQ abdominal pain Discharge Diagnosis 03/15/21 Vital Signs Most recent to oldest [Reference Range]: 1 Height 155 cm (03/15/21 9:08 AM) Weight 68.7 kg (03/15/21 9:08 AM) Pulse Rate [55-90 bpm] 77 bpm (7/28/21 9:08 AM) Body Mass Index [18.5-24.99] 28.6 *H* (03/15/21 9:08 AM) Blood Pressure [90-138/55-84 mm Hg] 129/ 85mm Hg (03/15/21 9:08 AM) Temperature [96.8-100.4 DegF] 97.9 DegF (03/15/21 9:08 AM) Blood pressure sites Arm, left (03/15/21 9:08 AM) Temperature Route Oral (03/15/21 9:08 AM) Weight Obtained Via Standing scale (03/15/21 9:08 AM) Social History Social History Type Response Smoking Status Never smoker entered on: 10/24/17 Sex
--- OUTSIDE RECORDS SUMMARY | 2024-05-20 07:41 | XMS_ITS | Continuity of Care Document ---
Author Organization [facility] I[facility] Ethan lt Address [address] [place] [address]- Care Team Providers Care Cross Enterprise Integrator Name Role Phone Karthik HENLEY, Isaiah Douglas Primary Care Physician Encounter [facility] Date(s): 08/22/20 - 09/21/20 [facility] Adult [address] [place] [address]- Allergies, Adverse Reactions, Alerts Substance Reaction Severity [...] Or Guardian Refuses 1Result Comment: [facility]-[id number] 2Location History: [facility] [place] 3Result Comment: [11/26/2016] [facility] 4Result Comment: [11/26/2016] [facility] 5Result Comment: [11/26/2016] [facility] 6Result Comment: [11/26/2016] [facility] 7Result Comment: [11/26/2016] [facility] 8Result Comment: [11/26/2016] [facility] 9Result Comment: [11/26/2016] [facility] 10Result Comment: [11/26/2016] [facility] 11Result Comment: [11/26/2016] [facility] 12Result Comment: [11/26/2016] [facility] 13Result Comment: [11/26/2016] [facility] 14Result Comment: [11/26/2016] [facility] 15Result Comment: [11/26/2016] [facility] 16Result Comment: [11/26/2016] [facility] 17Result Comment: [11/26/2016] [facility] 18Result Comment: [11/26/2016] [facility] 19Result Comment: [11/26/2016] [facility] 20Result Comment: [11/26/2016] [facility] 21Result Comment: [11/26/2016] [facility] 22Result Comment: [11/26/2016] [facility] 23Result Comment: [11/26/2016] [facility] 24Result Comment: [11/26/2016] [facility] 25Result Comment: [11/26/2016] [facility] 26Result Comment: [11/26/2016] [facility] 27Result Comment: [11/26/2016] [facility] 28Result Comment: [11/26/2016] [facility] 29Result Comment: [11/26/2016] [facility] 30Result Comment: [11/26/2016] [facility] 31Result Comment: [11/26/2016] [facility] 32Result Comment: [11/26/2016] [facility] 33Result Comment: [11/26/2016] [facility] Medications carvedilol 12.5 mg oral tablet [...]
--- OUTSIDE RECORDS SUMMARY | 2024-05-20 07:41 | XMS_ITS | Continuity of Care Document ---
Author Organization [facility] Ethan lt Address [address] [place] [address]- Care Team Providers Care Tanning Salon Attendant Name Role Phone Karthik HENLEY, Isaiah Douglas Primary Care Physician [phone] Encounter [facility] Date(s): 03/27/21 - 04/26/21 [facility] Adult [address] [place] [address]- Allergies, Adverse Reactions, Alerts Substance Reaction Severity [...] 1Result Comment: [facility]-[id number] 2Location History: [facility] [place] 3Result Comment: [11/26/2016] [facility] 4Result Comment: [11/26/2016] [facility] 5Result Comment: [11/26/2016] [facility] 6Result Comment: [11/26/2016] [facility] 7Result Comment: [11/26/2016] [facility] 8Result Comment: [11/26/2016] [facility] 9Result Comment: [11/26/2016] [facility] 10Result Comment: [11/26/2016] [facility] 11Result Comment: [11/26/2016] [facility] 12Result Comment: [11/26/2016] [facility] 13Result Comment: [11/26/2016] [facility] 14Result Comment: [11/26/2016] [facility] 15Result Comment: [11/26/2016] [facility] 16Result Comment: [11/26/2016] [facility] 17Result Comment: [11/26/2016] [facility] 18Result Comment: [11/26/2016] [facility] 19Result Comment: [11/26/2016] [facility] 20Result Comment: [11/26/2016] [facility] 21Result Comment: [11/26/2016] [facility] 22Result Comment: [11/26/2016] [facility] 23Result Comment: [11/26/2016] [facility] 24Result Comment: [11/26/2016] [facility] 25Result Comment: [11/26/2016] [facility] 26Result Comment: [11/26/2016] [facility] 27Result Comment: [11/26/2016] [facility] 28Result Comment: [11/26/2016] [facility] 29Result Comment: [11/26/2016] [facility] 30Result Comment: [11/26/2016] [facility] 31Result Comment: [11/26/2016] [facility] 32Result Comment: [11/26/2016] [facility] 33Result Comment: [11/26/2016] [facility] Medications levothyroxine 125 mcg (0.125 mg) [...]
--- OUTSIDE RECORDS SUMMARY | 2024-05-20 07:41 | XMS_ITS | Continuity of Care Document ---
Author Organization [facility] Ethan lt Address [address] [place] [address]- Care Team Providers Care Automotive Hardware Engineer Name Role Phone Isaiah Angeles MD Primary Care Physician Encounter [facility] Date(s): 03/22/21 - 03/29/21 [facility] Adult [address] [place] [address]- Attending Physician: Isaiah Angeles MD Allergies, Adverse [...] Or Guardian Refuses 1Result Comment: [facility]-[id number] 2Location History: [facility] [place] 3Result Comment: [11/26/2016] [facility] 4Result Comment: [11/26/2016] [facility] 5Result Comment: [11/26/2016] [facility] 6Result Comment: [11/26/2016] [facility] 7Result Comment: [11/26/2016] [facility] 8Result Comment: [11/26/2016] [facility] 9Result Comment: [11/26/2016] [facility] 10Result Comment: [11/26/2016] [facility] 11Result Comment: [11/26/2016] [facility] 12Result Comment: [11/26/2016] [facility] 13Result Comment: [11/26/2016] [facility] 14Result Comment: [11/26/2016] [facility] 15Result Comment: [11/26/2016] [facility] 16Result Comment: [11/26/2016] [facility] 17Result Comment: [11/26/2016] [facility] 18Result Comment: [11/26/2016] [facility] 19Result Comment: [11/26/2016] [facility] 20Result Comment: [11/26/2016] [facility] 21Result Comment: [11/26/2016] [facility] 22Result Comment: [11/26/2016] [facility] 23Result Comment: [11/26/2016] [facility] 24Result Comment: [11/26/2016] [facility] 25Result Comment: [11/26/2016] [facility] 26Result Comment: [11/26/2016] [facility] 27Result Comment: [11/26/2016] [facility] 28Result Comment: [11/26/2016] [facility] 29Result Comment: [11/26/2016] [facility] 30Result Comment: [11/26/2016] [facility] 31Result Comment: [11/26/2016] [facility] 32Result Comment: [11/26/2016] [facility] 33Result Comment: [11/26/2016] [facility] Medications levothyroxine 125 mcg (0.125 mg) [...]
--- OUTSIDE RECORDS SUMMARY | 2024-05-20 07:41 | XMS_ITS | Continuity of Care Document ---
Author Organization [facility] Ethan lt Address [address] [place] [address]- Care Team Providers Care Oil Tank Car Cleaner Name Role Phone Karthik HENLEY, Isaiah Douglas Primary Care Physician Encounter [facility] Date(s): 07/22/20 - 08/21/20 [facility] Adult [address] [place] [address]- Allergies, Adverse Reactions, Alerts Substance Reaction Severity [...] Guardian Refuses 1Result Comment: [facility]-[id number] 2Location History: [facility] [place] 3Result Comment: [11/26/2016] [facility] 4Result Comment: [11/26/2016] [facility] 5Result Comment: [11/26/2016] [facility] 6Result Comment: [11/26/2016] [facility] 7Result Comment: [11/26/2016] [facility] 8Result Comment: [11/26/2016] [facility] 9Result Comment: [11/26/2016] [facility] 10Result Comment: [11/26/2016] [facility] 11Result Comment: [11/26/2016] [facility] 12Result Comment: [11/26/2016] [facility] 13Result Comment: [11/26/2016] [facility] 14Result Comment: [11/26/2016] [facility] 15Result Comment: [11/26/2016] [facility] 16Result Comment: [11/26/2016] [facility] 17Result Comment: [11/26/2016] [facility] 18Result Comment: [11/26/2016] [facility] 19Result Comment: [11/26/2016] [facility] 20Result Comment: [11/26/2016] [facility] 21Result Comment: [11/26/2016] [facility] 22Result Comment: [11/26/2016] [facility] 23Result Comment: [11/26/2016] [facility] 24Result Comment: [11/26/2016] [facility] 25Result Comment: [11/26/2016] [facility] 26Result Comment: [11/26/2016] [facility] 27Result Comment: [11/26/2016] [facility] 28Result Comment: [11/26/2016] [facility] 29Result Comment: [11/26/2016] [facility] 30Result Comment: [11/26/2016] [facility] 31Result Comment: [11/26/2016] [facility] 32Result Comment: [11/26/2016] [facility] 33Result Comment: [11/26/2016] [facility] Medications carvedilol 12.5 mg oral tablet [...]
--- OUTSIDE RECORDS SUMMARY | 2024-05-20 07:41 | XMS_ITS | Continuity of Care Document ---
Author Organization [facility] Ethan lt Address [address] [place] [address]- Care Team Providers Care Clinical Appeals Rn Name Role Phone Karthik HENLEY, Isaiah Douglas Primary Care Physician [phone] Encounter [facility] Date(s): 10/10/22 - 11/09/22 [facility] Adult [address] [place] [address]- Allergies, Adverse Reactions, Alerts Substance Reaction Severity Status codeine 1 Surgical adhesive ta pe itching Active Adhesive Bandage 2 Rash Active riTUXimab 3 Severe Active 1hives 2surgical tape allergy as per family 3developed anaphylaxis with throat closure sensation and facial swelling needed brief epinephrine drip Immunizations Given and Recorded Vaccine Date Status Refusal Reason tetanus-diphtheria toxoids (Td) 1 08/15/22 Given [id number] bivalent booster vax 07/05/22 Recorded influenza virus [...] Given Parent Or Guardian Refuses 1Result Comment: [id number] 2Result Comment: [facility] [place] 3Result Comment: [facility]-[id number] 4Location History: [facility] [place] 5Result Comment: [11/26/2016] [facility] 6Result Comment: [11/26/2016] [facility] 7Result Comment: [11/26/2016] [facility] 8Result Comment: [11/26/2016] [facility] 9Result Comment: [11/26/2016] [facility] 10Result Comment: [11/26/2016] [facility] 11Result Comment: [11/26/2016] [facility] 12Result Comment: [11/26/2016] [facility] 13Result Comment: [11/26/2016] [facility] 14Result Comment: [11/26/2016] [facility] 15Result Comment: [11/26/2016] [facility] 16Result Comment: [11/26/2016] [facility] 17Result Comment: [11/26/2016] [facility] 18Result Comment: [11/26/2016] [facility] 19Result Comment: [11/26/2016] [facility] 20Result Comment: [11/26/2016] [facility] 21Result Comment: [11/26/2016] [facility] 22Result Comment: [11/26/2016] [facility] 23Result Comment: [11/26/2016] [facility] 24Result Comment: [11/26/2016] [facility] 25Result Comment: [11/26/2016] [facility] 26Result Comment: [11/26/2016] [facility] 27Result Comment: [11/26/2016] [facility] 28Result Comment: [11/26/2016] [facility] 29Result Comment: [11/26/2016] [facility] 30Result Comment: [11/26/2016] [facility] 31Result Comment: [11/26/2016] [facility] 32Result Comment: [11/26/2016] [facility] 33Result Comment: [11/26/2016] [facility] 34Result Comment: [11/26/2016] [facility] 35Result Comment: [11/26/2016] [facility] Medications cholecalciferol 50 mcg (2000 intl [...] Role: Lifetime Consulting Physician Address: Address: [address] [place] [address], [facility] [address] [place] [address]- [place] Name: Lashonda Clifford Position: [facility] Outreach Member Role: Lifetime Consulting Physician Name: Tiera Wadsworth RN Position: [facility] RN Member Role: Primary Care Nurse Name: Isaiah Angeles MD Position: [facility] Primary Care Physician Member Role: PCP Address: Address: [address] [place] [address]- [place] Name: Annalise Lara RN Position: [facility] RN Member Role: Primary Care Nurse Name: Mark Wilkes MD Position: [facility] Renal MD Member Role: Lifetime Consulting Physician Address: Address: [address] [facility] [place] [address]- [place] Name: Bibiana Treviño RN Position: [facility] RN Member Role: Primary Care Nurse Care Team Related Persons Name: MIRA MILLER Address: [address] [id number] Name: MIRA MILLER Address: [address] [id number] Name: MIRA MILLER Address: [address] [id number] Name: MIRA MILLER Address: [address] [id number] Name: MIRA MILLER Address: [address] [id number] Name: MIRA MILLER Address: [address] [id number] Name: MRIA MILLER Address: [address] [id number] Name: PRATEEK MILLER Address: [address] [address] Name: BELEN MILLER Address: [address] [address] Name: BELEN MILLER Address: [address] [address]
--- OUTSIDE RECORDS SUMMARY | 2024-05-20 07:41 | XMS_ITS | Continuity of Care Document ---
Author Organization [facility] Address [address] [place] [address]- Care Team Providers Care Barrel Ribs Solderer Name Role Phone Karthik HENLEY, Isaiah Douglas Primary Care Physician Encounter [facility] Date(s): 07/26/20 - 08/25/20 [facility] [address] [place] [address]- Allergies, Adverse Reactions, Alerts Substance Reaction Severity [...] 1Result Comment: [facility]-[id number] 2Location History: [facility] [place] 3Result Comment: [11/26/2016] [facility] 4Result Comment: [11/26/2016] [facility] 5Result Comment: [11/26/2016] [facility] 6Result Comment: [11/26/2016] [facility] 7Result Comment: [11/26/2016] [facility] 8Result Comment: [11/26/2016] [facility] 9Result Comment: [11/26/2016] [facility] 10Result Comment: [11/26/2016] [facility] 11Result Comment: [11/26/2016] [facility] 12Result Comment: [11/26/2016] [facility] 13Result Comment: [11/26/2016] [facility] 14Result Comment: [11/26/2016] [facility] 15Result Comment: [11/26/2016] [facility] 16Result Comment: [11/26/2016] [facility] 17Result Comment: [11/26/2016] [facility] 18Result Comment: [11/26/2016] [facility] 19Result Comment: [11/26/2016] [facility] 20Result Comment: [11/26/2016] [facility] 21Result Comment: [11/26/2016] [facility] 22Result Comment: [11/26/2016] [facility] 23Result Comment: [11/26/2016] [facility] 24Result Comment: [11/26/2016] [facility] 25Result Comment: [11/26/2016] [facility] 26Result Comment: [11/26/2016] [facility] 27Result Comment: [11/26/2016] [facility] 28Result Comment: [11/26/2016] [facility] 29Result Comment: [11/26/2016] [facility] 30Result Comment: [11/26/2016] [facility] 31Result Comment: [11/26/2016] [facility] 32Result Comment: [11/26/2016] [facility] 33Result Comment: [11/26/2016] [facility] Medications carvedilol 12.5 mg oral tablet [...]
--- OUTSIDE RECORDS SUMMARY | 2024-05-20 07:41 | XMS_ITS | Continuity of Care Document ---
Author Organization [facility] Ethan lt Address [address] [place] [address]- Care Team Providers Care Supervisor Varnish Name Role Phone Karthik HENLEY, Isaiah Douglas Primary Care Physician [phone] Encounter [facility] Date(s): 07/06/21 - 08/05/21 [facility] Adult [address] [place] [address]- Allergies, Adverse Reactions, Alerts Substance Reaction Severity [...] Refuses 1Result Comment: [facility]-[id number] 2Location History: [facility] [place] 3Result Comment: [11/26/2016] [facility] 4Result Comment: [11/26/2016] [facility] 5Result Comment: [11/26/2016] [facility] 6Result Comment: [11/26/2016] [facility] 7Result Comment: [11/26/2016] [facility] 8Result Comment: [11/26/2016] [facility] 9Result Comment: [11/26/2016] [facility] 10Result Comment: [11/26/2016] [facility] 11Result Comment: [11/26/2016] [facility] 12Result Comment: [11/26/2016] [facility] 13Result Comment: [11/26/2016] [facility] 14Result Comment: [11/26/2016] [facility] 15Result Comment: [11/26/2016] [facility] 16Result Comment: [11/26/2016] [facility] 17Result Comment: [11/26/2016] [facility] 18Result Comment: [11/26/2016] [facility] 19Result Comment: [11/26/2016] [facility] 20Result Comment: [11/26/2016] [facility] 21Result Comment: [11/26/2016] [facility] 22Result Comment: [11/26/2016] [facility] 23Result Comment: [11/26/2016] [facility] 24Result Comment: [11/26/2016] [facility] 25Result Comment: [11/26/2016] [facility] 26Result Comment: [11/26/2016] [facility] 27Result Comment: [11/26/2016] [facility] 28Result Comment: [11/26/2016] [facility] 29Result Comment: [11/26/2016] [facility] 30Result Comment: [11/26/2016] [facility] 31Result Comment: [11/26/2016] [facility] 32Result Comment: [11/26/2016] [facility] 33Result Comment: [11/26/2016] [facility] Medications lidocaine 4% topical film 1 [...]
--- OUTSIDE RECORDS SUMMARY | 2024-05-20 07:41 | XMS_ITS | Continuity of Care Document ---
Author Organization [facility] Ethan lt Address [address] [place] [address]- Care Team Providers Care Opening Machine Cleaner Name Role Phone Karthik HENLEY, Isaiah Douglas Primary Care Physician [phone] Encounter [facility] Date(s): 04/20/21 - 05/20/21 [facility] Adult [address] [place] [address]- Allergies, Adverse Reactions, Alerts Substance Reaction Severity [...] Refuses 1Result Comment: [facility]-[id number] 2Location History: [facility] [place] 3Result Comment: [11/26/2016] [facility] 4Result Comment: [11/26/2016] [facility] 5Result Comment: [11/26/2016] [facility] 6Result Comment: [11/26/2016] [facility] 7Result Comment: [11/26/2016] [facility] 8Result Comment: [11/26/2016] [facility] 9Result Comment: [11/26/2016] [facility] 10Result Comment: [11/26/2016] [facility] 11Result Comment: [11/26/2016] [facility] 12Result Comment: [11/26/2016] [facility] 13Result Comment: [11/26/2016] [facility] 14Result Comment: [11/26/2016] [facility] 15Result Comment: [11/26/2016] [facility] 16Result Comment: [11/26/2016] [facility] 17Result Comment: [11/26/2016] [facility] 18Result Comment: [11/26/2016] [facility] 19Result Comment: [11/26/2016] [facility] 20Result Comment: [11/26/2016] [facility] 21Result Comment: [11/26/2016] [facility] 22Result Comment: [11/26/2016] [facility] 23Result Comment: [11/26/2016] [facility] 24Result Comment: [11/26/2016] [facility] 25Result Comment: [11/26/2016] [facility] 26Result Comment: [11/26/2016] [facility] 27Result Comment: [11/26/2016] [facility] 28Result Comment: [11/26/2016] [facility] 29Result Comment: [11/26/2016] [facility] 30Result Comment: [11/26/2016] [facility] 31Result Comment: [11/26/2016] [facility] 32Result Comment: [11/26/2016] [facility] 33Result Comment: [11/26/2016] [facility] Medications levothyroxine 125 mcg (0.125 mg) [...]
--- OUTSIDE RECORDS SUMMARY | 2024-05-20 07:41 | XMS_ITS | Continuity of Care Document ---
Author Organization [facility] Iain Ethan lt Address [address] [place] [address]- Care Team Providers Care Child Life Therapist Name Role Phone Karthik HENLEY, Isaiah Douglas Primary Care Physician Encounter [facility] Date(s): 02/16/20 - 03/17/20 [facility] Adult [address] [place] [address]- [facility] Allergies, Adverse Reactions, Alerts Substance Reaction Severity [...] 1Result Comment: [facility]-[id number] 2Location History: [facility] [place] 3Result Comment: [11/26/2016] [facility] 4Result Comment: [11/26/2016] [facility] 5Result Comment: [11/26/2016] [facility] 6Result Comment: [11/26/2016] [facility] 7Result Comment: [11/26/2016] [facility] 8Result Comment: [11/26/2016] [facility] 9Result Comment: [11/26/2016] [facility] 10Result Comment: [11/26/2016] [facility] 11Result Comment: [11/26/2016] [facility] 12Result Comment: [11/26/2016] [facility] 13Result Comment: [11/26/2016] [facility] 14Result Comment: [11/26/2016] [facility] 15Result Comment: [11/26/2016] [facility] 16Result Comment: [11/26/2016] [facility] 17Result Comment: [11/26/2016] [facility] 18Result Comment: [11/26/2016] [facility] 19Result Comment: [11/26/2016] [facility] 20Result Comment: [11/26/2016] [facility] 21Result Comment: [11/26/2016] [facility] 22Result Comment: [11/26/2016] [facility] 23Result Comment: [11/26/2016] [facility] 24Result Comment: [11/26/2016] [facility] 25Result Comment: [11/26/2016] [facility] 26Result Comment: [11/26/2016] [facility] 27Result Comment: [11/26/2016] [facility] 28Result Comment: [11/26/2016] [facility] 29Result Comment: [11/26/2016] [facility] 30Result Comment: [11/26/2016] [facility] 31Result Comment: [11/26/2016] [facility] 32Result Comment: [11/26/2016] [facility] 33Result Comment: [11/26/2016] [facility] Medications Flovent HFA 110 mcg/inh inhalation [...]
--- OUTSIDE RECORDS SUMMARY | 2024-05-20 07:41 | XMS_ITS | Continuity of Care Document ---
Author Organization [facility] Ethan lt Address [address] [place] [address]- Care Team Providers Care Dinkey Motor Operator Name Role Phone Karthik HENLEY, Isaiah Douglas Primary Care Physician [phone] Encounter [facility] Date(s): 09/30/23 - 10/30/23 [facility] Adult [address] [place] [address]- Allergies, Adverse Reactions, Alerts Substance Reaction Severity [...] corded tetanus-diphtheria toxoids (Td) 10 08/15/22 Given [id number] bivalent booster vax 07/05/22 Recorded SARS-CoV-2 (COVID-19) [...] Comment: [facility] [place] 2Result Comment: [facility]-[id number] 3Location History: [facility] [place] 4Result Comment: [11/26/2016] [facility] 5Result Comment: [11/26/2016] [facility] 6Result Comment: [11/26/2016] [facility] 7Result Comment: [11/26/2016] [facility] 8Result Comment: [11/26/2016] [facility] 9Result Comment: [11/26/2016] [facility] 10Result Comment: [id number] 11Result Comment: [11/26/2016] [facility] 12Result Comment: [11/26/2016] [facility] 13Result Comment: [11/26/2016] [facility] 14Result Comment: [11/26/2016] [facility] 15Result Comment: [11/26/2016] [facility] 16Result Comment: [11/26/2016] [facility] 17Result Comment: [11/26/2016] [facility] 18Result Comment: [11/26/2016] [facility] 19Result Comment: [11/26/2016] [facility] 20Result Comment: [11/26/2016] [facility] 21Result Comment: [11/26/2016] [facility] 22Result Comment: [11/26/2016] [facility] 23Result Comment: [11/26/2016] [facility] 24Result Comment: [11/26/2016] [facility] 25Result Comment: [11/26/2016] [facility] 26Result Comment: [11/26/2016] [facility] 27Result Comment: [11/26/2016] [facility] 28Result Comment: [11/26/2016] [facility] 29Result Comment: [11/26/2016] [facility] 30Result Comment: [11/26/2016] [facility] 31Result Comment: [11/26/2016] [facility] 32Result Comment: [11/26/2016] [facility] 33Result Comment: [11/26/2016] [facility] 34Result Comment: [11/26/2016] [facility] 35Result Comment: [11/26/2016] [facility] Medications [...] Team Personnel Name: Live Leyva MD Position: [facility] Physician -Physician Practices Member Role: Lifetime Consulting Physician Name: Jeanmarie Lopez MD Position: [facility] Renal MD Member Role: Lifetime Consulting Physician Address: Address: [address] [place] [address] [address] [facility] [address]- [place] Name: Lashonda Clifford Position: [facility] Outreach Member Role: Lifetime Consulting Physician Name: Tiera Wadsworth RN Position: [facility] RN Member Role: Primary Care Nurse Name: Isaiah Angeles MD Position: [facility] Physician - Primary Care Member Role: PCP Address: Address: [address] [place] [address]- [place] Name: Annalise Lara RN Position: [facility] RN Member Role: Primary Care Nurse Name: Mark Wilkes MD Position: [facility] Renal MD Member Role: Lifetime Consulting Physician Address: Address: [address] [place] [address] [facility] [place] [address]- [place] Name: Bibiana Treviño RN Position: [facility] RN Member Role: Primary Care Nurse Care Team Related Persons Name: MIRA MILLER Address: [place] Address: home [address] [place] [address] [place] Name: MIRA MILLER Address: home [address] [id number] Name: PRATEEK MILLER Address: home [address] [place] [address] Name: BELEN MILLER Address: [address] [place] [address] Name: BELEN MILLER Address: home [address] [place] [address]
--- OUTSIDE RECORDS SUMMARY | 2024-05-20 07:41 | XMS_ITS | Continuity of Care Document ---
Author Organization [facility] Address [address] [place] [address]- Care Team Providers Care Wrist Hemmer Name Role Phone Karthik HENLEY, Isaiah Douglas Primary Care Physician Encounter [facility] Date(s): 11/30/20 - 12/30/20 [facility] [address] [place] [address]- Allergies, Adverse Reactions, Alerts Substance Reaction Severity [...] Refuses 1Result Comment: [facility]-[id number] 2Location History: [facility] [place] 3Result Comment: [11/26/2016] [facility] 4Result Comment: [11/26/2016] [facility] 5Result Comment: [11/26/2016] [facility] 6Result Comment: [11/26/2016] [facility] 7Result Comment: [11/26/2016] [facility] 8Result Comment: [11/26/2016] [facility] 9Result Comment: [11/26/2016] [facility] 10Result Comment: [11/26/2016] [facility] 11Result Comment: [11/26/2016] [facility] 12Result Comment: [11/26/2016] [facility] 13Result Comment: [11/26/2016] [facility] 14Result Comment: [11/26/2016] [facility] 15Result Comment: [11/26/2016] [facility] 16Result Comment: [11/26/2016] [facility] 17Result Comment: [11/26/2016] [facility] 18Result Comment: [11/26/2016] [facility] 19Result Comment: [11/26/2016] [facility] 20Result Comment: [11/26/2016] [facility] 21Result Comment: [11/26/2016] [facility] 22Result Comment: [11/26/2016] [facility] 23Result Comment: [11/26/2016] [facility] 24Result Comment: [11/26/2016] [facility] 25Result Comment: [11/26/2016] [facility] 26Result Comment: [11/26/2016] [facility] 27Result Comment: [11/26/2016] [facility] 28Result Comment: [11/26/2016] [facility] 29Result Comment: [11/26/2016] [facility] 30Result Comment: [11/26/2016] [facility] 31Result Comment: [11/26/2016] [facility] 32Result Comment: [11/26/2016] [facility] 33Result Comment: [11/26/2016] [facility] Medications lidocaine 4% topical film 1 [...]
--- OUTSIDE RECORDS SUMMARY | 2024-05-20 07:41 | XMS_ITS | Continuity of Care Document ---
Author Organization [facility] Ethan lt Address [address] [place] [address]- Care Team Providers Care Construction Equipment Operator Name Role Phone Karthik HENLEY, Isaiah Douglas Primary Care Physician Encounter [facility] Date(s): 05/02/21 - 06/01/21 [facility] Adult [address] [place] [address]- Allergies, Adverse Reactions, Alerts Substance Reaction Severity Status codeine itching Active Adhesive Bandage Rash Active Immunizations Given and Recorded Vaccine Date Status Refusal Reason SARS-CoV-2 (COVID-19) mRNA BNT-162b2 vac 12/18/20 Recorded SARS-CoV-2 (COVID-19) mRNA BNT-162b2 vac 11/27/20 Recorded influenza virus vaccine, inactivated 1 05/20/19 Gi ilbby influenza virus vaccine, inactivated 2 07/06/18 Re [...] Guardian Refuses 1Result Comment: [facility]-[id number] 2Location History: [facility] [place] 3Result Comment: [11/26/2016] [facility] 4Result Comment: [11/26/2016] [facility] 5Result Comment: [11/26/2016] [facility] 6Result Comment: [11/26/2016] [facility] 7Result Comment: [11/26/2016] [facility] 8Result Comment: [11/26/2016] [facility] 9Result Comment: [11/26/2016] [facility] 10Result Comment: [11/26/2016] [facility] 11Result Comment: [11/26/2016] [facility] 12Result Comment: [11/26/2016] [facility] 13Result Comment: [11/26/2016] [facility] 14Result Comment: [11/26/2016] [facility] 15Result Comment: [11/26/2016] [facility] 16Result Comment: [11/26/2016] [facility] 17Result Comment: [11/26/2016] [facility] 18Result Comment: [11/26/2016] [facility] 19Result Comment: [11/26/2016] [facility] 20Result Comment: [11/26/2016] [facility] 21Result Comment: [11/26/2016] [facility] 22Result Comment: [11/26/2016] [facility] 23Result Comment: [11/26/2016] [facility] 24Result Comment: [11/26/2016] [facility] 25Result Comment: [11/26/2016] [facility] 26Result Comment: [11/26/2016] [facility] 27Result Comment: [11/26/2016] [facility] 28Result Comment: [11/26/2016] [facility] 29Result Comment: [11/26/2016] [facility] 30Result Comment: [11/26/2016] [facility] 31Result Comment: [11/26/2016] [facility] 32Result Comment: [11/26/2016] [facility] 33Result Comment: [11/26/2016] [facility] Medications levothyroxine 125 mcg (0.125 mg) [...]
--- OUTSIDE RECORDS SUMMARY | 2024-05-20 07:42 | XMS_ITS | Continuity of Care Document ---
Author Organization [facility] Address [address] [place] [address]- Care Team Providers Care Senior Cost Estimator Name Role Phone Karthik HENLEY, Isaiah Dougals Primary Care Physician Encounter [facility] Date(s): 10/16/23 - 11/15/23 [facility] [address] [place] [address]- Allergies, Adverse Reactions, Alerts Substance Reaction Severity [...] corded tetanus-diphtheria toxoids (Td) 10 08/15/22 Given [id number] bivalent booster vax 07/05/22 Recorded SARS-CoV-2 (COVID-19) [...] Comment: [facility] [place] 2Result Comment: [facility]-[id number] 3Location History: [facility] [place] 4Result Comment: [11/26/2016] [facility] 5Result Comment: [11/26/2016] [facility] 6Result Comment: [11/26/2016] [facility] 7Result Comment: [11/26/2016] [facility] 8Result Comment: [11/26/2016] [facility] 9Result Comment: [11/26/2016] [facility] 10Result Comment: [id number] 11Result Comment: [11/26/2016] [facility] 12Result Comment: [11/26/2016] [facility] 13Result Comment: [11/26/2016] [facility] 14Result Comment: [11/26/2016] [facility] 15Result Comment: [11/26/2016] [facility] 16Result Comment: [11/26/2016] [facility] 17Result Comment: [11/26/2016] [facility] 18Result Comment: [11/26/2016] [facility] 19Result Comment: [11/26/2016] [facility] 20Result Comment: [11/26/2016] [facility] 21Result Comment: [11/26/2016] [facility] 22Result Comment: [11/26/2016] [facility] 23Result Comment: [11/26/2016] [facility] 24Result Comment: [11/26/2016] [facility] 25Result Comment: [11/26/2016] [facility] 26Result Comment: [11/26/2016] [facility] 27Result Comment: [11/26/2016] [facility] 28Result Comment: [11/26/2016] [facility] 29Result Comment: [11/26/2016] [facility] 30Result Comment: [11/26/2016] [facility] 31Result Comment: [11/26/2016] [facility] 32Result Comment: [11/26/2016] [facility] 33Result Comment: [11/26/2016] [facility] 34Result Comment: [11/26/2016] [facility] 35Result Comment: [11/26/2016] [facility] Medications [...] Role: Lifetime Consulting Physician Address: Address: [address] [place] [address] [address] [place] [address]- Name: Lashonda Clifford Position: [facility] Outreach Member Role: Lifetime Consulting Physician Name: Tiera Wadsworth RN Position: [facility] RN Member Role: Primary Care Nurse Name: Isaiah Angeles MD Position: [facility] Physician - Primary Care Member Role: PCP Address: Address: [address] [place] [address]- [place] Name: Annalise Lara RN Position: S RN Member Role: Primary Care Nurse Name: Mark Wilkes MD Position: [facility] Renal MD Member Role: Lifetime Consulting Physician Address: Address: [address] [place] [address] [facility] [place] [address]- Name: Bibiana Treviño RN Position: S RN Member Role: Primary Care Nurse Care Team Related Persons Name: MIRA MILLER Address: home [address] [address] Name: MIRA MILLER Address: [place] Address: home [address] [place] [address] [place] Name: PRATEEK MILLER Address: [address] [place] [address] Name: BELEN MILLER Address: [address] [place] [address] Name: BELEN MILLER Address: [address] [place] [address]
--- OUTSIDE RECORDS SUMMARY | 2024-05-20 07:42 | XMS_ITS | Continuity of Care Document ---
Author Organization [facility] Address [address] [place] [address]- Care Team Providers Care J2Ee Engineer Name Role Phone Karthik HENLEY, Isaiah Douglas Primary Care Physician [phone] Encounter [facility] Date(s): 11/15/22 - 12/15/22 [facility] [address] [place] [address]- Allergies, Adverse Reactions, Alerts Substance Reaction Severity Status codeine 1 Surgical adhesive ta pe itching Active Adhesive Bandage 2 Rash Active riTUXimab 3 Severe Active 1hives 2surgical tape allergy as per family 3developed anaphylaxis with throat closure sensation and facial swelling needed brief epinephrine drip Immunizations Given and Recorded Vaccine Date Status Refusal Reason tetanus-diphtheria toxoids (Td) 1 08/15/22 Given [id number] bivalent booster vax 07/05/22 Recorded influenza virus [...] Given Parent Or Guardian Refuses 1Result Comment: [id number] 2Result Comment: [facility] [place] 3Result Comment: [facility]-[id number] 4Location History: [facility] [place] 5Result Comment: [11/26/2016] [facility] 6Result Comment: [11/26/2016] [facility] 7Result Comment: [11/26/2016] [facility] 8Result Comment: [11/26/2016] [facility] 9Result Comment: [11/26/2016] [facility] 10Result Comment: [11/26/2016] [facility] 11Result Comment: [11/26/2016] [facility] 12Result Comment: [11/26/2016] [facility] 13Result Comment: [11/26/2016] [facility] 14Result Comment: [11/26/2016] [facility] 15Result Comment: [11/26/2016] [facility] 16Result Comment: [11/26/2016] [facility] 17Result Comment: [11/26/2016] [facility] 18Result Comment: [11/26/2016] [facility] 19Result Comment: [11/26/2016] [facility] 20Result Comment: [11/26/2016] [facility] 21Result Comment: [11/26/2016] [facility] 22Result Comment: [11/26/2016] [facility] 23Result Comment: [11/26/2016] [facility] 24Result Comment: [11/26/2016] [facility] 25Result Comment: [11/26/2016] [facility] 26Result Comment: [11/26/2016] [facility] 27Result Comment: [11/26/2016] [facility] 28Result Comment: [11/26/2016] [facility] 29Result Comment: [11/26/2016] [facility] 30Result Comment: [11/26/2016] [facility] 31Result Comment: [11/26/2016] [facility] 32Result Comment: [11/26/2016] [facility] 33Result Comment: [11/26/2016] [facility] 34Result Comment: [11/26/2016] [facility] 35Result Comment: [11/26/2016] [facility] Medications cholecalciferol 50 mcg (2000 intl [...] Role: Lifetime Consulting Physician Address: Address: [address] [place] [address], [address] [facility] [address] Name: Lashonda Clifford Position: [facility] Outreach Member Role: Lifetime Consulting Physician Name: Tiera Wadsworth RN Position: [facility] RN Member Role: Primary Care Nurse Name: Isaiah Angeles MD Position: [facility] Primary Care Physician Member Role: PCP Address: Address: [address] [place] [address]- Name: Annalise Lara RN Position: [facility] RN Member Role: Primary Care Nurse Name: Mark Wilkes MD Position: [facility] Renal MD Member Role: Lifetime Consulting Physician Address: Address: [address] [place] [address] [facility] [place], [place] [address] Name: Bibiana Treviño RN Position: [facility] RN Member Role: Primary Care Nurse Care Team Related Persons Name: CLAUDETTE MILLERE Address: [address] [phone] Name: AKASHMIRA CARTY Address: [place] [phone] Name: ANGELAMIRA Address: [address] [phone] Name: AKASHMIRA CARTY Address: [address] [phone] Name: AKASHMIRA CARTY Address: [address] [phone] Name: ANGELAMIRA Address: [address] [phone] Name: AKASHMIRA CARTY Address: [address] [id number] Name: PRATEEK MILLER Address: [address] [address] Name: BELEN MILLER Address: home [address] [place] [address] Name: BELEN MILLER Address: [address] [address]
--- OUTSIDE RECORDS SUMMARY | 2024-05-20 07:42 | XMS_ITS | Continuity of Care Document ---
Author Organization [facility] Address [address] [place] [address]- Care Team Providers Care Armoring Machine Operator Name Role Phone Karthik HENLEY, Isaiah Douglas Primary Care Physician [phone] Encounter [facility] Date(s): 03/19/24 - 04/18/24 [facility] [address] [place] [address]- Allergies, Adverse Reactions, Alerts Substance Reaction Severity [...] corded tetanus-diphtheria toxoids (Td) 10 08/15/22 Given [id number] bivalent booster vax 07/05/22 Recorded SARS-CoV-2 (COVID-19) [...] Comment: [facility] [place] 2Result Comment: [facility]-[id number] 3Location History: [facility] [place] 4Result Comment: [11/26/2016] [facility] 5Result Comment: [11/26/2016] [facility] 6Result Comment: [11/26/2016] [facility] 7Result Comment: [11/26/2016] [facility] 8Result Comment: [11/26/2016] [facility] 9Result Comment: [11/26/2016] [facility] 10Result Comment: [id number] 11Result Comment: [11/26/2016] [facility] 12Result Comment: [11/26/2016] [facility] 13Result Comment: [11/26/2016] [facility] 14Result Comment: [11/26/2016] [facility] 15Result Comment: [11/26/2016] [facility] 16Result Comment: [11/26/2016] [facility] 17Result Comment: [11/26/2016] [facility] 18Result Comment: [11/26/2016] [facility] 19Result Comment: [11/26/2016] [facility] 20Result Comment: [11/26/2016] [facility] 21Result Comment: [11/26/2016] [facility] 22Result Comment: [11/26/2016] [facility] 23Result Comment: [11/26/2016] [facility] 24Result Comment: [11/26/2016] [facility] 25Result Comment: [11/26/2016] [facility] 26Result Comment: [11/26/2016] [facility] 27Result Comment: [11/26/2016] [facility] 28Result Comment: [11/26/2016] [facility] 29Result Comment: [11/26/2016] [facility] 30Result Comment: [11/26/2016] [facility] 31Result Comment: [11/26/2016] [facility] 32Result Comment: [11/26/2016] [facility] 33Result Comment: [11/26/2016] [facility] 34Result Comment: [11/26/2016] [facility] 35Result Comment: [11/26/2016] [facility] [...] Team Personnel Name: Live Leyva MD Position: [facility] Physician -Physician Practices Member Role: Lifetime Consulting Physician Name: Jeanmarie Lopez MD Position: [facility] Renal MD Member Role: Lifetime Consulting Physician Address: Address: [address] [place] [address] [address] [place] [address]- Name: Lashonda Clifford Position: [facility] Outreach Member Role: Lifetime Consulting Physician Name: Tiera Wadsworth RN Position: [facility] RN Member Role: Primary Care Nurse Name: John Davila DO Position: [facility] Renal MD Member Role: Lifetime Consulting Physician Address: Address: [address] [facility] [place] [address]- [place] Name: Karthik HENLEY, Isaiah Douglas Position: [facility] Physician - Primary Care Member Role: PCP Address: Address: [address] [place] [address]- [place] Name: Annalise Lara RN Position: S RN Member Role: Primary Care Nurse Name: Mark Wilkes MD Position: [facility] Renal MD Member Role: Lifetime Consulting Physician Address: Address: [address] [place] [address] [facility] [place] [address]- [place] Name: Bibiana Treviño RN Position: [facility] RN Member Role: Primary Care Nurse Care Team Related Persons Name: MIRA MILLER Address: home [address] [id number] Name: MIRA MILLER Address: [place] Address: [address] [place] [address] Name: PRATEEK MILLER Address: [address] [place] [address] Name: BELEN MILLER Address: [address] [place] [address] Name: BELEN MILLER Address: [address] [place] [address]
--- OUTSIDE RECORDS SUMMARY | 2024-05-20 07:42 | XMS_ITS | Continuity of Care Document ---
Author Organization [facility] Ethan lt Address [address] [place] [address]- Care Team Providers Care Service Electrician Name Role Phone Karthik HENLEY, Isaiah Douglas Primary Care Physician [phone] Encounter [facility] Date(s): 03/20/21 - 04/19/21 [facility] Adult [address] [place] [address]- Allergies, Adverse Reactions, Alerts Substance Reaction Severity [...] Given Parent Or Guardian Refuses 1Result Comment: [facility]-[id number] 2Location History: [facility] [place] 3Result Comment: [11/26/2016] [facility] 4Result Comment: [11/26/2016] [facility] 5Result Comment: [11/26/2016] [facility] 6Result Comment: [11/26/2016] [facility] 7Result Comment: [11/26/2016] [facility] 8Result Comment: [11/26/2016] [facility] 9Result Comment: [11/26/2016] [facility] 10Result Comment: [11/26/2016] [facility] 11Result Comment: [11/26/2016] [facility] 12Result Comment: [11/26/2016] [facility] 13Result Comment: [11/26/2016] [facility] 14Result Comment: [11/26/2016] [facility] 15Result Comment: [11/26/2016] [facility] 16Result Comment: [11/26/2016] [facility] 17Result Comment: [11/26/2016] [facility] 18Result Comment: [11/26/2016] [facility] 19Result Comment: [11/26/2016] [facility] 20Result Comment: [11/26/2016] [facility] 21Result Comment: [11/26/2016] [facility] 22Result Comment: [11/26/2016] [facility] 23Result Comment: [11/26/2016] [facility] 24Result Comment: [11/26/2016] [facility] 25Result Comment: [11/26/2016] [facility] 26Result Comment: [11/26/2016] [facility] 27Result Comment: [11/26/2016] [facility] 28Result Comment: [11/26/2016] [facility] 29Result Comment: [11/26/2016] [facility] 30Result Comment: [11/26/2016] [facility] 31Result Comment: [11/26/2016] [facility] 32Result Comment: [11/26/2016] [facility] 33Result Comment: [11/26/2016] [facility] levothyroxine 125 mcg (0.125 mg) [...]
--- OUTSIDE RECORDS SUMMARY | 2024-05-20 07:42 | XMS_ITS | Continuity of Care Document ---
Author Organization [facility] [place] Address [address] [facility] [place] [address]- Care Team Providers Care Shake Splitter Name Role Phone Karthik HENLEY, Isaiah Douglas Primary Care Physician Encounter 01/28/23 - 02/04/23 [facility] [address], [address] [place] [address]- Attending Physician: Martínez Delaney MD Admitting Physician: Martínez Delaney MD Referring Physician: Martínez Delaney MD Allergies, Adverse Reactions, Alerts Substance Reaction Severity Status codeine 1 Surgical adhesive ta pe itching Active Adhesive Bandage 2 Rash Active riTUXimab 3 Severe Active 1hives 2surgical tape allergy as per family 3developed anaphylaxis with throat closure sensation and facial swelling needed brief epinephrine drip Immunizations Given and Recorded Vaccine Date Status Refusal Reason tetanus-diphtheria toxoids (Td) 1 08/15/22 Given [id number] bivalent booster vax 07/05/22 Recorded influenza virus [...] Given Parent Or Guardian Refuses 1Result Comment: [id number] 2Result Comment: [facility] [place] 3Result Comment: [facility]-[id number] 4Location History: [facility] [place] 5Result Comment: [11/26/2016] [facility] 6Result Comment: [...] Exam Date Time Procedure Performing Provider Status 01/28/23 3:04 PM US Soft Tissue Head/Neck Katrin Flynn; Modified Notes: (US Soft Tissue Head/Neck) Reason For Exam: 13mm thyroid nodule noted on MRI;Nodules RESULT: US Soft Tissue Head/Neck US Soft Tissue Head/Neck Reason: Nodules; 13mm thyroid nodule noted on MRI COMPARISON: 04/14/2021, MRI cervical and thoracic spine 01/08/2023 FINDINGS: High-resolution, linear array imaging of the superficial soft tissues of the right parotid gland was performed. In the area of the right parotid T2 hyperintense lesion described on comparison MRI, there is a simple appearing superficial parotid cyst, anechoic and without vascular flow measuring 0.7 x 0.5 x 0.7cm. Visualized right parotid gland otherwise unremarkable. RIGHT THYROID LOBE: 1.8 x 0.5 x 0.6 cm, volume 0.3 cc, previously 0.8 cc. Heterogeneously hypoechoic echotexture and mild increased vascularity, similar to prior. No discrete right nodules. LEFT THYROID LOBE: 2.4 x 0.7 x 0.6 cm, volume 0.5 cc, previously 1.7 cc. Heterogeneously hypoechoic echotexture and mild increased vascularity, similar to prior. No discrete left nodules. A 0.8 x 1.1 x 0.6 cm area isolated for measurement appears similar to prior study and is thought to represent a parenchymal lobule as opposed to a true nodule. IMPRESSION: Atrophic thyroid gland again demonstrated consistent with history of prior thyroid ablation, slightly decreased in size compared to 2020 and with no discrete thyroid nodularity. Right parotid lesion in question appears to correspond to a 0.7 cm simple cyst. No suspicious sonographic findings. WSN: [id number] Ordering Physician: Martínez Delaney Dictated By: John Cage MD Dictated Date/Time: 01/28/23 3:53 pm Reviewed By: John Cage MD Signed By: John Cage MD Signed Date/Time: 01/28/23 3:53 pm Transcribed By: ABAD Transcribed Date/Time: 01/28/23 3:07 pm Social History Social History Type Response Smoking [...] Role: Lifetime Consulting Physician Address: Address: [address] [place] [address], [facility] [address] [facility] [place], [place] [address] Name: Lashonda Clifford Position: [facility] Outreach Member Role: Lifetime Consulting Physician Name: Isaiah Angeles MD Position: [facility] Physician - Primary Care Member Role: PCP Address: Address: [address] [place] [address]- Name: Annalise Lara RN Position: [facility] RN Member Role: Primary Care Nurse Name: Mark Wilkes MD Position: [facility] Renal MD Member Role: Lifetime Consulting Physician Address: Address: [address] [place] [address] [facility] [place] [address]- Name: Bibiana Treviño RN Position: [facility] RN Member Role: Primary Care Nurse Name: Martínez Delaney MD Position: [facility] Physician - Endocrinology Med Service: Endocrinology Member Role: Referring Physician Address: Address: [address] [place] [address] Care Team Related Persons Name: MIRA MILLER Address: [address], [id number] Name: MIRA MILLER Address: [address], [phone] Name: MIRA MILLER Address: [address], [phone] Name: MIRA MILLER Address: [address], [address] Name: MIRA MILLER Address: [address], [phone] Name: MIRA MILLER Address: [address], [phone] Name: MIRA MILLER Address: [address] [phone] Name: AKASHRICARDOJANETHPRATEEK Address: [address] [address] Name: BELEN MILLER Address: [address] [address] Name: BELEN MILLER Address: home [address] [place] [address]
--- OUTSIDE RECORDS SUMMARY | 2024-05-20 07:42 | XMS_ITS | Continuity of Care Document ---
Author Organization [facility] Address [address] [place] [address]- Care Team Providers Care Supervisor Fertilizer Processing Name Role Phone Karthik HENLEY, Isaiah Douglas Primary Care Physician [place] [facility] [place] 07/26/22 - 08/25/22 [facility] [address] [place] [address] Allergies, Adverse Reactions, Alerts Substance Reaction Severity Status codeine 1 Surgical adhesive ta pe itching Active Adhesive Bandage 2 Rash Active riTUXimab 3 Severe Active 1hives 2surgical tape allergy as per family 3developed anaphylaxis with throat closure sensation and facial swelling needed brief epinephrine drip Immunizations Given and Recorded Vaccine Date Status Refusal Reason tetanus-diphtheria toxoids (Td) 1 08/15/22 Given [id number] bivalent booster vax 07/05/22 Recorded influenza virus [...] Given Parent Or Guardian Refuses 1Result Comment: [id number] 2Result Comment: [facility] [place] 3Result Comment: [facility]-[id number] 4Location History: [facility] [place] 5Result Comment: [11/26/2016] [facility] 6Result Comment: [11/26/2016] [facility] 7Result Comment: [11/26/2016] [facility] 8Result Comment: [11/26/2016] [facility] 9Result Comment: [11/26/2016] [facility] 10Result Comment: [11/26/2016] [facility] 11Result Comment: [11/26/2016] [facility] 12Result Comment: [11/26/2016] [facility] 13Result Comment: [11/26/2016] [facility] 14Result Comment: [11/26/2016] [facility] 15Result Comment: [11/26/2016] [facility] 16Result Comment: [11/26/2016] [facility] 17Result Comment: [11/26/2016] [facility] 18Result Comment: [11/26/2016] [facility] 19Result Comment: [11/26/2016] [facility] 20Result Comment: [11/26/2016] [facility] 21Result Comment: [11/26/2016] [facility] 22Result Comment: [11/26/2016] [facility] 23Result Comment: [11/26/2016] [facility] 24Result Comment: [11/26/2016] [facility] 25Result Comment: [11/26/2016] [facility] 26Result Comment: [11/26/2016] [facility] 27Result Comment: [11/26/2016] [facility] 28Result Comment: [11/26/2016] [facility] 29Result Comment: [11/26/2016] [facility] 30Result Comment: [11/26/2016] [facility] 31Result Comment: [11/26/2016] [facility] 32Result Comment: [11/26/2016] [facility] 33Result Comment: [11/26/2016] [facility] 34Result Comment: [11/26/2016] [facility] 35Result Comment: [11/26/2016] [facility] Medications Flovent 110 mcg Inhaler HFA [...] Team Personnel Name: Margaux Vivas RN Position: [facility] RN Member Role: Primary Care Nurse Name: Live Leyva MD Position: [facility] Physician -Physician Practices Member Role: Lifetime Consulting Physician Name: Jeanmarie Lopez MD Position: [facility] Renal MD Member Role: Lifetime Consulting Physician Address: Address: [address] [place] [address], [address] [facility] [place], [place] [address] Name: Lashonda Clifford Position: [facility] Outreach Member Role: Lifetime Consulting Physician Name: Tiera Wadsworth RN Position: [facility] RN Member Role: Primary Care Nurse Name: Isaiah Angeles MD Position: [facility] Primary Care Physician Member Role: PCP Address: Address: [address] [place] [address]- Name: Annalise Lara RN Position: [facility] RN Member Role: Primary Care Nurse Name: Mark Wilkes MD Position: [facility] Renal MD Member Role: Lifetime Consulting Physician Address: Address: [address] [place] [address] [facility] [place] [address]- Name: Bibiana Treviño RN Position: S RN Member Role: Primary Care Nurse Care Team Related Persons Name: MIRA MILLER Address: [place] [phone] Name: MIRA MILLER Address: [place] [phone] Name: MIRA MILLER Address: [place] [phone] Name: MIRA MILLER Address: [place] [phone] Name: MIRA MILLER Address: [place] [phone] Name: MIRA MILLER Address: [place] [phone] Name: MIRA MILLER Address: [place] [id number] Name: PRATEEK MILLER Address: [address] [address] Name: BELEN MILLER Address: [address] [address] Name: BELEN MILLER Address: [address] [address]
--- OUTSIDE RECORDS SUMMARY | 2024-05-20 07:42 | XMS_ITS | Continuity of Care Document ---
Author Organization [facility] Ethan lt Address [address] [place] [address]- Care Team Providers Care Institute Scientist Name Role Phone Karthik HENLEY, Isaiah Douglas Primary Care Physician [place] [facility] [place] 05/01/21 - 05/31/21 [facility] Adult [address] [place] [address]- Allergies, Adverse Reactions, Alerts Substance Reaction Severity [...] Guardian Refuses 1Result Comment: [facility]-[id number] 2Location History: [facility] [place] 3Result Comment: [11/26/2016] [facility] 4Result Comment: [11/26/2016] [facility] 5Result Comment: [11/26/2016] [facility] 6Result Comment: [11/26/2016] [facility] 7Result Comment: [11/26/2016] [facility] 8Result Comment: [11/26/2016] [facility] 9Result Comment: [11/26/2016] [facility] 10Result Comment: [11/26/2016] [facility] 11Result Comment: [11/26/2016] [facility] 12Result Comment: [11/26/2016] [facility] 13Result Comment: [11/26/2016] [facility] 14Result Comment: [11/26/2016] [facility] 15Result Comment: [11/26/2016] [facility] 16Result Comment: [11/26/2016] [facility] 17Result Comment: [11/26/2016] [facility] 18Result Comment: [11/26/2016] [facility] 19Result Comment: [11/26/2016] [facility] 20Result Comment: [11/26/2016] [facility] 21Result Comment: [11/26/2016] [facility] 22Result Comment: [11/26/2016] [facility] 23Result Comment: [11/26/2016] [facility] 24Result Comment: [11/26/2016] [facility] 25Result Comment: [11/26/2016] [facility] 26Result Comment: [11/26/2016] [facility] 27Result Comment: [11/26/2016] [facility] 28Result Comment: [11/26/2016] [facility] 29Result Comment: [11/26/2016] [facility] 30Result Comment: [11/26/2016] [facility] 31Result Comment: [11/26/2016] [facility] 32Result Comment: [11/26/2016] [facility] 33Result Comment: [11/26/2016] [facility] Medications levothyroxine 125 mcg (0.125 mg) [...]
--- OUTSIDE RECORDS SUMMARY | 2024-05-20 07:42 | XMS_ITS | Continuity of Care Document ---
Author Organization [facility] Ethan lt Address [address] [place] [address]- Care Team Providers Care Graphics Specialist Name Role Phone Karthik HENLEY, Isaiah Douglas Primary Care Physician Encounter [facility] Date(s): 03/25/20 - 04/24/20 [facility] Adult [address] [place] [address]- [facility] Allergies, Adverse Reactions, Alerts Substance Reaction [...] Refuses 1Result Comment: [facility]-[id number] 2Location History: [facility] [place] 3Result Comment: [11/26/2016] [facility] 4Result Comment: [11/26/2016] [facility] 5Result Comment: [11/26/2016] [facility] 6Result Comment: [11/26/2016] [facility] 7Result Comment: [11/26/2016] [facility] 8Result Comment: [11/26/2016] [facility] 9Result Comment: [11/26/2016] [facility] 10Result Comment: [11/26/2016] [facility] 11Result Comment: [11/26/2016] [facility] 12Result Comment: [11/26/2016] [facility] 13Result Comment: [11/26/2016] [facility] 14Result Comment: [11/26/2016] [facility] 15Result Comment: [11/26/2016] [facility] 16Result Comment: [11/26/2016] [facility] 17Result Comment: [11/26/2016] [facility] 18Result Comment: [11/26/2016] [facility] 19Result Comment: [11/26/2016] [facility] 20Result Comment: [11/26/2016] [facility] 21Result Comment: [11/26/2016] [facility] 22Result Comment: [11/26/2016] [facility] 23Result Comment: [11/26/2016] [facility] 24Result Comment: [11/26/2016] [facility] 25Result Comment: [11/26/2016] [facility] 26Result Comment: [11/26/2016] [facility] 27Result Comment: [11/26/2016] [facility] 28Result Comment: [11/26/2016] [facility] 29Result Comment: [11/26/2016] [facility] 30Result Comment: [11/26/2016] [facility] 31Result Comment: [11/26/2016] [facility] 32Result Comment: [11/26/2016] [facility] 33Result Comment: [11/26/2016] [facility] Medications acetaminophen-oxyCODONE 325 mg-5 mg oral [...]
--- OUTSIDE RECORDS SUMMARY | 2024-05-20 07:42 | XMS_ITS | Continuity of Care Document ---
Author Organization [facility] Address [address] [place] [address]- Care Team Providers Care Inspector Conveyor Line Name Role Phone Karthik HENLEY, Isaiah Douglas Primary Care Physician Encounter [facility] Date(s): 10/23/21 - 11/22/21 [facility] [place] [address] [place] [address]- Allergies, Adverse Reactions, Alerts Substance Reaction Severity [...] Refuses 1Result Comment: [facility]-[id number] 2Location History: [facility] [place] 3Result Comment: [11/26/2016] [facility] 4Result Comment: [11/26/2016] [facility] 5Result Comment: [11/26/2016] [facility] 6Result Comment: [11/26/2016] [facility] 7Result Comment: [11/26/2016] [facility] 8Result Comment: [11/26/2016] [facility] 9Result Comment: [11/26/2016] [facility] 10Result Comment: [11/26/2016] [facility] 11Result Comment: [11/26/2016] [facility] 12Result Comment: [11/26/2016] [facility] 13Result Comment: [11/26/2016] [facility] 14Result Comment: [11/26/2016] [facility] 15Result Comment: [11/26/2016] [facility] 16Result Comment: [11/26/2016] [facility] 17Result Comment: [11/26/2016] [facility] 18Result Comment: [11/26/2016] [facility] 19Result Comment: [11/26/2016] [facility] 20Result Comment: [11/26/2016] [facility] 21Result Comment: [11/26/2016] [facility] 22Result Comment: [11/26/2016] [facility] 23Result Comment: [11/26/2016] [facility] 24Result Comment: [11/26/2016] [facility] 25Result Comment: [11/26/2016] [facility] 26Result Comment: [11/26/2016] [facility] 27Result Comment: [11/26/2016] [facility] 28Result Comment: [11/26/2016] [facility] 29Result Comment: [11/26/2016] [facility] 30Result Comment: [11/26/2016] [facility] 31Result Comment: [11/26/2016] [facility] 32Result Comment: [11/26/2016] [facility] 33Result Comment: [11/26/2016] [facility] lidocaine 4% topical film 1 [...]
--- OUTSIDE RECORDS SUMMARY | 2024-05-20 07:42 | XMS_ITS | Continuity of Care Document ---
Author Organization [facility] Ethan lt Address [address] [place] [address]- Care Team Providers Care Shrink Pit Operator Name Role Phone Karthik HENLEY, Isaiah Douglas Primary Care Physician En[facility] [place] Date(s): 12/08/20 - 01/07/21 [facility] Adult [address] [place] [address]- Allergies, Adverse Reactions, Alerts Substance Reaction Severity [...] Parent Or Guardian Refuses 1Result Comment: [facility]-[id number] 2Location History: [facility] [place] 3Result Comment: [11/26/2016] [facility] 4Result Comment: [11/26/2016] [facility] 5Result Comment: [11/26/2016] [facility] 6Result Comment: [11/26/2016] [facility] 7Result Comment: [11/26/2016] [facility] 8Result Comment: [11/26/2016] [facility] 9Result Comment: [11/26/2016] [facility] 10Result Comment: [11/26/2016] [facility] 11Result Comment: [11/26/2016] [facility] 12Result Comment: [11/26/2016] [facility] 13Result Comment: [11/26/2016] [facility] 14Result Comment: [11/26/2016] [facility] 15Result Comment: [11/26/2016] [facility] 16Result Comment: [11/26/2016] [facility] 17Result Comment: [11/26/2016] [facility] 18Result Comment: [11/26/2016] [facility] 19Result Comment: [11/26/2016] [facility] 20Result Comment: [11/26/2016] [facility] 21Result Comment: [11/26/2016] [facility] 22Result Comment: [11/26/2016] [facility] 23Result Comment: [11/26/2016] [facility] 24Result Comment: [11/26/2016] [facility] 25Result Comment: [11/26/2016] [facility] 26Result Comment: [11/26/2016] [facility] 27Result Comment: [11/26/2016] [facility] 28Result Comment: [11/26/2016] [facility] 29Result Comment: [11/26/2016] [facility] 30Result Comment: [11/26/2016] [facility] 31Result Comment: [11/26/2016] [facility] 32Result Comment: [11/26/2016] [facility] 33Result Comment: [11/26/2016] [facility] Medications lidocaine 4% topical film 1 [...]
--- OUTSIDE RECORDS SUMMARY | 2024-05-20 07:42 | XMS_ITS | Continuity of Care Document ---
Author Organization [facility] Ethan lt Address [address] [place] [address]- Care Team Providers Care Telesales Manager Name Role Phone Karthik HENLEY, Isaiah Douglas Primary Care Physician [phone] Encounter [facility] Date(s): 03/21/21 - 04/20/21 [facility] [address] [place] [address]- Allergies, Adverse Reactions, Alerts Substance Reaction Severity [...] Guardian Refuses 1Result Comment: [facility]-[id number] 2Location History: [facility] [place] 3Result Comment: [11/26/2016] [facility] 4Result Comment: [11/26/2016] [facility] 5Result Comment: [11/26/2016] [facility] 6Result Comment: [11/26/2016] [facility] 7Result Comment: [11/26/2016] [facility] 8Result Comment: [11/26/2016] [facility] 9Result Comment: [11/26/2016] [facility] 10Result Comment: [11/26/2016] [facility] 11Result Comment: [11/26/2016] [facility] 12Result Comment: [11/26/2016] [facility] 13Result Comment: [11/26/2016] [facility] 14Result Comment: [11/26/2016] [facility] 15Result Comment: [11/26/2016] [facility] 16Result Comment: [11/26/2016] [facility] 17Result Comment: [11/26/2016] [facility] 18Result Comment: [11/26/2016] [facility] 19Result Comment: [11/26/2016] [facility] 20Result Comment: [11/26/2016] [facility] 21Result Comment: [11/26/2016] [facility] 22Result Comment: [11/26/2016] [facility] 23Result Comment: [11/26/2016] [facility] 24Result Comment: [11/26/2016] [facility] 25Result Comment: [11/26/2016] [facility] 26Result Comment: [11/26/2016] [facility] 27Result Comment: [11/26/2016] [facility] 28Result Comment: [11/26/2016] [facility] 29Result Comment: [11/26/2016] [facility] 30Result Comment: [11/26/2016] [facility] 31Result Comment: [11/26/2016] [facility] 32Result Comment: [11/26/2016] [facility] 33Result Comment: [11/26/2016] [facility] Medications levothyroxine 125 mcg (0.125 mg) [...]
--- OUTSIDE RECORDS SUMMARY | 2024-05-20 07:42 | XMS_ITS | Continuity of Care Document ---
Author Organization [facility] Ethan lt Address [address] [place] [address]- Care Team Providers Care Washing Machine Mechanic Name Role Phone Karthik HENLEY, Isaiah Douglas Primary Care Physician [place] [facility] [place](s): 11/29/21 - 12/29/21 [facility] Adult [address] [place] [address]- Allergies, Adverse Reactions, Alerts Substance Reaction Severity [...] Parent Or Guardian Refuses 1Result Comment: [facility]-[id number] 2Location History: [facility] [place] 3Result Comment: [11/26/2016] [facility] 4Result Comment: [11/26/2016] [facility] 5Result Comment: [11/26/2016] [facility] 6Result Comment: [11/26/2016] [facility] 7Result Comment: [11/26/2016] [facility] 8Result Comment: [11/26/2016] [facility] 9Result Comment: [11/26/2016] [facility] 10Result Comment: [11/26/2016] [facility] 11Result Comment: [11/26/2016] [facility] 12Result Comment: [11/26/2016] [facility] 13Result Comment: [11/26/2016] [facility] 14Result Comment: [11/26/2016] [facility] 15Result Comment: [11/26/2016] [facility] 16Result Comment: [11/26/2016] [facility] 17Result Comment: [11/26/2016] [facility] 18Result Comment: [11/26/2016] [facility] 19Result Comment: [11/26/2016] [facility] 20Result Comment: [11/26/2016] [facility] 21Result Comment: [11/26/2016] [facility] 22Result Comment: [11/26/2016] [facility] 23Result Comment: [11/26/2016] [facility] 24Result Comment: [11/26/2016] [facility] 25Result Comment: [11/26/2016] [facility] 26Result Comment: [11/26/2016] [facility] 27Result Comment: [11/26/2016] [facility] 28Result Comment: [11/26/2016] [facility] 29Result Comment: [11/26/2016] [facility] 30Result Comment: [11/26/2016] [facility] 31Result Comment: [11/26/2016] [facility] 32Result Comment: [11/26/2016] [facility] 33Result Comment: [11/26/2016] [facility] Medications calcium (as carbonate) 500 mg [...]
--- OUTSIDE RECORDS SUMMARY | 2024-05-20 07:42 | XMS_ITS | Continuity of Care Document ---
Author Organization [facility] ter Address [address] [place] [id number]- Care Team Providers Care Gas Maker Helper Name Role Phone Karthik HENLEY, Isaiah Douglas Primary Care Physician Encounter [facility] [id number] Date(s): 04/05/22 - 04/06/[address] [address]- Encounter Diagnosis Acute anaphylaxis(Final) - 04/05/22 Discharge Disposition: A-D/C Home Attending Physician: Rohit Castañeda MD Admitting Physician: Crispin Espino MD Referring Physician: Not on Staff, Referring [...] Refuses 1Result Comment: [facility]-[id number] 2Location History: [facility] [place] 3Result Comment: [11/26/2016] [facility] 4Result Comment: [11/26/2016] [facility] 5Result Comment: [11/26/2016] [facility] 6Result Comment: [11/26/2016] [facility] 7Result Comment: [11/26/2016] [facility] 8Result Comment: [11/26/2016] [facility] 9Result Comment: [11/26/2016] [facility] 10Result Comment: [11/26/2016] [facility] 11Result Comment: [11/26/2016] [facility] 12Result Comment: [11/26/2016] [facility] 13Result Comment: [11/26/2016] [facility] 14Result Comment: [11/26/2016] [facility] 15Result Comment: [11/26/2016] [facility] 16Result Comment: [11/26/2016] [facility] 17Result Comment: [11/26/2016] [facility] 18Result Comment: [11/26/2016] [facility] 19Result Comment: [11/26/2016] [facility] 20Result Comment: [11/26/2016] [facility] 21Result Comment: [11/26/2016] [facility] 22Result Comment: [11/26/2016] [facility] 23Result Comment: [11/26/2016] [facility] 24Result Comment: [11/26/2016] [facility] 25Result Comment: [11/26/2016] [facility] 26Result Comment: [11/26/2016] [facility] 27Result Comment: [11/26/2016] [facility] 28Result Comment: [11/26/2016] [facility] 29Result Comment: [11/26/2016] [facility] 30Result Comment: [11/26/2016] [facility] 31Result Comment: [11/26/2016] [facility] 32Result Comment: [11/26/2016] [facility] 33Result Comment: [11/26/2016] [facility] Medications calcium (as carbonate) 500 mg oral tablet, chewable 1 tablet = 500 mg, Chew, Daily, # 150 tablet, 0 Refills, Maintenance, 11/28/21 16:18:00 EDT, Chew Tablet, Partial fill upon patient request if the prescription is for a schedule II opioid drug. Start Date: 11/28/21 Status: Ordered Flovent 110 mcg Inhaler HFA [...] drug. Start Date: 04/05/22 Status: Ordered levothyroxine 0.088 mg oral tablet = 188 mcg, By Mouth, Daily, TAKE ONE TABLET BY MOUTH DAILY (100 +88 MCG TOTAL 188 MCG DAILY) Start Date: 04/05/22 Status: Ordered lidocaine 4% topical film 1 [...] opioid drug. Start Date: 02/03/21 Status: Ordered lisinopril 5 mg oral tablet [...] opioid drug. Start Date: 04/05/22 Status: Ordered Nature's Bounty Probiotic oral tablet 1 tablet, By Mouth, Daily, 0 Refills, Maintenance, 11/28/21 16:19:00 EDT, Partial fill upon patientrequest if the prescription is for a schedule II opioid drug. Start Date: 11/28/21 Status: Ordered Nurtec ODT 75 mg oral tablet, disintegrating PLACE ONE TABLET BY MOUTH EVERY OTHER DAY Start Date: 04/05/22 Status: Ordered pantoprazole 40 mg oral delayed release tablet 1 tablet = 40 mg, By Mouth, 2 times a day, # 60 tablet, 0 Refills, Maintenance, 11/28/21 16:17:00 EDT, CR Tablet Start Date: 11/28/21 Status: Ordered pantoprazole 40 mg oral delayed release tablet 1 tablet = 40 mg, By Mouth, Daily, # 30 tablet, 0 Refills, Maintenance, 04/05/22 17:18:00 EDT, EC Tablet Start Date: 04/05/22 Status: Ordered predniSONE 50 mg oral tablet 1 tablet = 50 mg, By Mouth, Daily, # 3 tablet, 0 Refills, Maintenance, 04/06/22 9:32:00 EDT, Tablet, [facility], Partial fill upon patient request if the prescription is for a schedule II opioid drug., 63.5, kg, 04/05/22 9:13:00 EDT, . Start Date: 04/06/22 Status: Ordered Xifaxan 550 mg oral tablet [...] Active Vitamin D deficiency(Confirmed) Active 1Thoracic Results Radiology Reports * Exam Date Time Procedure Performing Provider Status 04/05/22 1:00 PM Chest Portable Maite Lemos; Au th (Verified) Notes: (Chest Portable) Reason For Exam: Shortness of Breath RESULT: Chest Portable Chest Portable Hx of Present Illness: Shortness of breath. COMPARISON: None. FINDINGS: LINES AND TUBES: None. LUNGS AND PLEURA: Low lung volumes with mild basilar atelectasis. Lungs are otherwise clear with no consolidation. No pleural effusion. No pneumothorax. HEART, MEDIASTINUM AND VINAY: Heart is normal in size. Normal upper mediastinal and hilar contour. BONES AND SOFT TISSUES: No acute abnormality. IMPRESSION: No acute abnormality. WSN: [id number] Ordering Physician: Son Goodwin Dictated By: Diaz Resendez MD Dictated Date/Time: 04/05/22 1:02 pm Reviewed By: Diaz Resendez MD Signed By: Diaz Resendez MD Signed Date/Time: 04/05/22 1:02 pm Transcribed By: ABAD Transcribed Date/Time: 04/05/22 1:01 pm Vital Signs Most recent to oldest [Reference Range]: 1 2 3 Oxygen Saturation [94-100 %] 98 % (04/06/22 9:22 AM) 98 % (04/06/22 7:31 AM) 97 % (04/06/22 5:55 AM) Pulse Rate [55-90 bpm] 71 bpm (04/06/22 9:22 AM) 88 bpm (04/06/22 7:31 AM) 72 bpm (04/06/22 5:55 AM) Blood Pressure [90-138/55-84 mm Hg] 130/95mm Hg (04/06/22 9:22 AM) 136/106mm Hg (04/06/22 7:31 AM) 126/97mm Hg (04/06/22 5:55 AM) Respiratory Rate [16-30 br/min] 13 br/min *L* (04/06/22 9:22 AM) 20 br/min (04/06/22 7:31 AM) 14 br/min *L* (04/06/22 5:55 AM) Temperature [96.8-100.4 DegF] 98 DegF (04/06/22 9:22 AM) 98.4 DegF (04/06/22 7:31 AM) 98.3 DegF (04/05/22 9:54 PM) Mode of Delivery (Oxygen) Room air (04/06/22 9:22 AM) Room air (04/06/22 7:31 AM) Room air (04/06/22 5:55 AM) Blood pressure sites Arm, right (04/06/22 9:22 AM) Arm, left (04/06/22 3:22 AM) Arm, left (04/06/22 1:03 AM) Temperature Route Oral (04/06/22 9:22 AM) Oral (04/06/22 7:31 AM) Oral (04/05/22 9:54 PM) Social History Social History Type Response Smoking Status Never smoker entered on: 10/24/17 Sex
--- OUTSIDE RECORDS SUMMARY | 2024-05-20 07:42 | XMS_ITS | Continuity of Care Document ---
Author Organization [facility] al Address [address] [place] [address]- Care Team Providers Care Coloring Machine Operator Name Role Phone Karthik HENLEY, Isaiah Douglas Primary Care Physician Encounter [facility] Date(s): 05/12/20 - 05/12/[address] [address]- [facility] Discharge Disposition: A-D/C Home Attending Physician: Dao Duval DO Admitting Physician: Dao Duval DO Referring Physician: Not on Staff, Referring [...] Guardian Refuses 1Result Comment: [facility]-[id number] 2Location History: [facility] [place] 3Result Comment: [11/26/2016] [facility] 4Result Comment: [11/26/2016] [facility] 5Result Comment: [11/26/2016] [facility] 6Result Comment: [...] [facility] 33Result Comment: [11/26/2016] [facility] Medications Flovent HFA 110 mcg/inh inhalation [...] Maintenance, 02/26/20 12:05:00 EDT, Tablet, [facility], 153, cm, 02/26/20 12:03:00 EDT, Height, 62, kg, 01/02/20 11:03:00 EDT, Dry Weight Start Date: 02/26/20 Status: Ordered lisinopril 20 mg oral tablet 20 mg, 1, tablet, By Mouth, Daily, # 30 tablet, Refills 0, Tot. Refills 0, Maintenance, 05/05/20 7:46:00 EDT, Route to Pharmacy Electronically, [facility], 153, cm, 05/05/20 7:32:00 EDT, [...] Range]: 1 2 3 Height 153 cm (05/12/20 1:07 PM) 153 cm (05/12/20 12:20 PM) Weight 59.5 kg (05/12/20 1:07 PM) 59.5 kg (05/12/20 12:20 PM) Oxygen Saturation [94-100 %] 98 % (05/12/20 6:12 PM) 100 % (05/12/20 1:07 PM) 100 % (05/12/20 12:20 PM) Pulse Rate [55-90 bpm] 70 bpm (05/12/20 6:12 PM) 85 bpm (05/12/20 1:07 PM) 87 bpm (05/12/20 12:20 PM) Body Mass Index [18.5-24.99] 25.42 *H* (05/12/20 1:07 PM) Blood Pressure [90-138/55-84 mm Hg] 110/80mm Hg (05/12/20 6:12 PM) 108/76mm Hg (05/12/20 1:07 PM) 120/84mm Hg (05/12/20 12:20 PM) Respiratory Rate [16-30 br/min] 19 br/min (05/12/20 6:12 PM) 15 br/min *L* (05/12/20 1:07 PM) 18 br/min (05/12/20 12:20 PM) Mode of Delivery (Oxygen) Room air (05/12/20 6:12 PM) Room air (05/12/20 1:07 PM) Room air (05/12/20 12:20 PM) Blood pressure sites Arm, right (05/12/20 6:12 PM) Arm, left (05/12/20 1:07 PM) Dry Weight 59.5 kg (05/12/20 1:07 PM) 59.5 kg (05/12/20 12:20 PM) Social History Social History Type Response Smoking Status Never smoker entered on: 10/24/17 Sex
--- OUTSIDE RECORDS SUMMARY | 2024-05-20 07:42 | XMS_ITS | Continuity of Care Document ---
Author Organization [facility] lt Address [address] [place] [address]- Care Team Providers Care Vmware Consultant Name Role Phone Karthik HENLEY, Isaiah Douglas Primary Care Physician Encounter [facility] Date(s): 05/08/21 - 06/07/21 [facility] Adult [address] [place] [address]- Attending Physician: Admthelma, Charles8 Admitting Physician: Admtr, Ar8 Referring Physician: [...] Guardian Refuses 1Result Comment: [facility]-[id number] 2Location History: [facility] [place] 3Result Comment: [11/26/2016] [facility] 4Result Comment: [11/26/2016] [facility] 5Result Comment: [11/26/2016] [facility] 6Result Comment: [11/26/2016] [facility] 7Result Comment: [11/26/2016] [facility] 8Result Comment: [11/26/2016] [facility] 9Result Comment: [11/26/2016] [facility] 10Result Comment: [11/26/2016] [facility] 11Result Comment: [11/26/2016] [facility] 12Result Comment: [11/26/2016] [facility] 13Result Comment: [11/26/2016] [facility] 14Result Comment: [11/26/2016] [facility] 15Result Comment: [11/26/2016] [facility] 16Result Comment: [11/26/2016] [facility] 17Result Comment: [11/26/2016] [facility] 18Result Comment: [11/26/2016] [facility] 19Result Comment: [11/26/2016] [facility] 20Result Comment: [11/26/2016] [facility] 21Result Comment: [11/26/2016] [facility] 22Result Comment: [11/26/2016] [facility] 23Result Comment: [11/26/2016] [facility] 24Result Comment: [11/26/2016] [facility] 25Result Comment: [11/26/2016] [facility] 26Result Comment: [11/26/2016] [facility] 27Result Comment: [11/26/2016] [facility] 28Result Comment: [11/26/2016] [facility] 29Result Comment: [11/26/2016] [facility] 30Result Comment: [11/26/2016] [facility] 31Result Comment: [11/26/2016] [facility] 32Result Comment: [11/26/2016] [facility] 33Result Comment: [11/26/2016] [facility] Medications levothyroxine 125 mcg (0.125 mg) [...]
--- OUTSIDE RECORDS SUMMARY | 2024-05-20 07:42 | XMS_ITS | Continuity of Care Document ---
Author Organization [facility] Address [address] [place] [address]- Care Team Providers Care Computer Patternmaker Name Role Phone Karthik HENLEY, Isaiah Douglas Primary Care Physician [phone] Encounter [facility] Date(s): 04/12/22 - 05/12/22 [facility] [address] [place] [address] Allergies, Adverse Reactions, Alerts Substance [...] Or Guardian Refuses 1Result Comment: [facility]-[id number] 2Location History: [facility] [place] 3Result Comment: [11/26/2016] [facility] 4Result Comment: [11/26/2016] [facility] 5Result Comment: [11/26/2016] [facility] 6Result Comment: [11/26/2016] [facility] 7Result Comment: [11/26/2016] [facility] 8Result Comment: [11/26/2016] [facility] 9Result Comment: [11/26/2016] [facility] 10Result Comment: [11/26/2016] [facility] 11Result Comment: [11/26/2016] [facility] 12Result Comment: [11/26/2016] [facility] 13Result Comment: [11/26/2016] [facility] 14Result Comment: [11/26/2016] [facility] 15Result Comment: [11/26/2016] [facility] 16Result Comment: [11/26/2016] [facility] 17Result Comment: [11/26/2016] [facility] 18Result Comment: [11/26/2016] [facility] 19Result Comment: [11/26/2016] [facility] 20Result Comment: [11/26/2016] [facility] 21Result Comment: [11/26/2016] [facility] 22Result Comment: [11/26/2016] [facility] 23Result Comment: [11/26/2016] [facility] 24Result Comment: [11/26/2016] [facility] 25Result Comment: [11/26/2016] [facility] 26Result Comment: [11/26/2016] [facility] 27Result Comment: [11/26/2016] [facility] 28Result Comment: [11/26/2016] [facility] 29Result Comment: [11/26/2016] [facility] 30Result Comment: [11/26/2016] [facility] 31Result Comment: [11/26/2016] [facility] 32Result Comment: [11/26/2016] [facility] 33Result Comment: [11/26/2016] [facility] Medications Flovent 110 mcg Inhaler HFA [...] Personnel Name: Isaiah Angeles MD Address: [address] [place] [id number]
--- OUTSIDE RECORDS SUMMARY | 2024-05-20 07:42 | XMS_ITS | Continuity of Care Document ---
Author Organization [facility] Address [address] [place] [address]- Care Team Providers Care Manager Pest Name Role Phone Karthik HENLEY, Isaiah Douglas Primary Care Physician [phone] Encounter [facility] Date(s): 01/03/23 - 02/02/23 [facility] [address] [place] [address] Allergies, Adverse Reactions, Alerts Substance Reaction Severity Status codeine 1 Surgical adhesive ta pe itching Active Adhesive Bandage 2 Rash Active riTUXimab 3 Severe Active 1hives 2surgical tape allergy as per family 3developed anaphylaxis with throat closure sensation and facial swelling needed brief epinephrine drip Immunizations Given and Recorded Vaccine Date Status Refusal Reason tetanus-diphtheria toxoids (Td) 1 08/15/22 Given [id number] bivalent booster vax 07/05/22 Recorded influenza virus [...] Given Parent Or Guardian Refuses 1Result Comment: [id number] 2Result Comment: [facility] [place] 3Result Comment: [facility]-[id number] 4Location History: [facility] [place] 5Result Comment: [11/26/2016] [facility] 6Result Comment: [11/26/2016] [facility] 7Result Comment: [11/26/2016] [facility] 8Result Comment: [11/26/2016] [facility] 9Result Comment: [11/26/2016] [facility] 10Result Comment: [11/26/2016] [facility] 11Result Comment: [11/26/2016] [facility] 12Result Comment: [11/26/2016] [facility] 13Result Comment: [11/26/2016] [facility] 14Result Comment: [11/26/2016] [facility] 15Result Comment: [11/26/2016] [facility] 16Result Comment: [11/26/2016] [facility] 17Result Comment: [11/26/2016] [facility] 18Result Comment: [11/26/2016] [facility] 19Result Comment: [11/26/2016] [facility] 20Result Comment: [11/26/2016] [facility] 21Result Comment: [11/26/2016] [facility] 22Result Comment: [11/26/2016] [facility] 23Result Comment: [11/26/2016] [facility] 24Result Comment: [11/26/2016] [facility] 25Result Comment: [11/26/2016] [facility] 26Result Comment: [11/26/2016] [facility] 27Result Comment: [11/26/2016] [facility] 28Result Comment: [11/26/2016] [facility] 29Result Comment: [11/26/2016] [facility] 30Result Comment: [11/26/2016] [facility] 31Result Comment: [11/26/2016] [facility] 32Result Comment: [11/26/2016] [facility] 33Result Comment: [11/26/2016] [facility] 34Result Comment: [11/26/2016] [facility] 35Result Comment: [11/26/2016] [facility] Medications cholecalciferol 50 mcg (2000 intl [...] Team Personnel Name: Margaux Vivas RN Position: [facility] RN Member Role: Primary Care Nurse Name: Live Leyva MD Position: [facility] Physician -Physician Practices Member Role: Lifetime Consulting Physician Name: Jeanmarie Lopez MD Position: [facility] Renal MD Member Role: Lifetime Consulting Physician Address: Address: [address] [place] [address], [facility] [address] [facility] [place], [place] [address] Name: Lashonda Clifford Position: [facility] Outreach Member Role: Lifetime Consulting Physician Name: Isaiah Angeles MD Position: [facility] Physician - Primary Care Member Role: PCP Address: Address: [address] [place] [address]- Name: Annalise Lara RN Position: [facility] RN Member Role: Primary Care Nurse Name: Mark Wilkes MD Position: [facility] Renal MD Member Role: Lifetime Consulting Physician Address: Address: [address] [place] [address] [facility] [place] [address]- Name: Bibiana Treviño RN Position: [facility] RN Member Role: Primary Care Nurse Care Team Related Persons Name: MIRA IMLLER Address: home [address] [place] [phone] Name: MIRA MILLER Address: home [address] [id number] Name: MIRA MILLER Address: [address] [phone] Name: MIRA MILLER Address: [address] [id number] Name: MIRA MILLER Address: [address] [phone] Name: MIRA MILLER Address: [address] [phone] Name: MIRA MILLER Address: [address] [phone] Name: PRATEEK MILLER Address: [address] [address] Name: BELEN MILLER Address: [address] [address] Name: BELEN MILLER Address: [address] [address]
--- OUTSIDE RECORDS SUMMARY | 2024-05-20 07:42 | XMS_ITS | Continuity of Care Document ---
Author Organization [facility] Address [address] [place] [address]- Care Team Providers Care Fish Straightener Name Role Phone Karthik HENLEY, Isaiah Douglas Primary Care Physician Encounter [facility] Date(s): 08/22/20 - 09/21/20 [facility] Adult [address] [place] [address]- Allergies, Adverse Reactions, Alerts Substance Reaction Severity [...] Guardian Refuses 1Result Comment: [facility]-[id number] 2Location History: [facility] [place] 3Result Comment: [11/26/2016] [facility] 4Result Comment: [11/26/2016] [facility] 5Result Comment: [11/26/2016] [facility] 6Result Comment: [11/26/2016] [facility] 7Result Comment: [11/26/2016] [facility] 8Result Comment: [11/26/2016] [facility] 9Result Comment: [11/26/2016] [facility] 10Result Comment: [11/26/2016] [facility] 11Result Comment: [11/26/2016] [facility] 12Result Comment: [11/26/2016] [facility] 13Result Comment: [11/26/2016] [facility] 14Result Comment: [11/26/2016] [facility] 15Result Comment: [11/26/2016] [facility] 16Result Comment: [11/26/2016] [facility] 17Result Comment: [11/26/2016] [facility] 18Result Comment: [11/26/2016] [facility] 19Result Comment: [11/26/2016] [facility] 20Result Comment: [11/26/2016] [facility] 21Result Comment: [11/26/2016] [facility] 22Result Comment: [11/26/2016] [facility] 23Result Comment: [11/26/2016] [facility] 24Result Comment: [11/26/2016] [facility] 25Result Comment: [11/26/2016] [facility] 26Result Comment: [11/26/2016] [facility] 27Result Comment: [11/26/2016] [facility] 28Result Comment: [11/26/2016] [facility] 29Result Comment: [11/26/2016] [facility] 30Result Comment: [11/26/2016] [facility] 31Result Comment: [11/26/2016] [facility] 32Result Comment: [11/26/2016] [facility] 33Result Comment: [11/26/2016] [facility] Medications carvedilol 12.5 mg oral tablet [...]
--- OUTSIDE RECORDS SUMMARY | 2024-05-20 07:42 | XMS_ITS | Continuity of Care Document ---
Author Organization [facility] Address [address] [place] [address]- Care Team Providers Care [place] Man Name Role Phone Karthik HENLEY, Isaiah Douglas Primary Care Physician Encounter [facility] Date(s): 09/23/20 - 10/23/20 [facility] [address] [place] [id number] Attending Physician: Segundo Martinez Admitting Physician: AdmSegundo renee Referring Physician: Admtr Ar8 Allergies, Adverse Reactions, [...] Refuses 1Result Comment: [facility]-[id number] 2Location History: [facility] [place] 3Result Comment: [11/26/2016] [facility] 4Result Comment: [11/26/2016] [facility] 5Result Comment: [11/26/2016] [facility] 6Result Comment: [11/26/2016] [facility] 7Result Comment: [11/26/2016] [facility] 8Result Comment: [11/26/2016] [facility] 9Result Comment: [11/26/2016] [facility] 10Result Comment: [11/26/2016] [facility] 11Result Comment: [11/26/2016] [facility] 12Result Comment: [11/26/2016] [facility] 13Result Comment: [11/26/2016] [facility] 14Result Comment: [11/26/2016] [facility] 15Result Comment: [11/26/2016] [facility] 16Result Comment: [11/26/2016] [facility] 17Result Comment: [11/26/2016] [facility] 18Result Comment: [11/26/2016] [facility] 19Result Comment: [11/26/2016] [facility] 20Result Comment: [11/26/2016] [facility] 21Result Comment: [11/26/2016] [facility] 22Result Comment: [11/26/2016] [facility] 23Result Comment: [11/26/2016] [facility] 24Result Comment: [11/26/2016] [facility] 25Result Comment: [11/26/2016] [facility] 26Result Comment: [11/26/2016] [facility] 27Result Comment: [11/26/2016] [facility] 28Result Comment: [11/26/2016] [facility] 29Result Comment: [11/26/2016] [facility] 30Result Comment: [11/26/2016] [facility] 31Result Comment: [11/26/2016] [facility] 32Result Comment: [11/26/2016] [facility] 33Result Comment: [11/26/2016] [facility] Medications lidocaine 4% topical film 1 [...]
--- OUTSIDE RECORDS SUMMARY | 2024-05-20 07:42 | XMS_ITS | Continuity of Care Document ---
Author Organization [facility] Iain Ethan lt Address [address] [place] [address]- Care Team Providers Care Manager Emergency Department Name Role Phone Isaiah Angeles MD Primary Care Physician [place] [facility] [place] 09/15/19 - 09/22/19 [facility] Adult [address] [place] [address]- [facility] Encounter Diagnosis Viral syndrome(Discharge Diagnosis) - 09/22/19 Nephrotic syndrome(Discharge Diagnosis) - 09/22/19 Hypothyroidism(Discharge Diagnosis) - 09/22/19 Complex partial seizure(Discharge Diagnosis) - 09/22/19 Attending Physician: Isaiah Angeles MD Allergies, Adverse [...] 1Result Comment: [facility]-[id number] 2Location History: [facility] [place] 3Result Comment: [11/26/2016] [facility] 4Result Comment: [11/26/2016] [facility] 5Result Comment: [11/26/2016] [facility] 6Result Comment: [11/26/2016] [facility] 7Result Comment: [11/26/2016] [facility] 8Result Comment: [11/26/2016] [facility] 9Result Comment: [11/26/2016] [facility] 10Result Comment: [11/26/2016] [facility] 11Result Comment: [11/26/2016] [facility] 12Result Comment: [11/26/2016] [facility] 13Result Comment: [11/26/2016] [facility] 14Result Comment: [11/26/2016] [facility] 15Result Comment: [11/26/2016] [facility] 16Result Comment: [11/26/2016] [facility] 17Result Comment: [11/26/2016] [facility] 18Result Comment: [11/26/2016] [facility] 19Result Comment: [11/26/2016] [facility] 20Result Comment: [11/26/2016] [facility] 21Result Comment: [11/26/2016] [facility] 22Result Comment: [11/26/2016] [facility] 23Result Comment: [11/26/2016] [facility] 24Result Comment: [11/26/2016] [facility] 25Result Comment: [11/26/2016] [facility] 26Result Comment: [11/26/2016] [facility] 27Result Comment: [11/26/2016] [facility] 28Result Comment: [11/26/2016] [facility] 29Result Comment: [11/26/2016] [facility] 30Result Comment: [11/26/2016] [facility] 31Result Comment: [11/26/2016] [facility] 32Result Comment: [11/26/2016] [facility] 33Result Comment: [11/26/2016] [facility] Medications ferrous sulfate 325 mg oral [...] Effective Dates Health Status Clinical Service Informant Viral syndrome Discharge Diagnosis 09/22/19 Nephrotic syndrome Discharge Diagnosis 09/22/19 Hypothyroidism Discharge Diagnosis 09/22/19 Complex partial seizure Discharge Diagnosis 09/22/19 Vital Signs Most recent to oldest [Reference Range]: 1 Height 152.4 cm (09/15/19 3:49 PM) Weight 67.2 kg (09/15/19 3:49 PM) Oxygen Saturation [94-100 %] 99 % (09/15/19 3:49 PM) Pulse Rate [55-90 bpm] 99 bpm *H* (09/15/19 3:49 PM) Body Mass Index [18.5-24.99] 28.93 *H* (09/15/19 3:49 PM) Blood Pressure [90-138/55-84 mm Hg] 126/ 80mm Hg (09/15/19 3:49 PM) Temperature [96.8-100.4 DegF] 98.2 DegF (09/15/19 3:49 PM) Mode of Delivery (Oxygen) Room air (09/15/19 3:49 PM) Blood pressure sites Arm, right (09/15/19 3:49 PM) Temperature Route Oral (09/15/19 3:49 PM) Weight Obtained Via Standing scale (09/15/19 3:49 PM) Social History Social History Type Response Smoking Status Never smoker entered on: 10/24/17 Sex
--- OUTSIDE RECORDS SUMMARY | 2024-05-20 07:42 | XMS_ITS | Continuity of Care Document ---
Author Organization [facility] Ethan lt Address [address] [place] [address]- Care Team Providers Care Mental Health Unit Lead Psychologist Name Role Phone Karthik HENLEY, Isaiah Douglas Primary Care Physician Encounter [facility] Date(s): 03/16/21 - 04/15/21 [facility] Adult [address] [place] [address]- Allergies, Adverse Reactions, Alerts Substance Reaction Severity [...] Given Parent Or Guardian Refuses 1Result Comment: [facility]-[id number] 2Location History: [facility] [place] 3Result Comment: [11/26/2016] [facility] 4Result Comment: [11/26/2016] [facility] 5Result Comment: [11/26/2016] [facility] 6Result Comment: [11/26/2016] [facility] 7Result Comment: [11/26/2016] [facility] 8Result Comment: [11/26/2016] [facility] 9Result Comment: [11/26/2016] [facility] 10Result Comment: [11/26/2016] [facility] 11Result Comment: [11/26/2016] [facility] 12Result Comment: [11/26/2016] [facility] 13Result Comment: [11/26/2016] [facility] 14Result Comment: [11/26/2016] [facility] 15Result Comment: [11/26/2016] [facility] 16Result Comment: [11/26/2016] [facility] 17Result Comment: [11/26/2016] [facility] 18Result Comment: [11/26/2016] [facility] 19Result Comment: [11/26/2016] [facility] 20Result Comment: [11/26/2016] [facility] 21Result Comment: [11/26/2016] [facility] 22Result Comment: [11/26/2016] [facility] 23Result Comment: [11/26/2016] [facility] 24Result Comment: [11/26/2016] [facility] 25Result Comment: [11/26/2016] [facility] 26Result Comment: [11/26/2016] [facility] 27Result Comment: [11/26/2016] [facility] 28Result Comment: [11/26/2016] [facility] 29Result Comment: [11/26/2016] [facility] 30Result Comment: [11/26/2016] [facility] 31Result Comment: [11/26/2016] [facility] 32Result Comment: [11/26/2016] [facility] 33Result Comment: [11/26/2016] [facility] Medications levothyroxine 125 mcg (0.125 mg) [...]
--- OUTSIDE RECORDS SUMMARY | 2024-05-20 07:43 | XMS_ITS | Continuity of Care Document ---
Author Organization [facility] Address [address] [place] [address]- Care Team Providers Care Waiter/Waitress First Class Name Role Phone Karthik HENLEY, Isaiah Douglas Primary Care Physician [phone] Encounter [facility] Date(s): 04/05/21 - 05/05/21 [facility] [address] [place] [address]- Allergies, Adverse Reactions, Alerts Substance Reaction Severity [...] Guardian Refuses 1Result Comment: [facility]-[id number] 2Location History: [facility] [place] 3Result Comment: [11/26/2016] [facility] 4Result Comment: [11/26/2016] [facility] 5Result Comment: [11/26/2016] [facility] 6Result Comment: [11/26/2016] [facility] 7Result Comment: [11/26/2016] [facility] 8Result Comment: [11/26/2016] [facility] 9Result Comment: [11/26/2016] [facility] 10Result Comment: [11/26/2016] [facility] 11Result Comment: [11/26/2016] [facility] 12Result Comment: [11/26/2016] [facility] 13Result Comment: [11/26/2016] [facility] 14Result Comment: [11/26/2016] [facility] 15Result Comment: [11/26/2016] [facility] 16Result Comment: [11/26/2016] [facility] 17Result Comment: [11/26/2016] [facility] 18Result Comment: [11/26/2016] [facility] 19Result Comment: [11/26/2016] [facility] 20Result Comment: [11/26/2016] [facility] 21Result Comment: [11/26/2016] [facility] 22Result Comment: [11/26/2016] [facility] 23Result Comment: [11/26/2016] [facility] 24Result Comment: [11/26/2016] [facility] 25Result Comment: [11/26/2016] [facility] 26Result Comment: [11/26/2016] [facility] 27Result Comment: [11/26/2016] [facility] 28Result Comment: [11/26/2016] [facility] 29Result Comment: [11/26/2016] [facility] 30Result Comment: [11/26/2016] [facility] 31Result Comment: [11/26/2016] [facility] 32Result Comment: [11/26/2016] [facility] 33Result Comment: [11/26/2016] [facility] Medications levothyroxine 125 mcg (0.125 mg) [...]
--- OUTSIDE RECORDS SUMMARY | 2024-05-20 07:43 | XMS_ITS | Continuity of Care Document ---
Author Organization [facility] Iain Ethan lt Address [address] [place] [address]- Care Team Providers Care Lab Support Service Tech Name Role Phone Isaiah Angeles MD Primary Care Physician Encounter [facility] Date(s): 10/02/23 - 10/09/23 [facility] Adult [address] [place] [address]- Encounter Diagnosis Impacted cerumen of left ear(Discharge Diagnosis) - 10/05/23 Attending Physician: Isaiah Angeles MD Allergies, Adverse [...] corded tetanus-diphtheria toxoids (Td) 10 08/15/22 Given [id number] bivalent booster vax 07/05/22 Recorded SARS-CoV-2 (COVID-19) [...] Comment: [facility] [place] 2Result [facility]: [id number] 3Location History: [facility] [place] 4Result Comment: [11/26/2016] [facility] 5Result Comment: [11/26/2016] [facility] 6Result Comment: [11/26/2016] [facility] 7Result Comment: [11/26/2016] [facility] 8Result Comment: [11/26/2016] [facility] 9Result Comment: [11/26/2016] [facility] 10Result Comment: [id number] 11Result Comment: [11/26/2016] [facility] 12Result Comment: [11/26/2016] [facility] 13Result Comment: [11/26/2016] [facility] 14Result Comment: [11/26/2016] [facility] 15Result Comment: [11/26/2016] [facility] 16Result Comment: [11/26/2016] [facility] 17Result Comment: [11/26/2016] [facility] 18Result Comment: [11/26/2016] [facility] 19Result Comment: [11/26/2016] [facility] 20Result Comment: [11/26/2016] [facility] 21Result Comment: [11/26/2016] [facility] 22Result Comment: [11/26/2016] [facility] 23Result Comment: [11/26/2016] [facility] 24Result Comment: [11/26/2016] [facility] 25Result Comment: [11/26/2016] [facility] 26Result Comment: [11/26/2016] [facility] 27Result Comment: [11/26/2016] [facility] 28Result Comment: [11/26/2016] [facility] 29Result Comment: [11/26/2016] [facility] 30Result Comment: [11/26/2016] [facility] 31Result Comment: [11/26/2016] [facility] 32Result Comment: [11/26/2016] [facility] 33Result Comment: [11/26/2016] [facility] 34Result Comment: [11/26/2016] [facility] 35Result Comment: [11/26/2016] [facility] Medications Flovent 110 mcg Inhaler HFA [...] Dates Health Status Cl inical Service Informant Impacted cerumen of left ear Discharge Diagnosis 10/05/23 Vital Signs Most recent to oldest [Reference Range]: 1 Height 152 cm (10/02/23 2:54 PM) Weight 66.5 kg (10/02/23 2:54 PM) Oxygen Saturation [94-100 %] 100 % (10/02/23 2:54 PM) Pulse Rate [55-90 bpm] 72 bpm (10/02/23 2:54 PM) Body Mass Index [18.5-24.99 kg/m2] 28.78 kg/m2 *H* (10/02/23 2:54 PM) Blood Pressure [90-138/55-84 mm Hg] 123/ 84mm Hg (10/02/23 2:54 PM) Temperature [96.8-100.4 DegF] 98.6 DegF (10/02/23 2:54 PM) Blood pressure sites Arm, left (10/02/23 2:54 PM) Temperature Route Oral (10/02/23 2:54 PM) Weight Obtained Via Standing scale (10/02/23 2:54 PM) Social History Social History Type Response Smoking Status Never smoker entered on: 10/24/17 Sex Patient Care team information Care Team Personnel Name: Live Leyva MD Position: [facility] Physician -Physician Practices Member Role: Lifetime Consulting Physician Name: Jeanmarie Lopez MD Position: [facility] Renal MD Member Role: Lifetime Consulting Physician Address: Address: [address] [place], [place] [id number] [place] [address]- Name: Lashonda Clifford Position: [facility] Outreach Member Role: Lifetime Consulting Physician Name: Tiera Wadsworth RN Position: [facility] RN Member Role: Primary Care Nurse Name: Isaiah Angeles MD Position: [facility] Physician - Primary Care Member Role: PCP Address: Address: [address] [place] [address]- [place] Name: Annalise Lara RN Position: [facility] RN Member Role: Primary Care Nurse Name: Mark Wilkes MD Position: [facility] Renal MD Member Role: Lifetime Consulting Physician Address: Address: [address] [place] [address] [facility] [place] [address]- [place] Name: Bibiana Treviño RN Position: [facility] RN Member Role: Primary Care Nurse Care Team Related Persons Name: MIRA MILLER Address: home [address] [id number] Name: MIRA MILLER Address: [place] Address: home [address] [place] [id number] [place] Name: PRATEEK MILLER Address: home [address] [place] [address] Name: BELEN MILLER Address: home [address] [place] [address] Name: BELEN MILLER Address: home [address] [place] [address]
--- OUTSIDE RECORDS SUMMARY | 2024-05-20 07:43 | XMS_ITS | Continuity of Care Document ---
Author Organization [facility] Iain Ethan lt Address [address] [place] [address]- Care Team Providers Care Commercial Baking Teacher Name Role Phone Karthik HENLEY, Isaiah Douglas Primary Care Physician Encounter [facility] Date(s): 05/13/20 - 06/12/20 [facility] Adult [address] [place] [address]- [facility] Allergies, Adverse Reactions, Alerts Substance [...] Or Guardian Refuses 1Result Comment: [facility]-[id number] 2Location History: [facility] [place] 3Result Comment: [11/26/2016] [facility] 4Result Comment: [11/26/2016] [facility] 5Result Comment: [11/26/2016] [facility] 6Result Comment: [11/26/2016] [facility] 7Result Comment: [11/26/2016] [facility] 8Result Comment: [11/26/2016] [facility] 9Result Comment: [11/26/2016] [facility] 10Result Comment: [11/26/2016] [facility] 11Result Comment: [11/26/2016] [facility] 12Result Comment: [11/26/2016] [facility] 13Result Comment: [11/26/2016] [facility] 14Result Comment: [11/26/2016] [facility] 15Result Comment: [11/26/2016] [facility] 16Result Comment: [11/26/2016] [facility] 17Result Comment: [11/26/2016] [facility] 18Result Comment: [11/26/2016] [facility] 19Result Comment: [11/26/2016] [facility] 20Result Comment: [11/26/2016] [facility] 21Result Comment: [11/26/2016] [facility] 22Result Comment: [11/26/2016] [facility] 23Result Comment: [11/26/2016] [facility] 24Result Comment: [11/26/2016] [facility] 25Result Comment: [11/26/2016] [facility] 26Result Comment: [11/26/2016] [facility] 27Result Comment: [11/26/2016] [facility] 28Result Comment: [11/26/2016] [facility] 29Result Comment: [11/26/2016] [facility] 30Result Comment: [11/26/2016] [facility] 31Result Comment: [11/26/2016] [facility] 32Result Comment: [11/26/2016] [facility] 33Result Comment: [11/26/2016] [facility] Medications Flovent HFA 110 mcg/inh inhalation [...] 4 Refills, Maintenance, 02/26/20 12:05:00 EDT, Tablet, [facility], 153, cm, 02/26/20 12:03:00 EDT, Height, 62, kg, 01/02/20 11:03:00 EDT, Dry Weight Start Date: 02/26/20 Status: Ordered lisinopril 20 mg oral tablet 20 mg, 1, tablet, By Mouth, Daily, # 30 tablet, Refills 0, Tot. Refills 0, Maintenance, 05/05/20 7:46:00 EDT, Route to Pharmacy Electronically, [facility], 153, cm, 05/05/20 7:32:00 EDT, [...]
--- OUTSIDE RECORDS SUMMARY | 2024-05-20 07:43 | XMS_ITS | Continuity of Care Document ---
Author Organization [facility] Ethan lt Address [address] [place] [address]- Care Team Providers Care Statement Services Representative Name Role Phone Karthik HENLEY, Isaiah Douglas Primary Care Physician [phone] Encounter [facility] Date(s): 01/28/23 - 02/27/23 [facility] Adult [address] [place] [address]- Allergies, Adverse Reactions, Alerts Substance Reaction Severity Status Adhesive Bandage 1 Rash Active riTUXimab 2 Severe Active codeine 3 Surgical adhesive ta pe itching Active 1surgical tape allergy as per family 2developed anaphylaxis with throat closure sensation and facial swelling needed brief epinephrine drip 3hives Immunizations Given and Recorded Vaccine Date Status Refusal Reason tetanus-diphtheria toxoids (Td) 1 08/15/22 Given [id number] bivalent booster vax 07/05/22 Recorded influenza virus [...] Given Parent Or Guardian Refuses 1Result Comment: [id number] 2Result Comment: [facility] [place] 3Result Comment: [id number] 4Location History: [facility] [place] 5Result Comment: [11/26/2016] [facility] 6Result Comment: [11/26/2016] [facility] 7Result Comment: [11/26/2016] [facility] 8Result Comment: [11/26/2016] [facility] 9Result Comment: [11/26/2016] [facility] 10Result Comment: [11/26/2016] [facility] 11Result Comment: [11/26/2016] [facility] 12Result Comment: [11/26/2016] [facility] 13Result Comment: [11/26/2016] [facility] 14Result Comment: [11/26/2016] [facility] 15Result Comment: [11/26/2016] [facility] 16Result Comment: [11/26/2016] [facility] 17Result Comment: [11/26/2016] [facility] 18Result Comment: [11/26/2016] [facility] 19Result Comment: [11/26/2016] [facility] 20Result Comment: [11/26/2016] [facility] 21Result Comment: [11/26/2016] [facility] 22Result Comment: [11/26/2016] [facility] 23Result Comment: [11/26/2016] [facility] 24Result Comment: [11/26/2016] [facility] 25Result Comment: [11/26/2016] [facility] 26Result Comment: [11/26/2016] [facility] 27Result Comment: [11/26/2016] [facility] 28Result Comment: [11/26/2016] [facility] 29Result Comment: [11/26/2016] [facility] 30Result Comment: [11/26/2016] [facility] 31Result Comment: [11/26/2016] [facility] 32Result Comment: [11/26/2016] [facility] 33Result Comment: [11/26/2016] [facility] 34Result Comment: [11/26/2016] [facility] 35Result Comment: [11/26/2016] [facility] Medications Budesonide 1 mg, 1mg/2ml, Refills [...] Margaux Vivas RN Position: [facility] RN Member Role: Primary Care Nurse Name: Live Leyva MD Position: [facility] Physician -Physician Practices Member Role: Lifetime Consulting Physician Name: Jeanmarie Lopez MD Position: [facility] Renal MD Member Role: Lifetime Consulting Physician Address: Address: [address] [place] [address], [address] [facility] [place] [address]- Name: Lashonda Clifford Position: [facility] Outreach Member Role: Lifetime Consulting Physician Name: Isaiah Angeles MD Position: [facility] Physician - Primary Care Member Role: PCP Address: Address: [address] [place] [address]- Name: Annalise Lara RN Position: S RN Member Role: Primary Care Nurse Name: Mark Wilkes MD Position: [facility] Renal MD Member Role: Lifetime Consulting Physician Address: Address: [address] [place] [address] [facility] [place], [place] [address] Name: Bibiana Treviño RN Position: S RN Member Role: Primary Care Nurse Care Team Related Persons Name: MIRA MILLER Address: [place] [phone] Name: MIRA MILLER Address: [place] [phone] Name: MIRA MILLER Address: [place] [phone] Name: MRIA MILLER Address: [place] [phone] Name: MIRA MILLER Address: [place] [phone] Name: ANGELA MIRA Address: [place] [phone] Name: MIRA MILLER Address: [place] [phone] Name: PRATEEK MILLER Address: [address] [address] Name: BELEN MILLER Address: [address] [address] Name: BELEN MILLER Address: [address] [address]
--- OUTSIDE RECORDS SUMMARY | 2024-05-20 07:43 | XMS_ITS | Continuity of Care Document ---
Author Organization [facility] Ethan lt Address [address] [place] [address]- Care Team Providers Care Environmental Engineer Name Role Phone Karthik HENLEY, Isaiah Douglas Primary Care Physician [phone] Encounter [facility] Date(s): 10/11/22 - 11/10/22 [facility] [place] Adult [address] [place] [address]- Allergies, Adverse Reactions, Alerts Substance Reaction Severity Status codeine 1 Surgical adhesive ta pe itching Active Adhesive Bandage 2 Rash Active riTUXimab 3 Severe Active 1hives 2surgical tape allergy as per family 3developed anaphylaxis with throat closure sensation and facial swelling needed brief epinephrine drip Immunizations Given and Recorded Vaccine Date Status Refusal Reason tetanus-diphtheria toxoids (Td) 1 08/15/22 Given [id number] bivalent booster vax 07/05/22 Recorded influenza virus [...] Given Parent Or Guardian Refuses 1Result Comment: [id number] 2Result Comment: [facility] [place] 3Result Comment: [facility]-[id number] 4Location History: [facility] [place] 5Result Comment: [11/26/2016] [facility] 6Result Comment: [11/26/2016] [facility] 7Result Comment: [11/26/2016] [facility] 8Result Comment: [11/26/2016] [facility] 9Result Comment: [11/26/2016] [facility] 10Result Comment: [11/26/2016] [facility] 11Result Comment: [11/26/2016] [facility] 12Result Comment: [11/26/2016] [facility] 13Result Comment: [11/26/2016] [facility] 14Result Comment: [11/26/2016] [facility] 15Result Comment: [11/26/2016] [facility] 16Result Comment: [11/26/2016] [facility] 17Result Comment: [11/26/2016] [facility] 18Result Comment: [11/26/2016] [facility] 19Result Comment: [11/26/2016] [facility] 20Result Comment: [11/26/2016] [facility] 21Result Comment: [11/26/2016] [facility] 22Result Comment: [11/26/2016] [facility] 23Result Comment: [11/26/2016] [facility] 24Result Comment: [11/26/2016] [facility] 25Result Comment: [11/26/2016] [facility] 26Result Comment: [11/26/2016] [facility] 27Result Comment: [11/26/2016] [facility] 28Result Comment: [11/26/2016] [facility] 29Result Comment: [11/26/2016] [facility] 30Result Comment: [11/26/2016] [facility] 31Result Comment: [11/26/2016] [facility] 32Result Comment: [11/26/2016] [facility] 33Result Comment: [11/26/2016] [facility] 34Result Comment: [11/26/2016] [facility] 35Result Comment: [11/26/2016] [facility] Medications cholecalciferol 50 mcg (2000 intl [...] Team Personnel Name: Margaux Vivas RN Position: [facility] RN Member Role: Primary Care Nurse Name: Live Leyva MD Position: [facility] Physician -Physician Practices Member Role: Lifetime Consulting Physician Name: Jeanmarie Lopez MD Position: [facility] Renal MD Member Role: Lifetime Consulting Physician Address: Address: [address] [place] [address], [facility] [address] [facility] [place] [address]- [place] Name: Lashonda Cliffodr Position: [facility] Outreach Member Role: Lifetime Consulting Physician Name: Tiera Wadsworth RN Position: [facility] RN Member Role: Primary Care Nurse Name: Isaiah Angeles MD Position: [facility] Primary Care Physician Member Role: PCP Address: Address: [address] [place] [address]- [place] Name: Annalise Lara RN Position: [facility] RN Member Role: Primary Care Nurse Name: Mark Wilkes MD Position: [facility] Renal MD Member Role: Lifetime Consulting Physician Address: Address: [address] [facility] [place] [address]- [place] Name: Bibiana Treviño RN Position: [facility] RN Member Role: Primary Care Nurse Care Team Related Persons Name: MIRA MILLER Address: [address] [phone] Name: MIRA MILLER Address: [address] [phone] Name: MIRA MILLER Address: [address] [phone] Name: MIRA MILLER Address: [place] [address] [facility] [phone] Name: MIRA MILLER Address: [address] [phone] Name: MIRA MILLER Address: [address] [phone] Name: MIRA MILLER Address: [address] [phone] Name: PRATEEK MILLER Address: [address] [address] Name: BELEN MILLER Address: [address] [address] Name: BELEN MILLER Address: [address] [address]
--- OUTSIDE RECORDS SUMMARY | 2024-05-20 07:43 | XMS_ITS | Continuity of Care Document ---
Author Organization [facility] Ethan lt Address [address] [place] [address]- Care Team Providers Care Gold Blower Name Role Phone Karthik HENLEY, Isaiah Douglas Primary Care Physician Encounter [facility] [place] Date(s): 10/22/22 - 11/21/22 [facility] Adult [address] [place] [address]- Allergies, Adverse Reactions, Alerts Substance Reaction Severity Status codeine 1 Surgical adhesive ta pe itching Active Adhesive Bandage 2 Rash Active riTUXimab 3 Severe Active 1hives 2surgical tape allergy as per family 3developed anaphylaxis with throat closure sensation and facial swelling needed brief epinephrine drip Immunizations Given and Recorded Vaccine Date Status Refusal Reason tetanus-diphtheria toxoids (Td) 1 08/15/22 Given [id number] bivalent booster vax 07/05/22 Recorded influenza virus [...] Given Parent Or Guardian Refuses 1Result Comment: [id number] 2Result Comment: [facility] [place] 3Result Comment: [facility]-[id number] 4Location History: [facility] [place] 5Result Comment: [11/26/2016] [facility] 6Result Comment: [11/26/2016] [facility] 7Result Comment: [11/26/2016] [facility] 8Result Comment: [11/26/2016] [facility] 9Result Comment: [11/26/2016] [facility] 10Result Comment: [11/26/2016] [facility] 11Result Comment: [11/26/2016] [facility] 12Result Comment: [11/26/2016] [facility] 13Result Comment: [11/26/2016] [facility] 14Result Comment: [11/26/2016] [facility] 15Result Comment: [11/26/2016] [facility] 16Result Comment: [11/26/2016] [facility] 17Result Comment: [11/26/2016] [facility] 18Result Comment: [11/26/2016] [facility] 19Result Comment: [11/26/2016] [facility] 20Result Comment: [11/26/2016] [facility] 21Result Comment: [11/26/2016] [facility] 22Result Comment: [11/26/2016] [facility] 23Result Comment: [11/26/2016] [facility] 24Result Comment: [11/26/2016] [facility] 25Result Comment: [11/26/2016] [facility] 26Result Comment: [11/26/2016] [facility] 27Result Comment: [11/26/2016] [facility] 28Result Comment: [11/26/2016] [facility] 29Result Comment: [11/26/2016] [facility] 30Result Comment: [11/26/2016] [facility] 31Result Comment: [11/26/2016] [facility] 32Result Comment: [11/26/2016] [facility] 33Result Comment: [11/26/2016] [facility] 34Result Comment: [11/26/2016] [facility] 35Result Comment: [11/26/2016] [facility] Medications cholecalciferol 50 mcg (2000 intl [...] Team Personnel Name: Margaux Vivas RN Position: [facility] RN Member Role: Primary Care Nurse Name: Live Leyva MD Position: [facility] Physician -Physician Practices Member Role: Lifetime Consulting Physician Name: John HENLEY, Jeanmarie Pratt Position: [facility] Renal MD Member Role: Lifetime Consulting Physician Address: Address: [address] [place] [address], [address] [facility] [place] [address]- [place] Name: Lashonda Clifford Position: [facility] Outreach Member Role: Lifetime Consulting Physician Name: Tiera Wadsworth RN Position: [facility] RN Member Role: Primary Care Nurse Name: Isaiah Angeles MD Position: [facility] Primary Care Physician Member Role: PCP Address: Address: [address] [place] [phone]- [place] Name: Annalise Lara RN Position: [facility] RN Member Role: Primary Care Nurse Name: Mark Wilkes MD Position: [facility] Renal MD Member Role: Lifetime Consulting Physician Address: Address: [address] [facility] [place] [address]- [place] Name: Bibiana Treviño RN Position: [facility] RN Member Role: Primary Care Nurse Care Team Related Persons Name: AKASHRICARDOJANETH MIRA Address: [address] [phone] Name: AKASHMIRA CARTY Address: [address] [phone] Name: MIRA MILLER Address: [address] [phone] Name: MIRA MILLER Address: [address] [phone] Name: MIRA MILLER Address: [address] [phone] Name: AKASHMIRA CARTY Address: [address] [phone] Name: MIRA MILLER Address: [address] [phone] Name: PRATEEK MILLER Address: [address] [address] Name: BELEN MILLER Address: home [address] [place] [address] Name: BELEN MILLER Address: [address] [address]
--- OUTSIDE RECORDS SUMMARY | 2024-05-20 07:43 | XMS_ITS | Continuity of Care Document ---
Author Organization [facility] Ethan lt Address [address] [place] [address]- Care Team Providers Care Health Underwriter Name Role Phone Karthik HENLEY, Isaiah Douglas Primary Care Physician [place] [facility] [place] Date(s): 12/14/20 - 01/13/21 [facility] Adult [address] [place] [address]- Allergies, Adverse Reactions, Alerts Substance Reaction Severity [...] Or Guardian Refuses 1Result Comment: [facility]-[id number] 2Location History: [facility] [place] 3Result Comment: [11/26/2016] [facility] 4Result Comment: [11/26/2016] [facility] 5Result Comment: [11/26/2016] [facility] 6Result Comment: [11/26/2016] [facility] 7Result Comment: [11/26/2016] [facility] 8Result Comment: [11/26/2016] [facility] 9Result Comment: [11/26/2016] [facility] 10Result Comment: [11/26/2016] [facility] 11Result Comment: [11/26/2016] [facility] 12Result Comment: [11/26/2016] [facility] 13Result Comment: [11/26/2016] [facility] 14Result Comment: [11/26/2016] [facility] 15Result Comment: [11/26/2016] [facility] 16Result Comment: [11/26/2016] [facility] 17Result Comment: [11/26/2016] [facility] 18Result Comment: [11/26/2016] [facility] 19Result Comment: [11/26/2016] [facility] 20Result Comment: [11/26/2016] [facility] 21Result Comment: [11/26/2016] [facility] 22Result Comment: [11/26/2016] [facility] 23Result Comment: [11/26/2016] [facility] 24Result Comment: [11/26/2016] [facility] 25Result Comment: [11/26/2016] [facility] 26Result Comment: [11/26/2016] [facility] 27Result Comment: [11/26/2016] [facility] 28Result Comment: [11/26/2016] [facility] 29Result Comment: [11/26/2016] [facility] 30Result Comment: [11/26/2016] [facility] 31Result Comment: [11/26/2016] [facility] 32Result Comment: [11/26/2016] [facility] 33Result Comment: [11/26/2016] [facility] Medications lidocaine 4% topical film 1 [...]
--- OUTSIDE RECORDS SUMMARY | 2024-05-20 07:43 | XMS_ITS | Continuity of Care Document ---
Author Organization [facility] Address [address] [place] [address]- Care Team Providers Care Mechanical Manufacturing Technician Name Role Phone Karthik HENLEY, Isaiah Douglas Primary Care Physician Encounter [facility] [place] Date(s): 06/03/23 - 07/03/23 [facility] [address] [place] [address]- Allergies, Adverse Reactions, Alerts Substance Reaction Severity [...] corded tetanus-diphtheria toxoids (Td) 10 08/15/22 Given [id number] bivalent booster vax 07/05/22 Recorded SARS-CoV-2 (COVID-19) [...] Comment: [facility] [place] 2Result Comment: [facility]-[id number] 3Location History: [facility] [place] 4Result Comment: [11/26/2016] [facility] 5Result Comment: [11/26/2016] [facility] 6Result Comment: [11/26/2016] [facility] 7Result Comment: [11/26/2016] [facility] 8Result Comment: [11/26/2016] [facility] 9Result Comment: [11/26/2016] [facility] 10Result Comment: [id number] 11Result Comment: [11/26/2016] [facility] 12Result Comment: [11/26/2016] [facility] 13Result Comment: [11/26/2016] [facility] 14Result Comment: [11/26/2016] [facility] 15Result Comment: [11/26/2016] [facility] 16Result Comment: [11/26/2016] [facility] 17Result Comment: [11/26/2016] [facility] 18Result Comment: [11/26/2016] [facility] 19Result Comment: [11/26/2016] [facility] 20Result Comment: [11/26/2016] [facility] 21Result Comment: [11/26/2016] [facility] 22Result Comment: [11/26/2016] [facility] 23Result Comment: [11/26/2016] [facility] 24Result Comment: [11/26/2016] [facility] 25Result Comment: [11/26/2016] [facility] 26Result Comment: [11/26/2016] [facility] 27Result Comment: [11/26/2016] [facility] 28Result Comment: [11/26/2016] [facility] 29Result Comment: [11/26/2016] [facility] 30Result Comment: [11/26/2016] [facility] 31Result Comment: [11/26/2016] [facility] 32Result Comment: [11/26/2016] [facility] 33Result Comment: [11/26/2016] [facility] 34Result Comment: [11/26/2016] [facility] 35Result Comment: [11/26/2016] [facility] Medications Flovent 110 mcg Inhaler HFA [...] Member Role: Lifetime Consulting Physician Address: Address: [address] [place] [address] [address] [place] [address]- Name: Lashonda Clifford Position: [facility] Outreach Member Role: Lifetime Consulting Physician Name: Tiera Wadsworth RN Position: [facility] RN Member Role: Primary Care Nurse Name: Isaiah Angeles MD Position: [facility] Physician - Primary Care Member Role: PCP Address: Address: [address] [place] [phone]- [place] Name: Annalise Lara RN Position: S RN Member Role: Primary Care Nurse Name: Mark Wilkes MD Position: S Renal MD Member Role: Lifetime Consulting Physician Address: Address: [address] [place] [address] [facility] [place] [address]- Name: Bibiana Treviño RN Position: S RN Member Role: Primary Care Nurse Care Team Related Persons Name: MIRA MILLER Address: home [address] [phone] Name: MIRA MILLER Address: [place] Address: home [address] [place] [address] [place] Name: PRATEEK MILLER Address: home [address] [place] [address] Name: BELEN MILLER Address: home [address] [place] [address] Name: BELEN MILLER Address: home [address] [place] [address]
--- OUTSIDE RECORDS SUMMARY | 2024-05-20 07:43 | XMS_ITS | Continuity of Care Document ---
Author Organization [facility] Ethan lt Address [address] [place] [address]- Care Team Providers Care Pharmacy Clinical Specialist Name Role Phone Karthik HENLEY, Isaiah Douglas Primary Care Physician Encounter [facility] Date(s): 06/19/21 - 07/19/21 [facility] Adult [address] [place] [address]- Allergies, Adverse Reactions, Alerts Substance Reaction Severity [...] Refuses 1Result Comment: [facility]-[id number] 2Location History: [facility] [place] 3Result Comment: [11/26/2016] [facility] 4Result Comment: [11/26/2016] [facility] 5Result Comment: [11/26/2016] [facility] 6Result Comment: [11/26/2016] [facility] 7Result Comment: [11/26/2016] [facility] 8Result Comment: [11/26/2016] [facility] 9Result Comment: [11/26/2016] [facility] 10Result Comment: [11/26/2016] [facility] 11Result Comment: [11/26/2016] [facility] 12Result Comment: [11/26/2016] [facility] 13Result Comment: [11/26/2016] [facility] 14Result Comment: [11/26/2016] [facility] 15Result Comment: [11/26/2016] [facility] 16Result Comment: [11/26/2016] [facility] 17Result Comment: [11/26/2016] [facility] 18Result Comment: [11/26/2016] [facility] 19Result Comment: [11/26/2016] [facility] 20Result Comment: [11/26/2016] [facility] 21Result Comment: [11/26/2016] [facility] 22Result Comment: [11/26/2016] [facility] 23Result Comment: [11/26/2016] [facility] 24Result Comment: [11/26/2016] [facility] 25Result Comment: [11/26/2016] [facility] 26Result Comment: [11/26/2016] [facility] 27Result Comment: [11/26/2016] [facility] 28Result Comment: [11/26/2016] [facility] 29Result Comment: [11/26/2016] [facility] 30Result Comment: [11/26/2016] [facility] 31Result Comment: [11/26/2016] [facility] 32Result Comment: [11/26/2016] [facility] 33Result Comment: [11/26/2016] [facility] Medications lidocaine 4% topical film 1 [...]
--- OUTSIDE RECORDS SUMMARY | 2024-05-20 07:43 | XMS_ITS | Continuity of Care Document ---
Author Organization [facility] Ethan lt Address [address] [place] [address]- Care Team Providers Care Map Colorer Name Role Phone Karthik HENLEY, Isaiah Douglas Primary Care Physician Encounter [facility] Date(s): 05/13/20 - 06/12/20 [facility] Adult [address] [place] [address]- [facility] Allergies, Adverse Reactions, Alerts Substance Reaction [...] Guardian Refuses 1Result Comment: [facility]-[id number] 2Location History: [facility] [place] 3Result Comment: [11/26/2016] [facility] 4Result Comment: [11/26/2016] [facility] 5Result Comment: [11/26/2016] [facility] 6Result Comment: [11/26/2016] [facility] 7Result Comment: [11/26/2016] [facility] 8Result Comment: [11/26/2016] [facility] 9Result Comment: [11/26/2016] [facility] 10Result Comment: [11/26/2016] [facility] 11Result Comment: [11/26/2016] [facility] 12Result Comment: [11/26/2016] [facility] 13Result Comment: [11/26/2016] [facility] 14Result Comment: [11/26/2016] [facility] 15Result Comment: [11/26/2016] [facility] 16Result Comment: [11/26/2016] [facility] 17Result Comment: [11/26/2016] [facility] 18Result Comment: [11/26/2016] [facility] 19Result Comment: [11/26/2016] [facility] 20Result Comment: [11/26/2016] [facility] 21Result Comment: [11/26/2016] [facility] 22Result Comment: [11/26/2016] [facility] 23Result Comment: [11/26/2016] [facility] 24Result Comment: [11/26/2016] [facility] 25Result Comment: [11/26/2016] [facility] 26Result Comment: [11/26/2016] [facility] 27Result Comment: [11/26/2016] [facility] 28Result Comment: [11/26/2016] [facility] 29Result Comment: [11/26/2016] [facility] 30Result Comment: [11/26/2016] [facility] 31Result Comment: [11/26/2016] [facility] 32Result Comment: [11/26/2016] [facility] 33Result Comment: [11/26/2016] [facility] Medications Flovent HFA 110 mcg/inh inhalation [...] 4 Refills, Maintenance, 02/26/20 12:05:00 EDT, Tablet, [facility], 153, cm, 02/26/20 12:03:00 EDT, Height, 62, kg, 01/02/20 11:03:00 EDT, Dry Weight Start Date: 02/26/20 Status: Ordered lisinopril 20 mg oral tablet 20 mg, 1, tablet, By Mouth, Daily, # 30 tablet, Refills 0, Tot. Refills 0, Maintenance, 05/05/20 7:46:00 EDT, Route to Pharmacy Electronically, [facility], 153, cm, 05/05/20 7:32:00 EDT, [...]
--- OUTSIDE RECORDS SUMMARY | 2024-05-20 07:43 | XMS_ITS | Continuity of Care Document ---
Author Organization [facility] Address [address] [place] [address]- Care Team Providers Care Mash Tub Cooker Operator Name Role Phone Karthik HENLEY, Isaiah Douglas Primary Care Physician [phone] Encounter [facility] [place] Date(s): 05/25/22 - 06/24/22 [facility] [address] [place] [id number] Allergies, Adverse Reactions, Alerts [...] Comment: [facility] [place] 2Result Comment: [facility]-[id number] 3Location History: [facility] [place] 4Result Comment: [11/26/2016] [facility] 5Result Comment: [11/26/2016] [facility] 6Result Comment: [11/26/2016] [facility] 7Result Comment: [11/26/2016] [facility] 8Result Comment: [11/26/2016] [facility] 9Result Comment: [11/26/2016] [facility] 10Result Comment: [11/26/2016] [facility] 11Result Comment: [11/26/2016] [facility] 12Result Comment: [11/26/2016] [facility] 13Result Comment: [11/26/2016] [facility] 14Result Comment: [11/26/2016] [facility] 15Result Comment: [11/26/2016] [facility] 16Result Comment: [11/26/2016] [facility] 17Result Comment: [11/26/2016] [facility] 18Result Comment: [11/26/2016] [facility] 19Result Comment: [11/26/2016] [facility] 20Result Comment: [11/26/2016] [facility] 21Result Comment: [11/26/2016] [facility] 22Result Comment: [11/26/2016] [facility] 23Result Comment: [11/26/2016] [facility] 24Result Comment: [11/26/2016] [facility] 25Result Comment: [11/26/2016] [facility] 26Result Comment: [11/26/2016] [facility] 27Result Comment: [11/26/2016] [facility] 28Result Comment: [11/26/2016] [facility] 29Result Comment: [11/26/2016] [facility] 30Result Comment: [11/26/2016] [facility] 31Result Comment: [11/26/2016] [facility] 32Result Comment: [11/26/2016] [facility] 33Result Comment: [11/26/2016] [facility] 34Result Comment: [11/26/2016] [facility] Medications Flovent 110 mcg Inhaler HFA [...] Personnel Name: Isaiah Angeles MD Address: Address: [address] [place] [address]- [place]
--- OUTSIDE RECORDS SUMMARY | 2024-05-20 07:43 | XMS_ITS | Continuity of Care Document ---
Author Organization [facility] Address [address] [place] [address]- Care Team Providers Care Tribal Council Member Name Role Phone Karthik HENLEY, Isaiah Douglas Primary Care Physician [phone] Encounter [facility] [place] Date(s): 08/15/23 - 09/14/23 [facility] [address] [place] [address]- Allergies, Adverse Reactions, Alerts Substance Reaction Severity [...] corded tetanus-diphtheria toxoids (Td) 10 08/15/22 Given [id number] bivalent booster vax 07/05/22 Recorded SARS-CoV-2 (COVID-19) [...] Comment: [facility] [place] 2Result Comment: [facility]-[id number] 3Location History: [facility] [place] 4Result Comment: [11/26/2016] [facility] 5Result Comment: [11/26/2016] [facility] 6Result Comment: [11/26/2016] [facility] 7Result Comment: [11/26/2016] [facility] 8Result Comment: [11/26/2016] [facility] 9Result Comment: [11/26/2016] [facility] 10Result Comment: [id number] 11Result Comment: [11/26/2016] [facility] 12Result Comment: [...] [facility] 33Result Comment: [11/26/2016] [facility] 34Result Comment: [11/26/2016] [facility] 35Result Comment: [11/26/2016] [facility] Medications Flovent 110 mcg Inhaler HFA [...] Team Personnel Name: Live Leyva MD Position: [facility] Physician -Physician Practices Member Role: Lifetime Consulting Physician Name: Jeanmarie Lopez MD Position: [facility] Renal MD Member Role: Lifetime Consulting Physician Address: Address: [address] [place] [address] [address] [facility] [address]- Name: Lashonda Clifford Position: [facility] Outreach Member Role: Lifetime Consulting Physician Name: Tiera Wadsworth RN Position: [facility] RN Member Role: Primary Care Nurse Name: Isaiah Angeles MD Position: [facility] Physician - Primary Care Member Role: PCP Address: Address: [address] [place] [address]- [place] Name: Annalise Lara RN Position: S RN Member Role: Primary Care Nurse Name: Mark Wilkes MD Position: [facility] Renal MD Member Role: Lifetime Consulting Physician Address: Address: [address] [place] [address] [facility] [place] [address]- Name: Bibiana Treviño RN Position: S RN Member Role: Primary Care Nurse Care Team Related Persons Name: MIRA MILLER Address: home [address] [phone] Name: MIRA MILLER Address: [place] Address: home [address] [place] [address] [place] Name: PRATEEK MILLER Address: home [address] [place] [address] Name: BELEN MILLER Address: [address] [place] [address] Name: BELEN MILLER Address: home [address] [place] [address]
--- OUTSIDE RECORDS SUMMARY | 2024-05-20 07:43 | XMS_ITS | Continuity of Care Document ---
Author Organization [facility] Ethan lt Address [address] [place] [address]- Care Team Providers Care Fiber Glass Worker Name Role Phone Karthik HENLEY, Isaiah Douglas Primary Care Physician Encounter [facility] [place] Date(s): 02/23/21 - 03/25/21 [facility] Adult [address] [place] [address]- Allergies, Adverse Reactions, Alerts Substance Reaction Severity [...] Or Guardian Refuses 1Result Comment: [facility]-[id number] 2Location History: [facility] [place] 3Result Comment: [11/26/2016] [facility] 4Result Comment: [11/26/2016] [facility] 5Result Comment: [11/26/2016] [facility] 6Result Comment: [11/26/2016] [facility] 7Result Comment: [11/26/2016] [facility] 8Result Comment: [11/26/2016] [facility] 9Result Comment: [11/26/2016] [facility] 10Result Comment: [11/26/2016] [facility] 11Result Comment: [11/26/2016] [facility] 12Result Comment: [11/26/2016] [facility] 13Result Comment: [11/26/2016] [facility] 14Result Comment: [11/26/2016] [facility] 15Result Comment: [11/26/2016] [facility] 16Result Comment: [11/26/2016] [facility] 17Result Comment: [11/26/2016] [facility] 18Result Comment: [11/26/2016] [facility] 19Result Comment: [11/26/2016] [facility] 20Result Comment: [11/26/2016] [facility] 21Result Comment: [11/26/2016] [facility] 22Result Comment: [11/26/2016] [facility] 23Result Comment: [11/26/2016] [facility] 24Result Comment: [11/26/2016] [facility] 25Result Comment: [11/26/2016] [facility] 26Result Comment: [11/26/2016] [facility] 27Result Comment: [11/26/2016] [facility] 28Result Comment: [11/26/2016] [facility] 29Result Comment: [11/26/2016] [facility] 30Result Comment: [11/26/2016] [facility] 31Result Comment: [11/26/2016] [facility] 32Result Comment: [11/26/2016] [facility] 33Result Comment: [11/26/2016] [facility] Medications levothyroxine 125 mcg (0.125 mg) [...]
--- OUTSIDE RECORDS SUMMARY | 2024-05-20 07:43 | XMS_ITS | Continuity of Care Document ---
Author Organization [facility] Ethan lt Address [address] [place] [address]- Care Team Providers Care Pharmacy Services Director Name Role Phone Karthik HENLEY, Isaiah Douglas Primary Care Physician [phone] [place]counter [facility] [place] Date(s): 05/16/23 - 06/15/23 [facility] Adult [address] [place] [address]- Allergies, Adverse Reactions, Alerts Substance Reaction Severity [...] corded tetanus-diphtheria toxoids (Td) 10 08/15/22 Given [id number] bivalent booster vax 07/05/22 Recorded SARS-CoV-2 (COVID-19) [...] Comment: [facility] [place] 2Result Comment: [facility]-[id number] 3Location History: [facility] [place] 4Result Comment: [11/26/2016] [facility] 5Result Comment: [11/26/2016] [facility] 6Result Comment: [11/26/2016] [facility] 7Result Comment: [11/26/2016] [facility] 8Result Comment: [11/26/2016] [facility] 9Result Comment: [11/26/2016] [facility] 10Result Comment: [id number] 11Result Comment: [11/26/2016] [facility] 12Result Comment: [11/26/2016] [facility] 13Result Comment: [11/26/2016] [facility] 14Result Comment: [11/26/2016] [facility] 15Result Comment: [11/26/2016] [facility] 16Result Comment: [11/26/2016] [facility] 17Result Comment: [11/26/2016] [facility] 18Result Comment: [11/26/2016] [facility] 19Result Comment: [11/26/2016] [facility] 20Result Comment: [11/26/2016] [facility] 21Result Comment: [11/26/2016] [facility] 22Result Comment: [11/26/2016] [facility] 23Result Comment: [11/26/2016] [facility] 24Result Comment: [11/26/2016] [facility] 25Result Comment: [11/26/2016] [facility] 26Result Comment: [11/26/2016] [facility] 27Result Comment: [11/26/2016] [facility] 28Result Comment: [11/26/2016] [facility] 29Result Comment: [11/26/2016] [facility] 30Result Comment: [11/26/2016] [facility] 31Result Comment: [11/26/2016] [facility] 32Result Comment: [11/26/2016] [facility] 33Result Comment: [11/26/2016] [facility] 34Result Comment: [11/26/2016] [facility] 35Result Comment: [11/26/2016] [facility] Medications [...] Refills, Maintenance, 05/02/23 12:03:00 EDT, [facility], Partial fill upon patient request [...] Team Personnel Name: Margaux Vivas RN Position: [facility] RN Member Role: Primary Care Nurse Name: Live Leyva MD Position: [facility] Physician -Physician Practices Member Role: Lifetime Consulting Physician Name: Jeanmarie Lopez MD Position: [facility] Renal MD Member Role: Lifetime Consulting Physician Address: Address: [address] [place] [address], [address] [facility] [address] Name: Lashonda Clifford Position: [facility] Outreach Member Role: Lifetime Consulting Physician Name: Tiera Wadsworth RN Position: [facility] RN Member Role: Primary Care Nurse Name: Isaiah Angeles MD Position: [facility] Physician - Primary Care Member Role: PCP Address: Address: [address] [place] [phone]- [place] Name: Annalise Lara RN Position: [facility] RN Member Role: Primary Care Nurse Name: Mark Wilkes MD Position: [facility] Renal MD Member Role: Lifetime Consulting Physician Address: Address: [address] [place] [address] [facility] [place] [address]- Name: Bibiana Treviño RN Position: [facility] RN Member Role: Primary Care Nurse Care Team Related Persons Name: MIRA MILLER Address: [place] Address: home [address] [place] [address] Name: MIRA MILLER Address: home [address] [place] [place] [id number] Name: PRATEEK MILLER Address: home [address] [place] [address] Name: BELEN MILLER Address: home [address] [place] [address] Name: BELEN MILLER Address: home [address] [place] [address]
--- OUTSIDE RECORDS SUMMARY | 2024-05-20 07:43 | XMS_ITS | Continuity of Care Document ---
Author Organization [facility] Address [address] [place] [address]- Care Team Providers Care Superintendent Pier Name Role Phone Karthik HENLEY, Isaiah Douglas Primary Care Physician [phone] Encounter [facility] [place] Date(s): 05/23/22 - 06/22/22 [facility] [address] [place] [address] Allergies, Adverse Reactions, Alerts Substance Reaction [...] Comment: [facility] [place] 2Result Comment: [facility]-[id number] 3Location History: [facility] [place] 4Result Comment: [11/26/2016] [facility] 5Result Comment: [11/26/2016] [facility] 6Result Comment: [11/26/2016] [facility] 7Result Comment: [11/26/2016] [facility] 8Result Comment: [11/26/2016] [facility] 9Result Comment: [11/26/2016] [facility] 10Result Comment: [11/26/2016] [facility] 11Result Comment: [11/26/2016] [facility] 12Result Comment: [11/26/2016] [facility] 13Result Comment: [11/26/2016] [facility] 14Result Comment: [11/26/2016] [facility] 15Result Comment: [11/26/2016] [facility] 16Result Comment: [11/26/2016] [facility] 17Result Comment: [11/26/2016] [facility] 18Result Comment: [11/26/2016] [facility] 19Result Comment: [11/26/2016] [facility] 20Result Comment: [11/26/2016] [facility] 21Result Comment: [11/26/2016] [facility] 22Result Comment: [11/26/2016] [facility] 23Result Comment: [11/26/2016] [facility] 24Result Comment: [11/26/2016] [facility] 25Result Comment: [11/26/2016] [facility] 26Result Comment: [11/26/2016] [facility] 27Result Comment: [11/26/2016] [facility] 28Result Comment: [11/26/2016] [facility] 29Result Comment: [11/26/2016] [facility] 30Result Comment: [11/26/2016] [facility] 31Result Comment: [11/26/2016] [facility] 32Result Comment: [11/26/2016] [facility] 33Result Comment: [11/26/2016] [facility] 34Result Comment: [11/26/2016] [facility] Medications Flovent 110 mcg Inhaler HFA [...] Personnel Name: Isaiah Angeles MD Address: Address: [address] [place] [phone]- [place]
--- OUTSIDE RECORDS SUMMARY | 2024-05-20 07:43 | XMS_ITS | Continuity of Care Document ---
Author Organization [facility] [place] Ethan lt Address [address] [place] [address]- Care Team Providers Care Paperback Machine Operator Name Role Phone Karthik HENLEY, Isaiah Douglas Primary Care Physician [phone] Encounter [facility] [place] Date(s): 06/19/21 - 07/19/21 [facility] [place] Adult [address] [place] [address]- Allergies, Adverse Reactions, Alerts Substance Reaction Severity [...] Guardian Refuses 1Result Comment: [facility]-[id number] 2Location History: [facility] [place] 3Result Comment: [11/26/2016] [facility] 4Result Comment: [11/26/2016] [facility] 5Result Comment: [11/26/2016] [facility] 6Result Comment: [11/26/2016] [facility] 7Result Comment: [11/26/2016] [facility] 8Result Comment: [11/26/2016] [facility] 9Result Comment: [11/26/2016] [facility] 10Result Comment: [11/26/2016] [facility] 11Result Comment: [11/26/2016] [facility] 12Result Comment: [11/26/2016] [facility] 13Result Comment: [11/26/2016] [facility] 14Result Comment: [11/26/2016] [facility] 15Result Comment: [11/26/2016] [facility] 16Result Comment: [11/26/2016] [facility] 17Result Comment: [11/26/2016] [facility] 18Result Comment: [11/26/2016] [facility] 19Result Comment: [11/26/2016] [facility] 20Result Comment: [11/26/2016] [facility] 21Result Comment: [11/26/2016] [facility] 22Result Comment: [11/26/2016] [facility] 23Result Comment: [11/26/2016] [facility] 24Result Comment: [11/26/2016] [facility] 25Result Comment: [11/26/2016] [facility] 26Result Comment: [11/26/2016] [facility] 27Result Comment: [11/26/2016] [facility] 28Result Comment: [11/26/2016] [facility] 29Result Comment: [11/26/2016] [facility] 30Result Comment: [11/26/2016] [facility] 31Result Comment: [11/26/2016] [facility] 32Result Comment: [11/26/2016] [facility] 33Result Comment: [11/26/2016] [facility] Medications lidocaine 4% topical film 1 [...]
--- OUTSIDE RECORDS SUMMARY | 2024-05-20 07:43 | XMS_ITS | Continuity of Care Document ---
Author Organization [facility] Ethan lt Address [address] [place] [address]- Care Team Providers Care Retail Training Manager Name Role Phone Karthik HENLEY, Isaiah Douglas Primary Care Physician Encounter [facility] [place] Date(s): 08/28/22 - 09/27/22 [facility] Adult [address] [place] [address]- Allergies, Adverse Reactions, Alerts Substance Reaction Severity Status codeine 1 Surgical adhesive ta pe itching Active Adhesive Bandage 2 Rash Active riTUXimab 3 Severe Active 1hives 2surgical tape allergy as per family 3developed anaphylaxis with throat closure sensation and facial swelling needed brief epinephrine drip Immunizations Given and Recorded Vaccine Date Status Refusal Reason tetanus-diphtheria toxoids (Td) 1 08/15/22 Given [id number] bivalent booster vax 07/05/22 Recorded influenza virus [...] Given Parent Or Guardian Refuses 1Result Comment: [id number] 2Result Comment: [facility] [place] 3Result Comment: [id number] 4Location History: [facility] [place] 5Result Comment: [11/26/2016] [facility] 6Result Comment: [11/26/2016] [facility] 7Result Comment: [11/26/2016] [facility] 8Result Comment: [11/26/2016] [facility] 9Result Comment: [11/26/2016] [facility] 10Result Comment: [11/26/2016] [facility] 11Result Comment: [11/26/2016] [facility] 12Result Comment: [11/26/2016] [facility] 13Result Comment: [11/26/2016] [facility] 14Result Comment: [11/26/2016] [facility] 15Result Comment: [11/26/2016] [facility] 16Result Comment: [11/26/2016] [facility] 17Result Comment: [11/26/2016] [facility] 18Result Comment: [11/26/2016] [facility] 19Result Comment: [11/26/2016] [facility] 20Result Comment: [11/26/2016] [facility] 21Result Comment: [11/26/2016] [facility] 22Result Comment: [11/26/2016] [facility] 23Result Comment: [11/26/2016] [facility] 24Result Comment: [11/26/2016] [facility] 25Result Comment: [11/26/2016] [facility] 26Result Comment: [11/26/2016] [facility] 27Result Comment: [11/26/2016] [facility] 28Result Comment: [11/26/2016] [facility] 29Result Comment: [11/26/2016] [facility] 30Result Comment: [11/26/2016] [facility] 31Result Comment: [11/26/2016] [facility] 32Result Comment: [11/26/2016] [facility] 33Result Comment: [11/26/2016] [facility] 34Result Comment: [11/26/2016] [facility] 35Result Comment: [11/26/2016] [facility] Medications cholecalciferol 50 mcg (2000 intl [...] Member Role: Lifetime Consulting Physician Address: Address: [address] [place] [address], [address] [facility] [address] Name: Lashonda Clifford Position: [facility] Outreach Member Role: Lifetime Consulting Physician Name: Tiera Wadsworth RN Position: [facility] RN Member Role: Primary Care Nurse Name: Isaiah Angeles MD Position: [facility] Primary Care Physician Member Role: PCP Address: Address: [address] [place] [address]- [place] Name: Annalise Lara RN Position: [facility] RN Member Role: Primary Care Nurse Name: Mark Wilkes MD Position: [facility] Renal MD Member Role: Lifetime Consulting Physician Address: Address: [address] [place] [address] [facility] [place] [address]- Name: Bibiana Treviño RN Position: [facility] RN Member Role: Primary Care Nurse Care Team Related Persons Name: MIRA MILLER Address: [place] [id number] Name: ANGELA MIRA Address: [place] [phone] Name: MIRA MILLER Address: [address] [id number] Name: ANGELA MIRA Address: [address] [id number] Name: ANGELA MIRA Address: [address] [phone] Name: ANGELA MIRA Address: [address] [id number] Name: MIRA MILLER Address: [address] [id number] Name: PRATEEK MILLER Address: [address] [address] Name: BELEN MILLER Address: [address] [address] Name: BELEN MILLER Address: [address] [address]
--- OUTSIDE RECORDS SUMMARY | 2024-05-20 07:43 | XMS_ITS | Continuity of Care Document ---
Author Organization [facility] Ethan lt Address [address] [place] [address]- Care Team Providers Care Fmd Teacher Name Role Phone Isaiah Angeles MD Primary Care Physician Encounter [facility] [place] Date(s): 05/08/21 - 05/15/21 [facility] Adult [address] [place] [address]- Attending Physician: Isaiah Angeles MD Allergies, Adverse [...] Refuses 1Result Comment: [facility]-[id number] 2Location History: [facility] [place] 3Result Comment: [11/26/2016] [facility] 4Result Comment: [11/26/2016] [facility] 5Result Comment: [11/26/2016] [facility] 6Result Comment: [11/26/2016] [facility] 7Result Comment: [11/26/2016] [facility] 8Result Comment: [11/26/2016] [facility] 9Result Comment: [11/26/2016] [facility] 10Result Comment: [11/26/2016] [facility] 11Result Comment: [11/26/2016] [facility] 12Result Comment: [11/26/2016] [facility] 13Result Comment: [11/26/2016] [facility] 14Result Comment: [11/26/2016] [facility] 15Result Comment: [11/26/2016] [facility] 16Result Comment: [11/26/2016] [facility] 17Result Comment: [11/26/2016] [facility] 18Result Comment: [11/26/2016] [facility] 19Result Comment: [11/26/2016] [facility] 20Result Comment: [11/26/2016] [facility] 21Result Comment: [11/26/2016] [facility] 22Result Comment: [11/26/2016] [facility] 23Result Comment: [11/26/2016] [facility] 24Result Comment: [11/26/2016] [facility] 25Result Comment: [11/26/2016] [facility] 26Result Comment: [11/26/2016] [facility] 27Result Comment: [11/26/2016] [facility] 28Result Comment: [11/26/2016] [facility] 29Result Comment: [11/26/2016] [facility] 30Result Comment: [11/26/2016] [facility] 31Result Comment: [11/26/2016] [facility] 32Result Comment: [11/26/2016] [facility] 33Result Comment: [11/26/2016] [facility] Medications levothyroxine 125 mcg (0.125 mg) [...]
--- OUTSIDE RECORDS SUMMARY | 2024-05-20 07:43 | XMS_ITS | Continuity of Care Document ---
Author Organization [facility] [place] Ethan lt Address [address] [place] [address]- Care Team Providers Care Photonics Engineer Name Role Phone Karthik HENLEY, Isaiah Douglas Primary Care Physician [place] [facility] [place] - 05/16/22 [facility] [place] Adult [address] [place] [address]- Allergies, Adverse Reactions, Alerts Substance Reaction Severity [...] Or Guardian Refuses 1Result Comment: [facility]-[id number] 2Location History: [facility] [place] 3Result Comment: [11/26/2016] [facility] 4Result Comment: [11/26/2016] [facility] 5Result Comment: [11/26/2016] [facility] 6Result Comment: [11/26/2016] [facility] 7Result Comment: [11/26/2016] [facility] 8Result Comment: [11/26/2016] [facility] 9Result Comment: [11/26/2016] [facility] 10Result Comment: [11/26/2016] [facility] 11Result Comment: [11/26/2016] [facility] 12Result Comment: [11/26/2016] [facility] 13Result Comment: [11/26/2016] [facility] 14Result Comment: [11/26/2016] [facility] 15Result Comment: [11/26/2016] [facility] 16Result Comment: [11/26/2016] [facility] 17Result Comment: [11/26/2016] [facility] 18Result Comment: [11/26/2016] [facility] 19Result Comment: [11/26/2016] [facility] 20Result Comment: [11/26/2016] [facility] 21Result Comment: [11/26/2016] [facility] 22Result Comment: [11/26/2016] [facility] 23Result Comment: [11/26/2016] [facility] 24Result Comment: [11/26/2016] [facility] 25Result Comment: [11/26/2016] [facility] 26Result Comment: [11/26/2016] [facility] 27Result Comment: [11/26/2016] [facility] 28Result Comment: [11/26/2016] [facility] 29Result Comment: [11/26/2016] [facility] 30Result Comment: [11/26/2016] [facility] 31Result Comment: [11/26/2016] [facility] 32Result Comment: [11/26/2016] [facility] 33Result Comment: [11/26/2016] [facility] Medications Flovent 110 mcg Inhaler HFA [...] Name: Karthik HENLEY, Isaiah Douglas Address: Address: [address] [place] [address]
--- OUTSIDE RECORDS SUMMARY | 2024-05-20 07:44 | XMS_ITS | Continuity of Care Document ---
Author Organization [facility] Address [address] [place] [address]- Care Team Providers Care Heel Reducer Name Role Phone Karthik HENLEY, Isaiah Douglas Primary Care Physician Encounter [facility] Date(s): 04/30/23 - 05/30/23 [facility] [address] [place] [id number] Allergies, Adverse Reactions, Alerts Substance [...] corded tetanus-diphtheria toxoids (Td) 10 08/15/22 Given [id number] bivalent booster vax 07/05/22 Recorded SARS-CoV-2 (COVID-19) [...] Comment: [facility] [place] 2Result Comment: [id number] 3Location History: [facility] [place] 4Result Comment: [11/26/2016] [facility] 5Result Comment: [11/26/2016] [facility] 6Result Comment: [11/26/2016] [facility] 7Result Comment: [11/26/2016] [facility] 8Result Comment: [11/26/2016] [facility] 9Result Comment: [11/26/2016] [facility] 10Result Comment: [id number] 11Result Comment: [11/26/2016] [facility] 12Result Comment: [11/26/2016] [facility] 13Result Comment: [11/26/2016] [facility] 14Result Comment: [11/26/2016] [facility] 15Result Comment: [11/26/2016] [facility] 16Result Comment: [11/26/2016] [facility] 17Result Comment: [11/26/2016] [facility] 18Result Comment: [11/26/2016] [facility] 19Result Comment: [11/26/2016] [facility] 20Result Comment: [11/26/2016] [facility] 21Result Comment: [11/26/2016] [facility] 22Result Comment: [11/26/2016] [facility] 23Result Comment: [11/26/2016] [facility] 24Result Comment: [11/26/2016] [facility] 25Result Comment: [11/26/2016] [facility] 26Result Comment: [11/26/2016] [facility] 27Result Comment: [11/26/2016] [facility] 28Result Comment: [11/26/2016] [facility] 29Result Comment: [11/26/2016] [facility] 30Result Comment: [11/26/2016] [facility] 31Result Comment: [11/26/2016] [facility] 32Result Comment: [11/26/2016] [facility] 33Result Comment: [11/26/2016] [facility] 34Result Comment: [11/26/2016] [facility] 35Result Comment: [11/26/2016] [facility] Medications Flovent 110 mcg Inhaler HFA [...] Refills, Maintenance, 05/02/23 12:03:00 EDT, [facility], Partial fill upon patient request if the prescription is for a schedule... Start Date: 05/02/23 Status: Ordered levothyroxine 25 mcg (0.025 mg)/mL oral solution 1 mL = 25 mcg, By Mouth, Daily, to be taken with the 200mcg liquid daily to total 225mcg daily, # 30 mL, 6 Refills, Maintenance, 05/02/23 12:01:00 EDT, [facility], Partial fill upon patient request [...] Team Personnel Name: Margaux Vivas RN Position: [facility] RN Member Role: Primary Care Nurse Name: Live Leyva MD Position: [facility] Physician -Physician Practices Member Role: Lifetime Consulting Physician Name: Jeanmarie Lopez MD Position: [facility] Renal MD Member Role: Lifetime Consulting Physician Address: Address: [address] [place] [address], [address] [facility] [address] Name: Lashonda Clifford Position: [facility] Outreach Member Role: Lifetime Consulting Physician Name: Tiera Wadsworth RN Position: [facility] RN Member Role: Primary Care Nurse Name: Isaiah Angeles MD Position: [facility] Physician - Primary Care Member Role: PCP Address: Address: [address] [place] [phone] [place] Name: Annalise Lara RN Position: [facility] RN Member Role: Primary Care Nurse Name: Mark Wilkes MD Position: [facility] Renal MD Member Role: Lifetime Consulting Physician Address: Address: [address] [place] [address] [facility] [place] [address]- Name: Bibiana Treviño RN Position: [facility] RN Member Role: Primary Care Nurse Care Team Related Persons Name: MIRA MILLER Address: [address] [place] [phone] Name: MIRA MILLER Address: [place] Address: [address] [place] [address] Name: PRATEEK MILLER Address: [address] [place] [address] Name: BELEN MILLER Address: [address] [place] [address] Name: BELEN MILLER Address: [address] [place] [address]
--- OUTSIDE RECORDS SUMMARY | 2024-05-20 07:44 | XMS_ITS | Continuity of Care Document ---
Author Organization [facility] Address [address] [place] [address]- Care Team Providers Care Spool Maker Name Role Phone Karthik HENLEY, Isaiah Douglas Primary Care Physician Encounter [facility] Date(s): 03/28/21 - 04/27/21 [facility] [address] [place] [address]- Allergies, Adverse Reactions, Alerts Substance Reaction Severity [...] Refuses 1Result Comment: [facility]-[id number] 2Location History: [facility] [place] 3Result Comment: [11/26/2016] [facility] 4Result Comment: [11/26/2016] [facility] 5Result Comment: [11/26/2016] [facility] 6Result Comment: [11/26/2016] [facility] 7Result Comment: [11/26/2016] [facility] 8Result Comment: [11/26/2016] [facility] 9Result Comment: [11/26/2016] [facility] 10Result Comment: [11/26/2016] [facility] 11Result Comment: [11/26/2016] [facility] 12Result Comment: [11/26/2016] [facility] 13Result Comment: [11/26/2016] [facility] 14Result Comment: [11/26/2016] [facility] 15Result Comment: [11/26/2016] [facility] 16Result Comment: [11/26/2016] [facility] 17Result Comment: [11/26/2016] [facility] 18Result Comment: [11/26/2016] [facility] 19Result Comment: [11/26/2016] [facility] 20Result Comment: [11/26/2016] [facility] 21Result Comment: [11/26/2016] [facility] 22Result Comment: [11/26/2016] [facility] 23Result Comment: [11/26/2016] [facility] 24Result Comment: [11/26/2016] [facility] 25Result Comment: [11/26/2016] [facility] 26Result Comment: [11/26/2016] [facility] 27Result Comment: [11/26/2016] [facility] 28Result Comment: [11/26/2016] [facility] 29Result Comment: [11/26/2016] [facility] 30Result Comment: [11/26/2016] [facility] 31Result Comment: [11/26/2016] [facility] 32Result Comment: [11/26/2016] [facility] 33Result Comment: [11/26/2016] [facility] Medications levothyroxine 125 mcg (0.125 mg) [...]
--- OUTSIDE RECORDS SUMMARY | 2024-05-20 07:44 | XMS_ITS | Continuity of Care Document ---
Author Organization [facility] Ethan lt Address [address] [place] [address]- Care Team Providers Care Kaitara Taraka Name Role Phone Karthik HENLEY, Isaiah Douglas Primary Care Physician [phone] [place] [facility] [place]12/22 - 05/12/22 [facility] Adult [address] [place] [address]- Allergies, Adverse Reactions, Alerts Substance Reaction Severity [...] Or Guardian Refuses 1Result Comment: [facility]-[id number] 2Location History: [facility] [place] 3Result Comment: [11/26/2016] [facility] 4Result Comment: [11/26/2016] [facility] 5Result Comment: [11/26/2016] [facility] 6Result Comment: [11/26/2016] [facility] 7Result Comment: [11/26/2016] [facility] 8Result Comment: [11/26/2016] [facility] 9Result Comment: [11/26/2016] [facility] 10Result Comment: [11/26/2016] [facility] 11Result Comment: [11/26/2016] [facility] 12Result Comment: [11/26/2016] [facility] 13Result Comment: [11/26/2016] [facility] 14Result Comment: [11/26/2016] [facility] 15Result Comment: [11/26/2016] [facility] 16Result Comment: [11/26/2016] [facility] 17Result Comment: [11/26/2016] [facility] 18Result Comment: [11/26/2016] [facility] 19Result Comment: [11/26/2016] [facility] 20Result Comment: [11/26/2016] [facility] 21Result Comment: [11/26/2016] [facility] 22Result Comment: [11/26/2016] [facility] 23Result Comment: [11/26/2016] [facility] 24Result Comment: [11/26/2016] [facility] 25Result Comment: [11/26/2016] [facility] 26Result Comment: [11/26/2016] [facility] 27Result Comment: [11/26/2016] [facility] 28Result Comment: [11/26/2016] [facility] 29Result Comment: [11/26/2016] [facility] 30Result Comment: [11/26/2016] [facility] 31Result Comment: [11/26/2016] [facility] 32Result Comment: [11/26/2016] [facility] 33Result Comment: [11/26/2016] [facility] Medications Flovent 110 mcg Inhaler HFA [...] Personnel Name: Karthik HENLEY, Isaiah Douglas Address: [address] [place] [id number]
--- OUTSIDE RECORDS SUMMARY | 2024-05-20 07:44 | XMS_ITS | Continuity of Care Document ---
Author Organization [facility] Iain Ethan lt Address [address] [place] [address]- Care Team Providers Care Manager Nc Name Role Phone Karthik HENLEY, Isaiah Douglas Primary Care Physician [facility] Date(s): 05/12/20 - 06/11/20 [facility] Adult [address] [place] [address]- [facility] Allergies, Adverse Reactions, Alerts [...] 1Result Comment: [facility]-[id number] 2Location History: [facility] [place] 3Result Comment: [11/26/2016] [facility] 4Result Comment: [11/26/2016] [facility] 5Result Comment: [11/26/2016] [facility] 6Result Comment: [11/26/2016] [facility] 7Result Comment: [11/26/2016] [facility] 8Result Comment: [11/26/2016] [facility] 9Result Comment: [11/26/2016] [facility] 10Result Comment: [11/26/2016] [facility] 11Result Comment: [11/26/2016] [facility] 12Result Comment: [11/26/2016] [facility] 13Result Comment: [11/26/2016] [facility] 14Result Comment: [11/26/2016] [facility] 15Result Comment: [11/26/2016] [facility] 16Result Comment: [11/26/2016] [facility] 17Result Comment: [11/26/2016] [facility] 18Result Comment: [11/26/2016] [facility] 19Result Comment: [11/26/2016] [facility] 20Result Comment: [11/26/2016] [facility] 21Result Comment: [11/26/2016] [facility] 22Result Comment: [11/26/2016] [facility] 23Result Comment: [11/26/2016] [facility] 24Result Comment: [11/26/2016] [facility] 25Result Comment: [11/26/2016] [facility] 26Result Comment: [11/26/2016] [facility] 27Result Comment: [11/26/2016] [facility] 28Result Comment: [11/26/2016] [facility] 29Result Comment: [11/26/2016] [facility] 30Result Comment: [11/26/2016] [facility] 31Result Comment: [11/26/2016] [facility] 32Result Comment: [11/26/2016] [facility] 33Result Comment: [11/26/2016] [facility] Medications Flovent HFA 110 mcg/inh inhalation [...] 4 Refills, Maintenance, 02/26/20 12:05:00 EDT, Tablet, [facility], 153, cm, 02/26/20 12:03:00 EDT, Height, 62, kg, 01/02/20 11:03:00 EDT, Dry Weight Start Date: 02/26/20 Status: Ordered lisinopril 20 mg oral tablet 20 mg, 1, tablet, By Mouth, Daily, # 30 tablet, Refills 0, Tot. Refills 0, Maintenance, 05/05/20 7:46:00 EDT, Route to Pharmacy Electronically, [facility], 153, cm, 05/05/20 7:32:00 [...]
--- OUTSIDE RECORDS SUMMARY | 2024-05-20 07:44 | XMS_ITS | Continuity of Care Document ---
Author Organization [facility] Iain Ethan lt Address [address] [place] [address]- Care Team Providers Care Swing Type Lathe Operator Name Role Phone Karthik HENLEY, Isaiah Douglas Primary Care Physician [facility] Date(s): 02/29/20 - 03/30/20 [facility] Adult [address] [place] [address]- [facility] Allergies, Adverse Reactions, Alerts Substance Reaction [...] Guardian Refuses 1Result Comment: [facility]-[id number] 2Location History: [facility] [place] 3Result Comment: [11/26/2016] [facility] 4Result Comment: [11/26/2016] [facility] 5Result Comment: [11/26/2016] [facility] 6Result Comment: [11/26/2016] [facility] 7Result Comment: [11/26/2016] [facility] 8Result Comment: [11/26/2016] [facility] 9Result Comment: [11/26/2016] [facility] 10Result Comment: [11/26/2016] [facility] 11Result Comment: [11/26/2016] [facility] 12Result Comment: [11/26/2016] [facility] 13Result Comment: [11/26/2016] [facility] 14Result Comment: [11/26/2016] [facility] 15Result Comment: [11/26/2016] [facility] 16Result Comment: [11/26/2016] [facility] 17Result Comment: [11/26/2016] [facility] 18Result Comment: [11/26/2016] [facility] 19Result Comment: [11/26/2016] [facility] 20Result Comment: [11/26/2016] [facility] 21Result Comment: [11/26/2016] [facility] 22Result Comment: [11/26/2016] [facility] 23Result Comment: [11/26/2016] [facility] 24Result Comment: [11/26/2016] [facility] 25Result Comment: [11/26/2016] [facility] 26Result Comment: [11/26/2016] [facility] 27Result Comment: [11/26/2016] [facility] 28Result Comment: [11/26/2016] [facility] 29Result Comment: [11/26/2016] [facility] 30Result Comment: [11/26/2016] [facility] 31Result Comment: [11/26/2016] [facility] 32Result Comment: [11/26/2016] [facility] 33Result Comment: [11/26/2016] [facility] Medications acetaminophen-oxyCODONE 325 mg-5 mg oral [...]
--- OUTSIDE RECORDS SUMMARY | 2024-05-20 07:44 | XMS_ITS | Continuity of Care Document ---
Author Organization [facility] Address [address] [place] [address]- Care Team Providers Care Knocker Out Name Role Phone Karthik HENLEY, Isaiah Douglas Primary Care Physician [phone] [facility]counter [facility] Date(s): 02/29/20 - 03/30/20 [facility] [address] [place] [address]- [facility] Attending Physician: Admtr, Segundo Admitting Physician: Admtr, Segundo Referring Physician: Admtr, Ar8 Allergies, Adverse Reactions, [...] Or Guardian Refuses 1Result Comment: [facility]-[id number] 2Location History: [facility] [place] 3Result Comment: [11/26/2016] [facility] 4Result Comment: [11/26/2016] [facility] 5Result Comment: [11/26/2016] [facility] 6Result Comment: [11/26/2016] [facility] 7Result Comment: [11/26/2016] [facility] 8Result Comment: [11/26/2016] [facility] 9Result Comment: [11/26/2016] [facility] 10Result Comment: [11/26/2016] [facility] 11Result Comment: [11/26/2016] [facility] 12Result Comment: [11/26/2016] [facility] 13Result Comment: [11/26/2016] [facility] 14Result Comment: [11/26/2016] [facility] 15Result Comment: [11/26/2016] [facility] 16Result Comment: [11/26/2016] [facility] 17Result Comment: [11/26/2016] [facility] 18Result Comment: [11/26/2016] [facility] 19Result Comment: [11/26/2016] [facility] 20Result Comment: [11/26/2016] [facility] 21Result Comment: [11/26/2016] [facility] 22Result Comment: [11/26/2016] [facility] 23Result Comment: [11/26/2016] [facility] 24Result Comment: [11/26/2016] [facility] 25Result Comment: [11/26/2016] [facility] 26Result Comment: [11/26/2016] [facility] 27Result Comment: [11/26/2016] [facility] 28Result Comment: [11/26/2016] [facility] 29Result Comment: [11/26/2016] [facility] 30Result Comment: [11/26/2016] [facility] 31Result Comment: [11/26/2016] [facility] 32Result Comment: [11/26/2016] [facility] 33Result Comment: [11/26/2016] [facility] Medications acetaminophen-oxyCODONE 325 mg-5 mg oral [...]
--- OUTSIDE RECORDS SUMMARY | 2024-05-20 07:44 | XMS_ITS | Continuity of Care Document ---
Author Organization [facility] Iain Ethan lt Address [address] [place] [address]- Care Team Providers Care Color Technician Name Role Phone Karthik HENLEY, Isaiah Douglas Primary Care Physician [phone] [place] [facility] [place] 11/07/20 - 12/07/20 [facility] Adult [address] [place] [address]- Allergies, Adverse Reactions, Alerts Substance Reaction Severity [...] 1Result Comment: [facility]-[id number] 2Location History: [facility] [place] 3Result Comment: [11/26/2016] [facility] 4Result Comment: [11/26/2016] [facility] 5Result Comment: [11/26/2016] [facility] 6Result Comment: [11/26/2016] [facility] 7Result Comment: [11/26/2016] [facility] 8Result Comment: [11/26/2016] [facility] 9Result Comment: [11/26/2016] [facility] 10Result Comment: [11/26/2016] [facility] 11Result Comment: [11/26/2016] [facility] 12Result Comment: [11/26/2016] [facility] 13Result Comment: [11/26/2016] [facility] 14Result Comment: [11/26/2016] [facility] 15Result Comment: [11/26/2016] [facility] 16Result Comment: [11/26/2016] [facility] 17Result Comment: [11/26/2016] [facility] 18Result Comment: [11/26/2016] [facility] 19Result Comment: [11/26/2016] [facility] 20Result Comment: [11/26/2016] [facility] 21Result Comment: [11/26/2016] [facility] 22Result Comment: [11/26/2016] [facility] 23Result Comment: [11/26/2016] [facility] 24Result Comment: [11/26/2016] [facility] 25Result Comment: [11/26/2016] [facility] 26Result Comment: [11/26/2016] [facility] 27Result Comment: [11/26/2016] [facility] 28Result Comment: [11/26/2016] [facility] 29Result Comment: [11/26/2016] [facility] 30Result Comment: [11/26/2016] [facility] 31Result Comment: [11/26/2016] [facility] 32Result Comment: [11/26/2016] [facility] 33Result Comment: [11/26/2016] [facility] Medications lidocaine 4% topical film 1 [...]
--- OUTSIDE RECORDS SUMMARY | 2024-05-20 07:44 | XMS_ITS | Continuity of Care Document ---
Author Organization [facility] Ethan lt Address [address] [place] [address]- Care Team Providers Care Marketing Support Assistant Name Role Phone Isaiah Angeles MD Primary Care Physician [phone] [facility] Date(s): 02/13/23 - 02/20/23 [facility] Adult [address] [place] [address]- Attending Physician: Isaiah Angeles MD Allergies, Adverse [...] Reason tetanus-diphtheria toxoids (Td) 1 08/15/22 Given [id number] bivalent booster vax 07/05/22 Recorded influenza virus [...] Given Parent Or Guardian Refuses 1Result Comment: [id number] 2Result Comment: [facility] [place] 3Result Comment: [id number] 4Location History: [facility] [place] 5Result Comment: [11/26/2016] [facility] 6Result [...] 35Result Comment: [11/26/2016] [facility] Medications Budesonide 1 mg, 1mg/2ml, Refills [...] oldest [Reference Range]: 1 Height 152.40 cm (02/13/23 2:23 PM) Weight 68.4 kg (02/13/23 2:23 PM) Oxygen Saturation [94-100 %] 99 % (02/13/23 2:23 PM) Pulse Rate [55-90 bpm] 86 bpm (02/13/23 2:23 PM) Body Mass Index [18.5-24.99 kg/m2] 29.45 kg/m2 *H* (02/13/23 2:23 PM) Blood Pressure [90-138/55-84 mm Hg] 119/ 85mm Hg (02/13/23 2:23 PM) Mode of Delivery (Oxygen) Room air (02/13/23 2:23 PM) Blood pressure sites Arm, left (02/13/23 2:23 PM) Weight Obtained Via Standing scale (02/13/23 2:23 PM) Social History Social History Type Response Smoking Status Never smoker entered on: 10/24/17 Sex Patient Care team information Care Team Personnel Name: Margaux Vivas RN Position: [facility] RN Member Role: Primary Care Nurse Name: Live Leyva MD Position: [facility] Physician -Physician Practices Member Role: Lifetime Consulting Physician Name: Jeanmarie Lopez MD Position: [facility] Renal MD Member Role: Lifetime Consulting Physician Address: Address: [address] [place] [address], [address] [facility] [place], [place] [address] Name: Lashonda Clifford Position: [facility] Outreach Member Role: Lifetime Consulting Physician Name: Isaiah Angeles MD Position: [facility] Physician - Primary Care Member Role: PCP Address: Address: [address] [place] [address]- Name: Annalise Lara RN Position: [facility] RN Member Role: Primary Care Nurse Name: Mark Wilkes MD Position: [facility] Renal MD Member Role: Lifetime Consulting Physician Address: Address: [address] [place] [address] [facility] [place], [place] [address] Name: Bibiana Treviño RN Position: [facility] RN Member Role: Primary Care Nurse Care Team Related Persons Name: MIRA MILLER Address: [place] [phone] Name: ANGELA MIRA Address: [address] [id number] Name: AKASHRICARDOJANETH MIRA Address: [address] [id number] Name: MIRA MILLER Address: [place] [id number] Name: AKASHRICARDOJANETHMIRA Address: [place] [id number] Name: AKASHRICARDOJANETHMIRA Address: [address] [id number] Name: AKASHMIRA CARTY Address: [address] [id number] Name: PRATEEK MILLER Address: [address] [address] Name: BELEN MILLER Address: [address] [address] Name: BELEN MILLER Address: [address] [address]
--- OUTSIDE RECORDS SUMMARY | 2024-05-20 07:44 | XMS_ITS | Continuity of Care Document ---
Author Organization [facility] Iain Ethan lt Address [address] [place] [address]- Care Team Providers Care Lead Trainer Name Role Phone Karthik HENLEY, Isaiah Douglas Primary Care Physician [phone] [facility] Date[facility]s): 05/05/20 - 06/04/20 [facility] Adult [address] [place] [address]- [facility] Allergies, Adverse Reactions, Alerts Substance [...] Refuses 1Result Comment: [facility]-[id number] 2Location History: [facility] [place] 3Result Comment: [11/26/2016] [facility] 4Result Comment: [11/26/2016] [facility] 5Result Comment: [11/26/2016] [facility] 6Result Comment: [11/26/2016] [facility] 7Result Comment: [11/26/2016] [facility] 8Result Comment: [11/26/2016] [facility] 9Result Comment: [11/26/2016] [facility] 10Result Comment: [11/26/2016] [facility] 11Result Comment: [11/26/2016] [facility] 12Result Comment: [11/26/2016] [facility] 13Result Comment: [11/26/2016] [facility] 14Result Comment: [11/26/2016] [facility] 15Result Comment: [11/26/2016] [facility] 16Result Comment: [11/26/2016] [facility] 17Result Comment: [11/26/2016] [facility] 18Result Comment: [11/26/2016] [facility] 19Result Comment: [11/26/2016] [facility] 20Result Comment: [11/26/2016] [facility] 21Result Comment: [11/26/2016] [facility] 22Result Comment: [11/26/2016] [facility] 23Result Comment: [11/26/2016] [facility] 24Result Comment: [11/26/2016] [facility] 25Result Comment: [11/26/2016] [facility] 26Result Comment: [11/26/2016] [facility] 27Result Comment: [11/26/2016] [facility] 28Result Comment: [11/26/2016] [facility] 29Result Comment: [11/26/2016] [facility] 30Result Comment: [11/26/2016] [facility] 31Result Comment: [11/26/2016] [facility] 32Result Comment: [11/26/2016] [facility] 33Result Comment: [11/26/2016] [facility] Medications Flovent HFA 110 mcg/inh inhalation [...] 4 Refills, Maintenance, 02/26/20 12:05:00 EDT, Tablet, [facility], 153, cm, 02/26/20 12:03:00 EDT, Height, 62, kg, 01/02/20 11:03:00 EDT, Dry Weight Start Date: 02/26/20 Status: Ordered lisinopril 20 mg oral tablet 20 mg, 1, tablet, By Mouth, Daily, # 30 tablet, Refills 0, Tot. Refills 0, Maintenance, 05/05/20 7:46:00 EDT, Route to Pharmacy Electronically, [facility], 153, cm, 05/05/20 7:32:00 EDT, [...]
--- OUTSIDE RECORDS SUMMARY | 2024-05-20 07:44 | XMS_ITS | Continuity of Care Document ---
Author Organization [facility] Address [address] [place] [address]- Care Team Providers Care Checkout Operator Name Role Phone Karthik HENLEY, Isaiah Douglas Primary Care Physician [place] [facility] [place]14[place]22 - 12/14/22 [facility] [address] [place] [address]- Allergies, Adverse Reactions, Alerts Substance Reaction Severity Status codeine 1 Surgical adhesive ta pe itching Active Adhesive Bandage 2 Rash Active riTUXimab 3 Severe Active 1hives 2surgical tape allergy as per family 3developed anaphylaxis with throat closure sensation and facial swelling needed brief epinephrine drip Immunizations Given and Recorded Vaccine Date Status Refusal Reason tetanus-diphtheria toxoids (Td) 1 08/15/22 Given [id number] bivalent booster vax 07/05/22 Recorded influenza virus [...] Given Parent Or Guardian Refuses 1Result Comment: [id number] 2Result Comment: [facility] [place] 3Result Comment: [facility]-[id number] 4Location History: [facility] [place] 5Result Comment: [11/26/2016] [facility] 6Result Comment: [11/26/2016] [facility] 7Result Comment: [11/26/2016] [facility] 8Result Comment: [11/26/2016] [facility] 9Result Comment: [11/26/2016] [facility] 10Result Comment: [11/26/2016] [facility] 11Result Comment: [11/26/2016] [facility] 12Result Comment: [11/26/2016] [facility] 13Result Comment: [11/26/2016] [facility] 14Result Comment: [11/26/2016] [facility] 15Result Comment: [11/26/2016] [facility] 16Result Comment: [11/26/2016] [facility] 17Result Comment: [11/26/2016] [facility] 18Result Comment: [11/26/2016] [facility] 19Result Comment: [11/26/2016] [facility] 20Result Comment: [11/26/2016] [facility] 21Result Comment: [11/26/2016] [facility] 22Result Comment: [11/26/2016] [facility] 23Result Comment: [11/26/2016] [facility] 24Result Comment: [11/26/2016] [facility] 25Result Comment: [11/26/2016] [facility] 26Result Comment: [11/26/2016] [facility] 27Result Comment: [11/26/2016] [facility] 28Result Comment: [11/26/2016] [facility] 29Result Comment: [11/26/2016] [facility] 30Result Comment: [11/26/2016] [facility] 31Result Comment: [11/26/2016] [facility] 32Result Comment: [11/26/2016] [facility] 33Result Comment: [11/26/2016] [facility] 34Result Comment: [11/26/2016] [facility] 35Result Comment: [11/26/2016] [facility] Medications cholecalciferol 50 mcg (2000 intl [...] Role: Lifetime Consulting Physician Address: Address: [address] [place] [address], [address] [facility] [address] Name: Lashonda Clifford Position: [facility] Outreach Member Role: Lifetime Consulting Physician Name: Tiera Wadsworth RN Position: [facility] RN Member Role: Primary Care Nurse Name: Isaiah Angeles MD Position: [facility] Primary Care Physician Member Role: PCP Address: Address: [address] [place] [address]- Name: Annalise Lara RN Position: [facility] RN Member Role: Primary Care Nurse Name: Mark Wilkes MD Position: [facility] Renal MD Member Role: Lifetime Consulting Physician Address: Address: [address] [place] [address] [facility] [place], [place] [address] Name: Bibiana Treviño RN Position: [facility] RN Member Role: Primary Care Nurse Care Team Related Persons Name: CLAUDETTE MILLERE Address: [address] [id number] Name: AKASHMIRA CARTY Address: [place] [phone] Name: ANGELAMIRA Address: [address] [id number] Name: AKASHMIRA CARTY Address: [address] [id number] Name: AKASHMIRA CARTY Address: [address] [phone] Name: ANGELAMIRA Address: [address] [address] Name: AKASHMIRA CARTY Address: [address] [phone] Name: PRATEEK MILLER Address: [address] [address] Name: BELEN MILLER Address: home [address] [place] [address] Name: BELEN MILLER Address: [address] [address]
--- OUTSIDE RECORDS SUMMARY | 2024-05-20 07:44 | XMS_ITS | Continuity of Care Document ---
Author Organization [facility] Iain Ethan lt Address [address] [place] [address]- Care Team Providers Care Inspector Repairer [place] Name Role Phone Karthik HENLEY, Isaiah Douglas Primary Care Physician [facility] Date[facility]s): 03[facility]24[facility]20 - 04/23/20 [facility] Adult [address] [place] [address]- [facility] Allergies, Adverse Reactions, Alerts Substance Reaction Severity [...] Guardian Refuses 1Result Comment: [facility]-[id number] 2Location History: [facility] [place] 3Result Comment: [11/26/2016] [facility] 4Result Comment: [11/26/2016] [facility] 5Result Comment: [11/26/2016] [facility] 6Result Comment: [11/26/2016] [facility] 7Result Comment: [11/26/2016] [facility] 8Result Comment: [11/26/2016] [facility] 9Result Comment: [11/26/2016] [facility] 10Result Comment: [11/26/2016] [facility] 11Result Comment: [11/26/2016] [facility] 12Result Comment: [11/26/2016] [facility] 13Result Comment: [11/26/2016] [facility] 14Result Comment: [11/26/2016] [facility] 15Result Comment: [11/26/2016] [facility] 16Result Comment: [11/26/2016] [facility] 17Result Comment: [11/26/2016] [facility] 18Result Comment: [11/26/2016] [facility] 19Result Comment: [11/26/2016] [facility] 20Result Comment: [11/26/2016] [facility] 21Result Comment: [11/26/2016] [facility] 22Result Comment: [11/26/2016] [facility] 23Result Comment: [11/26/2016] [facility] 24Result Comment: [11/26/2016] [facility] 25Result Comment: [11/26/2016] [facility] 26Result Comment: [11/26/2016] [facility] 27Result Comment: [11/26/2016] [facility] 28Result Comment: [11/26/2016] [facility] 29Result Comment: [11/26/2016] [facility] 30Result Comment: [11/26/2016] [facility] 31Result Comment: [11/26/2016] [facility] 32Result Comment: [11/26/2016] [facility] 33Result Comment: [11/26/2016] [facility] Medications acetaminophen-oxyCODONE 325 mg-5 mg oral [...]
--- OUTSIDE RECORDS SUMMARY | 2024-05-20 07:44 | XMS_ITS | Continuity of Care Document ---
Author Organization [facility] Ethan lt Address [address] [place] [address]- Care Team Providers Care Well Flow Operator Name Role Phone Karthik HENLEY, Isaiah Douglas Primary Care Physician [place] [facility] [place] 11[place]10/20 [facility] Adult [address] [place] [address]- Allergies, Adverse Reactions, Alerts Substance Reaction Severity [...] Parent Or Guardian Refuses 1Result Comment: [facility]-[id number] 2Location History: [facility] [place] 3Result Comment: [11/26/2016] [facility] 4Result Comment: [11/26/2016] [facility] 5Result Comment: [11/26/2016] [facility] 6Result Comment: [11/26/2016] [facility] 7Result Comment: [11/26/2016] [facility] 8Result Comment: [11/26/2016] [facility] 9Result Comment: [11/26/2016] [facility] 10Result Comment: [11/26/2016] [facility] 11Result Comment: [11/26/2016] [facility] 12Result Comment: [11/26/2016] [facility] 13Result Comment: [11/26/2016] [facility] 14Result Comment: [11/26/2016] [facility] 15Result Comment: [11/26/2016] [facility] 16Result Comment: [11/26/2016] [facility] 17Result Comment: [11/26/2016] [facility] 18Result Comment: [11/26/2016] [facility] 19Result Comment: [11/26/2016] [facility] 20Result Comment: [11/26/2016] [facility] 21Result Comment: [11/26/2016] [facility] 22Result Comment: [11/26/2016] [facility] 23Result Comment: [11/26/2016] [facility] 24Result Comment: [11/26/2016] [facility] 25Result Comment: [11/26/2016] [facility] 26Result Comment: [11/26/2016] [facility] 27Result Comment: [11/26/2016] [facility] 28Result Comment: [11/26/2016] [facility] 29Result Comment: [11/26/2016] [facility] 30Result Comment: [11/26/2016] [facility] 31Result Comment: [11/26/2016] [facility] 32Result Comment: [11/26/2016] [facility] 33Result Comment: [11/26/2016] [facility] Medications lidocaine 4% topical film 1 [...]
--- OUTSIDE RECORDS SUMMARY | 2024-05-20 07:44 | XMS_ITS | Continuity of Care Document ---
Author Organization [facility] Address [address] [place] [address]- Care Team Providers Care Hearing Therapist Name Role Phone Karthik HENLEY, Isaiah Douglas Primary Care Physician [place] [facility] [place]14/23 [facility] [address] [place] [address]- Allergies, Adverse Reactions, Alerts Substance Reaction Severity [...] corded tetanus-diphtheria toxoids (Td) 10 08/15/22 Given [id number] bivalent booster vax 07/05/22 Recorded SARS-CoV-2 (COVID-19) [...] Comment: [facility] [place] 2Result Comment: [facility]-[id number] 3Location History: [facility] [place] 4Result Comment: [11/26/2016] [facility] 5Result Comment: [11/26/2016] [facility] 6Result Comment: [11/26/2016] [facility] 7Result Comment: [11/26/2016] [facility] 8Result Comment: [11/26/2016] [facility] 9Result Comment: [11/26/2016] [facility] 10Result Comment: [id number] 11Result Comment: [11/26/2016] [facility] 12Result Comment: [11/26/2016] [facility] 13Result Comment: [11/26/2016] [facility] 14Result Comment: [11/26/2016] [facility] 15Result Comment: [11/26/2016] [facility] 16Result Comment: [11/26/2016] [facility] 17Result Comment: [11/26/2016] [facility] 18Result Comment: [11/26/2016] [facility] 19Result Comment: [11/26/2016] [facility] 20Result Comment: [11/26/2016] [facility] 21Result Comment: [11/26/2016] [facility] 22Result Comment: [11/26/2016] [facility] 23Result Comment: [11/26/2016] [facility] 24Result Comment: [11/26/2016] [facility] 25Result Comment: [11/26/2016] [facility] 26Result Comment: [11/26/2016] [facility] 27Result Comment: [11/26/2016] [facility] 28Result Comment: [11/26/2016] [facility] 29Result Comment: [11/26/2016] [facility] 30Result Comment: [11/26/2016] [facility] 31Result Comment: [11/26/2016] [facility] 32Result Comment: [11/26/2016] [facility] 33Result Comment: [11/26/2016] [facility] 34Result Comment: [11/26/2016] [facility] 35Result Comment: [11/26/2016] [facility] Medications [...] Role: Lifetime Consulting Physician Address: Address: [address] [place] [address] [address] [place] [address]- Name: Lashonda Clifford Position: [facility] Outreach Member Role: Lifetime Consulting Physician Name: Tiera Wadsworth RN Position: [facility] RN Member Role: Primary Care Nurse Name: Isaiah Angeles MD Position: [facility] Physician - Primary Care Member Role: PCP Address: Address: [address] [place] [address]- [place] Name: Annalise Lara RN Position: S RN Member Role: Primary Care Nurse Name: Mark Wilkes MD Position: [facility] Renal MD Member Role: Lifetime Consulting Physician Address: Address: [address] [place] [address] [facility] [place] [address]- Name: Bibiana Treviño RN Position: S RN Member Role: Primary Care Nurse Care Team Related Persons Name: MIRA MILLER Address: home [address] [phone] Name: MIRA MILLER Address: [place] Address: home [address] [place] [address] [place] Name: PRATEEK MILLER Address: home [address] [place] [address] Name: BELEN MILLER Address: home [address] [place] [address] Name: BEELN MILLER Address: home [address] [place] [address]
--- OUTSIDE RECORDS SUMMARY | 2024-05-20 07:44 | XMS_ITS | Continuity of Care Document ---
Author Organization [facility] Ethan lt Address [address] [place] [address]- Care Team Providers Care Bill Of Lading Clerk Name Role Phone Karthik HENLEY, Isaiah Douglas Primary Care Physician En[place] [facility] [place] Date(s): 04/05/21 - 05/05/21 [facility] Adult [address] [place] [address]- Allergies, Adverse Reactions, Alerts Substance Reaction Severity [...] Guardian Refuses 1Result Comment: [facility]-[id number] 2Location History: [facility] [place] 3Result Comment: [11/26/2016] [facility] 4Result Comment: [11/26/2016] [facility] 5Result Comment: [11/26/2016] [facility] 6Result Comment: [11/26/2016] [facility] 7Result Comment: [11/26/2016] [facility] 8Result Comment: [11/26/2016] [facility] 9Result Comment: [11/26/2016] [facility] 10Result Comment: [11/26/2016] [facility] 11Result Comment: [11/26/2016] [facility] 12Result Comment: [11/26/2016] [facility] 13Result Comment: [11/26/2016] [facility] 14Result Comment: [11/26/2016] [facility] 15Result Comment: [11/26/2016] [facility] 16Result Comment: [11/26/2016] [facility] 17Result Comment: [11/26/2016] [facility] 18Result Comment: [11/26/2016] [facility] 19Result Comment: [11/26/2016] [facility] 20Result Comment: [11/26/2016] [facility] 21Result Comment: [11/26/2016] [facility] 22Result Comment: [11/26/2016] [facility] 23Result Comment: [11/26/2016] [facility] 24Result Comment: [11/26/2016] [facility] 25Result Comment: [11/26/2016] [facility] 26Result Comment: [11/26/2016] [facility] 27Result Comment: [11/26/2016] [facility] 28Result Comment: [11/26/2016] [facility] 29Result Comment: [11/26/2016] [facility] 30Result Comment: [11/26/2016] [facility] 31Result Comment: [11/26/2016] [facility] 32Result Comment: [11/26/2016] [facility] 33Result Comment: [11/26/2016] [facility] Medications levothyroxine 125 mcg (0.125 mg) [...]
--- OUTSIDE RECORDS SUMMARY | 2024-05-20 07:44 | XMS_ITS | Continuity of Care Document ---
Author Organization [facility] Ethan lt Address [address] [place] [address]- Care Team Providers Care Furniture Servicer Name Role Phone Karthik HENLEY, Isaiah Douglas Primary Care Physician [place] [facility] [place] 07/19/22 [facility] Adult [address] [place] [address]- Allergies, Adverse Reactions, Alerts Substance Reaction Severity [...] Comment: [facility] [place] 2Result Comment: [facility]-[id number] 3Location History: [facility] [place] 4Result Comment: [11/26/2016] [facility] 5Result Comment: [11/26/2016] [facility] 6Result Comment: [11/26/2016] [facility] 7Result Comment: [11/26/2016] [facility] 8Result Comment: [11/26/2016] [facility] 9Result Comment: [11/26/2016] [facility] 10Result Comment: [11/26/2016] [facility] 11Result Comment: [11/26/2016] [facility] 12Result Comment: [11/26/2016] [facility] 13Result Comment: [11/26/2016] [facility] 14Result Comment: [11/26/2016] [facility] 15Result Comment: [11/26/2016] [facility] 16Result Comment: [11/26/2016] [facility] 17Result Comment: [11/26/2016] [facility] 18Result Comment: [11/26/2016] [facility] 19Result Comment: [11/26/2016] [facility] 20Result Comment: [11/26/2016] [facility] 21Result Comment: [11/26/2016] [facility] 22Result Comment: [11/26/2016] [facility] 23Result Comment: [11/26/2016] [facility] 24Result Comment: [11/26/2016] [facility] 25Result Comment: [11/26/2016] [facility] 26Result Comment: [11/26/2016] [facility] 27Result Comment: [11/26/2016] [facility] 28Result Comment: [11/26/2016] [facility] 29Result Comment: [11/26/2016] [facility] 30Result Comment: [11/26/2016] [facility] 31Result Comment: [11/26/2016] [facility] 32Result Comment: [11/26/2016] [facility] 33Result Comment: [11/26/2016] [facility] 34Result Comment: [11/26/2016] [facility] Medications Flovent 110 mcg Inhaler HFA [...] Name: Margaux Vivas RN Position: [facility] RN Member Role: Primary Care Nurse Name: Live Leyva MD Position: [facility] Physician -Physician Practices Member Role: Lifetime Consulting Physician Name: Jeanmarie Lopez MD Position: [facility] Renal MD Member Role: Lifetime Consulting Physician Address: Address: [address] [place] [address], [address] [facility] [place], [place] [address] Name: Lashonda Clifford Position: [facility] Outreach Member Role: Lifetime Consulting Physician Name: Tiera Wadsworth RN Position: [facility] RN Member Role: Primary Care Nurse Name: Isaiah Angeles MD Position: [facility] Primary Care Physician Member Role: PCP Address: Address: [address] [place] [address]- Name: Annalise Lara RN Position: [facility] RN Member Role: Primary Care Nurse Name: Mark Wilkes MD Position: [facility] Renal MD Member Role: Lifetime Consulting Physician Address: Address: [address] [place] [address] [facility] [place] [address]- Name: Bibiana Treviño RN Position: [facility] RN Member Role: Primary Care Nurse Care Team Related Persons Name: MIRA MILLER Address: home [address] [facility] [phone] Name: AKASHMIRA CARTY Address: home [address] [id number] Name: MIRA MILLER Address: [address] [id number] Name: MIRA MILLER Address: [address] [phone] Name: MIRA MILLER Address: [place] [phone] Name: MIRA MILLER Address: [address] [id number] Name: MIRA MILLER Address: [place] [id number] Name: PRATEEK MILLER Address: [address] [address] Name: BELEN MILLER Address: [address] [address] Name: BELEN MILLER Address: [address] [address]
--- OUTSIDE RECORDS SUMMARY | 2024-05-20 07:44 | XMS_ITS | Continuity of Care Document ---
Author Organization [facility] Address [address] [place] [address]- Care Team Providers Care Quantitative Research Analyst Name Role Phone Karthik EHNLEY, Isaiah Douglas Primary Care Physician [phone] [place] [facility] [place] 06/06/23 - 07/06/23 [facility] [address] [place] [address]- Allergies, Adverse Reactions, Alerts Substance Reaction Severity [...] corded tetanus-diphtheria toxoids (Td) 10 08/15/22 Given [id number] bivalent booster vax 07/05/22 Recorded SARS-CoV-2 (COVID-19) [...] [facility] [place] 2Result Comment: [facility]-[id number] 3Location History: [facility] [place] 4Result Comment: [11/26/2016] [facility] 5Result Comment: [11/26/2016] [facility] 6Result Comment: [11/26/2016] [facility] 7Result Comment: [11/26/2016] [facility] 8Result Comment: [11/26/2016] [facility] 9Result Comment: [11/26/2016] [facility] 10Result Comment: [id number] 11Result Comment: [11/26/2016] [facility] 12Result Comment: [11/26/2016] [facility] 13Result Comment: [11/26/2016] [facility] 14Result Comment: [11/26/2016] [facility] 15Result Comment: [11/26/2016] [facility] 16Result Comment: [11/26/2016] [facility] 17Result Comment: [11/26/2016] [facility] 18Result Comment: [11/26/2016] [facility] 19Result Comment: [11/26/2016] [facility] 20Result Comment: [11/26/2016] [facility] 21Result Comment: [11/26/2016] [facility] 22Result Comment: [11/26/2016] [facility] 23Result Comment: [11/26/2016] [facility] 24Result Comment: [11/26/2016] [facility] 25Result Comment: [11/26/2016] [facility] 26Result Comment: [11/26/2016] [facility] 27Result Comment: [11/26/2016] [facility] 28Result Comment: [11/26/2016] [facility] 29Result Comment: [11/26/2016] [facility] 30Result Comment: [11/26/2016] [facility] 31Result Comment: [11/26/2016] [facility] 32Result Comment: [11/26/2016] [facility] 33Result Comment: [11/26/2016] [facility] 34Result Comment: [11/26/2016] [facility] 35Result Comment: [11/26/2016] [facility] Medications Flovent 110 mcg Inhaler HFA [...] Name: Margaux Vivas RN Position: [facility] RN Member Role: Primary Care Nurse Name: Live Leyva MD Position: [facility] Physician -Physician Practices Member Role: Lifetime Consulting Physician Name: Jeanmarie Lopez MD Position: [facility] Renal MD Member Role: Lifetime Consulting Physician Address: Address: [address] [place] [address] [address] [place] [address]- Name: Lashonda Clifford Position: [facility] Outreach Member Role: Lifetime Consulting Physician Name: Tiera Wadsworth RN Position: [facility] RN Member Role: Primary Care Nurse Name: Isaiah Angeles MD Position: [facility] Physician - Primary Care Member Role: PCP Address: Address: [address] [place] [address]- [place] Name: Annalise Lara RN Position: S RN Member Role: Primary Care Nurse Name: Mark Wilkes MD Position: S Renal MD Member Role: Lifetime Consulting Physician Address: Address: [address] [place] [address] [facility] [place] [address]- Name: Bibiana Treviño RN Position: S RN Member Role: Primary Care Nurse Care Team Related Persons Name: MIRA MILLER Address: home [address] [id number] Name: MIRA MILLER Address: [place] Address: [address] [place] [address] [place] Name: PRATEEK MILLER Address: [address] [place] [address] Name: BELEN MILLER Address: [address] [place] [address] Name: BELEN MILLER Address: home [address] [place] [address]
--- OUTSIDE RECORDS SUMMARY | 2024-05-20 07:44 | XMS_ITS | Continuity of Care Document ---
Author Organization [facility] Ethan lt Address [address] [place] [address]- Care Team Providers Care Medical Insurance Clerk Name Role Phone Karthik HENLEY, Isaiah Douglas Primary Care Physician [place] [facility] [place] 10/22/22 - 11/21/22 [facility] Adult [address] [place] [address]- Allergies, Adverse Reactions, Alerts Substance Reaction Severity Status codeine 1 Surgical adhesive ta pe itching Active Adhesive Bandage 2 Rash Active riTUXimab 3 Severe Active 1hives 2surgical tape allergy as per family 3developed anaphylaxis with throat closure sensation and facial swelling needed brief epinephrine drip Immunizations Given and Recorded Vaccine Date Status Refusal Reason tetanus-diphtheria toxoids (Td) 1 08/15/22 Given [id number] bivalent booster vax 07/05/22 Recorded influenza virus [...] Given Parent Or Guardian Refuses 1Result Comment: [id number] 2Result Comment: [facility] [place] 3Result Comment: [facility]-[id number] 4Location History: [facility] [place] 5Result Comment: [11/26/2016] [facility] 6Result Comment: [11/26/2016] [facility] 7Result Comment: [11/26/2016] [facility] 8Result Comment: [11/26/2016] [facility] 9Result Comment: [11/26/2016] [facility] 10Result Comment: [11/26/2016] [facility] 11Result Comment: [11/26/2016] [facility] 12Result Comment: [11/26/2016] [facility] 13Result Comment: [11/26/2016] [facility] 14Result Comment: [11/26/2016] [facility] 15Result Comment: [11/26/2016] [facility] 16Result Comment: [11/26/2016] [facility] 17Result Comment: [11/26/2016] [facility] 18Result Comment: [11/26/2016] [facility] 19Result Comment: [11/26/2016] [facility] 20Result Comment: [11/26/2016] [facility] 21Result Comment: [11/26/2016] [facility] 22Result Comment: [11/26/2016] [facility] 23Result Comment: [11/26/2016] [facility] 24Result Comment: [11/26/2016] [facility] 25Result Comment: [11/26/2016] [facility] 26Result Comment: [11/26/2016] [facility] 27Result Comment: [11/26/2016] [facility] 28Result Comment: [11/26/2016] [facility] 29Result Comment: [11/26/2016] [facility] 30Result Comment: [11/26/2016] [facility] 31Result Comment: [11/26/2016] [facility] 32Result Comment: [11/26/2016] [facility] 33Result Comment: [11/26/2016] [facility] 34Result Comment: [11/26/2016] [facility] 35Result Comment: [11/26/2016] [facility] Medications cholecalciferol 50 mcg (2000 intl [...] Physician Name: John HENLEY, Jeanmarie Pratt Position: [facility] Renal MD Member Role: Lifetime Consulting Physician Address: Address: [address] [place] [address], [address] [facility] [place] [address]- [place] Name: Lashonda Clifford Position: [facility] Outreach Member Role: Lifetime Consulting Physician Name: Tiera Wadsworth RN Position: [facility] RN Member Role: Primary Care Nurse Name: Isaiah Angeles MD Position: [facility] Primary Care Physician Member Role: PCP Address: Address: [address] [place] [address]- [place] Name: Annalise Lara RN Position: [facility] RN Member Role: Primary Care Nurse Name: Mark Wilkes MD Position: [facility] Renal MD Member Role: Lifetime Consulting Physician Address: Address: [address] [facility] [place] [address]- [place] Name: Bibiana Treviño RN Position: [facility] RN Member Role: Primary Care Nurse Care Team Related Persons Name: AKASHRICARDOJANETH MIRA Address: [address] [phone] Name: AKASHMIRA CARTY Address: [address] [phone] Name: MIRA MILLER Address: [address] [phone] Name: MIRA MILLER Address: [address] [phone] Name: MIRA MILLER Address: [address] [phone] Name: AKASHMIRA CARTY Address: [address] [phone] Name: MIRA MILLER Address: [address] [phone] Name: PRATEEK MILLER Address: [address] [address] Name: BELEN MILLER Address: [address] [address] Name: BELEN MILLER Address: [address] [address]
--- OUTSIDE RECORDS SUMMARY | 2024-05-20 07:44 | XMS_ITS | Continuity of Care Document ---
Author Organization [facility] Ethan lt Address [address] [place] [address]- Care Team Providers Care Sales Account Specialist Name Role Phone Karthik HENLEY, Isaiah Douglas Primary Care Physician [phone] Encounter [facility] Date(s): 01/10/21 - 02/09/21 [facility] Adult [address] [place] [address]- Allergies, Adverse Reactions, Alerts Substance [...] 1Result Comment: [facility]-[id number] 2Location History: [facility] [place] 3Result Comment: [11/26/2016] [facility] 4Result Comment: [11/26/2016] [facility] 5Result Comment: [11/26/2016] [facility] 6Result Comment: [11/26/2016] [facility] 7Result Comment: [11/26/2016] [facility] 8Result Comment: [11/26/2016] [facility] 9Result Comment: [11/26/2016] [facility] 10Result Comment: [11/26/2016] [facility] 11Result Comment: [11/26/2016] [facility] 12Result Comment: [11/26/2016] [facility] 13Result Comment: [11/26/2016] [facility] 14Result Comment: [11/26/2016] [facility] 15Result Comment: [11/26/2016] [facility] 16Result Comment: [11/26/2016] [facility] 17Result Comment: [11/26/2016] [facility] 18Result Comment: [11/26/2016] [facility] 19Result Comment: [11/26/2016] [facility] 20Result Comment: [11/26/2016] [facility] 21Result Comment: [11/26/2016] [facility] 22Result Comment: [11/26/2016] [facility] 23Result Comment: [11/26/2016] [facility] 24Result Comment: [11/26/2016] [facility] 25Result Comment: [11/26/2016] [facility] 26Result Comment: [11/26/2016] [facility] 27Result Comment: [11/26/2016] [facility] 28Result Comment: [11/26/2016] [facility] 29Result Comment: [11/26/2016] [facility] 30Result Comment: [11/26/2016] [facility] 31Result Comment: [11/26/2016] [facility] 32Result Comment: [11/26/2016] [facility] 33Result Comment: [11/26/2016] [facility] Medications levothyroxine 125 mcg (0.125 mg) [...]
--- OUTSIDE RECORDS SUMMARY | 2024-05-20 07:44 | XMS_ITS | Continuity of Care Document ---
Author Organization [facility] Ethan lt Address [address] [place] [address]- Care Team Providers Care Integrated Circuit Design Engineer Name Role Phone Karthik HENLEY, Isaiah Douglas Primary Care Physician Encounter [facility] Date(s): 08/15/23 - 09/14/23 [facility] Adult [address] [place] [address]- Allergies, Adverse Reactions, Alerts Substance Reaction Severity [...] corded tetanus-diphtheria toxoids (Td) 10 08/15/22 Given [id number] bivalent booster vax 07/05/22 Recorded SARS-CoV-2 (COVID-19) [...] Comment: [facility] [place] 2Result Comment: [facility]-[id number] 3Location History: [facility] [place] 4Result Comment: [11/26/2016] [facility] 5Result Comment: [11/26/2016] [facility] 6Result Comment: [11/26/2016] [facility] 7Result Comment: [11/26/2016] [facility] 8Result Comment: [11/26/2016] [facility] 9Result Comment: [11/26/2016] [facility] 10Result Comment: [id number] 11Result Comment: [11/26/2016] [facility] 12Result Comment: [11/26/2016] [facility] 13Result Comment: [11/26/2016] [facility] 14Result Comment: [11/26/2016] [facility] 15Result Comment: [11/26/2016] [facility] 16Result Comment: [11/26/2016] [facility] 17Result Comment: [11/26/2016] [facility] 18Result Comment: [11/26/2016] [facility] 19Result Comment: [11/26/2016] [facility] 20Result Comment: [11/26/2016] [facility] 21Result Comment: [11/26/2016] [facility] 22Result Comment: [11/26/2016] [facility] 23Result Comment: [11/26/2016] [facility] 24Result Comment: [11/26/2016] [facility] 25Result Comment: [11/26/2016] [facility] 26Result Comment: [11/26/2016] [facility] 27Result Comment: [11/26/2016] [facility] 28Result Comment: [11/26/2016] [facility] 29Result Comment: [11/26/2016] [facility] 30Result Comment: [11/26/2016] [facility] 31Result Comment: [11/26/2016] [facility] 32Result Comment: [11/26/2016] [facility] 33Result Comment: [11/26/2016] [facility] 34Result Comment: [11/26/2016] [facility] 35Result Comment: [11/26/2016] [facility] Medications [...] Role: Lifetime Consulting Physician Address: Address: [address] [place] [address] [address] [facility] [place] [address]- Name: Lashonda Clifford Position: [facility] Outreach Member Role: Lifetime Consulting Physician Name: Tiera Wadsworth RN Position: [facility] RN Member Role: Primary Care Nurse Name: Isaiah Angeles MD Position: [facility] Physician - Primary Care Member Role: PCP Address: Address: [address] [place] [address]- [place] Name: Annalise Lara RN Position: S RN Member Role: Primary Care Nurse Name: Mark Wilkes MD Position: [facility] Renal MD Member Role: Lifetime Consulting Physician Address: Address: [address] [place] [address] [facility] [place] [address]- Name: Bibiana Treviño RN Position: [facility] RN Member Role: Primary Care Nurse Care Team Related Persons Name: MIRA MILLER Address: home [address] [phone] Name: MIRA MILLER Address: [place] Address: home [address] [place] [address] Name: PRATEEK MILLER Address: home [address] [place] [address] Name: BELEN MILLER Address: home [address] [place] [address] Name: BELEN MILLER Address: home [address] [place] [address]
--- OUTSIDE RECORDS SUMMARY | 2024-05-20 07:45 | XMS_ITS | Continuity of Care Document ---
Author Organization [facility] Address [address] [place] [address]- Care Team Providers Care Relay Mechanic Name Role Phone Karthik HENLEY, Isaiah Douglas Primary Care Physician [place] [facility] Date(s): 03/28/21 - 04/27/21 [facility] [address] [place] [address]- Allergies, Adverse Reactions, Alerts Substance Reaction Severity [...] Given Parent Or Guardian Refuses 1Result Comment: [facility]-[id number] 2Location History: [facility] [place] 3Result Comment: [11/26/2016] [facility] 4Result Comment: [11/26/2016] [facility] 5Result Comment: [11/26/2016] [facility] 6Result Comment: [11/26/2016] [facility] 7Result Comment: [11/26/2016] [facility] 8Result Comment: [11/26/2016] [facility] 9Result Comment: [11/26/2016] [facility] 10Result Comment: [11/26/2016] [facility] 11Result Comment: [11/26/2016] [facility] 12Result Comment: [11/26/2016] [facility] 13Result Comment: [11/26/2016] [facility] 14Result Comment: [11/26/2016] [facility] 15Result Comment: [11/26/2016] [facility] 16Result Comment: [11/26/2016] [facility] 17Result Comment: [11/26/2016] [facility] 18Result Comment: [11/26/2016] [facility] 19Result Comment: [11/26/2016] [facility] 20Result Comment: [11/26/2016] [facility] 21Result Comment: [11/26/2016] [facility] 22Result Comment: [11/26/2016] [facility] 23Result Comment: [11/26/2016] [facility] 24Result Comment: [11/26/2016] [facility] 25Result Comment: [11/26/2016] [facility] 26Result Comment: [11/26/2016] [facility] 27Result Comment: [11/26/2016] [facility] 28Result Comment: [11/26/2016] [facility] 29Result Comment: [11/26/2016] [facility] 30Result Comment: [11/26/2016] [facility] 31Result Comment: [11/26/2016] [facility] 32Result Comment: [11/26/2016] [facility] 33Result Comment: [11/26/2016] [facility] Medications levothyroxine 125 mcg (0.125 mg) [...]
--- OUTSIDE RECORDS SUMMARY | 2024-05-20 07:45 | XMS_ITS | Summary of Care ---
Author Organization [facility] Anesthesia [facility] d[facility] Address [address] [place], [place] [address]- Care Team Providers Care Scooter Mechanic Name Role Phone KATJA RASMUSSEN Primary Care Physician Encounter [facility] [id number] Date(s): 09/30/20 - 09/30/20 [facility] [address] [place], [place] [address]- [place] Encounter Diagnosis Other specified mononeuropathies(Final) - Myositis, unspecified(Final) - Discharge Disposition: Discharge Attending Physician: GOMEZ VALDEZ MD Referring Physician: KATJA RASMUSSEN Allergies, Adverse Reactions, Alerts Substance Reaction Severity Status codeine Hives Active Augmentin Vomiting Active Tape Active Problem List Condition Effective Dates Status Health Status Inform ant Abdominal pain(Confirmed) Active
--- OUTSIDE RECORDS SUMMARY | 2024-05-20 07:45 | XMS_ITS | Continuity of Care Document ---
Author Organization [facility] Address [address] [place] [address]- Care Team Providers Care Soft Tile Setter Name Role Phone Isaiah Angeles MD [id number] - 06[facility]29[facility] [address] [place] [address]- Attending Physician: Sammie Akins NP Admitting Physician: Sammie Akins NP Referring Physician: Isaiah Angeles MD Allergies, [...] Or Guardian Refuses 1Result Comment: [facility]-[id number] 2Location History: [facility] [place] 3Result Comment: [11/26/2016] [facility] 4Result Comment: [11/26/2016] [facility] 5Result Comment: [11/26/2016] [facility] 6Result Comment: [11/26/2016] [facility] 7Result Comment: [11/26/2016] [facility] 8Result Comment: [11/26/2016] [facility] 9Result Comment: [11/26/2016] [facility] 10Result Comment: [11/26/2016] [facility] 11Result Comment: [11/26/2016] [facility] 12Result Comment: [11/26/2016] [facility] 13Result Comment: [11/26/2016] [facility] 14Result Comment: [11/26/2016] [facility] 15Result Comment: [11/26/2016] [facility] 16Result Comment: [11/26/2016] [facility] 17Result Comment: [11/26/2016] [facility] 18Result Comment: [11/26/2016] [facility] 19Result Comment: [11/26/2016] [facility] 20Result Comment: [11/26/2016] [facility] 21Result Comment: [11/26/2016] [facility] 22Result Comment: [11/26/2016] [facility] 23Result Comment: [11/26/2016] [facility] 24Result Comment: [11/26/2016] [facility] 25Result Comment: [11/26/2016] [facility] 26Result Comment: [11/26/2016] [facility] 27Result Comment: [11/26/2016] [facility] 28Result Comment: [11/26/2016] [facility] 29Result Comment: [11/26/2016] [facility] 30Result Comment: [11/26/2016] [facility] 31Result Comment: [11/26/2016] [facility] 32Result Comment: [11/26/2016] [facility] 33Result Comment: [11/26/2016] [facility] Medications levothyroxine 125 mcg (0.125 mg) [...]
--- OUTSIDE RECORDS SUMMARY | 2024-05-20 07:45 | XMS_ITS | Summary of Care ---
Author Organization [facility] Anesthesia Foun dation Address [address] [place] [address]- Care Team Providers Care Exerciser Name Role Phone KATJA RASMUSSEN Primary Care Physician Encounter [facility] [id number] Date(s): 11/03/21 - 11/03/21 [facility] [address] [place] [address]- Encounter Diagnosis Intercostal neuropathy(Final) - Discharge Disposition: Discharge Attending Physician: GOMEZ VALDEZ MD Referring Physician: KATJA RASMUSSEN Allergies, Adverse Reactions, Alerts Substance Reaction Severity Status codeine Hives Active Augmentin Vomiting Active Tape Active Problem List Condition Effective Dates Status Health Status Inform ant Abdominal pain(Confirmed) Active
--- OUTSIDE RECORDS SUMMARY | 2024-05-20 07:45 | XMS_ITS | Continuity of Care Document ---
Author Organization [facility] Ethan lt Address [address] [place] [address]- Care Team Providers Care Prehemmer Name Role Phone Karthik HENLEY, Isaiah Douglas Primary Care Physician [place] [facility] [place] Date(s): 07/25/22 - 08/24/22 [facility] Adult [address] [place] [address]- Allergies, Adverse Reactions, Alerts Substance Reaction Severity Status codeine 1 Surgical adhesive ta pe itching Active Adhesive Bandage 2 Rash Active riTUXimab 3 Severe Active 1hives 2surgical tape allergy as per family 3developed anaphylaxis with throat closure sensation and facial swelling needed brief epinephrine drip Immunizations Given and Recorded Vaccine Date Status Refusal Reason tetanus-diphtheria toxoids (Td) 1 08/15/22 Given [id number] bivalent booster vax 07/05/22 Recorded influenza virus [...] Given Parent Or Guardian Refuses 1Result Comment: [id number] 2Result Comment: [facility] [place] 3Result Comment: [facility]-[id number] 4Location History: [facility] [place] 5Result Comment: [11/26/2016] [facility] 6Result Comment: [11/26/2016] [facility] 7Result Comment: [11/26/2016] [facility] 8Result Comment: [11/26/2016] [facility] 9Result Comment: [11/26/2016] [facility] 10Result Comment: [11/26/2016] [facility] 11Result Comment: [11/26/2016] [facility] 12Result Comment: [11/26/2016] [facility] 13Result Comment: [11/26/2016] [facility] 14Result Comment: [11/26/2016] [facility] 15Result Comment: [11/26/2016] [facility] 16Result Comment: [11/26/2016] [facility] 17Result Comment: [11/26/2016] [facility] 18Result Comment: [11/26/2016] [facility] 19Result Comment: [11/26/2016] [facility] 20Result Comment: [11/26/2016] [facility] 21Result Comment: [11/26/2016] [facility] 22Result Comment: [11/26/2016] [facility] 23Result Comment: [11/26/2016] [facility] 24Result Comment: [11/26/2016] [facility] 25Result Comment: [11/26/2016] [facility] 26Result Comment: [11/26/2016] [facility] 27Result Comment: [11/26/2016] [facility] 28Result Comment: [11/26/2016] [facility] 29Result Comment: [11/26/2016] [facility] 30Result Comment: [11/26/2016] [facility] 31Result Comment: [11/26/2016] [facility] 32Result Comment: [11/26/2016] [facility] 33Result Comment: [11/26/2016] [facility] 34Result Comment: [11/26/2016] [facility] 35Result Comment: [11/26/2016] [facility] Medications Flovent 110 mcg Inhaler HFA [...] Team Personnel Name: Margaux Vivas RN Position: [facility] RN Member Role: Primary Care Nurse Name: Live Leyva MD Position: [facility] Physician -Physician Practices Member Role: Lifetime Consulting Physician Name: Jeanmarie Lopez MD Position: [facility] Renal MD Member Role: Lifetime Consulting Physician Address: Address: [address] [place] [address], [address] [facility] [place], [place] [address] Name: Lashonda Clifford Position: [facility] Outreach Member Role: Lifetime Consulting Physician Name: Tiera Wadsworth RN Position: [facility] RN Member Role: Primary Care Nurse Name: Isaiah Angeles MD Position: [facility] Primary Care Physician Member Role: PCP Address: Address: [address] [place] [address]- Name: Annalise Lara RN Position: [facility] RN Member Role: Primary Care Nurse Name: Mark Wilkes MD Position: [facility] Renal MD Member Role: Lifetime Consulting Physician Address: Address: [address] [place] [address] [facility] [place] [address]- Name: Bibiana Treviño RN Position: S RN Member Role: Primary Care Nurse Care Team Related Persons Name: MIRA MILLER Address: [place] [address] [phone] Name: MIRA MILLER Address: [address] [phone] Name: MIRA MILLER Address: [address] [phone] Name: MIRA MILLER Address: [address] [phone] Name: MIRA MILLER Address: [address] [phone] Name: MIRA MILLER Address: [address] [phone] Name: MIRA MILLER Address: [address] [place] [phone] Name: PRATEEK MILLER Address: [address] [address] Name: BELEN MILLER Address: [address] [address] Name: BELEN MILLER Address: [address] [address]
--- OUTSIDE RECORDS SUMMARY | 2024-05-20 07:45 | XMS_ITS | Summary of Care ---
Author Organization [facility] Address [address] [place] [address]- Care Team Providers Care Picker Tender Name Role Phone KATJA RASMUSSEN Primary Care Physician Encounter [facility] [id number] Date(s): 11/02/20 - 11/02/[address] [address]- Discharge Disposition: Discharge Attending Physician: GOMEZ VALDEZ MD Referring Physician: GINNY PACHECO MD Allergies, Adverse Reactions, Alerts Substance Reaction Severity Status codeine Hives Active Augmentin Vomiting Active Tape Active Problem List Condition Effective Dates Status Health Status Inform ant Abdominal pain(Confirmed) Active
--- OUTSIDE RECORDS SUMMARY | 2024-05-20 07:45 | XMS_ITS | Summary of Care ---
Author Organization [facility] Address [address] [place] [address]- Care Team Providers Care Inbound Customer Service Representative Name Role Phone KATJA RASMUSSEN Primary Care Physician Encounter [facility] [id number] Date(s): 03/07/23 - 03/07/[address] [address]- Discharge Disposition: Discharge Attending Physician: GOMEZ VALDEZ MD Referring Physician: KATJA RASMUSSEN Allergies, Adverse Reactions, Alerts Substance Reaction Severity Status codeine Hives Active Augmentin Vomiting Active Tape Active Lactose Active Problem List Condition Confirmation Course Effective Dates Status Health St atus Informant Abdominal pain Confirmed Active Patient Care team information Personnel Name: KATJA RASMUSSEN Address: Address: [address] [place] [address]-
--- OUTSIDE RECORDS SUMMARY | 2024-05-20 07:45 | XMS_ITS | Continuity of Care Document ---
Author Organization [facility] [place] Address [address] [place] [address]- Care Team Providers Care P[place] Name Role Phone Karthik HENLEY, Isaiah Douglas Primary Care Physician [phone] Encounter [facility] Date(s): 11/13/21 - 12/13/21 [facility] [address] [place] [address]- Allergies, Adverse Reactions, Alerts Substance Reaction Severity [...] Given Parent Or Guardian Refuses 1Result Comment: [facility]-[id number] 2Location History: [facility] [place] 3Result Comment: [11/26/2016] [facility] 4Result Comment: [11/26/2016] [facility] 5Result Comment: [11/26/2016] [facility] 6Result Comment: [11/26/2016] [facility] 7Result Comment: [11/26/2016] [facility] 8Result Comment: [11/26/2016] [facility] 9Result Comment: [11/26/2016] [facility] 10Result Comment: [11/26/2016] [facility] 11Result Comment: [11/26/2016] [facility] 12Result Comment: [11/26/2016] [facility] 13Result Comment: [11/26/2016] [facility] 14Result Comment: [11/26/2016] [facility] 15Result Comment: [11/26/2016] [facility] 16Result Comment: [11/26/2016] [facility] 17Result Comment: [11/26/2016] [facility] 18Result Comment: [11/26/2016] [facility] 19Result Comment: [11/26/2016] [facility] 20Result Comment: [11/26/2016] [facility] 21Result Comment: [11/26/2016] [facility] 22Result Comment: [11/26/2016] [facility] 23Result Comment: [11/26/2016] [facility] 24Result Comment: [11/26/2016] [facility] 25Result Comment: [11/26/2016] [facility] 26Result Comment: [11/26/2016] [facility] 27Result Comment: [11/26/2016] [facility] 28Result Comment: [11/26/2016] [facility] 29Result Comment: [11/26/2016] [facility] 30Result Comment: [11/26/2016] [facility] 31Result Comment: [11/26/2016] [facility] 32Result Comment: [11/26/2016] [facility] 33Result Comment: [11/26/2016] [facility] Medications calcium (as carbonate) 500 mg [...]
--- OUTSIDE RECORDS SUMMARY | 2024-05-20 07:45 | XMS_ITS | Summary of Care ---
Author Organization [facility] Address [address] [place], [place] [address]- Care Team Providers Care User Interface Engineer Name Role Phone KATJA RASMUSSEN Primary Care Physician Encounter [facility] [id number] Date(s): 08/29/20 - 08/29/20 [facility] [address] [place] [address]- [facility] Discharge Disposition: Discharge Attending Physician: MONIE CHURCHILL MD Referring Physician: KATJA RASMUSSEN Allergies, Adverse Reactions, Alerts Substance Reaction Severity Status codeine Hives Active Augmentin Vomiting Active Tape Active Problem List Condition Effective Dates Status Health Status Inform ant Abdominal pain(Confirmed) Active
--- OUTSIDE RECORDS SUMMARY | 2024-05-20 07:45 | XMS_ITS | Summary of Care ---
Author Organization [facility] Address [address] [place] [address]- Care Team Providers Care Ground Support Agent Name Role Phone KATJA RASMUSSEN Primary Care Physician Encounter [facility] [id number] Date(s): 11/03/20 - 11/03/[address] [address]- Discharge Disposition: Home Attending Physician: GOMEZ VALDEZ MD Admitting Physician: GOMEZ VALDEZ MD Referring Physician: KATJA RASMUSSEN Allergies, Adverse Reactions, Alerts Substance Reaction Severity Status codeine Hives Active Augmentin Vomiting Active Tape Active Medications lisinopril 10 mg oral tablet Dose: 10 mg, Dose Amount: 1 tab, PO, daily, Entered: 10/26/20 13:06:00 EST Start Date: 10/26/20 Status: Ordered Vimpat 50 mg oral tablet Dose: 50 mg, Dose Amount: 1 tab, PO, BID, Entered: 10/26/20 13:07:00 EST Start Date: 10/26/20 Status: Ordered Problem List Condition Effective Dates Status Health Status Inform ant Abdominal pain(Confirmed) Active
--- OUTSIDE RECORDS SUMMARY | 2024-05-20 07:45 | XMS_ITS | Continuity of Care Document ---
Author Organization [facility] Address [address] [place] [address]- Care Team Providers Care Extension Professor Name Role Phone Karthik HENLEY, Isaiah Douglas Primary Care Physician Encounter [facility] Date(s): 09/18/21 - 10/18/21 [facility] [address] [place] [address]- [place] Allergies, Adverse Reactions, Alerts Substance Reaction [...] Guardian Refuses 1Result Comment: [facility]-[id number] 2Location History: [facility] [place] 3Result Comment: [11/26/2016] [facility] 4Result Comment: [11/26/2016] [facility] 5Result Comment: [11/26/2016] [facility] 6Result Comment: [11/26/2016] [facility] 7Result Comment: [11/26/2016] [facility] 8Result Comment: [11/26/2016] [facility] 9Result Comment: [11/26/2016] [facility] 10Result Comment: [11/26/2016] [facility] 11Result Comment: [11/26/2016] [facility] 12Result Comment: [11/26/2016] [facility] 13Result Comment: [11/26/2016] [facility] 14Result Comment: [11/26/2016] [facility] 15Result Comment: [11/26/2016] [facility] 16Result Comment: [11/26/2016] [facility] 17Result Comment: [11/26/2016] [facility] 18Result Comment: [11/26/2016] [facility] 19Result Comment: [11/26/2016] [facility] 20Result Comment: [11/26/2016] [facility] 21Result Comment: [11/26/2016] [facility] 22Result Comment: [11/26/2016] [facility] 23Result Comment: [11/26/2016] [facility] 24Result Comment: [11/26/2016] [facility] 25Result Comment: [11/26/2016] [facility] 26Result Comment: [11/26/2016] [facility] 27Result Comment: [11/26/2016] [facility] 28Result Comment: [11/26/2016] [facility] 29Result Comment: [11/26/2016] [facility] 30Result Comment: [11/26/2016] [facility] 31Result Comment: [11/26/2016] [facility] 32Result Comment: [11/26/2016] [facility] 33Result Comment: [11/26/2016] [facility]ations lidocaine 4% topical film 1 [...]
--- OUTSIDE RECORDS SUMMARY | 2024-05-20 07:45 | XMS_ITS | Summary of Care ---
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
--- OUTSIDE RECORDS SUMMARY | 2024-05-20 07:45 | XMS_ITS | Continuity of Care Document ---
Author Organization [facility] Address [address] [place] [address]- Care Team Providers Care Maintenance Supervisor Electrical Name Role Phone Karthik HENLEY, Isaiah Douglas Primary Care Physician [phone] Encounter [facility] Date(s): 08/28/21 - 09/27/21 [facility] [address] [place] [address]- Allergies, Adverse Reactions, Alerts Substance Reaction Severity [...] 14 02/16/97 Recorded Poliovirus Vaccine, Inactivated 15 9/7/01 Record ed Poliovirus Vaccine, Inactivated 16 04/25/01 [...] Or Guardian Refuses 1Result Comment: [facility]-[id number] 2Location History: [facility] [place] 3Result Comment: [11/26/2016] [facility] 4Result Comment: [11/26/2016] [facility] 5Result Comment: [11/26/2016] [facility] 6Result Comment: [11/26/2016] [facility] 7Result Comment: [11/26/2016] [facility] 8Result Comment: [11/26/2016] [facility] 9Result Comment: [11/26/2016] [facility] 10Result Comment: [11/26/2016] [facility] 11Result Comment: [11/26/2016] [facility] 12Result Comment: [11/26/2016] [facility] 13Result Comment: [11/26/2016] [facility] 14Result Comment: [11/26/2016] [facility] 15Result Comment: [11/26/2016] [facility] 16Result Comment: [11/26/2016] [facility] 17Result Comment: [11/26/2016] [facility] 18Result Comment: [11/26/2016] [facility] 19Result Comment: [11/26/2016] [facility] 20Result Comment: [11/26/2016] [facility] 21Result Comment: [11/26/2016] [facility] 22Result Comment: [11/26/2016] [facility] 23Result Comment: [11/26/2016] [facility] 24Result Comment: [11/26/2016] [facility] 25Result Comment: [11/26/2016] [facility] 26Result Comment: [11/26/2016] [facility] 27Result Comment: [11/26/2016] [facility] 28Result Comment: [11/26/2016] [facility] 29Result Comment: [11/26/2016] [facility] 30Result Comment: [11/26/2016] [facility] 31Result Comment: [11/26/2016] [facility] 32Result Comment: [11/26/2016] [facility] 33Result Comment: [11/26/2016] [facility] Medications lidocaine 4% topical film 1 [...]
--- OUTSIDE RECORDS SUMMARY | 2024-05-20 07:45 | XMS_ITS | Summary of Care ---
Author Organization [facility] Address [address] [place] [address]- Care Team Providers Care Mandate Retail Service Merchandiser Name Role Phone KATJA RASMUSSEN Primary Care Physician Encounter [facility] [id number] Date(s): 01/11/22 - 01/11/[address] [address]- Discharge Disposition: Home Attending Physician: GOMEZ VALDEZ MD Admitting Physician: GOMEZ VALDEZ MD Referring Physician: KATJA RASMUSSEN Allergies, Adverse Reactions, Alerts Substance Reaction Severity Status codeine Hives Active Augmentin Vomiting Active Lactose Active Tape Active Medications levothyroxine Dose: 188 mcg, PO, daily, Entered: 01/08/22 9:20:00 EDT Start Date: 01/08/22 Status: Ordered lisinopril Dose: 2.5 mg, PO, daily, Entered: 01/08/22 9:19:00 EDT Start Date: 01/08/22 Status: Ordered Nurtec ODT mg, PO, Every, Entered: 01/08/22 8:51:00 EDT Start Date: 01/08/22 Status: Ordered Problem List Condition Effective Dates Status Health Status Inform ant Abdominal pain(Confirmed) Active
--- NOTE | 2024-05-20 07:57 | HE.PHANOTE ---
Patient own dupixent 300mg/2ml ml Patient medication shipped to patient on 04/30/2024. Shipped refrigerated and then kept in fridge by patient mother until today 05/20/2024. Medication good outside of fridge for 14days. Medication admin was requested by Romi Vila ~ 05/12 and approved by director of clinical education. First dose is being given here because of injection reactions and patient monitoring for first dose. Natanael confirmed all storage requirements were met.
[2024-05-20] MEDS: DUPIXENT 300 MG/2 ML 1 EACH SUBCUT (08:23)
== END 2024-06-02 13:57 | disposition home or self-care (01) ==
LOC: HO.INF 07:25
PROVIDERS: Visit Provider Dentist Pediatric Dentistry
DX: K20.0 Eosinophilic esophagitis (principal)
CPT/HCPCS: 96372

== ENCOUNTER → 2024-09-25 10:20 | Outpatient (AMB) | payer OTHER, MEDICAID, SELFPAY | END | disposition home or self-care (01) | PROVIDERS: PCP Family Medicine; Visit Provider Internal Medicine Gastroenterology | CPT/HCPCS: 99213 ==

== ENCOUNTER → 2024-09-25 10:20 | Outpatient (BNVA) | payer OTHER, SELFPAY | PROVIDERS: PCP Family Medicine; Visit Provider Internal Medicine Gastroenterology ==

== ENCOUNTER 2025-05-18 07:15 | Day surgery (SDC) | payer OTHER, MEDICAID, SELFPAY ==
--- OUTSIDE RECORDS SUMMARY | 2025-04-28 15:20 | XMS_ITS | Encounter Summary ---
Author Organization [facility] Address [address] [place] [address] Phone Care Team Providers Care Director Instrumentation Name Role Phone Isaiah Angeles MD Primary Care Provider +1- [phone] Encounter Details Date Type Department Care Team (Late Contact Info) Description 02/12/2025 Orders Only [facility] [address] [place] [address] John Davila DO [address] [place] [address] History of nephrotic syndrome; Renal hypertension; Primary membranous nephropathy with nephrotic syndrome; Persistent proteinuria Social History Tobacco Use Types Packs/Day Years Used Date Smoking Tobacco: Never Smokeless Tobacco: Never Alcohol Use Standard Drinks/Week Comments No 0 (1 standard drink = 0.6 oz pur e alcohol) Comments No Sex and Gender Information Value Date Recorded Sex Assigned at Not on file Legal Sex Female 4:55 PM EST Gender Identity Not on file Sexual Orientation Not on file documented as of this encounter Plan of Treatment Upcoming Encounters Date Type Department Care Team (Late Contact Info) Description 07/28/2025 1:45 PM EST Office Visit [facility] [address] [place] [address] John Davila DO [address] [place] [address] documented as of this encounter Visit Diagnoses Diagnosis History of nephrotic syndrome Renal hypertension Primary membranous nephropathy with nephrotic syndrome Persistent proteinuria documented in this encounter Care Teams Director Instrumentation Relationship Specialty Start Date End Date Isaiah Angeles MD [address] [place] [id number] PCP - General 08/29/20 documented as of this encounter
--- OUTSIDE RECORDS SUMMARY | 2025-04-28 15:20 | XMS_ITS | Encounter Summary ---
Author Organization [facility] [place], Address [address] [place] [address] Phone Care Team Providers Care Heel Cover Softener Name Role Phone Isaiah Angeles MD Primary Care Provider +1- [phone] Encounter Details Date Type Department Care Team (Late Contact Info) Description 01/22/2025 Orders Only [facility] [address] [place] [address] John Davila DO [address] [place] [address] Primary membranous nephropathy with nephrotic syndrome; Nephrotic syndrome; Persistent proteinuria Social History Tobacco Use [...] Visit [facility] [address] [place] [address] John Davila DO [address] [place] [address] documented as of this encounter Visit Diagnoses Diagnosis Primary membranous nephropathy with nephrotic syndrome Nephrotic syndrome Persistent proteinuria documented in this encounter Care Teams Heel Cover Softener Relationship Specialty Start Date End Date Isaiah Angeles MD [facility] [address] [place] [address] PCP - General 08/29/20 documented as of this encounter
--- OUTSIDE RECORDS SUMMARY | 2025-04-28 15:20 | XMS_ITS | Encounter Summary ---
Author Organization [facility] Address [address] [place] [address] Phone Care Team Providers Care Sifter Operator Name Role Phone Isaiah Angeles MD Primary Care Provider +1- [phone] Encounter Details Date Type Department Care Team (Late Contact Info) Description 02/26/2025 Orders Only [facility] [address] [place] [address] John Davila DO [address] [facility] [place] [address] Primary membranous nephropathy with nephrotic syndrome; History of nephrotic syndrome; Essential hypertension; Persistent proteinuria Social History Tobacco Use Types [...] Visit [facility] [address] [place] [address] John Davila DO [address] [facility] [place] [address] documented as of this encounter Visit Diagnoses Diagnosis Primary membranous nephropathy with nephrotic syndrome History of nephrotic syndrome Essential hypertension Persistent proteinuria documented in this encounter Care Teams Sifter Operator Relationship Specialty Start Date End Date Isaiah Angeles MD [address] [place] [id number] PCP - General 08/29/20 documented as of this encounter
--- OUTSIDE RECORDS SUMMARY | 2025-04-28 15:20 | XMS_ITS | Encounter Summary ---
Author Organization [facility] [place], Address [address] [place] [address] Phone Care Team Providers Care Sales Secretary Name Role Phone Isaiah Angeles MD Primary Care Provider +1- [phone] Encounter Details Date Type Department Care Team (Late Contact Info) Description 09/04/2024 Orders Only [facility] [address] [place] [address] John Davila DO [address] [place] [address] Primary membranous nephropathy with nephrotic [...] Encounters Date Type Department Care Team (Late st Contact Info) Description 07/28/2025 1:45 PM EST Office Visit [facility] [address] [place] [address] John Davila DO [address] [place] [address] documented as of this encounter Visit Diagnoses Diagnosis Primary membranous nephropathy with nephrotic syndrome Nephrotic syndrome Persistent proteinuria documented in this encounter Care Teams Sales Secretary Relationship Specialty Start Date End Date Isaiah Angeles MD [facility] [address] [place] [address] PCP - General 08/29/20 documented as of this encounter
--- OUTSIDE RECORDS SUMMARY | 2025-04-28 15:20 | XMS_ITS | Encounter Summary ---
Author Organization [facility] [place], Address [address] [place] [address] Phone Care Team Providers Care Fabrication And Layout Craftsman Name Role Phone Isaiah Angeles MD Primary Care Provider +1- [phone] Encounter Details Date Type Department Care Team (Late Contact Info) Description 10/16/2024 Orders Only [facility] [address] [address] John Davila DO [address] [facility] [address] [place] [address] Primary membranous nephropathy with nephrotic syndrome; Nephrotic syndrome Social History Tobacco Use Types Packs/Day Years [...] Visit [facility] [address] [place] [address] John Davila DO [address] [facility] [address] [place] [address] documented as of this encounter Visit Diagnoses Diagnosis Primary membranous nephropathy with nephrotic syndrome Nephrotic syndrome documented in this encounter Care Teams Fabrication And Layout Craftsman Relationship Specialty Start Date End Date Isaiah Angeles MD [address] [facility] [place] [address] PCP - General 08/29/20 documented as of this encounter
--- OUTSIDE RECORDS SUMMARY | 2025-04-28 15:20 | XMS_ITS | Encounter Summary ---
Author Organization [facility] Address [address] [place] [address] Phone Care Team Providers Care Coal Chute Worker Name Role Phone Isaiah Angeles MD Primary Care Provider +1- [phone] Encounter Details Date Type Department Care Team (Late st Contact Info) Description 08/26/2024 Documentation Only [facility] [address] [place] [address] Taylor Russell Social History Tobacco Use Types Packs/Day Years [...] Visit [facility] [address] [place] [address] John Davila DO [address] [place] [address] [place] [address] documented as of this encounter Visit Diagnoses Not on filedocumented in this encounter Care Teams Coal Chute Worker Relationship Specialty Start Date End Date Isaiah Angeles MD [address] [place] [address] [place] [address] PCP - General 08/29/20 documented as of this encounter
--- OUTSIDE RECORDS SUMMARY | 2025-04-28 15:20 | XMS_ITS | Encounter Summary ---
Author Organization [facility] Address [address] [place] [address] Phone Care Team Providers Care Drafter Plumbing Name Role Phone Isaiah Angeles MD Primary Care Provider + Encounter Details Date Type Department Care Team (Late st Contact Info) Description 10/04/2023 Procedure Pass [facility], [address] [address] Social History Tobacco Use Types Packs/Day Years Used Date Smoking Tobacco: Never Smokeless Tobacco: Never Alcohol Use Standard Drinks/Week Comments Never 0 (1 standard drink = 0.6 oz pur e alcohol) Education Answer Date Recorded Are you interested in more education? Not on marty e 12/13/2022 Are you concerned about learning? Not on file 12/13/2022 No 12/13/2022 No 12/13/2022 Digital Access Answer Date Recorded No 01/12/2023 No 01/12/2023 Reliable internet access at home? Not on file 01/12/2023 Device with a working camera? Not on file Comments Unknown Sex and Gender Information Value Date Recorded Sex Assigned at Not on file Legal Sex Female 7:46 PM EST Gender Identity Not on file Sexual Orientation Not on file documented as of this encounter Plan of Treatment Upcoming Encounters Date Type Department Care Team (Late st Contact Info) Description 05/27/2025 3:50 PM EDT Office Visit [facility] [address] [place] [address] Cata Esquivel MD [address] [facility], [address] [place] [address] [email or web address] 06/17/2025 1:30 PM EDT Office Visit [facility] [address] [place] [address] Guicho Jose MD [address] [place] [address], [address] [place] [address] [email or web address] documented as of this encounter Visit Diagnoses Not on filedocumented in this encounter Care Teams Drafter Plumbing Relationship Specialty Start Date End Date Isaiah Angeles MD [address] [place] [address] PCP - General Family Medicine 12/17/18 documented as of this encounter Additional Source Comments The information contained in this document represents components of the legal health record. It is not the complete legal health record.[facility]
--- OUTSIDE RECORDS SUMMARY | 2025-04-28 15:20 | XMS_ITS | Encounter Summary ---
Author Organization [facility] [place], Address [address] [place] [address] Phone Care Team Providers Care Engine Repairer Service Name Role Phone Isaiah Angeles MD Primary Care Provider +1- [phone] Encounter Details Date Type Department Care Team (Late Contact Info) Description 01/05/2025 Documentation Only [facility] [place], [address] [place] [address] [place] [address] [place] [address] Social History Tobacco Use Types Packs/Day Years [...] Visit [facility] [address] [place] [address] John Davila, [address] [place] [address] documented as of this encounter Visit Diagnoses Not on filedocumented in this encounter Care Teams Engine Repairer Service Relationship Specialty Start Date End Date Isaiah Angeles MD [address] [place] [address] PCP - General 08/29/20 documented as of this encounter
--- OUTSIDE RECORDS SUMMARY | 2025-04-28 15:20 | XMS_ITS | Encounter Summary ---
Author Organization [facility] [place], Address [address] [place] [address] Phone Care Team Providers Care Dough Mixer Name Role Phone Isaiah Angeles MD Primary Care Provider +1- [phone] Encounter Details Date Type Department Care Team (Late Contact Info) Description 10/30/2024 Orders Only [facility] [address] [place] [address] John Davila DO [address] [facility] [place] [address] Primary membranous nephropathy with nephrotic [...] Visit [facility] [address] [place] [address] John Davila DO [address] [facility] [place] [address] documented as of this encounter Visit Diagnoses Diagnosis Primary membranous nephropathy with nephrotic syndrome Nephrotic syndrome Persistent proteinuria documented in this encounter Care Teams Dough Mixer Relationship Specialty Start Date End Date Isaiah Angeles MD [facility] [address] [place] [address] PCP - General 08/29/20 documented as of this encounter
--- OUTSIDE RECORDS SUMMARY | 2025-04-28 15:20 | XMS_ITS | Encounter Summary ---
Author Organization [facility] [place], Address [address] [place] [address] Phone Care Team Providers Care Electronics Scale Tester Name Role Phone Isaiah Angeles MD Primary Care Provider +1- [phone] Encounter Details Date Type Department Care Team (Late Contact Info) Description 01/01/2025 Documentation Only [facility] [place], [address] [place] [address] [place], [place] [address] [place] [address] Social History Tobacco Use Types [...] Visit [facility] [address] [place] [address] John Davila, [address] [facility] [place] [address] documented as of this encounter Visit Diagnoses Not on filedocumented in this encounter Care Teams Electronics Scale Tester Relationship Specialty Start Date End Date Isaiah Angeles MD [address] [place] [address] PCP - General 08/29/20 documented as of this encounter
--- OUTSIDE RECORDS SUMMARY | 2025-04-28 15:20 | XMS_ITS | Encounter Summary ---
Author Organization [facility] [place], Address [address] [place] [address] Phone Care Team Providers Care Barrel Assembler Helper Name Role Phone Isaiah Angeles MD Primary Care Provider +1- [phone] Encounter Details Date Type Department Care Team (Late Contact Info) Description 02/19/2025 Orders Only [facility] [address] [place] [address] John Davila DO [address] [facility] [place] [address] Primary membranous nephropathy with nephrotic [...] Visit [facility] [address] [place] [address] John Davila DO [address] [facility] [place] [address] documented as of this encounter Visit Diagnoses Diagnosis Primary membranous nephropathy with nephrotic syndrome Nephrotic syndrome Persistent proteinuria documented in this encounter Care Teams Barrel Assembler Helper Relationship Specialty Start Date End Date Isaiah Angeles MD [facility] [address] [place] [address] PCP - General 08/29/20 documented as of this encounter
--- OUTSIDE RECORDS SUMMARY | 2025-04-28 15:20 | XMS_ITS | Encounter Summary ---
Author Organization [facility] Address [address] [place] [phone] Phone Care Team Providers Care Sexual Assault Counsellor Name Role Phone Isaiah Angeles MD Primary Care Provider + Reason for Visit * Reason Comments Medication Refill Encounter Details Date Type Department Care Team (Late st Contact Info) Description 02/15/2025 Refill [facility] [address] [place] [address] Guicho Jose MD [address] [facility], 2nd [place] [address] [email or web address] Medication Refill Social History Tobacco Use Types Packs/Day Years [...] on file documented as of this encounter Progress Notes * Kate Casillas MA - 02/15/2025 8:10 AM EDT Pharmacy is requesting a refill on Nurtec. Patient was switched to Qulipta and no longer takes Nurtec. documented in this encounter Plan of Treatment Upcoming Encounters Date Type Department Care Team (Late st Contact Info) Description 05/27/2025 3:50 PM EDT Office Visit [facility] [address] [place] [address] Cata Esquivel MD [address] [place] [address], [address] [place] [address] 06/17/2025 1:30 PM EDT Office Visit [facility] [address] [place] [address] Guicho Jose MD [address] [place] [address], 2[address] [place] [address] documented as of this encounter Visit Diagnoses Diagnosis Migraine without aura and with status migrainosus, not intractable documented in this encounter Care Teams Sexual Assault Counsellor Relationship Specialty Start Date End Date Isaiah Angeles MD [address] [place] [address] PCP - General Family Medicine 12/17/18 documented as of this encounter Additional Source Comments The information contained in this document represents components of the legal health record. It is not the complete legal health record.[facility]
--- OUTSIDE RECORDS SUMMARY | 2025-04-28 15:20 | XMS_ITS | Encounter Summary ---
Author Organization [facility] [place], Address [address] [place] [address] Phone Care Team Providers Care French Binder Name Role Phone Isaiah Angeles MD Primary Care Provider +1- [phone] Encounter Details Date Type Department Care Team (Late Contact Info) Description 08/07/2024 Orders Only [facility] [address] [place] [address] John Davila DO [address] [facility] [place] [address] Primary membranous nephropathy with nephrotic [...] Visit [facility] [address] [place] [address] John Davila DO [address] [facility] [place] [address] documented as of this encounter Visit Diagnoses Diagnosis Primary membranous nephropathy with nephrotic syndrome Nephrotic syndrome Persistent proteinuria documented in this encounter Care Teams French Binder Relationship Specialty Start Date End Date Isaiah Angeles MD [facility] [address] [place] [address] PCP - General 08/29/20 documented as of this encounter
--- OUTSIDE RECORDS SUMMARY | 2025-04-28 15:20 | XMS_ITS | Encounter Summary ---
Author Organization [facility] [place], Address [address] [place] [address] Phone Care Team Providers Care Functional Mental Disability Teacher Name Role Phone Isaiah Angeles MD Primary Care Provider +1- [phone] Encounter Details Date Type Department Care Team (Late Contact Info) Description 11/27/2024 Orders Only [facility] [address] [place] [address] John Davila DO [address] [facility] [place] [address] Primary membranous nephropathy with nephrotic [...] Visit [facility] [address] [place] [address] John Davila DO [address] [facility] [place] [address] documented as of this encounter Visit Diagnoses Diagnosis Primary membranous nephropathy with nephrotic syndrome Nephrotic syndrome Persistent proteinuria documented in this encounter Care Teams Functional Mental Disability Teacher Relationship Specialty Start Date End Date Isaiah Angeles MD [facility] [address] [place] [address] PCP - General 08/29/20 documented as of this encounter
--- OUTSIDE RECORDS SUMMARY | 2025-04-28 15:20 | XMS_ITS | Encounter Summary ---
Author Organization [facility] Address [address] [place] [address] Phone Care Team Providers Care Warehouse Distribution Associate Name Role Phone Isaiah Angeles MD Primary Care Provider +1- [phone] Encounter Details Date Type Department Care Team (Late Contact Info) Description 11/06/2024 Orders Only [facility] [address] [place] [address] John Davila DO [address] [place] [address] Primary membranous nephropathy with nephrotic [...] [facility] [address] [place] [address] John Davila DO [address] [place] [address] documented as of this encounter Visit Diagnoses Diagnosis Primary membranous nephropathy with nephrotic syndrome History of nephrotic syndrome Essential hypertension Persistent proteinuria documented in this encounter Care Teams Warehouse Distribution Associate Relationship Specialty Start Date End Date Isaiah Angeles MD [address] [place] [id number] PCP - General 08/29/20 documented as of this encounter
--- OUTSIDE RECORDS SUMMARY | 2025-04-28 15:20 | XMS_ITS | Encounter Summary ---
Author Organization [facility] [place], Address [address] [place] [address] Phone Care Team Providers Care Lifeline Representatives Name Role Phone Isaiah Angeles MD Primary Care Provider +1- [phone] Encounter Details Date Type Department Care Team (Late Contact Info) Description 02/12/2025 Documentation Only [facility] [place], [address] [place] [address] [place], [place] [address] [place] [address] Social History Tobacco Use Types [...] Visit [facility] [address] [place] [address] John Davila, [address] [place] [address] documented as of this encounter Visit Diagnoses Not on filedocumented in this encounter Care Teams Lifeline Representatives Relationship Specialty Start Date End Date Isaiah Angeles MD [address] [place] [address] PCP - General 08/29/20 documented as of this encounter
--- OUTSIDE RECORDS SUMMARY | 2025-04-28 15:20 | XMS_ITS | Encounter Summary ---
Author Organization [facility] Address [address] [place] [address] Phone Care Team Providers Care 2Nd Grade Teacher Name Role Phone Isaiah Angeles MD Primary Care Provider +1- [phone] Encounter Details Date Type Department Care Team (Late Contact Info) Description 04/09/2025 Orders Only [facility] [address] [place] [address] John Davila DO [address] [place] [address] History of nephrotic syndrome; Renal [...] Visit [facility] [address] [place] [address] John Davila DO [address] [place] [address] documented as of this encounter Procedures Procedure Name Priority Date/Time Associated Diagnosis Comments TACROLIMUS, HIGHLY SENSITIVE, LC/MS/MS Routine 04/27/2025 9:00 AM EDT History of nephrotic syndrome Renal hypertension Primary membranous nephropathy with nephrotic syndrome Persistent proteinuria MICROSCOPIC EXAMINATION - DO NOT USE Routine 04/27/2025 9:00 AM EDT URINE ALBUMIN / CREATININE RATIO Routine 04/27/2025 9:00 AM EDT History of nephrotic syndrome Renal hypertension Primary membranous nephropathy with nephrotic syndrome Persistent proteinuria URINALYSIS WITH MICROSCOPIC Routine 04/27/2025 9:00 AM EDT History of nephrotic syndrome Renal hypertension Primary membranous nephropathy with nephrotic syndrome Persistent proteinuria CBC Routine 04/27/2025 9:00 AM EDT History of nephrotic syndrome Renal hypertension Primary membranous nephropathy with nephrotic syndrome Persistent proteinuria COMPREHENSIVE METABOLIC PANEL Routine 04/27/2025 9:00 AM EDT History of nephrotic syndrome Renal hypertension Primary membranous nephropathy with nephrotic syndrome Persistent proteinuria documented in this encounter Results * (ABNORMAL) Microscopic Examination (04/27/2025 9:00 AM EDT) WBC, Urine 11-30(A) 0 - 5 /hpf [facility] RBC, Urine 0-2 0 - 2 /hpf [facility] Squamous Epithelial, Urine >10(A) 0 - 10 /hpf [facility] Casts None seen None seen /lpf [facility] Bacteria, Urine Moderate(A ) None seen/Few [facility] 04/27/2025 9:00 AM EDT 04/27/2025 us John Davila DO LAB MICROBIOLOGY - GENERAL ORDE DEVIN Final Result [facility] [address] [place] [address] * (ABNORMAL) Tacrolimus, Highly Sensitive, LC/MS/MS (04/27/2025 9:00 AM EDT) [facility] Tacrolimus by Immunoassay 4.2(L) 5.0 - 20.0 ng/mL [facility] Comment: Detection Limit = 0.8 ng/mL Target steady state trough concentration for Tacrolimus varies based on type of organ transplant immunosuppressive protocol and other patient specific factors. Tacrolimus trough concentrations should be interpreted in conjunction with clinical assessments of rejection and tolerability. Values obtained with different assay methods cannot be used interchangeably due to differences in assay methods and cross-reactivty with metabolites, nor should correction factors be applied. Therefore, consistent use of one assay for individual patients is recommended. Tacrolimus assay performed by [employer]. 04/27/2025 9:0 0 AM EDT 04/27/2025 John Davila DO LAB BLOOD ORDERABLES Final [facility] lt [facility] [address] [place] [address] * (ABNORMAL) Urinalysis with microscopic (04/27/2025 9:00 AM EDT) [facility] Specific [place], Urine >=1.030(A) 1.005 - 1.030 [facility] pH Urine 5.5 5.0 - 7.5 [facility] Color, Urine Yellow Yellow [facility] Appearance Urine Clear Clear [facility] [phone] WBC Esterase Urine Negative Negative [facility] Protein, Ur 1+(A) Negative/Tra ce [facility] Glucose, Ur Negative Negative [facility] Ketones, Urine Negative Negative [facility] Blood Urine Negative Negative [facility] Bilirubin Urine Negative Negative [facility] Urobilinogen Urine 1.0 0.2 - 1.0 mg/dL [facility] [phone] Nitrite, Urine Negative Negative [facility] [phone] Microscopic Examination See below: [facility] [phone] Comment:Microscopic was bubba cated and was performed. Urine Urine specimen obtained by clean catch procedure / Unknown 04/27/2025 9:00 AM EDT 04/27/2025 John Davila LAB URINE ORDERABLES Final Resu lt Performing Organization Address City/[facility] Co de Phone Number [facility] [address] [place] [address] * Urine Albumin / Creatinine Ratio (04/27/2025 9:00 AM EDT) Creatinine, Ur 584.0 Not Estab. mg/dL [facility] Albumin, Urine 110.4 Not Estab. ug/mL [facility] Albumin/Creatin ine Ratio 19 0 - 29 mg/g creat [facility] Comment: Normal: 0 - 29 Moderately increased: 30 - 300 Severely increased: >300 Urine Urine specimen obtained by clean catch procedure / Unknown 04/27/2025 9:00 AM EDT 04/27/2025 John Meez LAB URINE ORDERABLES Final Resu lt [facility] [address] [place] [address] * (ABNORMAL) CBC (04/27/2025 9:00 AM EDT) WBC 5.3 3.4 - 10.8 x10E3/uL [facility] RBC 3.42(L) 3.77 - 5.28 x10E6/uL [facility] Hemoglobin 10.5(L) 11.1 - 15.9 g/dL [facility] Hematocrit 30.8(L) 34.0 - 46.6 % [facility] MCV 90 79 - 97 fL [facility] MCH 30.7 26.6 - 33.0 pg [facility] MCHC 34.1 31.5 - 35.7 g/dL [facility] RDW 12.3 11.7 - 15.4 % [facility] Platelets 300 150 - 450 x10E3/uL [facility] Blood Venous blood / Unknown 04/27/2025 9:00 AM EDT 04/27/2025 us John Davila DO LAB BLOOD ORDERABLES Final Resu lt [facility] [address] [place] [address] * (ABNORMAL) Comprehensive metabolic panel (04/27/2025 9:00 AM EDT) Glucose 93 70 - 99 mg/dL [facility] BUN 12 6 - 20 mg/dL [facility] Creatinine 1.39(H) 0.57 - 1.00 mg/dL [facility] eGFR CKD-EPI CR 2020 53(L) >59 mL/min/1.7 3 [facility] BUN/Creatinine Ratio 9 9 - 23 [facility] Sodium 135 134 - 144 mmol/L [facility] Potassium 4.5 3.5 - 5.2 mmol/L [facility] Chloride 99 96 - 106 mmol/L [facility] Bicarbonate (CO2) 22 20 - 29 mmol/L [facility] Calcium 9.3 8.7 - 10.2 mg/dL [facility] Total Protein 7.5 6.0 - 8.5 g/dL [facility] Albumin 4.7 4.0 - 5.0 g/dL [facility] Globulin 2.8 1.5 - 4.5 g/dL [facility] Total Bilirubin 0.9 0.0 - 1.2 mg/dL [facility] Alkaline Phosphatase 47 44 - 121 IU/L [facility] Comment: Effective May 03, 2025 Alkaline Phosphatase reference interval will be changing to: Age Male Female 0 - 5 days 47 - 127 47 - 127 6 - 10 days 29 - 242 29 - 242 11 - 20 days 109 - 357 109 - 357 21 - 30 days 94 - 494 94 - 494 1 - 2 months 149 - 539 149 - 539 3 - 6 months 131 - 452 131 - 452 7 - 11 months 117 - 401 117 - 401 12 months - 6 years 158 - 369 158 - 369 7 - 12 years 150 - 409 150 - 409 13 years 156 - 435 78 - 227 14 years 114 - 375 64 - 161 15 years 88 - 279 56 - 134 16 years 74 - 207 51 - 121 17 years 63 - 161 47 - 113 18 - 20 years 51 - 125 42 - 106 21 - 50 years 47 - 123 41 - 116 51 - 80 years 49 - 135 51 - 125 >80 years 48 - 129 48 - 129 AST (SGOT) 22 0 - 40 IU/L [facility] ALT (SGPT) 5 0 - 32 IU/L [facility] Blood Venous blood / Unknown 04/27/2025 9:00 AM EDT 04/27/2025 us John Davila DO LAB BLOOD ORDERABLES Final Resu lt [facility] [address] [place] [address] documented in this encounter Visit Diagnoses Diagnosis History of nephrotic syndrome Renal hypertension Primary membranous nephropathy with nephrotic syndrome Persistent proteinuria documented in this encounter Care Teams 2Nd Grade Teacher Relationship Specialty Start Date End Date Isaiah Angeles MD [address] [place] [address] PCP - General 08/29/20 documented as of this encounter
--- OUTSIDE RECORDS SUMMARY | 2025-04-28 15:20 | XMS_ITS | Encounter Summary ---
Author Organization [facility] [place], Address [address] [place] [address] Phone Care Team Providers Care All Round Logger Name Role Phone Isaiah Angeles MD Primary Care Provider +1- [phone] Encounter Details Date Type Department Care Team (Late Contact Info) Description 10/02/2024 Orders Only [facility] [address] [place] [address] John Davila DO [address] [place] [address] Primary membranous nephropathy with nephrotic [...] [facility] [address] [place] [address] John Davila DO [address] [place] [address] documented as of this encounter Procedures Procedure Name Priority Date/Time Associated Diagnosis Comments TACROLIMUS LEVEL Routine 10/14/2024 12:2 4 PM EST Primary membranous nephropathy with nephrotic syndrome Nephrotic syndrome Persistent proteinuria PROTEIN / CREATININE RATIO, URINE Routine 10/14/2024 12:24 PM EST Primary membranous nephropathy with nephrotic syndrome Nephrotic syndrome COMPREHENSIVE METABOLIC PANEL Routine 10/14/2024 12:24 PM EST Primary membranous nephropathy with nephrotic syndrome Nephrotic syndrome documented in this encounter Results * (ABNORMAL) Tacrolimus level (10/14/2024 12:24 PM EST) Tacrolimus Lvl 4.3(L) 5.0 - 20.0 ng/mL [email or web address] Comment: Target steady state trough concentration for Tacrolimus [...] one assay for individual patients is recommended. Detection Limit = 0.5 ng/mL Performed by LC-MS/MS technology Please note reference interval change Blood specimen (specimen) Venous blood / Unknown 10/14/2024 12:24 PM EST 10/14/2024 Narrative [facility] - 10/16/2024 8:06 PM EST Test(s) [id number] ([id number]), Blood was developed and its performance characteristics determined by [employer]. It has not been cleared or approved by the Food and Drug Administration. us John Davila DO LAB BLOOD ORDERABLES Final Resu lt [facility] [address] [place] [address] * (ABNORMAL) Urine Protein / creatinine ratio (10/14/2024 12:24 PM EST) Creatinine, Ur 156.9 Not Estab. mg/dL [facility] Protein, Ur 47.1 Not Estab. mg/dL [facility] Urine Protein/Creati nine Ratio 300(H) 0 - 200 mg/g creat [facility] Urine specimen (specimen) Urine specimen obtained by clean catch procedure / Unknown 10/14/2024 12:24 PM EST 10/14/2024 us John Davila DO LAB URINE ORDERABLES Final Resu lt [facility] [address] [place] [address] * (ABNORMAL) Comprehensive metabolic panel (10/14/2024 12:24 PM EST) Glucose 103(H) 70 - 99 mg/dL [facility] BUN 7 6 - 20 mg/dL [facility] Creatinine 0.75 0.57 - 1.00 mg/dL [facility] eGFR CKD-EPI CR 2020 111 >59 mL/min/1.7 3 [facility] BUN/Creatinine Ratio 9 9 - 23 [facility] Sodium 139 134 - 144 mmol/L [facility] Potassium 5.2 3.5 - 5.2 mmol/L [facility] Chloride 104 96 - 106 mmol/L [facility] Bicarbonate (CO2) 19(L) 20 - 29 mmol/L [facility] Calcium 9.7 8.7 - 10.2 mg/dL [facility] Total Protein 6.6 6.0 - 8.5 g/dL [facility] Albumin 4.1 4.0 - 5.0 g/dL [facility] Globulin 2.5 1.5 - 4.5 g/dL [facility] Total Bilirubin 0.8 0.0 - 1.2 mg/dL [facility] Alkaline Phosphatase 65 44 - 121 IU/L [facility] AST (SGOT) 23 0 - 40 IU/L [facility] ALT (SGPT) 17 0 - 32 IU/L [facility] Blood specimen (specimen) Venous blood / Unknown 10/14/2024 12:24 PM EST 10/14/2024 us John Davila DO LAB BLOOD ORDERABLES [facility] [address] [place] [address] documented in this encounter Visit Diagnoses Diagnosis Primary membranous nephropathy with nephrotic syndrome Nephrotic syndrome Persistent proteinuria documented in this encounter Care Teams All Round Logger Relationship Specialty Start Date End Date Isaiah Angeles MD [facility] [address] [place] [address] PCP - General 08/29/20 documented as of this encounter
--- OUTSIDE RECORDS SUMMARY | 2025-04-28 15:20 | XMS_ITS | Encounter Summary ---
Author Organization [facility] [place], Address [address] [place] [address] Phone Care Team Providers Care End Finder Forming Department Name Role Phone Isaiah Angeles MD Primary Care Provider +1- [phone] Encounter Details Date Type Department Care Team (Late Contact Info) Description 01/04/2025 Documentation Only [facility] [place], [address] [address] [place], [place] [address] [place] [address] Social History Tobacco Use Types [...] [facility] [address] [address] John Davila, [address] [place] [address] documented as of this encounter Visit Diagnoses Not on filedocumented in this encounter Care Teams End Finder Forming Department Relationship Specialty Start Date End Date Isaiah Angeles MD [address] [place] [address] PCP - General 08/29/20 documented as of this encounter
--- OUTSIDE RECORDS SUMMARY | 2025-04-28 15:20 | XMS_ITS | Encounter Summary ---
Author Organization [facility] Address [address] [place] [address] Phone Care Team Providers Care Can Bander Operator Name Role Phone Isaiah Angeles MD Primary Care Provider +1- [phone] Encounter Details Date Type Department Care Team (Late Contact Info) Description 01/01/2025 Orders Only [facility] [address] [place] [address] John Davila DO [address] [place] [address] Primary membranous nephropathy with nephrotic [...] Visit [facility] [address] [place] [address] John Davila DO [address] [place] [address] documented as of this encounter Visit Diagnoses Diagnosis Primary membranous nephropathy with nephrotic syndrome History of nephrotic syndrome Essential hypertension Persistent proteinuria documented in this encounter Care Teams Can Bander Operator Relationship Specialty Start Date End Date Isaiah Angeles MD [address] [place] [id number] PCP - General 08/29/20 documented as of this encounter
--- OUTSIDE RECORDS SUMMARY | 2025-04-28 15:20 | XMS_ITS | Encounter Summary ---
Author Organization [facility] Address [address] [place] [address] Phone Care Team Providers Care Shoe Turner Name Role Phone Isaiah Angeles MD Primary Care Provider +1- [phone] Encounter Details Date Type Department Care Team (Late Contact Info) Description 03/12/2025 Orders Only [facility] [address] [place] [address] John Davila DO [address] [place] [address] History of nephrotic syndrome; Renal [...] Visit [facility] [address] [place] [address] John Davila DO [address] [place] [address] documented as of this encounter Visit Diagnoses Diagnosis History of nephrotic syndrome Renal hypertension Primary membranous nephropathy with nephrotic syndrome Persistent proteinuria documented in this encounter Care Teams Shoe Turner Relationship Specialty Start Date End Date Isaiah Angeles MD [address] [place] [id number] PCP - General 08/29/20 documented as of this encounter
--- OUTSIDE RECORDS SUMMARY | 2025-04-28 15:20 | XMS_ITS | Encounter Summary ---
Author Organization [facility] Address [address] [place] [address] Phone Care Team Providers Care Electric Motor Repairman Name Role Phone Isaiah Angeles MD Primary Care Provider + Encounter Details Date Type Department Care Team (Late st Contact Info) Description 11/03/2020 Ancillary Orders [facility] Cardiovascular [address] [place] [address] Ryan Haywood MD, PhD [address] [place] [address] [email or web address] Pain in joint, multiple sites Social History Tobacco Use Types Packs/Day Years Used Date Smoking Tobacco: Never Smokeless Tobacco: Never Alcohol Use Standard Drinks/Week Comments Never 0 (1 standard drink = 0.6 oz pur e alcohol) Comments Unknown Sex and Gender Information Value Date Recorded Sex Assigned at Not on file Legal Sex Female 7:46 PM EST Gender Identity Not on file Sexual Orientation Not on file documented as of this encounter Plan of Treatment Upcoming Encounters Date Type Department Care Team (Late Contact Info) Description 05/27/2025 3:50 PM EDT Office Visit [facility] [address] [place], [place] [id number] Cata Esquivel MD [address], [address] [place] [address] 06/17/2025 1:30 PM EDT Office Visit [facility] [address] [place] [address] Guicho Jose MD [address] [place] [address] [email or web address] documented as of this encounter Results * XR HAND 3 OR MORE VIEWS (LEFT) (11/03/2020 1:13 PM EDT) Anatomical Region Laterality Modality Hand Left Radiographic Rosalva ging 11/03/2020 4:34 PM EDT Impressions 11/03/2020 4:36 PM EDT No radiographic stigmata of arthritis of the hands. Narrative 11/03/2020 4:36 PM EDT Reason for exam (per EHR order): * Hand pain, chronic, osteoarthritis suspected TECHNIQUE: PA, lateral, and oblique radiographs of the bilateral hands. COMPARISON: None. FINDINGS: Bilateral hands: Relative mild osteopenia. No acute fracture or dislocation. Alignment of the hand and wrist is maintained. Cartilage spaces are preserved. No erosion. No focal radiographic soft tissue swelling. Procedure Note Kaity Laureano MD - 11/03/2020 Reason for exam (per EHR order): * Hand pain, chronic, osteoarthritissuspected TECHNIQUE: PA, lateral, and oblique radiographs of the bilateral hands. COMPARISON: None. FINDINGS: Bilateral hands: Relative mild osteopenia. No acute fracture ordislocation. Alignment of the hand and wrist is maintained. Cartilagespaces are preserved. No erosion. No focal radiographic soft tissueswelling. IMPRESSION: No radiographic stigmata of arthritis of the hands. us Ryan Haywood MD, PhD IMG XR UPPER EXTREMITY Lyudmila l Result documented in this encounter Visit Diagnoses Diagnosis Pain in joint, multiple sites Pain in joint, multiple sites documented in this encounter Care Teams Electric Motor Repairman Relationship Specialty Start Date End Date Isaiah Angeles MD [address] [place] [id number] PCP - General Family Medicine 12/17/18 documented as of this encounter Additional Source Comments The information contained in this document represents components of the legal health record. It is not the complete legal health record.[facility]
--- OUTSIDE RECORDS SUMMARY | 2025-04-28 15:20 | XMS_ITS | Encounter Summary ---
Author Organization [facility], Address [address] [place] [address] Phone Care Team Providers Care Works Manager Name Role Phone Isaiah Angeles MD Primary Care Provider +1- [phone] Encounter Details Date Type Department Care Team (Late Contact Info) Description 04/16/2025 Orders Only [facility] [address] [place] [address] John Davila DO [address] [place] [address] Primary membranous nephropathy with nephrotic [...] Visit [facility] [address] [place] [address] John Davila DO [address] [facility] [address] [place] [address] documented as of this encounter Visit Diagnoses Diagnosis Primary membranous nephropathy with nephrotic syndrome Nephrotic syndrome Persistent proteinuria documented in this encounter Care Teams Works Manager Relationship Specialty Start Date End Date Isaiah Angeles MD [facility] [address] [place] [address] PCP - General 08/29/20 documented as of this encounter
--- OUTSIDE RECORDS SUMMARY | 2025-04-28 15:20 | XMS_ITS | Encounter Summary ---
Author Organization [facility] [place], Address [address] [place] [address] Phone Care Team Providers Care Assembly Manager Name Role Phone Isaiah Angeles MD Primary Care Provider +1- [phone] Encounter Details Date Type Department Care Team (Late Contact Info) Description 09/18/2024 Orders Only [facility] [address] [place] [address] John Davila DO [address] [place] [address] Primary membranous nephropathy with nephrotic [...] Visit [facility] [address] [address] John Davila DO [address] [place] [address] documented as of this encounter Procedures Procedure Name Priority Date/Time Associated Diagnosis Comments COMPREHENSIVE METABOLIC PANEL Routine 09/30/2024 11:53 AM EST Primary membranous nephropathy with nephrotic syndrome Nephrotic syndrome documented in this encounter Results * (ABNORMAL) Comprehensive metabolic panel (09/30/2024 11:53 AM EST) Glucose 98 70 - 99 mg/dL [facility] BUN 12 6 - 20 mg/dL [facility] Creatinine 0.66 0.57 - 1.00 mg/dL [facility] eGFR CKD-EPI CR 2020 122 >59 mL/min/1.7 3 [facility] BUN/Creatinine Ratio 18 9 - 23 [facility] Sodium 138 134 - 144 mmol/L [facility] Potassium 4.4 3.5 - 5.2 mmol/L [facility] Chloride 103 96 - 106 mmol/L [facility] Bicarbonate (CO2) 22 20 - 29 mmol/L [facility] Calcium 9.0 8.7 - 10.2 mg/dL [facility] Total Protein 6.2 6.0 - 8.5 g/dL [facility] Albumin 3.7(L) 4.0 - 5.0 g/dL [facility] Globulin 2.5 1.5 - 4.5 g/dL [facility] Total Bilirubin 0.4 0.0 - 1.2 mg/dL [facility] Alkaline Phosphatase 68 44 - 121 IU/L [facility] AST (SGOT) 15 0 - 40 IU/L [facility] ALT (SGPT) 17 0 - 32 IU/L [facility] Blood specimen (specimen) Venous blood / Unknown 09/30/2024 11:53 AM EST 09/30/2024 us John Davila DO LAB BLOOD ORDERABLES Final Resu lt [facility] [address] [place] [phone] documented in this encounter Visit Diagnoses Diagnosis Primary membranous nephropathy with nephrotic syndrome Nephrotic syndrome documented in this encounter Care Teams Assembly Manager Relationship Specialty Start Date End Date Isaiah Angeles MD [address] [place] [address] PCP - General 08/29/20 documented as of this encounter
--- OUTSIDE RECORDS SUMMARY | 2025-04-28 15:20 | XMS_ITS | Encounter Summary ---
Author Organization [facility] Address [address] [place] [address] Phone Care Team Providers Care Observation Assistant Name Role Phone Isaiah Angeles MD Primary Care Provider +1- [phone] Encounter Details Date Type Department Care Team (Late Contact Info) Description 12/07/2024 Telephone [facility] [address] [place] [address] Taylor Russell Social History Tobacco Use Types [...] on file documented as of this encounter Miscellaneous Notes * Telephone Encounter - Taylor Russell - 12/07/2024 9:39 AM EDT Hi Derrell Qureshi called questioning if think amlodipine could be causing Gretchen to pass out? She mentioned Basilio went through this a couple of years ago and after testing nothing was found so Dr Gilman switched medication and they think it helped. Please advise- thanks documented in this encounter Plan of Treatment Upcoming Encounters Date Type Department Care Team (Late Contact Info) Description 07/28/2025 1:45 PM EST Office Visit [facility] [address] [place] [address] John Davila, DO [address] [place] [address] documented as of this encounter Visit Diagnoses Not on filedocumented in this encounter Care Teams Observation Assistant Relationship Specialty Start Date End Date Isaiah Angeles MD [facility] [address] [address] PCP - General 08/29/20 documented as of this encounter
--- OUTSIDE RECORDS SUMMARY | 2025-04-28 15:20 | XMS_ITS | Encounter Summary ---
Author Organization [facility] [place], Address [address] [place] [address] Phone Care Team Providers Care Motion Picture Actor Name Role Phone Isaiah Angeles MD Primary Care Provider +1- [phone] Encounter Details Date Type Department Care Team (Late Contact Info) Description 11/13/2024 Orders Only [facility] [address] [place] [address] John Davila DO [address] [place] [address] Primary membranous nephropathy with nephrotic [...] Visit [facility] [address] [place] [address] John Davila DO [address] [place] [address] documented as of this encounter Visit Diagnoses Diagnosis Primary membranous nephropathy with nephrotic syndrome Nephrotic syndrome documented in this encounter Care Teams Motion Picture Actor Relationship Specialty Start Date End Date Isaiah Angeles MD [address] [facility] [place] [address] PCP - General 08/29/20 documented as of this encounter
--- OUTSIDE RECORDS SUMMARY | 2025-04-28 15:20 | XMS_ITS | Encounter Summary ---
Author Organization [facility] [place], Address [address] [place] [address] Phone Care Team Providers Care Kiln Transfer Operator Name Role Phone Isaiah Angeles MD Primary Care Provider +1- [phone] Encounter Details Date Type Department Care Team (Late Contact Info) Description 08/21/2024 Orders Only [facility] [address] [place] [address] John Davila DO [address] [place] [address] Primary membranous nephropathy with nephrotic [...] Visit [facility] [address] [place] [address] John Davila DO [address] [place] [address] documented as of this encounter Procedures Procedure Name Priority Date/Time Associated Diagnosis Comments PROTEIN / CREATININE RATIO, URINE Routine 08/25/2024 11:25 AM EST Primary membranous nephropathy with nephrotic syndrome Nephrotic syndrome COMPREHENSIVE METABOLIC PANEL Routine 08/25/2024 11:25 AM EST Primary membranous nephropathy with nephrotic syndrome Nephrotic syndrome documented in this encounter Results * (ABNORMAL) Urine Protein / creatinine ratio (08/25/2024 11:25 AM EST) Creatinine, Ur 465.4 Not Estab. mg/dL [facility] Protein, Ur 148.4 Not Estab. mg/dL [facility] Urine Protein/Creati nine Ratio 319(H) 0 - 200 mg/g creat [facility] Urine specimen (specimen) Urine specimen obtained by clean catch procedure / Unknown 08/25/2024 11:25 AM EST 08/25/2024 us John Davila DO LAB URINE ORDERABLES Final Resu lt [facility] [address] [place] [address] * (ABNORMAL) Comprehensive metabolic panel (08/25/2024 11:25 AM EST) Glucose 103(H) 70 - 99 mg/dL [facility] BUN 9 6 - 20 mg/dL [facility] Creatinine 0.84 0.57 - 1.00 mg/dL [facility] eGFR CKD-EPI CR 2020 97 >59 mL/min/1.7 3 [facility] BUN/Creatinine Ratio 11 9 - 23 [facility] Sodium 138 134 - 144 mmol/L [facility] Potassium 4.4 3.5 - 5.2 mmol/L [facility] Chloride 102 96 - 106 mmol/L [facility] Bicarbonate (CO2) 23 20 - 29 mmol/L [facility] Calcium 9.1 8.7 - 10.2 mg/dL [facility] Total Protein 6.0 6.0 - 8.5 g/dL [facility] Albumin 3.7(L) 4.0 - 5.0 g/dL [facility] Globulin 2.3 1.5 - 4.5 g/dL [facility] Total Bilirubin 0.9 0.0 - 1.2 mg/dL [facility] Alkaline Phosphatase 72 44 - 121 IU/L [facility] AST (SGOT) 18 0 - 40 IU/L [facility] ALT (SGPT) 10 0 - 32 IU/L [facility] Blood specimen (specimen) Venous blood / Unknown 08/25/2024 11:25 AM EST 08/25/2024 us John Davila DO LAB BLOOD ORDERABLES Final Resu lt [facility] [address] [place] [address] documented in this encounter Visit Diagnoses Diagnosis Primary membranous nephropathy with nephrotic syndrome Nephrotic syndrome documented in this encounter Care Teams Kiln Transfer Operator Relationship Specialty Start Date End Date Isaiah Angeles MD [address] [facility] [place] [address] PCP - General 08/29/20 documented as of this encounter
--- OUTSIDE RECORDS SUMMARY | 2025-04-28 15:20 | XMS_ITS | Encounter Summary ---
Author Organization [facility] [place], Address [address] [place] [address] Phone Care Team Providers Care Linotype Operator Name Role Phone Isaiah Angeles MD Primary Care Provider +1- [phone] Encounter Details Date Type Department Care Team (Late Contact Info) Description 09/11/2024 Orders Only [facility] [address] [place] [address] John Davila DO [address] [place] [address] Primary membranous nephropathy with nephrotic [...] Visit [facility] [address] [place] [address] John Davila DO [address] [place] [address] documented as of this encounter Procedures Procedure Name Priority Date/Time Associated Diagnosis Comments THYROID PEROXIDASE ANTIBODY Routine 09/30/2024 11:35 AM EST Primary membranous nephropathy with nephrotic syndrome History of nephrotic syndrome Essential hypertension Persistent proteinuria CBC Routine 09/30/2024 11:35 AM EST Primary membranous nephropathy with nephrotic syndrome History of nephrotic syndrome Essential hypertension Persistent proteinuria documented in this encounter Results * CBC (09/30/2024 11:35 AM EST) WBC 5.5 3.4 - 10.8 x10E3/uL [facility] RBC 4.22 3.77 - 5.28 x10E6/uL [facility] Hemoglobin 12.1 11.1 - 15.9 g/dL [facility] Hematocrit 36.4 34.0 - 46.6 % [facility] MCV 86 79 - 97 fL [facility] MCH 28.7 26.6 - 33.0 pg [facility] MCHC 33.2 31.5 - 35.7 g/dL [facility] RDW 11.8 11.7 - 15.4 % [facility] Platelets 270 150 - 450 x10E3/uL [facility] Blood specimen (specimen) Venous blood / Unknown 09/30/2024 11:35 AM EST 09/30/2024 us John Davila DO LAB BLOOD ORDERABLES Final Resu lt [facility] [address] [place] [address] * (ABNORMAL) Anti Thyroid Peroxidase Ab (09/30/2024 11:35 AM EST) Thyroid Peroxidase Antibodies 157(H) 0 - 34 IU/mL [facility] Blood specimen (specimen) Venous blood / Unknown 09/30/2024 11:35 AM EST 09/30/2024 us John Davila DO LAB BLOOD ORDERABLES Final Resu lt [facility] [address] [place] [phone] documented in this encounter Visit Diagnoses Diagnosis Primary membranous nephropathy with nephrotic syndrome History of nephrotic syndrome Essential hypertension Persistent proteinuria documented in this encounter Care Teams Linotype Operator Relationship Specialty Start Date End Date Isaiah Angeles MD [facility] [address] [place] [id number] PCP - General 08/29/20 documented as of this encounter
--- OUTSIDE RECORDS SUMMARY | 2025-04-28 15:20 | XMS_ITS | Encounter Summary ---
Author Organization [facility] [place], Address [address] [place] [address] Phone Care Team Providers Care Customs Patrol Officer Name Role Phone Isaiah Angeles MD Primary Care Provider +1- [phone] Encounter Details Date Type Department Care Team (Late Contact Info) Description 03/19/2025 Orders Only [facility] [address] [place] [address] John Davila DO [address] [place] [address] Primary membranous nephropathy with nephrotic [...] [facility] [address] [place] [address] John Davila DO [address] [place] [address] documented as of this encounter Visit Diagnoses Diagnosis Primary membranous nephropathy with nephrotic syndrome Nephrotic syndrome Persistent proteinuria documented in this encounter Care Teams Customs Patrol Officer Relationship Specialty Start Date End Date Isaiah Angeles MD [facility] [address] [place] [address] PCP - General 08/29/20 documented as of this encounter
--- OUTSIDE RECORDS SUMMARY | 2025-04-28 15:20 | XMS_ITS | Encounter Summary ---
Author Organization [facility] [place], Address [address] [place] [address] Phone Care Team Providers Care Credit Verification Clerk Name Role Phone Isaiah Angeles MD Primary Care Provider +1- [phone] Encounter Details Date Type Department Care Team (Late Contact Info) Description 03/05/2025 Documentation Only [facility] [place], [address] [place] [address] [place] [address] [place] [address] Social History Tobacco Use Types [...] Visit [facility] [address] [place] [address] John Davila, [address] [place] [address] documented as of this encounter Visit Diagnoses Not on filedocumented in this encounter Care Teams Credit Verification Clerk Relationship Specialty Start Date End Date Isaiah Angeles MD [address] [place] [address] PCP - General 08/29/20 documented as of this encounter
--- OUTSIDE RECORDS SUMMARY | 2025-04-28 15:20 | XMS_ITS | Encounter Summary ---
Author Organization [facility] Address [address] [place] [address] Phone Care Team Providers Care Hand Or Machine Paster Name Role Phone Isaiah Angeles MD Primary Care Provider +1- [phone] Encounter Details Date Type Department Care Team (Late Contact Info) Description 04/23/2025 Orders Only [facility] [address] [place] [address] John Davila DO [address] [place] [address] [...] [facility] [address] [place] [address] John Davila DO [address] [place] [address] documented as of this encounter Visit Diagnoses Diagnosis Primary membranous nephropathy with nephrotic syndrome History of nephrotic syndrome Essential hypertension Persistent proteinuria documented in this encounter Care Teams Hand Or Machine Paster Relationship Specialty Start Date End Date Isaiah Angeles MD [address] [place] [id number] PCP - General 08/29/20 documented as of this encounter
--- OUTSIDE RECORDS SUMMARY | 2025-04-28 15:20 | XMS_ITS | Encounter Summary ---
Author Organization [facility] [place], Address [address] [place] [address] Phone Care Team Providers Care Maintenance Department Manager Name Role Phone Isaiah Angeles MD Primary Care Provider +1- [phone] Encounter Details Date Type Department Care Team (Late Contact Info) Description 2025 Documentation Only [facility] [place], [address] [address] [place], [place] [address] [place] [address] Social History Tobacco Use Types [...] Visit [facility] [address] [place] [address] John Davila, [address] [place] [address] documented as of this encounter Visit Diagnoses Not on filedocumented in this encounter Care Teams Maintenance Department Manager Relationship Specialty Start Date End Date Isaiah Angeles MD [address] [place] [address] PCP - General 08/29/20 documented as of this encounter
--- OUTSIDE RECORDS SUMMARY | 2025-04-28 15:21 | XMS_ITS | Encounter Summary ---
Author Organization [facility] Address [address] [place] [address] Phone Care Team Providers Care Nurse Clinician Name Role Phone Marlene Head MD Primary Care Provider [phone] Encounter Details Date Type Department Care Team (Late st Contact Info) Description 08/30/2016 Orders Only [facility], [address] [place] [address] Social History Tobacco Use Types Packs/Day Years Used Date Smoking Tobacco: Never Comments:Never Smoker Comments Unknown Sex and Gender Information Value Date Recorded Sex Assigned at Not on file Legal Sex Female 4:31 PM EST Gender Identity Not on file Sexual Orientation Not on file documented as of this encounter Plan of Treatment Not on file documented as of this encounter Visit Diagnoses Not on filedocumented in this encounter Care Teams Nurse Clinician Relationship Specialty Start Date End Date Marlene Head MD [address] [place] [address] [address] [place] [address] PCP - General 10/08/16 documented as of this encounter
--- OUTSIDE RECORDS SUMMARY | 2025-04-28 15:21 | XMS_ITS | Encounter Summary ---
Author Organization [facility] Address [address] [place] [address] Phone Care Team Providers Care Pipe Finisher Name Role Phone Marlene Head MD Primary Care Provider [phone] Encounter Details Date Type Department Care Team (Late st Contact Info) Description 08/06/2015 Orders Only [facility], [address] [place] [address] Social History Tobacco Use Types Packs/Day Years [...] on filedocumented in this encounter Care Teams Pipe Finisher Relationship Specialty Start Date End Date Marlene Head MD [address] [place] [address] [address] [place] [address] PCP - General 10/08/16 documented as of this encounter
--- OUTSIDE RECORDS SUMMARY | 2025-04-28 15:21 | XMS_ITS | Encounter Summary ---
Author Organization [facility] Address [address] [place] [address] [address] [place] [address] Phone Care Team Providers Care Waste Machine Operator Name Role Phone Isaiah Angeles MD Primary Care Provider + Encounter Details Date Type Department Care Team (Latest Contact Info) Description 07/22/2019 Transcribe Orders [facility] [address] [facility] [place] [address] Oswaldo Steve MD Proteinuria, unspecified type (Primary Dx); Congenital nephrotic syndrome; Personal history of nephrotic syndrome Social History Tobacco Use Types Packs/Day [...] Office Visit [facility] [address] [place] [address] Cata Esquivel MD [address] [facility], [address] [place] [address] 06/17/2025 1:30 PM EDT Office Visit [facility] [address] [place] [address] Guicho Jose MD [address] [facility] 2nd [place] [address] [email or web address] documented as of this encounter Results * (ABNORMAL) TOTAL PROTEIN CREATININE RATIO, RANDOM URINE (07/22/2019 1:31 PM EST) URINE TOTAL PROTEIN 276.6 mg/dL [facility] URINE CREATININE 93 mg/dL [facility] URINE TP CRE RATIO 2.97(H) 0 - 0.19 [facility] Urine (Urine) 07/22/2019 1:3 1 PM EST 07/22/2019 3:46 PM EST Oswaldo Steve MD URINE ORDERABLES Final Resul t [facility] [address] [place] [address] * (ABNORMAL) URINALYSIS WITH SEDIMENT (07/22/2019 1:31 PM EST) WBC 0-4(A) NONE SEEN /hpf [facility] RBC 3-5(A) NONE SEEN /hpf [facility] URINE EPITHELIAL 21-49(A) NONE SEEN [facility] MUCUS Trace(A) NONE SEEN /hpf [facility] BACTERIA Trace(A) NONE SEEN /hpf [facility] COLOR Yellow Yellow [facility] CLARITY Clear [facility] GLUCOSE Negative Negative [facility] BILI Negative Negative [facility] KETONES Negative Negative [facility] SPECIFIC GRAVITY 1.015 1.005 - 1.030 [facility] BLOOD 1+(A) Negative [facility] PH 6.0 5.0 - 8.0 [facility] Protein-UA 3+(A) Negative [facility] NITRITE Positive(A) Negative [facility] Leukocyte esterase, ur Negative Negative [facility] Urine (Urine) 07/22/2019 1:3 1 PM EST 07/22/2019 3:46 PM EST Oswaldo Steve MD URINE ORDERABLES Final Resul t Performing Organization Address [facility]/ZIP Co de Phone Number [address] [address] * Urine culture (07/22/2019 1:31 PM EST) Special Requests None 07/22/2019 1:31 PM EST [facility] GRAM STAIN NO ORGANISMS SEEN 07/23/2019 9:07 AM [facility] Urine Culture <10,000 colony forming units per mL 07/24/2019 10:18 AM [facility] Urine (Urine) 07/22/2019 1:3 1 PM EST 07/22/2019 3:46 PM EST Oswaldo Steve MD MICROBIOLOGY - GENERAL ORDER TOMY Final Result Performing Organization Address City/[facility] Co de Phone Number [address] [address] documented in this encounter Visit Diagnoses Diagnosis Proteinuria, unspecified type- Primary Congenital nephrotic syndrome Nephrotic syndrome with unspecified pathological lesion in kidney Personal history of nephrotic syndrome documented in this encounter Care Teams Waste Machine Operator Relationship Specialty Start Date End Date Isaiah Angeles MD [address] [place] [id number] PCP - General Family Medicine 12/17/18 documented as of this encounter Additional Source Comments The information contained in this document represents components of the legal health record. It is not the complete legal health record.[facility]
--- OUTSIDE RECORDS SUMMARY | 2025-04-28 15:21 | XMS_ITS | Encounter Summary ---
Author Organization [facility] Address [address] [place] [address] Phone Care Team Providers Care Cullet Crusher Name Role Phone Isaiah Angeles MD Primary Care Provider [phone]- [phone] Encounter Details Date Type Department Care Team (Late Contact Info) Description 02/14/2021 Orders Only [facility] [address] [place] [address] Provider, MD Susan Social History Tobacco Use Types Packs/Day Years Used Date Smoking Tobacco: Never Alcohol Use Standard Drinks/Week Comments No 0 (1 standard drink = 0.6 oz pur e alcohol) Comments Unknown Sex and Gender Information Value Date Recorded Sex Assigned at Not on file Legal Sex Female 4:55 PM EST Gender Identity Not on file Sexual Orientation Not on file COVID-19 Exposure Response Date Recorded In the last month, have you been in contact with someone who was confirmed or suspected to have Coronavirus / COVID-19? No / Unsure 02/15/2021 10:56 AM EDT documented as of this encounter Plan of Treatment Upcoming Encounters Date Type Department Care Team (Late st Contact Info) Description 07/28/2025 1:45 PM EST Office Visit [facility] [address] [address] John Davila, DO [address] [facility] [place] [address] documented as of this encounter Procedures Procedure Name Priority Date/Time Associated Diagnosis Comments EXT RESULT ENTRY Routine 01/09/2021 documented in this encounter Results * EXT RESULT ENTRY (01/09/2021) us Historical Provider LAB BLOOD ORDERABLES Lyudmila l Result documented in this encounter Visit Diagnoses Not on filedocumented in this encounter Care Teams Cullet Crusher Relationship Specialty Start Date End Date Isaiah Angeles MD [address] [place] [address] PCP - General 08/29/20 documented as of this encounter
--- OUTSIDE RECORDS SUMMARY | 2025-04-28 15:21 | XMS_ITS | Encounter Summary ---
Author Organization [facility] Address [address] [place] [address] Phone Care Team Providers Care Core Java Engineer Name Role Phone Marlene Head MD Primary Care Provider [phone] Encounter Details Date Type Department Care Team (Late st Contact Info) Description 06/05/2016 Orders Only [facility], [address] [place] [address] Social History Tobacco Use Types Packs/Day Years [...] on filedocumented in this encounter Care Teams Core Java Engineer Relationship Specialty Start Date End Date Marlene Head MD [address] [place] [address] [address] [place] [address] PCP - General 10/08/16 documented as of this encounter
--- OUTSIDE RECORDS SUMMARY | 2025-04-28 15:21 | XMS_ITS | Encounter Summary ---
Author Organization 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 06/17/2025 1:30 PM EDT Office Visit [facility] [address] [place] [address] Guicho Jose MD [address] [place] [address], [address] [place] [address] documented as of this encounter Results * US Soft Tissues of Head and Neck (Salivary Gland) (03/22/2023 3:46 PM EDT) Anatomical Region Laterality Modality Neck, Head Ultrasound 03/24/2023 3:02 PM EDT Impressions 03/24/2023 3:08 PM EDT Indolent appearing lesion defined within the right parotid gland measuring 5.5 x 6.7 x 8.5 mm, similar to mass shown March 2018. Possible, not definite cyst. Narrative 03/24/2023 3:08 PM EDT US SOFT TISSUES OF HEAD AND NECK (SALIVARY GLAND) History/indication: Right parotid mass evaluation. TECHNIQUE: Ultrasound of the Salivary Gland. COMPARISON: No prior head and neck ultrasound available. Correlation made with MR imaging from 03/24/2018. FINDINGS: Targeted ultrasound was performed of the area of clinical concern, right parotid gland identifies and oval, smoothly marginated hypoechoic 5.5 x 6.7 x 8.5 mm mass with suggestion of low level internal echoes. Enhanced through transmission of sound. No visible flow on color flow imaging. Similar sized fluid bright focus noted on previous MR imaging. Procedure Note Carter Sosa MD - 03/24/2023 US SOFT TISSUES OF HEAD AND NECK (SALIVARY GLAND) History/indication: Right parotid mass evaluation. TECHNIQUE: Ultrasound of the Salivary Gland. COMPARISON: No prior head and neck ultrasound available. Correlation madewith MR imaging from 03/24/2018. FINDINGS: Targeted ultrasound was performed of the area of clinical concern, rightparotid gland identifies and oval, smoothly marginated hypoechoic 5.5 x6.7 x 8.5 mm mass with suggestion of low level internal echoes. Enhancedthrough transmission of sound. No visible flow on color flow imaging.Similar sized fluid bright focus noted on previous MR imaging. IMPRESSION: Indolent appearing lesion defined within the right parotid gland measuring5.5 x 6.7 x 8.5 mm, similar to mass shown March 2018. Possible, notdefinite cyst. 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 It is not the complete legal health record.[facility]
--- OUTSIDE RECORDS SUMMARY | 2025-04-28 15:21 | XMS_ITS | Encounter Summary ---
Author Organization [facility], Address [address] [place] [address] Phone Care Team Providers Care Farm Consultant Name Role Phone Isaiah Angeles MD Primary Care Provider [phone] Encounter Details Date Type Department Care Team (Late Contact Info) Description 05/29/2024 Documentation Only [facility], [address] [place] [address] John Davila DO [address] [place] [address] Social History Tobacco Use Types Packs/Day Years [...] Visit [facility], [address] [place] [place] [address] John Davila DO [address] [place] [address] documented as of this encounter Visit Diagnoses Not on filedocumented in this encounter Care Teams Farm Consultant Relationship Specialty Start Date End Date Isaiah Angeles MD [address] [place] [address] PCP - General 08/29/20 documented as of this encounter
--- OUTSIDE RECORDS SUMMARY | 2025-04-28 15:21 | XMS_ITS | Encounter Summary ---
Author Organization [facility] Address [address] [place] [address] Phone Care Team Providers Care Manager Of School Name Role Phone Isaiah Angeles MD Primary Care Provider [phone] Encounter Details Date Type Department Care Team (Late st Contact Info) Description 03/06/2022 Telephone [facility] [address] [place] [address] Ama Gilman MD Social History Tobacco Use Types Packs/Day Years [...] encounter Miscellaneous Notes * Telephone Encounter - Paula Jackson - 03/06/2022 3:55 PM EDT Patient mother called [phone] asking about Approval status on rituxan Per Lily approval can take up to 28 days. No status on approval yet. Patient mother is worried and wants to know what can be plan B on patient care? Pls advise? Also pls see message below? * Telephone Encounter - Lina Donovan - 03/06/2022 2:57 PM EDT pts mom jason called, she would like to speak with you about an infusion that needs to be scheduled. She is worried because her condition is not improving and she would like an update. Please call her back at [phone] Thank you documented in this encounter Plan of Treatment Upcoming Encounters Date Type Department Care Team (Late st Contact Info) Description 07/28/2025 1:45 PM EST Office Visit [facility], [address] [place] [address] John Davila, DO [address] [place] [address] documented as of this encounter Visit Diagnoses Not on filedocumented in this encounter Care Teams Manager Of School Relationship Specialty Start Date End Date Isaiah Angeles MD [address] [place] [address] PCP - General 08/29/20 documented as of this encounter
--- OUTSIDE RECORDS SUMMARY | 2025-04-28 15:21 | XMS_ITS | Encounter Summary ---
Author Organization [facility] Address [address] [place] [address] Phone Care Team Providers Care Guide Dog Instructor Name Role Phone Marlene Head MD Primary Care Provider [phone] Encounter Details Date Type Department Care Team (Late st Contact Info) Description 03/18/2013 Orders Only [facility], [address] [place] [address] Social History Tobacco Use Types Packs/Day Years [...] on filedocumented in this encounter Care Teams Guide Dog Instructor Relationship Specialty Start Date End Date Marlene Head MD [address] [place] [address] [address] [place] [address] PCP - General 10/08/16 documented as of this encounter
--- OUTSIDE RECORDS SUMMARY | 2025-04-28 15:21 | XMS_ITS | Encounter Summary ---
Author Organization [facility], Address [address] [place] [address] Phone Care Team Providers Care Spring Crater Name Role Phone Isaiah Angeles MD Primary Care Provider [phone] Encounter Details Date Type Department Care Team (Late Contact Info) Description 07/10/2024 Orders Only [facility] [address] [place] [address] John Davila DO [address] [facility] [place] [address] Primary membranous nephropathy with nephrotic [...] [facility] [address] [address] John Davila DO [address] [facility] [place] [address] documented as of this encounter Visit Diagnoses Diagnosis Primary membranous nephropathy with nephrotic syndrome Nephrotic syndrome documented in this encounter Care Teams Spring Crater Relationship Specialty Start Date End Date Isaiah Angeles MD [address] [facility] [place] [address] PCP - General 08/29/20 documented as of this encounter
--- OUTSIDE RECORDS SUMMARY | 2025-04-28 15:21 | XMS_ITS | Encounter Summary ---
Author Organization [facility] Address [address] [place] [address] Phone Care Team Providers Care Crawler Dragline Operator Name Role Phone Isaiah Angeles MD Primary Care Provider [phone] Encounter Details Date Type Department Care Team ([facility] st Contact Info) Description 01/16/2023 Telephone [facility] [address] [place] [address] Marlene Roman Social History Tobacco Use Types Packs/Day Years [...] encounter Miscellaneous Notes * Telephone Encounter - Marlene Roman - 01/16/2023 9:57 AM EDT PTs mother called says her daughter's BP began going up. BP yesterday at 12:30 128/107 5 PM 129/102 10:00 PM 130/100. Daughter is also experiencing some dizziness that comes and goes. Mother says she has lisinopril that she can use but she would like you to call back and advise on what she should do and how much she should give her. CB Mom, Derrell [phone] documented in this encounter Plan of Treatment Upcoming Encounters Date Type Department Care Team (Late st Contact Info) Description 07/28/2025 1:45 PM EST Office Visit [facility], [address] [facility] [place] [address] John Davila DO [address] [facility] [place] [address] documented as of this encounter Visit Diagnoses Not on filedocumented in this encounter Care Teams Crawler Dragline Operator Relationship Specialty Start Date End Date Isaiah Angeles MD [address] [facility] [place] [address] PCP - General 08/29/20 documented as of this encounter
--- OUTSIDE RECORDS SUMMARY | 2025-04-28 15:21 | XMS_ITS | Clinical Summary ---
Author Organization [facility] Address [address] [place] [address] Phone Care Team Providers Care Color Printer Operator Name Role Phone Isaiah Angeles Primary Care Provider [phone] Isaiah Angeles Unavailable Isaiah Angeles Unavailable [phone] Jas Bergman MD Unavailable [phone] Rinku Eid MD Unavailable Fariba Mathur MD Unavailable Allergies Active Allergy Reactions Criticality Noted Date Comments Adhesive Tape-Silicones 01/09/2019 Codeine Hives,Itching,Other 07/01/2007 Reaction Type from PowerChart: Allergy; Lactose 01/08/2022 Rituximab Anaphylaxis,Dizzines s,Headache,Itching,R naeem,Shortness of breath 04/12/2022 developed anaphylaxis with throat closure sensation and facial swelling needed brief epinephrine drip Medications fluticasone (Flovent HFA) 110 mcg/actuation inhaler Dose Amount: 2 puff, INH, BID, Dispense Quantity: 1 EA, Entered: 05/24/17 10:13:14 EDT 7 Active hyoscyamine (NuLev) 0.125 mg disintegrating tablet Dose: 0.125 mg, Dose Amount: 1 tab, PO, TID, PRN Abdominal Pain, Special Instructions: allow tablet to dissolve on tongue. May repeat 2nd dose 30 min after 1st dose if needed, Dispense Quantity: 90 tab, Refills: 1, Entered: 11/29/16 8:52:12 EDT, STOP... 7 Active ibuprofen 200 mg tablet Dose: 200 mg, Dose Amount: 1 tab, PO, PRN as needed for pain, Entered: 01/08/17 9:40:05 EDT 7 Active lacosamide (Vimpat) 50 mg tablet Dose: 50 mg, Dose Amount: 1 tab, PO, BID, Entered: 10/26/20 13:07:00 EST 1 Active Trileptal (Oxcarbazepine brand medically necessary) 150 mg tablet Dose: 150 mg, Dose Amount: 1 tab, PO, BID, Dispense Quantity: 60 tab, Refills: 2, Entered: 02/15/23 13:23:00 EDT, [facility] 3 Active levothyroxine sodium (LEVOTHYROXINE, BULK, MISC) Take 125 mcg by mouth 1 time each day. 2 Active LISINOPRIL ORAL Take 5 mg by mouth 1 time each day. 2 Active Active Problems Problem Noted Date Diagnosed Date Lower abdominal pain 04/24/2024 Family History Medical History Relation Name Comments Asthma Brother Diabetes Maternal Grandfather Heart attack Maternal Grandfather d at age 47 Hypertension Maternal Grandfather Hypothyroidism Maternal Grandfather Mary's thyroiditis Mother's Sister Heart attack Mother's Sister Thyroid cancer Mother's Sister complex regional pain syndrome Sister loose joints Sister Aavjhes-6-ujtr deficiency Neg Hx Malig Hyperthermia Neg Hx Mastocytosis Neg Hx Pseudochol deficiency Neg Hx Relation Name Status Comments Brother Maternal Grandfather Mother's Sister Alive Sister Social History Tobacco Use Types Packs/Day Years Used Date Smoking Tobacco: Never Assessed Comments No Sex and Gender Information Value Date Recorded Sex Assigned at Not on file Legal Sex Female 3:50 PM EDT Gender Identity Not on file Sexual Orientation Not on file Last Filed Vital Signs Vital Sign Reading Time Taken Comments Blood Pressure 135/105 05/28/2024 1:45 PM EDT Pulse 88 05/28/2024 1:45 PM EDT Temperature 36.6 C (97.9 F) 05/28/2024 1:45 PM EDT Respiratory Rate 20 05/28/2024 1:45 PM EDT Oxygen Saturation 100% 05/28/2024 1:45 PM EDT Inhaled Oxygen Concentration - - Weight 66 kg (145 lb 8.1 oz) 05/28/2024 10:03 AM EDT Height 156.7 cm (5' 1.69 ) 03/07/2023 3:01 PM ED T Body Mass Index 26.88 03/07/2023 3:01 PM EDT Plan of Treatment Upcoming Encounters Date Type Department Care Team (Late st Contact Info) Description 10/31/2025 Lab Requisition Cerner Conversion [facility] Health Maintenance Due Date Last Done Comments HIV Screening 1996 Hepatitis C Screening 02/17/2014 Influenza Vaccine (#1) 2025 , 05/16/2023, 06/03/2022, Additional history exists DTaP/Tdap/Td Vaccines (8 - Td or Tdap) 08/15/2032 08/15/2022, 11/10/2008, 04/25/2001, Additional history exists HIB Vaccines Completed 06/16/1997, 05/20, 1996, Additional history exists Hepatitis B Vaccines Completed 06/16/1997, 1996, 1996, Additional history exists IPV Vaccines Completed 04/25/2001, 02/2001, 10/11/1997, Additional history exists MMR Vaccines Completed 04/25/2001, 06/16/1997 Varicella Vaccines Completed 11/10/2008, 02/16/1997 Meningococcal Vaccine Completed 01/25/2014 , 01/25/2014, 11/10/2008 HPV Vaccines Completed 08/29/2015, 04/2014, 12/29/2012 Hepatitis A Vaccines Aged Out No long er eligible based on patient's age to complete this topic Meningococcal B Vaccine Aged Out No l onger eligible based on patient's age to complete this topic Pneumococcal Vaccine: Pediatrics (0 to 5 Years) and At-Risk Patients (6 to 49 Years) Aged Out No longer eligible based on patient's age to complete this topic Rotavirus Vaccines Aged Out No longer eligible based on patient's age to complete this topic Insurance [facility] [place] Advance Directives For more information, please contact: [phone] (Available ) Documents on File Type Date Recorded Patient Digital Project Coordinator Expl anation Advance Directives and Livin g Will 05/29/2024 2:51 PM Care Teams Color Printer Operator Relationship Specialty Start Date End Date Isaiah Angeles [address] [place] [address] PCP - General 01/25/17 Isaiah Angeles [address] [facility] [place] [place] [address] PCP - Insurance PCP 09/23/18 Isaiah Angeles [address] [place] [address] PCP - Clinical PCP 01/25/17 Jas Bergman MD [address] [place] [address] Emergency Dispatch Operator 01/18/24 Rinku Eid MD [address] [place] [address] HC CV Surgeon 01/18/24 Fariba Mathur MD [address] [place] [address] HC Outside Emergency Dispatch Operator 01/18/24
--- OUTSIDE RECORDS SUMMARY | 2025-04-28 15:21 | XMS_ITS | Clinical Summary ---
Author Organization [facility] Address [address] [place] [address] Phone Care Team Providers Care Medical Affairs Manager Name Role Phone Marlene Head MD Primary Care Provider [phone] Immunizations Immunization Administration Dates Next Due DTP 1996,1996,1996 DTaP 5 04/25/2001,10/11/1997 H1N1 Inj 06/29/2009 HPV Vaccine 9 Valent 08/29/2015 HPV, Quadrivalent 01/25/2014,12/29/2012 Hep B, ped/adol 1996,1996,1996 Hib (HbOC) 06/16/1997, 7,1996,05/04 Influenza, injectable, quadrivalent 07/03/2016 Influenza, injectable, triva lent, preservative free 08/29/2015,06/15/2014,06/11/2013,06/25,07/05/2011,07/06/2010,05/04/2009 MMR 04/25/2001,06/16/1997 Meningococcal Conj (Menactra) MCV4P 01/25/2014,0 11/10/2008 OPV 04/25/2001, 8,1996,05/04 Tdap 11/10/2008 Varicella 11/10/2008,02/16/1997 Social History Tobacco Use Types Packs/Day Years Used Date Smoking Tobacco: Never Comments:Never Smoker Comments Unknown Sex and Gender Information Value Date Recorded Sex Assigned at Not on file Legal Sex Female 4:31 PM EST Gender Identity Not on file Sexual Orientation Not on file Last Filed Vital Signs Vital Sign Reading Time Taken Comments Blood Pressure 108/52 09/05/2016 11:45 AM EST Pulse - - Temperature 37 C (98.6 F) 09/05/2016 11:45 AM EST Respiratory Rate - - Oxygen Saturation 98% 09/05/2016 11:45 AM EST Inhaled Oxygen Concentration - - Weight 63.5 kg (140 lb) 09/05/2016 11:45 AM EST Height 152.4 cm (5') 09/05/2016 11:45 AM EST Body Mass Index 27.34 09/05/2016 11:45 AM EST Plan of Treatment Health Maintenance Due Date Last Done Comments DTaP,Tdap,and Td Vaccines (7 - Td or Tdap) 11/10/2018 11/10/2008, 04/25/2001, 10/11/1997, Additional history exists Influenza Vaccines (#1) 2025 07/03/20, 08/29/2015, 06/15/2014, Additional history exists COVID-19 Vaccine ( season) 2025 Hepatitis B Vaccines Completed 1996, 1996, 1996 HIB Vaccines Completed 06/16/1997, 08/20, 1996, Additional history exists IPV Vaccines Completed 04/25/2001, 09/20, 1996, Additional history exists MMR Vaccines Completed 04/25/2001, 06/16/1997 Varicella Vaccines Completed 11/10/2008, 02/16/1997 Meningococcal Vaccine Completed 01/25/2014, 009 HPV Vaccines Completed 08/29/2015, 04/2014, 12/29/2012 Hepatitis A Vaccines Aged Out No long er eligible based on patient's age to complete this topic Men B Vaccine Aged Out No longer elig ible based on patient's age to complete this topic Pneumococcal Vaccine Aged Out No long er eligible based on patient's age to complete this topic Care Teams Medical Affairs Manager Relationship Specialty Start Date End Date Marlene Head MD [address] [place] [address] [address] [place] [address] PCP - General 10/08/16
--- OUTSIDE RECORDS SUMMARY | 2025-04-28 15:21 | XMS_ITS | Encounter Summary ---
Author Organization [facility], Address [address] [place] [address] Phone Care Team Providers Care Aircraft Hydraulic Equipment Mechanic Name Role Phone Isaiah Angeles MD Primary Care Provider [phone] Encounter Details Date Type Department Care Team ([facility] Contact Info) Description 05/22/2024 Orders Only [facility] [address] [place] [address] John Davila DO [address] [facility] [place] [address] Nephrotic syndrome Social History Tobacco Use Types [...] Visit [facility] [address] [place] [address] John Davila DO [address] [facility] [place] [address] documented as of this encounter Visit Diagnoses Diagnosis Nephrotic syndrome documented in this encounter Care Teams Aircraft Hydraulic Equipment Mechanic Relationship Specialty Start Date End Date Isaiah Angeles MD [address] [place] [address] PCP - General 08/29/20 documented as of this encounter
--- OUTSIDE RECORDS SUMMARY | 2025-04-28 15:21 | XMS_ITS | Clinical Summary ---
Author Organization [facility], Address [address] [place] [address] [place] [address] Phone Care Team Providers Care Machine Precision Etcher Name Role Phone Isaiah Angeles MD Primary Care Provider +1- [phone] Allergies Active Allergy Reactions Criticality Noted Date Comments Adhesive Tape 01/09/2019 Wound Dressings Other (see comments) 07/16/2022 surgical tape allergy as per family Codeine Other (see comments) 10/05/2020 Rituximab 07/16/2022 developed anaphylaxis with throat closure sensation and facial swelling needed brief epinephrine drip Medications fluticasone HFA (Flovent HFA) 110 MCG/ACT inhaler Inhale 2 puffs 1 (one) time each day Active lidocaine (LIDODERM) 5 % patch APPLY ONE PATCH EXTERNAL EVERY DAY NEEDED 1 Active Nurtec 75 MG tablet dispersible 2 Active RABEprazole (ACIPHEX) 20 MG EC tablet Take 20 mg by mouth 1 (one) time each day 3 Active Cholecalciferol (Vitamin D3) 50 MCG (1999 UT) chewable tablet CHEW AND SWALLOW TWO TABLETS BY MOUTH EVERY DAY 3 Active levothyroxine (SYNTHROID, LEVOTHROID) 112 MCG tablet TAKE TWO TABLETS BY MOUTH EVERY DAY. DOSE INCREASED DUE TO SIGNIFICANT FLUCTUATION IN THYROID LEVELS. PLEASE REPEAT LABS IN 2 WEEKS 3 Active Tirosint-CRISS 100 MCG/ML solution TAKE 2ML BY MOUTH ONCE DAILY WITH 25MCG FOR TOTAL DAILY DOSE OF 225MCG DAILY 3 Active Tirosint-CRISS 25 MCG/ML solution TAKE ONE ML BY MOUTH WITH 200MCG DAILY FOR DAILY DOSE OF 225MCG 3 Active Cholecalciferol (Vitamin D3) 1.25 MG (79897 UT) capsule TAKE ONE CAPSULE BY MOUTH EVERY WEEK FOR 8 WEEKS. PLEASE RESUME 2000 IUS UNITS) DAILY WHEN FINISHED WITH THIS THERAPY 3 Active tacrolimus (PROGRAF) 1 MG capsule Take 2 capsules (2 mg total) by mouth in the morning and 2 capsules (2 mg total) in the evening. 360 capsule 3 4 06/29/20 25 Active lisinopril 40 MG tablet Take 1 tablet (40 mg total) by mouth 1 (one) time each day 90 tablet 3 5 08/26/19 26 Active metoprolol tartrate 25 MG tablet Take 1 tablet (25 mg total) by mouth in the morning and 1 tablet (25 mg total) in the evening. 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 1 09/15/2021 Dysmorphic features 07/16/2022 12/06/19 24 Eosinophilic esophagitis 07/16/2022 Hereditary disease 07/16/2022 4 Left lower quadrant pain 07/16/2022 Migraine 07/16/2022 12/06/2023 Mitral valve anterior leaflet prolapse 07/16/2022 12/06/2023 Non-alcoholic fatty liver 07/16/2022 Noncompliance with medication regimen 07/16/2022 07/16/2022 Obstructive sleep apnea syndrome 07/16/2022 12/06/2023 Omental infarction 07/16/2022 4 Orthostatic proteinuria 07/16/202206/20 Osteoporosis 07/16/2022 07/16/2022 Syringomyelia and syringobulbia 07/16/2022 12/06/2023 Overview (07/16/2022): Thoracic Left flank pain 10/05/2020 11/02/2021 Mary's thyroiditis 05/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 Exam today is without any synovitis but generalized hypermobility which I feel is probably source of much of her arthralgias. She would benefit from generalized strengthening progrms and is agreeable ton pool therapy Her mother will look into programs and let me know Which program to send my referral to. She may find Voltaren gel More effective than lidoderm cream and will try OTC Voltaren gel to hands and feet I woul like to review her most recent labs, Her mother will forward a copy to me F/u in 3 monyhs Last Assessment & Plan: Hx of generalized arthralgias with neg workup for inflammatory arthritis . Exam today is without any synovitis but generalized hypermobility which I feel is most likely responsible for much of her arthralgias. She will probably benefit from a generalized strengthening Program and will return to the pool program once she gets her energy back Previous workup for auto-immune illness was unrevealing but will do additional labs today to be complete Encounters Date Type Department Care Team Description 04/23/2025 Orders Only [facility], [address] [place] [address] John Davila, Primary membranous nephropathy with nephrotic syndrome; History of nephrotic syndrome; Essential hypertension; Persistent proteinuria 04/16/2025 Orders Only [facility], [address] [place] [address] John Davila, Primary membranous nephropathy with nephrotic syndrome; Nephrotic syndrome; Persistent proteinuria 04/09/2025 Orders Only [facility] [address] [place] [address] John Davila DO History of nephrotic syndrome; Renal hypertension; Primary membranous nephropathy with nephrotic syndrome; Persistent proteinuria 03/22/2025 Refill [facility] [address] [place] [address] Joshua Bowers MA 03/19/2025 Orders Only [facility] [address] [place] [address] John Davila DO Primary membranous nephropathy with nephrotic syndrome; Nephrotic syndrome; Persistent proteinuria 03/12/2025 Orders Only [facility] [address] [place] [address] John Davila DO History of nephrotic syndrome; Renal hypertension; Primary membranous nephropathy with nephrotic syndrome; Persistent proteinuria 03/05/2025 Documentation Only [facility] [address] [place] [address] Joshua Bowers MA 02/26/2025 Orders Only [facility] [address] [place] [address] John Davila DO Primary membranous nephropathy with nephrotic syndrome; History of nephrotic syndrome; Essential hypertension; Persistent proteinuria 02/19/2025 Orders Only [facility] [address] [place] [address] John Davila DO Primary membranous nephropathy with nephrotic syndrome; Nephrotic syndrome; Persistent proteinuria 2025 Documentation Only [facility] [address] [place] [address] Joshua Bowers MA 02/12/2025 Documentation Only [facility] [address] [place] [address] Joshua Bowers [place] 02/12/2025 Orders Only [facility], [address] [place] [address] John Davila DO History of nephrotic syndrome; Renal hypertension; Primary membranous nephropathy with nephrotic syndrome; Persistent proteinuria from Last 3 Months Immunizations Immunization Administration Dates Next Due DTP 1996,1996,1996 DTaP 04/25/2001, 8,1996,07/08,1996 DTaP 5 04/25/2001,10/11/1997 H1N1 Inj 06/29/2009 HPV, Bivalent 08/29/2015 HPV, Quadrivalent 01/25/2014,12/29/2012 Hep B / HiB 06/16/1997, 7,1996,05/04 Hep B, Adolescent or Pediatric 1996,1995,1996 Hib (HbOC) 06/16/1997, 7,1996,05/04 IPV 04/25/2001, 8,1996,05/04 Influenza (IM) Preservative Free 016,06/15/2014,06/11/2013,06/25,07/05/2011,07/06/2010,05/04/2009 Influenza, MDCK, PF, Quadrivalent 07/06/2018 Influenza, Quadrivalent, Pre servative Free 05/16/2020 Influenza, Quadrivalent, Wit h Preservative 07/03/2016 Influenza, Unspecified 07/08/2024,2022,05/16/2020,09/14 MMR 04/25/2001,06/16/1997 Meningococcal MCV4P 01/25/2014,11/10/2008 Meningococcal, Unspecified 01/25/2014 Moderna SARS-COV-2 07/12/2021 OPV 04/25/2001, 8,1996,05/04 Pfizer SARS-COV-2 12/18/2020,11/27/2020 SARS-CoV-2, Unspecified 07/05/2022 Tdap 11/10/2008 Varicella 11/10/2008,02/16/1997 Family History Medical History Relation Comments Hypertension Father Relation Status Comments Father Unknown Mother Alive Social History Tobacco Use Types Packs/Day Years Used Date Smoking Tobacco: Never Smokeless Tobacco: Never Tobacco Cessation:Counseling Given: Not Answered Alcohol Use Standard Drinks/Week Comments No 0 (1 standard drink = 0.6 oz pur e alcohol) Comments No Sex and Gender Information Value Date Recorded Sex Assigned at Not on file Legal Sex Female 4:55 PM EST Gender Identity Not on file Sexual Orientation Not on file Last Filed Vital Signs Vital Sign Reading Time Taken Comments Blood Pressure 122/82 01/20/2025 3:01 PM EDT Pulse 70 01/20/2025 3:01 PM EDT Temperature - - Respiratory Rate - - Oxygen Saturation 99% 05/07/2023 2:45 PM EDT Inhaled Oxygen Concentration - - Weight 84 kg (185 lb 3.2 oz) 05/07/2023 2:45 PM EDT Height 152.4 cm (5') 05/07/2023 2:45 PM EDT Body Mass Index 36.17 05/07/2023 2:45 PM EDT Plan of Treatment Upcoming Encounters Date Type Department Care Team (Late st Contact Info) Description 07/28/2025 1:45 PM EST Office Visit [facility], [address] [place] [address] John Davila DO [address] [facility] [place] [id number] Health Maintenance Due Date Last Done Comments Pneumococcal Vaccine: Peds ( 0 to 5 Years) and At-Risk Patients (6 to 49 Years) (1 of 2 - PCV) 02/17/2015 Influenza Vaccine (#1) 2025 4, 05/16/2023, 05/16/2020, Additional history exists Hepatitis B Vaccine Completed 06/16/1997, 1996, 1996, Additional history exists Procedures Procedure Name Priority Date/Time Associated Diagnosis Comments TACROLIMUS, HIGHLY SENSITIVE, LC/MS/MS Routine 04/27/2025 9:00 AM EDT History of nephrotic syndrome Renal hypertension Primary membranous nephropathy with nephrotic syndrome Persistent proteinuria URINALYSIS WITH MICROSCOPIC Routine 04/27/2025 9:00 AM EDT History of nephrotic syndrome Renal hypertension Primary membranous nephropathy with nephrotic syndrome Persistent proteinuria URINE ALBUMIN / CREATININE RATIO Routine 04/27/2025 [...] NOT USE Routine 04/27/2025 9:00 AM EDT THYROID PEROXIDASE ANTIBODY Routine 02/10/2025 12:16 PM EDT CBC Routine 02/10/2025 12:16 PM EDT from Last 3 Months Results * (ABNORMAL) Tacrolimus, Highly Sensitive, LC/MS/MS (04/27/2025 9:00 AM EDT) Tacrolimus by Immunoassay 4.2(L) 5.0 - 20.0 ng/mL [facility] Comment: Detection Limit = 0.8 ng/mL Target [...] Tacrolimus assay performed by [employer] Immunoassay. 04/27/2025 9:00 AM EDT 04/27/2025 John Davila DO LAB BLOOD ORDERABLES Final Resu lt [facility] [address] [place] [address] * (ABNORMAL) Microscopic Examination (04/27/2025 9:00 AM EDT) WBC, Urine 11-30(A) 0 - 5 /hpf [facility] RBC, Urine 0-2 0 - 2 /hpf [facility] Squamous Epithelial, Urine >10(A) 0 - 10 /hpf [facility] Casts None seen None seen /lpf [facility] Bacteria, Urine Moderate(A ) None seen/Few [facility] 04/27/2025 9:00 AM EDT 04/27/2025 John Davila DO LAB MICROBIOLOGY - GENERAL ORDE RABLES Final Result Performing Organization Address City/[facility]/ZIP Co de Phone Number [facility] [address] [place] [address] * Urine Albumin / Creatinine Ratio (04/27/2025 9:00 AM EDT) Creatinine, Ur 584.0 Not Estab. mg/dL [facility] Albumin, Urine 110.4 Not Estab. ug/mL [facility] Albumin/Creatin ine Ratio 19 0 - 29 mg/g creat [facility] Comment: Normal: 0 - 29 Moderately increased: 30 - 300 Severely increased: >300 Urine Urine specimen obtained by clean catch procedure / Unknown 04/27/2025 9:00 AM EDT 04/27/2025 John Davila DO LAB URINE ORDERABLES Final Resu lt [facility] [address] [place] [address] * (ABNORMAL) Urinalysis with microscopic (04/27/2025 9:00 AM EDT) Specific [place], Urine >=1.030(A) 1.005 - 1.030 [facility] pH Urine 5.5 5.0 - 7.5 [facility] Color, Urine Yellow Yellow [facility] Appearance Urine Clear Clear [facility] WBC Esterase Urine Negative Negative [facility] [phone] Protein, Ur 1+(A) Negative/Tra ce [facility] Glucose, Ur Negative Negative [facility] Ketones, Urine Negative Negative [facility] Blood Urine Negative Negative [facility] Bilirubin Urine Negative Negative [facility] Urobilinogen Urine 1.0 0.2 - 1.0 mg/dL [facility] Nitrite, Urine Negative Negative [facility] Microscopic Examination See below: [facility] Comment:Microscopic was bubba cated and was performed. Urine Urine specimen obtained by clean catch procedure / Unknown 04/27/2025 9:00 AM EDT 04/27/2025 John Wardry DO LAB URINE ORDERABLES Final Resu lt [facility] [address] [place] [address] * (ABNORMAL) CBC (04/27/2025 9:00 AM EDT) Only the most recent of2 resultswithin the time period is included. WBC 5.3 3.4 - 10.8 x10E3/uL [facility] RBC 3.42(L) 3.77 - 5.28 x10E6/uL [facility] Hemoglobin 10.5(L) 11.1 - 15.9 g/dL [facility] Hematocrit 30.8(L) 34.0 - 46.6 % [facility] MCV 90 79 - 97 fL [facility] MCH 30.7 26.6 - 33.0 pg [facility] MCHC 34.1 31.5 - 35.7 g/dL [facility] RDW 12.3 11.7 - 15.4 % [facility] Platelets 300 150 - 450 x10E3/uL [facility] Blood Venous blood / Unknown 04/27/2025 9:00 AM EDT 04/27/2025 us John Davila DO LAB BLOOD ORDERABLES Final Resu lt [facility] [address] [place] [address] * (ABNORMAL) Comprehensive metabolic panel (04/27/2025 9:00 AM EDT) Pathologist [facility] Glucose 93 70 - 99 mg/dL [facility] BUN 12 6 - 20 mg/dL [facility] Creatinine 1.39(H) 0.57 - 1.00 mg/dL [facility] eGFR CKD-EPI CR 2020 53(L) >59 mL/min/1.7 3 [facility] BUN/Creatinine Ratio 9 9 - 23 [facility] Sodium 135 134 - 144 mmol/L [facility] Potassium 4.5 3.5 - 5.2 mmol/L [facility] Chloride 99 96 - 106 mmol/L [facility] Bicarbonate (CO2) 22 20 - 29 mmol/L [facility] Calcium 9.3 8.7 - 10.2 mg/dL [facility] Total Protein 7.5 6.0 - 8.5 g/dL [facility] Albumin 4.7 4.0 - 5.0 g/dL [facility] Globulin 2.8 1.5 - 4.5 g/dL [facility] Total Bilirubin 0.9 0.0 - 1.2 mg/dL [facility] Alkaline Phosphatase 47 44 - 121 IU/L [facility] Comment: Effective May 03, 2025 Alkaline Phosphatase [...] (SGOT) 22 0 - 40 IU/L [facility] ALT (SGPT) 5 0 - 32 IU/L [facility] Blood Venous blood / Unknown 04/27/2025 9:00 AM EDT 04/27/2025 Johnwesley Davila DO LAB BLOOD ORDERABLES Final Resu lt [facility] [address] [place] [address] * (ABNORMAL) Anti Thyroid Peroxidase Ab (02/10/2025 12:16 PM EDT) Thyroid Peroxidase Antibodies 395(H) 0 - 34 IU/mL [facility] 02/10/2025 12:1 6 PM EDT 02/10/2025 John Davila DO LAB BLOOD ORDERABLES Final Resu lt [facility] [address] [place] [address] from Last 3 Months Insurance [facility] Medicaid [place] Care Teams Machine Precision Etcher Relationship Specialty Start Date End Date Isaiah Angeles MD [address] [place] [address] [address] [place] [address] PCP - General 08/29/20
--- OUTSIDE RECORDS SUMMARY | 2025-04-28 15:21 | XMS_ITS | Encounter Summary ---
Author Organization [facility], Address [address] [place] [address] Phone Care Team Providers Care Recycling Collections Driver Name Role Phone Isaiah Angeles MD Primary Care Provider +1- [phone] Encounter Details Date Type Department Care Team (Late Contact Info) Description 06/30/2024 Documentation Only [facility], [address] [place] [address] John Davila DO [address] [facility] [place] [address] Social History Tobacco Use Types [...] Visit [facility], [address] [place] [address] John Davila DO [address] [facility] [place] [address] documented as of this encounter Visit Diagnoses Not on filedocumented in this encounter Care Teams Recycling Collections Driver Relationship Specialty Start Date End Date Isaiah Angeles MD [address] [place] [address] PCP - General 08/29/20 documented as of this encounter
--- OUTSIDE RECORDS SUMMARY | 2025-04-28 15:21 | XMS_ITS | Encounter Summary ---
Author Organization [facility], Address [address] [place] [address] Phone Care Team Providers Care Director Of Labor Relations Name Role Phone Isaiah Angeles MD Primary Care Provider +1- [phone] Encounter Details Date Type Department Care Team ([facility] Contact Info) Description 05/08/2024 Documentation Only [facility], [address] [place] [address] John Davila DO [address] [facility] [place] [address] Social History Tobacco Use Types [...] Visit [facility], [address] [place] [address] John Davila DO [address] [facility] [address] [place] [address] documented as of this encounter Visit Diagnoses Not on filedocumented in this encounter Care Teams Director Of Labor Relations Relationship Specialty Start Date End Date Isaiah Angeles MD [address] [place] [address] PCP - General 08/29/20 documented as of this encounter
--- OUTSIDE RECORDS SUMMARY | 2025-04-28 15:21 | XMS_ITS | Encounter Summary ---
Author Organization [facility] Address [address] [place] [address] Phone Care Team Providers Care Final Block Press Operator Name Role Phone Isaiah Angeles MD Primary Care Provider + Encounter Details Date Type Department Care Team (Latest Contact Info) Description 06/21/2020 Transcribe Orders [facility] [address] [facility] [place] [address] Evette Shaw MD [address] [place] [address] [email or web address] Dysuria (Primary Dx) Social History Tobacco Use Types [...] Office Visit [facility] [address] [place] [address] [place] [address] Cata Esquivel MD [address] [facility], [address] [place] [address] [email or web address] 06/17/2025 1:30 PM EDT Office Visit [facility] [address] [place] [address] Guicho Jose MD [address] [facility] 2nd [place] [address] [email or web address] documented as of this encounter Results * (ABNORMAL) URINALYSIS WITH SEDIMENT (06/21/2020 10:47 AM EST) WBC 5-10(A) NONE SEEN /hpf [facility] RBC 0-2(A) NONE SEEN /hpf [facility] URINE EPITHELIAL 11-20(A) NONE SEEN [facility] MUCUS 1+(A) NONE SEEN /hpf [facility] BACTERIA 1+(A) NONE SEEN /hpf [facility] COLOR Yellow Yellow [facility] CLARITY Clear [facility] GLUCOSE Negative Negative [facility] BILI Negative Negative [facility] KETONES Negative Negative [facility] SPECIFIC GRAVITY >1.030 1.005 - 1.030 [facility] BLOOD Negative Negative [facility] PH 6.0 5.0 - 8.0 [facility] Protein-UA Negative Negative [facility] NITRITE Negative Negative [facility] Leukocyte esterase, ur Negative Negative [facility] Urine (Urine) 06/21/2020 10: 47 AM EST 06/21/2020 2:27 PM EST us Evette Shaw MD URINE ORDERABLES Final Res ult [facility] [address] [place] [address] * (ABNORMAL) Urine culture (06/21/2020 10:47 AM EST) Special Requests None 06/21/2020 10:47 AM EST [facility] GRAM STAIN Rare GRAM NEGATIVE RODS 06/22/2020 9:09 AM EST [facility] Urine Culture 10,000 to 100,000 colony forming units per mL MIXED ROBSON (3 OR MORE COLONY TYPES) Culture indicates contamination . Please resubmit if necessary.(A) 06/22/2020 10:28 AM EST [facility] Urine (Urine) 06/21/2020 10: 47 AM EST 06/21/2020 10:57 AM EST Evette Shaw MD MICROBIOLOGY - GENERAL ORD ERABLES Final Result [address] [address] documented in this encounter Visit Diagnoses Diagnosis Dysuria- Primary documented in this encounter Care Teams Final Block Press Operator Relationship Specialty Start Date End Date Isaiah Angeles MD [address] [place] [address] PCP - General Family Medicine 12/17/18 documented as of this encounter Additional Source Comments The information contained in this document represents components of the legal health record. It is not the complete legal health record.[facility]
--- OUTSIDE RECORDS SUMMARY | 2025-04-28 15:21 | XMS_ITS | Encounter Summary ---
Author Organization [facility], Address [address] [place] [address] Phone Care Team Providers Care Carburetor Specialist Name Role Phone Isaiah Angeles MD Primary Care Provider +1- [phone] Encounter Details Date Type Department Care Team ([facility] Contact Info) Description 02/28/2024 Orders Only [facility] [address] [place] [address] John Davila DO [address] [facility] [place] [address] Nephrotic syndrome Social History Tobacco [...] Visit [facility] [address] [place] [address] John Davila DO [address] [facility] [place] [address] documented as of this encounter Visit Diagnoses Diagnosis Nephrotic syndrome documented in this encounter Care Teams Carburetor Specialist Relationship Specialty Start Date End Date Isaiah Angeles MD [address] [place] [address] PCP - General 08/29/20 documented as of this encounter
--- OUTSIDE RECORDS SUMMARY | 2025-04-28 15:21 | XMS_ITS | Encounter Summary ---
Author Organization [facility], Address [address] [place] [address] Phone Care Team Providers Care Senior Security Analyst Name Role Phone Isaiah Angeles MD Primary Care Provider +1- [phone] Encounter Details Date Type Department Care Team ([facility] Contact Info) Description 05/08/2024 Documentation Only [facility], [address] [place] [address] John Davila DO [address] [facility] [address] [place] [address] Social History Tobacco Use Types [...] Visit [facility], [address] [place] [address] John Davila DO [address] [address] [place] [address] documented as of this encounter Visit Diagnoses Not on filedocumented in this encounter Care Teams Senior Security Analyst Relationship Specialty Start Date End Date Isaiah Angeles MD [address] [place] [address] PCP - General 08/29/20 documented as of this encounter
--- OUTSIDE RECORDS SUMMARY | 2025-04-28 15:21 | XMS_ITS | Patient Health Record ---
Author Organization [facility] Address [address] [place] [address] Care Team Providers Care Climatology Teacher Name Role Phone Zeeshan Bergman Primary Care Provider KarthikIsaiah Unavailable Unavailable Reason For Referral No Information Medications Medication SIG (Take, Route, Frequency, Duration) Notes Start Date End Date Status LORazepam 1 MG 0 Oral SL; Duration: 03/16/2019 Active VITAMIN D3 2,000 UNIT SOFTGEL 0 1 qam; Duration: 30 *please review for potential update for e-prescription and drug interaction check* 09/23/2018 Active SUMATRIPTAN SUCC 100 MG TABLET 9 Take 1 tab at onset of migraine, repeat after 2 hours prn. Take with 2 naproxen.; Duration: 30 *please review for potential update for e-prescription and drug interaction check* ineffextive, no ae 09/23/2018 Active Ondansetron HCl 8 MG 10 Oral PRn CVS; Duration: 09/23/2018 Active Naproxen 375 MG 0 Oral 1 tab bid; Duration: 03/16/2019 Active Ondansetron HCl 4 MG 0 Oral PRn; Duration: 03/16/2019 Active Vimpat 50 MG 0 Oral 1 TAB BID; Duration: 12/10/2018 Active Synthroid 137 MCG 0 Oral qam; Duration: 09/23/2018 Active LO LOESTRIN FE 1-10 TABLET 1 MG-10 MCG (24)/10 MCG (2) 0; Duration: 30 *please review for potential update for e-prescription and drug interaction check* 03/16/[address] 30 MG CAP 60 1 cap qam x 1 week, then 2 caps qam *please review for potential update for e-prescription and drug interaction check* 03/17/2019 Active SLOW FE 45 MG TABLET 142 MG (45 MG IRON) 0; Duration: 30 *please review for potential update for e-prescription and drug interaction check* 03/16/2019 Active MAGNESIUM 250 MG TABLET MG MAGNESIUM 0 bid; Duration: 30 *please review for potential update for e-prescription and drug interaction check* 03/16/2019 Active Plan Of Treatment No Information Insurance Providers Payer Name Payer Address Payer Phone Subscriber Number Group Number Insured Name Patient Relationship to Insured Coverage Start Date Coverage End Date [facility] [address] [place], [place] [id number] Gretchen Drew Self - patient is the insured [place] [employer] [address] [place] [address] [id number] Gretchen Drew Self - patient is the insured
--- OUTSIDE RECORDS SUMMARY | 2025-04-28 15:21 | XMS_ITS | Encounter Summary ---
Author Organization [facility], Address [address] [place] [address] Phone Care Team Providers Care Seam Taper Machine Name Role Phone Isaiah Angeles MD Primary Care Provider [phone] Encounter Details Date Type Department Care Team (Late Contact Info) Description 07/17/2024 Orders Only [facility] [address] [place] [address] John Davila DO [address] [place] [address] Primary membranous nephropathy with nephrotic [...] Visit [facility] [address] [place] [address] John Davila DO [address] [place] [address] documented as of this encounter Procedures Procedure Name Priority Date/Time Associated Diagnosis Comments THYROID PEROXIDASE ANTIBODY Routine 02/10/2025 12:16 PM EDT CBC Routine 02/10/2025 12:16 PM EDT documented in this encounter Results * (ABNORMAL) Anti Thyroid Peroxidase Ab (02/10/2025 12:16 PM EDT) Thyroid Peroxidase Antibodies 395(H) 0 - 34 IU/mL [facility] 02/10/2025 12:1 6 PM EDT 02/10/2025 us John Davila DO LAB BLOOD ORDERABLES Final Resu lt [facility] [address] [place] [address] * CBC (02/10/2025 12:16 PM EDT) WBC 7.0 3.4 - 10.8 x10E3/uL [facility] RBC 3.87 3.77 - 5.28 x10E6/uL [facility] Hemoglobin 11.8 11.1 - 15.9 g/dL [facility] Hematocrit 35.6 34.0 - 46.6 % [facility] MCV 92 79 - 97 fL [facility] MCH 30.5 26.6 - 33.0 pg [facility] MCHC 33.1 31.5 - 35.7 g/dL [facility] RDW 14.9 11.7 - 15.4 % [facility] Platelets 327 150 - 450 x10E3/uL [facility] 02/10/2025 12:1 6 PM EDT 02/10/2025 us John Davila DO LAB BLOOD ORDERABLES Final Resu lt [facility] [place] [address] [place] [address] documented in this encounter Visit Diagnoses Diagnosis Primary membranous nephropathy with nephrotic syndrome History of nephrotic syndrome Essential hypertension Persistent proteinuria documented in this encounter Care Teams Seam Taper Machine Relationship Specialty Start Date End Date Isaiah Angeles MD [address] [place] [address] PCP - General 08/29/20 documented as of this encounter
--- OUTSIDE RECORDS SUMMARY | 2025-04-28 15:21 | XMS_ITS | Encounter Summary ---
Author Organization [facility] Address [address] [place] [address] Phone Care Team Providers Care Hotel Concierge Name Role Phone Marlene Head MD Primary Care Provider [phone] Encounter Details Date Type Department Care Team (Late st Contact Info) Description 09/06/2016 Orders Only [facility], [address] [place] [address] Social History Tobacco Use Types Packs/Day Years [...] on filedocumented in this encounter Care Teams Hotel Concierge Relationship Specialty Start Date End Date Marlene Head MD [address] [place] [address] [address] [place] [address] PCP - General 10/08/16 documented as of this encounter
--- OUTSIDE RECORDS SUMMARY | 2025-04-28 15:21 | XMS_ITS | Encounter Summary ---
Author Organization [facility] Address [address] [place] [address] Phone Care Team Providers Care Title Insurance Examiner Name Role Phone Isaiah Angeles MD Primary Care Provider [phone] Encounter Details Date Type Department Care Team ([facility] Contact Info) Description 03/09/2024 Documentation Only [facility] [address] [place] [address] Nona Cardona [address] [place] [address] Social History Tobacco Use Types Packs/Day [...] Visit [facility] [address] [place] [address] John Davila [address] [place] [address] documented as of this encounter Visit Diagnoses Not on filedocumented in this encounter Care Teams Title Insurance Examiner Relationship Specialty Start Date End Date Isaiah Angeles MD [facility] [address] [facility] [address] PCP - General 08/29/20 documented as of this encounter
--- OUTSIDE RECORDS SUMMARY | 2025-04-28 15:21 | XMS_ITS | Clinical Summary ---
Author Organization [facility] Address [address] [place] [address] Phone Care Team Providers Care Associate Professor Of Forestry Name Role Phone Isaiah Angeles MD Primary Care Provider + Allergies Active Allergy Reactions Criticality Noted Date Comments Adhesive Tape-Silicones 01/09/2019 Codeine 01/09/2019 Rituximab 04/12/2022 developed anaphylaxis with throat closure sensation and facial swelling needed brief epinephrine drip Medications acetaminophen (TYLENOL) 650 MG CR tablet Take 1 tablet (650 mg total) by mouth every 8 (eight) hours as needed. 90 tablet 1 9 Active furosemide (LASIX) 20 MG tablet Take 20 mg by mouth daily as needed. Active fluticasone propionate (FLOVENT HFA) 110 mcg/actuation inhaler Inhale 2 puffs into the lungs. Active lidocaine (LIDODERM) 5 % APPLY ONE PATCH EXTERNAL EVERY DAY NEEDED 1 Active lisinopril (PRINIVIL,ZESTRI L) 5 MG tablet Take 5 mg by mouth daily. 2 Active levothyroxine (SYNTHROID, LEVOTHROID) 112 MCG tablet Take by mouth as directed. 200mcg for 5 days per week and 225mcg for 2 days Active cholecalciferol, vitamin D3, 50 mcg (2,000 unit) Chew CHEW AND SWALLOW TWO TABLETS BY MOUTH EVERY DAY 3 Active LORazepam (ATIVAN) 1 MG tabletIndication s:Claustrophobia Take a half or whole tablet (0.5-1mg) about 20-30 min prior to MRI scan. May repeat a dose after 30min if needed. 2 tablet 3 Active atogepant (QULIPTA) 60 mg tabletIndication s:Intractable migraine without aura and with status migrainosus Take 1 tablet (60 mg total) by mouth daily. 30 tablet 11 5 Active Additional Information Patient not taking.Reported on 03/26/2025 lisinopril (PRINIVIL,ZESTRI L) 40 MG tablet Take 40 mg by mouth daily. Active metoprolol tartrate (LOPRESSOR) 25 MG tablet Take 25 mg by mouth 2 (two) times a day. Active tacrolimus (PROGRAF) 5 MG capsule Take 5 mg by mouth 2 (two) times a day. Active drospirenone (SLYND) 4 mg tabletIndication s:Menorrhagia with irregular cycle,Dysmenorrh ea Take 1 tablet (4 mg total) by mouth daily. 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 Assessment & Plan (04/18/2022 5:10 PM EDT): Hx of generalized arthralgias with neg workup [...] do additional labs today to be complete Assessment & Plan (10/04/2021 11:12 AM EST): Hx of generalized arthralgias with neg workup for inflammatory arthritis . Exam today is without any synovitis but generalized hypermobility which I feel is most likely responsible for much of her arthralgias. She will probably benefit from a generalized strengthening and has started Pool program which she is very happy about . I encouraged her to continue regular sessions May continue OTC Voltaren gel which has very little systemic absorption F/u 6 months Assessment & Plan (06/23/2021 9:47 AM EDT): Hx of generalized arthralgias with neg workup for inflammatory arthritis . Exam today is without any synovitis but generalized hypermobility which I feel is most likely responsible for much of her arthralgias. She would probably benefit from a generalized strengthening Program and agrees to pool therapy. Her mother will look into programs and let me know which program she would like me to send my referral She will try OTC Voltaren gel which has very little systemic absorption. I would like to review most recent labs. Her mom will forward a copy of Labs for my review. 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 Assessment & Plan (10/14/2020 9:53 AM EST): Continue to follow with PCP for Mary thyroiditis monitoring and therapy. 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 Assessment & Plan (10/14/2020 9:52 AM EST): In remission presently. Patient following with [facility] for monitoring and therapy. On Rituxan therapy. Muscle cramps 05/20/2019 Assessment & Plan (02/28/2021 4:42 PM EDT): Continue Aspercreme with Lidocaine, Arnica gel as needed. Assessment & Plan (10/14/2020 9:54 AM EST): Continue Aspercreme with lidocaine, Arnica gel for symptom relief as needed. 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 Will obtain updated hand films and baseline foot films. I think at least some her current joint pain is mechanical (h/o left femur fx and prominent valgus knee deformity bl); she may benefit from dedicated PT +/- physiatry re-evaluation. Discussion of EBF2 de andrea variant noted but I am not aware of if / how this finding impacts clinical practice. Assessment & Plan (02/28/2021 4:43 PM EDT): Continue Tylenol Arthritis 650 mg Take one pill PO every 8 hours for Polyarthralgia pain relief as needed. Assessment & Plan (10/14/2020 9:51 AM EST): Continue tylenol as needed, Aspercreme with lidocaine, Arnica for Polyarthralgia therapy. Pain in both feet 04/08/2019 Assessment & Plan (02/28/2021 4:44 PM EDT): Continue Tylenol Arthritis 650 mg Take one pill PO every 8 hours for foot pain relief as needed. Continue Aspercreme with Lidocaine, Arnica gel for additional pain Relief as needed. Assessment & Plan (10/14/2020 9:55 AM EST): Continue Tylenol, Aspercreme with lidocaine, Arnica gel for foot pain relief as needed. Acute pain of both shoulders 04/08/2019 Encounters Date Type Department Care Team Description 03/26/2025 3:30 PM EDT Office Visit [facility] [address] [place] [address] Cata Esquivel MD Menorrhagia with irregular cycle (Primary Dx); Dysmenorrhea 02/15/2025 Refill [facility] [address] [place] [address] Guicho Jose MD Medication Refill from Last 3 Months Immunizations Immunization Administration Dates Next Due COVID-19 (Pre-06/10) Moderna Vaccine, mRNA, PF 07/12/2021 COVID-19 (Pre-06/10) Pfizer Vaccine, mRNA, PF 12/18/2020,11/27/2020 DTP 1996,1996,1996 Dtap, 5 Pertussis Antigens 04/25/2001,10/11/1997 HPV,bivalent 08/29/2015 HPV,quadrivalent 01/25/2014,12/29/2012 Hepatitis B 1996,1996,1996 Hib,HbOC 06/16/1997, 7,1996,05/04 INFLUENZA, SPLIT VIRUS, TRIVALENT PF 06/2016,06/15/2014,06/11/2013,06/25,07/05/2011,07/06/2010,05/04/2009 INFLUENZA, SPLIT VIRUS, TRIV ALENT W/ PRESERVATIVE IM 09/14/2017 Influenza Quadrivalent MDCK Preservative Free IM 07/06/2018 Influenza Quadrivalent Prese rvative Free IM 05/16/2020 Influenza Quadrivalent w/ Pr eservative IM 07/03/2016 MMR 04/25/2001,06/16/1997 Meningococcal MCV4P 01/25/2014,11/10/2008 Novel [id number], Injectable 06/29/2009 Polio - OPV 04/25/2001, 8,1996,05/04 Tdap 11/10/2008 Varicella 11/10/2008,02/16/1997 Family History Medical History Relation Comments Diabetes Mother Heart attack Mother Hypertension Mother Diabetes Paternal Grandfather Mary's thyroiditis Sister Heart attack Sister Relation Status Comments Father Alive Mother Alive Paternal Grandfather Sister Alive Social History Tobacco Use Types Packs/Day [...] Sign Reading Time Taken Comments Blood Pressure 120/74 03/26/2025 3:33 PM EDT Pulse 86 03/11/2023 2:19 PM EDT Temperature 36.8 C (98.2 F) 03/11/2023 2:19 PM EDT Respiratory Rate 16 12/12/2022 12:55 PM EDT Oxygen Saturation 98% 03/11/2023 2:19 PM EDT Inhaled Oxygen Concentration - - Weight 65.3 kg (144 lb) 03/26/2025 3:33 PM EDT Height 152.4 cm (5') 04/16/2024 2:07 PM EDT Body Mass Index 28.12 04/16/2024 2:07 PM EDT Plan of Treatment Upcoming Encounters Date Type Department Care Team (Late st Contact Info) Description 05/27/2025 3:50 PM EDT Office Visit [facility] [address] [place] [address] [place] [address] Cata Esquivel MD [address] [facility], [address] [place] [address] [email or web address] 06/17/2025 1:30 PM EDT Office Visit [facility] [address] [place] [address] Guicho Jose MD [address] [facility]nd [place] [address] [email or web address] Health Maintenance Due Date Last Done Comments DEPRESSION SCREENING 2008 HEPATITIS C SCREENING 02/17/2014 HIV ONE-TIME SCREENING (18-65 YEARS) 02/17/2014 PNEUMOCOCCAL VACCINES (0-49 years) (1 of 2 - PCV) 02/17/2015 PAP SMEAR 02/17/2017 TSH LEVEL 02/27/2025 02/28/2024, 03/21, 01/09/2021, Additional history exists INFLUENZA VACCINE (#1) 2025 , 05/16/2023, 06/03/2022, Additional history exists COVID-19 VACCINE ( - 2024- season) 2025 07/05/2022, 07/12/2021, 12/18/2020, Additional history exists CREATININE LEVEL 01/01/2026 01/01/2025, 04/2024, 05/26/2024, Additional history exists POTASSIUM LEVEL 01/01/2026 01/01/2025, 11/0 04/2024, 05/26/2024, Additional history exists Adult Td,Tdap Booster 08/15/2032 08/15/2022, 009 HIB VACCINES Completed 06/16/1997, 05/20, 1996, Additional history exists MENINGOCOCCAL VACCINES (ACWY) Completed 01/25/2014, 01/25/2014, 11/10/2008 SMOKING STATUS SCREENING (Once After 26 Yrs) Completed 03/26/2025 HEPATITIS A VACCINES Aged Out No long er eligible based on patient's age to complete this topic MENINGOCOCCAL VACCINES (B) Aged Out N o longer eligible based on patient's age to complete this topic Medical Devices Not on file Procedures Procedure Name Priority Date/Time Associated Diagnosis Comments COMPREHENSIVE METABOLIC PANEL Routine 01/01/2025 8:01 AM EDT Congenital nephrotic syndrome TSH WITH REFLEX Routine 02/28/2024 3:18 PM EDT Myxedema heart disease Avitaminosis D from Last 3 Months or Most Recently Relevant to Health Maintenance Results * Comprehensive metabolic panel (01/01/2025 8:01 AM EDT) SODIUM 135 133 - 146 mmol/L [facility] POTASSIUM 4.1 3.3 - 5.1 mmol/L [facility] CHLORIDE 100 96 - 108 mmol/L [facility] CO2 25 21 - 35 mmol/L [facility] BUN 11 6 - 19 mg/dL [facility] CREATININE 0.90 0.5 - 1.5 mg/dL [facility] GLUCOSE 90 70 - 99 mg/dL [facility] ALBUMIN 4.6 3.9 - 4.8 g/dL [facility] TOTAL PROTEIN 7.6 6.5 - 8.0 g/dL [facility] CALCIUM 9.1 8.4 - 10.3 mg/dL [facility] ALKALINE PHOSPHATASE 51 39 - 117 U/L [facility] TOTAL BILIRUBIN 1.1 0.0 - 1.2 mg/dL [facility] AST 16 0 - 37 U/L [facility] ALT 7 0 - 40 U/L [facility] GLOBULIN 3.0 1 - 4.8 g/dL [facility] EGFR 89 >59 mL/min/1.7 3m2 [facility] Comment:Estimated glomerular filtration rate calculated using the CKD-EPI refit equation. ANION GAP 14 10 - 20 mmol/L [facility] Blood 01/01/2025 8:01 AM EDT 01/01/2025 8:05 AM EDT us John Davila DO LAB BLOOD ORDERABLES Final Re sult [facility] [address] [place] [address] * (ABNORMAL) TSH with reflex (02/28/2024 3:18 PM EDT) TSH 9.70(H) 0.27 - 4.20 uIU/mL [facility] Blood 02/28/2024 3:18 PM EDT 02/28/2024 3:25 PM EDT Martínez Delaney MD LAB BLOOD ORDERABLES Final Result [address] [address] from Last 3 Months or Most Recently Relevant to Health Maintenance Insurance [employer] [facility] [facility] [employer] [facility] [address] [place] [employer] [facility] [facility] [facility] [employer] [facility] [facility] [employer] FAMILY [employer]YEES FAMILY Care Teams Associate Professor Of Forestry Relationship Specialty Start Date End Date Isaiah Angeles MD [address] [place] [id number] PCP - General Family Medicine 12/17/18 Additional Source Comments The information contained in this document represents components of the legal health record. It is not the complete legal health record.[facility]
[2025-05-14 13:38] VITALS: BMI 24.8
--- NOTE | 2025-05-17 08:23 | HO.ANESPROP2 ---
Documented by User: Tri Mcgill NP 05/17/25 08:36 HPI - Anesthesia Eval Consult details Narrative: 30yo F for Upper Endoscopy with Stretching s/p Upper Endoscopy with botox injections 02/2024 with MAC [facility] admit 05/05/25 with Free T4 <0.1, TSH >100. Likely r/t malabsorption of PO levothyroxine (300mcg daily). Rec'd IV levothyroxine inpatient and plan for subcut at home. Mom is legal guardian Complex medical hx. Follows: Cardiology - last seen 10/2024. HTN stable, MVP mild by echo, Routine 1 year f/u Neuro - Hyperreflexia, Migraines, Seizures (none in 2+ years), Chiari 1 malform s/p subocciptal decompression Renal - Membranous GN in remission. BP stable off meds. Creat normalized PMFSH Active Problems Active Problems: All Active Problems Dilated cbd, acquired (Acute) Eosinophilic esophagitis (Acute) Diarrhea (Acute) Past Medical History Medical History Vitamin D deficiency Osteoporosis Omental infarction Nephrotic syndrome NAFL (nonalcoholic fatty liver) History of headache Membranous glomerulonephritis Thyroid disease Genetic disorder HTN (hypertension) Chiari I malformation Graves disease Migraines Mary's thyroiditis ADRIANNA (obstructive sleep apnea) History of seizure Eosinophilic esophagitis Hx of mitral valve prolapse Glomerulonephritis GERD (gastroesophageal reflux disease) History of Chiari malformation FH: cholecystectomy Family History Family History Father HTN (hypertension) Maternal Aunt Thyroid cancer Heart attack Maternal Grandfather Diabetes Liver cyst HTN (hypertension) Family history of problems with anesthesia: No Surgical History Surgical History Hx of prior ablation treatment Hx of colonoscopy Hx of esophagogastroduodenoscopy Hx of abdominal surgery Hx of cholecystectomy History of Problems with Anesthesia: No Social History Social History Are you a primary home care specialist to a significant other at home: No Patient Tobacco Use Status: Never used Tobacco Use of substances other than those prescribed or required for medical reasons: No Are you DNR?: No Advance Directives: No Advance Directives Information Provided: Yes : No Poor oral hygiene: No Meds Allergies Allergy/AdvReac Type Severity Reaction Status Date / Time rituximab (From Rituxan) Allergy Severe Anaphylaxis Verified 09/25/24 10:34 adhesive tape Allergy Intermediate Hives Verified 09/25/24 10:34 codeine Allergy Intermediate Hives Verified 09/25/24 10:34 Home Medications ?Medication ?Instructions ?Recorded ?Confirmed ?Last Taken ?Type furosemide 20 mg tablet 20 mg PO QAM PRN swelling 11/15/21 05/17/25 Unknown History atogepant 60 mg tablet (Qulipta) 60 mg PO DAILY 09/25/24 05/14/25 Unknown History lisinopril 40 mg tablet 40 mg PO DAILY 09/25/24 05/14/25 Unknown History tacrolimus 1 mg capsule, 1 mg PO BID 09/25/24 05/14/25 Unknown History immediate-release cholecalciferol (vitamin D3) 50 100 mcg PO DAILY 05/14/25 05/17/25 Unknown History mcg (2,000 unit) capsule (Vitamin D3) fluticasone propionate 110 1 puff inhalation BID PRN swelling 05/14/25 05/17/25 Unknown History mcg/actuation HFA aerosol inhaler lorazepam 0.5 mg tablet 0.5 mg PO DAILY PRN Anxiety 05/14/25 05/17/25 Unknown History metoprolol tartrate 25 mg tablet 25 mg PO BID 05/14/25 05/14/25 05/18/25 History levothyroxine 150 mcg tablet 300 mcg PO DAILY 05/17/25 05/17/25 Unknown History Exam Height,Weight and Vital Signs: Height 5 ft Weight 57.606 kg Pertinent Lab Results Pertinent Lab Results: Narrative Narrative: ECHO 11/2024 Summary The left ventricular size is normal. Left ventricular wall thickness is normal. The LV systolic function is normal . The left ventricular ejection fraction is 55-60 % by visual estimate. Normal diastolic function. Eccentric posteriorly directed jet of regurgitation noted. Probably mild in severity. The exact mechanism of regurgitation is difficult to determine on the available images. No evidence of mitral stenosis. The right ventricular size and function appears grossly normal. Assessment and Plan Assessment Anesthesia Assessment: Chart Reviewed Final Anesthetic Review Family History of Problems with Anesthesia: No History of Problems with Anesthesia: No Documented by User: Augustus Cade MD 05/18/25 08:53 [facility] Past Medical History Medical History Vitamin D deficiency Osteoporosis Omental infarction Nephrotic syndrome NAFL (nonalcoholic fatty liver) History of headache Membranous glomerulonephritis Thyroid disease Genetic disorder HTN (hypertension) Chiari I malformation Graves disease Migraines Mary's thyroiditis ADRIANNA (obstructive sleep apnea) History of seizure Eosinophilic esophagitis Hx of mitral valve prolapse Glomerulonephritis GERD (gastroesophageal reflux disease) History of Chiari malformation FH: cholecystectomy Family History Family History Father HTN (hypertension) Maternal Aunt Thyroid cancer Heart attack Maternal Grandfather Diabetes Liver cyst HTN (hypertension) Surgical History Surgical History Hx of prior ablation treatment Hx of colonoscopy Hx of esophagogastroduodenoscopy Hx of abdominal surgery Hx of cholecystectomy Social History Social History Are you a primary home care specialist to a significant other at home: No Patient Tobacco Use Status: Never used Tobacco Use of substances other than those prescribed or required for medical reasons: No Are you DNR?: No Advance Directives: No Advance Directives Information Provided: Yes : No Poor oral hygiene: No Meds Allergies Allergy/AdvReac Type Severity Reaction Status Date / Time rituximab (From Rituxan) Allergy Severe Anaphylaxis Verified 09/25/24 10:34 adhesive tape Allergy Intermediate Hives Verified 09/25/24 10:34 codeine Allergy Intermediate Hives Verified 09/25/24 10:34 Home Medications ?Medication ?Instructions ?Recorded ?Confirmed ?Last Taken ?Type furosemide 20 mg tablet 20 mg PO QAM PRN swelling 11/15/21 05/17/25 Unknown History atogepant 60 mg tablet (Qulipta) 60 mg PO DAILY 09/25/24 05/14/25 Unknown History lisinopril 40 mg tablet 40 mg PO DAILY 09/25/24 05/14/25 Unknown History tacrolimus 1 mg capsule, 1 mg PO BID 09/25/24 05/14/25 Unknown History immediate-release cholecalciferol (vitamin D3) 50 100 mcg PO DAILY 05/14/25 05/17/25 Unknown History mcg (2,000 unit) capsule (Vitamin D3) fluticasone propionate 110 1 puff inhalation BID PRN swelling 05/14/25 05/17/25 Unknown History mcg/actuation HFA aerosol inhaler lorazepam 0.5 mg tablet 0.5 mg PO DAILY PRN Anxiety 05/14/25 05/17/25 Unknown History metoprolol tartrate 25 mg tablet 25 mg PO BID 05/14/25 05/14/25 05/18/25 History levothyroxine 150 mcg tablet 300 mcg PO DAILY 05/17/25 05/17/25 Unknown History Exam Exam Date and Time: 05/18/25 Airway Mallampati Class: III TM Dist: >3cm Neck ROM: Full Heart: ST Lungs: CTAB vesicular Other: atypical facies Assessment and Plan Assessment Anesthesia Assessment: Anesthesia Plan Discussed Final Anesthetic Review NPO: Yes ASA Class: III Final Preanesthetic Review: No Changes in Pt Med Stat, Meds/Allgs Chart Reviewed, Consent Obtained/Reviewed and Anes Risks/Benef Reviewed Patient Risk: Intermediate Procedure Risk: Low Anesthetic Plan Anesthetic Plan: MAC: Disposition: Standard PACU
[2025-05-18 07:55] VITALS: BMI 26.5
[2025-05-18 07:57] VITALS: BP 133/90; PULSE 101; RESP 16; TEMP 36.5
[2025-05-18 08:02] LABS: UPreg QC Valid YES
[2025-05-18 08:09] VITALS: O2SAT 100
--- NOTE | 2025-05-18 08:09 | MHC.SHP ---
Pre-Procedural Eval Section A - 24 Hr Update-Section A only Date of Service: 05/18/25 Section B - Complete if H&P > 30 days Chief Complaint: Eosinophilic esophagitis Relevant Family History (Specify if Yes): No Relevant Social History: None Present Medications: see Short Stay Collaborative assessment Medical History: Significant History (Chiari I malformation Graves disease Migraines Mary's thyroiditis ADRIANNA (obstructive sleep apnea) History of seizure Eosinophilic esophagitis Hx of mitral valve prolapse Glomerulonephritis GERD (gastroesophageal reflux disease) History of Chiari malformation FH: cholecystectomy) History of Previous Operations: Relevant previous surgery/procedure and date(s) (Hx of colonoscopy Hx of esophagogastroduodenoscopy Hx of abdominal surgery Hx of cholecystectomy) Allergies: Allergies Allergy/AdvReac Type Severity Reaction Status Date / Time rituximab (From Rituxan) Allergy Severe Anaphylaxis Verified 09/25/24 10:34 adhesive tape Allergy Intermediate Hives Verified 09/25/24 10:34 codeine Allergy Intermediate Hives Verified 09/25/24 10:34 Review of Systems Sugical H&P ROS: Negative: Constitution, Cardiovascular, Respiratory, Neurological, Psychiatric, Hem-Onc, Allergic/Immunologic, Gastrointestinal, Genitourinary, Musculoskeletal, Integumentary, Endocrine and Eyes/Ears/Nose/Throat Exam Surgical H&P Exam: Normal: HEENT (abn facies ), Normal: Heart, Normal: Lungs, Normal: Extremities, Normal: Abdomen, Normal: Skin and Normal: Neurological Plan Diagnosis/Plan: Unchanged I have reviewed the history and physical and performed a pertinent physical examination on my patient. No changes have occurred unless specified. Time Spent With Patient Time: Total time managing care of this patient today ____ minutes.
[2025-05-18] MEDS: Lactated Ringers 1,000 ML 100 ML IVCONT (08:17)
--- NOTE | 2025-05-18 09:11 | W.PM.OPN ---
Operative Note Operative Note Date of Service: 05/18/25 Narrative: Procedure Description: EGD Indication: dysphagia Anesthesia: MAC FLEXIBLE TRANSORAL UPPER GASTROINTESTINAL ENDOSCOPY UPPER ENDOSCOPY Consent: Indications for the procedure and potential complications of bleeding, perforation, reaction to medications and missed diagnosis were discussed with the patient and informed consent was obtained. Instrument: Olympus GIF H 190 J mid size upper endoscope Monitoring: Vital signs and clinical assessment, continuous EKG monitoring, Pulse oximetry, Carbon Dioxide monitoring and blood pressure monitoring were done throughout the procedure. Procedure: The patient was placed in the left lateral decubitis position and pre-procedure medications were administered and a bite block was placed. The endoscope was inserted into the mouth and advanced under direct vision to the third part of duodenum. A careful inspection was made as the upper endoscope was withdrawn including a retroflexed examination of the proximal stomach; Findings and interventions are described below. Findings: Larynx:normal Esophagus: GE junction at 35? cm, diaphragm hiatus at 35 cm, no varices or esophagitis, balloon dilation done in step colon progression from 18-20 mm at LES and UES with superficial tear noted in the distal esophagus about 4-5 cm in length. Stomach: mild streaky erythema,? Grade 2 flap valve on retroflexed examination of the cardia. The pylorus seemed tight so dilated with balloon to 19-20 mm using wire. Duodenum: normal Intervention: balloon dilation with and without wire Impression/Findings: esophageal stricture mild gastritis PLAN: 1 week of magic mouthwash cont PPI
[2025-05-18 09:14] VITALS: BP 121/78; PULSE 100; RESP 12; TEMP 36.4; O2SAT 100
[2025-05-18] MEDS: Mag&Al/Sim/Diphenhyd/Lidocaine 10 ML ORAL.SUSP PO (09:28)
[2025-05-18 09:29] VITALS: BP 126/97; PULSE 105; RESP 18; TEMP 36.8; O2SAT 99
== END 2025-05-18 09:58 | disposition home or self-care (01) ==
PROVIDERS: Nurse Practitioner; PCP Family Medicine; Visit Provider Internal Medicine Gastroenterology
PROC: 0DJ08ZZ Inspection of Upper Intestinal Tract, Via Natural or Artificial Opening Endoscopic (ICD-10-PCS; CPT 43235; principal; 2025-05-18 09:20)
DX: R13.10 Dysphagia, unspecified (principal); K20.0 Eosinophilic esophagitis; K22.2 Esophageal obstruction; K29.60 Other gastritis without bleeding; K44.9 Diaphragmatic hernia without obstruction or gangrene; K83.8 Other specified diseases of biliary tract; K55.069 Acute infarction of intestine, part and extent unspecified; K76.0 Fatty (change of) liver, not elsewhere classified; R19.7 Diarrhea, unspecified; R56.9 Unspecified convulsions; G93.5 Compression of brain; N04.9 Nephrotic syndrome with unspecified morphologic changes; G47.33 Obstructive sleep apnea (adult) (pediatric); E55.9 Vitamin D deficiency, unspecified; M81.0 Age-related osteoporosis without current pathological fracture; Z79.51 Long term (current) use of inhaled steroids; Z79.899 Other long term (current) drug therapy; L23.1 Allergic contact dermatitis due to adhesives; Z88.8 Allergy status to other drugs, medicaments and biological substances; Z88.5 Allergy status to narcotic agent
CPT/HCPCS: 43249; 43245; 81025; C1726; J2704

== ENCOUNTER → 2025-05-18 07:15 | Outpatient (BNV) | payer OTHER, MEDICAID, SELFPAY | PROVIDERS: PCP Family Medicine; Visit Provider Internal Medicine Gastroenterology | DX: R13.10 Dysphagia, unspecified (principal); K22.2 Esophageal obstruction; K29.70 Gastritis, unspecified, without bleeding | CPT/HCPCS: 43248; 43249 ==